=== PATIENT | male | born 1960 | race Caucasian/White ===

== ENCOUNTER 2018-04-29 05:54 | Inpatient (IN) ==
--- NOTE | 2018-04-29 06:23 | ED ---
HPI General Chief complaint: Abdominal Pain Stated complaint: Abd pain/ Time Seen by Provider: 04/29/18 06:06 Source: patient, EMS and old records reviewed Mode of arrival: EMS Limitations: no limitations History of Present Illness HPI narrative: The patient was transferred from [facility] and [place] where he went for evaluation due to right sided abdominal pain since the day before. He had constipation and dark urine. He denied any nausea vomiting dark stools or hematemesis. The patient had an abdominal CT that revealed portal hypertension changes cirrhotic liver and a 3.5 cm staghorn calculus on the right kidney with possible mild duodenitis and cholelithiasis. After reviewing his labs he appear to have pancytopenia and a urinary tract infection for which he was given Zosyn IV. 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 Onset (ago): day(s) (1) Location: abdomen Severity: severe (Resolved now) Quality: stabbing Pain Consistency: constant Relieving factors: medication Related Data Home Medications Medication Instructions Recorded Confirmed Unable to Obtain Home Meds 04/29/18 04/29/18 Allergies Allergy/AdvReac Type Severity Reaction Status Date / Time No Known Allergies Allergy Verified 04/29/18 06:05 Review of Systems ROS: all other systems reviewed are negative PMFSH History History Provided By: Patient, Medical Record and Advertising Account Manager / EMT Medical History Medical History Hx of hepatitis C (Acute) Kidney stone (Acute) Liver disease (Acute) Surgical History Surgical History Hx of cholecystectomy (Acute) Family History Family History Other Diabetes Hypertension Social History Social History Substance History: Active Abuse Second Hand Smoke Exposure: Yes Smoking Status: Former smoker Tobacco Type: Cigarettes How Often Do You Have a Drink Containing Alcohol: Monthly or less Recent Travel in [facility] within the Last 8 Weeks: No Recent Out of Country Travel within the Last 8 Weeks: No Exam Narrative Exam Narrative: GENERAL: Alert and oriented in no distress SKIN: Jaundice poor turgor multiple ecchymosis at various healing stages warm/ dry. HEAD: Atraumatic. Normocephalic. EYES: Pupils equal and round. No scleral icterus. No injection or drainage. ENT: No nasal bleeding or discharge. Mucous membranes pink and moist. NECK: Trachea midline. No JVD. CARDIOVASCULAR: Regular rate and rhythm. No murmur appreciated. RESPIRATORY: No accessory muscle use. Clear to auscultation. Breath sounds equal bilaterally. GASTROINTESTINAL: Abdomen soft, non-tender, nondistended. Hepatic and splenic margins not palpable. MUSCULOSKELETAL: No obvious deformities. No clubbing. No cyanosis. No edema. NEUROLOGICAL: Awake and alert. No obvious cranial nerve deficits. Motor grossly within normal limits. Normal speech. PSYCHIATRIC: Appropriate mood and affect; insight and judgment normal. Course Initial Documented Vital Signs Temperature 97.7 F 04/29/18 06:05 Pulse Rate 67 04/29/18 06:05 Respiratory Rate 15 04/29/18 06:05 Blood Pressure 129/58 L 04/29/18 06:05 Pulse Oximetry 98 04/29/18 06:05 Last Documented Vital Signs Temperature 98.7 F 04/29/18 16:00 Pulse Rate 79 04/29/18 16:00 Respiratory Rate 18 04/29/18 16:00 Blood Pressure 104/57 L 04/29/18 16:00 Pulse Oximetry 97 04/29/18 16:00 Medical Decision Making MDM Narrative Medical Screen Exam Complete: Yes Emergency Medical Condition: Yes Lab Data Result diagrams: 04/29/18 06:50 04/29/18 06:50 Lab Results 04/29/18 04/29/18 04/29/18 Range/Units 06:50 06:50 06:50 WBC 2.9 L (4.0-11.0) th/mm3 RBC 3.11 L (4.50-5.90) mil/mm3 Hgb 11.2 L (13.0-17.0) gm/dL Hct 33.5 L (39.0-51.0) % MCV 107.6 H (80.0-100.0) fL MCH 36.1 H (27.0-34.0) pg MCHC 33.6 (32.0-36.0) % RDW 18.3 H (11.6-17.2) % Plt Count 37 L (150-450) th/mm3 MPV 8.4 (7.0-11.0) fL Prelim Diff (Auto) Slide review pending Neut % (Auto) 65.2 (16.0-70.0) % Lymph % (Auto) 23.9 (9.0-44.0) % [place] % (Auto) 7.8 (0.0-8.0) % Eos % (Auto) 2.5 (0.0-4.0) % Baso % (Auto) 0.6 (0.0-2.0) % Neut # (Auto) 1.9 (1.8-7.7) th/mm3 Lymph # (Auto) 0.7 L (1.0-4.8) th/mm3 [place] # (Auto) 0.2 (0.0-0.9) th/mm3 Eos # (Auto) 0.1 (0.0-0.4) th/mm3 Baso # (Auto) 0.0 (0.0-0.2) th/mm3 WBC Differential . Diff Scan Auto diff confirmed Differential Comment . Platelet Estimate Low L (Normal) Platelet Morphology Normal (Normal) Tear Drop Cells 1+ H (None) Ovalocytes 1+ H (None) Acanthocytes (Spur) Occ H (None) PT 17.6 H (9.8-11.6) sec INR 1.7 Ratio Sodium 137 (136-145) meq/L Potassium 3.7 (3.5-5.1) meq/L Chloride 104 (98-107) meq/L Carbon Dioxide 25.1 (21.0-32.0) meq/L Anion Gap 8 (5-15) meq/L BUN 15 (7-18) mg/dL Creatinine 0.80 (0.60-1.30) mg/dL Estimated GFR Greater than 89 (>89) mL/min Random Glucose 126 H (74-106) mg/dL Calcium 7.8 L (8.5-10.1) mg/dL Total Bilirubin 8.5 H (0.2-1.0) mg/dL AST 233 H (15-37) U/L ALT 117 H (12-78) U/L Alkaline Phosphatase 117 (45-117) U/L Total Protein 7.5 (6.4-8.2) g/dL Albumin 2.0 L (3.4-5.0) g/dL Discharge Plan Discharge Disposition Patient Disposition: 30 Still Patient Discharge Condition Condition: Stable Discharge Details Diagnosis: Staghorn renal calculus, Acute UTI, Liver cirrhosis, Hep C w/o coma, chronic Physicians Team ED Provider: Michael Avilez Primary Care Provider: Primary Care Irasema Cosby Attending Provider: Nikole Hensley Other Providers: Lam Linder Discharge Interventions Interventions: ED Discharge Assessment Last Done: 04/29/18 08:41 Status ED Status: Left Department Discharge Information Discharge Date/Time: 04/29/18 08:42
[2018-04-29] MEDS ORDERED: Bisacodyl 10 MG Supp RECTAL PRN (06:28)
[2018-04-29] MEDS ORDERED: Piperacil/Tazo 3.375 GM Premix 50 ML IV.SIG SCH (06:30)
[2018-04-29 07:23] LABS: Baso % (Auto) 0.6 % (0.0-2.0); Eos # (Auto) 0.1 th/mm3 (0.0-0.4); Eos % (Auto) 2.5 % (0.0-4.0); Hematocrit 33.5 % (39.0-51.0); Hemoglobin 11.2 gm/dL (13.0-17.0); Lymph # (Auto) 0.7 th/mm3 (1.0-4.8); Lymph % (Auto) 23.9 % (9.0-44.0); Mean Corpuscular HGB Conc 33.6 % (32.0-36.0); Mean Corpuscular Hemoglobin 36.1 pg (27.0-34.0); Mean Corpuscular Volume 107.6 fL (80.0-100.0); Mean Platelet Volume 8.4 fL (7.0-11.0); Mono # (Auto) 0.2 th/mm3 (0.0-0.9); Mono % (Auto) 7.8 % (0.0-8.0); Neut # (Auto) 1.9 th/mm3 (1.8-7.7); Neut % (Auto) 65.2 % (16.0-70.0); Platelet Count 37 th/mm3 (150-450); Red Blood Count 3.11 mil/mm3 (4.50-5.90); Red Cell Distribution Width 18.3 % (11.6-17.2); White Blood Count 2.9 th/mm3 (4.0-11.0)
[2018-04-29 07:27] LABS: INR 1.7 Ratio; Prothrombin Time 17.6 sec (9.8-11.6)
[2018-04-29 07:41] LABS: Anion Gap 8 meq/L (5-15); Aspartate Aminotransferase 233 U/L (15-37); Blood Urea Nitrogen 15 mg/dL (7-18); Calcium 7.8 mg/dL (8.5-10.1); Carbon Dioxide 25.1 meq/L (21.0-32.0); Chloride 104 meq/L (98-107); Glomerular Filtration Rate Greater Than 89 mL/min (>89); Glucose,Random 126 mg/dL (74-106); Potassium 3.7 meq/L (3.5-5.1); Sodium 137 meq/L (136-145)
[2018-04-29 07:42] LABS: Alanine Aminotransferase 117 U/L (12-78)
[2018-04-29 07:44] LABS: Alkaline Phosphatase 117 U/L (45-117); Total Protein 7.5 g/dL (6.4-8.2)
[2018-04-29] MEDS: Sod Chloride 0.9% Inj 1,000 ML IV.CONT SCH ×2 (07:57→17:46)
[2018-04-29 08:05] LABS: Acanthocytes Occ; Ovalocytes 1+; Platelet Morphology Normal (Normal); Tear Drop Cells 1+
--- NOTE | 2018-04-29 09:16 | P.HP ---
History of Present Illness Primary Care Physician: No Primary Care Physician History of Present Illness: 58-year-old male with past medical history of hep C liver cirrhosis, is ambulating in the wheelchair, the patient was transferred from [facility] and [place] where he went for evaluation due to right sided abdominal pain since the day before. He had constipation and dark urine. He denied any nausea vomiting dark stools or hematemesis. The patient had an abdominal CT that revealed portal hypertension changes cirrhotic liver and a 3.5 cm staghorn calculus on the right kidney with possible mild duodenitis and cholelithiasis. After reviewing his labs he appear to have pancytopenia and a urinary tract infection for which he was given Zosyn IV. 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 Inpatient Certification: I certify that the inpatient services were ordered in accordance with Medicare regulations governing the order. This includes certification that hospital inpatient services are reasonable and necessary and in the case of services not specified as inpatient-only under 42 CFR 419.22(n), that they are appropriately provided as inpatient services in accordance to with the 2-midnight benchmark under 43 CFR 412.3(e) Estimated Total Length of Stay (Days): 3 Plans for Post Hospital Care: Not yet determined Review of Systems All other systems reviewed negative except as stated in HPI PMFSH - History History Provided By: Patient - Medical History Medical History: Medical History (Last Reviewed 04/29/18 @ 09:15 by Nikole Hensley MD) Hx of hepatitis C Kidney stone Liver disease - Surgical History Surgical History: Surgical History (Last Reviewed 04/29/18 @ 09:15 by Nikole Hensley MD) Hx of cholecystectomy - Family History Family History: Family History (Last Updated 04/29/18 @ 15:22 by Nikole Hensley MD) Other Diabetes Hypertension - Tobacco History Second Hand Smoke Exposure: Yes Tobacco Use In Past 30 Days: Yes Smoking Status: Former smoker Tobacco Type: Cigarettes - Alcohol History How Often Do You Have a Drink Containing Alcohol: Monthly or less - Substance Use History Substance History: Active Abuse - Substance Use Type Marijuana Status: Active Route Used: By Mouth Reason for Use: Calm Down, Feels Good - Travel History Recent Travel in the [facility] Within the Last 8 Weeks: No Recent Travel Out of the Country Within the Last 8 Weeks: No - Immunization History Tetanus Immunization: <5 Years Hx Influenza Vaccine This Season: Yes Medications and Allergies Active Medications: Active Medications Al Hydroxide/Mg Hydroxide (Milk Of Magnesia Liq) 30 ml PO Q12H PRN PRN Reason: Mild Constipation Bisacodyl (Dulcolax Supp) 10 mg RECTAL DAILY PRN PRN Reason: SEVERE CONSITIPATION Piperacillin/Tazobactam/Dextrose (Zosyn 3.375 Gm Premix) 50 mls @ 100 mls/hr IV.SIG Q6H [facility] Last Infusion: 04/29/18 08:52 Dose: Infused Sodium Chloride (Ns Inj) 1,000 mls @ 100 mls/hr IV.CONT .Q10H [facility] Last Admin: 04/29/18 07:57 Dose: 100 mls/hr Lactulose (Lactulose Liq) 30 ml PO DAILY PRN PRN Reason: SEVERE CONSITIPATION Morphine Sulfate (Morphine Inj) 2 mg IV.PUSH Q4H PRN PRN Reason: PAIN 2-10 IF CANT TAKE PO Sennosides (Senokot) 17.2 mg PO Q12H PRN PRN Reason: Moderate Constipation Sodium Chloride (Ns Flush) 2 ml IV.FLUSH BID [facility] Sodium Chloride (Ns Flush) 2 ml IV.FLUSH PRN PRN PRN Reason: FLUSH AFTER USING IV ACCESS Allergies Allergy/AdvReac Type Severity Reaction Status Date / Time No Known Allergies Allergy Verified 04/29/18 06:05 Home Medications Medication Instructions Recorded Confirmed Type ciprofloxacin HCl [Cipro] 500 mg PO DAILY 05/01/18 05/01/18 History cyclobenzaprine 10 mg PO TID PRN 05/01/18 05/01/18 History duloxetine 30 mg PO DAILY 05/01/18 05/01/18 History fludrocortisone 0.1 mg PO BID 05/01/18 05/01/18 History furosemide 40 mg PO BID 05/01/18 05/01/18 History lactulose 10 g PO TID 05/01/18 05/01/18 History magnesium oxide 400 mg PO DAILY 05/01/18 05/01/18 History ondansetron HCl 4 mg PO Q6-8H PRN 05/01/18 05/01/18 History pantoprazole 40 mg PO BID 05/01/18 05/01/18 History potassium chloride 20 meq PO DAILY 05/01/18 05/01/18 History spironolactone 50 mg PO BID 05/01/18 05/01/18 History tamsulosin 0.4 mg PO DAILY 05/01/18 05/01/18 History tenofovir disoproxil fumarate 300 mg PO DAILY 05/01/18 05/01/18 History Exam Vital signs: Vital Signs 04/29/18 06:05 04/29/18 06:55 04/29/18 07:38 Temperature 97.7 F 98.7 F Pulse Rate 67 65 65 Respiratory Rate 15 15 18 Blood Pressure 129/58 L 129/58 L 135/68 Pulse Oximetry 98 99 04/29/18 08:00 Temperature 98.8 F Pulse Rate 72 Respiratory Rate 18 Blood Pressure 114/57 L Pulse Oximetry 100 Intake & Output 04/28/18 04/29/18 04/29/18 18:59 06:59 18:59 Intake Total 50 / 50 Output Total 100 / 100 Balance -50 / -50 Weight 81.193 kg Intake: IV 50 / 50 Zosyn 3.375 GM Premix 50 ML @ 50 / 50 100 mls/hr IV.SIG Q6H [facility] Rx#: [id number] Output: Urine 100 / 100 Narrative: GENERAL: Pleasant A[place], in bed appears in some distress due to pain . SKIN: Warm and dry. HEAD: Atraumatic. Normocephalic. EYES: Pupils equal and round. No scleral icterus. No injection or drainage. ENT: No nasal bleeding or discharge. Mucous membranes pink and moist. NECK: Trachea midline. No JVD. CARDIOVASCULAR: Regular rate and rhythm. RESPIRATORY: No accessory muscle use. Clear to auscultation. Breath sounds equal bilaterally. GASTROINTESTINAL: Abdomen soft, diffuse tenderness, nondistended. No CVA tenderness, MUSCULOSKELETAL: Extremities without clubbing, cyanosis, or edema. No obvious deformities. NEUROLOGICAL: Awake and alert. No obvious cranial nerve deficits. Motor grossly within normal limits. Five out of 5 muscle strength in the arms and legs. Normal speech. PSYCHIATRIC: Appropriate mood and affect; insight and judgment normal. Results - Labs CBC & Chem 7: 05/01/18 08:00 05/01/18 08:00 Labs: Laboratory Results - last 24 hr 04/29/18 04/29/18 04/29/18 06:50 06:50 06:50 WBC 2.9 L RBC 3.11 L Hgb 11.2 L Hct 33.5 L MCV 107.6 H MCH 36.1 H MCHC 33.6 RDW 18.3 H Plt Count 37 L MPV 8.4 Prelim Diff (Auto) Slide review pending Neut % (Auto) 65.2 Lymph % (Auto) 23.9 [place] % (Auto) 7.8 Eos % (Auto) 2.5 Baso % (Auto) 0.6 Neut # (Auto) 1.9 Lymph # (Auto) 0.7 L [place] # (Auto) 0.2 Eos # (Auto) 0.1 Baso # (Auto) 0.0 WBC Differential . Diff Scan Auto diff confirmed Differential Comment . Platelet Estimate Low L Platelet Morphology Normal Tear Drop Cells 1+ H Ovalocytes 1+ H Acanthocytes (Spur) Occ H PT 17.6 H INR 1.7 Sodium 137 Potassium 3.7 Chloride 104 Carbon Dioxide 25.1 Anion Gap 8 BUN 15 Creatinine 0.80 Estimated GFR Greater than 89 Random Glucose 126 H Calcium 7.8 L Total Bilirubin 8.5 H AST 233 H ALT 117 H Alkaline Phosphatase 117 Total Protein 7.5 Albumin 2.0 L Caprini VTE Risk Assessment Caprini VTE Risk Assessment: Moderate/High Risk (score >= 2) VTE Pharmacological Exception Reason: Coagulopathy,INR elevated, High risk for bleeding Caprini Risk Assessment Model: Point Value = 1 Point Value = 2 Point Value = 3 Point Value = 5 Age 41-60 Minor surgery BMI > 25 kg/m2 Swollen legs Varicose veins or History of unexplained or recurrent spontaneous Oral contraceptives or hormone replacement Sepsis (< 1 month) Serious lung disease, including pneumonia (< 1 month) Abnormal pulmonary function Acute myocardial infarction Congestive heart failure (< 1 month) History of inflammatory bowel disease Medical patient at bed rest Age 61-74 Arthroscopic surgery Major open surgery (> 45 min) Laparoscopic surgery (> 45 min) Malignancy Confined to bed (> 72 hours) Immobilizing plaster cast Central venous access Age >= 75 History of VTE Family history of VTE Factor V Leiden Prothrombin [id number] Lupus anticoagulant Anticardiolipin antibodies Elevated serum homocysteine Heparin-induced thrombocytopenia Other congenital or acquired thrombophilia Stroke (< 1 month) Elective arthroplasty Hip, pelvis, or leg fracture Acute spinal cord injury (< 1 month) Prophylaxis Regimen: Total Risk Factor Score Risk Level Prophylaxis Regimen 0-1 Low Early ambulation 2 Moderate Order ONE of the following: *Sequential Compression Device (SCD) *Heparin 5000 units SQ BID 3-4 Higher Order ONE of the following medications: *Heparin 5000 units SQ TID *Enoxaparin/Lovenox 40 mg SQ daily (WT < 150 kg, CrCl > 30 mL/min) *Enoxaparin/Lovenox 30 mg SQ daily (WT < 150 kg, CrCl > 10-29 mL/min) *Enoxaparin/Lovenox 30 mg SQ BID (WT < 150 kg, CrCl > 30 mL/min) AND/OR *Sequential Compression Device (SCD) 5 or more Highest Order ONE of the following medications: *Heparin 5000 units SQ TID (Preferred with Epidurals) *Enoxaparin/Lovenox 40 mg SQ daily (WT < 150 kg, CrCl > 30 mL/min) *Enoxaparin/Lovenox 30 mg SQ daily (WT < 150 kg, CrCl > 10-29 mL/min) *Enoxaparin/Lovenox 30 mg SQ BID (WT < 150 kg, CrCl > 30 mL/min) AND *Sequential Compression Device (SCD) Assessment and Plan - Plan 58 y.o M with Right Staghorn calculi UTI complicate with renal stones Urology consulted for Rt >3cm staghorn calculi on CT - He needs to be stable enough for his stone procedure - No acute intervention needed per Dr Mckeon urology - He will need a PCNL in the future for treatment of his stone as an outpt - Pt will need to f/u as an outpt with [facility] after d/c - Pain meds per pain scale - On zosyn IV abx. Monitor U cx Chronic medical problems. Hep C and liver cirrhosis appears stable at this time, . Patient says he has been treated for Hep c Discussed Condition With: pt, nurse
--- NOTE | 2018-04-29 12:25 | P.CONURO ---
History of Present Illness Service: Urology Consult date: 04/29/18 Requesting Physician: Amado Sol Reason for Consult: Staghorn calculi Primary Care Provider: No Primary Care Physician Chief Complaint: Back / Flank pain History of Present Illness: The patient is 58y.o M who was transferred from [facility] and [place] where he went for evaluation due to right sided abdominal pain since the day before. He had constipation and dark urine. He denied any nausea vomiting dark stools or hematemesis. The patient had an abdominal CT that revealed portal hypertension changes cirrhotic liver and a 3.5 cm staghorn calculus on the right kidney with possible mild duodenitis and cholelithiasis. After reviewing his labs he appear to have pancytopenia and a urinary tract infection for which he was given Zosyn IV. 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 So Urology was consulted Its difficult to obtain pt's history. It looks like he had stones in the past and some of them he passed, some he had surgery for. He admits that knows about his staghorn for some time already. When he came to ER now his pain was mainly located at the RUQ which is more liver related then to his stone. No f/c/ n/v. Urine is brown color. Currently he has no c/o pain, its much better. Review of Systems All other systems reviewed negative except as stated in HPI PMFSH - History History Provided By: Patient - Medical History Medical History: Medical History (Last Reviewed 04/29/18 @ 09:18 by Sharan Carvalho) Hx of hepatitis C Kidney stone Liver disease - Surgical History Surgical History: Surgical History (Last Reviewed 04/29/18 @ 09:18 by Sharan Carvalho) Hx of cholecystectomy - Tobacco History Second Hand Smoke Exposure: Yes Tobacco Use In Past 30 Days: Yes Smoking Status: Former smoker Tobacco Type: Cigarettes - Alcohol History How Often Do You Have a Drink Containing Alcohol: Monthly or less - Substance Use History Substance History: Active Abuse - Substance Use Type Marijuana Status: Active Route Used: By Mouth Reason for Use: Calm Down, Feels Good - Travel History Recent Travel in the [place] Within the Last 8 Weeks: No Recent Travel Out of the Country Within the Last 8 Weeks: No - Immunization History Tetanus Immunization: <5 Years Hx Influenza Vaccine This Season: Yes Medications and Allergies Active Medications: Active Medications Al Hydroxide/Mg Hydroxide (Milk Of Magnesia Liq) 30 ml PO Q12H PRN PRN Reason: Mild Constipation Bisacodyl (Dulcolax Supp) 10 mg RECTAL DAILY PRN PRN Reason: SEVERE CONSITIPATION Sodium Chloride (Ns Inj) 1,000 mls @ 100 mls/hr IV.CONT .Q10H [facility] Last Admin: 04/29/18 07:57 Dose: 100 mls/hr Piperacillin/Tazobactam/Dextrose (Zosyn 3.375 Gm Premix) 50 mls @ 100 mls/hr IV.SIG Q6H [facility] Lactulose (Lactulose Liq) 30 ml PO DAILY PRN PRN Reason: SEVERE CONSITIPATION Morphine Sulfate (Morphine Inj) 2 mg IV.PUSH Q4H PRN PRN Reason: PAIN 2-10 IF CANT TAKE PO Sennosides (Senokot) 17.2 mg PO Q12H PRN PRN Reason: Moderate Constipation Sodium Chloride (Ns Flush) 2 ml IV.FLUSH BID [facility] Sodium Chloride (Ns Flush) 2 ml IV.FLUSH PRN PRN PRN Reason: FLUSH AFTER USING IV ACCESS Allergies Allergy/AdvReac Type Severity Reaction Status Date / Time No Known Allergies Allergy Verified 04/29/18 06:05 Home Medications Medication Instructions Recorded Confirmed Type Unable to Obtain Home Meds 04/29/18 04/29/18 History Physical Exam Vital Signs - 24 hr 04/29/18 06:05 04/29/18 06:55 04/29/18 07:38 Temperature 97.7 F 98.7 F Pulse Rate 67 65 65 Respiratory Rate 15 15 18 Blood Pressure 129/58 L 129/58 L 135/68 Pulse Oximetry 98 99 04/29/18 08:00 Temperature 98.8 F Pulse Rate 72 Respiratory Rate 18 Blood Pressure 114/57 L Pulse Oximetry 100 Physical Exam: GENERAL: This is a well-nourished, well-developed patient, in no apparent distress. SKIN: No rashes, ecchymoses or lesions. Cool and dry. HEAD: Atraumatic. Normocephalic. CARDIOVASCULAR: Regular rate and rhythm without murmurs, gallops, or rubs. RESPIRATORY: Clear to auscultation. Breath sounds equal bilaterally. No wheezes , rales, or rhonchi. GASTROINTESTINAL: Abdomen soft, non-tender, nondistended. GENITOURINARY: No CVAT MUSCULOSKELETAL: Extremities without clubbing, cyanosis, or edema. NEUROLOGICAL: Awake and alert. Laboratory Results - last 24 hr 04/29/18 04/29/18 04/29/18 06:50 06:50 06:50 WBC 2.9 L RBC 3.11 L Hgb 11.2 L Hct 33.5 L MCV 107.6 H MCH 36.1 H MCHC 33.6 RDW 18.3 H Plt Count 37 L MPV 8.4 Prelim Diff (Auto) Slide review pending Neut % (Auto) 65.2 Lymph % (Auto) 23.9 [place] % (Auto) 7.8 Eos % (Auto) 2.5 Baso % (Auto) 0.6 Neut # (Auto) 1.9 Lymph # (Auto) 0.7 L [place] # (Auto) 0.2 Eos # (Auto) 0.1 Baso # (Auto) 0.0 WBC Differential . Diff Scan Auto diff confirmed Differential Comment . Platelet Estimate Low L Platelet Morphology Normal Tear Drop Cells 1+ H Ovalocytes 1+ H Acanthocytes (Spur) Occ H PT 17.6 H INR 1.7 Sodium 137 Potassium 3.7 Chloride 104 Carbon Dioxide 25.1 Anion Gap 8 BUN 15 Creatinine 0.80 Estimated GFR Greater than 89 Random Glucose 126 H Calcium 7.8 L Total Bilirubin 8.5 H AST 233 H ALT 117 H Alkaline Phosphatase 117 Total Protein 7.5 Albumin 2.0 L Result Diagrams: 04/29/18 06:50 04/29/18 06:50 Assessment and Plan - Plan 58 y.o M with history as per HPI Urology consulted for Rt >3cm staghorn calculi on CT - Continue management of pt's other medical issues as per primary team - He needs to be stable enough for his stone procedure - No acute intervention needed - He will need a PCNL in the future for treatment of his stone as an outpt - Pt will need to f/u as an outpt with [facility] after d/c Discussed Condition With: Dr Kailash CERVANTES attending
[2018-04-29] MEDS: Sodium Chloride 0.9% 2 ML Flush BID IV.FLUSH SCH ×2 (15:29→20:26)
[2018-04-29] MEDS: Piperacil/Tazo 3.375 GM Premix 50 ML IV.SIG SCH ×2 (15:29→20:27)
[2018-04-29] MEDS: Morphine Sulfate Inj 2 MG/ML Vial IV.PUSH PRN (20:32)
[2018-04-30] MEDS: Piperacil/Tazo 3.375 GM Premix 50 ML IV.SIG SCH ×4 (02:37→21:11)
[2018-04-30] MEDS: Morphine Sulfate Inj 2 MG/ML Vial IV.PUSH PRN ×3 (02:42→19:00)
[2018-04-30] MEDS: Sod Chloride 0.9% Inj 1,000 ML IV.CONT SCH ×3 (04:07→21:15)
--- NOTE | 2018-04-30 07:56 | P.PN ---
Subjective Interval history: Patient doing well, tolerating PO and voiding/stooling well. Patient reports pain improved. He is adamant that he would like his stone removed if possible. Denies fever and chills. Physical Exam Vital signs: Vital Signs 04/29/18 08:00 04/29/18 12:00 04/29/18 16:00 Temperature 98.8 F 98.5 F 98.7 F Pulse Rate 72 71 79 Respiratory Rate 18 18 18 Blood Pressure 114/57 L 103/62 104/57 L Pulse Oximetry 100 98 97 04/29/18 20:00 04/30/18 00:00 04/30/18 02:50 Temperature 99.0 F 98.0 F Pulse Rate 95 H 70 Respiratory Rate 16 18 16 Blood Pressure 93/50 L 105/53 L Pulse Oximetry 100 100 04/30/18 03:50 Temperature 98.3 F Pulse Rate 65 Respiratory Rate 18 Blood Pressure 112/58 L Pulse Oximetry 100 Intake & Output 04/29/18 04/30/18 04/30/18 18:59 06:59 18:59 Intake Total 1600 / 1600 1120 / 1120 Output Total 100 / 100 Balance 1500 / 1500 1120 / 1120 Intake: IV 1100 / 1100 400 / 400 NS Inj 1,000 ML @ 100 mls/hr IV 1000 / 1000 300 / 300 .CONT .Q10H [facility] Rx#:[id number] Zosyn 3.375 GM Premix 50 ML @ 100 / 100 100 / 100 100 mls/hr IV.SIG Q6H [facility] Rx#: [id number] Oral 500 / 500 720 / 720 Output: Urine 100 / 100 Other: # Voids 4 Narrative: GENERAL: thin, male, in NAD, lying comfortably in bed SKIN: Warm and dry. HEAD: Normocephalic. PERRLA, mild scleral icterus. No injection or drainage. NECK: Supple, trachea midline. No JVD or lymphadenopathy. CARDIOVASCULAR: Regular rate and rhythm without murmurs, gallops, or rubs. RESPIRATORY: Breath sounds equal bilaterally. No accessory muscle use. GASTROINTESTINAL: Abdomen soft, non-tender, nondistended. MUSCULOSKELETAL: No cyanosis, or edema. BACK: Nontender without obvious deformity. No CVA tenderness. Results - Labs CBC & Chem 7: 04/30/18 08:27 04/30/18 08:27 Laboratory Results - last 24 hr 04/29/18 06:50 WBC Differential . Diff Scan Auto diff confirmed Platelet Estimate Low L Platelet Morphology Normal Tear Drop Cells 1+ H Ovalocytes 1+ H Acanthocytes (Spur) Occ H Assessment and Plan - Plan This is a 58 y/o CM with PMHX of Hepatitis C/Cirhhosis with known 3.5 cm staghorn calculus on the right kidney admitted for IP management of Pancytopenia and a Urinary tract infection, NAMRATA#2 1. UTI F/U urine Cx Cont. Zosyn until Cx results to transition to PO meds 2. Staghorn Calculus R Kidney Urology consulted for Rt >3cm staghorn calculi on CT Per their reccs : - No acute intervention needed - He will need a PCNL in the future for treatment of his stone as an outpt - Pt will need to f/u as an outpt with [facility] after d/c 3. Pancytopenia Will check HIV Hem Consulted Per patient chronic but with no w/u 4. Liver Cirrhosis/Hx of Hep C Elevated LFT's, will monitor Cont. outpatient F/U with GI 5. Anemia Hgb 10.2, MCV 105 Checking VtB12 and Iron studies On Ferrous Sulfate 6. DVT PPX SCD's 7. Dispo: await HemOnc reccs, F/u lab and Urine Cx Code Status: full Discussed Condition With: patient, RN, case mgmt
[2018-04-30 08:47] LABS: Baso % (Auto) 0.8 % (0.0-2.0); Eos # (Auto) 0.1 th/mm3 (0.0-0.4); Eos % (Auto) 2.4 % (0.0-4.0); Hematocrit 29.6 % (39.0-51.0); Hemoglobin 10.2 gm/dL (13.0-17.0); Lymph # (Auto) 0.5 th/mm3 (1.0-4.8); Mean Corpuscular HGB Conc 34.5 % (32.0-36.0); Mean Corpuscular Hemoglobin 36.4 pg (27.0-34.0); Mean Corpuscular Volume 105.5 fL (80.0-100.0); Mean Platelet Volume 8.1 fL (7.0-11.0); Mono # (Auto) 0.2 th/mm3 (0.0-0.9); Neut # (Auto) 1.7 th/mm3 (1.8-7.7); Neut % (Auto) 66.8 % (16.0-70.0); Platelet Count 32 th/mm3 (150-450); Red Blood Count 2.81 mil/mm3 (4.50-5.90); Red Cell Distribution Width 18.2 % (11.6-17.2); White Blood Count 2.6 th/mm3 (4.0-11.0)
[2018-04-30 09:01] LABS: Albumin 1.8 g/dL (3.4-5.0); Anion Gap 5 meq/L (5-15); Aspartate Aminotransferase 186 U/L (15-37); Blood Urea Nitrogen 11 mg/dL (7-18); Calcium 7.6 mg/dL (8.5-10.1); Carbon Dioxide 28.2 meq/L (21.0-32.0); Chloride 103 meq/L (98-107); Glomerular Filtration Rate Greater Than 89 mL/min (>89); Glucose,Random 110 mg/dL (74-106); Potassium 3.6 meq/L (3.5-5.1); Sodium 136 meq/L (136-145)
[2018-04-30 09:03] LABS: Alanine Aminotransferase 104 U/L (12-78)
[2018-04-30 09:05] LABS: Alkaline Phosphatase 104 U/L (45-117); Total Protein 6.7 g/dL (6.4-8.2)
[2018-04-30] MEDS: Sodium Chloride 0.9% 2 ML Flush BID IV.FLUSH SCH ×2 (09:26→21:12)
[2018-04-30 09:30] LABS: Platelet Morphology Normal (Normal)
--- NOTE | 2018-04-30 12:50 | MB ---
cc: Myke Carpio MD DATE: 04/30/2018 REQUESTING PHYSICIAN: Cathy Harrington MD REASON FOR CONSULTATION: Evaluation of pancytopenia. HISTORY OF PRESENT ILLNESS: A 58-year-old gentleman with a history of hepatitis C and cirrhosis, admitted with right lower quadrant abdominal pain and was diagnosed with ureteral calculus with obstruction in [facility]. He was transferred here for urology care and I was consulted as a b2b sales consultant for his pancytopenia. This is the first record of pancytopenia for him in this hospital as he has not been in the hospital in the past according to him. He did mention that he is aware of history of hepatitis C, cirrhosis, and has been considered for a liver transplant after having been treated for hepatitis C with Har[facility] about a year and half ago. Because of social reasons he did not go for transplant yet, but he was told that he had cirrhosis and low blood counts in the past. He is not bleeding. He has no fevers, sweats or weight loss. REVIEW OF SYSTEMS: He denies any nosebleeds, gum bleeds, blood in the stool or black stools. No headache, visual changes, or neck pain or motor or sensory symptoms. No cough, chest pain or shortness of breath. Abdominal pain started 3 days ago with right lower quadrant pain, increasing and associated with nausea. No hematemesis. No diarrhea; constipation. No frequency, urgency, or hematuria. He did have constipation and dark urine, but no sandra hematuria. PAST MEDICAL HISTORY: Hepatitis C, renal stones with a staghorn calculus and cirrhosis as mentioned. SURGERIES: He had cholecystectomy in the past. SOCIAL HISTORY: He had a heavy history of alcohol and smoking in the past. Denied IV drug abuse and HIV risk factors. FAMILY HISTORY: Noncontributory. MEDICATIONS: He is on: 1. Dulcolax. 2. Milk of Magnesia. 3. Zosyn 4. Lactulose. 5. Morphine p.r.n. 6. Senokot p.r.n. ALLERGIES: NO KNOWN DRUG ALLERGIES. PHYSICAL EXAMINATION: GENERAL: Chronically ill-appearing, middle-aged gentleman, appearing much older than stated age. Pallor present. Trace icterus present. No palpable adenopathy in the neck, axilla or groins. HEENT: Without oropharyngeal lesions, no gum bleeding, no , partially edentulous. No thrush or tonsillar enlargement. NEUROLOGIC: Alert and oriented x4. No tremors, no meningeal signs. NECK: No JVD. CARDIOVASCULAR: S1, S2. Regular rate and rhythm with a grade III-IV harsh systolic murmur. No gallops or rubs. LUNGS: Clear, without crackles or wheeze. ABDOMEN: Soft, but tender on the right lower quadrant, more than the other quadrants although abdomen is generally tender without guarding. No rigidity. No rebound. Questionable hepatomegaly. Deep palpation was not palpable. Questionable splenomegaly. No free fluid clinically, right renal angle tenderness appreciated. No masses. EXTREMITIES: Chronic lymphedema, right and left lower extremities without evidence of active DVTs. No petechia, ecchymosis or bruises. LABORATORY DATA: Yesterday his white count was 2.9, hemoglobin 11.2, hematocrit 33.5, MCV 107.6, platelets 37,000 with neutrophils of 65% and today's white count is 2.6, hemoglobin 10.2, hematocrit 29.6, MCV 105.5, platelets 32,000, neutrophils 66.8% with ANC of 1700. Chemistries showed a total bilirubin of 8.5 yesterday and 6.8 today, AST of 233 yesterday 186 today, ALT 117 yesterday and 114 today. Alkaline phosphatase is normal at 117 and albumin is low at 1.8. Creatinine is normal at 0.68. PT/INR is 1.7. ASSESSMENT AND PLAN: A 58-year-old gentleman with a history of hepatitis C and cirrhosis; has a mild to moderate degree of pancytopenia without evidence of sepsis or bleeding. This appears to be chronic cytopenias secondary to splenomegaly, possibly cirrhosis. This needs to be documented with an ultrasound of the spleen. In addition, we will rule out disseminated intravascular coagulation with PT/PTT, D-dimer and fibrinogen. Contribution to the thrombocytopenia from infection is also likely, but does not appear to be clinically significant at this point. He does not need any specific therapy for his cytopenias. We will document his splenomegaly with ultrasound and followup in the hospital. He does not need a platelet transfusion at this time unless he is scheduled for an invasive surgical procedure. I will see him in followup with the above results. MD DEMETRIO Monahan/kenton , 11:47 AM , 12:03 PM
[2018-04-30 14:36] LABS: INR 1.8 Ratio; Prothrombin Time 18.3 sec (9.8-11.6)
--- NOTE | 2018-04-30 14:42 | US ---
EXAM DATE: 04/30/2018 12:00 AM EDT AGE/SEX: 58 years / Male INDICATIONS: Thrombocytopenia. CLINICAL DATA: This is the patient's initial encounter. Patient reports that signs and symptoms have been present for 3 days and indicates a pain score of 0/10. MEDICAL/SURGICAL HISTORY: Hepatitis C. Kidney disease. Cirrhosis. Cholelithiasis. Cholecystect mahi. COMPARISON: No prior exams available for comparison. MEASUREMENTS: Spleen: 18.7 cm. FINDINGS: Spleen: No focal lesion. Enlarged. Increased central vascularity. Other: None. CONCLUSION: 1. Splenomegaly with spleen measuring 19 cm in length. There are prominent central splenic veins. Th is may reflect portal hypertension and possibly splenorenal collaterals in this patient with history of cirrhosis. Electronically signed by: Horace Sy MD 04/30/2018 2:41 PM EDT
[2018-04-30] MEDS: Ferrous Sulfate 325 MG Tablet PO SCH (16:13)
[2018-04-30 18:08] LABS: Hematocrit 23.3 % (39.0-51.0); Hemoglobin 8.1 gm/dL (13.0-17.0); Mean Corpuscular HGB Conc 34.8 % (32.0-36.0); Mean Corpuscular Hemoglobin 36.4 pg (27.0-34.0); Mean Corpuscular Volume 104.8 fL (80.0-100.0); Platelet Count 30 th/mm3 (150-450); Red Blood Count 2.22 mil/mm3 (4.50-5.90); Red Cell Distribution Width 18.1 % (11.6-17.2); White Blood Count 2.4 th/mm3 (4.0-11.0)
--- NOTE | 2018-04-30 18:30 | CT ---
EXAM DATE: 04/30/2018 5:25 PM EDT AGE/SEX: 58 years / Male INDICATIONS: Shortness of breath. CLINICAL DATA: This is the patient's initial encounter. Patient reports that signs and symptoms have been present for 1 day and indicates a pain score of 0/10. MEDICAL/SURGICAL HISTORY: Hepatitis C. Cirrhosis. Renal calculi. Cholecystectomy. RADIATION DOSE: 9.03 CTDI (mGy) COMPARISON: No prior exams available for comparison. TECHNIQUE: Volumetric scanning was performed using a multi-row detector CT scanner during bolus infu corey of 75 ml Omnipaque 350 (iohexol) nonionic water-soluble contrast as a single exam dose. The bulmaro a was post processed with a variety of visualization algorithms including full volume maximum intensi ty projection and sliding thin slab reformation. Using automated exposure control and adjustment of t he mA and/or kV according to patient size, radiation dose was kept as low as reasonably achievable to obtain optimal diagnostic quality images. DICOM format image data is available electronically for r eview and comparison. FINDINGS: Pulmonary Arteries: No filling defects are seen in the pulmonary arteries out to the subsegmental ve ssels. The left and right pulmonary arteries are normal in diameter. Lung: No infiltrates seen. Effusion: Tiny right pleural effusion measuring 11 mm. Mediastinum: No evidence of mediastinal or hilar adenopathy. Other: The axilla is unremarkable. CONCLUSION: 1. This study is negative for pulmonary embolism. 2. Tiny right pleural effusion. Electronically signed by: Toro Ashford MD 04/30/2018 6:28 PM EDT
[2018-04-30 20:36] LABS: Baso % (Auto) 0.9 % (0.0-2.0); Eos # (Auto) 0.1 th/mm3 (0.0-0.4); Eos % (Auto) 2.3 % (0.0-4.0); Hematocrit 30.2 % (39.0-51.0); Hemoglobin 10.1 gm/dL (13.0-17.0); Lymph # (Auto) 0.6 th/mm3 (1.0-4.8); Lymph % (Auto) 19.5 % (9.0-44.0); Mean Corpuscular HGB Conc 33.5 % (32.0-36.0); Mean Corpuscular Volume 107.4 fL (80.0-100.0); Mean Platelet Volume 8.6 fL (7.0-11.0); Mono # (Auto) 0.3 th/mm3 (0.0-0.9); Mono % (Auto) 10.6 % (0.0-8.0); Neut % (Auto) 66.7 % (16.0-70.0); Platelet Count 33 th/mm3 (150-450); Red Blood Count 2.81 mil/mm3 (4.50-5.90); Red Cell Distribution Width 18.5 % (11.6-17.2); White Blood Count 2.9 th/mm3 (4.0-11.0)
[2018-04-30] MEDS ORDERED: Heparin - SQ 10,000 UNITS/ML Vial SQ SCH (21:00)
[2018-04-30 21:12] LABS: Platelet Morphology Normal (Normal)
[2018-04-30] MEDS ORDERED: Morphine Inj 4 MG/ML Vial IV.PUSH ONE (21:26)
[2018-05-01] MEDS: Sod Chloride 0.9% Inj 1,000 ML IV.CONT SCH ×5 (00:48→23:00)
[2018-05-01] MEDS: Piperacil/Tazo 3.375 GM Premix 50 ML IV.SIG SCH ×4 (01:11→20:11)
[2018-05-01] MEDS: Morphine Sulfate Inj 2 MG/ML Vial IV.PUSH PRN ×4 (02:40→20:11)
[2018-05-01 09:14] LABS: Baso % (Auto) 0.6 % (0.0-2.0); Eos # (Auto) 0.1 th/mm3 (0.0-0.4); Eos % (Auto) 2.4 % (0.0-4.0); Hematocrit 24.6 % (39.0-51.0); Hemoglobin 8.5 gm/dL (13.0-17.0); Lymph # (Auto) 0.6 th/mm3 (1.0-4.8); Lymph % (Auto) 21.9 % (9.0-44.0); Mean Corpuscular HGB Conc 34.6 % (32.0-36.0); Mean Corpuscular Hemoglobin 36.5 pg (27.0-34.0); Mean Corpuscular Volume 105.3 fL (80.0-100.0); Mean Platelet Volume 8.4 fL (7.0-11.0); Mono # (Auto) 0.2 th/mm3 (0.0-0.9); Mono % (Auto) 8.7 % (0.0-8.0); Neut # (Auto) 1.8 th/mm3 (1.8-7.7); Neut % (Auto) 66.4 % (16.0-70.0); Platelet Count 31 th/mm3 (150-450); Red Blood Count 2.34 mil/mm3 (4.50-5.90); Red Cell Distribution Width 17.7 % (11.6-17.2); White Blood Count 2.7 th/mm3 (4.0-11.0)
[2018-05-01 09:20] LABS: Alanine Aminotransferase 95 U/L (12-78); Albumin 1.7 g/dL (3.4-5.0); Anion Gap 8 meq/L (5-15); Aspartate Aminotransferase 160 U/L (15-37); Blood Urea Nitrogen 7 mg/dL (7-18); Calcium 7.5 mg/dL (8.5-10.1); Carbon Dioxide 25.5 meq/L (21.0-32.0); Chloride 106 meq/L (98-107); Glomerular Filtration Rate Greater Than 89 mL/min (>89); Glucose,Random 108 mg/dL (74-106); Potassium 3.3 meq/L (3.5-5.1); Sodium 139 meq/L (136-145)
[2018-05-01 09:21] LABS: % Iron Saturation 87.4 % (20-50); Iron 115 mcg/dL (65-175); Total Iron Binding Capacity 132 mcg/dL (250-450)
[2018-05-01] MEDS: Sodium Chloride 0.9% 2 ML Flush BID IV.FLUSH SCH ×2 (09:21→20:11)
[2018-05-01 09:24] LABS: Alkaline Phosphatase 95 U/L (45-117); Total Protein 6.3 g/dL (6.4-8.2)
--- NOTE | 2018-05-01 09:33 | P.CONGI ---
History of Present Illness Consult date: 05/01/18 Consult reason: Cirrhosis Chief complaint: Kideny Stone, UTI, Jandice, Liver Failure, Hep C History of Present Illness: This is a 58-year-old male who is a very poor historian, patient was transferred from [facility] for urology on follow-up. 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 Our service has been consulted to participate in the management regarding patient's cirrhosis with current pancytopenia. At present patient denies any nausea, vomiting, abdominal pain and distention, changes in bowel habits. Denies hematochezia and melena. Does notice that his urine has been darker over the past couple days. Also has noticed some yellowing eyes. Patien has history of Hepatitis C S/P successful treatment with Harvoni years ago. Patient was previously being worked up by [facility] in [place] for liver transplant in 2017, however due to social issues and lack of support was not a candidate for liver transplant. Pt has most recently been in [place] where he states he was recently hospitalized, is unable to provide any details regarding hospitalization. He also reports compliance with his medication, however, I personally went through patients pill bottles and they are full even though they were prescribed on March 25 including Tenofovir and Ciprofloxacin. When asked about the Tenofovir, pt states he thinks he was diagnosed with Hepatitis B. Pt denies previous need for paracentesis. Last EGD and colonoscopy in November 2016, portal hypertensive gastropathy noted on EGD otherwise both exams were normal. Denies ETOH, quit five years ago but states he was never a heavy drinker. Quit smoking 2 weeks ago. Reports recent marijuana use. Pt is currently homeless. <Amalia Otero - Last Filed: 05/01/18 09:12> Review of Systems Constitutional: Reports weight loss Gastrointestinal: Reports abdominal pain, Denies black, tarry stools, Denies bright, red blood in stools, Denies change in bowel habits, Denies heartburn, Denies nausea, Denies vomiting <Amalia Otero - Last Filed: 05/01/18 09:12> PMFSH - History History Provided By: Patient - Medical History Medical History: Medical History (Last Reviewed 04/29/18 @ 19:12 by Michael Avilez DO) Hx of hepatitis C Kidney stone Liver disease - Surgical History Surgical History: Surgical History (Last Reviewed 04/29/18 @ 19:12 by Michael Avilez DO) Hx of cholecystectomy - Family History Family History: Family History (Last Reviewed 04/29/18 @ 19:12 by Michael Avilez DO) Other Diabetes Hypertension - Tobacco History Second Hand Smoke Exposure: Yes Tobacco Use In Past 30 Days: Yes Smoking Status: Former smoker Tobacco Type: Cigarettes - Alcohol History How Often Do You Have a Drink Containing Alcohol: Monthly or less - Substance Use History Substance History: Active Abuse - Substance Use Type Marijuana Status: Active Route Used: By Mouth Reason for Use: Calm Down, Feels Good - Travel History Recent Travel in the [facility] Within the Last 8 Weeks: No Recent Travel Out of the Country Within the Last 8 Weeks: No - Immunization History Tetanus Immunization: <5 Years Hx Influenza Vaccine This Season: Yes <Amalia Otero - Last Filed: 05/01/18 09:12> - Medical History Medical History: Medical History (Last Reviewed 04/29/18 @ 19:12 by Michael Avilez DO) Hx of hepatitis C Kidney stone Liver disease - Surgical History Surgical History: Surgical History (Last Reviewed 04/29/18 @ 19:12 by Michael Avilez DO) Hx of cholecystectomy - Family History Family History: Family History (Last Reviewed 04/29/18 @ 19:12 by Michael Avilez DO) Other Diabetes Hypertension <Pema Lyn - Last Filed: 05/01/18 11:49> Medications and Allergies Active Medications: Active Medications Al Hydroxide/Mg Hydroxide (Milk Of Magnesia Liq) 30 ml PO Q12H PRN PRN Reason: Mild Constipation Bisacodyl (Dulcolax Supp) 10 mg RECTAL DAILY PRN PRN Reason: SEVERE CONSITIPATION Ferrous Sulfate (Ferosul) 325 mg PO BID@1200,1700 [facility] Last Admin: 04/30/18 16:13 Dose: 325 mg Sodium Chloride (Ns Inj) 1,000 mls @ 125 mls/hr IV.CONT .Q8H [facility] Last Infusion: 05/01/18 02:40 Dose: 125 mls/hr Piperacillin/Tazobactam/Dextrose (Zosyn 3.375 Gm Premix) 50 mls @ 100 mls/hr IV.SIG Q6H [facility] Last Infusion: 05/01/18 01:47 Dose: Infused Lactulose (Lactulose Liq) 30 ml PO DAILY PRN PRN Reason: SEVERE CONSITIPATION Morphine Sulfate (Morphine Inj) 2 mg IV.PUSH Q4H PRN PRN Reason: PAIN 2-10 IF CANT TAKE PO Last Admin: 05/01/18 02:40 Dose: 2 mg Sennosides (Senokot) 17.2 mg PO Q12H PRN PRN Reason: Moderate Constipation Sodium Chloride (Ns Flush) 2 ml IV.FLUSH BID [facility] Last Admin: 04/30/18 21:12 Dose: Not Given Sodium Chloride (Ns Flush) 2 ml IV.FLUSH PRN PRN PRN Reason: FLUSH AFTER USING IV ACCESS <Amalia Otero - Last Filed: 05/01/18 09:12> Active Medications: Active Medications Al Hydroxide/Mg Hydroxide (Milk Of Magnesia Liq) 30 ml PO Q12H PRN PRN Reason: Mild Constipation Bisacodyl (Dulcolax Supp) 10 mg RECTAL DAILY PRN PRN Reason: SEVERE CONSITIPATION Ferrous Sulfate (Ferosul) 325 mg PO BID@1200,1700 [facility] Last Admin: 04/30/18 16:13 Dose: 325 mg Furosemide (Lasix) 20 mg PO DAILY [facility] Sodium Chloride (Ns Inj) 1,000 mls @ 125 mls/hr IV.CONT .Q8H [facility] Last Admin: 05/01/18 09:18 Dose: 125 mls/hr Piperacillin/Tazobactam/Dextrose (Zosyn 3.375 Gm Premix) 50 mls @ 100 mls/hr IV.SIG Q6H [facility] Last Infusion: 05/01/18 10:31 Dose: Infused Lactulose (Lactulose Liq) 30 ml PO DAILY PRN PRN Reason: SEVERE CONSITIPATION Lactulose (Lactulose Liq) 30 ml PO BID [facility] Morphine Sulfate (Morphine Inj) 2 mg IV.PUSH Q4H PRN PRN Reason: PAIN 2-10 IF CANT TAKE PO Last Admin: 05/01/18 09:18 Dose: 2 mg Pantoprazole Sodium (Protonix) 40 mg PO DAILY [facility] Sennosides (Senokot) 17.2 mg PO Q12H PRN PRN Reason: Moderate Constipation Sodium Chloride (Ns Flush) 2 ml IV.FLUSH BID [facility] Last Admin: 05/01/18 09:21 Dose: Not Given Sodium Chloride (Ns Flush) 2 ml IV.FLUSH PRN PRN PRN Reason: FLUSH AFTER USING IV ACCESS <Pema Lyn - Last Filed: 05/01/18 11:49> Allergies Allergy/AdvReac Type Severity Reaction Status Date / Time No Known Allergies Allergy Verified 04/29/18 06:05 Home Medications Medication Instructions Recorded Confirmed Type ciprofloxacin HCl [Cipro] 500 mg PO DAILY 05/01/18 05/01/18 History cyclobenzaprine 10 mg PO TID PRN 05/01/18 05/01/18 History duloxetine 30 mg PO DAILY 05/01/18 05/01/18 History fludrocortisone 0.1 mg PO BID 05/01/18 05/01/18 History furosemide 40 mg PO BID 05/01/18 05/01/18 History magnesium oxide 400 mg PO DAILY 05/01/18 05/01/18 History ondansetron HCl 4 mg PO Q6-8H PRN 05/01/18 05/01/18 History pantoprazole 40 mg PO BID 05/01/18 05/01/18 History potassium chloride 20 meq PO DAILY 05/01/18 05/01/18 History spironolactone 50 mg PO BID 05/01/18 05/01/18 History tamsulosin 0.4 mg PO DAILY 05/01/18 05/01/18 History tenofovir disoproxil fumarate 300 mg PO DAILY 05/01/18 05/01/18 History Exam Vital signs: Vital Signs 04/30/18 12:00 04/30/18 19:17 04/30/18 22:05 Temperature 97.7 F 98.7 F Pulse Rate 71 71 Respiratory Rate 16 18 16 Blood Pressure 95/58 L 112/56 L Pulse Oximetry 100 99 04/30/18 22:54 04/30/18 23:10 04/30/18 23:17 Temperature 97.2 F L 97.5 F L 97.5 F L Pulse Rate 71 69 72 Respiratory Rate 16 16 16 Blood Pressure 110/65 103/55 L 102/57 L Pulse Oximetry 100 95 99 05/01/18 02:28 05/01/18 08:00 Temperature 97.9 F 98.1 F Pulse Rate 69 65 Respiratory Rate 17 19 Blood Pressure 116/60 109/62 Pulse Oximetry 98 97 Intake & Output 04/30/18 05/01/18 05/01/18 18:59 06:59 18:59 Intake Total 800 / 800 2131 / 2131 Output Total 450 / 450 Balance 800 / 800 1681 / 1681 Weight 76.3 kg Intake: IV 800 / 800 1400 / 1400 NS Inj 1,000 ML @ 125 mls/hr IV 700 / 700 1300 / 1300 .CONT .Q8H [facility] Rx#:[id number] Zosyn 3.375 GM Premix 50 ML @ 100 / 100 100 / 100 100 mls/hr IV.SIG Q6H [facility] Rx#: [id number] Oral 480 / 480 Intake (Blood Product) Amt 251 / 251 Pre-Pooled Cryo Thawed 10units 251 / 251 Unit [id number] Output: Urine 450 / 450 Other: Weight On Admission 76.3 kg - Constitutional no acute distress - Routine HEENT Exam Head: Present: normocephalic, atraumatic Eye: Present: conjunctival icterus - Routine Respiratory Exam Absent: accessory muscle use - Routine Cardiovascular Exam Present: murmur - Routine Abdominal Exam Present: soft, normoactive bowel sounds. Absent: tenderness, distended - Routine Skin Exam Present: dry, warm, jaundice - Routine Neurological Exam Present: alert, oriented X3 <Amalia Otero - Last Filed: 05/01/18 09:12> Vital signs: Vital Signs 04/30/18 12:00 04/30/18 19:17 04/30/18 22:05 Temperature 97.7 F 98.7 F Pulse Rate 71 71 Respiratory Rate 16 18 16 Blood Pressure 95/58 L 112/56 L Pulse Oximetry 100 99 04/30/18 22:54 04/30/18 23:10 04/30/18 23:17 Temperature 97.2 F L 97.5 F L 97.5 F L Pulse Rate 71 69 72 Respiratory Rate 16 16 16 Blood Pressure 110/65 103/55 L 102/57 L Pulse Oximetry 100 95 99 05/01/18 02:28 05/01/18 08:00 Temperature 97.9 F 98.1 F Pulse Rate 69 65 Respiratory Rate 17 19 Blood Pressure 116/60 109/62 Pulse Oximetry 98 97 Intake & Output 04/30/18 05/01/18 05/01/18 18:59 06:59 18:59 Intake Total 800 / 800 2131 / 2131 750 / 750 Output Total 450 / 450 Balance 800 / 800 1681 / 1681 750 / 750 Weight 76.3 kg Intake: IV 800 / 800 1400 / 1400 750 / 750 NS Inj 1,000 ML @ 125 mls/hr IV 700 / 700 1300 / 1300 700 / 700 .CONT .Q8H [facility] Rx#:[id number] Zosyn 3.375 GM Premix 50 ML @ 100 / 100 100 / 100 50 / 50 100 mls/hr IV.SIG Q6H [facility] Rx#: [id number] Oral 480 / 480 Intake (Blood Product) Amt 251 / 251 Pre-Pooled Cryo Thawed 10units 251 / 251 Unit [id number] Output: Urine 450 / 450 Other: Weight On Admission 76.3 kg <Pema Lyn - Last Filed: 05/01/18 11:49> Results - Labs CBC & Chem 7: 04/30/18 20:10 04/30/18 08:27 Labs: Laboratory Results - last 24 hr 04/30/18 04/30/18 04/30/18 08:27 08:27 12:44 WBC RBC Hgb Hct MCV MCH MCHC RDW Plt Count MPV Prelim Diff (Auto) Neut % (Auto) Lymph % (Auto) [place] % (Auto) Eos % (Auto) Baso % (Auto) Neut # (Auto) Lymph # (Auto) [place] # (Auto) Eos # (Auto) Baso # (Auto) WBC Differential . Diff Scan Auto diff confirmed Differential Comment Platelet Estimate Low L Platelet Morphology Normal PT INR APTT Fibrinogen D-Dimer Quant (PE/DVT) 1.68 H Lactic Acid Vitamin B12 775 Blood Type Blood Bank Comment 04/30/18 04/30/18 04/30/18 12:44 17:30 20:09 WBC 2.4 L RBC 2.22 L Hgb 8.1 L D Hct 23.3 L MCV 104.8 H MCH 36.4 H MCHC 34.8 RDW 18.1 H Plt Count 30 L MPV 8.0 Prelim Diff (Auto) Neut % (Auto) Lymph % (Auto) [place] % (Auto) Eos % (Auto) Baso % (Auto) Neut # (Auto) Lymph # (Auto) [place] # (Auto) Eos # (Auto) Baso # (Auto) WBC Differential Diff Scan Differential Comment Platelet Estimate Platelet Morphology PT 18.3 H INR 1.8 APTT 36.0 H Fibrinogen 79 L* D-Dimer Quant (PE/DVT) Lactic Acid Vitamin B12 Blood Type O Negative Blood Bank Comment 04/30/18 04/30/18 20:10 20:10 WBC 2.9 L RBC 2.81 L Hgb 10.1 L D Hct 30.2 L MCV 107.4 H MCH 36.0 H MCHC 33.5 RDW 18.5 H Plt Count 33 L MPV 8.6 Prelim Diff (Auto) Slide review pending Neut % (Auto) 66.7 Lymph % (Auto) 19.5 [place] % (Auto) 10.6 H Eos % (Auto) 2.3 Baso % (Auto) 0.9 Neut # (Auto) 2.0 Lymph # (Auto) 0.6 L [place] # (Auto) 0.3 Eos # (Auto) 0.1 Baso # (Auto) 0.0 WBC Differential . Diff Scan Auto diff confirmed Differential Comment . Platelet Estimate Low L Platelet Morphology Normal PT INR APTT Fibrinogen D-Dimer Quant (PE/DVT) Lactic Acid 2.3 H Vitamin B12 Blood Type Blood Bank Comment - Imaging Impressions Chest CTA 04/30/18 00:00 CONCLUSION: 1. This study is negative for pulmonary embolism. 2. Tiny right pleural effusion. Spleen Ultrasound 04/30/18 00:00 CONCLUSION: 1. Splenomegaly with spleen measuring 19 cm in length. There are prominent central splenic veins. This may reflect portal hypertension and possibly splenorenal collaterals in this patient with history of cirrhosis. <Amalia Otero - Last Filed: 05/01/18 09:12> - Labs CBC & Chem 7: 05/01/18 08:00 05/01/18 08:00 Labs: Laboratory Results - last 24 hr 04/30/18 04/30/18 04/30/18 08:27 12:44 12:44 WBC RBC Hgb Hct MCV MCH MCHC RDW Plt Count MPV Prelim Diff (Auto) Neut % (Auto) Lymph % (Auto) [place] % (Auto) Eos % (Auto) Baso % (Auto) Neut # (Auto) Lymph # (Auto) [place] # (Auto) Eos # (Auto) Baso # (Auto) WBC Differential Diff Scan Differential Comment Platelet Estimate Platelet Morphology Ovalocytes PT 18.3 H INR 1.8 APTT 36.0 H Fibrinogen 79 L* D-Dimer Quant (PE/DVT) 1.68 H Sodium Potassium Chloride Carbon Dioxide Anion Gap BUN Creatinine Estimated GFR Random Glucose Lactic Acid Calcium Iron TIBC % Saturation Total Bilirubin AST ALT Alkaline Phosphatase Ammonia Total Protein Albumin Vitamin B12 775 Vitamin D 25-Hydroxy HIV 1&2 Ab/P24 Ag 4thGn Blood Type Blood Bank Comment 04/30/18 04/30/18 04/30/18 17:30 20:09 20:10 WBC 2.4 L RBC 2.22 L Hgb 8.1 L D Hct 23.3 L MCV 104.8 H MCH 36.4 H MCHC 34.8 RDW 18.1 H Plt Count 30 L MPV 8.0 Prelim Diff (Auto) Neut % (Auto) Lymph % (Auto) [place] % (Auto) Eos % (Auto) Baso % (Auto) Neut # (Auto) Lymph # (Auto) [place] # (Auto) Eos # (Auto) Baso # (Auto) WBC Differential Diff Scan Differential Comment Platelet Estimate Platelet Morphology Ovalocytes PT INR APTT Fibrinogen D-Dimer Quant (PE/DVT) Sodium Potassium Chloride Carbon Dioxide Anion Gap BUN Creatinine Estimated GFR Random Glucose Lactic Acid 2.3 H Calcium Iron TIBC % Saturation Total Bilirubin AST ALT Alkaline Phosphatase Ammonia Total Protein Albumin Vitamin B12 Vitamin D 25-Hydroxy HIV 1&2 Ab/P24 Ag 4thGn Blood Type O Negative Blood Bank Comment 04/30/18 05/01/18 05/01/18 20:10 08:00 08:00 WBC 2.9 L 2.7 L RBC 2.81 L 2.34 L Hgb 10.1 L D 8.5 L Hct 30.2 L 24.6 L MCV 107.4 H 105.3 H MCH 36.0 H 36.5 H MCHC 33.5 34.6 RDW 18.5 H 17.7 H Plt Count 33 L 31 L MPV 8.6 8.4 Prelim Diff (Auto) Slide review pending Slide review pending Neut % (Auto) 66.7 66.4 Lymph % (Auto) 19.5 21.9 [place] % (Auto) 10.6 H 8.7 H Eos % (Auto) 2.3 2.4 Baso % (Auto) 0.9 0.6 Neut # (Auto) 2.0 1.8 Lymph # (Auto) 0.6 L 0.6 L [place] # (Auto) 0.3 0.2 Eos # (Auto) 0.1 0.1 Baso # (Auto) 0.0 0.0 WBC Differential . . Diff Scan Auto diff confirmed Auto diff confirmed Differential Comment . . Platelet Estimate Low L Low L Platelet Morphology Normal Normal Ovalocytes 1+ H PT INR APTT Fibrinogen D-Dimer Quant (PE/DVT) Sodium 139 Potassium 3.3 L Chloride 106 Carbon Dioxide 25.5 Anion Gap 8 BUN 7 Creatinine 0.55 L Estimated GFR Greater than 89 Random Glucose 108 H Lactic Acid Calcium 7.5 L Iron 115 TIBC 132 L % Saturation 87.4 H Total Bilirubin 6.7 H AST 160 H ALT 95 H Alkaline Phosphatase 95 Ammonia Total Protein 6.3 L Albumin 1.7 L Vitamin B12 Vitamin D 25-Hydroxy 14.4 L HIV 1&2 Ab/P24 Ag 4thGn Blood Type Blood Bank Comment 05/01/18 05/01/18 08:00 10:29 WBC RBC Hgb Hct MCV MCH MCHC RDW Plt Count MPV Prelim Diff (Auto) Neut % (Auto) Lymph % (Auto) [place] % (Auto) Eos % (Auto) Baso % (Auto) Neut # (Auto) Lymph # (Auto) [place] # (Auto) Eos # (Auto) Baso # (Auto) WBC Differential Diff Scan Differential Comment Platelet Estimate Platelet Morphology Ovalocytes PT INR APTT Fibrinogen D-Dimer Quant (PE/DVT) Sodium Potassium Chloride Carbon Dioxide Anion Gap BUN Creatinine Estimated GFR Random Glucose Lactic Acid Calcium Iron TIBC % Saturation Total Bilirubin AST ALT Alkaline Phosphatase Ammonia 66 H Total Protein Albumin Vitamin B12 Vitamin D 25-Hydroxy HIV 1&2 Ab/P24 Ag 4thGn Nonreactive Blood Type Blood Bank Comment - Imaging Impressions Chest CTA 04/30/18 00:00 CONCLUSION: 1. This study is negative for pulmonary embolism. 2. Tiny right pleural effusion. Spleen Ultrasound 04/30/18 00:00 CONCLUSION: 1. Splenomegaly with spleen measuring 19 cm in length. There are prominent central splenic veins. This may reflect portal hypertension and possibly splenorenal collaterals in this patient with history of cirrhosis. <Pema Lyn - Last Filed: 05/01/18 11:49> Assessment and Plan - Plan Assessment: - Cirrhosis with history of Hepatitis C S/P treatment with Har[facility]oni and states recent diagnosis of Hepatitis B, was prescribed Tenofovir which is does not appear he is compliant with. Patient was previously being worked up by [facility] in [place] for liver transplant in 2017, however due to social issues and lack of support was not a candidate for liver transplant. Pt has most recently been in [place] where he states he was r ecently hospitalized, is unable to provide any details regarding hospitalization. Pt denies previous need for paracentesis. Last EGD and colonoscopy in November 2016, portal hypertensive gastropathy noted on EGD otherwise both exams were normal. Denies ETOH, quit five years ago but states he was never a heavy drinker. Quit smoking 2 weeks ago. Reports recent marijuana use. Pt is currently homeless. - Pancytopenia- Hematology following - Coagulopathy- INR 1.8 - Hypoalbuminemia- albumin 1.7 Plan: Monitor LFTs Avoid hepatotoxins Hematology following Check ammonia Lactulose Spironolactone Lasix Protonix Hep B quant Hep C quant Further recommendations to follow Pt has been seen and examined by myself and Dr. Lyn and this note is written on his behalf <Amalia Otero - Last Filed: 05/01/18 09:12> - Plan Seen and examined with VISUAL PRESENTATION MANAGER, reports eradication of hep c at [facility] last year. Labs ordered. Urology pugh in progress, probable reason for lower abdominal pain. Monitor labs. Thank you The exam, history, and the medical decision-making described in the above note were completed with the assistance of the mid-level provider. I reviewed and agree with the findings presented. I attest that I had a [id number] encounter with the patient on the same day, and personally performed and documented my assessment and findings in the medical record. <Pema Lyn - Last Filed: 05/01/18 11:49>
[2018-05-01 10:18] LABS: Ovalocytes 1+; Platelet Morphology Normal (Normal)
[2018-05-01 11:52] LABS: Hepatitis A IgM Antibody Nonreactive (Nonreactive)
[2018-05-01 11:54] LABS: Hepatitits B Surface Antigen Reactive (Nonreactive)
[2018-05-01] MEDS: Ferrous Sulfate 325 MG Tablet PO SCH ×2 (12:41→17:32)
--- NOTE | 2018-05-01 13:29 | P.PN ---
Subjective Interval history: Patient is in bed says pain is fairly controlled by medications. Mainly pain is on the right upper abdomen. No fever or chills overnight. No overt bleeding. Platelets stable Physical Exam Vital signs: Vital Signs 04/30/18 19:17 04/30/18 22:05 04/30/18 22:54 Temperature 98.7 F 97.2 F L Pulse Rate 71 71 Respiratory Rate 18 16 16 Blood Pressure 112/56 L 110/65 Pulse Oximetry 99 100 04/30/18 23:10 04/30/18 23:17 05/01/18 02:28 Temperature 97.5 F L 97.5 F L 97.9 F Pulse Rate 69 72 69 Respiratory Rate 16 16 17 Blood Pressure 103/55 L 102/57 L 116/60 Pulse Oximetry 95 99 98 05/01/18 08:00 05/01/18 12:00 Temperature 98.1 F 97.1 F L Pulse Rate 65 91 H Respiratory Rate 19 19 Blood Pressure 109/62 132/67 Pulse Oximetry 97 96 Intake & Output 04/30/18 05/01/18 05/01/18 18:59 06:59 18:59 Intake Total 800 / 800 2131 / 2131 750 / 750 Output Total 450 / 450 Balance 800 / 800 1681 / 1681 750 / 750 Weight 76.3 kg Intake: IV 800 / 800 1400 / 1400 750 / 750 NS Inj 1,000 ML @ 125 mls/hr IV 700 / 700 1300 / 1300 700 / 700 .CONT .Q8H NIRAJ Rx#:[id number] Zosyn 3.375 GM Premix 50 ML @ 100 / 100 100 / 100 50 / 50 100 mls/hr IV.SIG Q6H NIRAJ Rx#: [id number] Oral 480 / 480 Intake (Blood Product) Amt 251 / 251 Pre-Pooled Cryo Thawed 10units 251 / 251 Unit [id number] Output: Urine 450 / 450 Other: Weight On Admission 76.3 kg Narrative: GENERAL: Pleasant AA male, in bed appears in nad. SKIN: Warm and dry. HEAD: Atraumatic. Normocephalic. EYES: Pupils equal and round. No scleral icterus. No injection or drainage. ENT: No nasal bleeding or discharge. Mucous membranes pink and moist. NECK: Trachea midline. No JVD. CARDIOVASCULAR: Regular rate and rhythm. RESPIRATORY: No accessory muscle use. Clear to auscultation. Breath sounds equal bilaterally. GASTROINTESTINAL: Abdomen soft, diffuse tenderness, nondistended. No CVA tenderness, MUSCULOSKELETAL: Extremities without clubbing, cyanosis, or edema. No obvious deformities. NEUROLOGICAL: Awake and alert. No obvious cranial nerve deficits. Motor grossly within normal limits. Five out of 5 muscle strength in the arms and legs. Normal speech. PSYCHIATRIC: Appropriate mood and affect; insight and judgment normal. Results - Labs CBC & Chem 7: 05/01/18 08:00 05/01/18 08:00 Laboratory Results - last 24 hr 04/30/18 04/30/18 04/30/18 12:44 12:44 17:30 WBC 2.4 L RBC 2.22 L Hgb 8.1 L D Hct 23.3 L MCV 104.8 H MCH 36.4 H MCHC 34.8 RDW 18.1 H Plt Count 30 L MPV 8.0 Prelim Diff (Auto) Neut % (Auto) Lymph % (Auto) Walton % (Auto) Eos % (Auto) Baso % (Auto) Neut # (Auto) Lymph # (Auto) Walton # (Auto) Eos # (Auto) Baso # (Auto) WBC Differential Diff Scan Differential Comment Platelet Estimate Platelet Morphology Ovalocytes PT 18.3 H INR 1.8 APTT 36.0 H Fibrinogen 79 L* D-Dimer Quant (PE/DVT) 1.68 H Sodium Potassium Chloride Carbon Dioxide Anion Gap BUN Creatinine Estimated GFR Random Glucose Lactic Acid Calcium Iron TIBC % Saturation Total Bilirubin AST ALT Alkaline Phosphatase Ammonia Total Protein Albumin Vitamin D 25-Hydroxy Hepatitis A IgM Ab Hep Bs Antigen Hep B Core IgM Ab Hep C IgG Ab HIV 1&2 Ab/P24 Ag [facility] Blood Type Blood Bank Comment 04/30/18 04/30/18 04/30/18 20:09 20:10 20:10 WBC 2.9 L RBC 2.81 L Hgb 10.1 L D Hct 30.2 L MCV 107.4 H MCH 36.0 H MCHC 33.5 RDW 18.5 H Plt Count 33 L MPV 8.6 Prelim Diff (Auto) Slide review pending Neut % (Auto) 66.7 Lymph % (Auto) 19.5 Walton % (Auto) 10.6 H Eos % (Auto) 2.3 Baso % (Auto) 0.9 Neut # (Auto) 2.0 Lymph # (Auto) 0.6 L Walton # (Auto) 0.3 Eos # (Auto) 0.1 Baso # (Auto) 0.0 WBC Differential . Diff Scan Auto diff confirmed Differential Comment . Platelet Estimate Low L Platelet Morphology Normal Ovalocytes PT INR APTT Fibrinogen D-Dimer Quant (PE/DVT) Sodium Potassium Chloride Carbon Dioxide Anion Gap BUN Creatinine Estimated GFR Random Glucose Lactic Acid 2.3 H Calcium Iron TIBC % Saturation Total Bilirubin AST ALT Alkaline Phosphatase Ammonia Total Protein Albumin Vitamin D 25-Hydroxy Hepatitis A IgM Ab Hep Bs Antigen Hep B Core IgM Ab Hep C IgG Ab HIV 1&2 Ab/P24 Ag 4[facility] Blood Type O Negative Blood Bank Comment 05/01/18 05/01/18 05/01/18 08:00 08:00 08:00 WBC 2.7 L RBC 2.34 L Hgb 8.5 L Hct 24.6 L MCV 105.3 H MCH 36.5 H MCHC 34.6 RDW 17.7 H Plt Count 31 L MPV 8.4 Prelim Diff (Auto) Slide review pending Neut % (Auto) 66.4 Lymph % (Auto) 21.9 Walton % (Auto) 8.7 H Eos % (Auto) 2.4 Baso % (Auto) 0.6 Neut # (Auto) 1.8 Lymph # (Auto) 0.6 L Walton # (Auto) 0.2 Eos # (Auto) 0.1 Baso # (Auto) 0.0 WBC Differential . Diff Scan Auto diff confirmed Differential Comment . Platelet Estimate Low L Platelet Morphology Normal Ovalocytes 1+ H PT INR APTT Fibrinogen D-Dimer Quant (PE/DVT) Sodium 139 Potassium 3.3 L Chloride 106 Carbon Dioxide 25.5 Anion Gap 8 BUN 7 Creatinine 0.55 L Estimated GFR Greater than 89 Random Glucose 108 H Lactic Acid Calcium 7.5 L Iron 115 TIBC 132 L % Saturation 87.4 H Total Bilirubin 6.7 H AST 160 H ALT 95 H Alkaline Phosphatase 95 Ammonia Total Protein 6.3 L Albumin 1.7 L Vitamin D 25-Hydroxy 14.4 L Hepatitis A IgM Ab Nonreactive Hep Bs Antigen Reactive H Hep B Core IgM Ab Reactive H Hep C IgG Ab Reactive H HIV 1&2 Ab/P24 Ag 4thGn Blood Type Blood Bank Comment 05/01/18 05/01/18 08:00 10:29 WBC RBC Hgb Hct MCV MCH MCHC RDW Plt Count MPV Prelim Diff (Auto) Neut % (Auto) Lymph % (Auto) Walton % (Auto) Eos % (Auto) Baso % (Auto) Neut # (Auto) Lymph # (Auto) Walton # (Auto) Eos # (Auto) Baso # (Auto) WBC Differential Diff Scan Differential Comment Platelet Estimate Platelet Morphology Ovalocytes PT INR APTT Fibrinogen D-Dimer Quant (PE/DVT) Sodium Potassium Chloride Carbon Dioxide Anion Gap BUN Creatinine Estimated GFR Random Glucose Lactic Acid Calcium Iron TIBC % Saturation Total Bilirubin AST ALT Alkaline Phosphatase Ammonia 66 H Total Protein Albumin Vitamin D 25-Hydroxy Hepatitis A IgM Ab Hep Bs Antigen Hep B Core IgM Ab Hep C IgG Ab HIV 1&2 Ab/P24 Ag 4thGn Nonreactive Blood Type Blood Bank Comment Microbiology 04/30/18 11:05 Random Urine Urine Culture - Preliminary Yeast - ID to follow - Imaging Impressions Chest CTA 04/30/18 00:00 CONCLUSION: 1. This study is negative for pulmonary embolism. 2. Tiny right pleural effusion. Spleen Ultrasound 04/30/18 00:00 CONCLUSION: 1. Splenomegaly with spleen measuring 19 cm in length. There are prominent central splenic veins. This may reflect portal hypertension and possibly splenorenal collaterals in this patient with history of cirrhosis. Assessment and Plan - Plan This is a 58 y/o CM with PMHX of Hepatitis C/Cirhhosis with known 3.5 cm staghorn calculus on the right kidney admitted for IP management of Pancytopenia and a Urinary tract infection UTI complicated by Staghorn Calculus R Kidney F/U urine Cx Cont. Zosyn until Cx results to transition to PO meds Staghorn Calculus R Kidney Urology consulted for Rt >3cm staghorn calculi on CT. Appreciate urology input: - No acute intervention needed - He will need a PCNL in the future for treatment of his stone as an outpt - Pt will need to f/u as an outpt with [facility] after d/c Pancytopenia Will check HIV Hem Consulted Per patient chronic but with no w/u Liver Cirrhosis/Hx of Hep C Elevated LFT's, will monitor Cont. outpatient F/U with GI Anemia Hgb 10.2, MCV 105 Checking VtB12 and Iron studies On Ferrous Sulfate DVT PPX SCD's Discussed Condition With: patient, nurse DC plan: pending improvement and clearance by consultants. HemOnc consulted for eval of pancytopenia. F/u lab and Urine Cx
[2018-05-02] MEDS: Morphine Sulfate Inj 2 MG/ML Vial IV.PUSH PRN ×5 (02:00→21:05)
[2018-05-02] MEDS: Piperacil/Tazo 3.375 GM Premix 50 ML IV.SIG SCH ×4 (02:00→21:04)
[2018-05-02] MEDS: Sod Chloride 0.9% Inj 1,000 ML IV.CONT SCH ×4 (08:01→23:44)
[2018-05-02] MEDS: Furosemide 20 MG Tablet PO SCH (09:01)
[2018-05-02] MEDS: Sodium Chloride 0.9% 2 ML Flush BID IV.FLUSH SCH ×2 (09:02→21:05)
[2018-05-02] MEDS: Ferrous Sulfate 325 MG Tablet PO SCH ×2 (11:18→16:31)
--- NOTE | 2018-05-02 11:45 | P.PNGI ---
Subjective Interval history: Awake resting in the bed requesting bedside commode. Feels the need for BM this a.m. now that lactulose has been restarted. Current IV fluid hydration at 125 cc an hour. No obvious nausea or vomiting but does note decreased appetite and right mid and upper quadrant pain, pain scale 5 out of 10. <Cynthia Garcia - Last Filed: 05/02/18 11:38> Interval history: Urology pugh in progress. Monitor labs. <Pema Lyn - Last Filed: 05/02/18 15:39> Physical Exam Vital signs: Vital Signs 05/01/18 12:00 05/01/18 16:00 05/01/18 20:00 Temperature 97.1 F L 98.6 F 98.3 F Pulse Rate 91 H 80 72 Respiratory Rate 19 19 17 Blood Pressure 132/67 107/59 L 101/58 L Pulse Oximetry 96 98 99 05/02/18 00:00 05/02/18 08:00 Temperature 98.1 F 98.0 F Pulse Rate 69 70 Respiratory Rate 17 17 Blood Pressure 93/54 L 97/53 L Pulse Oximetry 99 100 Intake & Output 05/01/18 05/02/18 05/02/18 18:59 06:59 18:59 Intake Total 2760 / 2760 1580 / 1580 1050 / 1050 Output Total 800 / 800 450 / 450 Balance 1959 / 1959 1130 / 1130 1050 / 1050 Weight 77 kg Intake: IV 1800 / 1800 1100 / 1100 1050 / 1050 NS Inj 1,000 ML @ 125 mls/hr IV 1700 / 1700 1000 / 1000 1000 / 1000 .CONT .Q8H NIRAJ Rx#:[id number] Zosyn 3.375 GM Premix 50 ML @ 100 / 100 100 / 100 50 / 50 100 mls/hr IV.SIG Q6H NIRAJ Rx#: [id number] Oral 960 / 960 480 / 480 Output: Urine 800 / 800 450 / 450 Other: # Voids 6 Date of Last Bowel Movement 04/29/18 # Bowel Movements 1 <Cynthia Garcia - Last Filed: 05/02/18 11:38> Vital signs: Vital Signs 05/01/18 16:00 05/01/18 20:00 05/02/18 00:00 Temperature 98.6 F 98.3 F 98.1 F Pulse Rate 80 72 69 Respiratory Rate 19 17 17 Blood Pressure 107/59 L 101/58 L 93/54 L Pulse Oximetry 98 99 99 05/02/18 08:00 05/02/18 12:00 Temperature 98.0 F 98.4 F Pulse Rate 70 74 Respiratory Rate 17 17 Blood Pressure 97/53 L 103/51 L Pulse Oximetry 100 100 Intake & Output 05/01/18 05/02/18 05/02/18 18:59 06:59 18:59 Intake Total 2760 / 2760 1580 / 1580 2150 / 2150 Output Total 800 / 800 450 / 450 Balance 1960 / 1960 1130 / 1130 2150 / 2150 Weight 77 kg Intake: IV 1800 / 1800 1100 / 1100 2150 / 2150 NS Inj 1,000 ML @ 125 mls/hr IV 1700 / 1700 1000 / 1000 2000 / 2000 .CONT .Q8H NIRAJ Rx#:[id number] Diflucan 100 mg Premix Bag 50 50 / 50 ML @ 50 mls/hr IV.SIG Q24H NIRAJ Rx#:[id number] Zosyn 3.375 GM Premix 50 ML @ 100 / 100 100 / 100 100 / 100 100 mls/hr IV.SIG Q6H NIRAJ Rx#: [id number] Oral 960 / 960 480 / 480 Output: Urine 800 / 800 450 / 450 Other: # Voids 6 Date of Last Bowel Movement 04/29/18 # Bowel Movements 1 <Pema Lyn - Last Filed: 05/02/18 15:39> Results - Labs CBC & Chem 7: 05/01/18 08:00 05/01/18 08:00 Laboratory Results - last 24 hr 05/01/18 08:00 Hepatitis A IgM Ab Nonreactive Hep Bs Antigen Reactive H Hep B Core IgM Ab Reactive H Hep C IgG Ab Reactive H Microbiology 04/30/18 11:05 Random Urine Urine Culture - Preliminary Yeast - ID to follow <Cynthia Garcia - Last Filed: 05/02/18 11:38> - Labs CBC & Chem 7: 05/01/18 08:00 05/01/18 08:00 Microbiology 05/02/18 10:53 Stool Stool Occult Blood (SHARI) - Final Hemoccult negative 04/30/18 11:05 Random Urine Urine Culture - Preliminary Yeast - ID to follow <Pema Lyn - Last Filed: 05/02/18 15:39> Assessment and Plan - Plan Cirrhosis with history of Hepatitis C S/P treatment with [facility] and states recent diagnosis of Hepatitis B, was prescribed Tenofovir which is does not appear he is compliant with. Patient was previously being worked up by [facility] in [place] for liver transplant in 2016, however due to social issues and lack of support was not a candidate for liver transplant. Pt has most recently been in [place] where he states he was r ecently hospitalized, is unable to provide any details regarding hospitalization. Pt denies previous need for paracentesis. Last EGD and colonoscopy in November 2016, portal hypertensive gastropathy noted on EGD otherwise both exams were normal. Denies ETOH, quit five years ago but states he was never a heavy drinker. Quit smoking 2 weeks ago. Reports recent marijuana use. Pt is currently homeless. - Pancytopenia- Hematology following - Coagulopathy- INR 1.8 - Hypoalbuminemia- albumin 1.7 05/02 patient is awake borderline frail. States constipation for approximately 3 days, no nausea no vomiting. Patient requested an bedside commode placed at his bedside for his safety and convenience. Labs show anemia with hemoglobin initially 10.1 now 8.5 but no obvious bleeding regarding hematemesis or rectal bleeding. Gradual decrease in LFTs noted, WBC count 2.7. History of hepatitis C and recent diagnosis of hepatitis B. patient states he just started taking lactulose again and feels urge to defecate this a.m. continue IV fluids at 125 cc an hour encourage patient for hydration. Notes no nausea vomiting but decreased appetite. Abdominal pain more right mid and upper quadrant, also has urology workup in process. Ammonia level 66. Further liver workup labs pending. Plan: Monitor labs including hemoglobin and any acute changes and LFTs. Avoid hepatotoxins Medical management with spironolactone, Lasix, lactulose PPI Bowel regimen as needed Supportive care Patient was seen per myself and Dr. Lyn, note was written on his behalf <Cynthia Garcia - Last Filed: 05/02/18 11:38>
--- NOTE | 2018-05-02 12:52 | P.PN ---
Subjective Interval history: In bed. Says he has abd pain at the right side, fairly controlled by meds. No fever or chills. No n/v/d/c. Physical Exam Vital signs: Vital Signs 05/01/18 16:00 05/01/18 20:00 05/02/18 00:00 Temperature 98.6 F 98.3 F 98.1 F Pulse Rate 80 72 69 Respiratory Rate 19 17 17 Blood Pressure 107/59 L 101/58 L 93/54 L Pulse Oximetry 98 99 99 05/02/18 08:00 05/02/18 12:00 Temperature 98.0 F 98.4 F Pulse Rate 70 74 Respiratory Rate 17 17 Blood Pressure 97/53 L 103/51 L Pulse Oximetry 100 100 Intake & Output 05/01/18 05/02/18 05/02/18 18:59 06:59 18:59 Intake Total 2760 / 2760 1580 / 1580 1050 / 1050 Output Total 800 / 800 450 / 450 Balance 1960 / 1960 1130 / 1130 1050 / 1050 Weight 77 kg Intake: IV 1800 / 1800 1100 / 1100 1050 / 1050 NS Inj 1,000 ML @ 125 mls/hr IV 1700 / 1700 1000 / 1000 1000 / 1000 .CONT .Q8H NIRAJ Rx#:[id number] Zosyn 3.375 GM Premix 50 ML @ 100 / 100 100 / 100 50 / 50 100 mls/hr IV.SIG Q6H NIRAJ Rx#: [id number] Oral 960 / 960 480 / 480 Output: Urine 800 / 800 450 / 450 Other: # Voids 6 Date of Last Bowel Movement 04/29/18 # Bowel Movements 1 Narrative: GENERAL: Pleasant AAcare, in bed appears in some distress due to pain . CARDIOVASCULAR: Regular rate and rhythm. RESPIRATORY: No accessory muscle use. Clear to auscultation. Breath sounds equal bilaterally. GASTROINTESTINAL: Abdomen soft, diffuse tenderness, nondistended. No CVA tenderness, MUSCULOSKELETAL: Extremities without clubbing, cyanosis, or edema. No obvious deformities. NEUROLOGICAL: Awake and alert. No obvious cranial nerve deficits. Motor grossly within normal limits. Five out of 5 muscle strength in the arms and legs. Normal speech. PSYCHIATRIC: Appropriate mood and affect; insight and judgment normal. Results - Labs CBC & Chem 7: 05/01/18 08:00 05/01/18 08:00 Microbiology 04/30/18 11:05 Random Urine Urine Culture - Preliminary Yeast - ID to follow Assessment and Plan - Plan 58 y.o M with Right Staghorn calculi UTI complicate with renal stones Urology consulted for Rt >3cm staghorn calculi on CT - He needs to be stable enough for his stone procedure - No acute intervention needed per Dr Mckeon urology - He will need a PCNL in the future for treatment of his stone as an outpt - Pt will need to f/u as an outpt with [facility] after d/c - Pain meds per pain scale - On zosyn IV abx. Monitor U cx - Urine cultures with Yeast , I&D pending. Start fluconazole IV RUQ Abdominal pain. H/o hep c. GI following. Abd pain related to kidney stones likely. Chronic medical problems. Hep C and liver cirrhosis appears stable at this time. Patient says he has been treated for Hep c Discussed with the patient, nurse.
[2018-05-03] MEDS: Morphine Sulfate Inj 2 MG/ML Vial IV.PUSH PRN ×5 (02:28→22:20)
[2018-05-03] MEDS: Piperacil/Tazo 3.375 GM Premix 50 ML IV.SIG SCH ×4 (02:28→20:51)
[2018-05-03] MEDS: Sod Chloride 0.9% Inj 1,000 ML IV.CONT SCH ×5 (05:20→23:04)
[2018-05-03] MEDS: Sodium Chloride 0.9% 2 ML Flush BID IV.FLUSH SCH ×2 (09:57→20:52)
[2018-05-03] MEDS: Furosemide 20 MG Tablet PO SCH (09:57)
[2018-05-03] MEDS: Sodium Chloride 0.9% 2 ML Flush PRN IV.FLUSH ×2 (11:39→15:23)
[2018-05-03] MEDS: Ferrous Sulfate 325 MG Tablet PO SCH ×2 (11:43→16:54)
--- NOTE | 2018-05-03 12:06 | P.PNGI ---
Subjective Interval history: Resting in the bed states he is drinking liquids without any issues no nausea no vomiting. Upper mid and right upper quadrant abdominal pain probable non-GI <Cynthia Garcia - Last Filed: 05/03/18 12:07> Physical Exam Vital signs: Vital Signs 05/02/18 16:00 05/02/18 20:00 05/03/18 00:00 Temperature 98.2 F 98 F 98.2 F Pulse Rate 88 82 85 Respiratory Rate 17 19 17 Blood Pressure 96/51 L 99/55 L 102/54 L Pulse Oximetry 98 99 99 05/03/18 07:37 05/03/18 08:00 Temperature 98.2 F Pulse Rate 71 Respiratory Rate 17 17 Blood Pressure 92/55 L Pulse Oximetry 99 Intake & Output 05/02/18 05/03/18 05/03/18 18:59 06:59 18:59 Intake Total 2954 / 2954 2100 / 2100 50 / 50 Output Total 1075 / 1075 800 / 800 Balance 1879 / 1879 1300 / 1300 50 / 50 Weight 77 kg Intake: IV 2150 / 2150 2100 / 2100 50 / 50 NS Inj 1,000 ML @ 125 mls/hr IV 1999 / 1999 .CONT .Q8H NIRAJ Rx#:[id number] Diflucan 100 mg Premix Bag 50 50 / 50 ML @ 50 mls/hr IV.SIG Q24H NIRAJ Rx#:[id number] Zosyn 3.375 GM Premix 50 ML @ 100 / 100 100 / 100 50 / 50 100 mls/hr IV.SIG Q6H NIRAJ Rx#: [id number] Oral 804 / 804 Output: Urine 1075 / 1075 800 / 800 Other: Date of Last Bowel Movement 04/29/18 05/02/18 # Bowel Movements 1 - Constitutional no acute distress, obese, cachectic, disheveled - Routine HEENT Exam Head: Present: normocephalic ENT: Present: mucous membranes moist - Routine Respiratory Exam Present: accessory muscle use (No obvious shortness of breath) - Routine Cardiovascular Exam Present: S1, S2, murmur - Routine Abdominal Exam Present: soft, normoactive bowel sounds (Round,), tenderness (Right upper quadrant and mid abdomen, no obvious distention) <Cynthia Garcia - Last Filed: 05/03/18 12:07> Vital signs: Vital Signs 05/02/18 16:00 05/02/18 20:00 05/03/18 00:00 Temperature 98.2 F 98 F 98.2 F Pulse Rate 88 82 85 Respiratory Rate 17 19 17 Blood Pressure 96/51 L 99/55 L 102/54 L Pulse Oximetry 98 99 99 05/03/18 07:37 05/03/18 08:00 05/03/18 11:40 Temperature 98.2 F Pulse Rate 71 Respiratory Rate 17 17 17 Blood Pressure 92/55 L Pulse Oximetry 99 05/03/18 12:00 Temperature 98.0 F Pulse Rate 72 Respiratory Rate 17 Blood Pressure 100/55 L Pulse Oximetry 99 Intake & Output 05/02/18 05/03/18 05/03/18 18:59 06:59 18:59 Intake Total 2954 / 2954 2100 / 2100 1100 / 1100 Output Total 1075 / 1075 800 / 800 Balance 1879 / 1879 1300 / 1300 1100 / 1100 Weight 77 kg Intake: IV 2150 / 2150 2100 / 2100 1100 / 1100 NS Inj 1,000 ML @ 125 mls/hr IV 2000 / 2000 2000 / 2000 1000 / 1000 .CONT .Q8H NIRAJ Rx#:[id number] Diflucan 100 mg Premix Bag 50 50 / 50 ML @ 50 mls/hr IV.SIG Q24H NIRAJ Rx#:[id number] Zosyn 3.375 GM Premix 50 ML @ 100 / 100 100 / 100 100 / 100 100 mls/hr IV.SIG Q6H NIRAJ Rx#: [id number] Oral 804 / 804 Output: Urine 1075 / 1075 800 / 800 Other: Date of Last Bowel Movement 04/29/18 05/02/18 # Bowel Movements 1 <Pema Lyn - Last Filed: 05/03/18 14:53> Results - Labs CBC & Chem 7: 05/01/18 08:00 05/01/18 08:00 Microbiology 04/30/18 11:05 Random Urine Urine Culture - Final Shante glabrata 05/02/18 10:53 Stool Stool Occult Blood (SHARI) - Final Hemoccult negative <Cynthia Garcia - Last Filed: 05/03/18 12:07> - Labs CBC & Chem 7: 05/01/18 08:00 05/01/18 08:00 Microbiology 04/30/18 11:05 Random Urine Urine Culture - Final Shante glabrata 05/02/18 10:53 Stool Stool Occult Blood (SHARI) - Final Hemoccult negative <Pema Lyn - Last Filed: 05/03/18 14:53> Assessment and Plan - Plan Cirrhosis with history of Hepatitis C S/P treatment with [facility] and states recent diagnosis of Hepatitis B, was prescribed Tenofovir which is does not appear he is compliant with. Patient was previously being worked up by [facility] in [place] for liver transplant in 2016, however due to social issues and lack of support was not a candidate for liver transplant. Pt has most recently been in [place] where he states he was r ecently hospitalized, is unable to provide any details regarding hospitalization. Pt denies previous need for paracentesis. Last EGD and colonoscopy in November 2016, portal hypertensive gastropathy noted on EGD otherwise both exams were normal. Denies ETOH, quit five years ago but states he was never a heavy drinker. Quit smoking 2 weeks ago. Reports recent marijuana use. Pt is currently homeless. - Pancytopenia- Hematology following - Coagulopathy- INR 1.8 - Hypoalbuminemia- albumin 1.7 05/02 patient is awake borderline frail. States constipation for approximately 3 days, no nausea no vomiting. Patient requested an bedside commode placed at his bedside for his safety and convenience. Labs show anemia with hemoglobin initially 10.1 now 8.5 but no obvious bleeding regarding hematemesis or rectal bleeding. Gradual decrease in LFTs noted, WBC count 2.7. History of hepatitis C and recent diagnosis of hepatitis B. patient states he just started taking lactulose again and feels urge to defecate this a.m. continue IV fluids at 125 cc an hour encourage patient for hydration. Notes no nausea vomiting but decreased appetite. Abdominal pain more right mid and upper quadrant, also has urology workup in process. Ammonia level 66. Further liver workup labs pending. 05/03/2018 patient is resting in the bed still complains of some upper abdominal pain that radiates around to the right flank. Last hemoglobin was 8.5 on the and last INR was 1.8. Patient states bowel movement yesterday no obvious blood and no fever. Patient does have urinary stones and is been followed per urology which could represent his current abdominal pain. Currently on Zosyn. GI has been monitoring patient's known cirrhosis history of hepatitis C and hepatitis B. patient's last LFTs were trending down will recheck in the morning. Plan: Diet as tolerated per attending Check CMP in a.m. Avoid hepatotoxins spironolactone, Lasix, lactulose PPI Bowel regimen as needed Supportive care Patient was seen per myself and Dr. Lyn, note was written on his behalf <Cynthia Garcia - Last Filed: 05/03/18 12:07> - Plan Seen and examined with FINISH REMOVER, feeling better. Pain improving. The exam, history, and the medical decision-making described in the above note were completed with the assistance of the mid-level provider. I reviewed and agree with the findings presented. I attest that I had a [id number] encounter with the patient on the same day, and personally performed and documented my assessment and findings in the medical record. <Pema Lyn - Last Filed: 05/03/18 14:53>
--- NOTE | 2018-05-03 14:50 | P.PN ---
Subjective Interval history: In bed appears tired. Abdominal pain in his right side controlled by meds. No signs of bleeding. No fever or chills Feels tired. Physical Exam Vital signs: Vital Signs 05/02/18 16:00 05/02/18 20:00 05/03/18 00:00 Temperature 98.2 F 98 F 98.2 F Pulse Rate 88 82 85 Respiratory Rate 17 19 17 Blood Pressure 96/51 L 99/55 L 102/54 L Pulse Oximetry 98 99 99 05/03/18 07:37 05/03/18 08:00 05/03/18 11:40 Temperature 98.2 F Pulse Rate 71 Respiratory Rate 17 17 17 Blood Pressure 92/55 L Pulse Oximetry 99 05/03/18 12:00 Temperature 98.0 F Pulse Rate 72 Respiratory Rate 17 Blood Pressure 100/55 L Pulse Oximetry 99 Intake & Output 05/02/18 05/03/18 05/03/18 18:59 06:59 18:59 Intake Total 2954 / 2954 2100 / 2100 1100 / 1100 Output Total 1075 / 1075 800 / 800 Balance 1879 / 1879 1300 / 1300 1100 / 1100 Weight 77 kg Intake: IV 2150 / 2150 2100 / 2100 1100 / 1100 NS Inj 1,000 ML @ 125 mls/hr IV 2000 / 2000 2000 / 2000 1000 / 1000 .CONT .Q8H NIRAJ Rx#:[id number] Diflucan 100 mg Premix Bag 50 50 / 50 ML @ 50 mls/hr IV.SIG Q24H NIRAJ Rx#:[id number] Zosyn 3.375 GM Premix 50 ML @ 100 / 100 100 / 100 100 / 100 100 mls/hr IV.SIG Q6H NIRAJ Rx#: [id number] Oral 804 / 804 Output: Urine 1075 / 1075 800 / 800 Other: Date of Last Bowel Movement 04/29/18 05/02/18 # Bowel Movements 1 Narrative: GENERAL: Pleasant AAmale, in bed appears in some distress due to pain . CARDIOVASCULAR: Regular rate and rhythm. RESPIRATORY: No accessory muscle use. Clear to auscultation. Breath sounds equal bilaterally. GASTROINTESTINAL: Abdomen soft, diffuse tenderness, nondistended. No CVA tenderness, MUSCULOSKELETAL: Extremities without clubbing, cyanosis, or edema. No obvious deformities. NEUROLOGICAL: Awake and alert. No obvious cranial nerve deficits. Motor grossly within normal limits. Five out of 5 muscle strength in the arms and legs. Normal speech. PSYCHIATRIC: Appropriate mood and affect; insight and judgment normal. Results - Labs CBC & Chem 7: 05/01/18 08:00 05/01/18 08:00 Microbiology 04/30/18 11:05 Random Urine Urine Culture - Final Shante glabrata 05/02/18 10:53 Stool Stool Occult Blood (SHARI) - Final Hemoccult negative Assessment and Plan - Plan 58 y.o M with Right Staghorn calculi UTI complicate with renal stones Urology consulted for Rt >3cm staghorn calculi on CT - He needs to be stable enough for his stone procedure - No acute intervention needed per Dr Mckeon urology - He will need a PCNL in the future for treatment of his stone as an outpt - Pt will need to f/u as an outpt with [facility] after d/c - Pain meds per pain scale - On zosyn IV abx. Monitor U cx - Urine cultures with Yeast , I&D pending. Start fluconazole IV Pancytopenia: monitor for signs of bleeding. Hem/onc consulted for eval. RUQ Abdominal pain. H/o hep c. GI following. Abd pain related to kidney stones likely. To follo w Chronic medical problems. Hep C and liver cirrhosis appears stable at this time. Patient says he has been treated for Hep c Discussed with the patient, nurse.
[2018-05-04] MEDS: Piperacil/Tazo 3.375 GM Premix 50 ML IV.SIG SCH ×2 (02:56→07:27)
[2018-05-04] MEDS: Morphine Sulfate Inj 2 MG/ML Vial IV.PUSH PRN ×4 (05:28→20:05)
[2018-05-04] MEDS: Sod Chloride 0.9% Inj 1,000 ML IV.CONT SCH ×2 (05:32→13:33)
[2018-05-04 06:17] LABS: Eos # (Auto) 0.1 th/mm3 (0.0-0.4); Eos % (Auto) 3.4 % (0.0-4.0); Hematocrit 22.1 % (39.0-51.0); Hemoglobin 7.5 gm/dL (13.0-17.0); Lymph # (Auto) 0.4 th/mm3 (1.0-4.8); Lymph % (Auto) 21.5 % (9.0-44.0); Mean Corpuscular HGB Conc 34.1 % (32.0-36.0); Mean Corpuscular Hemoglobin 36.7 pg (27.0-34.0); Mean Corpuscular Volume 107.6 fL (80.0-100.0); Mean Platelet Volume 8.3 fL (7.0-11.0); Mono # (Auto) 0.2 th/mm3 (0.0-0.9); Mono % (Auto) 9.4 % (0.0-8.0); Neut # (Auto) 1.1 th/mm3 (1.8-7.7); Neut % (Auto) 64.7 % (16.0-70.0); Platelet Count 29 th/mm3 (150-450); Red Blood Count 2.05 mil/mm3 (4.50-5.90); Red Cell Distribution Width 18.1 % (11.6-17.2); White Blood Count 1.7 th/mm3 (4.0-11.0)
[2018-05-04 06:46] LABS: Alanine Aminotransferase 111 U/L (12-78); Albumin 1.5 g/dL (3.4-5.0); Alkaline Phosphatase 89 U/L (45-117); Anion Gap 7 meq/L (5-15); Aspartate Aminotransferase 204 U/L (15-37); Blood Urea Nitrogen 5 mg/dL (7-18); Calcium 7.2 mg/dL (8.5-10.1); Carbon Dioxide 28.5 meq/L (21.0-32.0); Chloride 108 meq/L (98-107); Glomerular Filtration Rate Greater Than 89 mL/min (>89); Glucose,Random 125 mg/dL (74-106); Potassium 3.3 meq/L (3.5-5.1); Sodium 143 meq/L (136-145); Total Protein 5.4 g/dL (6.4-8.2)
[2018-05-04 07:11] LABS: Eosinophils 4 % (0-4); Lymphocytes 12 % (9-44); Monocytes 3 % (0-8)
[2018-05-04 07:12] LABS: Ovalocytes 1+; Platelet Morphology Normal (Normal); Tear Drop Cells 1+
[2018-05-04] MEDS: Sodium Chloride 0.9% 2 ML Flush BID IV.FLUSH SCH ×2 (08:48→20:06)
[2018-05-04] MEDS: Furosemide 20 MG Tablet PO SCH (08:48)
--- NOTE | 2018-05-04 09:34 | P.PN ---
Subjective Interval history: Pt seen and examined for f/u of renal calculus, Shante UTI, and liver cirrhosis. Complains of stable RLQ pain with no significant improvement from prior days. Tolerating PO. Denies N/V, chest pain, or SOB. Endorses some dysuria at the end of urination. States his urine is still very dark. Denies diarrhea. Complains of dry eyes and irritation. No blurry vision, erythema, or discharge from the eyes. Physical Exam Vital signs: Vital Signs 05/03/18 11:40 05/03/18 12:00 05/03/18 15:25 Temperature 98.0 F Pulse Rate 72 Respiratory Rate 17 17 17 Blood Pressure 100/55 L Pulse Oximetry 99 05/03/18 16:00 05/03/18 20:00 05/04/18 00:00 Temperature 98 F 97.2 F L 98.0 F Pulse Rate 65 83 75 Respiratory Rate 17 18 17 Blood Pressure 102/52 L 102/50 L 89/60 L Pulse Oximetry 97 98 97 05/04/18 00:20 05/04/18 05:36 05/04/18 08:00 Temperature 98.1 F Pulse Rate 65 Respiratory Rate 18 18 Blood Pressure 92/60 L 97/53 L 96/52 L Pulse Oximetry 99 Intake & Output 05/03/18 05/04/18 05/04/18 18:59 06:59 18:59 Intake Total 2536 / 2536 1880 / 1880 50 / 50 Output Total 800 / 800 1200 / 1200 Balance 1736 / 1736 680 / 680 50 / 50 Weight 77 kg Intake: IV 1150 / 1150 1100 / 1100 50 / 50 NS Inj 1,000 ML @ 125 mls/hr IV 1000 / 1000 1000 / 1000 .CONT .Q8H NIRAJ Rx#:[id number] Diflucan 100 mg Premix Bag 50 50 / 50 ML @ 50 mls/hr IV.SIG Q24H NIRAJ Rx#:[id number] Zosyn 3.375 GM Premix 50 ML @ 100 / 100 100 / 100 50 / 50 100 mls/hr IV.SIG Q6H NIRAJ Rx#: [id number] Oral 1386 / 1386 780 / 780 Output: Urine 800 / 800 1200 / 1200 Other: Date of Last Bowel Movement 05/02/18 05/03/18 Narrative: GENERAL: Chronically-ill appearing male resting in bed in [facility]. SKIN: Warm and dry. Jaundice. HEENT: AT/NC. Pupils equal and round. +scleral icterus. No conjunctival injection or drainage. HEART: RRR w/ 3/6 MATTY. LUNGS: CTAB without wheezes or crackles. ABDOMEN: +BS, soft, diffuse TTP especially over EXTREMITIES: Brawny LE skin discoloration with trace edema. 2+ pedal pulses. LUE with some bruising. NEURO: Awake and alert. Results - Labs CBC & Chem 7: 05/04/18 06:01 05/04/18 06:01 Laboratory Results - last 24 hr 05/04/18 05/04/18 05/04/18 06:01 06:01 06:01 WBC 1.7 L RBC 2.05 L Hgb 7.5 L Hct 22.1 L MCV 107.6 H MCH 36.7 H MCHC 34.1 RDW 18.1 H Plt Count 29 L MPV 8.3 Prelim Diff (Auto) Slide review pending Neut % (Auto) 64.7 Lymph % (Auto) 21.5 [place] % (Auto) 9.4 H Eos % (Auto) 3.4 Baso % (Auto) 1.0 Neut # (Auto) 1.1 L Lymph # (Auto) 0.4 L [place] # (Auto) 0.2 Eos # (Auto) 0.1 Baso # (Auto) 0.0 WBC Differential Manual diff final Seg Neuts % (Manual) 78 H Band Neuts % (Manual) 3 Lymphocytes % (Manual) 12 Monocytes % (Manual) 3 Eosinophils % (Manual) 4 Abs Neuts (Manual) 1.4 L Differential Comment . Platelet Estimate Low L Platelet Morphology Normal Tear Drop Cells 1+ H Ovalocytes 1+ H Sodium 143 Potassium 3.3 L Chloride 108 H Carbon Dioxide 28.5 Anion Gap 7 BUN 5 L Creatinine 0.63 Estimated GFR Greater than 89 Random Glucose 125 H Calcium 7.2 L* Cancelled Prot Corrected Calcium 8.1 L Cancelled Total Bilirubin 5.3 H AST 204 H ALT 111 H Alkaline Phosphatase 89 Total Protein 5.4 L D Cancelled Albumin 1.5 L Microbiology 04/30/18 11:05 Random Urine Urine Culture - Final Shante glabrata Assessment and Plan - Plan 58 YOWM with history of Hep B, Hep C, and liver cirrhosis admitted on 04/29 after being transferred from [facility] for staghorn renal calculus complicated by UTI. 1. Nephrolithiasis with UTI CT scan done at [facility] showing a 3.5 cm staghorn calculus in the right kidney with associated UTI. Patient was transferred to [place] for on- call urology Urology consulted. No acute intervention needed but patient will need a PCNL in the future as an outpatient Reviewed U/A from [place] on 04/28 which showed + nitrite, + leukocytes, + bacteria and yeast, and final urine culture resulted on 05/01 showed no growth Urine culture from 04/30 done at [place] growing Shante glabrata Stop Zosyn and change IV Diflucan to PO with plan to treat for a total of 2 weeks 2. Pancytopenia Counts are continue to decrease: WBC down to 1.7, hemoglobin down to 7.5, platelets down to 29 HIV negative Heme/onc following, concern for possible DIC given prolonged PT and APTT, low fibrinogen, and elevated D-dimer Ultrasound of the spleen showed splenomegaly with prominent central splenic veins that may reflect portal hypertension given history of cirrhosis Remains hemodynamically stable (BPs have been low entire admission, patient not tachycardic, diaphoretic, short of breath, etc.). Hold off on transfusion for now but continue to monitor CBC No active bleeding though patient having some bruising. Monitor for active bleeding or hemodynamic instability 3. Liver cirrhosis/HCV/HBV With associated elevated LFTs, bilirubin, coagulopathy, hyperammonemia, and hypoalbuminemia History of heavy alcohol abuse but quit 5 years ago S/p treatment with Harvoni and recently tenofovir was prescribed with diagnosis of hepatitis B the patient was apparently not compliant Previously worked up in [facility] for liver transplant 2016 but unfortunately was not a candidate due to social issues and lack of support Last EGD and colonoscopy in November 2016, portal hypertensive gastropathy noted on EGD otherwise both exams were normal GI following HBV DNA and HCV RNA pending Continue spironolactone, Lasix, lactulose Continue to monitor LFTs and avoid hepatotoxic agents 4. Hypokalemia Start KCl PO 20 mEq daily 5. 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 Heme/ONC following. Pt is stable but condition is serious.
[2018-05-04] MEDS: Sodium Chloride 0.9% 2 ML Flush PRN IV.FLUSH (10:34)
--- NOTE | 2018-05-04 12:27 | P.PNONC ---
Subjective Interval history: Afebrile. Patient lying in bed, in no acute distress. Patient has no complaints at this time. He denies any bleeding, however does have bruising to his left upper extremity. Patient reports right upper quadrant abdominal pain is currently resolved with pain medication. Bilateral lower extremity edema has improved. Urinating frequently, dark urine noted in urinal. Objective Vital Signs/Intake & Output: Vital Signs 05/03/18 12:00 05/03/18 15:25 05/03/18 16:00 Temperature 98.0 F 98 F Pulse Rate 72 65 Respiratory Rate 17 17 17 Blood Pressure 100/55 L 102/52 L Pulse Oximetry 99 97 05/03/18 20:00 05/04/18 00:00 05/04/18 00:20 Temperature 97.2 F L 98.0 F Pulse Rate 83 75 Respiratory Rate 18 17 Blood Pressure 102/50 L 89/60 L 92/60 L Pulse Oximetry 98 97 05/04/18 05:36 05/04/18 08:00 Temperature 98.1 F Pulse Rate 65 Respiratory Rate 18 18 Blood Pressure 97/53 L 96/52 L Pulse Oximetry 99 Intake & Output 05/03/18 05/04/18 05/04/18 18:59 06:59 18:59 Intake Total 2536 / 2536 1880 / 1880 50 / 50 Output Total 800 / 800 1200 / 1200 Balance 1736 / 1736 680 / 680 50 / 50 Weight 77 kg Intake: IV 1150 / 1150 1100 / 1100 50 / 50 NS Inj 1,000 ML @ 125 mls/hr IV 1000 / 1000 1000 / 1000 .CONT .Q8H NIRAJ Rx#:[id number] Diflucan 100 mg Premix Bag 50 50 / 50 ML @ 50 mls/hr IV.SIG Q24H NIRAJ Rx#:[id number] Zosyn 3.375 GM Premix 50 ML @ 100 / 100 100 / 100 50 / 50 100 mls/hr IV.SIG Q6H NIRAJ Rx#: [id number] Oral 1386 / 1386 780 / 780 Output: Urine 800 / 800 1200 / 1200 Other: Date of Last Bowel Movement 05/02/18 05/03/18 05/03/18 Result Diagrams: 05/05/18 06:45 05/05/18 06:45 Laboratory Results: Laboratory Results - last 24 hr 05/04/18 05/04/1818 06:01 06:01 06:01 WBC 1.7 L RBC 2.05 L Hgb 7.5 L Hct 22.1 L MCV 107.6 H MCH 36.7 H MCHC 34.1 RDW 18.1 H Plt Count 29 L MPV 8.3 Prelim Diff (Auto) Slide review pending Neut % (Auto) 64.7 Lymph % (Auto) 21.5 [place] % (Auto) 9.4 H Eos % (Auto) 3.4 Baso % (Auto) 1.0 Neut # (Auto) 1.1 L Lymph # (Auto) 0.4 L [place] # (Auto) 0.2 Eos # (Auto) 0.1 Baso # (Auto) 0.0 WBC Differential Manual diff final Seg Neuts % (Manual) 78 H Band Neuts % (Manual) 3 Lymphocytes % (Manual) 12 Monocytes % (Manual) 3 Eosinophils % (Manual) 4 Abs Neuts (Manual) 1.4 L Differential Comment . Platelet Estimate Low L Platelet Morphology Normal Tear Drop Cells 1+ H Ovalocytes 1+ H Sodium 143 Potassium 3.3 L Chloride 108 H Carbon Dioxide 28.5 Anion Gap 7 BUN 5 L Creatinine 0.63 Estimated GFR Greater than 89 Random Glucose 125 H Calcium 7.2 L* Cancelled Prot Corrected Calcium 8.1 L Cancelled Total Bilirubin 5.3 H AST 204 H ALT 111 H Alkaline Phosphatase 89 Total Protein 5.4 L D Cancelled Albumin 1.5 L Culture Results: Microbiology 04/30/18 11:05 Urine Culture - Final Random Urine Shante glabrata 05/02/18 10:53 Stool Occult Blood (SHARI) - Final Stool Hemoccult negative Medications: Active Medications Generic Name Dose Route Start Last Admin Trade Name Freq PRN Reason Stop Dose Admin Ferrous Sulfate 325 mg 04/30/18 17:00 05/03/18 16:54 Ferosul PO 325 mg BID@1200,1700 NIRAJ Administration Furosemide 20 mg 05/02/18 09:00 05/04/18 08:48 Lasix PO 20 mg DAILY NIRAJ Administration Sodium Chloride 1,000 mls @ 125 mls/hr 04/29/18 06:30 05/04/18 05:32 Ns Inj IV.CONT 125 mls/hr .Q8H NIRAJ Administration Lactulose 30 ml 05/01/18 21:00 10/01/18 08:48 Lactulose Liq PO 30 ml BID NIRAJ Administration Morphine Sulfate 2 mg 04/29/18 09:36 05/04/18 10:34 Morphine Inj IV.PUSH 2 mg Q4H PRN Administration PAIN 2-10 IF CANT TAKE PO Pantoprazole Sodium 40 mg 05/02/18 09:00 05/04/18 08:48 Protonix PO 40 mg DAILY NIRAJ Administration Potassium Chloride 20 meq 05/04/18 09:00 05/04/18 08:48 K-Dur PO 20 meq DAILY NIRAJ Administration Sodium Chloride 2 ml 04/29/18 09:00 05/04/18 08:48 Ns Flush IV.FLUSH Not Given BID NIRAJ Sodium Chloride 2 ml 04/29/18 06:49 05/04/18 10:34 Ns Flush IV.FLUSH 2 ml PRN PRN Administration FLUSH AFTER USING IV ACCESS Objective Remarks: GENERAL: Chronically ill-appearing male patient, in no acute distress. SKIN: + Jaundice, warm and dry. Ecchymosis to left shoulder and arm. HEAD: Normocephalic. EYES: + scleral icterus. No injection or drainage. NECK: Supple, trachea midline. CARDIOVASCULAR: Regular rate and rhythm 3/6 systolic murmur aortic listening area. RESPIRATORY: Breath sounds equal bilaterally. RML with expiratory rub. No accessory muscle use. GASTROINTESTINAL: Abdomen soft, non-tender, nondistended. +BS. EXTREMITIES: No cyanosis, or edema. Chronic discoloration to bilateral lower extremities. MUSCULOSKELETAL: Adequate muscle tone. NEUROLOGICAL: No obvious focal deficit. Awake, alert, and oriented x3. PSYCHIATRIC: Appropriate mood and affect; insight and judgment normal. Assessment/Plan - Plan Mr. Valadez is a pleasant 58-year-old gentleman with a history of hepatitis C and cirrhosis, recently diagnosed with hepatitis B. patient was transferred here from [facility] for urology care. He was diagnosed with a ureteral calculus with obstruction. Hematology was consulted for pancytopenia. Plan: 1. Pancytopenia, counts continue to decrease. No transfusions warranted at this time. Patient appears to have some aspect of acute DIC, prolonged PT and APTT, low fibrinogen at 79 and a high d-dimer at 1.68. Likely contributing to this is his underlying liver disease and splenomegaly. Ultrasound of the spleen showed splenomegaly with the spleen measuring 19 cm in length, prominent central splenic veins which may reflect portal hypertension and possibly splenorenal collaterals in the patient with history of cirrhosis. There are no obvious signs of bleeding at this time. CTA was negative for pulmonary embolism. Will order bilateral venous ultrasound to r/o thrombosis in the pt with thrombocytopenia. 2. Cirrhosis, with hepatitis B and C. Gastroenterology is managing. 3. UTI and staghorn calculus, management per urology and attending. 4. Continue to monitor for bleeding. - Attending Statement Pt seen after [employer]. Agree with assessment re DIC. Will tx platelets and / RBC only if actively bleeding or in need of surgery.
[2018-05-04] MEDS: Carboxymethylcellulose 0.5% Opth Drops 15 ML Bottle EACH EYE PRN (13:31)
[2018-05-04] MEDS: Ferrous Sulfate 325 MG Tablet PO SCH ×2 (13:31→16:05)
--- NOTE | 2018-05-04 14:15 | US ---
EXAM DATE: 05/04/2018 12:00 AM EDT AGE/SEX: 58 years / Male INDICATIONS: Leg swelling. CLINICAL DATA: This is the patient's initial encounter. Patient reports that signs and symptoms have been present for 1 day and indicates a pain score of 8/10. MEDICAL/SURGICAL HISTORY: Hepatitis C. Kidney stones. Liver disease. Cholecystectomy. COMPARISON: No prior exams available for comparison. TECHNIQUE: Venous ultrasound of both lower extremities was performed from the inguinal ligament to t he proximal calf. Real-time, color Doppler and spectral tracing, compression and augmentation techni ques were used. FINDINGS: Right Leg: There is a small echogenic focus within the right popliteal vein consistent with possible minimal residual nonocclusive thrombus. The right iliac, common femoral, superficial femoral, perone al and posterior tibial veins are patent without thrombus. Left Leg: Normal compression of the deep venous system from the inguinal region to the proximal calf . No echogenic clot is seen. Normal response of the venous system to augmentation and respiration. Other: None. CONCLUSION: 1. Small echogenic focus within the right popliteal vein consistent with possible minimal residual n onocclusive thrombus. Electronically signed by: Feliberto Chan MD 05/04/2018 2:13 PM EDT
--- NOTE | 2018-05-04 14:59 | P.PNGI ---
Subjective Interval history: Patient resting comfortably, denies discomfort.Denies nausea or vomiting. States soft BM this am with no noted bleeding. Venous Doppler being done bedside. <GabinoKely - Last Filed: 05/04/18 16:32> Physical Exam Vital signs: Vital Signs 05/03/18 15:25 05/03/18 16:00 05/03/18 20:00 Temperature 98 F 97.2 F L Pulse Rate 65 83 Respiratory Rate 17 17 18 Blood Pressure 102/52 L 102/50 L Pulse Oximetry 97 98 05/04/18 00:00 05/04/18 00:20 05/04/18 05:36 Temperature 98.0 F Pulse Rate 75 Respiratory Rate 17 18 Blood Pressure 89/60 L 92/60 L 97/53 L Pulse Oximetry 97 05/04/18 08:00 05/04/18 12:00 Temperature 98.1 F 97.8 F Pulse Rate 65 68 Respiratory Rate 18 18 Blood Pressure 96/52 L 103/55 L Pulse Oximetry 99 99 Intake & Output 05/03/18 05/04/18 05/04/18 18:59 06:59 18:59 Intake Total 2536 / 2536 1880 / 1880 1050 / 1050 Output Total 800 / 800 1200 / 1200 Balance 1736 / 1736 680 / 680 1050 / 1050 Weight 77 kg Intake: IV 1150 / 1150 1100 / 1100 1050 / 1050 NS Inj 1,000 ML @ 125 mls/hr IV 1000 / 1000 1000 / 1000 1000 / 1000 .CONT .Q8H [facility] Rx#:[id number] Diflucan 100 mg Premix Bag 50 50 / 50 ML @ 50 mls/hr IV.SIG Q24H [facility] Rx#:[id number] Zosyn 3.375 GM Premix 50 ML @ 100 / 100 100 / 100 50 / 50 100 mls/hr IV.SIG Q6H [facility] Rx#: [id number] Oral 1386 / 1386 780 / 780 Output: Urine 800 / 800 1200 / 1200 Other: Date of Last Bowel Movement 05/02/18 05/03/18 05/03/18 - Constitutional no acute distress, thin, cooperative - Routine HEENT Exam Head: Present: normocephalic Eye: Present: conjunctival icterus - Routine Respiratory Exam Present: CTA bilaterally. Absent: accessory muscle use - Routine Cardiovascular Exam Present: RRR - Routine Abdominal Exam Present: soft, normoactive bowel sounds. Absent: distended, guarding, firm - Routine Extremities Exam Present: edema - Routine Skin Exam Present: dry, warm - Routine Neurological Exam Present: alert, oriented X3 - Detailed Neurological Exam: Coma Scale Eye Opening: Spontaneous Verbal Response: Oriented Motor Response: Obey commands [place] Coma Scale Total: 15 - Routine Psychiatric Exam Present: normal affect, cooperative <Kely Lloyd - Last Filed: 05/04/18 16:32> Vital signs: Vital Signs 05/04/18 00:00 05/04/18 00:20 05/04/18 05:36 Temperature 98.0 F Pulse Rate 75 Respiratory Rate 17 18 Blood Pressure 89/60 L 92/60 L 97/53 L Pulse Oximetry 97 05/04/18 08:00 05/04/18 10:36 05/04/18 12:00 Temperature 98.1 F 97.8 F Pulse Rate 65 68 Respiratory Rate 18 17 18 Blood Pressure 96/52 L 103/55 L Pulse Oximetry 99 99 05/04/18 15:30 05/04/18 16:00 Temperature 97.7 F Pulse Rate 67 Respiratory Rate 17 18 Blood Pressure 105/59 L Pulse Oximetry 100 Intake & Output 05/04/18 05/04/18 05/05/18 06:59 18:59 06:59 Intake Total 1880 / 1880 2009 Output Total 1200 / 1200 1000 / 1000 Balance 680 / 680 1010 / 1010 Weight 77 kg Intake: IV 1100 / 1100 1050 / 1050 NS Inj 1,000 ML @ 125 mls/hr IV 1000 / 1000 1000 / 1000 .CONT .Q8H [facility] Rx#:[id number] Zosyn 3.375 GM Premix 50 ML @ 100 / 100 50 / 50 100 mls/hr IV.SIG Q6H [facility] Rx#: [id number] Oral 780 / 780 960 / 960 Output: Urine 1200 / 1200 1000 / 1000 Other: Date of Last Bowel Movement 05/03/18 05/03/18 <Case Castro - Last Filed: 05/04/18 22:16> Results - Labs CBC & Chem 7: 05/04/18 06:01 05/04/18 06:01 Laboratory Results - last 24 hr 05/04/18 05/04/18 05/04/18 06:01 06:01 06:01 WBC 1.7 L RBC 2.05 L Hgb 7.5 L Hct 22.1 L MCV 107.6 H MCH 36.7 H MCHC 34.1 RDW 18.1 H Plt Count 29 L MPV 8.3 Prelim Diff (Auto) Slide review pending Neut % (Auto) 64.7 Lymph % (Auto) 21.5 [place] % (Auto) 9.4 H Eos % (Auto) 3.4 Baso % (Auto) 1.0 Neut # (Auto) 1.1 L Lymph # (Auto) 0.4 L [place] # (Auto) 0.2 Eos # (Auto) 0.1 Baso # (Auto) 0.0 WBC Differential Manual diff final Seg Neuts % (Manual) 78 H Band Neuts % (Manual) 3 Lymphocytes % (Manual) 12 Monocytes % (Manual) 3 Eosinophils % (Manual) 4 Abs Neuts (Manual) 1.4 L Differential Comment . Platelet Estimate Low L Platelet Morphology Normal Tear Drop Cells 1+ H Ovalocytes 1+ H Sodium 143 Potassium 3.3 L Chloride 108 H Carbon Dioxide 28.5 Anion Gap 7 BUN 5 L Creatinine 0.63 Estimated GFR Greater than 89 Random Glucose 125 H Calcium 7.2 L* Cancelled Prot Corrected Calcium 8.1 L Cancelled Total Bilirubin 5.3 H AST 204 H ALT 111 H Alkaline Phosphatase 89 Total Protein 5.4 L D Cancelled Albumin 1.5 L Microbiology 04/30/18 11:05 Random Urine Urine Culture - Final Shante glabrata - Imaging Impressions Venous Doppler Study 05/04/18 00:00 CONCLUSION: 1. Small echogenic focus within the right popliteal vein consistent with possible minimal residual nonocclusive thrombus. <Kely Lloyd - Last Filed: 05/04/18 16:32> - Labs CBC & Chem 7: 05/04/18 06:01 05/04/18 06:01 Laboratory Results - last 24 hr 05/04/18 05/04/18 05/04/18 06:01 06:01 06:01 WBC 1.7 L RBC 2.05 L Hgb 7.5 L Hct 22.1 L MCV 107.6 H MCH 36.7 H MCHC 34.1 RDW 18.1 H Plt Count 29 L MPV 8.3 Prelim Diff (Auto) Slide review pending Neut % (Auto) 64.7 Lymph % (Auto) 21.5 [place] % (Auto) 9.4 H Eos % (Auto) 3.4 Baso % (Auto) 1.0 Neut # (Auto) 1.1 L Lymph # (Auto) 0.4 L [place] # (Auto) 0.2 Eos # (Auto) 0.1 Baso # (Auto) 0.0 WBC Differential Manual diff final Seg Neuts % (Manual) 78 H Band Neuts % (Manual) 3 Lymphocytes % (Manual) 12 Monocytes % (Manual) 3 Eosinophils % (Manual) 4 Abs Neuts (Manual) 1.4 L Differential Comment . Platelet Estimate Low L Platelet Morphology Normal Tear Drop Cells 1+ H Ovalocytes 1+ H Sodium 143 Potassium 3.3 L Chloride 108 H Carbon Dioxide 28.5 Anion Gap 7 BUN 5 L Creatinine 0.63 Estimated GFR Greater than 89 Random Glucose 125 H Calcium 7.2 L* Cancelled Prot Corrected Calcium 8.1 L Cancelled Total Bilirubin 5.3 H AST 204 H ALT 111 H Alkaline Phosphatase 89 Total Protein 5.4 L D Cancelled Albumin 1.5 L - Imaging Impressions Venous Doppler Study 05/04/18 00:00 CONCLUSION: 1. Small echogenic focus within the right popliteal vein consistent with possible minimal residual nonocclusive thrombus. <Case Castro - Last Filed: 05/04/18 22:16> Assessment and Plan (1) Liver cirrhosis Status: Acute Code(s): K74.60 - Unspecified cirrhosis of liver (2) Hep C w/o coma, chronic Status: Acute Code(s): B18.2 - Chronic viral hepatitis C - Plan 05/03/2018 patient is resting in the bed still complains of some upper abdominal pain that radiates around to the right flank. Last hemoglobin was 8.5 on the 28th and last INR was 1.8. Patient states bowel movement yesterday no obvious blood and no fever. Patient does have urinary stones and is been followed per urology which could represent his current abdominal pain. Currently on Zosyn. GI has been monitoring patient's known cirrhosis history of hepatitis C and hepatitis B. patient's last LFTs were trending down will recheck in the morning. 05/04/18- Patient resting in bed. Venous Doppler being done at bedside. Patient denies nausea, vomiting or abdominal pain. Denies any noted bleeding.Pancytopenia noted . WBC 2.7 HGB 8.5 HCT 24.6 PLTs 31 . Total Bili 5.3 AST 204 ALT 111 ALP 89. Albumin 1.5. Hep B DNA and Quant pending. HCV RNA pending. Plan: -Diet as tolerated:Cardiac at present -Continue to monitor liver function -Continue PPI -Monitor for bleeding -Hepatic serology pending -Avoid Hepatotoxins -Continue Lactulose -Ammonia level in the am -Supportive care -Further recommendations to follow This patient has been seen by myself and Dr. Castro and this note is written on his behalf. - Attending Attestation Dr. Castro <Kely Lloyd - Last Filed: 05/04/18 16:32> (1) Liver cirrhosis Status: Acute Code(s): K74.60 - Unspecified cirrhosis of liver (2) Hep C w/o coma, chronic Status: Acute Code(s): B18.2 - Chronic viral hepatitis C - Plan Patient seen and examined Agree with above Continue with current supportive care Monitor labs <Case Castro E - Last Filed: 05/04/18 22:16> <Kely Lloyd - Last Filed: 05/04/18 16:32> (1) Liver cirrhosis Qualifiers: Hepatic cirrhosis type: other cirrhosis Qualified Code(s): K74.69 - Other cirrhosis of liver <Case Castro - Last Filed: 05/04/18 22:16> (1) Liver cirrhosis Qualifiers: Hepatic cirrhosis type: other cirrhosis Qualified Code(s): K74.69 - Other cirrhosis of liver
[2018-05-05] MEDS: Sod Chloride 0.9% Inj 1,000 ML IV.CONT SCH ×5 (00:39→14:42)
[2018-05-05] MEDS: Morphine Sulfate Inj 2 MG/ML Vial IV.PUSH PRN ×5 (00:39→20:49)
[2018-05-05 07:10] LABS: Baso % (Auto) 0.7 % (0.0-2.0); Eos # (Auto) 0.1 th/mm3 (0.0-0.4); Eos % (Auto) 3.6 % (0.0-4.0); Hematocrit 23.7 % (39.0-51.0); Hemoglobin 8.1 gm/dL (13.0-17.0); Lymph # (Auto) 0.4 th/mm3 (1.0-4.8); Lymph % (Auto) 26.1 % (9.0-44.0); Mean Corpuscular HGB Conc 34.2 % (32.0-36.0); Mean Corpuscular Volume 108.2 fL (80.0-100.0); Mean Platelet Volume 7.9 fL (7.0-11.0); Mono # (Auto) 0.1 th/mm3 (0.0-0.9); Mono % (Auto) 8.4 % (0.0-8.0); Neut # (Auto) 0.9 th/mm3 (1.8-7.7); Neut % (Auto) 61.2 % (16.0-70.0); Platelet Count 30 th/mm3 (150-450); Red Blood Count 2.19 mil/mm3 (4.50-5.90); Red Cell Distribution Width 17.4 % (11.6-17.2); White Blood Count 1.5 th/mm3 (4.0-11.0)
[2018-05-05 07:15] LABS: INR 2.2 Ratio; Prothrombin Time 22.3 sec (9.8-11.6)
[2018-05-05 07:46] LABS: Alanine Aminotransferase 127 U/L (12-78); Albumin 1.4 g/dL (3.4-5.0); Alkaline Phosphatase 99 U/L (45-117); Anion Gap 7 meq/L (5-15); Aspartate Aminotransferase 255 U/L (15-37); Blood Urea Nitrogen 4 mg/dL (7-18); Carbon Dioxide 28.6 meq/L (21.0-32.0); Chloride 110 meq/L (98-107); Glomerular Filtration Rate Greater Than 89 mL/min (>89); Glucose,Random 81 mg/dL (74-106); Potassium 3.6 meq/L (3.5-5.1); Sodium 146 meq/L (136-145); Total Protein 5.5 g/dL (6.4-8.2)
[2018-05-05 08:21] LABS: Eosinophils 5 % (0-4); Lymphocytes 23 % (9-44); Monocytes 5 % (0-8)
[2018-05-05 08:22] LABS: Platelet Morphology Normal (Normal)
[2018-05-05] MEDS: Furosemide 20 MG Tablet PO SCH (09:10)
[2018-05-05] MEDS: Carboxymethylcellulose 0.5% Opth Drops 15 ML Bottle EACH EYE PRN (09:47)
[2018-05-05] MEDS: Sodium Chloride 0.9% 2 ML Flush PRN IV.FLUSH ×2 (09:48→16:16)
[2018-05-05] MEDS: Sodium Chloride 0.9% 2 ML Flush BID IV.FLUSH SCH ×2 (11:39→20:49)
--- NOTE | 2018-05-05 12:39 | P.PNONC ---
Subjective Interval history: Patient resting in bed. No complaints at this time. He denies any nausea vomiting or diarrhea. He denies any bleeding. Discussed low platelets. Patient states "yes they tell me those are always low." Objective Vital Signs/Intake & Output: Vital Signs 05/04/18 15:30 05/04/18 16:00 05/05/18 00:00 Temperature 97.7 F 98 F Pulse Rate 67 71 Respiratory Rate 17 18 20 Blood Pressure 105/59 L 98/52 L Pulse Oximetry 100 05/05/18 02:13 05/05/18 07:59 05/05/18 09:49 Temperature 98.1 F Pulse Rate 65 Respiratory Rate 18 18 17 Blood Pressure 104/55 L Pulse Oximetry 100 05/05/18 12:00 Temperature 98.2 F Pulse Rate 69 Respiratory Rate 16 Blood Pressure 108/55 L Pulse Oximetry 99 Intake & Output 05/04/18 05/05/18 05/05/18 18:59 06:59 18:59 Intake Total 2009 Output Total 1000 / 1000 500 / 500 Balance 1010 / 1010 1500 / 1500 Weight 82.6 kg Intake: IV 1050 / 1050 1999 / 1999 NS Inj 1,000 ML @ 125 mls/hr IV 1000 / 1000 1999 .CONT .Q8H [facility] Rx#:[id number] Zosyn 3.375 GM Premix 50 ML @ 50 / 50 100 mls/hr IV.SIG Q6H [facility] Rx#: [id number] Oral 960 / 960 Output: Urine 1000 / 1000 500 / 500 Other: Date of Last Bowel Movement 05/03/18 05/04/18 Result Diagrams: 05/05/18 06:45 05/05/18 06:45 Laboratory Results: Laboratory Results - last 24 hr 05/05/18 05/05/18 05/05/18 06:45 06:45 06:45 WBC 1.5 L RBC 2.19 L Hgb 8.1 L Hct 23.7 L MCV 108.2 H MCH 37.0 H MCHC 34.2 RDW 17.4 H Plt Count 30 L MPV 7.9 Prelim Diff (Auto) Slide review pending Neut % (Auto) 61.2 Lymph % (Auto) 26.1 [place] % (Auto) 8.4 H Eos % (Auto) 3.6 Baso % (Auto) 0.7 Neut # (Auto) 0.9 L Lymph # (Auto) 0.4 L [place] # (Auto) 0.1 Eos # (Auto) 0.1 Baso # (Auto) 0.0 WBC Differential Manual diff final Seg Neuts % (Manual) 66 Band Neuts % (Manual) 1 Lymphocytes % (Manual) 23 Monocytes % (Manual) 5 Eosinophils % (Manual) 5 H Abs Neuts (Manual) 1.0 L Differential Comment . Platelet Estimate Low L Platelet Morphology Normal PT 22.3 H INR 2.2 Sodium 146 H Potassium 3.6 Chloride 110 H Carbon Dioxide 28.6 Anion Gap 7 BUN 4 L Creatinine 0.61 Estimated GFR Greater than 89 Random Glucose 81 Calcium 7.0 L* Prot Corrected Calcium 7.8 L Total Bilirubin 5.6 H AST 255 H ALT 127 H Alkaline Phosphatase 99 Ammonia Total Protein 5.5 L Albumin 1.4 L 05/05/18 06:45 WBC RBC Hgb Hct MCV MCH MCHC RDW Plt Count MPV Prelim Diff (Auto) Neut % (Auto) Lymph % (Auto) [place] % (Auto) Eos % (Auto) Baso % (Auto) Neut # (Auto) Lymph # (Auto) [place] # (Auto) Eos # (Auto) Baso # (Auto) WBC Differential Seg Neuts % (Manual) Band Neuts % (Manual) Lymphocytes % (Manual) Monocytes % (Manual) Eosinophils % (Manual) Abs Neuts (Manual) Differential Comment Platelet Estimate Platelet Morphology PT INR Sodium Potassium Chloride Carbon Dioxide Anion Gap BUN Creatinine Estimated GFR Random Glucose Calcium Prot Corrected Calcium Total Bilirubin AST ALT Alkaline Phosphatase Ammonia 164 H Total Protein Albumin Culture Results: Microbiology 04/30/18 11:05 Urine Culture - Final Random Urine Shante glabrata 05/02/18 10:53 Stool Occult Blood (SHARI) - Final Stool Hemoccult negative Imaging Studies: Impressions Venous Doppler Study 05/04/18 00:00 CONCLUSION: 1. Small echogenic focus within the right popliteal vein consistent with possible minimal residual nonocclusive thrombus. Medications: Active Medications Generic Name Dose Route Start Last Admin Trade Name Freq PRN Reason Stop Dose Admin Artificial Tears 1 drop 05/04/18 13:00 05/05/18 09:47 Refresh Tears 0.5% Opth Drops EACH EYE 1 drop TID PRN Administration DRY EYE(S) Ferrous Sulfate 325 mg 04/30/18 17:00 05/04/18 16:05 Ferosul PO 325 mg BID@1200,1700 NIRAJ Administration Furosemide 20 mg 05/02/18 09:00 05/05/18 09:10 Lasix PO 20 mg DAILY NIRAJ Administration Sodium Chloride 1,000 mls @ 125 mls/hr 04/29/18 06:30 05/05/18 06:05 Ns Inj IV.CONT Not Given .Q8H NIRAJ Morphine Sulfate 2 mg 04/29/18 09:36 05/05/18 09:47 Morphine Inj IV.PUSH 2 mg Q4H PRN Administration PAIN 2-10 IF CANT TAKE PO Pantoprazole Sodium 40 mg 05/02/18 09:00 05/05/18 09:09 Protonix PO 40 mg DAILY NIRAJ Administration Potassium Chloride 20 meq 05/04/18 09:00 05/05/18 09:09 K-Dur PO 20 meq DAILY NIRAJ Administration Sodium Chloride 2 ml 04/29/18 09:00 05/05/18 11:39 Ns Flush IV.FLUSH Not Given BID NIRAJ Sodium Chloride 2 ml 04/29/18 06:49 05/05/18 09:48 Ns Flush IV.FLUSH 2 ml PRN PRN Administration FLUSH AFTER USING IV ACCESS Objective Remarks: GENERAL: Chronically ill-appearing male patient, in no acute distress. SKIN: + Jaundice, warm and dry. Ecchymosis to left shoulder and arm. HEAD: Normocephalic. EYES: + scleral icterus. No injection or drainage. NECK: Supple, trachea midline. CARDIOVASCULAR: Regular rate and rhythm 3/6 systolic murmur aortic listening area. RESPIRATORY: Breath sounds equal bilaterally. RML with expiratory rub. No accessory muscle use. GASTROINTESTINAL: Abdomen soft, non-tender, nondistended. +BS. EXTREMITIES: No cyanosis, or edema. Chronic discoloration to bilateral lower extremities. MUSCULOSKELETAL: Adequate muscle tone. NEUROLOGICAL: No obvious focal deficit. Awake, alert, and oriented x3. +tremor PSYCHIATRIC: Appropriate mood and affect; insight and judgment normal. Assessment/Plan - Plan Mr. Valadez is a pleasant 58-year-old gentleman with a history of hepatitis C and cirrhosis, recently diagnosed with hepatitis B. patient was transferred here from [facility] for urology care. He was diagnosed with a ureteral calculus with obstruction. Hematology was consulted for pancytopenia. Plan: 1. Pancytopenia, hgb and platelets have increased slightly. No transfusions warranted at this time. 2. DIC, prolonged PT and APTT, low fibrinogen at 79 and a high d-dimer at 1.68. Likely contributing to this is his underlying liver disease and splenomegaly. There are no obvious signs of bleeding at this time. CTA was negative for pulmonary embolism. Venous ultrasound showed a small echogenic focus within the right popliteal vein, consistent with possible minimal residual nonocclusive thrombus. 3. Possible minimal residual nonocclusive thrombus in the right popliteal vein. No edema noted in the right leg. Patient's INR today is 2.2, not on any anticoagulation. Given his low platelet count and elevated INR, anticoagulation is not warranted at this time. 4. Cirrhosis, with hepatitis B and C. Gastroenterology is managing. Ammonia level increased to 164, patient on lactulose. 5. UTI and staghorn calculus, management per urology and attending. 6. Continue to monitor for bleeding.
[2018-05-05] MEDS: Ferrous Sulfate 325 MG Tablet PO SCH ×2 (13:16→17:17)
--- NOTE | 2018-05-05 13:49 | P.PN ---
Subjective Interval history: Follow-up visit for renal calculi, UTI, liver cirrhosis and pancytopenia. Patient seen and examined resting in bed appears to be in no acute distress. Patient is requesting to ambulate in the [place]. Denies any nausea, vomiting, diarrhea, cough, shortness of breath, chest pain or belly pain. No reports of bleeding by patient court monitor. Physical Exam Vital signs: Vital Signs 05/04/18 15:30 05/04/18 16:00 05/05/18 00:00 Temperature 97.7 F 98 F Pulse Rate 67 71 Respiratory Rate 17 18 20 Blood Pressure 105/59 L 98/52 L Pulse Oximetry 100 05/05/18 02:13 05/05/18 07:59 05/05/18 09:49 Temperature 98.1 F Pulse Rate 65 Respiratory Rate 18 18 17 Blood Pressure 104/55 L Pulse Oximetry 100 05/05/18 12:00 Temperature 98.2 F Pulse Rate 69 Respiratory Rate 16 Blood Pressure 108/55 L Pulse Oximetry 99 Intake & Output 05/04/18 05/05/18 05/05/18 18:59 06:59 18:59 Intake Total 2009 2000 / 1999 1000 / 1000 Output Total 1000 / 1000 500 / 500 Balance 1010 / 1010 1500 / 1500 1000 / 1000 Weight 82.6 kg Intake: IV 1050 / 1050 1999 / 2000 1000 / 1000 NS Inj 1,000 ML @ 125 mls/hr IV 1000 / 1000 2000 / 2000 1000 / 1000 .CONT .Q8H [facility] Rx#:[id number] Zosyn 3.375 GM Premix 50 ML @ 50 / 50 100 mls/hr IV.SIG Q6H [facility] Rx#: [id number] Oral 960 / 960 Output: Urine 1000 / 1000 500 / 500 Other: Date of Last Bowel Movement 05/03/18 05/04/18 Narrative: GENERAL: Well-developed, well-nourished male resting in bed. SKIN: Warm and dry. HEENT: Scleral jaundice, pupils equal round reactive, mucous membranes pink and moist. NECK: Supple no JVD. HEART: Rhythm without murmurs. LUNGS: Breath sounds equal bilaterally without wheezing, crackles or rhonchi. ABDOMEN: +BS, soft, positive bowel sounds in all quadrants. EXTREMITIES: Left upper extremity scattered ecchymosis. Bilateral lower extremity vascular discoloration noted with trace edema. NEURO: Awake and alert. PSYCH: Appropriate mood and affect. Results - Labs CBC & Chem 7: 05/05/18 06:45 05/05/18 06:45 Laboratory Results - last 24 hr 05/05/18 05/05/18 05/05/18 06:45 06:45 06:45 WBC 1.5 L RBC 2.19 L Hgb 8.1 L Hct 23.7 L MCV 108.2 H MCH 37.0 H MCHC 34.2 RDW 17.4 H Plt Count 30 L MPV 7.9 Prelim Diff (Auto) Slide review pending Neut % (Auto) 61.2 Lymph % (Auto) 26.1 [place] % (Auto) 8.4 H Eos % (Auto) 3.6 Baso % (Auto) 0.7 Neut # (Auto) 0.9 L Lymph # (Auto) 0.4 L [place] # (Auto) 0.1 Eos # (Auto) 0.1 Baso # (Auto) 0.0 WBC Differential Manual diff final Seg Neuts % (Manual) 66 Band Neuts % (Manual) 1 Lymphocytes % (Manual) 23 Monocytes % (Manual) 5 Eosinophils % (Manual) 5 H Abs Neuts (Manual) 1.0 L Differential Comment . Platelet Estimate Low L Platelet Morphology Normal PT 22.3 H INR 2.2 Sodium 146 H Potassium 3.6 Chloride 110 H Carbon Dioxide 28.6 Anion Gap 7 BUN 4 L Creatinine 0.61 Estimated GFR Greater than 89 Random Glucose 81 Calcium 7.0 L* Prot Corrected Calcium 7.8 L Total Bilirubin 5.6 H AST 255 H ALT 127 H Alkaline Phosphatase 99 Ammonia Total Protein 5.5 L Albumin 1.4 L 05/05/18 06:45 WBC RBC Hgb Hct MCV MCH MCHC RDW Plt Count MPV Prelim Diff (Auto) Neut % (Auto) Lymph % (Auto) [place] % (Auto) Eos % (Auto) Baso % (Auto) Neut # (Auto) Lymph # (Auto) [place] # (Auto) Eos # (Auto) Baso # (Auto) WBC Differential Seg Neuts % (Manual) Band Neuts % (Manual) Lymphocytes % (Manual) Monocytes % (Manual) Eosinophils % (Manual) Abs Neuts (Manual) Differential Comment Platelet Estimate Platelet Morphology PT INR Sodium Potassium Chloride Carbon Dioxide Anion Gap BUN Creatinine Estimated GFR Random Glucose Calcium Prot Corrected Calcium Total Bilirubin AST ALT Alkaline Phosphatase Ammonia 164 H Total Protein Albumin - Imaging Impressions Venous Doppler Study 05/04/18 00:00 CONCLUSION: 1. Small echogenic focus within the right popliteal vein consistent with possible minimal residual nonocclusive thrombus. Assessment and Plan - Plan 58 YOWM with history of Hep B, Hep C, and liver cirrhosis admitted on 04/29 after being transferred from [facility] for staghorn renal calculus complicated by UTI. 1. Nephrolithiasis with UTI CT scan done at [facility] showing a 3.5 cm staghorn calculus in the right kidney with associated UTI. Patient was transferred to [place] for on- call urology Urology consulted. No acute intervention needed but patient will need a PCNL in the future as an outpatient Reviewed U/A from [place] on 04/28 which showed + nitrite, + leukocytes, + bacteria and yeast, and final urine culture resulted on 05/01 showed no growth Urine culture from 04/30 done at [place] growing Shante glabrata Stop Zosyn and change IV Diflucan to PO with plan to treat for a total of 2 weeks 2. Pancytopenia Counts are continue to decrease: WBC down to 1.5, hemoglobin with slight increase to 8.1, platelets 30 HIV negative Heme/onc following, concern for possible DIC given prolonged PT and APTT, low fibrinogen, and elevated D-dimer Ultrasound of the spleen showed splenomegaly with prominent central splenic veins that may reflect portal hypertension given history of cirrhosis Remains hemodynamically stable (BPs have been low entire admission, patient not tachycardic, diaphoretic, short of breath, etc.). Continue to monitor CBC No active bleeding though patient having some bruising. Monitor for active bleeding or hemodynamic instability 3. Liver cirrhosis/HCV/HBV With associated elevated LFTs, bilirubin, coagulopathy, hyperammonemia, and hypoalbuminemia History of heavy alcohol abuse but quit 5 years ago S/p treatment with Harvoni and recently tenofovir was prescribed with diagnosis of hepatitis B the patient was apparently not compliant Previously worked up in [facility] for liver transplant 2016 but unfortunately was not a candidate due to social issues and lack of support Last EGD and colonoscopy in November 2016, portal hypertensive gastropathy noted on EGD otherwise both exams were normal GI following HBV DNA levels high and HCV RNA pending Continue spironolactone, Lasix, lactulose Continue to monitor LFTs and avoid hepatotoxic agents -Lactulose increase to QID. GI considering Entecavir. 4. Hypokalemia Start KCl PO 20 mEq daily 5. 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
[2018-05-05] MEDS ORDERED: Calcium Gluconate Inj 1 GM in Dextrose 5% in Water Inj 100 ML IV.SIG ONE ×2 (14:00)
--- NOTE | 2018-05-05 14:41 | P.PNGI ---
Subjective Interval history: Sleeping today but arouses and is answering simple questions. Denies any acute nausea or vomiting or abdominal pain <Cynthia Garcia - Last Filed: 05/05/18 14:41> Physical Exam Vital signs: Vital Signs 05/04/18 15:30 05/04/18 16:00 05/05/18 00:00 Temperature 97.7 F 98 F Pulse Rate 67 71 Respiratory Rate 17 18 20 Blood Pressure 105/59 L 98/52 L Pulse Oximetry 100 05/05/18 02:13 05/05/18 07:59 05/05/18 09:49 Temperature 98.1 F Pulse Rate 65 Respiratory Rate 18 18 17 Blood Pressure 104/55 L Pulse Oximetry 100 05/05/18 12:00 Temperature 98.2 F Pulse Rate 69 Respiratory Rate 16 Blood Pressure 108/55 L Pulse Oximetry 99 Intake & Output 05/04/18 05/05/18 05/05/18 18:59 06:59 18:59 Intake Total 2009 2000 / 2000 1000 / 1000 Output Total 1000 / 1000 500 / 500 Balance 1010 / 1010 1500 / 1500 1000 / 1000 Weight 82.6 kg Intake: IV 1050 / 1050 2000 / 2000 1000 / 1000 NS Inj 1,000 ML @ 125 mls/hr IV 1000 / 1000 2000 / 2000 1000 / 1000 .CONT .Q8H [facility] Rx#:[id number] Zosyn 3.375 GM Premix 50 ML @ 50 / 50 100 mls/hr IV.SIG Q6H [facility] Rx#: [id number] Oral 960 / 960 Output: Urine 1000 / 1000 500 / 500 Other: Date of Last Bowel Movement 05/03/18 05/04/18 - Constitutional no acute distress, thin (With the exception of core/abdomen) - Routine HEENT Exam ENT: Present: mucous membranes dry - Routine Neck Exam Present: supple - Routine Respiratory Exam Present: accessory muscle use (Low volumes but no obvious shortness of breath) - Routine Cardiovascular Exam Present: S1, S2 (Distant) - Routine Abdominal Exam Present: distended (Mild, soft bowel sounds, no tenderness to light palpation) - Routine Neurological Exam Present: moving all extremities (Sleeping today states he feels a little more fatigued answering simple questions), normal speech <Cynthia Garcia - Last Filed: 05/05/18 14:41> Vital signs: Vital Signs 05/05/18 00:00 05/05/18 02:13 05/05/18 07:59 Temperature 98 F 98.1 F Pulse Rate 71 65 Respiratory Rate 20 18 18 Blood Pressure 98/52 L 104/55 L Pulse Oximetry 100 05/05/18 09:49 05/05/18 12:00 05/05/18 15:43 Temperature 98.2 F 98.2 F Pulse Rate 69 72 Respiratory Rate 17 16 16 Blood Pressure 108/55 L 104/59 L Pulse Oximetry 99 98 05/05/18 16:17 Temperature Pulse Rate Respiratory Rate 17 Blood Pressure Pulse Oximetry Intake & Output 05/05/18 05/05/18 05/06/18 06:59 18:59 06:59 Intake Total 1999 2310 / 2310 Output Total 500 / 500 1000 / 1000 Balance 1500 / 1500 1310 / 1310 Weight 82.6 kg Intake: IV 1999 1110 / 1110 NS Inj 1,000 ML @ 125 mls/hr IV 1999 1000 / 1000 .CONT .Q8H [facility] Rx#:[id number] Calcium Gluconate Inj 1 GM In 110 / 110 D5W Inj 100 ML @ 110 mls/hr IV. SIG ONCE ONE Rx#:[id number] Oral 1200 / 1200 Output: Urine 500 / 500 1000 / 1000 Other: Date of Last Bowel Movement 05/04/18 # Bowel Movements 0 <Case Castro E - Last Filed: 05/05/18 19:50> Results - Labs CBC & Chem 7: 05/05/18 06:45 05/05/18 06:45 Laboratory Results - last 24 hr 05/05/18 05/05/18 05/05/18 06:45 06:45 06:45 WBC 1.5 L RBC 2.19 L Hgb 8.1 L Hct 23.7 L MCV 108.2 H MCH 37.0 H MCHC 34.2 RDW 17.4 H Plt Count 30 L MPV 7.9 Prelim Diff (Auto) Slide review pending Neut % (Auto) 61.2 Lymph % (Auto) 26.1 [place] % (Auto) 8.4 H Eos % (Auto) 3.6 Baso % (Auto) 0.7 Neut # (Auto) 0.9 L Lymph # (Auto) 0.4 L [place] # (Auto) 0.1 Eos # (Auto) 0.1 Baso # (Auto) 0.0 WBC Differential Manual diff final Seg Neuts % (Manual) 66 Band Neuts % (Manual) 1 Lymphocytes % (Manual) 23 Monocytes % (Manual) 5 Eosinophils % (Manual) 5 H Abs Neuts (Manual) 1.0 L Differential Comment . Platelet Estimate Low L Platelet Morphology Normal PT 22.3 H INR 2.2 Sodium 146 H Potassium 3.6 Chloride 110 H Carbon Dioxide 28.6 Anion Gap 7 BUN 4 L Creatinine 0.61 Estimated GFR Greater than 89 Random Glucose 81 Calcium 7.0 L* Prot Corrected Calcium 7.8 L Total Bilirubin 5.6 H AST 255 H ALT 127 H Alkaline Phosphatase 99 Ammonia Total Protein 5.5 L Albumin 1.4 L 05/05/18 06:45 WBC RBC Hgb Hct MCV MCH MCHC RDW Plt Count MPV Prelim Diff (Auto) Neut % (Auto) Lymph % (Auto) [place] % (Auto) Eos % (Auto) Baso % (Auto) Neut # (Auto) Lymph # (Auto) [place] # (Auto) Eos # (Auto) Baso # (Auto) WBC Differential Seg Neuts % (Manual) Band Neuts % (Manual) Lymphocytes % (Manual) Monocytes % (Manual) Eosinophils % (Manual) Abs Neuts (Manual) Differential Comment Platelet Estimate Platelet Morphology PT INR Sodium Potassium Chloride Carbon Dioxide Anion Gap BUN Creatinine Estimated GFR Random Glucose Calcium Prot Corrected Calcium Total Bilirubin AST ALT Alkaline Phosphatase Ammonia 164 H Total Protein Albumin <Cynthia Garcia - Last Filed: 05/05/18 14:41> - Labs CBC & Chem 7: 05/05/18 06:45 05/05/18 06:45 Laboratory Results - last 24 hr 05/01/18 05/05/18 05/05/18 10:29 06:45 06:45 WBC 1.5 L RBC 2.19 L Hgb 8.1 L Hct 23.7 L MCV 108.2 H MCH 37.0 H MCHC 34.2 RDW 17.4 H Plt Count 30 L MPV 7.9 Prelim Diff (Auto) Slide review pending Neut % (Auto) 61.2 Lymph % (Auto) 26.1 [place] % (Auto) 8.4 H Eos % (Auto) 3.6 Baso % (Auto) 0.7 Neut # (Auto) 0.9 L Lymph # (Auto) 0.4 L [place] # (Auto) 0.1 Eos # (Auto) 0.1 Baso # (Auto) 0.0 WBC Differential Manual diff final Seg Neuts % (Manual) 66 Band Neuts % (Manual) 1 Lymphocytes % (Manual) 23 Monocytes % (Manual) 5 Eosinophils % (Manual) 5 H Abs Neuts (Manual) 1.0 L Differential Comment . Platelet Estimate Low L Platelet Morphology Normal PT 22.3 H INR 2.2 Sodium Potassium Chloride Carbon Dioxide Anion Gap BUN Creatinine Estimated GFR Random Glucose Calcium Prot Corrected Calcium Total Bilirubin AST ALT Alkaline Phosphatase Ammonia Total Protein Albumin Hep B DNA Qnt log IU/mL 4.91 H Hep B DNA (IU/mL) 21426 H 05/05/18 05/05/18 06:45 06:45 WBC RBC Hgb Hct MCV MCH MCHC RDW Plt Count MPV Prelim Diff (Auto) Neut % (Auto) Lymph % (Auto) [place] % (Auto) Eos % (Auto) Baso % (Auto) Neut # (Auto) Lymph # (Auto) [place] # (Auto) Eos # (Auto) Baso # (Auto) WBC Differential Seg Neuts % (Manual) Band Neuts % (Manual) Lymphocytes % (Manual) Monocytes % (Manual) Eosinophils % (Manual) Abs Neuts (Manual) Differential Comment Platelet Estimate Platelet Morphology PT INR Sodium 146 H Potassium 3.6 Chloride 110 H Carbon Dioxide 28.6 Anion Gap 7 BUN 4 L Creatinine 0.61 Estimated GFR Greater than 89 Random Glucose 81 Calcium 7.0 L* Prot Corrected Calcium 7.8 L Total Bilirubin 5.6 H AST 255 H ALT 127 H Alkaline Phosphatase 99 Ammonia 164 H Total Protein 5.5 L Albumin 1.4 L Hep B DNA Qnt log IU/mL Hep B DNA (IU/mL) <Case Casrto - Last Filed: 05/05/18 19:50> Assessment and Plan (1) Liver cirrhosis Status: Acute Code(s): K74.60 - Unspecified cirrhosis of liver (2) Hep C w/o coma, chronic Status: Acute Code(s): B18.2 - Chronic viral hepatitis C - Plan (1) Liver cirrhosis Status: Acute Code(s): K74.60 - Unspecified cirrhosis of liver (2) Hep C w/o coma, chronic Status: Acute Code(s): B18.2 - Chronic viral hepatitis C 05/03/2018 patient is resting in the bed still complains of some upper abdominal pain that radiates around to the right flank. Last hemoglobin was 8.5 on the and last INR was 1.8. Patient states bowel movement yesterday no obvious blood and no fever. Patient does have urinary stones and is been followed per urology which could represent his current abdominal pain. Currently on Zosyn. GI has been monitoring patient's known cirrhosis history of hepatitis C and hepatitis B. patient's last LFTs were trending down will recheck in the morning. 05/04/18- Patient resting in bed. Venous Doppler being done at bedside. Patient denies nausea, vomiting or abdominal pain. Denies any noted bleeding.Pancytopenia noted . WBC 2.7 HGB 8.5 HCT 24.6 PLTs 31 . Total Bili 5.3 AST 204 ALT 111 ALP 89. Albumin 1.5. Hep B DNA and Quant pending. HCV RNA pending. 05/05/2018 patient appears to be a little more drowsy and sleeping when entered room but awakened and responded to simple questions. Appears non- encephalopathic although ammonia level has increased to 164. Bilirubin elevated again to 5.6 AST 255/ALT 127. Initially LFTs and bilirubin were trending down but now appear to be back up over the past 24 hours as well as ammonia level. Increase lactulose to 4 times a day and explained to patient he needed to be up only with help, but could be up in the chair if he felt like it. Dependent on patient's mental status and his lab work, and hepatitis B may need to consider Entecavir. Plan: Diet cardiac Increased lactulose to 4 times a day Recheck ammonia level in a.m. Avoid all hepatotoxins Labs hep B and hep C serology pending Supportive care Encourage patient to be up in chair , maintain mobility Patient was seen per myself and Dr. Castro, note was written on his behalf <Cynthia Garcia - Last Filed: 05/05/18 14:41> (1) Liver cirrhosis Status: Acute Code(s): K74.60 - Unspecified cirrhosis of liver (2) Hep C w/o coma, chronic Status: Acute Code(s): B18.2 - Chronic viral hepatitis C - Plan Patient seen and examined Agree with above Continue with current supportive care Monitor labs Patient at risk for liver failure we will continue to monitor closely <Case Castro E - Last Filed: 05/05/18 19:50> <Cynthia Garcia M - Last Filed: 05/05/18 14:41> (1) Liver cirrhosis Qualifiers: Hepatic cirrhosis type: other cirrhosis Qualified Code(s): K74.69 - Other cirrhosis of liver <Case Castro E - Last Filed: 05/05/18 19:50> (1) Liver cirrhosis Qualifiers: Hepatic cirrhosis type: other cirrhosis Qualified Code(s): K74.69 - Other cirrhosis of liver
[2018-05-05 15:52] LABS: Hepatitis B DNA (Log IU/mL) 4.91 (0-1.30)
[2018-05-06] MEDS: Sod Chloride 0.9% Inj 1,000 ML IV.CONT SCH ×4 (04:21→22:07)
[2018-05-06] MEDS: Furosemide 20 MG Tablet PO SCH (08:57)
[2018-05-06] MEDS: Sodium Chloride 0.9% 2 ML Flush BID IV.FLUSH SCH ×2 (08:58→22:07)
[2018-05-06] MEDS: Morphine Sulfate Inj 2 MG/ML Vial IV.PUSH PRN ×3 (08:58→22:05)
--- NOTE | 2018-05-06 10:45 | P.PN ---
Subjective Interval history: Follow-up for renal calculus, candidal UTI, liver cirrhosis and pancytopenia. Patient is seen and examined sitting up in bed eating. Patient complains of right lower quadrant pain, states abdominal pain has been ongoing for the past 4 days. Denies any nausea, vomiting, diarrhea, dysuria, shortness of breath, cough or chest pain. No bleeding reported from patient or nurse. Physical Exam Vital signs: Vital Signs 05/05/18 12:00 05/05/18 15:43 05/05/18 16:17 Temperature 98.2 F 98.2 F Pulse Rate 69 72 Respiratory Rate 16 16 17 Blood Pressure 108/55 L 104/59 L Pulse Oximetry 99 98 05/05/18 20:00 05/05/18 22:02 05/06/18 00:00 Temperature 98.3 F 97.9 F Pulse Rate 70 83 Respiratory Rate 18 18 18 Blood Pressure 97/54 L 116/57 L Pulse Oximetry 100 99 05/06/18 07:39 05/06/18 08:00 Temperature 98.3 F 98.1 F Pulse Rate 73 93 H Respiratory Rate 18 19 Blood Pressure 103/60 159/95 H Pulse Oximetry 99 100 Intake & Output 05/05/18 05/06/18 05/06/18 18:59 06:59 18:59 Intake Total 2310 / 2310 1000 / 1000 1000 / 1000 Output Total 1000 / 1000 900 / 900 Balance 1310 / 1310 100 / 100 1000 / 1000 Weight 83.2 kg Intake: IV 1110 / 1110 1000 / 1000 1000 / 1000 NS Inj 1,000 ML @ 125 mls/hr IV 1000 / 1000 1000 / 1000 1000 / 1000 .CONT .Q8H [facility] Rx#:[id number] Calcium Gluconate Inj 1 GM In 110 / 110 D5W Inj 100 ML @ 110 mls/hr IV. SIG ONCE ONE Rx#:[id number] Oral 1200 / 1200 Output: Urine 1000 / 1000 900 / 900 Other: Date of Last Bowel Movement 05/04/18 # Bowel Movements 0 Narrative: GENERAL: Well-developed, well-nourished male resting in bed. SKIN: Warm and dry. HEENT: Scleral jaundice, pupils equal round reactive, mucous membranes pink and moist. NECK: Supple no JVD. HEART: Rhythm without murmurs. LUNGS: Breath sounds equal bilaterally without wheezing, crackles or rhonchi. ABDOMEN: +BS, soft, positive bowel sounds in all quadrants. Tenderness to RLQ EXTREMITIES: Left upper extremity scattered ecchymosis. Bilateral lower extremity vascular discoloration noted with trace edema. NEURO: Awake and alert. PSYCH: Appropriate mood and affect. Results - Labs CBC & Chem 7: 05/06/18 14:38 05/06/18 12:18 Laboratory Results - last 24 hr 05/01/18 05/06/18 10:29 06:48 Ammonia 136 H Hep B DNA Qnt log IU/mL 4.91 H Hep B DNA (IU/mL) 47687 H Assessment and Plan - Plan 58 YOWM with history of Hep B, Hep C, and liver cirrhosis admitted on 04/29 after being transferred from [facility] for staghorn renal calculus complicated by UTI. 1. Nephrolithiasis with UTI CT scan done at [facility] showing a 3.5 cm staghorn calculus in the right kidney with associated UTI. Patient was transferred to [facility] for on- call urology Urology consulted. No acute intervention needed but patient will need a PCNL in the future as an outpatient Reviewed U/A from [place] on 04/28 which showed + nitrite, + leukocytes, + bacteria and yeast, and final urine culture resulted on 05/01 showed no growth Urine culture from 04/30 done at [facility] growing Shante glabrata Stop Zosyn and change IV Diflucan to PO with plan to treat for a total of 2 weeks 2. Pancytopenia Slight improvement in WBCs, H&H and platelets HIV negative Heme/onc following, concern for possible DIC given prolonged PT and APTT, low fibrinogen, and elevated D-dimer Ultrasound of the spleen showed splenomegaly with prominent central splenic veins that may reflect portal hypertension given history of cirrhosis Remains hemodynamically stable (BPs have been low entire admission, patient not tachycardic, diaphoretic, short of breath, etc.). Continue to monitor CBC No active bleeding though patient having some bruising. Monitor for active bleeding or hemodynamic instability -Hematology/oncology plans to recheck fibrinogen level tomorrow 3. Liver cirrhosis/HCV/HBV With associated elevated LFTs, bilirubin, coagulopathy, hyperammonemia, and hypoalbuminemia History of heavy alcohol abuse but quit 5 years ago S/p treatment with Harvoni and recently tenofovir was prescribed with diagnosis of hepatitis B the patient was apparently not compliant Previously worked up in [facility] for liver transplant 2016 but unfortunately was not a candidate due to social issues and lack of support Last EGD and colonoscopy in November 2016, portal hypertensive gastropathy noted on EGD otherwise both exams were normal GI following HBV DNA quantitative log elevated, Hep B DNA elevated, Hep B antigen & core IgM antibody reactive, hep C IgG reactive. - GI recommends follow-up as outpatient in clinic when discharged. Continue spironolactone, Lasix, lactulose -Lactulose QID, ammonia slightly improved to 136. - Tbili higher at 7.6 with LFT's increased, INR 2.2 -Avoid hepatotoxins, continue to monitor INR and LFTs 4. Hypokalemia Continue KCl PO 20 mEq daily 5. 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 Patient is homeless however does have a friend who he is agreeable to stay with once discharged.
[2018-05-06] MEDS: Ferrous Sulfate 325 MG Tablet PO SCH ×2 (11:31→17:12)
[2018-05-06 12:57] LABS: Alanine Aminotransferase 157 U/L (12-78); Albumin 1.6 g/dL (3.4-5.0); Anion Gap 8 meq/L (5-15); Aspartate Aminotransferase 300 U/L (15-37); Blood Urea Nitrogen 5 mg/dL (7-18); Calcium 7.5 mg/dL (8.5-10.1); Carbon Dioxide 25.1 meq/L (21.0-32.0); Chloride 108 meq/L (98-107); Glomerular Filtration Rate Greater Than 89 mL/min (>89); Glucose,Random 111 mg/dL (74-106); Potassium 3.9 meq/L (3.5-5.1); Sodium 141 meq/L (136-145)
[2018-05-06 13:00] LABS: Alkaline Phosphatase 123 U/L (45-117); Total Protein 6.7 g/dL (6.4-8.2)
--- NOTE | 2018-05-06 13:54 | XR ---
EXAM DATE: 05/06/2018 12:00 AM EDT AGE/SEX: 58 years / Male INDICATIONS: Abdomen pain. CLINICAL DATA: This is the patient's subsequent encounter. Patient reports that signs and symptoms h ave been present for 4 - 6 days and indicates a pain score of 5/10. MEDICAL/SURGICAL HISTORY: . Hepatitis C. Cirrhosis. Renal calculi. . Cholecystectomy. Stent pl acement. COMPARISON: No prior exams available for comparison. FINDINGS: Staghorn calculi present on the right. Double-J stent is in good position. Radiographic contrast is p resent bladder. There are no calcifications medical bones CONCLUSION: Double-J stent in good position on the right. Large right staghorn calculus. Electronically signed by: Vel Mcleod MD 05/06/2018 1:53 PM EDT
--- NOTE | 2018-05-06 14:40 | P.PNGI ---
Subjective Interval history: Resting in the bed encourage patient to maintain hydration as well as nutrition and is much mobility as he can tolerate Awake answering simple questions appropriately, fatigued <Cynthia Garcia - Last Filed: 05/06/18 14:35> Physical Exam Vital signs: Vital Signs 05/05/18 15:43 05/05/18 16:17 05/05/18 20:00 Temperature 98.2 F 98.3 F Pulse Rate 72 70 Respiratory Rate 16 17 18 Blood Pressure 104/59 L 97/54 L Pulse Oximetry 98 100 05/05/18 22:02 05/06/18 00:00 05/06/18 07:39 Temperature 97.9 F 98.3 F Pulse Rate 83 73 Respiratory Rate 18 18 18 Blood Pressure 116/57 L 103/60 Pulse Oximetry 99 99 05/06/18 08:00 05/06/18 11:30 Temperature 98.1 F 98.9 F Pulse Rate 93 H 75 Respiratory Rate 19 17 Blood Pressure 159/95 H 125/68 Pulse Oximetry 100 100 Intake & Output 05/05/18 05/06/18 05/06/18 18:59 06:59 18:59 Intake Total 2310 / 2310 1000 / 1000 1999 / 1999 Output Total 1000 / 1000 900 / 900 100 / 100 Balance 1310 / 1310 100 / 100 1900 / 1900 Weight 83.2 kg Intake: IV 1110 / 1110 1000 / 1000 1999 / 1999 NS Inj 1,000 ML @ 125 mls/hr IV 1000 / 1000 1000 / 1000 2000 / 2000 .CONT .Q8H [facility] Rx#:[id number] Calcium Gluconate Inj 1 GM In 110 / 110 D5W Inj 100 ML @ 110 mls/hr IV. SIG ONCE ONE Rx#:[id number] Oral 1200 / 1200 Output: Urine 1000 / 1000 900 / 900 100 / 100 Other: Date of Last Bowel Movement 05/04/18 # Bowel Movements 0 - Constitutional mild distress, chronically ill appearing - Routine HEENT Exam Head: Present: normocephalic ENT: Present: mucous membranes dry - Routine Respiratory Exam Present: accessory muscle use (No obvious shortness of breath at rest but low volumes) - Routine Cardiovascular Exam Present: S1, S2 - Routine Abdominal Exam Present: soft (Round, mild to moderate distention but no obvious tenderness, bowel sounds present) <Cynthia Garcia - Last Filed: 05/06/18 14:35> Vital signs: Vital Signs 05/05/18 16:17 05/05/18 20:00 05/05/18 22:02 Temperature 98.3 F Pulse Rate 70 Respiratory Rate 17 18 18 Blood Pressure 97/54 L Pulse Oximetry 100 05/06/18 00:00 05/06/18 07:39 05/06/18 08:00 Temperature 97.9 F 98.3 F 98.1 F Pulse Rate 83 73 93 H Respiratory Rate 18 18 19 Blood Pressure 116/57 L 103/60 159/95 H Pulse Oximetry 99 99 100 05/06/18 11:30 Temperature 98.9 F Pulse Rate 75 Respiratory Rate 17 Blood Pressure 125/68 Pulse Oximetry 100 Intake & Output 05/05/18 05/06/18 05/06/18 18:59 06:59 18:59 Intake Total 2310 / 2310 1000 / 1000 1999 / 1999 Output Total 1000 / 1000 900 / 900 100 / 100 Balance 1310 / 1310 100 / 100 1900 / 1900 Weight 83.2 kg Intake: IV 1110 / 1110 1000 / 1000 1999 / 1999 NS Inj 1,000 ML @ 125 mls/hr IV 1000 / 1000 1000 / 1000 2000 / 2000 .CONT .Q8H [facility] Rx#:[id number] Calcium Gluconate Inj 1 GM In 110 / 110 D5W Inj 100 ML @ 110 mls/hr IV. SIG ONCE ONE Rx#:[id number] Oral 1200 / 1200 Output: Urine 1000 / 1000 900 / 900 100 / 100 Other: Date of Last Bowel Movement 05/04/18 # Bowel Movements 0 <Case Castro E - Last Filed: 05/06/18 16:20> Results - Labs CBC & Chem 7: 05/05/18 06:45 05/06/18 12:18 Laboratory Results - last 24 hr 05/01/18 05/06/18 05/06/18 10:29 06:48 12:18 Sodium 141 Potassium 3.9 Chloride 108 H Carbon Dioxide 25.1 Anion Gap 8 BUN 5 L Creatinine 0.69 Estimated GFR Greater than 89 Random Glucose 111 H Calcium 7.5 L Total Bilirubin 7.6 H AST 300 H ALT 157 H Alkaline Phosphatase 123 H Ammonia 136 H Total Protein 6.7 D Albumin 1.6 L Hep B DNA Qnt log IU/mL 4.91 H Hep B DNA (IU/mL) 78105 H HCV RNA (PCR) IUs/ml HCV RNA PCR log IUs/ml - Imaging Impressions Abdomen X-Ray 05/06/18 00:00 CONCLUSION: Double-J stent in good position on the right. Large right staghorn calculus. <Cynthia Garcia - Last Filed: 05/06/18 14:35> - Labs CBC & Chem 7: 05/06/18 14:38 05/06/18 12:18 Laboratory Results - last 24 hr 05/01/18 05/06/18 05/06/18 10:29 06:48 12:18 WBC RBC Hgb Hct MCV MCH MCHC RDW Plt Count MPV Prelim Diff (Auto) Neut % (Auto) Lymph % (Auto) [place] % (Auto) Eos % (Auto) Baso % (Auto) Neut # (Auto) Lymph # (Auto) [place] # (Auto) Eos # (Auto) Baso # (Auto) Differential Comment PT INR Sodium 141 Potassium 3.9 Chloride 108 H Carbon Dioxide 25.1 Anion Gap 8 BUN 5 L Creatinine 0.69 Estimated GFR Greater than 89 Random Glucose 111 H Calcium 7.5 L Total Bilirubin 7.6 H AST 300 H ALT 157 H Alkaline Phosphatase 123 H Ammonia 136 H Total Protein 6.7 D Albumin 1.6 L HCV RNA (PCR) IUs/ml HCV RNA PCR log IUs/ml 05/06/18 05/06/18 14:38 14:38 WBC 2.7 L RBC 2.67 L Hgb 9.9 L Hct 28.6 L MCV 107.3 H MCH 37.0 H MCHC 34.5 RDW 18.1 H Plt Count 44 L D MPV 8.5 Prelim Diff (Auto) Slide review pending Neut % (Auto) 72.8 H Lymph % (Auto) 17.4 [place] % (Auto) 6.9 Eos % (Auto) 2.0 Baso % (Auto) 0.9 Neut # (Auto) 1.9 Lymph # (Auto) 0.5 L [place] # (Auto) 0.2 Eos # (Auto) 0.1 Baso # (Auto) 0.0 Differential Comment . PT 23.0 H INR 2.3 Sodium Potassium Chloride Carbon Dioxide Anion Gap BUN Creatinine Estimated GFR Random Glucose Calcium Total Bilirubin AST ALT Alkaline Phosphatase Ammonia Total Protein Albumin HCV RNA (PCR) IUs/ml HCV RNA PCR log IUs/ml - Imaging Impressions Abdomen X-Ray 05/06/18 00:00 CONCLUSION: Double-J stent in good position on the right. Large right staghorn calculus. <Case Castro - Last Filed: 05/06/18 16:20> Assessment and Plan (1) Liver cirrhosis Status: Acute Code(s): K74.60 - Unspecified cirrhosis of liver (2) Hep C w/o coma, chronic Status: Acute Code(s): B18.2 - Chronic viral hepatitis C - Plan (1) Liver cirrhosis Status: Acute Code(s): K74.60 - Unspecified cirrhosis of liver (2) Hep C w/o coma, chronic Status: Acute Code(s): B18.2 - Chronic viral hepatitis C - Plan (1) Liver cirrhosis Status: Acute Code(s): K74.60 - Unspecified cirrhosis of liver (2) Hep C w/o coma, chronic Status: Acute Code(s): B18.2 - Chronic viral hepatitis C 05/03/2018 patient is resting in the bed still complains of some upper abdominal pain that radiates around to the right flank. Last hemoglobin was 8.5 on the and last INR was 1.8. Patient states bowel movement yesterday no obvious blood and no fever. Patient does have urinary stones and is been followed per urology which could represent his current abdominal pain. Currently on Zosyn. GI has been monitoring patient's known cirrhosis history of hepatitis C and hepatitis B. patient's last LFTs were trending down will recheck in the morning. 05/04/18- Patient resting in bed. Venous Doppler being done at bedside. Patient denies nausea, vomiting or abdominal pain. Denies any noted bleeding.Pancytopenia noted . WBC 2.7 HGB 8.5 HCT 24.6 PLTs 31 . Total Bili 5.3 AST 204 ALT 111 ALP 89. Albumin 1.5. Hep B DNA and Quant pending. HCV RNA pending. 05/05/2018 patient appears to be a little more drowsy and sleeping when entered room but awakened and responded to simple questions. Appears non- encephalopathic although ammonia level has increased to 164. Bilirubin elevated again to 5.6 AST 255/ALT 127. Initially LFTs and bilirubin were trending down but now appear to be back up over the past 24 hours as well as ammonia level. Increase lactulose to 4 times a day and explained to patient he needed to be up only with help, but could be up in the chair if he felt like it. Dependent on patient's mental status and his lab work, and hepatitis B may need to consider Entecavir. 05/06/2018 patient is more alert today but still appears to have generalized weakness and fatigue. Current hemoglobin mildly increased to 8.1. Bowel movement x1 today but explained to patient that it is okay for up to 4 BMs a day with increased lactulose dose ammonia level decreased to 136 today. Patient is non-encephalopathic and is answering simple questions without any problems will need to convert monitor LFTs bilirubin as well as ammonia because patient is high risk for liver failure. Supportive care. Hepatitis B DNA quantitative log 4.91 elevated, hep C IgG antibody reactive, hep B DNA IU/ml, 08059 elevated. Hep B antigen reactive as well as core IgM antibody. Continues with cirrhosis and liver failure hepatitis B. Plan: Diet cardiac diet and hydration is much as he can tolerate lactulose to 4 times a day Monitor labs Avoid all hepatotoxins Patient will need follow-up in the GI office after he is stable for discharge Patient was seen per myself and Dr. Castro, note was written on his behalf <Cynthia Garcia - Last Filed: 05/06/18 14:35> (1) Liver cirrhosis Status: Acute Code(s): K74.60 - Unspecified cirrhosis of liver (2) Hep C w/o coma, chronic Status: Acute Code(s): B18.2 - Chronic viral hepatitis C - Plan Patient seen and examined Agree with above Continue with current supportive care Monitor labs With worsening LFTs and coagulation/PT/INR my concern would be that the patient may be going into liver failure Unfortunately patient has no support system he is homeless he appears to be noncompliant with medications he admits marijuana use recently and as such he would be a poor surgical candidate for liver transplant At this point looks like his prognosis is poor and we will continue with current supportive measures It is unclear to me how he got started on tenofovir although it looks like he has acute hepatitis B but as he appears to be worsening I think it would be a good idea to start him back on tenofovir at this point <Matthew,Case E - Last Filed: 05/06/18 16:20> <Cynthia Garcia M - Last Filed: 05/06/18 14:35> (1) Liver cirrhosis Qualifiers: Hepatic cirrhosis type: other cirrhosis Qualified Code(s): K74.69 - Other cirrhosis of liver <Case Castro E - Last Filed: 05/06/18 16:20> (1) Liver cirrhosis Qualifiers: Hepatic cirrhosis type: other cirrhosis Qualified Code(s): K74.69 - Other cirrhosis of liver
--- NOTE | 2018-05-06 14:59 | P.PNONC ---
Subjective Interval history: Patient sleeping on approach, awakens easily to voice. States he is tired today. CBC and INR ordered however not resulted. Patient states they try to get blood and were unable to. Objective Vital Signs/Intake & Output: Vital Signs 05/05/18 15:43 05/05/18 16:17 05/05/18 20:00 Temperature 98.2 F 98.3 F Pulse Rate 72 70 Respiratory Rate 16 17 18 Blood Pressure 104/59 L 97/54 L Pulse Oximetry 98 100 05/05/18 22:02 05/06/18 00:00 05/06/18 07:39 Temperature 97.9 F 98.3 F Pulse Rate 83 73 Respiratory Rate 18 18 18 Blood Pressure 116/57 L 103/60 Pulse Oximetry 99 99 05/06/18 08:00 05/06/18 11:30 Temperature 98.1 F 98.9 F Pulse Rate 93 H 75 Respiratory Rate 19 17 Blood Pressure 159/95 H 125/68 Pulse Oximetry 100 100 Intake & Output 05/05/18 05/06/18 05/06/18 18:59 06:59 18:59 Intake Total 2310 / 2310 1000 / 1000 1999 / 1999 Output Total 1000 / 1000 900 / 900 100 / 100 Balance 1310 / 1310 100 / 100 1900 / 1900 Weight 83.2 kg Intake: IV 1110 / 1110 1000 / 1000 1999 / 1999 NS Inj 1,000 ML @ 125 mls/hr IV 1000 / 1000 1000 / 1000 1999 / 1999 .CONT .Q8H [facility] Rx#:[id number] Calcium Gluconate Inj 1 GM In 110 / 110 D5W Inj 100 ML @ 110 mls/hr IV. SIG ONCE ONE Rx#:[id number] Oral 1200 / 1200 Output: Urine 1000 / 1000 900 / 900 100 / 100 Other: Date of Last Bowel Movement 05/04/18 # Bowel Movements 0 Result Diagrams: 05/07/18 06:41 05/06/18 12:18 Laboratory Results: Laboratory Results - last 24 hr 05/01/18 05/06/18 05/06/18 10:29 06:48 12:18 Sodium 141 Potassium 3.9 Chloride 108 H Carbon Dioxide 25.1 Anion Gap 8 BUN 5 L Creatinine 0.69 Estimated GFR Greater than 89 Random Glucose 111 H Calcium 7.5 L Total Bilirubin 7.6 H AST 300 H ALT 157 H Alkaline Phosphatase 123 H Ammonia 136 H Total Protein 6.7 D Albumin 1.6 L Hep B DNA Qnt log IU/mL 4.91 H Hep B DNA (IU/mL) 42782 H HCV RNA (PCR) IUs/ml HCV RNA PCR log IUs/ml Culture Results: Microbiology 04/30/18 11:05 Urine Culture - Final Random Urine Shante glabrata Imaging Studies: Impressions Abdomen X-Ray 05/06/18 00:00 CONCLUSION: Double-J stent in good position on the right. Large right staghorn calculus. Medications: Active Medications Generic Name Dose Route Start Last Admin Trade Name Freq PRN Reason Stop Dose Admin Artificial Tears 1 drop 05/04/18 13:00 05/05/18 09:47 Refresh Tears 0.5% Opth Drops EACH EYE 1 drop TID PRN Administration DRY EYE(S) Ferrous Sulfate 325 mg 04/30/18 17:00 05/06/18 11:31 Ferosul PO 325 mg BID@1200,1700 [facility] Administration Fluconazole 200 mg 05/05/18 15:00 05/06/18 08:57 Diflucan PO 200 mg DAILY NIRAJ Administration Furosemide 20 mg 05/02/18 09:00 05/06/18 08:57 Lasix PO 20 mg DAILY NIRAJ Administration Sodium Chloride 1,000 mls @ 125 mls/hr 04/29/18 06:30 05/06/18 13:35 Ns Inj IV.CONT 125 mls/hr .Q8H [facility] Administration Lactulose 30 ml 04/29/18 06:28 05/05/18 20:49 Lactulose Liq PO 30 ml DAILY PRN Administration SEVERE CONSITIPATION Lactulose 30 ml 05/05/18 18:00 05/06/18 12:21 Lactulose Liq PO 30 ml QID NIRAJ Administration Morphine Sulfate 2 mg 04/29/18 09:36 05/06/18 08:58 Morphine Inj IV.PUSH 2 mg Q4H PRN Administration PAIN 2-10 IF CANT TAKE PO Pantoprazole Sodium 40 mg 05/02/18 09:00 05/06/18 08:58 Protonix PO 40 mg DAILY NIRAJ Administration Potassium Chloride 20 meq 05/04/18 09:00 05/06/18 08:57 K-Dur PO 20 meq DAILY NIRAJ Administration Sodium Chloride 2 ml 04/29/18 09:00 05/06/18 08:58 Ns Flush IV.FLUSH 2 ml BID NIRAJ Administration Sodium Chloride 2 ml 04/29/18 06:49 05/05/18 16:16 Ns Flush IV.FLUSH 2 ml PRN PRN Administration FLUSH AFTER USING IV ACCESS Objective Remarks: GENERAL: Chronically ill-appearing male patient, in no acute distress. SKIN: + Jaundice, warm and dry. Ecchymosis to left shoulder and arm. HEAD: Normocephalic. EYES: + scleral icterus. No injection or drainage. NECK: Supple, trachea midline. CARDIOVASCULAR: Regular rate and rhythm 3/6 systolic murmur aortic listening area. RESPIRATORY: Breath sounds equal bilaterally. Non-labored at rest. GASTROINTESTINAL: Abdomen soft, non-tender, nondistended. +BS. EXTREMITIES: No cyanosis, or edema. Chronic discoloration to bilateral lower extremities. MUSCULOSKELETAL: Adequate muscle tone. NEUROLOGICAL: No obvious focal deficit. Awakens to voice, and oriented x3. + tremor PSYCHIATRIC: Appropriate mood and affect; insight and judgment normal. Assessment/Plan - Plan Mr. Valadez is a pleasant 58-year-old gentleman with a history of hepatitis C and cirrhosis, recently diagnosed with hepatitis B. patient was transferred here from [facility] for urology care. He was diagnosed with a ureteral calculus with obstruction. Hematology was consulted for pancytopenia. Plan: 1. Pancytopenia, hgb and platelets had increased slightly yesterday. CBC is pending today. 2. DIC, pt with prolonged PT and APTT, low fibrinogen and a high d-dimer. Likely contributing to this is his underlying liver disease and splenomegaly. There are no obvious signs of bleeding at this time. CTA was negative for pulmonary embolism. Venous ultrasound showed a small echogenic focus within the right popliteal vein, consistent with possible minimal residual nonocclusive thrombus. Coags are pending today. 3. Possible minimal residual nonocclusive thrombus in the right popliteal vein. No edema noted in the right leg. Patient's INR was 2.2, not on any anticoagulation. Given his low platelet count and elevated INR, anticoagulation is not warranted at this time. coags are pending today. 4. Cirrhosis, with hepatitis B and C. Gastroenterology is managing. Ammonia level decreased to 136, patient on lactulose. 5. UTI and staghorn calculus, management per urology and attending. 6. Continue to monitor for bleeding. Repeat CBC, coags and fibrinogen tomorrow. - Attending Statement Mr. Valadez is seen in Rm 171. He has moderate right calf tenderness and a repeat US doppler ordered to R/o DVT. Will follow up. If there is further drop in his counts, he will need a bone marrow bx. Discussed with pt.
[2018-05-06 15:11] LABS: Baso % (Auto) 0.9 % (0.0-2.0); Eos # (Auto) 0.1 th/mm3 (0.0-0.4); Hematocrit 28.6 % (39.0-51.0); Hemoglobin 9.9 gm/dL (13.0-17.0); Lymph # (Auto) 0.5 th/mm3 (1.0-4.8); Lymph % (Auto) 17.4 % (9.0-44.0); Mean Corpuscular HGB Conc 34.5 % (32.0-36.0); Mean Corpuscular Volume 107.3 fL (80.0-100.0); Mean Platelet Volume 8.5 fL (7.0-11.0); Mono # (Auto) 0.2 th/mm3 (0.0-0.9); Mono % (Auto) 6.9 % (0.0-8.0); Neut # (Auto) 1.9 th/mm3 (1.8-7.7); Neut % (Auto) 72.8 % (16.0-70.0); Platelet Count 44 th/mm3 (150-450); Red Blood Count 2.67 mil/mm3 (4.50-5.90); Red Cell Distribution Width 18.1 % (11.6-17.2); White Blood Count 2.7 th/mm3 (4.0-11.0)
[2018-05-06 15:27] LABS: INR 2.3 Ratio
[2018-05-06 16:43] LABS: Platelet Morphology Normal (Normal)
[2018-05-06] MEDS: Tenofovir 300 MG Tablet PO SCH (17:45)
--- NOTE | 2018-05-06 19:56 | US ---
EXAM DATE: 05/06/2018 12:00 AM EDT AGE/SEX: 58 years / Male INDICATIONS: Right leg pain. CLINICAL DATA: This is the patient's subsequent encounter. Patient reports that signs and symptoms h ave been present for 3 days and indicates a pain score of 9/10. MEDICAL/SURGICAL HISTORY: . Hep. C. Kidney stone. Cholecystectomy. COMPARISON: [facility] [place] VENOUS DOPPLER LEG BI, 05/04/2018. . TECHNIQUE: Venous ultrasound of both lower extremities was performed from the inguinal ligament to t he proximal calf. Real-time, color Doppler and spectral tracing, compression and augmentation techni ques were used. FINDINGS: There is a focal filling defect in the right popliteal vein that is likely a nonocclusive clot. Other venous tributaries of the right lower extremity are patent. CONCLUSION: 1. The tiny nonocclusive thrombus of the right popliteal vein is unchanged. 2. Otherwise negative. Electronically signed by: Nabor Marcum MD 05/06/2018 7:55 PM EDT
[2018-05-07] MEDS: Morphine Sulfate Inj 2 MG/ML Vial IV.PUSH PRN ×5 (02:01→22:21)
[2018-05-07] MEDS: Sod Chloride 0.9% Inj 1,000 ML IV.CONT SCH ×4 (02:02→22:17)
[2018-05-07 07:59] LABS: Baso % (Auto) 0.9 % (0.0-2.0); Eos # (Auto) 0.1 th/mm3 (0.0-0.4); Eos % (Auto) 3.8 % (0.0-4.0); Hematocrit 26.3 % (39.0-51.0); Hemoglobin 9.2 gm/dL (13.0-17.0); Lymph # (Auto) 0.4 th/mm3 (1.0-4.8); Lymph % (Auto) 29.1 % (9.0-44.0); Mean Corpuscular HGB Conc 34.9 % (32.0-36.0); Mean Corpuscular Hemoglobin 37.1 pg (27.0-34.0); Mean Corpuscular Volume 106.3 fL (80.0-100.0); Mono # (Auto) 0.1 th/mm3 (0.0-0.9); Mono % (Auto) 8.8 % (0.0-8.0); Neut # (Auto) 0.9 th/mm3 (1.8-7.7); Neut % (Auto) 57.4 % (16.0-70.0); Platelet Count 37 th/mm3 (150-450); Red Blood Count 2.47 mil/mm3 (4.50-5.90); Red Cell Distribution Width 17.2 % (11.6-17.2); White Blood Count 1.5 th/mm3 (4.0-11.0)
[2018-05-07] MEDS: Furosemide 20 MG Tablet PO SCH (08:04)
[2018-05-07] MEDS: Tenofovir 300 MG Tablet PO SCH (08:05)
[2018-05-07] MEDS: Sodium Chloride 0.9% 2 ML Flush BID IV.FLUSH SCH ×2 (08:06→22:17)
[2018-05-07 08:48] LABS: Activated Partial Thrombo Time 48.3 sec (24.3-30.1); INR 2.4 Ratio; Prothrombin Time 23.9 sec (9.8-11.6)
[2018-05-07 08:49] LABS: Ovalocytes 1+; Platelet Morphology Normal (Normal); Tear Drop Cells 1+
--- NOTE | 2018-05-07 11:17 | P.PN ---
Subjective Interval history: Follow-up visit for abdominal pain, UTI, pancytopenia liver cirrhosis and hepatitis. Patient seen and examined in bed appears to be in no acute distress. Reports dysuria as he is finishing urinating. He denies any nausea, vomiting, diarrhea, cough, shortness of breath or chest pain. Discussed with patient abnormal lab findings. Tearful and states "I wish I could go to sleep" . Patient is visibly sad but states "I do not want to hurt anyone" denies wanting to hurt himself either. Patient voices frustration over the fact that this is been an ongoing process. Physical Exam Vital signs: Vital Signs 05/06/18 11:30 05/06/18 16:00 05/06/18 19:47 Temperature 98.9 F 98.0 F 98.4 F Pulse Rate 75 66 81 Respiratory Rate 17 16 16 Blood Pressure 125/68 121/56 L 99/57 L Pulse Oximetry 100 97 96 05/07/18 00:00 Temperature 98.5 F Pulse Rate 75 Respiratory Rate 16 Blood Pressure 103/63 Pulse Oximetry 99 Intake & Output 05/06/18 05/07/18 05/07/18 18:59 06:59 18:59 Intake Total 2700 / 2700 2900 / 2900 1000 / 1000 Output Total 100 / 100 200 / 200 Balance 2600 / 2600 2900 / 2900 800 / 800 Weight 84.3 kg Intake: IV 1999 / 1999 1999 / 1999 1000 / 1000 NS Inj 1,000 ML @ 125 mls/hr IV 1999 / 1999 1999 / 1999 1000 / 1000 .CONT .Q8H [facility] Rx#:[id number] Oral 700 / 700 900 / 900 Output: Urine 100 / 100 200 / 200 Other: # Voids 4 3 # Bowel Movements 1 Narrative: GENERAL: Well-developed, well-nourished male resting in bed. SKIN: Warm and dry. HEENT: Scleral jaundice, pupils equal round reactive, mucous membranes pink and moist. NECK: Supple no JVD. HEART: Rhythm without murmurs. LUNGS: Breath sounds equal bilaterally without wheezing, crackles or rhonchi. ABDOMEN: +BS, soft, positive bowel sounds in all quadrants. Tenderness to RLQ EXTREMITIES: Left upper extremity scattered ecchymosis. Bilateral lower extremity vascular discoloration noted with trace edema. NEURO: Awake and alert. PSYCH: Appropriate mood and affect, tearful during my conversation with him today. Results - Labs CBC & Chem 7: 05/07/18 06:41 05/06/18 12:18 Laboratory Results - last 24 hr 05/06/18 05/06/18 05/06/18 12:18 14:38 14:38 WBC 2.7 L RBC 2.67 L Hgb 9.9 L Hct 28.6 L MCV 107.3 H MCH 37.0 H MCHC 34.5 RDW 18.1 H Plt Count 44 L D MPV 8.5 Prelim Diff (Auto) Slide review pending Neut % (Auto) 72.8 H Lymph % (Auto) 17.4 [place] % (Auto) 6.9 Eos % (Auto) 2.0 Baso % (Auto) 0.9 Neut # (Auto) 1.9 Lymph # (Auto) 0.5 L [place] # (Auto) 0.2 Eos # (Auto) 0.1 Baso # (Auto) 0.0 WBC Differential . Diff Scan Auto diff confirmed Differential Comment . Platelet Estimate Low L Platelet Morphology Normal Tear Drop Cells Ovalocytes PT 23.0 H INR 2.3 APTT Fibrinogen Sodium 141 Potassium 3.9 Chloride 108 H Carbon Dioxide 25.1 Anion Gap 8 BUN 5 L Creatinine 0.69 Estimated GFR Greater than 89 Random Glucose 111 H Calcium 7.5 L Total Bilirubin 7.6 H AST 300 H ALT 157 H Alkaline Phosphatase 123 H Total Protein 6.7 D Albumin 1.6 L 05/07/18 05/07/18 06:41 06:41 WBC 1.5 L RBC 2.47 L Hgb 9.2 L Hct 26.3 L MCV 106.3 H MCH 37.1 H MCHC 34.9 RDW 17.2 Plt Count 37 L MPV 9.0 Prelim Diff (Auto) Slide review pending Neut % (Auto) 57.4 Lymph % (Auto) 29.1 [place] % (Auto) 8.8 H Eos % (Auto) 3.8 Baso % (Auto) 0.9 Neut # (Auto) 0.9 L Lymph # (Auto) 0.4 L [place] # (Auto) 0.1 Eos # (Auto) 0.1 Baso # (Auto) 0.0 WBC Differential . Diff Scan Auto diff confirmed Differential Comment . Platelet Estimate Low L Platelet Morphology Normal Tear Drop Cells 1+ H Ovalocytes 1+ H PT 23.9 H INR 2.4 APTT 48.3 H Fibrinogen 54 L* Sodium Potassium Chloride Carbon Dioxide Anion Gap BUN Creatinine Estimated GFR Random Glucose Calcium Total Bilirubin AST ALT Alkaline Phosphatase Total Protein Albumin - Imaging Impressions Abdomen X-Ray 05/06/18 00:00 CONCLUSION: Double-J stent in good position on the right. Large right staghorn calculus. Venous Doppler Study 05/06/18 00:00 CONCLUSION: 1. The tiny nonocclusive thrombus of the right popliteal vein is unchanged. 2. Otherwise negative. Assessment and Plan - Plan 58 YOWM with history of Hep B, Hep C, and liver cirrhosis admitted on 04/29 after being transferred from [facility] for staghorn renal calculus complicated by UTI. 1. Nephrolithiasis with UTI CT scan done at [facility] showing a 3.5 cm staghorn calculus in the right kidney with associated UTI. Patient was transferred to [place] for on- call urology Urology consulted. No acute intervention needed but patient will need a PCNL in the future as an outpatient Reviewed U/A from [place] on 04/28 which showed + nitrite, + leukocytes, + bacteria and yeast, and final urine culture resulted on 05/01 showed no growth Urine culture from 04/30 done at [place] growing Shante glabrata Stop Zosyn and change IV Diflucan to PO with plan to treat for a total of 2 weeks -She reports dysuria towards the end of urination, recheck UA 2. Pancytopenia Slight improvement in WBCs, H&H and platelets HIV negative Heme/onc following, concern for possible DIC given prolonged PT and APTT, low fibrinogen, and elevated D-dimer Ultrasound of the spleen showed splenomegaly with prominent central splenic veins that may reflect portal hypertension given history of cirrhosis Remains hemodynamically stable (BPs have been low entire admission, patient not tachycardic, diaphoretic, short of breath, etc.). Continue to monitor CBC No active bleeding though patient having some bruising. Monitor for active bleeding or hemodynamic instability -Hematology/oncology plans to recheck fibrinogen level tomorrow 3. Liver cirrhosis/HCV/HBV With associated elevated LFTs, bilirubin, coagulopathy, hyperammonemia, and hypoalbuminemia History of heavy alcohol abuse but quit 5 years ago S/p treatment with Harvoni and recently tenofovir was prescribed with diagnosis of hepatitis B the patient was apparently not compliant Previously worked up in [facility] for liver transplant 2016 but unfortunately was not a candidate due to social issues and lack of support Last EGD and colonoscopy in November 2016, portal hypertensive gastropathy noted on EGD otherwise both exams were normal GI following HBV DNA quantitative log elevated, Hep B DNA elevated, Hep B & core IgM antibody reactive, hep C IgG reactive. - GI recommends follow-up as outpatient in clinic when discharged. Continue spironolactone, Lasix, lactulose -Lactulose QID, ammonia slightly improved to 136. - Tbili higher at 7.6 with LFT's increased, INR 2.4 -Avoid hepatotoxins, continue to monitor INR and LFTs 4. Coagulopathy/possible DIC -INR continuing to increase today 2.4 - Fibrinogen dropped again to 54, PLTS still low at 37 - Hem/onc. following 5. Hypokalemia Continue KCl PO 20 mEq daily 6. Dry eyes Exam is nonrevealing Continue refresh eyedrops TID PRN DVT prophylaxis: holding chemical anticoagulation given coagulopathy and elevated INR, thrombocytopenia Patient tearful and emotional today during my visit when I discussed his lab work. Consult wound care to assist with goals, discussed with patient and he is agreeable. Discussed Condition With: Patient and maker up folding Planning: Pending Hem/onc clearance and GI clearance. Patient is homeless however does have a friend who he is agreeable to stay with once discharged.
[2018-05-07] MEDS: Ferrous Sulfate 325 MG Tablet PO SCH ×2 (11:49→17:15)
--- NOTE | 2018-05-07 13:12 | P.PNGI ---
Subjective Interval history: Patient resting in bed sitting up having lunch meal. States he is tolerating diet well without nausea or vomiting. Awake alert and oriented, endorsing generalized fatigue. <Kely Lloyd - Last Filed: 05/07/18 13:12> Physical Exam Vital signs: Vital Signs 05/06/18 16:00 05/06/18 19:47 05/07/18 00:00 Temperature 98.0 F 98.4 F 98.5 F Pulse Rate 66 81 75 Respiratory Rate 16 16 16 Blood Pressure 121/56 L 99/57 L 103/63 Pulse Oximetry 97 96 99 Intake & Output 05/06/18 05/07/18 05/07/18 18:59 06:59 18:59 Intake Total 2700 / 2700 2900 / 2900 1000 / 1000 Output Total 100 / 100 200 / 200 Balance 2600 / 2600 2900 / 2900 800 / 800 Weight 84.3 kg Intake: IV 1999 / 1999 1000 / 1000 NS Inj 1,000 ML @ 125 mls/hr IV 1999 / 1999 1000 / 1000 .CONT .Q8H [facility] Rx#:[id number] Oral 700 / 700 900 / 900 Output: Urine 100 / 100 200 / 200 Other: # Voids 4 3 # Bowel Movements 1 - Constitutional no acute distress - Routine HEENT Exam Head: Present: normocephalic Eye: Present: conjunctival icterus - Routine Neck Exam Present: supple - Routine Respiratory Exam Present: CTA bilaterally. Absent: accessory muscle use - Routine Cardiovascular Exam Present: RRR - Routine Abdominal Exam Present: soft, normoactive bowel sounds, distended. Absent: tenderness, guarding, firm - Routine Extremities Exam Present: edema, full ROM, pulses intact. Absent: cyanosis, clubbing - Routine Skin Exam Present: dry, warm, jaundice - Routine Neurological Exam Present: alert, oriented X3 - Detailed Neurological Exam: Coma Scale Eye Opening: Spontaneous Verbal Response: Oriented Motor Response: Obey commands Trell Coma Scale Total: 15 - Routine Psychiatric Exam Present: normal affect, cooperative <Kely Lloyd - Last Filed: 05/07/18 13:12> Vital signs: Vital Signs 05/06/18 19:47 05/07/18 00:00 05/07/18 08:00 Temperature 98.4 F 98.5 F 97.9 F Pulse Rate 81 75 80 Respiratory Rate 16 16 18 Blood Pressure 99/57 L 103/63 113/56 L Pulse Oximetry 96 99 100 05/07/18 12:00 05/07/18 16:00 Temperature 98.1 F 98.0 F Pulse Rate 74 72 Respiratory Rate 18 17 Blood Pressure 110/54 L 117/69 Pulse Oximetry 99 100 Intake & Output 05/06/18 05/07/18 05/07/18 18:59 06:59 18:59 Intake Total 2700 / 2700 2900 / 2900 1720 / 1720 Output Total 100 / 100 1000 / 1000 Balance 2600 / 2600 2900 / 2900 720 / 720 Weight 84.3 kg Intake: IV 1999 1000 / 1000 NS Inj 1,000 ML @ 125 mls/hr IV 1999 1000 / 1000 .CONT .Q8H [facility] Rx#:[id number] Oral 700 / 700 900 / 900 720 / 720 Output: Urine 100 / 100 1000 / 1000 Other: # Voids 4 3 # Bowel Movements 1 0 <Case Castro E - Last Filed: 05/07/18 17:18> Results - Labs CBC & Chem 7: 05/07/18 06:41 05/06/18 12:18 Laboratory Results - last 24 hr 05/06/18 05/06/18 05/06/18 12:18 14:38 14:38 WBC 2.7 L RBC 2.67 L Hgb 9.9 L Hct 28.6 L MCV 107.3 H MCH 37.0 H MCHC 34.5 RDW 18.1 H Plt Count 44 L D MPV 8.5 Prelim Diff (Auto) Slide review pending Neut % (Auto) 72.8 H Lymph % (Auto) 17.4 [place] % (Auto) 6.9 Eos % (Auto) 2.0 Baso % (Auto) 0.9 Neut # (Auto) 1.9 Lymph # (Auto) 0.5 L [place] # (Auto) 0.2 Eos # (Auto) 0.1 Baso # (Auto) 0.0 WBC Differential . Diff Scan Auto diff confirmed Differential Comment . Platelet Estimate Low L Platelet Morphology Normal Tear Drop Cells Ovalocytes PT 23.0 H INR 2.3 APTT Fibrinogen Total Bilirubin 7.6 H Alkaline Phosphatase 123 H Total Protein 6.7 D 05/07/18 05/07/18 06:41 06:41 WBC 1.5 L RBC 2.47 L Hgb 9.2 L Hct 26.3 L MCV 106.3 H MCH 37.1 H MCHC 34.9 RDW 17.2 Plt Count 37 L MPV 9.0 Prelim Diff (Auto) Slide review pending Neut % (Auto) 57.4 Lymph % (Auto) 29.1 [place] % (Auto) 8.8 H Eos % (Auto) 3.8 Baso % (Auto) 0.9 Neut # (Auto) 0.9 L Lymph # (Auto) 0.4 L [place] # (Auto) 0.1 Eos # (Auto) 0.1 Baso # (Auto) 0.0 WBC Differential . Diff Scan Auto diff confirmed Differential Comment . Platelet Estimate Low L Platelet Morphology Normal Tear Drop Cells 1+ H Ovalocytes 1+ H PT 23.9 H INR 2.4 APTT 48.3 H Fibrinogen 54 L* Total Bilirubin Alkaline Phosphatase Total Protein - Imaging Impressions Abdomen X-Ray 05/06/18 00:00 CONCLUSION: Double-J stent in good position on the right. Large right staghorn calculus. Venous Doppler Study 05/06/18 00:00 CONCLUSION: 1. The tiny nonocclusive thrombus of the right popliteal vein is unchanged. 2. Otherwise negative. <Kely Lloyd - Last Filed: 05/07/18 13:12> - Labs CBC & Chem 7: 05/07/18 06:41 05/06/18 12:18 Laboratory Results - last 24 hr 05/07/18 05/07/18 06:41 06:41 WBC 1.5 L RBC 2.47 L Hgb 9.2 L Hct 26.3 L MCV 106.3 H MCH 37.1 H MCHC 34.9 RDW 17.2 Plt Count 37 L MPV 9.0 Prelim Diff (Auto) Slide review pending Neut % (Auto) 57.4 Lymph % (Auto) 29.1 [place] % (Auto) 8.8 H Eos % (Auto) 3.8 Baso % (Auto) 0.9 Neut # (Auto) 0.9 L Lymph # (Auto) 0.4 L [place] # (Auto) 0.1 Eos # (Auto) 0.1 Baso # (Auto) 0.0 WBC Differential . Diff Scan Auto diff confirmed Differential Comment . Platelet Estimate Low L Platelet Morphology Normal Tear Drop Cells 1+ H Ovalocytes 1+ H PT 23.9 H INR 2.4 APTT 48.3 H Fibrinogen 54 L* - Imaging Impressions Venous Doppler Study 05/06/18 00:00 CONCLUSION: 1. The tiny nonocclusive thrombus of the right popliteal vein is unchanged. 2. Otherwise negative. <Case Castro - Last Filed: 05/07/18 17:18> Assessment and Plan (1) Liver cirrhosis Status: Acute Code(s): K74.60 - Unspecified cirrhosis of liver (2) Hep C w/o coma, chronic Status: Acute Code(s): B18.2 - Chronic viral hepatitis C - Plan 05/07/18-Liver cirrhosis-most recent labs 05/06/2018 revealed total bilirubin of 7.6 AST of 300 ALT 157 alkaline phosphatase 123 ammonia level 136 albumin 1.6. Discussed liver function with the patient who is aware of worsening values. We will continue to monitor. Chronic hepatitis C/acute hepatitis B-patient with history of chronic hepatitis C currently restarted on antiviral for same (Tenofovir). Patient denies any known reason for pablo acute hepatitis B. Discussed precautions with patient as well as risk factors and he verbalizes understanding. Plan: -Cardiac diet as tolerated -Continue lactulose as ordered -Continue to monitor liver function tests -Avoid hepatotoxins -Monitor for any change in mental status-hepatic encephalopathy -Monitor ammonia levels -Monitor for bleeding -As per discussion with attending palliative care for consult -Supportive care -Further recommendations to follow This patient has been seen by myself and Dr. Castro in this note is written on his behalf - Attending Attestation Dr. Castro <Kely Lloyd - Last Filed: 05/07/18 13:12> (1) Liver cirrhosis Status: Acute Code(s): K74.60 - Unspecified cirrhosis of liver (2) Hep C w/o coma, chronic Status: Acute Code(s): B18.2 - Chronic viral hepatitis C - Plan Patient seen and examined Agree with above Continue with current supportive care Monitor labs Poor prognosis overall <Case Castro - Last Filed: 05/07/18 17:18> <Kely Lloyd - Last Filed: 05/07/18 13:12> (1) Liver cirrhosis Qualifiers: Hepatic cirrhosis type: other cirrhosis Qualified Code(s): K74.69 - Other cirrhosis of liver <Case Castro - Last Filed: 05/07/18 17:18> (1) Liver cirrhosis Qualifiers: Hepatic cirrhosis type: other cirrhosis Qualified Code(s): K74.69 - Other cirrhosis of liver
--- NOTE | 2018-05-07 13:53 | P.PNONC ---
Subjective Interval history: Afebrile Patient sitting in bed occasionally wincing Denies any bleeding Reports pain of "9" in his right lower abdomen Eating is so-so Objective Vital Signs/Intake & Output: Vital Signs 05/06/18 16:00 05/06/18 19:47 05/07/18 00:00 Temperature 98.0 F 98.4 F 98.5 F Pulse Rate 66 81 75 Respiratory Rate 16 16 16 Blood Pressure 121/56 L 99/57 L 103/63 Pulse Oximetry 97 96 99 Intake & Output 05/06/18 05/07/18 05/07/18 18:59 06:59 18:59 Intake Total 2700 / 2700 2900 / 2900 1000 / 1000 Output Total 100 / 100 200 / 200 Balance 2600 / 2600 2900 / 2900 800 / 800 Weight 185 lb 13.595 oz Intake: IV 1999 / 1999 1999 / 1999 1000 / 1000 NS Inj 1,000 ML @ 125 mls/hr IV 1999 / 1999 1999 / 1999 1000 / 1000 .CONT .Q8H [facility] Rx#:[id number] Oral 700 / 700 900 / 900 Output: Urine 100 / 100 200 / 200 Other: # Voids 4 3 # Bowel Movements 1 Result Diagrams: 05/07/18 06:41 05/06/18 12:18 Laboratory Results: Laboratory Results - last 24 hr 05/06/18 05/06/18 05/07/18 14:38 14:38 06:41 WBC 2.7 L 1.5 L RBC 2.67 L 2.47 L Hgb 9.9 L 9.2 L Hct 28.6 L 26.3 L MCV 107.3 H 106.3 H MCH 37.0 H 37.1 H MCHC 34.5 34.9 RDW 18.1 H 17.2 Plt Count 44 L D 37 L MPV 8.5 9.0 Prelim Diff (Auto) Slide review pending Slide review pending Neut % (Auto) 72.8 H 57.4 Lymph % (Auto) 17.4 29.1 [place] % (Auto) 6.9 8.8 H Eos % (Auto) 2.0 3.8 Baso % (Auto) 0.9 0.9 Neut # (Auto) 1.9 0.9 L Lymph # (Auto) 0.5 L 0.4 L [place] # (Auto) 0.2 0.1 Eos # (Auto) 0.1 0.1 Baso # (Auto) 0.0 0.0 WBC Differential . . Diff Scan Auto diff confirmed Auto diff confirmed Differential Comment . . Platelet Estimate Low L Low L Platelet Morphology Normal Normal Tear Drop Cells 1+ H Ovalocytes 1+ H PT 23.0 H INR 2.3 APTT Fibrinogen 05/07/18 06:41 WBC RBC Hgb Hct MCV MCH MCHC RDW Plt Count MPV Prelim Diff (Auto) Neut % (Auto) Lymph % (Auto) [place] % (Auto) Eos % (Auto) Baso % (Auto) Neut # (Auto) Lymph # (Auto) [place] # (Auto) Eos # (Auto) Baso # (Auto) WBC Differential Diff Scan Differential Comment Platelet Estimate Platelet Morphology Tear Drop Cells Ovalocytes PT 23.9 H INR 2.4 APTT 48.3 H Fibrinogen 54 L* Imaging Studies: Impressions Abdomen X-Ray 05/06/18 00:00 CONCLUSION: Double-J stent in good position on the right. Large right staghorn calculus. Venous Doppler Study 05/06/18 00:00 CONCLUSION: 1. The tiny nonocclusive thrombus of the right popliteal vein is unchanged. 2. Otherwise negative. Medications: Active Medications Generic Name Dose Route Start Last Admin Trade Name Freq PRN Reason Stop Dose Admin Artificial Tears 1 drop 05/04/18 13:00 05/05/18 09:47 Refresh Tears 0.5% Opth Drops EACH EYE 1 drop TID PRN Administration DRY EYE(S) Ferrous Sulfate 325 mg 04/30/18 17:00 05/07/18 11:49 Ferosul PO 325 mg BID@1200,1700 [facility] Administration Fluconazole 200 mg 05/05/18 15:00 05/07/18 08:04 Diflucan PO 05/19/18 14:59 200 mg DAILY [facility] Administration Furosemide 20 mg 05/02/18 09:00 05/07/18 08:04 Lasix PO 20 mg DAILY [facility] Administration Sodium Chloride 1,000 mls @ 125 mls/hr 04/29/18 06:30 05/07/18 09:28 Ns Inj IV.CONT Infused .Q8H [facility] Infusion Lactulose 30 ml 04/29/18 06:28 05/05/18 20:49 Lactulose Liq PO 30 ml DAILY PRN Administration SEVERE CONSITIPATION Lactulose 30 ml 05/05/18 18:00 05/07/18 12:02 Lactulose Liq PO 30 ml QID [facility] Administration Morphine Sulfate 2 mg 04/29/18 09:36 05/07/18 10:30 Morphine Inj IV.PUSH 2 mg Q4H PRN Administration PAIN 2-10 IF CANT TAKE PO Pantoprazole Sodium 40 mg 05/02/18 09:00 05/07/18 08:05 Protonix PO 40 mg DAILY [facility] Administration Potassium Chloride 20 meq 05/04/18 09:00 05/07/18 08:05 K-Dur PO 20 meq DAILY [facility] Administration Sodium Chloride 2 ml 04/29/18 09:00 05/07/18 08:06 Ns Flush IV.FLUSH Not Given BID [facility] Sodium Chloride 2 ml 04/29/18 06:49 05/05/18 16:16 Ns Flush IV.FLUSH 2 ml PRN PRN Administration FLUSH AFTER USING IV ACCESS Tenofovir Disoproxil Fumarate 300 mg 05/06/18 18:00 05/07/18 08:05 Viread PO 300 mg DAILY [facility] Administration Objective Remarks: GENERAL: Chronically ill-appearing male patient, occasionally wincing throughout exam. SKIN: + Jaundice, warm and dry. Ecchymosis to left shoulder and arm. HEAD: Normocephalic. EYES: + scleral icterus. No injection or drainage. NECK: Supple, trachea midline. CARDIOVASCULAR: Regular rate and rhythm 3/6 systolic murmur aortic listening area. RESPIRATORY: Breath sounds equal bilaterally. Non-labored at rest. GASTROINTESTINAL: Abdomen soft. Tender to right lower quadrant. EXTREMITIES: No cyanosis, or edema. Venous stasis changes to bilateral lower extremities. MUSCULOSKELETAL: Generalized weakness NEUROLOGICAL: No obvious focal deficit. Awakens to voice, and oriented x3. + tremor Assessment/Plan - Plan Mr. Valadez is a pleasant 58-year-old gentleman with a history of hepatitis C and cirrhosis, recently diagnosed with hepatitis B. patient was transferred here from [facility] for urology care. He was diagnosed with a ureteral calculus with obstruction. Hematology was consulted for pancytopenia. Plan: 1. Pancytopenia largely unchanged. His platelet count is 37,000 today. He is not having any bleeding. Of note his fibrinogen is critically low at 54. Transfuse cryoprecipitate to prevent bleeding. 2. Possible minimal residual nonocclusive thrombus in the right popliteal vein. His INR has been chronically elevated to his liver disease. Along with the thrombocytopenia, no anticoagulation is warranted at this time. 3. Cirrhosis, with hepatitis B and C. Gastroenterology is managing. Patient continues on lactulose 4 times a day for his elevated ammonia level. 4. Continue to monitor for bleeding. Repeat CBC, coags and fibrinogen tomorrow.
[2018-05-07] MEDS ORDERED: Sodium Chlor 0.9% Inj 250 ML IV.SIG SCH (14:00)
--- NOTE | 2018-05-07 15:19 | P.CONPAL ---
Consult Service: Palliative Care Requesting Physician: Ashkan Xiong Reason for Consult: a. To assist with evaluation and management of symptoms including: Encephalopathy, pain b. To assist medical decision maker(s) with: better understanding of current medical conditions; weighing benefits/burdens of medical treatment options; making medical treatment decisions. Primary Care Provider: No Primary Care Physician History of Present Illness History of Present Illness: This 58-year-old patient who was transferred here to [facility] from [facility] in [place] on 04/29/18. There he had gone for evaluation of right-sided abdominal pain on 04/28. He also presented with constipation and dark urine. Abdominal CT indicative of portal hypertension changes, cirrhotic liver, and 3.5 cm staghorn calculus right kidney with possible mild duodenitis and cholelithiasis. + pancytopenia, + UTI - started on zosyn IV. He was transferred to [place] due to staghorn calculus w concomitant infection, and requiring a urologist evaluation. also noted to have chronic hep C, cirrhosis, stable. * urology consulted. Noted difficult to obtain additional urology history, apparently patient had stones in the past some which passed some which required surgery. He indicated he had known about current calculus for some time. Pain generally right upper quadrant which is more r/t liver than to stone. Urology recommends continue medical tx as indicated for other medical issues. would need to be stable for any stone procedure. No acute intervention indicated. May need PCNL in the future for stone as outpatient. Will need to follow-up outpatient with urology. * CTA obtained 04/30--negative for PE. Tiny right pleural effusion. * Spleen ultrasound 04/30--splenomegaly measuring 19 cm. Prominent central splenic veins. This may reflect portal hypertension possibly splenorenal collaterals in patient with history of cirrhosis * Heme oncology consulted: Patient with known history hep C, cirrhosis p.o. mild to moderate pancytopenia without evidence of sepsis or bleeding. Appears to be chronic cytopenia secondary to splenomegaly possible cirrhosis. Rule out DIC with PT, d-dimer fibrinogen. Likely infection contributing to thrombocytopenia does not appear clinically significant. Does not need any specific therapy for cytopenias currently. Will follow with splenic ultrasound. No platelets indicated at this time unless planned for invasive procedures. * GI consulted: Patient apparently underwent treatment with [facility] years ago for hep C. Had also previously been worked up by [facility] for liver transplant in 2017, however apparently due to social issues and lack of support was not a candidate for transplant. No recent alcohol use though reports previously trying, stopped 5 years ago. Recently noted to be in [place] where he had been hospitalized though was unable to provide any additional detail. Also reported to be taking recommended medications though GI specialist that pill bottles prescribed March 25 appear to be full. He was on Tenofovir reportedly for hepatitis B. GI to follow. Monitor LFTs. Check ammonia. Hep B, C serologies pending. HIV serology is also pending. * Patient with prolonged PT, APTT low fibrinogen dimer, this is likely being contributed by underlying liver disease no obvious signs of bleeding. Venous ultrasound ordered to rule out thrombosis. Patient remained stable. Venous ultrasound = small echogenic focus within the right popliteal vein, consistent with possible minimal residual nonocclusive thrombus. Per heme Given low platelet count and elevated INR, anticoagulation is not warranted at this time. * Continues to have mid right abdomen, right upper quadrant abdominal pain probable not GI related; felt may be related to kidney stones. LFTs downtrending. HIV serology negative. Hep B antigen reactive, hep C IgG reactive. Urine culture positive yeast, started on fluconazole. * 10/2 ammonia level elevated 164. Bilirubin increasing 5.6. AST 255. ALT 127. Lactulose increased by GI. GI notes May consider Entecavir for Hep B. * 10/4 worsening liver functions. Bilirubin uptrending 7.7, from 5. ALT 157. Albumin 1.5. Ammonia 136, down from 164. GI notes discussion with patient regarding worsening liver status. Patient with history of chronic hepatitis C, now with acute hepatitis B to be restarted on antiviral Tenofovir, patient denies known reason for pablo hepatitis B. Palliative care consulted to assist with clarification of goals of medical treatment. Patient seen in room no visitors present. Patient is alert, oriented though forgetful. Unable to tell me the hospital or city he is in does not remember being transferred here from [place]. He is oriented to the president some of his conditions names the month as June. Somewhat of a poor historian, seems to confuse details. He does indicate that he has family that he does not remain in close communication with. He indicates they do not believe his medical problems. He indicates he had a close friend of 30 years who recently became his roommate however they "kicked him out" in the days leading up to this current hospitalization because of "poor hygiene ". Attempt to explore with him goals, conditions. Limited exploration of this due to limited to poor insight. He understands he has liver disease. He speaks tangentially at times. He loses focus easily. He is very slow to answer questions. Rambling answers, at times tearful when referring to not communicating with his family. He does tell me he was evaluated at [facility] in the past however he was not a candidate however he later references that he might still be on a waiting list for liver. He asks me if he was "home to would they still take care of him and save him if he got worse", and would he "stay on the list."He denies any recent alcohol use tells me he never drank very much and he stopped drinking completely 5 or so years ago. He indicates he has been an intermittent smoker though most recently quit a few weeks ago. Denies any other drug use. Tells me he is not sure how he got hepatitis infections he thinks it is from tattoos in the 1980s "before autoclave ". He indicates he does have 7 siblings, 4 of them are stepsisters, and 3 brothers. He does not remain in close communication with them. He is not . He has no children. 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 Indicates he was working until current hospitalization. Function/Cognitive Trajectory: Previously lived independently, no assistance for ADLs. No reported cognitive deficits though patient currently poor historian Review of Systems other (Poor historian, forgetful though provides some history not clear how accura) Constitutional: Denies chills, Denies fatigue, Denies fever(s), Denies headache( s) Eyes: Reports dry eyes, Denies change in vision Ears, Nose, Mouth, and Throat: Denies mouth lesions, Denies mouth pain, Denies sore throat Cardiovascular: Denies chest pain, Denies shortness of breath Respiratory: Denies chest congestion, Denies cough, Denies shortness of breath Gastrointestinal: Reports abdominal pain, Reports excessive passing of gas, Denies bloating, Denies change in bowel habits, Denies cramping, Denies nausea, Denies pain with swallowing, Denies vomiting Genitourinary: Denies decreased urination, Denies difficulty urinating, Denies urinary frequency Musculoskeletal: Denies body aches, Denies muscle cramps Skin/Breast: Denies rash Neurologic: Denies loss of vision PMFSH - History History Provided By: Patient - Medical History Medical History: Medical History (Last Reviewed 05/07/18 @ 15:18 by GOMEZ Washington) Hx of hepatitis C Kidney stone Liver disease - Surgical History Surgical History: Surgical History (Last Reviewed 05/01/18 @ 14:52 by Mimi Mckinnon) Hx of cholecystectomy - Family History Family History: Family History (Last Reviewed 05/07/18 @ 15:18 by GOMEZ Washington) Other Diabetes Hypertension - Social History I have reviewed the patient's Social History: Yes - Tobacco History Second Hand Smoke Exposure: Yes Tobacco Use In Past 30 Days: Yes Smoking Status: Former smoker Tobacco Type: Cigarettes - Alcohol History How Often Do You Have a Drink Containing Alcohol: Monthly or less (prior heavy alcohol use.) - Substance Use History Substance History: No History of Abuse (Denies use) - Substance Use Type Marijuana Status: Active Route Used: By Mouth Reason for Use: Calm Down, Feels Good - Travel History Recent Travel in the [place] Within the Last 8 Weeks: No Recent Travel Out of the Country Within the Last 8 Weeks: No - Immunization History Tetanus Immunization: <5 Years Hx Influenza Vaccine This Season: Yes Medications and Allergies Active Medications: Active Medications Al Hydroxide/Mg Hydroxide (Milk Of Fay Sanders) 30 ml PO Q12H PRN PRN Reason: Mild Constipation Artificial Tears (Refresh Tears 0.5% Opth Drops) 1 drop EACH EYE TID PRN PRN Reason: DRY EYE(S) Last Admin: 05/05/18 09:47 Dose: 1 drop Bisacodyl (Dulcolax Supp) 10 mg RECTAL DAILY PRN PRN Reason: SEVERE CONSITIPATION Diphenhydramine HCl (Benadryl) 25 mg PO Q4H PRN PRN Reason: SEE LABEL COMMENTS Ferrous Sulfate (Ferosul) 325 mg PO BID@1200,1700 NIRAJ Last Admin: 05/07/18 11:49 Dose: 325 mg Fluconazole (Diflucan) 200 mg PO DAILY NIRAJ Stop: 05/19/18 14:59 Last Admin: 05/07/18 08:04 Dose: 200 mg Furosemide (Lasix) 20 mg PO DAILY [facility] Last Admin: 05/07/18 08:04 Dose: 20 mg Sodium Chloride (Ns Inj) 1,000 mls @ 125 mls/hr IV.CONT .Q8H [facility] Last Admin: 05/07/18 13:56 Dose: 125 mls/hr Sodium Chloride (Ns Inj) 250 mls @ 15 mls/hr IV.SIG ONCE [facility] Stop: 05/08/18 06:39 Lactulose (Lactulose Liq) 30 ml PO DAILY PRN PRN Reason: SEVERE CONSITIPATION Last Admin: 05/05/18 20:49 Dose: 30 ml Lactulose (Lactulose Liq) 30 ml PO QID [facility] Last Admin: 05/07/18 12:02 Dose: 30 ml Morphine Sulfate (Morphine Inj) 2 mg IV.PUSH Q4H PRN PRN Reason: PAIN 2-10 IF CANT TAKE PO Last Admin: 05/07/18 10:30 Dose: 2 mg Pantoprazole Sodium (Protonix) 40 mg PO DAILY [facility] Last Admin: 05/07/18 08:05 Dose: 40 mg Potassium Chloride (K-Dur) 20 meq PO DAILY [facility] Last Admin: 05/07/18 08:05 Dose: 20 meq Sennosides (Senokot) 17.2 mg PO Q12H PRN PRN Reason: Moderate Constipation Sodium Chloride (Ns Flush) 2 ml IV.FLUSH BID [facility] Last Admin: 05/07/18 08:06 Dose: Not Given Sodium Chloride (Ns Flush) 2 ml IV.FLUSH PRN PRN PRN Reason: FLUSH AFTER USING IV ACCESS Last Admin: 05/05/18 16:16 Dose: 2 ml Tenofovir Disoproxil Fumarate (Viread) 300 mg PO DAILY [facility] Last Admin: 05/07/18 08:05 Dose: 300 mg Allergies Allergy/AdvReac Type Severity Reaction Status Date / Time No Known Allergies Allergy Verified 04/29/18 06:05 Home Medications Medication Instructions Recorded Confirmed Type ciprofloxacin HCl [Cipro] 500 mg PO DAILY 05/01/18 05/01/18 History cyclobenzaprine 10 mg PO TID PRN 05/01/18 05/01/18 History duloxetine 30 mg PO DAILY 05/01/18 05/01/18 History fludrocortisone 0.1 mg PO BID 05/01/18 05/01/18 History furosemide 40 mg PO BID 05/01/18 05/01/18 History lactulose 10 g PO TID 05/01/18 05/01/18 History magnesium oxide 400 mg PO DAILY 05/01/18 05/01/18 History ondansetron HCl 4 mg PO Q6-8H PRN 05/01/18 05/01/18 History pantoprazole 40 mg PO BID 05/01/18 05/01/18 History potassium chloride 20 meq PO DAILY 05/01/18 05/01/18 History spironolactone 50 mg PO BID 05/01/18 05/01/18 History tamsulosin 0.4 mg PO DAILY 05/01/18 05/01/18 History tenofovir disoproxil fumarate 300 mg PO DAILY 05/01/18 05/01/18 History Advance Directives Advance Directives Date on File: 05/07/18 Healthcare Surrogate: Yes Health Care Surrogate Name and Number: Names brother Arley Vaaldez Power of Ent Consultant: No Today's verbally stated goals: Patient states he "wants to live "he wants to try to continue treatments to get better. Ethical and Legal Issues: Patient today mildly encephalopathic. Ammonia level elevated. Partially oriented. Appears capacitated enough to participate some in decision making but does not have full insight. He is able to designate healthcare surrogate names his brother Arley Valadez as someone he would trust to make decisions in an emergency. Physical Exam Vital Signs: Vital Signs - 24 hr 05/06/18 16:00 05/06/18 19:47 05/07/18 00:00 Temperature 98.0 F 98.4 F 98.5 F Pulse Rate 66 81 75 Respiratory Rate 16 16 16 Blood Pressure 121/56 L 99/57 L 103/63 Pulse Oximetry 97 96 99 05/07/18 08:00 05/07/18 12:00 Temperature 97.9 F 98.1 F Pulse Rate 80 74 Respiratory Rate 18 18 Blood Pressure 113/56 L 110/54 L Pulse Oximetry 100 99 I&O: Intake & Output 05/05/18 05/06/18 05/07/18 05/08/18 06:59 06:59 06:59 06:59 Intake Total 4010 / 4010 3310 / 3310 5600 / 5600 1000 / 1000 Output Total 1500 / 1500 1900 / 1900 100 / 100 200 / 200 Balance 2510 / 2510 1410 / 1410 5500 / 5500 800 / 800 Weight 82.6 kg 83.2 kg 84.3 kg Physical Exam: CONSTITUTIONAL/GENERAL: This is a chronically ill appearing male, flat TUBES/LINES/DRAINS: PIV uE. SKIN: No rashes, or lesions. Ecchymoses Lt anterior shoulder. + jaundiced. Skin warm/dry. HEAD: Atraumatic. Normocephalic. EYES: Pupils equal and round and reactive. Extraocular motions intact. + scleral icterus. No injection or drainage. Fundi not examined. ENT: Hearing grossly normal. Nose without bleeding or purulent drainage. Throat without visible erythema, exudates, masses, or lesions.MM dry NECK: Trachea midline. Supple, nontender. No palpable thyroid enlargement or nodularity. CARDIOVASCULAR: Regular rate and rhythm without murmur . No JVD. Peripheral pulses symmetric. Trace pedal edema. RESPIRATORY/CHEST: Symmetric, unlabored respirations. on room air. Clear to auscultation. Breath sounds equal bilaterally. GASTROINTESTINAL: Abdomen soft, mildly tender, +distended. ,+distended/slight splenomegaly . No guarding. Bowel sounds present. GENITOURINARY: Without palpable bladder distension. MUSCULOSKELETAL: Extremities without clubbing, cyanosis. No joint tenderness or effusion noted. No calf tenderness. chronic vascular discoloration visible to bilateral lower legs LYMPHATICS: No palpable cervical or supraclavicular adenopathy. NEUROLOGICAL: Awake , partially oriented x2. Forgetful, easily confused details. Rambling speech Poor historian. cooperative, follows commands. Moves all 4 extremities, able to reposition self in bed. PSYCHIATRIC: somewhat flat/encephalopathic, tearful at times Diagnostic Tests Laboratory: Laboratory Results - last 72 hr 05/01/18 05/05/18 05/05/18 10:29 06:45 06:45 WBC 1.5 L RBC 2.19 L Hgb 8.1 L Hct 23.7 L MCV 108.2 H MCH 37.0 H MCHC 34.2 RDW 17.4 H Plt Count 30 L MPV 7.9 Prelim Diff (Auto) Slide review pending Neut % (Auto) 61.2 Lymph % (Auto) 26.1 Evans % (Auto) 8.4 H Eos % (Auto) 3.6 Baso % (Auto) 0.7 Neut # (Auto) 0.9 L Lymph # (Auto) 0.4 L Evans # (Auto) 0.1 Eos # (Auto) 0.1 Baso # (Auto) 0.0 WBC Differential Manual diff final Diff Scan Seg Neuts % (Manual) 66 Band Neuts % (Manual) 1 Lymphocytes % (Manual) 23 Monocytes % (Manual) 5 Eosinophils % (Manual) 5 H Abs Neuts (Manual) 1.0 L Differential Comment . Platelet Estimate Low L Platelet Morphology Normal Tear Drop Cells Ovalocytes PT 22.3 H INR 2.2 APTT Fibrinogen Sodium Potassium Chloride Carbon Dioxide Anion Gap BUN Creatinine Estimated GFR Random Glucose Calcium Prot Corrected Calcium Total Bilirubin AST ALT Alkaline Phosphatase Ammonia Total Protein Albumin Hep B DNA Qnt log IU/mL 4.91 H Hep B DNA (IU/mL) 36720 H HCV RNA (PCR) IUs/ml HCV RNA PCR log IUs/ml 05/05/18 05/05/18 05/06/18 06:45 06:45 06:48 WBC RBC Hgb Hct MCV MCH MCHC RDW Plt Count MPV Prelim Diff (Auto) Neut % (Auto) Lymph % (Auto) Evans % (Auto) Eos % (Auto) Baso % (Auto) Neut # (Auto) Lymph # (Auto) Evans # (Auto) Eos # (Auto) Baso # (Auto) WBC Differential Diff Scan Seg Neuts % (Manual) Band Neuts % (Manual) Lymphocytes % (Manual) Monocytes % (Manual) Eosinophils % (Manual) Abs Neuts (Manual) Differential Comment Platelet Estimate Platelet Morphology Tear Drop Cells Ovalocytes PT INR APTT Fibrinogen Sodium 146 H Potassium 3.6 Chloride 110 H Carbon Dioxide 28.6 Anion Gap 7 BUN 4 L Creatinine 0.61 Estimated GFR Greater than 89 Random Glucose 81 Calcium 7.0 L* Prot Corrected Calcium 7.8 L Total Bilirubin 5.6 H AST 255 H ALT 127 H Alkaline Phosphatase 99 Ammonia 164 H 136 H Total Protein 5.5 L Albumin 1.4 L Hep B DNA Qnt log IU/mL Hep B DNA (IU/mL) HCV RNA (PCR) IUs/ml HCV RNA PCR log IUs/ml 05/06/18 05/06/18 05/06/18 12:18 14:38 14:38 WBC 2.7 L RBC 2.67 L Hgb 9.9 L Hct 28.6 L MCV 107.3 H MCH 37.0 H MCHC 34.5 RDW 18.1 H Plt Count 44 L D MPV 8.5 Prelim Diff (Auto) Slide review pending Neut % (Auto) 72.8 H Lymph % (Auto) 17.4 Evans % (Auto) 6.9 Eos % (Auto) 2.0 Baso % (Auto) 0.9 Neut # (Auto) 1.9 Lymph # (Auto) 0.5 L Evans # (Auto) 0.2 Eos # (Auto) 0.1 Baso # (Auto) 0.0 WBC Differential . Diff Scan Auto diff confirmed Seg Neuts % (Manual) Band Neuts % (Manual) Lymphocytes % (Manual) Monocytes % (Manual) Eosinophils % (Manual) Abs Neuts (Manual) Differential Comment . Platelet Estimate Low L Platelet Morphology Normal Tear Drop Cells Ovalocytes PT 23.0 H INR 2.3 APTT Fibrinogen Sodium 141 Potassium 3.9 Chloride 108 H Carbon Dioxide 25.1 Anion Gap 8 BUN 5 L Creatinine 0.69 Estimated GFR Greater than 89 Random Glucose 111 H Calcium 7.5 L Prot Corrected Calcium Total Bilirubin 7.6 H AST 300 H ALT 157 H Alkaline Phosphatase 123 H Ammonia Total Protein 6.7 D Albumin 1.6 L Hep B DNA Qnt log IU/mL Hep B DNA (IU/mL) HCV RNA (PCR) IUs/ml HCV RNA PCR log IUs/ml 05/07/18 05/07/18 06:41 06:41 WBC 1.5 L RBC 2.47 L Hgb 9.2 L Hct 26.3 L MCV 106.3 H MCH 37.1 H MCHC 34.9 RDW 17.2 Plt Count 37 L MPV 9.0 Prelim Diff (Auto) Slide review pending Neut % (Auto) 57.4 Lymph % (Auto) 29.1 Evans % (Auto) 8.8 H Eos % (Auto) 3.8 Baso % (Auto) 0.9 Neut # (Auto) 0.9 L Lymph # (Auto) 0.4 L Evans # (Auto) 0.1 Eos # (Auto) 0.1 Baso # (Auto) 0.0 WBC Differential . Diff Scan Auto diff confirmed Seg Neuts % (Manual) Band Neuts % (Manual) Lymphocytes % (Manual) Monocytes % (Manual) Eosinophils % (Manual) Abs Neuts (Manual) Differential Comment . Platelet Estimate Low L Platelet Morphology Normal Tear Drop Cells 1+ H Ovalocytes 1+ H PT 23.9 H INR 2.4 APTT 48.3 H Fibrinogen 54 L* Sodium Potassium Chloride Carbon Dioxide Anion Gap BUN Creatinine Estimated GFR Random Glucose Calcium Prot Corrected Calcium Total Bilirubin AST ALT Alkaline Phosphatase Ammonia Total Protein Albumin Hep B DNA Qnt log IU/mL Hep B DNA (IU/mL) HCV RNA (PCR) IUs/ml HCV RNA PCR log IUs/ml Result Diagrams: 05/08/18 04:56 05/08/18 04:56 Patient/Family Conference Family Conference Location: Bedside Issues Discussed: * Palliative care role, purpose, approach * Additional medical, psychosocial, and spiritual history * Patients general health, functional status, and cognitive changes in the months leading up to the current hospitalization * Patient/family understanding of the current medical problems * CODE STATUS briefly explored-he indicates he wants to try everything to live * Health care surrogate designation explored-he indicates he is estranged from most of his family but does still talk with his brother and request to meet his brother Arley healthcare surrogate, also requests I call him because "he will believe in medical provider about his conditions " * Palliative care contact information provided Limited discussion with patient as he is somewhat of a poor historian, forgetful at times. See HPI for additional detail. He has limited insight and understanding to his conditions. He easily loses focus and at one moment is telling me about being evaluated for transplant and then later asking me about if he is dying at home will he still be on the transplant list. Assessment and Plan - Disease Oriented Problem List (1) Hepatitis B infection (2) Staghorn renal calculus (3) Acute UTI (4) Liver cirrhosis (5) Hep C w/o coma, chronic Pertinent Non-Medical Issues: Psychosocial: Patient indicates originally from [place]. Did live in [place] for about a year but has since been in [place] for several years. 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 Has 7 siblings though does not remain in close communication with them. Spiritual: Spiritism, no particular affiliation. Requests shot coat tender visit, shot coat tender notified. Legal:Patient today mildly encephalopathic. Ammonia level elevated. Partially oriented. Appears capacitated enough to participate some in decision making but does not have full insight. He is able to designate healthcare surrogate names his brother Arley Valadez as someone he would trust to make decisions in an emergency. Would recommend shared decision making at this point given his fluctuating mental status. Ethical issues impacting care: No ethical issues identified Important Contacts: Brothgeovanny Valadez [phone] Prognosis: Patient is a poor historian, full medical history not readily available. Appears he has had some component of chronic liver disease, now with superimposed acute liver dysfunction. Hepatitis B, hepatitis C positive. Initiated on treatment here. Encephalopathic. Bilirubin trending up. Possible current acute disease process may be stable with ongoing aggressive treatment, though he remains high risk for ongoing if liver disease does not stabilize or respond to treatment then he may be appropriate for hospice. On the other hand if goals were comfort oriented and did not desire further aggressive interventions then would also be hospice appropriate. Code Status: Full Code Plan: Legal decision maker:Patient today mildly encephalopathic. Ammonia level elevated. Partially oriented. Appears capacitated enough to participate some in decision making but does not have full insight. He is able to designate healthcare surrogate names his brother Arley Valadez as someone he would trust to make decisions in an emergency. Would recommend shared decision making at this point given his fluctuating mental status. Goals: Patient goals right now are to continue treatment he "wants to live " . He has limited insight and understanding at this time. I attempted to reach his brother Arley today per his request, I left a voicemail with my contact information. Discussed with primary nurse, medical attending EDUARD CODE STATUS: Full code by default, and patient indicates that he would want life support if it will help him live SYMPTOMS: --Pain-has had some ongoing pain to right flank/abdomen indicates this was new onset at time of presentation to [facility]. He does endorse good relief with use of prn--indicates he had not previously been on any chronic opiates for chronic pain syndromes. Has been using 2 mg morphine IV about 3 times per day here, effective per patient report. Continue to monitor requirements/effectiveness. Cautious up titration given concern for lethargy, mental status w encephalopathy --Encephalopathy-patient with fluctuating mental status, hepatitis, bilirubin trending up. Ammonia level down to 136 though remains elevated. On lactulose. Partially oriented though forgetful, poor historian. Possible this may improve if liver functions improved. Palliative care will continue to follow during hospital course as condition evolves, to assist patient/decision-maker with understanding of medical conditions, weighing benefits/burdens of treatment options, for clarification of goals of treatment. Additionally will assist with any symptoms of palliative concern Appreciation Thank you for the opportunity to participate in the care of Feliberto Valadez. Attestation Attestation: To help prompt me to consider important information that might be impacting today's encounter and assessment, information from prior notes written by myself or my colleagues may have been "brought forward" into today's note. My signature on this note, however, is an attestation that I personally performed the exam, history, and/or decision-making noted today, and, unless otherwise indicated, the interactions with patient, family, and staff as well as the review of records all occurred today. I also attest that the listed assessment and stated plan reflect my best clinical judgment today based on the combination of historical information, prior notes, and today's exam/ interactions. When time spent is documented, it refers only to time spent today by the signer, or if indicated, combined time spent today by collaborating physician/nurse practitioner.
[2018-05-07 18:57] LABS: Bacteria,Urine Moderate /hpf; Bilirubin,Urine Small (Negative); Clarity,Urine Cloudy (Clear); Color,Urine Amber (Yellw/Straw); Glucose,Urine (UA) Negative (Negative); Hyaline Casts,Urine 10 /lpf (0-3); Leukocyte Esterase,Urine Moderate (Negative); Mucus,Urine Moderate /lpf (Occasional); Nitrite,Urine Negative (Negative); Specific Gravity,Urine 1.013 (1.002-1.035); Squamous Epithelial Cell,Urine 2 /hpf (0-5); Urobilinogen,Urine 4 or Greater mg/dL (Less than 2)
[2018-05-07 18:59] LABS: Ictotest,Urine Positive (Negative)
[2018-05-08] MEDS: Morphine Sulfate Inj 2 MG/ML Vial IV.PUSH PRN ×5 (02:44→22:10)
[2018-05-08 05:26] LABS: Activated Partial Thrombo Time 40.1 sec (24.3-30.1); INR 1.8 Ratio; Prothrombin Time 18.5 sec (9.8-11.6)
[2018-05-08 05:28] LABS: Alanine Aminotransferase 145 U/L (12-78); Albumin 1.5 g/dL (3.4-5.0); Anion Gap 8 meq/L (5-15); Aspartate Aminotransferase 260 U/L (15-37); Blood Urea Nitrogen 5 mg/dL (7-18); Calcium 7.3 mg/dL (8.5-10.1); Carbon Dioxide 24.3 meq/L (21.0-32.0); Chloride 111 meq/L (98-107); Glomerular Filtration Rate Greater Than 89 mL/min (>89); Glucose,Random 86 mg/dL (74-106); Potassium 3.6 meq/L (3.5-5.1); Sodium 143 meq/L (136-145)
[2018-05-08 05:31] LABS: Alkaline Phosphatase 119 U/L (45-117); Total Protein 6.5 g/dL (6.4-8.2)
[2018-05-08] MEDS: Sod Chloride 0.9% Inj 1,000 ML IV.CONT SCH ×3 (06:53→22:16)
[2018-05-08] MEDS: Furosemide 20 MG Tablet PO SCH (08:48)
[2018-05-08] MEDS: Sodium Chloride 0.9% 2 ML Flush BID IV.FLUSH SCH ×2 (08:49→22:10)
[2018-05-08] MEDS: Tenofovir 300 MG Tablet PO SCH (08:49)
[2018-05-08 11:05] LABS: Eos # (Auto) 0.1 th/mm3 (0.0-0.4); Eos % (Auto) 3.1 % (0.0-4.0); Hematocrit 31.3 % (39.0-51.0); Hemoglobin 10.6 gm/dL (13.0-17.0); Lymph # (Auto) 0.5 th/mm3 (1.0-4.8); Lymph % (Auto) 23.1 % (9.0-44.0); Mean Corpuscular HGB Conc 33.8 % (32.0-36.0); Mean Corpuscular Hemoglobin 36.5 pg (27.0-34.0); Mean Corpuscular Volume 107.8 fL (80.0-100.0); Mean Platelet Volume 8.7 fL (7.0-11.0); Mono # (Auto) 0.2 th/mm3 (0.0-0.9); Mono % (Auto) 8.4 % (0.0-8.0); Neut # (Auto) 1.5 th/mm3 (1.8-7.7); Neut % (Auto) 64.4 % (16.0-70.0); Platelet Count 50 th/mm3 (150-450); Red Cell Distribution Width 17.6 % (11.6-17.2); White Blood Count 2.4 th/mm3 (4.0-11.0)
[2018-05-08] MEDS: Ferrous Sulfate 325 MG Tablet PO SCH ×2 (11:17→16:45)
--- NOTE | 2018-05-08 11:20 | P.PN ---
Subjective Interval history: Follow-up visit for abdominal pain, UTI, pancytopenia liver cirrhosis and hepatitis. Nurse reports patient stated he had a bloody stool although this was never visualized. Nurses also noted that patient has been somewhat confused. Patient is seen and examined resting in bed, appears to be in no acute distress. When asked about bloody stool he reports that it was "flesh color", states that this happens from time to time. He appears to be somewhat annoyed and somewhat mad when I asked if we can obtain a sample of stool. He is encephalopathic and appears somewhat disoriented and repeatedly asked the same question. He denies any nausea or vomiting, cough, shortness of breath or chest pain. Denies any dysuria or hematuria. Later on in the day nurse reports patient had episode of emesis. Physical Exam Vital signs: Vital Signs 05/07/18 12:00 05/07/18 16:00 05/07/18 20:00 Temperature 98.1 F 98.0 F 97.9 F Pulse Rate 74 72 68 Respiratory Rate 18 17 15 Blood Pressure 110/54 L 117/69 104/57 L Pulse Oximetry 99 100 97 05/07/18 22:26 05/08/18 00:30 05/08/18 08:00 Temperature 98.8 F 98.8 F 98.0 F Pulse Rate 78 70 75 Respiratory Rate 20 20 18 Blood Pressure 106/78 108/76 106/59 L Pulse Oximetry 97 97 99 Intake & Output 05/07/18 05/08/18 05/08/18 18:59 06:59 18:59 Intake Total 1720 / 1720 2938 / 2938 250 / 250 Output Total 1000 / 1000 400 / 400 Balance 720 / 720 2538 / 2538 250 / 250 Weight 86.4 kg Intake: IV 1000 / 1000 1999 / 1999 250 / 250 NS Inj 1,000 ML @ 125 mls/hr IV 1000 / 1000 1999 / 1999 .CONT .Q8H [facility] Rx#:[id number] NS Inj 250 ML @ 15 mls/hr IV. 250 / 250 SIG ONCE NIR[facility] Rx#:[id number] Oral 720 / 720 700 / 700 Intake (Blood Product) Amt 238 / 238 Pre-Pooled Cryo Thawed 10units 238 / 238 Unit [id number] Output: Urine 1000 / 1000 400 / 400 Other: # Bowel Movements 0 Narrative: GENERAL: Well-developed, well-nourished male resting in bed. SKIN: Warm and dry. HEENT: Scleral jaundice, pupils equal round reactive, mucous membranes pink and moist. NECK: Supple no JVD. HEART: Regular rhythm with 2/6 murmur. LUNGS: Breath sounds equal bilaterally without wheezing, crackles or rhonchi. ABDOMEN: +BS, soft, positive bowel sounds in all quadrants. Tenderness to RLQ. Worsening ascites noted. EXTREMITIES: Left upper extremity scattered ecchymosis. Bilateral lower extremity vascular discoloration noted with trace edema, increased compared to yesterday. Bilateral upper elbow trace edema noted. NEURO: Awake and alert. PSYCH: Appropriate mood and affect, tearful during my conversation with him today. Results - Labs CBC & Chem 7: 05/08/18 04:56 05/08/18 04:56 Laboratory Results - last 24 hr 05/07/18 05/07/18 05/08/18 13:42 18:30 04:56 PT INR APTT Fibrinogen Sodium 143 Potassium 3.6 Chloride 111 H Carbon Dioxide 24.3 Anion Gap 8 BUN 5 L Creatinine 0.71 Estimated GFR Greater than 89 Random Glucose 86 Calcium 7.3 L* Prot Corrected Calcium 7.6 L Total Bilirubin 7.8 H AST 260 H ALT 145 H Alkaline Phosphatase 119 H Ammonia Total Protein 6.5 Albumin 1.5 L Urine Color [place] Urine Clarity Cloudy H Urine pH 6.0 Ur Specific [place] 1.013 Urine Protein 100 H Urine Glucose (UA) Negative Urine Ketones Negative Urine Occult Blood Large H Urine Nitrate Negative Urine Bilirubin Small H Urine Ictotest Positive H Urine Urobilinogen 4 or greater Ur Leukocyte Esterase Moderate H Urine RBC Urine WBC Urine WBC Clumps Occasional H Ur Squamous Epith Cells 2 Urine Bacteria Moderate H Hyaline Casts 10 Urine Mucus Moderate H Micro UA Comment Culture indicated Ur Microscopic Review Not Reportable Urine Culture Comments Culture indicated Blood Bank Comment 05/08/18 05/08/18 04:56 04:56 PT 18.5 H INR 1.8 APTT 40.1 H Fibrinogen 88 L* Sodium Potassium Chloride Carbon Dioxide Anion Gap BUN Creatinine Estimated GFR Random Glucose Calcium Prot Corrected Calcium Total Bilirubin AST ALT Alkaline Phosphatase Ammonia 95 H Total Protein Albumin Urine Color Urine Clarity Urine pH Ur Specific [place] Urine Protein Urine Glucose (UA) Urine Ketones Urine Occult Blood Urine Nitrate Urine Bilirubin Urine Ictotest Urine Urobilinogen Ur Leukocyte Esterase Urine RBC Urine WBC Urine WBC Clumps Ur Squamous Epith Cells Urine Bacteria Hyaline Casts Urine Mucus Micro UA Comment Ur Microscopic Review Urine Culture Comments Blood Bank Comment Assessment and Plan - Plan 58 YOWM with history of Hep B, Hep C, and liver cirrhosis admitted on 04/29 after being transferred from [facility] for staghorn renal calculus complicated by UTI. 1. Nephrolithiasis with UTI CT scan done at [facility] showing a 3.5 cm staghorn calculus in the right kidney with associated UTI. Patient was transferred to [place] for on- call urology Urology consulted. No acute intervention needed but patient will need a PCNL in the future as an outpatient Reviewed U/A from [place] on 04/28 which showed + nitrite, + leukocytes, + bacteria and yeast, and final urine culture resulted on 05/01 showed no growth Urine culture from 04/30 done at [place] growing Shante glabrata Stop Zosyn and change IV Diflucan to PO with plan to treat for a total of 2 weeks -Denies dysuria today, UA with no growth after 24 hours 2. Pancytopenia Slight improvement in WBCs, H&H and platelets HIV negative Heme/onc following, concern for possible DIC given prolonged PT and APTT, low fibrinogen, and elevated D-dimer Ultrasound of the spleen showed splenomegaly with prominent central splenic veins that may reflect portal hypertension given history of cirrhosis Remains hemodynamically stable (BPs have been low entire admission, patient not tachycardic, diaphoretic, short of breath, etc.). Continue to monitor CBC No active bleeding though patient having some bruising. Check stool for Hemoccult. -Hypertension level 54-->88 3. Liver cirrhosis/HCV/HBV With associated elevated LFTs, bilirubin, coagulopathy, hyperammonemia, and hypoalbuminemia History of heavy alcohol abuse but quit 5 years ago S/p treatment with Harvoni and recently tenofovir was prescribed with diagnosis of hepatitis B the patient was apparently not compliant Previously worked up in [facility] for liver transplant 2016 but unfortunately was not a candidate due to social issues and lack of support Last EGD and colonoscopy in November 2016, portal hypertensive gastropathy noted on EGD otherwise both exams were normal GI following HBV DNA quantitative log elevated, Hep B DNA elevated, Hep B & core IgM antibody reactive, hep C IgG reactive. - GI recommends follow-up as outpatient in clinic when discharged. Continue spironolactone, Lasix, lactulose. -Increased leg edema and visible ascites, GI has added spironolactone and started Nadolol for PHTN -T bili continues to increase, LFTs stable -Avoid hepatotoxins, continue to monitor INR and LFTs 4. Acute metabolic encephalopathy secondary to liver disease -Lactulose 4 times daily with slow improvement in ammonia levels, this morning 95 -GI following, start Xifaxan 5. Coagulopathy/possible DIC -INR continuing to increase today 2.4 - Fibrinogen dropped again to 54, PLTS still low at 37 - Hem/onc. following 6. Hypokalemia Continue KCl PO 20 mEq daily 7. Dry eyes Exam is nonrevealing Continue refresh eyedrops TID PRN DVT prophylaxis: holding chemical anticoagulation given coagulopathy and elevated INR, thrombocytopenia Palliative care has reached out to brother however phone number which patient provided does not seem to be accurate. Discussed Condition With: Patient, RN, , palliative care GEOPHYSICIST, GI GEOPHYSICIST Discharge Planning: Pending Hem/onc clearance and GI clearance. Patient is originally from [facility] in [place] however unable to transfer back to [place] as there is no available welfare visitor/oncologist which will continue to follow him during his stay.
[2018-05-08 12:09] LABS: Platelet Morphology Normal (Normal)
--- NOTE | 2018-05-08 13:27 | P.PNGI ---
Subjective Interval history: Patient is resting in the bed but appears more anxious today, even a little agitated, some encephalopathy noted Does have some mild altered mental status and asking the same questions repetitiously On lactulose but notes one BM this past p.m. otherwise minimal response to lactulose Nausea and vomiting today at lunchtime <Cynthia Garcia - Last Filed: 05/08/18 13:29> Physical Exam Vital signs: Vital Signs 05/07/18 16:00 05/07/18 20:00 05/07/18 22:26 Temperature 98.0 F 97.9 F 98.8 F Pulse Rate 72 68 78 Respiratory Rate 17 15 20 Blood Pressure 117/69 104/57 L 106/78 Pulse Oximetry 100 97 97 05/08/18 00:30 05/08/18 08:00 05/08/18 12:00 Temperature 98.8 F 98.0 F 97.7 F Pulse Rate 70 75 70 Respiratory Rate 20 18 19 Blood Pressure 108/76 106/59 L 114/56 L Pulse Oximetry 97 99 98 Intake & Output 05/07/18 05/08/18 05/08/18 18:59 06:59 18:59 Intake Total 1720 / 1720 2938 / 2938 250 / 250 Output Total 1000 / 1000 400 / 400 Balance 720 / 720 2538 / 2538 250 / 250 Weight 86.4 kg Intake: IV 1000 / 1000 1999 / 1999 250 / 250 NS Inj 1,000 ML @ 125 mls/hr IV 1000 / 1000 1999 / 1999 .CONT .Q8H [facility] Rx#:[id number] NS Inj 250 ML @ 15 mls/hr IV. 250 / 250 SIG ONCE NIRAJ Rx#:[id number] Oral 720 / 720 700 / 700 Intake (Blood Product) Amt 238 / 238 Pre-Pooled Cryo Thawed 10units 238 / 238 Unit [id number] Output: Urine 1000 / 1000 400 / 400 Other: # Bowel Movements 0 - Constitutional mild distress, thin, cachectic, chronically ill appearing (With large round abdomen), disheveled - Routine HEENT Exam Head: Present: normocephalic ENT: Present: mucous membranes moist - Routine Respiratory Exam Present: accessory muscle use (No obvious shortness of breath) - Routine Cardiovascular Exam Present: S1, S2 - Routine Abdominal Exam Present: distended (Moderate distention no obvious abdominal pain positive bowel sounds round, soft) <Cynthia Garcia M - Last Filed: 05/08/18 13:29> Vital signs: Vital Signs 05/07/18 20:00 05/07/18 22:26 05/08/18 00:30 Temperature 97.9 F 98.8 F 98.8 F Pulse Rate 68 78 70 Respiratory Rate 15 20 20 Blood Pressure 104/57 L 106/78 108/76 Pulse Oximetry 97 97 97 05/08/18 08:00 05/08/18 12:00 05/08/18 16:00 Temperature 98.0 F 97.7 F 98.0 F Pulse Rate 75 70 87 Respiratory Rate 18 19 17 Blood Pressure 106/59 L 114/56 L 112/57 L Pulse Oximetry 99 98 99 Intake & Output 05/07/18 05/08/18 05/08/18 18:59 06:59 18:59 Intake Total 1720 / 1720 2938 / 2938 1250 / 1250 Output Total 1000 / 1000 400 / 400 Balance 720 / 720 2538 / 2538 1250 / 1250 Weight 86.4 kg Intake: IV 1000 / 1000 2000 / 2000 1250 / 1250 NS Inj 1,000 ML @ 125 mls/hr IV 1000 / 1000 2000 / 2000 1000 / 1000 .CONT .Q8H [facility] Rx#:[id number] NS Inj 250 ML @ 15 mls/hr IV. 250 / 250 SIG ONCE NIR[facility] Rx#:[id number] Oral 720 / 720 700 / 700 Intake (Blood Product) Amt 238 / 238 Pre-Pooled Cryo Thawed 10units 238 / 238 Unit [id number] Output: Urine 1000 / 1000 400 / 400 Other: # Bowel Movements 0 <Case Castro - Last Filed: 05/08/18 17:22> Results - Labs CBC & Chem 7: 05/08/18 04:56 05/08/18 04:56 Laboratory Results - last 24 hr 05/07/18 05/07/18 05/08/18 13:42 18:30 04:56 WBC 2.4 L D RBC 2.90 L Hgb 10.6 L Hct 31.3 L MCV 107.8 H MCH 36.5 H MCHC 33.8 RDW 17.6 H Plt Count 50 L D MPV 8.7 Prelim Diff (Auto) Slide review pending Neut % (Auto) 64.4 Lymph % (Auto) 23.1 [place] % (Auto) 8.4 H Eos % (Auto) 3.1 Baso % (Auto) 1.0 Neut # (Auto) 1.5 L Lymph # (Auto) 0.5 L [place] # (Auto) 0.2 Eos # (Auto) 0.1 Baso # (Auto) 0.0 WBC Differential . Diff Scan Auto diff confirmed Differential Comment . Platelet Estimate Low L Platelet Morphology Normal PT INR APTT Fibrinogen Sodium Potassium Chloride Carbon Dioxide Anion Gap BUN Creatinine Estimated GFR Random Glucose Calcium Prot Corrected Calcium Total Bilirubin AST ALT Alkaline Phosphatase Ammonia Total Protein Albumin Urine Color Rosalba Urine Clarity Cloudy H Urine pH 6.0 Ur Specific [place] 1.013 Urine Protein 100 H Urine Glucose (UA) Negative Urine Ketones Negative Urine Occult Blood Large H Urine Nitrate Negative Urine Bilirubin Small H Urine Ictotest Positive H Urine Urobilinogen 4 or greater Ur Leukocyte Esterase Moderate H Urine RBC Urine WBC Urine WBC Clumps Occasional H Ur Squamous Epith Cells 2 Urine Bacteria Moderate H Hyaline Casts 10 Urine Mucus Moderate H Micro UA Comment Culture indicated Ur Microscopic Review Not Reportable Urine Culture Comments Culture indicated Blood Bank Comment 05/08/18 05/08/18 05/08/18 04:56 04:56 04:56 WBC RBC Hgb Hct MCV MCH MCHC RDW Plt Count MPV Prelim Diff (Auto) Neut % (Auto) Lymph % (Auto) [place] % (Auto) Eos % (Auto) Baso % (Auto) Neut # (Auto) Lymph # (Auto) [place] # (Auto) Eos # (Auto) Baso # (Auto) WBC Differential Diff Scan Differential Comment Platelet Estimate Platelet Morphology PT 18.5 H INR 1.8 APTT 40.1 H Fibrinogen 88 L* Sodium 143 Potassium 3.6 Chloride 111 H Carbon Dioxide 24.3 Anion Gap 8 BUN 5 L Creatinine 0.71 Estimated GFR Greater than 89 Random Glucose 86 Calcium 7.3 L* Prot Corrected Calcium 7.6 L Total Bilirubin 7.8 H AST 260 H ALT 145 H Alkaline Phosphatase 119 H Ammonia 95 H Total Protein 6.5 Albumin 1.5 L Urine Color Urine Clarity Urine pH Ur Specific [place] Urine Protein Urine Glucose (UA) Urine Ketones Urine Occult Blood Urine Nitrate Urine Bilirubin Urine Ictotest Urine Urobilinogen Ur Leukocyte Esterase Urine RBC Urine WBC Urine WBC Clumps Ur Squamous Epith Cells Urine Bacteria Hyaline Casts Urine Mucus Micro UA Comment Ur Microscopic Review Urine Culture Comments Blood Bank Comment <Cynthia Garcia - Last Filed: 05/08/18 13:29> - Labs CBC & Chem 7: 05/08/18 04:56 05/08/18 04:56 Laboratory Results - last 24 hr 05/07/18 05/07/18 05/08/18 13:42 18:30 04:56 WBC 2.4 L D RBC 2.90 L Hgb 10.6 L Hct 31.3 L MCV 107.8 H MCH 36.5 H MCHC 33.8 RDW 17.6 H Plt Count 50 L D MPV 8.7 Prelim Diff (Auto) Slide review pending Neut % (Auto) 64.4 Lymph % (Auto) 23.1 [place] % (Auto) 8.4 H Eos % (Auto) 3.1 Baso % (Auto) 1.0 Neut # (Auto) 1.5 L Lymph # (Auto) 0.5 L [place] # (Auto) 0.2 Eos # (Auto) 0.1 Baso # (Auto) 0.0 WBC Differential . Diff Scan Auto diff confirmed Differential Comment . Platelet Estimate Low L Platelet Morphology Normal PT INR APTT Fibrinogen Sodium Potassium Chloride Carbon Dioxide Anion Gap BUN Creatinine Estimated GFR Random Glucose Calcium Prot Corrected Calcium Total Bilirubin AST ALT Alkaline Phosphatase Ammonia Total Protein Albumin Urine Color [place] Urine Clarity Cloudy H Urine pH 6.0 Ur Specific [place] 1.013 Urine Protein 100 H Urine Glucose (UA) Negative Urine Ketones Negative Urine Occult Blood Large H Urine Nitrate Negative Urine Bilirubin Small H Urine Ictotest Positive H Urine Urobilinogen 4 or greater Ur Leukocyte Esterase Moderate H Urine RBC Urine WBC Urine WBC Clumps Occasional H Ur Squamous Epith Cells 2 Urine Bacteria Moderate H Hyaline Casts 10 Urine Mucus Moderate H Micro UA Comment Culture indicated Ur Microscopic Review Not Reportable Urine Culture Comments Culture indicated Blood Bank Comment 05/08/18 05/08/18 05/08/18 04:56 04:56 04:56 WBC RBC Hgb Hct MCV MCH MCHC RDW Plt Count MPV Prelim Diff (Auto) Neut % (Auto) Lymph % (Auto) [place] % (Auto) Eos % (Auto) Baso % (Auto) Neut # (Auto) Lymph # (Auto) [place] # (Auto) Eos # (Auto) Baso # (Auto) WBC Differential Diff Scan Differential Comment Platelet Estimate Platelet Morphology PT 18.5 H INR 1.8 APTT 40.1 H Fibrinogen 88 L* Sodium 143 Potassium 3.6 Chloride 111 H Carbon Dioxide 24.3 Anion Gap 8 BUN 5 L Creatinine 0.71 Estimated GFR Greater than 89 Random Glucose 86 Calcium 7.3 L* Prot Corrected Calcium 7.6 L Total Bilirubin 7.8 H AST 260 H ALT 145 H Alkaline Phosphatase 119 H Ammonia 95 H Total Protein 6.5 Albumin 1.5 L Urine Color Urine Clarity Urine pH Ur Specific [place] Urine Protein Urine Glucose (UA) Urine Ketones Urine Occult Blood Urine Nitrate Urine Bilirubin Urine Ictotest Urine Urobilinogen Ur Leukocyte Esterase Urine RBC Urine WBC Urine WBC Clumps Ur Squamous Epith Cells Urine Bacteria Hyaline Casts Urine Mucus Micro UA Comment Ur Microscopic Review Urine Culture Comments Blood Bank Comment Microbiology 05/07/18 18:30 Clean Catch Urine Urine Culture - Preliminary No growth in 24 hours <Case Castro - Last Filed: 05/08/18 17:22> Assessment and Plan (1) Liver cirrhosis Status: Acute Code(s): K74.60 - Unspecified cirrhosis of liver (2) Hep C w/o coma, chronic Status: Acute Code(s): B18.2 - Chronic viral hepatitis C - Plan (1) Liver cirrhosis Status: Acute Code(s): K74.60 - Unspecified cirrhosis of liver (2) Hep C w/o coma, chronic Status: Acute Code(s): B18.2 - Chronic viral hepatitis C 05/07/18-Liver cirrhosis-most recent labs 05/06/2018 revealed total bilirubin of 7.6 AST of 300 ALT 157 alkaline phosphatase 123 ammonia level 136 albumin 1.6. Discussed liver function with the patient who is aware of worsening values. We will continue to monitor. Chronic hepatitis C/acute hepatitis B-patient with history of chronic hepatitis C currently restarted on antiviral for same (Tenofovir). Patient denies any known reason for pablo acute hepatitis B. Discussed precautions with patient as well as risk factors and he verbalizes understanding. 05/08/2018 patient appears to have slow gradual decline as far as his mental status and some mild to moderate anxiety today. Some nausea and vomiting at lunchtime acute onset. Discussed again with patient his liver disease and the need for medical management even when he is out of the hospital. Current ammonia level 95 today albumin 1.5, bilirubin 7.8, AST 260 ALT 145, alkaline phosphatase 119 PT/INR 1.8. Noted mild trend of bilirubin increasing but liver enzymes mild decrease. Discuss with patient his support system when getting out of the hospital and states that he is supposed to talk to case management sometime today. States he does have a brother who does not seem to understand how serious his condition is which worries him as far. Palliative care team on board which might could assist with contact to brother if patient agrees. According to the record patient will be going home with a female friend who will assist him. States last bowel movement this past p.m. so questionable effectiveness of lactulose. Overall poor prognosis and general decline noted. Due to patient's portal hypertensive gastropathy, added further medication management to his regimen Encephalopathy appears to be worsened today. Patient is now on VIREAD. Plan: Diet cardiac as tolerated but encouraged patient to stick more with clear liquids or soft foods if there is any nausea or vomiting Lactulose 4 times a day Viread Xifaxan 550 p.o. every 12, added Spironolactone 100 mg daily added PPI Nadolol 20 mg daily added Recheck ammonia level in the morning Monitor for any obvious GI bleed as well as monitor labs Supportive care Patient was seen per myself and Dr. Castro, note was written on his behalf <Cynthia Garcia - Last Filed: 05/08/18 13:29> (1) Liver cirrhosis Status: Acute Code(s): K74.60 - Unspecified cirrhosis of liver (2) Hep C w/o coma, chronic Status: Acute Code(s): B18.2 - Chronic viral hepatitis C - Plan Patient seen and examined Agree with above Continue with current supportive care Monitor labs Poor prognosis Consider hospice <Case Castro - Last Filed: 05/08/18 17:22> <Cynthia Garcia M - Last Filed: 05/08/18 13:29> (1) Liver cirrhosis Qualifiers: Hepatic cirrhosis type: other cirrhosis Qualified Code(s): K74.69 - Other cirrhosis of liver <Case Castro - Last Filed: 05/08/18 17:22> (1) Liver cirrhosis Qualifiers: Hepatic cirrhosis type: other cirrhosis Qualified Code(s): K74.69 - Other cirrhosis of liver
--- NOTE | 2018-05-08 14:28 | P.PNPAL ---
Reason for Visit Reason for visit: a. To assist with evaluation and management of symptoms including: Encephalopathy, pain b. To assist medical decision maker(s) with: better understanding of current medical conditions; weighing benefits/burdens of medical treatment options; making medical treatment decisions. Subjective Subjective/Interval History: This 58-year-old patient who was transferred here to [facility] from [facility] in [place] on 04/29/18. There he had gone for evaluation of right-sided abdominal pain on 04/28. He also presented with constipation and dark urine. Abdominal CT indicative of portal hypertension changes, cirrhotic liver, and 3.5 cm staghorn calculus right kidney with possible mild duodenitis and cholelithiasis. + pancytopenia, + UTI - started on zosyn IV. He was transferred to [place] due to staghorn calculus w concomitant infection, and requiring a urologist evaluation. also noted to have chronic hep C, cirrhosis, stable. Pt seen today to follow up on comfort, goals with pt and/or decision maker. yesterday I left for reported Brother, no call back yet. PT stable, however Bili remains elevated 7.8, LFTs remain elevated. H&H stable, no obvious signs of bleeding. No BM yet today. Voiding adequately. Reported w episode n/v at lunchtime. GI following, repeat ammonia for am. started on Xifaxan ,Spironolactone . Dual visit w Nory Cheema [employer]. Pt seen in room no visitors. Alert, partially oriented. Able to name "[place]" but unable to state city. Unable to state why he is hospitalized other than abdominal pain. He indicates he does remember me from yesterday however unable to recall discussion other than that I would call his brother. Review that I attempted to call brother, that phone appears to say [place], he says his brother nickname is [place], is still correct/Arley. He asks I try to reach him again. He endorses n/v earlier today, but now he feels like he might tolerate sherbert, assisted him to dial kitchen. He has little insight. He is forgetful, repetitive. Attempted to explore tx added for Hepatitis he is not able to follow conversation, rambles about other unrelated things. He does NOT appear able to make insightful decisions at this time. Recommend cont to try to reach brother Arley whom he has designated as HCS. He obtained # from his brayan phone. Advance Directives Advance Directives Date on File: 05/07/18 Health Care Surrogate Name and Number: Names brother Arley Valadez (brett) Objective Vital Signs: Vital Signs 05/07/18 16:00 05/07/18 20:00 05/07/18 22:26 Temperature 98.0 F 97.9 F 98.8 F Pulse Rate 72 68 78 Respiratory Rate 17 15 20 Blood Pressure 117/69 104/57 L 106/78 Pulse Oximetry 100 97 97 05/08/18 00:30 05/08/18 08:00 05/08/18 12:00 Temperature 98.8 F 98.0 F 97.7 F Pulse Rate 70 75 70 Respiratory Rate 20 18 19 Blood Pressure 108/76 106/59 L 114/56 L Pulse Oximetry 97 99 98 Intake & Output 05/07/18 05/08/18 05/08/18 18:59 06:59 18:59 Intake Total 1720 / 1720 2938 / 2938 250 / 250 Output Total 1000 / 1000 400 / 400 Balance 720 / 720 2538 / 2538 250 / 250 Weight 86.4 kg Intake: IV 1000 / 1000 1999 250 / 250 NS Inj 1,000 ML @ 125 mls/hr IV 1000 / 1000 1999 .CONT .Q8H NIRAJ Rx#:[id number] NS Inj 250 ML @ 15 mls/hr IV. 250 / 250 SIG ONCE NIRAJ Rx#:[id number] Oral 720 / 720 700 / 700 Intake (Blood Product) Amt 238 / 238 Pre-Pooled Cryo Thawed 10units 238 / 238 Unit [id number] Output: Urine 1000 / 1000 400 / 400 Other: # Bowel Movements 0 Physical Exam: CONSTITUTIONAL/GENERAL: This is a chronically ill appearing male, flat, confused TUBES/LINES/DRAINS: PIV uE. SKIN: No rashes, or lesions. Ecchymoses Lt anterior shoulder. + jaundiced. Skin warm/dry. EYES: Pupils equal and round and reactive. Extraocular motions intact. + scleral icterus. No injection or drainage. Fundi not examined. ENT: Hearing grossly normal. Nose without bleeding or purulent drainage. Throat without visible erythema, exudates, masses, or lesions.MM dry NECK: Trachea midline. Supple, nontender. No palpable thyroid enlargement or nodularity. CARDIOVASCULAR: Regular rate and rhythm ,+ murmur . No JVD. Peripheral pulses symmetric. Trace pedal edema. RESPIRATORY/CHEST: Symmetric, unlabored respirations. on room air. Clear to auscultation. Breath sounds equal bilaterally. GASTROINTESTINAL: Abdomen soft, mildly tender, +distended. ,+distended/slight splenomegaly . No guarding. Bowel sounds present. GENITOURINARY: Without palpable bladder distension. MUSCULOSKELETAL: Extremities without clubbing, cyanosis. No joint tenderness or effusion noted. No calf tenderness. chronic vascular discoloration visible to bilateral lower legs NEUROLOGICAL: Awake , partially oriented x1-2. Forgetful, easily confused details. Rambling speech, Poor historian. cooperative, follows commands. Moves all 4 extremities, able to reposition self in bed. PSYCHIATRIC: somewhat flat/encephalopathic Diagnostic Tests Laboratory: Laboratory Results - last 72 hr 05/01/18 05/06/18 05/06/18 10:29 06:48 12:18 WBC RBC Hgb Hct MCV MCH MCHC RDW Plt Count MPV Prelim Diff (Auto) Neut % (Auto) Lymph % (Auto) [place] % (Auto) Eos % (Auto) Baso % (Auto) Neut # (Auto) Lymph # (Auto) [place] # (Auto) Eos # (Auto) Baso # (Auto) WBC Differential Diff Scan Differential Comment Platelet Estimate Platelet Morphology Tear Drop Cells Ovalocytes PT INR APTT Fibrinogen Sodium 141 Potassium 3.9 Chloride 108 H Carbon Dioxide 25.1 Anion Gap 8 BUN 5 L Creatinine 0.69 Estimated GFR Greater than 89 Random Glucose 111 H Calcium 7.5 L Prot Corrected Calcium Total Bilirubin 7.6 H AST 300 H ALT 157 H Alkaline Phosphatase 123 H Ammonia 136 H Total Protein 6.7 D Albumin 1.6 L Urine Color Urine Clarity Urine pH Ur Specific River Urine Protein Urine Glucose (UA) Urine Ketones Urine Occult Blood Urine Nitrate Urine Bilirubin Urine Ictotest Urine Urobilinogen Ur Leukocyte Esterase Urine RBC Urine WBC Urine WBC Clumps Ur Squamous Epith Cells Urine Bacteria Hyaline Casts Urine Mucus Micro UA Comment Ur Microscopic Review Urine Culture Comments Hep B DNA Qnt log IU/mL 4.91 H Hep B DNA (IU/mL) 81275 H HCV RNA (PCR) IUs/ml HCV RNA PCR log IUs/ml Blood Bank Comment 05/06/18 05/06/18 05/07/18 14:38 14:38 06:41 WBC 2.7 L 1.5 L RBC 2.67 L 2.47 L Hgb 9.9 L 9.2 L Hct 28.6 L 26.3 L MCV 107.3 H 106.3 H MCH 37.0 H 37.1 H MCHC 34.5 34.9 RDW 18.1 H 17.2 Plt Count 44 L D 37 L MPV 8.5 9.0 Prelim Diff (Auto) Slide review pending Slide review pending Neut % (Auto) 72.8 H 57.4 Lymph % (Auto) 17.4 29.1 [place] % (Auto) 6.9 8.8 H Eos % (Auto) 2.0 3.8 Baso % (Auto) 0.9 0.9 Neut # (Auto) 1.9 0.9 L Lymph # (Auto) 0.5 L 0.4 L [place] # (Auto) 0.2 0.1 Eos # (Auto) 0.1 0.1 Baso # (Auto) 0.0 0.0 WBC Differential . . Diff Scan Auto diff confirmed Auto diff confirmed Differential Comment . . Platelet Estimate Low L Low L Platelet Morphology Normal Normal Tear Drop Cells 1+ H Ovalocytes 1+ H PT 23.0 H INR 2.3 APTT Fibrinogen Sodium Potassium Chloride Carbon Dioxide Anion Gap BUN Creatinine Estimated GFR Random Glucose Calcium Prot Corrected Calcium Total Bilirubin AST ALT Alkaline Phosphatase Ammonia Total Protein Albumin Urine Color Urine Clarity Urine pH Ur Specific River Urine Protein Urine Glucose (UA) Urine Ketones Urine Occult Blood Urine Nitrate Urine Bilirubin Urine Ictotest Urine Urobilinogen Ur Leukocyte Esterase Urine RBC Urine WBC Urine WBC Clumps Ur Squamous Epith Cells Urine Bacteria Hyaline Casts Urine Mucus Micro UA Comment Ur Microscopic Review Urine Culture Comments Hep B DNA Qnt log IU/mL Hep B DNA (IU/mL) HCV RNA (PCR) IUs/ml HCV RNA PCR log IUs/ml Blood Bank Comment 05/07/18 05/07/18 05/07/18 06:41 13:42 18:30 WBC RBC Hgb Hct MCV MCH MCHC RDW Plt Count MPV Prelim Diff (Auto) Neut % (Auto) Lymph % (Auto) [place] % (Auto) Eos % (Auto) Baso % (Auto) Neut # (Auto) Lymph # (Auto) [place] # (Auto) Eos # (Auto) Baso # (Auto) WBC Differential Diff Scan Differential Comment Platelet Estimate Platelet Morphology Tear Drop Cells Ovalocytes PT 23.9 H INR 2.4 APTT 48.3 H Fibrinogen 54 L* Sodium Potassium Chloride Carbon Dioxide Anion Gap BUN Creatinine Estimated GFR Random Glucose Calcium Prot Corrected Calcium Total Bilirubin AST ALT Alkaline Phosphatase Ammonia Total Protein Albumin Urine Color [place] Urine Clarity Cloudy H Urine pH 6.0 Ur Specific River 1.013 Urine Protein 100 H Urine Glucose (UA) Negative Urine Ketones Negative Urine Occult Blood Large H Urine Nitrate Negative Urine Bilirubin Small H Urine Ictotest Positive H Urine Urobilinogen 4 or greater Ur Leukocyte Esterase Moderate H Urine RBC Urine WBC Urine WBC Clumps Occasional H Ur Squamous Epith Cells 2 Urine Bacteria Moderate H Hyaline Casts 10 Urine Mucus Moderate H Micro UA Comment Culture indicated Ur Microscopic Review Not Reportable Urine Culture Comments Culture indicated Hep B DNA Qnt log IU/mL Hep B DNA (IU/mL) HCV RNA (PCR) IUs/ml HCV RNA PCR log IUs/ml Blood Bank Comment 05/08/18 05/08/18 05/08/18 04:56 04:56 04:56 WBC 2.4 L D RBC 2.90 L Hgb 10.6 L Hct 31.3 L MCV 107.8 H MCH 36.5 H MCHC 33.8 RDW 17.6 H Plt Count 50 L D MPV 8.7 Prelim Diff (Auto) Slide review pending Neut % (Auto) 64.4 Lymph % (Auto) 23.1 [place] % (Auto) 8.4 H Eos % (Auto) 3.1 Baso % (Auto) 1.0 Neut # (Auto) 1.5 L Lymph # (Auto) 0.5 L [place] # (Auto) 0.2 Eos # (Auto) 0.1 Baso # (Auto) 0.0 WBC Differential . Diff Scan Auto diff confirmed Differential Comment . Platelet Estimate Low L Platelet Morphology Normal Tear Drop Cells Ovalocytes PT INR APTT Fibrinogen Sodium 143 Potassium 3.6 Chloride 111 H Carbon Dioxide 24.3 Anion Gap 8 BUN 5 L Creatinine 0.71 Estimated GFR Greater than 89 Random Glucose 86 Calcium 7.3 L* Prot Corrected Calcium 7.6 L Total Bilirubin 7.8 H AST 260 H ALT 145 H Alkaline Phosphatase 119 H Ammonia 95 H Total Protein 6.5 Albumin 1.5 L Urine Color Urine Clarity Urine pH Ur Specific [place] Urine Protein Urine Glucose (UA) Urine Ketones Urine Occult Blood Urine Nitrate Urine Bilirubin Urine Ictotest Urine Urobilinogen Ur Leukocyte Esterase Urine RBC Urine WBC Urine WBC Clumps Ur Squamous Epith Cells Urine Bacteria Hyaline Casts Urine Mucus Micro UA Comment Ur Microscopic Review Urine Culture Comments Hep B DNA Qnt log IU/mL Hep B DNA (IU/mL) HCV RNA (PCR) IUs/ml HCV RNA PCR log IUs/ml Blood Bank Comment 05/08/18 04:56 WBC RBC Hgb Hct MCV MCH MCHC RDW Plt Count MPV Prelim Diff (Auto) Neut % (Auto) Lymph % (Auto) [place] % (Auto) Eos % (Auto) Baso % (Auto) Neut # (Auto) Lymph # (Auto) [place] # (Auto) Eos # (Auto) Baso # (Auto) WBC Differential Diff Scan Differential Comment Platelet Estimate Platelet Morphology Tear Drop Cells Ovalocytes PT 18.5 H INR 1.8 APTT 40.1 H Fibrinogen 88 L* Sodium Potassium Chloride Carbon Dioxide Anion Gap BUN Creatinine Estimated GFR Random Glucose Calcium Prot Corrected Calcium Total Bilirubin AST ALT Alkaline Phosphatase Ammonia Total Protein Albumin Urine Color Urine Clarity Urine pH Ur Specific [place] Urine Protein Urine Glucose (UA) Urine Ketones Urine Occult Blood Urine Nitrate Urine Bilirubin Urine Ictotest Urine Urobilinogen Ur Leukocyte Esterase Urine RBC Urine WBC Urine WBC Clumps Ur Squamous Epith Cells Urine Bacteria Hyaline Casts Urine Mucus Micro UA Comment Ur Microscopic Review Urine Culture Comments Hep B DNA Qnt log IU/mL Hep B DNA (IU/mL) HCV RNA (PCR) IUs/ml HCV RNA PCR log IUs/ml Blood Bank Comment Result Diagrams: 05/08/18 04:56 05/08/18 04:56 Microbiology: Microbiology 05/07/18 18:30 Urine Culture - Preliminary Clean Catch Urine No growth in 24 hours Imaging: Impressions Venous Doppler Study 05/06/18 00:00 CONCLUSION: 1. The tiny nonocclusive thrombus of the right popliteal vein is unchanged. 2. Otherwise negative. Assessment and Plan - Disease Oriented Problem List (1) Hepatitis B infection (2) Staghorn renal calculus (3) Acute UTI (4) Liver cirrhosis (5) Hep C w/o coma, chronic Pertinent Non-Medical Issues: Psychosocial: Patient indicates originally from [place]. Did live in [place] for about a year but has since been in [place] for several years. 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 Has 7 siblings though does not remain in close communication with them. Spiritual: [employer], no particular affiliation. Requests supervisor grower visit, supervisor grower notified. Legal:Patient today mildly encephalopathic. Ammonia level elevated. Partially oriented. Appears capacitated enough to participate some in decision making but does not have full insight. He is able to designate healthcare surrogate names his brother Arley Valadez as someone he would trust to make decisions in an emergency. Would recommend shared decision making at this point given his fluctuating mental status. Ethical issues impacting care: No ethical issues identified Important Contacts: Brother Arley Valadez (Brett) [phone] Prognosis: Patient is a poor historian, full medical history not readily available. Appears he has had some component of chronic liver disease, now with superimposed acute liver dysfunction. Hepatitis B, hepatitis C positive. Initiated on treatment here. Encephalopathic. Bilirubin trending up. Possible current acute disease process may be stable with ongoing aggressive treatment w antiviral, though he remains high risk for ongoing if liver disease does not stabilize or respond to treatment. At that point may be appropriate for hospice. On the other hand if goals were comfort oriented and did not desire further aggressive interventions then would also be hospice appropriate now. Code Status: Full Code Plan: Legal decision maker:Patient today mildly encephalopathic. Ammonia level elevated. Partially oriented. Appears capacitated enough to participate some in decision making but does not have full insight. He is able to designate healthcare surrogate names his brother Arley Valadez as someone he would trust to make decisions in an emergency. Would recommend shared decision making at this point given his fluctuating mental status. Goals: Patient goals stated to continue treatment he "wants to live ". He has limited insight and understanding at this time. I attempted to reach his brother Arley again today 05/08 per his request, I left a voicemail with my contact information, as well as hospital call back #. Discussed with primary nurse, medical attending EDUARD Xiong CODE STATUS: Full code by default, and patient indicates that he would want life support if it will help him live SYMPTOMS: --Pain-has had some ongoing pain to right flank/abdomen indicates this was new onset at time of presentation to [facility]. He does endorse good relief with use of prn--indicates he had not previously been on any chronic opiates for chronic pain syndromes. Has been using 2 mg morphine IV about 3 times per day here, effective per patient report. Continue to monitor requirements/effectiveness. Cautious up titration given concern for lethargy, mental status w encephalopathy --Encephalopathy-patient with fluctuating mental status, hepatitis, bilirubin trending up. Ammonia level down to 136 though remains elevated. On lactulose, rifaximin added. Partially oriented though forgetful, poor historian , poor insight. Possible this may improve if liver functions improved. -- n/v-1 episode w lunch. has prn zofran available. Monitor requirements/ effectiveness. Palliative care will continue to follow during hospital course as condition evolves, to assist patient/decision-maker with understanding of medical conditions, weighing benefits/burdens of treatment options, for clarification of goals of treatment. Additionally will assist with any symptoms of palliative concern Attestation Attestation: To help prompt me to consider important information that might be impacting today's encounter and assessment, information from prior notes written by myself or my colleagues may have been "brought forward" into today's note. My signature on this note, however, is an attestation that I personally performed the exam, history, and/or decision-making noted today, and, unless otherwise indicated, the interactions with patient, family, and staff as well as the review of records all occurred today. I also attest that the listed assessment and stated plan reflect my best clinical judgment today based on the combination of historical information, prior notes, and today's exam/ interactions. When time spent is documented, it refers only to time spent today by the signer, or if indicated, combined time spent today by collaborating physician/nurse practitioner.
--- NOTE | 2018-05-08 14:57 | MH ---
cc: Myke Carpio MD DATE OF ADMISSION: 04/29/2018 HISTORY OF PRESENT ILLNESS: Mr. Valadez is seen in room 1717. He is his usual self with complaints of aches and pains for which he is requesting pain medication. He has no fevers. No bleeding. His bruises seemed to be healing. There is no blood in the stool or black stools. No gum bleeding or nose bleeds. No fevers or chills. PHYSICAL EXAMINATION: GENERAL: Currently ill appearing, in no acute distress, pallor present. HEENT: Icterus present. No palpable adenopathy in the neck or axilla. No petechiae on the palate. No gum bleeding. NEUROLOGIC: Alert and oriented x4. No tremors. LUNGS: Clear to auscultation. ABDOMEN: Soft with questionable splenomegaly, nontender. No guarding. No free fluid. EXTREMITIES: No edema or evidence of DVTs. LABORATORY DATA: Reviewed. White count 2.4, hemoglobin 10.6, platelets 550. IMPRESSION: Pancytopenia in a gentleman with chronic liver disease, cirrhosis, hepatitis C, and splenomegaly. Cytopenias are stable. The patient with no evidence of active bleeding. He did have hypofibrinogenemia but is not requiring any transfusion support at this time. PLAN: We will continue to monitor him and see him in followup in the hospital. Dr. Cordero is precision lens generator for the weekend. MD DEMETRIO Monahan/deedee , 02:42 PM , 02:50 PM [facility]OSPITALDarline
[2018-05-08] MEDS: rifAXIMin 550 MG Tablet PO SCH ×2 (16:45→22:09)
[2018-05-08] MEDS: Nadolol 20 MG Tablet PO SCH (16:45)
[2018-05-09] MEDS: Morphine Sulfate Inj 2 MG/ML Vial IV.PUSH PRN ×3 (02:35→10:42)
[2018-05-09] MEDS: Sod Chloride 0.9% Inj 1,000 ML IV.CONT SCH (06:23)
[2018-05-09] MEDS: Sodium Chloride 0.9% 2 ML Flush BID IV.FLUSH SCH ×2 (08:18→20:18)
[2018-05-09] MEDS: Nadolol 20 MG Tablet PO SCH (08:18)
[2018-05-09] MEDS: rifAXIMin 550 MG Tablet PO SCH ×2 (08:18→20:18)
[2018-05-09] MEDS: Furosemide 20 MG Tablet PO SCH (08:18)
[2018-05-09] MEDS: Tenofovir 300 MG Tablet PO SCH (08:18)
--- NOTE | 2018-05-09 11:27 | P.PN ---
Subjective Interval history: Follow-up visit for abdominal pain, UTI, pancytopenia liver cirrhosis and hepatitis. Patient seen and examined in bed this morning, continues to complain of abdominal pain, requesting adjustments to his medications. No nausea today, he did have breakfast with no vomiting. Patient continues to be somewhat altered and confused. Physical Exam Vital signs: Vital Signs 05/08/18 12:00 05/08/18 16:00 05/08/18 20:00 Temperature 97.7 F 98.0 F 98.2 F Pulse Rate 70 87 68 Respiratory Rate 19 17 18 Blood Pressure 114/56 L 112/57 L 100/57 L Pulse Oximetry 98 99 99 05/09/18 00:00 05/09/18 08:00 Temperature 98.1 F 98.0 F Pulse Rate 62 73 Respiratory Rate 18 18 Blood Pressure 102/52 L 96/53 L Pulse Oximetry 97 99 Intake & Output 05/08/18 05/09/18 05/09/18 18:59 06:59 18:59 Intake Total 2049 2480 / 2480 Output Total 650 / 650 Balance 2049 1830 / 1830 Weight 87.7 kg Intake: IV 1250 / 1250 1999 NS Inj 1,000 ML @ 125 mls/hr IV 1000 / 1000 1999 / 1999 .CONT .Q8H NIRAJ Rx#:[id number] NS Inj 250 ML @ 15 mls/hr IV. 250 / 250 SIG ONCE NIRAJ Rx#:[id number] Oral 800 / 800 480 / 480 Output: Urine 650 / 650 Other: # Voids 6 # Bowel Movements 1 Narrative: GENERAL: Well-developed, well-nourished male resting in bed. SKIN: Warm and dry. HEENT: Scleral jaundice, pupils equal round reactive, mucous membranes pink and moist. NECK: Supple no JVD. HEART: Regular rhythm with 2/6 murmur. LUNGS: Breath sounds equal bilaterally without wheezing, crackles or rhonchi. ABDOMEN: +BS, soft, positive bowel sounds in all quadrants. Tenderness to RLQ. Ascites and scrotal edema noted. EXTREMITIES: Left upper extremity scattered ecchymosis. Bilateral lower extremity vascular discoloration. Bilateral lower extremity edema +1, bilateral upper extremities with trace edema. NEURO: Awake and alert. Oriented to self and place with some confusion. Moves all extremities without difficulty. PSYCH: Appropriate mood and affect. Results - Labs CBC & Chem 7: 05/08/18 04:56 05/08/18 04:56 Laboratory Results - last 24 hr 05/08/18 05/09/18 04:56 09:10 WBC 2.4 L D RBC 2.90 L Hgb 10.6 L Hct 31.3 L MCV 107.8 H MCH 36.5 H MCHC 33.8 RDW 17.6 H Plt Count 50 L D MPV 8.7 Prelim Diff (Auto) Slide review pending Neut % (Auto) 64.4 Lymph % (Auto) 23.1 [place] % (Auto) 8.4 H Eos % (Auto) 3.1 Baso % (Auto) 1.0 Neut # (Auto) 1.5 L Lymph # (Auto) 0.5 L [place] # (Auto) 0.2 Eos # (Auto) 0.1 Baso # (Auto) 0.0 WBC Differential . Diff Scan Auto diff confirmed Differential Comment . Platelet Estimate Low L Platelet Morphology Normal Ammonia 118 H Microbiology 05/07/18 18:30 Clean Catch Urine Urine Culture - Preliminary No growth in 24 hours Assessment and Plan - Plan 58 YOWM with history of Hep B, Hep C, and liver cirrhosis admitted on 04/29 after being transferred from [facility] for staghorn renal calculus complicated by UTI. 1. Nephrolithiasis with UTI CT scan done at [facility] showing a 3.5 cm staghorn calculus in the right kidney with associated UTI. Patient was transferred to [place] for on- call urology Urology consulted. No acute intervention needed but patient will need a PCNL in the future as an outpatient Reviewed U/A from [facility] on 04/28 which showed + nitrite, + leukocytes, + bacteria and yeast, and final urine culture resulted on 05/01 showed no growth Urine culture from 04/30 done at [place] growing Shante glabrata Stop Zosyn and change IV Diflucan to PO with plan to treat for a total of 2 weeks -Denies dysuria today, UA with no growth to date. - Ongoing abdominal pain, add Roxicodone and increase IV Morphine dose if unable to take p.o. 2. Pancytopenia HIV negative Heme/onc following, concern for possible DIC given prolonged PT and APTT, low fibrinogen, and elevated D-dimer Ultrasound of the spleen showed splenomegaly with prominent central splenic veins that may reflect portal hypertension given history of cirrhosis Remains hemodynamically stable. Continue to monitor CBC No active bleeding though patient having some bruising. Check stool for Hemoccult. 3. Liver cirrhosis/HCV/HBV With associated elevated LFTs, bilirubin, coagulopathy, hyperammonemia, and hypoalbuminemia History of heavy alcohol abuse but quit 5 years ago S/p treatment with Harvoni and recently tenofovir was prescribed with diagnosis of hepatitis B the patient was apparently not compliant Previously worked up in [facility] for liver transplant 2016 but unfortunately was not a candidate due to social issues and lack of support Last EGD and colonoscopy in November 2016, portal hypertensive gastropathy noted on EGD otherwise both exams were normal GI following HBV DNA quantitative log elevated, Hep B DNA elevated, Hep B & core IgM antibody reactive, hep C IgG reactive. - GI recommends follow-up as outpatient in clinic when discharged. Continue spironolactone, Lasix, lactulose. -Increased leg edema and visible ascites, GI has added spironolactone and started Nadolol for PHTN -T bili still high, LFTs stable -Avoid hepatotoxins, continue to monitor INR and LFTs 4. Acute metabolic encephalopathy secondary to liver disease -Lactulose 4 times daily, ammonia levels 95-->118 -GI following, started on Xifaxan 5. Coagulopathy/possible DIC -INR continuing to increase today 2.4 - Fibrinogen dropped again 35, transfuse with 1unit of cryoprecipitate as recommended by hem/onc, recheck in a.m. - Hem/onc. following 6. Hypokalemia Continue KCl PO 20 mEq daily 7. Dry eyes Exam is nonrevealing Continue refresh eyedrops TID PRN DVT prophylaxis: holding chemical anticoagulation given coagulopathy and elevated INR, thrombocytopenia Palliative care has reached out to brother however phone number which patient provided does not seem to be accurate. 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 Discharge Planning: Pending Hem/onc clearance and GI clearance. Patient is originally from [facility] in [place] however unable to transfer back to [place] as there is no available parachute mender/oncologist which will continue to follow him during his stay.
[2018-05-09] MEDS: Carboxymethylcellulose 0.5% Opth Drops 15 ML Bottle EACH EYE PRN (13:48)
[2018-05-09] MEDS: Ferrous Sulfate 325 MG Tablet PO SCH ×2 (13:48→17:40)
[2018-05-09] MEDS: Morphine Inj 4 MG/ML Vial IV.PUSH PRN (13:49)
--- NOTE | 2018-05-09 14:21 | P.PNONC ---
Subjective Interval history: Afebrile Patient reports he is feeling somewhat better Planning to walk the halls States he walked 7 laps yesterday Still with poor appetite Objective Vital Signs/Intake & Output: Vital Signs 05/08/18 16:00 05/08/18 20:00 05/09/18 00:00 Temperature 98.0 F 98.2 F 98.1 F Pulse Rate 87 68 62 Respiratory Rate 17 18 18 Blood Pressure 112/57 L 100/57 L 102/52 L Pulse Oximetry 99 99 97 05/09/18 08:00 05/09/18 12:00 Temperature 98.0 F 98.0 F Pulse Rate 73 95 H Respiratory Rate 18 18 Blood Pressure 96/53 L 108/56 L Pulse Oximetry 99 99 Intake & Output 05/08/18 05/09/18 05/09/18 18:59 06:59 18:59 Intake Total 2049 2480 / 2480 Output Total 650 / 650 Balance 2049 1830 / 1830 Weight 193 lb 5.526 oz Intake: IV 1250 / 1250 1999 / 1999 NS Inj 1,000 ML @ 125 mls/hr IV 1000 / 1000 1999 / 1999 .CONT .Q8H NIRAJ Rx#:[id number] NS Inj 250 ML @ 15 mls/hr IV. 250 / 250 SIG ONCE NIRAJ Rx#:[id number] Oral 800 / 800 480 / 480 Output: Urine 650 / 650 Other: # Voids 6 # Bowel Movements 1 Result Diagrams: 05/08/18 04:56 05/08/18 04:56 Laboratory Results: Laboratory Results - last 24 hr 05/09/18 09:10 Ammonia 118 H Culture Results: Microbiology 05/07/18 18:30 Urine Culture - Final Clean Catch Urine No growth in 48 hours Medications: Active Medications Generic Name Dose Route Start Last Admin Trade Name Freq PRN Reason Stop Dose Admin Artificial Tears 1 drop 05/04/18 13:00 05/09/18 13:48 Refresh Tears 0.5% Opth Drops EACH EYE 1 drop TID PRN Administration DRY EYE(S) Ferrous Sulfate 325 mg 04/30/18 17:00 05/09/18 13:48 Ferosul PO 325 mg BID@1200,1700 NIRAJ Administration Fluconazole 200 mg 05/05/18 15:00 05/09/18 08:18 Diflucan PO 05/19/18 14:59 200 mg DAILY NIRAJ Administration Furosemide 20 mg 05/02/18 09:00 05/09/18 08:18 Lasix PO 20 mg DAILY NIRAJ Administration Lactulose 30 ml 04/29/18 06:28 05/05/18 20:49 Lactulose Liq PO 30 ml DAILY PRN Administration SEVERE CONSITIPATION Lactulose 30 ml 05/05/18 18:00 05/09/18 13:48 Lactulose Liq PO 30 ml QID NIRAJ Administration Morphine Sulfate 4 mg 05/09/18 11:28 05/09/18 13:49 Morphine Inj IV.PUSH 4 mg Q4H PRN Administration PAIN 2-10 IF CANT TAKE PO Nadolol 20 mg 05/08/18 13:30 05/09/18 08:18 Corgard PO 20 mg DAILY NIRAJ Administration Ondansetron HCl 4 mg 05/08/18 14:10 05/09/18 08:17 Zofran Inj IV.PUSH 4 mg Q6H PRN Administration NAUSEA OR VOMITING Pantoprazole Sodium 40 mg 05/02/18 09:00 05/09/18 08:18 Protonix PO 40 mg DAILY NIRAJ Administration Potassium Chloride 20 meq 05/04/18 09:00 05/09/18 08:18 K-Dur PO 20 meq DAILY NIRAJ Administration Rifaximin 550 mg 05/08/18 13:30 05/09/18 08:18 Xifaxan PO 550 mg Q12HR NIRAJ Administration Sodium Chloride 2 ml 04/29/18 09:00 05/09/18 08:18 Ns Flush IV.FLUSH Not Given BID NIRAJ Sodium Chloride 2 ml 04/29/18 06:49 05/05/18 16:16 Ns Flush IV.FLUSH 2 ml PRN PRN Administration FLUSH AFTER USING IV ACCESS Spironolactone 100 mg 05/08/18 13:30 05/09/18 08:18 Aldactone PO 100 mg DAILY NIRAJ Administration Tenofovir Disoproxil Fumarate 300 mg 05/06/18 18:00 05/09/18 08:18 Viread PO 300 mg DAILY NIRAJ Administration Objective Remarks: GENERAL: Chronically ill-appearing male patient, occasionally wincing throughout exam. SKIN: + Jaundice, warm and dry. Ecchymosis to left shoulder and arm. HEAD: Normocephalic. EYES: + scleral icterus. No injection or drainage. NECK: Supple, trachea midline. CARDIOVASCULAR: Regular rate and rhythm 3/6 systolic murmur aortic listening area. RESPIRATORY: Breath sounds equal bilaterally. Non-labored at rest. GASTROINTESTINAL: Abdomen soft. Tender to right lower quadrant. EXTREMITIES: No cyanosis, or edema. Venous stasis changes to bilateral lower extremities. MUSCULOSKELETAL: Generalized weakness NEUROLOGICAL: No obvious focal deficit. Awakens to voice, and oriented x3. Assessment/Plan - Plan Mr. Valadez is a pleasant 58-year-old gentleman with a history of hepatitis C and cirrhosis, recently diagnosed with hepatitis B. patient was transferred here from [facility] for urology care. He was diagnosed with a ureteral calculus with obstruction. Hematology was consulted for pancytopenia. Plan: 1. Fibrinogen noted to be low yesterday. Will reassess today. He is not having any bleeding. Transfuse cryoprecipitate for less than 100. 2. Continue to monitor CBC. Monitor for bleeding. 3. Cirrhosis, with hepatitis B and C management per gastroenterology. 4. UTI and staghorn calculus, management per urology and attending. - Attending Statement The exam, history, and the medical decision-making described in the above note were completed with the assistance of the mid-level provider. I reviewed and agree with the findings presented. I attest that I had a [id number] encounter with the patient on the same day, and personally performed and documented my assessment and findings in the medical record. 58 yoM with cirrhosis, splenomegaly pancytopenia coagulopathy. Hypofibrinogenemis is often seen in patients with advanced liver disease due to compromise of the synthetic function of the liver leading to reduced production of both fibrinogen and factors in coagulation cascade. Difficult to assess impact of dysfibrinogenmia on patients with liver disease as liver disease has changes in body's natural procoagulands and anticoagulants. Hold on further cryo transfusion unless evidence of bleeding. Pancytopenia due to cirrhosis, congestive splenomegaly. Continue to trend counts.
--- NOTE | 2018-05-09 15:20 | P.PNGI ---
Subjective Interval history: Patient reports he is feeling somewhat better appetite fair. Denies any noted bleeding. <Kely Lloyd - Last Filed: 05/09/18 15:10> Interval history: Seen and examined with IRON MELTER, roxanna moseleyn. GI will sign off. GI fu upon dc please. Thank you The exam, history, and the medical decision-making described in the above note were completed with the assistance of the mid-level provider. I reviewed and agree with the findings presented. I attest that I had a [id number] encounter with the patient on the same day, and personally performed and documented my assessment and findings in the medical record. <Pema Lyn - Last Filed: 05/09/18 17:21> Physical Exam Vital signs: Vital Signs 05/08/18 16:00 05/08/18 20:00 05/09/18 00:00 Temperature 98.0 F 98.2 F 98.1 F Pulse Rate 87 68 62 Respiratory Rate 17 18 18 Blood Pressure 112/57 L 100/57 L 102/52 L Pulse Oximetry 99 99 97 05/09/18 08:00 05/09/18 12:00 Temperature 98.0 F 98.0 F Pulse Rate 73 95 H Respiratory Rate 18 18 Blood Pressure 96/53 L 108/56 L Pulse Oximetry 99 99 Intake & Output 05/08/18 05/09/18 05/09/18 18:59 06:59 18:59 Intake Total 2049 2480 / 2480 Output Total 650 / 650 Balance 2049 1830 / 1830 Weight 87.7 kg Intake: IV 1250 / 1250 1999 NS Inj 1,000 ML @ 125 mls/hr IV 1000 / 1000 1999 .CONT .Q8H NIRAJ Rx#:[id number] NS Inj 250 ML @ 15 mls/hr IV. 250 / 250 SIG ONCE NIRAJ Rx#:[id number] Oral 800 / 800 480 / 480 Output: Urine 650 / 650 Other: # Voids 6 # Bowel Movements 1 - Constitutional no acute distress - Routine HEENT Exam Head: Present: normocephalic Eye: Present: conjunctival icterus - Routine Respiratory Exam Present: CTA bilaterally - Routine Cardiovascular Exam Present: RRR - Routine Abdominal Exam Present: normoactive bowel sounds, distended - Routine Extremities Exam Present: edema. Absent: cyanosis - Routine Skin Exam Present: dry, warm, jaundice - Routine Neurological Exam Present: alert, oriented X3 - Detailed Neurological Exam: Coma Scale Eye Opening: Spontaneous Verbal Response: Oriented - Routine Psychiatric Exam Present: normal affect, cooperative <Kely Lloyd - Last Filed: 05/09/18 15:10> Vital signs: Vital Signs 05/08/18 20:00 05/09/18 00:00 05/09/18 08:00 Temperature 98.2 F 98.1 F 98.0 F Pulse Rate 68 62 73 Respiratory Rate 18 18 18 Blood Pressure 100/57 L 102/52 L 96/53 L Pulse Oximetry 99 97 99 05/09/18 12:00 05/09/18 16:00 Temperature 98.0 F 98.0 F Pulse Rate 95 H 59 L Respiratory Rate 18 14 Blood Pressure 108/56 L 120/61 Pulse Oximetry 99 99 Intake & Output 05/08/18 05/09/18 05/09/18 18:59 06:59 18:59 Intake Total 2049 2480 / 2480 Output Total 650 / 650 Balance 2049 1830 / 1830 Weight 87.7 kg Intake: IV 1250 / 1250 1999 NS Inj 1,000 ML @ 125 mls/hr IV 1000 / 1000 1999 .CONT .Q8H NIRAJ Rx#:[id number] NS Inj 250 ML @ 15 mls/hr IV. 250 / 250 SIG ONCE NIRAJ Rx#:[id number] Oral 800 / 800 480 / 480 Output: Urine 650 / 650 Other: # Voids 6 # Bowel Movements 1 <Pema Lyn - Last Filed: 05/09/18 17:21> Results - Labs CBC & Chem 7: 05/08/18 04:56 05/08/18 04:56 Laboratory Results - last 24 hr 05/09/18 09:10 Ammonia 118 H Microbiology 05/07/18 18:30 Clean Catch Urine Urine Culture - Final No growth in 48 hours <Kely Lloyd - Last Filed: 05/09/18 15:10> - Labs CBC & Chem 7: 05/08/18 04:56 05/08/18 04:56 Laboratory Results - last 24 hr 05/09/18 05/09/18 09:10 16:25 Fibrinogen 35 L* Ammonia 118 H Microbiology 05/07/18 18:30 Clean Catch Urine Urine Culture - Final No growth in 48 hours <Pema Lyn - Last Filed: 05/09/18 17:21> Assessment and Plan (1) Liver cirrhosis Status: Acute Code(s): K74.60 - Unspecified cirrhosis of liver (2) Hep C w/o coma, chronic Status: Acute Code(s): B18.2 - Chronic viral hepatitis C - Plan 05/07/18-Liver cirrhosis-most recent labs 05/06/2018 revealed total bilirubin of 7.6 AST of 300 ALT 157 alkaline phosphatase 123 ammonia level 136 albumin 1.6. Discussed liver function with the patient who is aware of worsening values. We will continue to monitor. Chronic hepatitis C/acute hepatitis B-patient with history of chronic hepatitis C currently restarted on antiviral for same (Tenofovir). Patient denies any known reason for pablo acute hepatitis B. Discussed precautions with patient as well as risk factors and he verbalizes understanding. 05/08/2018 patient appears to have slow gradual decline as far as his mental status and some mild to moderate anxiety today. Some nausea and vomiting at lunchtime acute onset. Discussed again with patient his liver disease and the need for medical management even when he is out of the hospital. Current ammonia level 95 today albumin 1.5, bilirubin 7.8, AST 260 ALT 145, alkaline phosphatase 119 PT/INR 1.8. Noted mild trend of bilirubin increasing but liver enzymes mild decrease. Discuss with patient his support system when getting out of the hospital and states that he is supposed to talk to case management sometime today. States he does have a brother who does not seem to understand how serious his condition is which worries him as far. Palliative care team on board which might could assist with contact to brother if patient agrees. According to the record patient will be going home with a female friend who will assist him. States last bowel movement this past p.m. so questionable effectiveness of lactulose. Overall poor prognosis and general decline noted. Due to patient's portal hypertensive gastropathy, added further medication management to his regimen Encephalopathy appears to be worsened today. Patient is now on VIREAD 05/09/18-patient awake and alert reported one episode of nausea last evening. Denies same at this time. Denies any obvious bleeding. Discussed plan of care with patient. Patient aware of poor prognosis. Appropriate during exam today. 05/08/2016 hemoglobin 10.6 hematocrit 31.3 total bilirubin 7.8 AST 260 ALT 145 alk phos 119 ammonia level 118. Palliative care consulted and following patient during this hospital course. We will continue to monitor. Plan: -Diet as tolerated -Lactulose, Xifaxan, spironolactone, nadolol -Continue PPI and antiemetic as needed -Pain medication as per attending -Continue tenofovir antiretroviral -Monitor ammonia -Monitor for change in mental status -Supportive care -Further recommendations to follow This patient has been seen by myself in Dr. Lyn and this note is written on his behalf - Attending Attestation Dr. Lyn <Kely Lloyd - Last Filed: 05/09/18 15:10> (1) Liver cirrhosis Status: Acute Code(s): K74.60 - Unspecified cirrhosis of liver (2) Hep C w/o coma, chronic Status: Acute Code(s): B18.2 - Chronic viral hepatitis C <Pema Lyn - Last Filed: 05/09/18 17:21> <Kely Lloyd - Last Filed: 05/09/18 15:10> (1) Liver cirrhosis Qualifiers: Hepatic cirrhosis type: other cirrhosis Qualified Code(s): K74.69 - Other cirrhosis of liver <Pema Lyn - Last Filed: 05/09/18 17:21> (1) Liver cirrhosis Qualifiers: Hepatic cirrhosis type: other cirrhosis Qualified Code(s): K74.69 - Other cirrhosis of liver
[2018-05-10 05:54] LABS: Baso % (Auto) 1.2 % (0.0-2.0); Eos # (Auto) 0.1 th/mm3 (0.0-0.4); Eos % (Auto) 3.2 % (0.0-4.0); Hematocrit 25.1 % (39.0-51.0); Hemoglobin 8.7 gm/dL (13.0-17.0); Lymph # (Auto) 0.8 th/mm3 (1.0-4.8); Lymph % (Auto) 24.9 % (9.0-44.0); Mean Corpuscular HGB Conc 34.7 % (32.0-36.0); Mean Corpuscular Hemoglobin 36.4 pg (27.0-34.0); Mean Corpuscular Volume 104.9 fL (80.0-100.0); Mean Platelet Volume 8.5 fL (7.0-11.0); Mono # (Auto) 0.3 th/mm3 (0.0-0.9); Mono % (Auto) 9.5 % (0.0-8.0); Neut % (Auto) 61.2 % (16.0-70.0); Platelet Count 51 th/mm3 (150-450); Red Cell Distribution Width 16.8 % (11.6-17.2); White Blood Count 3.3 th/mm3 (4.0-11.0)
[2018-05-10 06:16] LABS: INR 1.9 Ratio; Prothrombin Time 19.2 sec (9.8-11.6)
[2018-05-10 06:19] LABS: Alanine Aminotransferase 139 U/L (12-78); Albumin 1.6 g/dL (3.4-5.0); Anion Gap 8 meq/L (5-15); Aspartate Aminotransferase 268 U/L (15-37); Blood Urea Nitrogen 4 mg/dL (7-18); Calcium 7.5 mg/dL (8.5-10.1); Carbon Dioxide 28.2 meq/L (21.0-32.0); Chloride 108 meq/L (98-107); Glomerular Filtration Rate Greater Than 89 mL/min (>89); Glucose,Random 94 mg/dL (74-106); Potassium 3.5 meq/L (3.5-5.1); Sodium 144 meq/L (136-145)
[2018-05-10 06:21] LABS: Alkaline Phosphatase 117 U/L (45-117); Total Protein 6.1 g/dL (6.4-8.2)
[2018-05-10 07:15] LABS: Platelet Morphology Normal (Normal)
[2018-05-10] MEDS: Tenofovir 300 MG Tablet PO SCH (08:52)
[2018-05-10] MEDS: rifAXIMin 550 MG Tablet PO SCH ×2 (08:52→21:01)
[2018-05-10] MEDS: Furosemide 20 MG Tablet PO SCH (08:52)
[2018-05-10] MEDS: Nadolol 20 MG Tablet PO SCH (08:53)
[2018-05-10] MEDS: Sodium Chloride 0.9% 2 ML Flush BID IV.FLUSH SCH ×2 (08:53→21:01)
[2018-05-10] MEDS ORDERED: Acetaminophen 325 MG Tablet PO PRN (09:19)
[2018-05-10] MEDS ORDERED: Sodium Chlor 0.9% Inj 250 ML IV.SIG SCH (10:00)
--- NOTE | 2018-05-10 11:10 | P.PN ---
Subjective Interval history: Follow-up visit for liver disease, pancytopenia and hepatitis. Patient is seen and examined sitting up in bed in no acute distress. Reports he had a bowel movement this morning. Reports that his abdominal pain is better controlled with new medications. Denies any nausea or vomiting fevers or chills. No reports of bleeding, patient received 1 unit of cryoprecipitate yesterday for low fibrinogen. Physical Exam Vital signs: Vital Signs 05/09/18 12:00 05/09/18 16:00 05/09/18 18:51 Temperature 98.0 F 98.0 F 97.1 F L Pulse Rate 95 H 59 L 57 L Respiratory Rate 18 14 20 Blood Pressure 108/56 L 120/61 93/52 L Pulse Oximetry 99 99 99 05/09/18 20:00 05/10/18 00:00 05/10/18 08:00 Temperature 97.9 F 97.9 F 97.7 F Pulse Rate 57 L 63 63 Respiratory Rate 16 18 16 Blood Pressure 95/56 L 105/50 L 110/54 L Pulse Oximetry 99 100 96 Intake & Output 05/09/18 05/10/18 05/10/18 18:59 06:59 18:59 Intake Total 2200 / 2200 1000 / 1000 Output Total 1200 / 1200 900 / 900 Balance 1000 / 1000 100 / 100 Weight 88 kg Intake: IV 1000 / 1000 NS Inj 1,000 ML @ 125 mls/hr IV 1000 / 1000 .CONT .Q8H [facility] Rx#:[id number] Oral 2200 / 2200 Intake (Blood Product) Amt 0 / 0 0 / 0 Pre-Pooled Cryo Thawed 10units 0 / 0 0 / 0 Unit [id number] Output: Urine 1200 / 1200 900 / 900 Other: # Voids 0 # Bowel Movements 2 Narrative: GENERAL: Well-developed, well-nourished male resting in bed. SKIN: Warm and dry. HEENT: Scleral jaundice, pupils equal round reactive, mucous membranes pink and moist. NECK: Supple no JVD. HEART: Regular rhythm with 2/6 murmur. LUNGS: Breath sounds equal bilaterally without wheezing, crackles or rhonchi. ABDOMEN: +BS, soft, positive bowel sounds in all quadrants. Tenderness to RLQ. Ascites appears slightly improved. Scrotal edema slightly worse today. EXTREMITIES: Left upper extremity scattered ecchymosis. Bilateral lower extremity vascular discoloration. Bilateral lower extremity edema +1, bilateral upper extremities with trace edema. NEURO: Awake and alert. Oriented to self and place with some confusion. Moves all extremities without difficulty. PSYCH: Appropriate mood and affect. Results - Labs CBC & Chem 7: 05/10/18 04:45 05/10/18 04:45 Laboratory Results - last 24 hr 05/09/18 05/09/18 05/10/18 16:25 18:04 04:45 WBC 3.3 L RBC 2.40 L Hgb 8.7 L Hct 25.1 L MCV 104.9 H MCH 36.4 H MCHC 34.7 RDW 16.8 Plt Count 51 L MPV 8.5 Prelim Diff (Auto) Slide review pending Neut % (Auto) 61.2 Lymph % (Auto) 24.9 [place] % (Auto) 9.5 H Eos % (Auto) 3.2 Baso % (Auto) 1.2 Neut # (Auto) 2.0 Lymph # (Auto) 0.8 L [place] # (Auto) 0.3 Eos # (Auto) 0.1 Baso # (Auto) 0.0 WBC Differential . Diff Scan Auto diff confirmed Differential Comment . Platelet Estimate Low L Platelet Morphology Normal PT INR Fibrinogen 35 L* Sodium Potassium Chloride Carbon Dioxide Anion Gap BUN Creatinine Estimated GFR Random Glucose Calcium Total Bilirubin AST ALT Alkaline Phosphatase Total Protein Albumin Blood Bank Comment 05/10/18 05/10/18 04:45 04:45 WBC RBC Hgb Hct MCV MCH MCHC RDW Plt Count MPV Prelim Diff (Auto) Neut % (Auto) Lymph % (Auto) [place] % (Auto) Eos % (Auto) Baso % (Auto) Neut # (Auto) Lymph # (Auto) [place] # (Auto) Eos # (Auto) Baso # (Auto) WBC Differential Diff Scan Differential Comment Platelet Estimate Platelet Morphology PT 19.2 H INR 1.9 Fibrinogen 102 L Sodium 144 Potassium 3.5 Chloride 108 H Carbon Dioxide 28.2 Anion Gap 8 BUN 4 L Creatinine 0.86 Estimated GFR Greater than 89 Random Glucose 94 Calcium 7.5 L Total Bilirubin 9.3 H AST 268 H ALT 139 H Alkaline Phosphatase 117 Total Protein 6.1 L Albumin 1.6 L Blood Bank Comment Microbiology 05/07/18 18:30 Clean Catch Urine Urine Culture - Final No growth in 48 hours Assessment and Plan - Plan 58 YOWM with history of Hep B, Hep C, and liver cirrhosis admitted on 04/29 after being transferred from [facility] for staghorn renal calculus complicated by UTI. 1. Nephrolithiasis with UTI CT scan done at [facility] showing a 3.5 cm staghorn calculus in the right kidney with associated UTI. Patient was transferred to [facility] for on- call urology Urology consulted. No acute intervention needed but patient will need a PCNL in the future as an outpatient Reviewed U/A from [place] on 04/28 which showed + nitrite, + leukocytes, + bacteria and yeast, and final urine culture resulted on 05/01 showed no growth Urine culture from 04/30 done at [facility] growing Shante glabrata Stop Zosyn and change IV Diflucan to PO with plan to treat for a total of 2 weeks -Denies dysuria today, UA with no growth to date. - Abdominal pain improved with p.o Roxicodone and IV Morphine. 2. Pancytopenia HIV negative Heme/onc following, concern for possible DIC given prolonged PT and APTT, low fibrinogen, and elevated D-dimer Ultrasound of the spleen showed splenomegaly with prominent central splenic veins that may reflect portal hypertension given history of cirrhosis Remains hemodynamically stable. Continue to monitor CBC No active bleeding though patient having some bruising. Check stool for Hemoccult. 3. Liver cirrhosis/HCV/HBV With associated elevated LFTs, bilirubin, coagulopathy, hyperammonemia, and hypoalbuminemia History of heavy alcohol abuse but quit 5 years ago S/p treatment with Harvoni and recently tenofovir was prescribed with diagnosis of hepatitis B the patient was apparently not compliant Previously worked up in [facility] for liver transplant 2016 but unfortunately was not a candidate due to social issues and lack of support Last EGD and colonoscopy in November 2016, portal hypertensive gastropathy noted on EGD otherwise both exams were normal GI following HBV DNA quantitative log elevated, Hep B DNA elevated, Hep B & core IgM antibody reactive, hep C IgG reactive. - GI recommends follow-up as outpatient in clinic when discharged. Continue spironolactone, Lasix, lactulose. -Continue Nadolol for PHTN -T bili still high, LFTs stable -Avoid hepatotoxins, continue to monitor INR and LFTs 4. Acute metabolic encephalopathy secondary to liver disease -Continue Lactulose 4 times daily and Xifaxan -ammonia levels tomorrow 5. Coagulopathy/possible DIC -INR continuing to increase today 2.4 - Fibrinogen dropped again 35 s/p 1unit of cryoprecipitate as recommended by hem/onc, Fibrinogen this a.m 102. - Hem/onc. following 6. Hypokalemia Continue KCl PO 20 mEq daily 7. Dry eyes Exam is nonrevealing Continue refresh eyedrops TID PRN DVT prophylaxis: holding chemical anticoagulation given coagulopathy and elevated INR, thrombocytopenia Palliative care attempting to reach brother for appointed health care decision maker. Discussed Condition With: Patient, RN and GOMEZ Nava Discharge Planning: Pending Hem/onc clearance and GI clearance. Patient is originally from [facility] in [place] however unable to transfer back to [place] as there is no available vocational education teacher/oncologist which will continue to follow him during his stay.
[2018-05-10] MEDS: Ferrous Sulfate 325 MG Tablet PO SCH ×2 (12:16→17:09)
--- NOTE | 2018-05-10 12:22 | P.PNONC ---
Subjective Interval history: Afebrile Patient complains of some swollen testicles this morning No bleeding Objective Vital Signs/Intake & Output: Vital Signs 05/09/18 16:00 05/09/18 18:51 05/09/18 20:00 Temperature 98.0 F 97.1 F L 97.9 F Pulse Rate 59 L 57 L 57 L Respiratory Rate 14 20 16 Blood Pressure 120/61 93/52 L 95/56 L Pulse Oximetry 99 99 99 05/10/18 00:00 05/10/18 08:00 05/10/18 12:10 Temperature 97.9 F 97.7 F 98 F Pulse Rate 63 63 59 L Respiratory Rate 18 16 18 Blood Pressure 105/50 L 110/54 L 105/60 Pulse Oximetry 100 96 98 Intake & Output 05/09/18 05/10/18 05/10/18 18:59 06:59 18:59 Intake Total 2200 / 2200 1000 / 1000 0 / 0 Output Total 1200 / 1200 900 / 900 Balance 1000 / 1000 100 / 100 0 / 0 Weight 194 lb 0.108 oz Intake: IV 1000 / 1000 NS Inj 1,000 ML @ 125 mls/hr IV 1000 / 1000 .CONT .Q8H [facility] Rx#:[id number] Oral 2200 / 2200 Intake (Blood Product) Amt 0 / 0 0 / 0 0 / 0 Pre-Pooled Cryo Thawed 10units 0 / 0 Unit [id number] Pre-Pooled Cryo Thawed 10units 0 / 0 0 / 0 Unit [id number] Output: Urine 1200 / 1200 900 / 900 Other: # Voids 0 # Bowel Movements 2 Result Diagrams: 05/10/18 04:45 05/10/18 04:45 Laboratory Results: Laboratory Results - last 24 hr 05/09/18 05/09/18 05/10/18 16:25 18:04 04:45 WBC 3.3 L RBC 2.40 L Hgb 8.7 L Hct 25.1 L MCV 104.9 H MCH 36.4 H MCHC 34.7 RDW 16.8 Plt Count 51 L MPV 8.5 Prelim Diff (Auto) Slide review pending Neut % (Auto) 61.2 Lymph % (Auto) 24.9 [place] % (Auto) 9.5 H Eos % (Auto) 3.2 Baso % (Auto) 1.2 Neut # (Auto) 2.0 Lymph # (Auto) 0.8 L [place] # (Auto) 0.3 Eos # (Auto) 0.1 Baso # (Auto) 0.0 WBC Differential . Diff Scan Auto diff confirmed Differential Comment . Platelet Estimate Low L Platelet Morphology Normal PT INR Fibrinogen 35 L* Sodium Potassium Chloride Carbon Dioxide Anion Gap BUN Creatinine Estimated GFR Random Glucose Calcium Total Bilirubin AST ALT Alkaline Phosphatase Total Protein Albumin Blood Bank Comment 05/10/18 05/10/18 05/10/18 04:45 04:45 09:19 WBC RBC Hgb Hct MCV MCH MCHC RDW Plt Count MPV Prelim Diff (Auto) Neut % (Auto) Lymph % (Auto) [place] % (Auto) Eos % (Auto) Baso % (Auto) Neut # (Auto) Lymph # (Auto) [place] # (Auto) Eos # (Auto) Baso # (Auto) WBC Differential Diff Scan Differential Comment Platelet Estimate Platelet Morphology PT 19.2 H INR 1.9 Fibrinogen 102 L Sodium 144 Potassium 3.5 Chloride 108 H Carbon Dioxide 28.2 Anion Gap 8 BUN 4 L Creatinine 0.86 Estimated GFR Greater than 89 Random Glucose 94 Calcium 7.5 L Total Bilirubin 9.3 H AST 268 H ALT 139 H Alkaline Phosphatase 117 Total Protein 6.1 L Albumin 1.6 L Blood Bank Comment Culture Results: Microbiology 05/07/18 18:30 Urine Culture - Final Clean Catch Urine No growth in 48 hours Medications: Active Medications Generic Name Dose Route Start Last Admin Trade Name Freq PRN Reason Stop Dose Admin Artificial Tears 1 drop 05/04/18 13:00 05/09/18 13:48 Refresh Tears 0.5% Opth Drops EACH EYE 1 drop TID PRN Administration DRY EYE(S) Ferrous Sulfate 325 mg 04/30/18 17:00 05/10/18 12:16 Ferosul PO 325 mg BID@1200,1700 NIRAJ Administration Fluconazole 200 mg 05/05/18 15:00 05/10/18 08:53 Diflucan PO 05/19/18 14:59 200 mg DAILY NIRAJ Administration Furosemide 20 mg 05/02/18 09:00 05/10/18 08:52 Lasix PO 20 mg DAILY NIRAJ Administration Sodium Chloride 250 mls @ 15 mls/hr 05/10/18 10:00 05/10/18 12:13 Ns Inj IV.SIG 05/11/18 02:39 15 mls/hr ONCE NIRAJ Administration Lactulose 30 ml 04/29/18 06:28 05/05/18 20:49 Lactulose Liq PO 30 ml DAILY PRN Administration SEVERE CONSITIPATION Lactulose 30 ml 05/05/18 18:00 05/10/18 12:16 Lactulose Liq PO 30 ml QID NIRAJ Administration Morphine Sulfate 4 mg 05/09/18 11:28 05/09/18 13:49 Morphine Inj IV.PUSH 4 mg Q4H PRN Administration PAIN 2-10 IF CANT TAKE PO Nadolol 20 mg 05/08/18 13:30 05/10/18 08:53 Corgard PO 20 mg DAILY NIRAJ Administration Ondansetron HCl 4 mg 05/08/18 14:10 05/09/18 08:17 Zofran Inj IV.PUSH 4 mg Q6H PRN Administration NAUSEA OR VOMITING Oxycodone HCl 5 mg 05/09/18 14:09 05/10/18 06:04 Roxicodone PO 5 mg Q4H PRN Administration pain 2-10 Pantoprazole Sodium 40 mg 05/02/18 09:00 05/10/18 08:52 Protonix PO 40 mg DAILY NIRAJ Administration Potassium Chloride 20 meq 05/04/18 09:00 05/10/18 08:53 K-Dur PO 20 meq DAILY NIRAJ Administration Rifaximin 550 mg 05/08/18 13:30 05/10/18 08:52 Xifaxan PO 550 mg Q12HR NIRAJ Administration Sodium Chloride 2 ml 04/29/18 09:00 05/10/18 08:53 Ns Flush IV.FLUSH 2 ml BID NIRAJ Administration Sodium Chloride 2 ml 04/29/18 06:49 05/05/18 16:16 Ns Flush IV.FLUSH 2 ml PRN PRN Administration FLUSH AFTER USING IV ACCESS Spironolactone 100 mg 05/08/18 13:30 05/10/18 08:53 Aldactone PO 100 mg DAILY NIRAJ Administration Tenofovir Disoproxil Fumarate 300 mg 05/06/18 18:00 05/10/18 08:52 Viread PO 300 mg DAILY NIRAJ Administration Objective Remarks: GENERAL: Chronically ill-appearing male patient sitting up in bed in no obvious distress SKIN: + Jaundice, warm and dry. Ecchymosis to left shoulder and arm. HEAD: Normocephalic. EYES: + scleral icterus. No injection or drainage. NECK: Supple, trachea midline. CARDIOVASCULAR: Regular rate and rhythm 3/6 systolic murmur aortic listening area. RESPIRATORY: Breath sounds equal bilaterally. Non-labored at rest. GASTROINTESTINAL: Abdomen soft. Tender to right lower quadrant. EXTREMITIES: No cyanosis. Significant bilateral lower extremity edema. Venous stasis changes to bilateral lower extremities. MUSCULOSKELETAL: Generalized weakness NEUROLOGICAL: No obvious focal deficit. Awakens to voice, and oriented x3. Assessment/Plan - Plan Mr. Valadez is a pleasant 58-year-old gentleman with a history of hepatitis C and cirrhosis, recently diagnosed with hepatitis B. patient was transferred here from [facility] for urology care. He was diagnosed with a ureteral calculus with obstruction. Hematology was consulted for pancytopenia. Plan: 1. Fibrinogen was significantly low yesterday and he was given cryoprecipitate. No bleeding issues. 2. Continue to monitor for coagulopathy. Transfuse platelets only if he has bleeding. - Attending Statement The exam, history, and the medical decision-making described in the above note were completed with the assistance of the mid-level provider. I reviewed and agree with the findings presented. I attest that I had a [id number] encounter with the patient on the same day, and personally performed and documented my assessment and findings in the medical record. 58 yoF with liver cirrhosis, hypersplenism. Clinical picture of cytopenias due to cirrhosis predominates. Liver disease is also certainly contributing to low fibrinogen and Coagulopathy. fibrinogen is made in the liver cells. ? component of DIC. No evidence of hemodilution. Cotnineu to trend daily.
[2018-05-11] MEDS: rifAXIMin 550 MG Tablet PO SCH ×2 (08:48→21:21)
[2018-05-11] MEDS: Tenofovir 300 MG Tablet PO SCH (08:48)
[2018-05-11] MEDS: Nadolol 20 MG Tablet PO SCH (08:49)
[2018-05-11] MEDS: Furosemide 20 MG Tablet PO SCH (08:50)
[2018-05-11] MEDS: Sodium Chloride 0.9% 2 ML Flush BID IV.FLUSH SCH ×2 (08:51→21:21)
--- NOTE | 2018-05-11 11:26 | P.PN ---
Subjective Interval history: Follow-up visit for liver disease, pancytopenia and hepatitis. Patient seen and examined in bed in no acute distress. Reports that his pain is "a little bit better". Denies any further nausea, vomiting, fevers, chills, cough, shortness of breath or chest pain. 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 Physical Exam Vital signs: Vital Signs 05/10/18 12:00 05/10/18 12:10 05/10/18 12:15 Temperature 98.0 F 98 F 98 F Pulse Rate 59 L 59 L 59 L Respiratory Rate 16 18 18 Blood Pressure 105/60 105/60 100/50 L Pulse Oximetry 98 98 98 05/10/18 12:35 05/10/18 14:10 05/10/18 14:37 Temperature 98 F 97.9 F Pulse Rate 60 64 Respiratory Rate 18 18 18 Blood Pressure 100/50 L 97/51 L Pulse Oximetry 97 99 05/10/18 16:00 05/10/18 18:16 05/10/18 20:00 Temperature 98.0 F 98.6 F Pulse Rate 65 60 Respiratory Rate 14 18 16 Blood Pressure 92/55 L 97/56 L Pulse Oximetry 100 98 05/11/18 00:00 05/11/18 08:00 Temperature 98.0 F 98.5 F Pulse Rate 61 68 Respiratory Rate 18 16 Blood Pressure 107/59 L 90/48 L Pulse Oximetry 99 98 Intake & Output 05/10/18 05/11/18 05/11/18 18:59 06:59 18:59 Intake Total 2428 / 2428 30 / 30 Output Total 600 / 600 1100 / 1100 Balance 1828 / 1828 -1070 / -1070 Weight 58.3 kg Intake: IV 30 / 30 NS Inj 250 ML @ 15 mls/hr IV. 30 / 30 SIG ONCE NIRAJ Rx#:[id number] Oral 2199 Intake (Blood Product) Amt 228 / 228 Pre-Pooled Cryo Thawed 10units 228 / 228 Unit [id number] Output: Urine 600 / 600 1100 / 1100 Other: Date of Last Bowel Movement 05/10/18 Narrative: GENERAL: Well-developed, well-nourished male resting in bed. SKIN: Warm and dry. HEENT: Scleral jaundice, pupils equal round reactive, mucous membranes pink and moist. NECK: Supple no JVD. HEART: Regular rhythm with 2/6 murmur. LUNGS: Breath sounds equal bilaterally without wheezing, crackles or rhonchi. ABDOMEN: +BS, soft, positive bowel sounds in all quadrants. Diffused abdominal tenderness. Ascites. Scrotal edema slightly improved today. EXTREMITIES: Left upper extremity scattered ecchymosis. Bilateral lower extremity vascular discoloration. Bilateral lower extremity edema +2, bilateral upper extremities with trace edema. NEURO: Awake and alert. Oriented to self and place with some confusion. Moves all extremities without difficulty. PSYCH: Appropriate mood and affect. Results - Labs CBC & Chem 7: 05/11/18 11:22 05/10/18 04:45 Laboratory Results - last 24 hr 05/10/18 05/11/18 09:19 06:50 Ammonia 106 H Blood Bank Comment Assessment and Plan - Plan 58 YOWM with history of Hep B, Hep C, and liver cirrhosis admitted on 04/29 after being transferred from [facility] for staghorn renal calculus complicated by UTI. 1. Nephrolithiasis with UTI CT scan done at [facility] showing a 3.5 cm staghorn calculus in the right kidney with associated UTI. Patient was transferred to [facility] for on- call urology Urology consulted. No acute intervention needed but patient will need a PCNL in the future as an outpatient Reviewed U/A from [place] on 04/28 which showed + nitrite, + leukocytes, + bacteria and yeast, and final urine culture resulted on 05/01 showed no growth Urine culture from 04/30 done at [place] growing Shante glabrata Stop Zosyn and change IV Diflucan to PO with plan to treat for a total of 2 weeks -UA with no growth to date. - Abdominal pain improved with p.o Roxicodone and IV Morphine. 2. Pancytopenia HIV negative Heme/onc following, concern for possible DIC given prolonged PT and APTT, low fibrinogen, and elevated D-dimer Ultrasound of the spleen showed splenomegaly with prominent central splenic veins that may reflect portal hypertension given history of cirrhosis Remains hemodynamically stable. Continue to monitor CBC No active bleeding though patient having some bruising. Hemoccult negative. 3. Liver cirrhosis/HCV/HBV With associated elevated LFTs, bilirubin, coagulopathy, hyperammonemia, and hypoalbuminemia History of heavy alcohol abuse but quit 5 years ago S/p treatment with Harvoni and recently tenofovir was prescribed with diagnosis of hepatitis B the patient was apparently not compliant Previously worked up in [facility] for liver transplant 2016 but unfortunately was not a candidate due to social issues and lack of support Last EGD and colonoscopy in November 2016, portal hypertensive gastropathy noted on EGD otherwise both exams were normal GI following HBV DNA quantitative log elevated, Hep B DNA elevated, Hep B & core IgM antibody reactive, hep C IgG reactive. - GI recommends follow-up as outpatient in clinic when discharged. Continue spironolactone, Lasix, lactulose. -Continue Nadolol for PHTN -T bili still high, LFTs stable -Avoid hepatotoxins, continue to monitor INR and LFTs 4. Acute metabolic encephalopathy secondary to liver disease -Continue Lactulose 4 times daily and Xifaxan -ammonia levels slightly improved to 106 today. 5. Coagulopathy/possible DIC -INR today 1.8 - s/p multiple cryoprecipitate transfusions, fibrinogen today 139 - Hem/onc. following, they have cleared patient to be discharged or transferred back to [place] and follow-up with Hem/onc near home. 6. Hypokalemia Continue KCl PO 20 mEq daily 7. Dry eyes Exam is nonrevealing Continue refresh eyedrops TID PRN DVT prophylaxis: holding chemical anticoagulation given coagulopathy and elevated INR, thrombocytopenia CM spoke with brother and they have obtained a cell phone number, this was provided to palliative care. Discussed Condition With: Patient, RN and CM Discharge Planning: Hem/onc. cleared for DC. Patient from [facility] in [place] however unable to transfer back to [place] as patient is homeless. CM aware and assisting with transfer or discharge.
[2018-05-11] MEDS: Morphine Inj 4 MG/ML Vial IV.PUSH PRN ×3 (11:47→23:54)
[2018-05-11 11:57] LABS: Hematocrit 30.1 % (39.0-51.0); Hemoglobin 10.3 gm/dL (13.0-17.0); Mean Corpuscular HGB Conc 34.2 % (32.0-36.0); Mean Corpuscular Hemoglobin 35.7 pg (27.0-34.0); Mean Corpuscular Volume 104.3 fL (80.0-100.0); Mean Platelet Volume 8.8 fL (7.0-11.0); Platelet Count 55 th/mm3 (150-450); Red Blood Count 2.89 mil/mm3 (4.50-5.90); Red Cell Distribution Width 17.1 % (11.6-17.2)
[2018-05-11] MEDS: Ferrous Sulfate 325 MG Tablet PO SCH ×2 (12:12→17:26)
[2018-05-11 12:24] LABS: Activated Partial Thrombo Time 40.1 sec (24.3-30.1); INR 1.8 Ratio; Prothrombin Time 18.7 sec (9.8-11.6)
--- NOTE | 2018-05-11 14:21 | P.PNONC ---
Subjective Interval history: Patient lying in bed, sleeping on approach. Awakens easily to voice. Reports feeling "the same" Objective Vital Signs/Intake & Output: Vital Signs 05/10/18 14:10 05/10/18 14:37 05/10/18 16:00 Temperature 97.9 F 98.0 F Pulse Rate 64 65 Respiratory Rate 18 18 14 Blood Pressure 97/51 L 92/55 L Pulse Oximetry 99 100 05/10/18 18:16 05/10/18 20:00 05/11/18 00:00 Temperature 98.6 F 98.0 F Pulse Rate 60 61 Respiratory Rate 18 16 18 Blood Pressure 97/56 L 107/59 L Pulse Oximetry 98 99 05/11/18 08:00 05/11/18 12:00 Temperature 98.5 F 98.1 F Pulse Rate 68 65 Respiratory Rate 16 16 Blood Pressure 90/48 L 99/62 L Pulse Oximetry 98 100 Intake & Output 05/10/18 05/11/18 05/11/18 18:59 06:59 18:59 Intake Total 2428 / 2428 30 / 30 Output Total 600 / 600 1100 / 1100 Balance 1828 / 1828 -1070 / -1070 Weight 58.3 kg Intake: IV 30 / 30 NS Inj 250 ML @ 15 mls/hr IV. 30 / 30 SIG ONCE [facility] Rx#:[id number] Oral 0 / 2200 Intake (Blood Product) Amt 228 / 228 Pre-Pooled Cryo Thawed 10units 228 / 228 Unit [id number] Output: Urine 600 / 600 1100 / 1100 Other: Date of Last Bowel Movement 05/10/18 Result Diagrams: 05/11/18 11:22 05/10/18 04:45 Laboratory Results: Laboratory Results - last 24 hr 05/11/18 05/11/18 05/11/18 06:50 11:22 11:22 WBC 3.0 L RBC 2.89 L Hgb 10.3 L Hct 30.1 L MCV 104.3 H MCH 35.7 H MCHC 34.2 RDW 17.1 Plt Count 55 L MPV 8.8 PT 18.7 H INR 1.8 APTT 40.1 H Fibrinogen 139 L Ammonia 106 H Culture Results: Microbiology 05/07/18 18:30 Urine Culture - Final Clean Catch Urine No growth in 48 hours Medications: Active Medications Generic Name Dose Route Start Last Admin Trade Name Freq PRN Reason Stop Dose Admin Artificial Tears 1 drop 05/04/18 13:00 05/09/18 13:48 Refresh Tears 0.5% Opth Drops EACH EYE 1 drop TID PRN Administration DRY EYE(S) Ferrous Sulfate 325 mg 04/30/18 17:00 05/11/18 12:12 Ferosul PO 325 mg BID@1200,1700 NIRAJ Administration Fluconazole 200 mg 05/05/18 15:00 05/11/18 08:49 Diflucan PO 05/19/18 14:59 200 mg DAILY NIRAJ Administration Furosemide 20 mg 05/02/18 09:00 05/11/18 08:50 Lasix PO 20 mg DAILY NIRAJ Administration Lactulose 30 ml 04/29/18 06:28 05/05/18 20:49 Lactulose Liq PO 30 ml DAILY PRN Administration SEVERE CONSITIPATION Lactulose 30 ml 05/05/18 18:00 05/11/18 12:12 Lactulose Liq PO 30 ml QID NIRAJ Administration Morphine Sulfate 4 mg 05/09/18 11:28 05/11/18 11:47 Morphine Inj IV.PUSH 4 mg Q4H PRN Administration PAIN 2-10 IF CANT TAKE PO Nadolol 20 mg 05/08/18 13:30 05/11/18 08:49 Corgard PO Not Given DAILY NIRAJ Ondansetron HCl 4 mg 05/08/18 14:10 05/09/18 08:17 Zofran Inj IV.PUSH 4 mg Q6H PRN Administration NAUSEA OR VOMITING Oxycodone HCl 5 mg 05/09/18 14:09 05/11/18 08:48 Roxicodone PO 5 mg Q4H PRN Administration pain 2-10 Pantoprazole Sodium 40 mg 05/02/18 09:00 05/11/18 08:49 Protonix PO 40 mg DAILY NIRAJ Administration Potassium Chloride 20 meq 05/04/18 09:00 05/11/18 08:49 K-Dur PO 20 meq DAILY NIRAJ Administration Rifaximin 550 mg 05/08/18 13:30 05/11/18 08:48 Xifaxan PO 550 mg Q12HR NIRAJ Administration Sodium Chloride 2 ml 04/29/18 09:00 05/11/18 08:51 Ns Flush IV.FLUSH 2 ml BID NIRAJ Administration Sodium Chloride 2 ml 04/29/18 06:49 10/02/18 16:16 Ns Flush IV.FLUSH 2 ml PRN PRN Administration FLUSH AFTER USING IV ACCESS Spironolactone 100 mg 05/08/18 13:30 05/11/18 08:48 Aldactone PO 100 mg DAILY NIRAJ Administration Tenofovir Disoproxil Fumarate 300 mg 05/06/18 18:00 05/11/18 08:48 Viread PO 300 mg DAILY NIRAJ Administration Zinc Sulfate 220 mg 05/10/18 19:00 05/11/18 08:49 Zinc-220 PO 220 mg DAILY NIRAJ Administration Objective Remarks: GENERAL: Chronically ill-appearing male patient, in no acute distress. SKIN: + Jaundice, warm and dry. Bruising in multiple stages of healing to left shoulder and arm. HEAD: Normocephalic. EYES: + scleral icterus. No injection or drainage. NECK: Supple, trachea midline. CARDIOVASCULAR: Regular rate and rhythm 3/6 systolic murmur aortic listening area. RESPIRATORY: Breath sounds equal bilaterally. Non-labored at rest. GASTROINTESTINAL: Abdomen soft, non-tender, nondistended. +BS. EXTREMITIES: No cyanosis, or edema. Chronic discoloration to bilateral lower extremities. MUSCULOSKELETAL: Adequate muscle tone. NEUROLOGICAL: No obvious focal deficit. Awakens to voice, and oriented x3. PSYCHIATRIC: Appropriate mood and affect; insight and judgment normal. Assessment/Plan - Plan Mr. Valadez is a pleasant 58-year-old gentleman with a history of hepatitis C and cirrhosis, recently diagnosed with hepatitis B. patient was transferred here from [facility] for urology care. He was diagnosed with a ureteral calculus with obstruction. Hematology was consulted for pancytopenia. Plan: 1. Pancytopenia, secondary to liver disease and splenomegaly. Platelets and hemoglobin continue to improve. No evidence of bleeding noted. 2. Liver cirrhosis and hepatitis B and C, management per GI. 3. Hypercoagulable state due to splenomegaly and liver disease. Continue to monitor for bleeding. 4. Pancytopenia and hypercoagulable state, likely chronic in nature due to liver cirrhosis, hepatitis B and C and splenomegaly. From a hematology standpoint, patient could be discharged or transferred back to [place] and follow-up with a shactor near his home, upon discharge.
--- NOTE | 2018-05-11 16:58 | P.PNPAL ---
Reason for Visit Reason for visit: a. To assist with evaluation and management of symptoms including: Encephalopathy, pain b. To assist medical decision maker(s) with: better understanding of current medical conditions; weighing benefits/burdens of medical treatment options; making medical treatment decisions. Subjective Subjective/Interval History: This 58-year-old patient who was transferred here to [facility] from [facility] in [place] on 04/29/18. There he had gone for evaluation of right-sided abdominal pain on 04/28. He also presented with constipation and dark urine. Abdominal CT indicative of portal hypertension changes, cirrhotic liver, and 3.5 cm staghorn calculus right kidney with possible mild duodenitis and cholelithiasis. + pancytopenia, + UTI - started on zosyn IV. He was transferred to [place] due to staghorn calculus w concomitant infection, and requiring a urologist evaluation. also noted to have chronic hep C, cirrhosis, stable. Pt seen today to follow up on comfort, goals with pt and/or decision maker. editorial project manager called me today before my arrival on unit; notified me she had been in touch with his brother and provided additional contact number for him. PT stable, however total bilirubin continues to increase now is to 9.3. AST 268 , ALT 139. Ammonia 106. H&H improved 10.3/30.1 Platelets 55. Having bowel movements. Voiding. Oncology continues to follow Pancytopenia felt to be secondary to liver disease and splenomegaly. Hematology notes patient stable for transfer back to [place] if indicated, can follow with hematology outpatient. Dual visit yuliana Cheema APRN. Pt seen in room no visitors. Alert, partially oriented. Watching baseball game on television when I asked him what his favorite team is he tells me "dolphins ". He is unable to state where he is at other than " the same thing you guys keep asking me the same questions". He tells me he is here because his right abdomen is hurting him. Endorses appetite fair, not great. Denies any other GI complaints like nausea and vomiting. Denies shortness of breath. Indicates having bowel movements and voiding. Continues to have right abdominal pain with some relief when using prn. He does remember free me from last week he says I'm " the one that was supposed to be calling his brother". Advised I did call his brother but that number was not working. editorial project manager has provided me with a new number. He asks if I will again call his brother to update him on his conditions that "his brother will believe me". He is unable to provide me additional details about his medical conditions. Gently explore he is experiencing acute liver failure and he is being treated for that. He tells me he wants to keep trying to get better. Advised I would call his brother. He does NOT appear able to make insightful decisions at this time. Recommend cont to use brother Arley/Clifton whom he has designated as HCS. editorial project manager has obtained current number Discussed with medical attending RECREATION ACTIVITIES COORDINATOR Family/Friend Interactions: Following exam call to patient brother per patient's request. Brother indicates he is not spoken with any medical providers yet. Brother provided additional psychosocial history reports the patient "burned all his bridges "with the family. Brother is aware that patient has had some liver failure and hepatitis he is not sure if he was actually evaluated for transplant though he presumes that he was. He indicated his brother moved in with him for about a year and a half in [place] that he "took him" because his brother indicated he had been declined for transplant was not a candidate needed to establish good psychosocial support, hence brother took him in. Indicates patient at times has not been forthcoming about his medical conditions or issues. Indicates he tried to get him in a mental facility at one point for depression because the patient would go a month without showering any thing. Indicates that he is aware of patient may have had hematuria and renal stone issues for a year or more. Indicates in the past patient had a renal stent placed he is not aware what ever came of that. He indicates most recently that the patient did move in with a good friend however the roommate indicates that patient was not being truthful with her, and he is not able to move back in there due to concerns about hygiene etc. This roommate did help him try to start disability paperwork. Brother indicates he did have coverage under [employer] of Medicaid in [place]. That he is aware of patient has only been back in [place] maybe since March of this year. Patient brother lives in [place]. Brother is unable to care for the patient due to needing to take care of his own family and prior strain that Mr. Valadez put when he took him in. He is willing to remain available to assist with decision-making. Review with him: Palliative care role, purpose, approach current medical problems, dx, treatments in place prognosis; review of current medical treatment options and benefits/ burdens/limitations of those options Legal decision makers-review patient named brother Fortunato as HCS, he is willing to serve in this role Questions answered to the best of my ability Palliative care contact information provided Brother feels patient will need some sort of assisted living placement. He does not feel his brother will be able to care for himself after this. He is not able to care for his brother. He is able to assist with decisions. I reviewed with him very guarded condition that hepatic condition could continue to worsen he could in fact become terminal and possibly appropriate for hospice , reviewed that even with ongoing aggressive interventions possible liver conditions could worsen, possible could stabilize. Review very likely patient may experience limited life expectancy. Fortunato phone battery is dying, is going to speak more with the other brothers and call me back tomorrow so we further about conditions and options going forward. Advance Directives Advance Directives Date on File: 05/07/18 Health Care Surrogate Name and Number: Names brother Arley Valadez (brett) Objective Vital Signs: Vital Signs 05/10/18 18:16 05/10/18 20:00 05/11/18 00:00 Temperature 98.6 F 98.0 F Pulse Rate 60 61 Respiratory Rate 18 16 18 Blood Pressure 97/56 L 107/59 L Pulse Oximetry 98 99 05/11/18 08:00 05/11/18 12:00 Temperature 98.5 F 98.1 F Pulse Rate 68 65 Respiratory Rate 16 16 Blood Pressure 90/48 L 99/62 L Pulse Oximetry 98 100 Intake & Output 05/10/18 05/11/18 05/11/18 18:59 06:59 18:59 Intake Total 2428 / 2428 30 / 30 Output Total 600 / 600 1100 / 1100 Balance 1828 / 1828 -1070 / -1070 Weight 58.3 kg Intake: IV 30 / 30 NS Inj 250 ML @ 15 mls/hr IV. 30 / 30 SIG ONCE [facility] Rx#:[id number] Oral 2199 / 2199 Intake (Blood Product) Amt 228 / 228 Pre-Pooled Cryo Thawed 10units 228 / 228 Unit [id number] Output: Urine 600 / 600 1100 / 1100 Other: Date of Last Bowel Movement 05/10/18 Physical Exam: CONSTITUTIONAL/GENERAL: This is a chronically ill appearing male, flat, confused TUBES/LINES/DRAINS: PIV uE. SKIN: No rashes, or lesions. Ecchymoses Lt anterior shoulder. + jaundiced. Skin warm/dry. EYES: Pupils equal and round and reactive. Extraocular motions intact. + scleral icterus. No injection or drainage. Fundi not examined. ENT: Hearing grossly normal. Nose without bleeding or purulent drainage. Throat without visible erythema, exudates, masses, or lesions.MM dry CARDIOVASCULAR: Regular rate and rhythm ,+ murmur . No JVD. Peripheral pulses symmetric. Trace pedal edema. RESPIRATORY/CHEST: Symmetric, unlabored respirations. on room air. Clear to auscultation. Breath sounds equal bilaterally. GASTROINTESTINAL: Abdomen soft, mildly tender, +distended. ,+distended/slight splenomegaly . No guarding. Bowel sounds present. GENITOURINARY: Without palpable bladder distension. Observe dark tea color urine in urinal at bedside MUSCULOSKELETAL: Extremities without clubbing, cyanosis. No joint tenderness or effusion noted. No calf tenderness. chronic vascular discoloration visible to bilateral lower legs, edema Lower legs NEUROLOGICAL: Awake , partially oriented x1-2. Forgetful, easily confused details. Rambling speech, Poor historian. cooperative, follows commands. Moves all 4 extremities, able to reposition self in bed. PSYCHIATRIC: somewhat flat/encephalopathic Diagnostic Tests Laboratory: Laboratory Results - last 72 hr 05/09/18 05/09/18 05/09/18 09:10 16:25 18:04 WBC RBC Hgb Hct MCV MCH MCHC RDW Plt Count MPV Prelim Diff (Auto) Neut % (Auto) Lymph % (Auto) [place] % (Auto) Eos % (Auto) Baso % (Auto) Neut # (Auto) Lymph # (Auto) [place] # (Auto) Eos # (Auto) Baso # (Auto) WBC Differential Diff Scan Differential Comment Platelet Estimate Platelet Morphology PT INR APTT Fibrinogen 35 L* Sodium Potassium Chloride Carbon Dioxide Anion Gap BUN Creatinine Estimated GFR Random Glucose Calcium Total Bilirubin AST ALT Alkaline Phosphatase Ammonia 118 H Total Protein Albumin Blood Bank Comment 05/10/18 05/10/18 05/10/18 04:45 04:45 04:45 WBC 3.3 L RBC 2.40 L Hgb 8.7 L Hct 25.1 L MCV 104.9 H MCH 36.4 H MCHC 34.7 RDW 16.8 Plt Count 51 L MPV 8.5 Prelim Diff (Auto) Slide review pending Neut % (Auto) 61.2 Lymph % (Auto) 24.9 [place] % (Auto) 9.5 H Eos % (Auto) 3.2 Baso % (Auto) 1.2 Neut # (Auto) 2.0 Lymph # (Auto) 0.8 L [place] # (Auto) 0.3 Eos # (Auto) 0.1 Baso # (Auto) 0.0 WBC Differential . Diff Scan Auto diff confirmed Differential Comment . Platelet Estimate Low L Platelet Morphology Normal PT 19.2 H INR 1.9 APTT Fibrinogen 102 L Sodium 144 Potassium 3.5 Chloride 108 H Carbon Dioxide 28.2 Anion Gap 8 BUN 4 L Creatinine 0.86 Estimated GFR Greater than 89 Random Glucose 94 Calcium 7.5 L Total Bilirubin 9.3 H AST 268 H ALT 139 H Alkaline Phosphatase 117 Ammonia Total Protein 6.1 L Albumin 1.6 L Blood Bank Comment 05/10/18 05/11/18 05/11/18 09:19 06:50 11:22 WBC 3.0 L RBC 2.89 L Hgb 10.3 L Hct 30.1 L MCV 104.3 H MCH 35.7 H MCHC 34.2 RDW 17.1 Plt Count 55 L MPV 8.8 Prelim Diff (Auto) Neut % (Auto) Lymph % (Auto) [place] % (Auto) Eos % (Auto) Baso % (Auto) Neut # (Auto) Lymph # (Auto) [place] # (Auto) Eos # (Auto) Baso # (Auto) WBC Differential Diff Scan Differential Comment Platelet Estimate Platelet Morphology PT INR APTT Fibrinogen Sodium Potassium Chloride Carbon Dioxide Anion Gap BUN Creatinine Estimated GFR Random Glucose Calcium Total Bilirubin AST ALT Alkaline Phosphatase Ammonia 106 H Total Protein Albumin Blood Bank Comment 05/11/18 11:22 WBC RBC Hgb Hct MCV MCH MCHC RDW Plt Count MPV Prelim Diff (Auto) Neut % (Auto) Lymph % (Auto) [place] % (Auto) Eos % (Auto) Baso % (Auto) Neut # (Auto) Lymph # (Auto) [place] # (Auto) Eos # (Auto) Baso # (Auto) WBC Differential Diff Scan Differential Comment Platelet Estimate Platelet Morphology PT 18.7 H INR 1.8 APTT 40.1 H Fibrinogen 139 L Sodium Potassium Chloride Carbon Dioxide Anion Gap BUN Creatinine Estimated GFR Random Glucose Calcium Total Bilirubin AST ALT Alkaline Phosphatase Ammonia Total Protein Albumin Blood Bank Comment Result Diagrams: 05/11/18 11:22 05/10/18 04:45 Microbiology: Microbiology 05/07/18 18:30 Urine Culture - Final Clean Catch Urine No growth in 48 hours Assessment and Plan - Disease Oriented Problem List (1) Hepatitis B infection (2) Staghorn renal calculus (3) Acute UTI (4) Liver cirrhosis (5) Hep C w/o coma, chronic Pertinent Non-Medical Issues: Psychosocial: Patient indicates originally from [place]. Did live in [place] for about a year but has since been in [place] for several years. 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 Has 7 siblings though does not remain in close communication with them. Spiritual: Scientologist, no particular affiliation. Requests poison information specialist visit, poison information specialist notified. Legal:Patient today mildly encephalopathic. Ammonia level elevated. Partially oriented. Appears capacitated enough to participate some in decision making but does not have full insight. He is able to designate healthcare surrogate names his brother Arley Valadez as someone he would trust to make decisions in an emergency. Would recommend shared decision making at this point given his fluctuating mental status. Ethical issues impacting care: No ethical issues identified Important Contacts: Brother Arley Valadez (Brett) - new #[phone] XXX OLD # XXX [phone] Prognosis: Patient is a poor historian, full medical history not readily available. Appears he has had some component of chronic liver disease, now with superimposed acute liver dysfunction. Hepatitis B, hepatitis C positive. Initiated on treatment here. Encephalopathic. Bilirubin trending up. Possible current acute disease process may be stable with ongoing aggressive treatment w antiviral, though he remains high risk for ongoing if liver disease does not stabilize or respond to treatment. At that point may be appropriate for hospice. On the other hand if goals were comfort oriented and did not desire further aggressive interventions then would also be hospice appropriate now. Code Status: Full Code Plan: Legal decision maker:Patient today mildly encephalopathic. Ammonia level elevated. Partially oriented. Appears capacitated enough to participate some in decision making but does not have full insight. He is able to designate healthcare surrogate names his brother Arley Valadez as someone he would trust to make decisions in an emergency. Would recommend shared decision making at this point given his fluctuating mental status. Goals: Patient goals stated to continue treatment he "wants to live ". He has limited insight and understanding at this time. Designated his brother Arley Landeros as healthcare surrogate. I have spoken at length with this brother today. He is in agreement to serve as HCS. Update and review of conditions provided today to brother. He wishes to talk to other family members, process information. No decisions made today. He plans to talk further with palliative tomorrow 05/12/18. He is unable to care for patient himself he lives out of state. He feels patient will likely need placement. Patient just moved here from [place] possibly in March at that time he had Medicaid coverage in [place]. Case management may need to assist with placement options, converting Medicaid to [place]. Discussed with primary nurse, medical attending EDUARD Xiong CODE STATUS: Full code by default, and patient indicates that he would want life support if it will help him live SYMPTOMS: --Pain-has had some ongoing pain to right flank/abdomen indicates this was new onset at time of presentation to [facility]. He does endorse good relief with use of prn--indicates he had not previously been on any chronic opiates for chronic pain syndromes. Has been using 2 mg morphine IV about 3 times per day , effective per patient report. Continue to monitor requirements/effectiveness. Cautious up titration given concern for lethargy, mental status w encephalopathy --Encephalopathy-patient with fluctuating mental status, hepatitis, bilirubin trending up. Ammonia level down to 106 though remains elevated. On lactulose, rifaximin added. Partially oriented though forgetful, poor historian , poor insight. Possible this may improve if liver functions improved. Bilirubin continues to trend up appear -- n/v-intermittent, none today. has prn zofran available. Monitor requirements/effectiveness. Palliative care will continue to follow during hospital course as condition evolves, to assist patient/decision-maker with understanding of medical conditions, weighing benefits/burdens of treatment options, for clarification of goals of treatment. Additionally will assist with any symptoms of palliative concern Attestation Attestation: To help prompt me to consider important information that might be impacting today's encounter and assessment, information from prior notes written by myself or my colleagues may have been "brought forward" into today's note. My signature on this note, however, is an attestation that I personally performed the exam, history, and/or decision-making noted today, and, unless otherwise indicated, the interactions with patient, family, and staff as well as the review of records all occurred today. I also attest that the listed assessment and stated plan reflect my best clinical judgment today based on the combination of historical information, prior notes, and today's exam/ interactions. When time spent is documented, it refers only to time spent today by the signer, or if indicated, combined time spent today by collaborating physician/nurse practitioner.
[2018-05-12] MEDS: Furosemide 20 MG Tablet PO SCH (08:04)
[2018-05-12] MEDS: Sodium Chloride 0.9% 2 ML Flush BID IV.FLUSH SCH ×2 (08:05→20:31)
[2018-05-12] MEDS: Tenofovir 300 MG Tablet PO SCH (08:05)
[2018-05-12] MEDS: Nadolol 20 MG Tablet PO SCH ×2 (08:05→08:26)
[2018-05-12] MEDS: rifAXIMin 550 MG Tablet PO SCH ×2 (08:05→20:30)
[2018-05-12] MEDS: Ferrous Sulfate 325 MG Tablet PO SCH ×2 (11:40→17:06)
--- NOTE | 2018-05-12 13:25 | P.PNONC ---
Subjective Interval history: Patient ambulating in room upon arrival. He sat in recliner and asked for a green bag. He then vomited x1. No obvious blood in the vomit. Patient denies nausea, states he just occasionally vomits. No other complaints at this time. Discussed with RN and she will administer his as needed Zofran. Objective Vital Signs/Intake & Output: Vital Signs 05/11/18 16:00 05/11/18 20:00 05/12/18 00:00 Temperature 98.0 F 98.0 F 97.9 F Pulse Rate 60 64 64 Respiratory Rate 14 18 18 Blood Pressure 92/50 L 120/60 108/62 Pulse Oximetry 100 96 97 05/12/18 08:00 Temperature 97.9 F Pulse Rate 68 Respiratory Rate 18 Blood Pressure 104/58 L Pulse Oximetry 95 Intake & Output 05/11/18 05/12/18 05/12/18 18:59 06:59 18:59 Intake Total 1000 / 1000 240 / 240 Output Total 820 / 820 300 / 300 Balance 180 / 180 -60 / -60 Weight 84 kg Intake: Oral 1000 / 1000 240 / 240 Output: Urine 820 / 820 300 / 300 Result Diagrams: 05/11/18 11:22 05/10/18 04:45 Culture Results: Microbiology 05/07/18 18:30 Urine Culture - Final Clean Catch Urine No growth in 48 hours Medications: Active Medications Generic Name Dose Route Start Last Admin Trade Name Freq PRN Reason Stop Dose Admin Artificial Tears 1 drop 05/04/18 13:00 05/09/18 13:48 Refresh Tears 0.5% Opth Drops EACH EYE 1 drop TID PRN Administration DRY EYE(S) Ferrous Sulfate 325 mg 04/30/18 17:00 05/12/18 11:40 Ferosul PO 325 mg BID@1200,1700 NIRAJ Administration Fluconazole 200 mg 05/05/18 15:00 05/12/18 08:04 Diflucan PO 05/19/18 14:59 200 mg DAILY NIRAJ Administration Furosemide 20 mg 05/02/18 09:00 05/12/18 08:04 Lasix PO 20 mg DAILY NIRAJ Administration Lactulose 30 ml 04/29/18 06:28 05/05/18 20:49 Lactulose Liq PO 30 ml DAILY PRN Administration SEVERE CONSITIPATION Lactulose 30 ml 05/05/18 18:00 05/12/18 12:38 Lactulose Liq PO 30 ml QID NIRAJ Administration Nadolol 20 mg 05/08/18 13:30 05/12/18 08:26 Corgard PO Not Given DAILY NIRAJ Ondansetron HCl 4 mg 05/08/18 14:10 05/12/18 11:40 Zofran Inj IV.PUSH 4 mg Q6H PRN Administration NAUSEA OR VOMITING Oxycodone HCl 5 mg 05/09/18 14:09 05/12/18 12:38 Roxicodone PO 5 mg Q4H PRN Administration pain 2-10 Pantoprazole Sodium 40 mg 05/02/18 09:00 05/12/18 08:05 Protonix PO 40 mg DAILY NIRAJ Administration Potassium Chloride 20 meq 05/04/18 09:00 05/12/18 08:05 K-Dur PO 20 meq DAILY NIRAJ Administration Rifaximin 550 mg 05/08/18 13:30 05/12/18 08:05 Xifaxan PO 550 mg Q12HR NIRAJ Administration Sodium Chloride 2 ml 04/29/18 09:00 05/12/18 08:05 Ns Flush IV.FLUSH 2 ml BID NIRAJ Administration Sodium Chloride 2 ml 04/29/18 06:49 05/05/18 16:16 Ns Flush IV.FLUSH 2 ml PRN PRN Administration FLUSH AFTER USING IV ACCESS Spironolactone 100 mg 05/08/18 13:30 05/12/18 08:05 Aldactone PO 100 mg DAILY NIRAJ Administration Tenofovir Disoproxil Fumarate 300 mg 05/06/18 18:00 05/12/18 08:05 Viread PO 300 mg DAILY NIRAJ Administration Zinc Sulfate 220 mg 05/10/18 19:00 05/12/18 08:05 Zinc-220 PO 220 mg DAILY NIRAJ Administration Objective Remarks: GENERAL: Chronically ill-appearing male patient, in no acute distress. SKIN: + Jaundice, warm and dry. Bruising to left shoulder and arm, fading. HEAD: Normocephalic. EYES: + scleral icterus. No injection or drainage. NECK: Supple, trachea midline. CARDIOVASCULAR: Regular rate and rhythm 3/6 systolic murmur aortic listening area. RESPIRATORY: Breath sounds equal bilaterally. Non-labored at rest. GASTROINTESTINAL: Abdomen soft, non-tender, nondistended. +BS. EXTREMITIES: No cyanosis, or edema. Chronic discoloration to bilateral lower extremities. MUSCULOSKELETAL: Adequate muscle tone. NEUROLOGICAL: No obvious focal deficit. Awake, and oriented x3. PSYCHIATRIC: Appropriate mood and affect; insight and judgment normal. Assessment/Plan - Plan Mr. Valadez is a pleasant 58-year-old gentleman with a history of hepatitis C and cirrhosis, recently diagnosed with hepatitis B. patient was transferred here from [facility] for urology care. He was diagnosed with a ureteral calculus with obstruction. Hematology was consulted for pancytopenia. Plan: 1. Pancytopenia, secondary to liver disease and splenomegaly, improving. No evidence of bleeding noted. We will recheck CBC in the a.m. 2. Liver cirrhosis and hepatitis B and C, management per GI. 3. Hypercoagulable state due to splenomegaly and liver disease. Continue to monitor for bleeding. Will recheck coags and fibrinogen in the a.m. 4. From a hematology standpoint, patient could be discharged or transferred back to [place] and follow-up with a signals intelligence analyst near his home, upon discharge.
[2018-05-12 15:33] LABS: Alanine Aminotransferase 117 U/L (12-78); Albumin 1.6 g/dL (3.4-5.0); Alkaline Phosphatase 126 U/L (45-117); Anion Gap 11 meq/L (5-15); Aspartate Aminotransferase 196 U/L (15-37); Blood Urea Nitrogen 6 mg/dL (7-18); Calcium 8.1 mg/dL (8.5-10.1); Carbon Dioxide 25.3 meq/L (21.0-32.0); Chloride 105 meq/L (98-107); Glomerular Filtration Rate 77 mL/min (>89); Glucose,Random 83 mg/dL (74-106); Potassium 4.2 meq/L (3.5-5.1); Sodium 141 meq/L (136-145); Total Protein 6.5 g/dL (6.4-8.2)
--- NOTE | 2018-05-12 18:17 | P.PN ---
Subjective Interval history: Nursing denies any deterioration since last night. Patient himself has no complaints. Later in the daily noted that he had some post prandial emesis but the patient continued to eat regardless. Physical Exam Vital signs: Vital Signs 05/11/18 20:00 05/12/18 00:00 05/12/18 08:00 Temperature 98.0 F 97.9 F 97.9 F Pulse Rate 64 64 68 Respiratory Rate 18 18 18 Blood Pressure 120/60 108/62 104/58 L Pulse Oximetry 96 97 95 05/12/18 12:00 05/12/18 16:00 Temperature 97.9 F 97.7 F Pulse Rate 68 67 Respiratory Rate 18 16 Blood Pressure 112/67 102/57 L Pulse Oximetry 99 94 L Intake & Output 05/11/18 05/12/18 05/12/18 18:59 06:59 18:59 Intake Total 1000 / 1000 240 / 240 Output Total 820 / 820 300 / 300 Balance 180 / 180 -60 / -60 Weight 84 kg Intake: Oral 1000 / 1000 240 / 240 Output: Urine 820 / 820 300 / 300 Narrative: Clear lungs bilaterally, unlabored breathing Heart sounds regular rate rhythm, 5/6 ejection murmur Results - Labs CBC & Chem 7: 05/11/18 11:22 05/12/18 14:48 Laboratory Results - last 24 hr 05/12/18 14:48 Sodium 141 Potassium 4.2 Chloride 105 Carbon Dioxide 25.3 Anion Gap 11 BUN 6 L Creatinine 1.00 Estimated GFR 77 L Random Glucose 83 Calcium 8.1 L Total Bilirubin 14.2 H AST 196 H ALT 117 H Alkaline Phosphatase 126 H Total Protein 6.5 Albumin 1.6 L Assessment and Plan - Plan 58 YOWM with history of Hep B, Hep C, and liver cirrhosis admitted on 04/29 after being transferred from [facility] for staghorn renal calculus complicated by UTI. Urology deemed no surgical intervention needed but will need a PCNL in the future as an outpatient. Now pending placement. 1. Nephrolithiasis with UTI -Per urology will just need PCNL as an outpatient Reviewed U/A from [place] on 04/28 which showed + nitrite, + leukocytes, + bacteria and yeast, and final urine culture resulted on 05/01 showed no growth Urine culture from 04/30 done at [place] growing Shante glabrata PO Diflucan for total of 2 weeks - p.o Roxicodone 2. Pancytopenia HIV negative -s/p multiple cryoprecipitate transfusions -2/2 liver disease and splenomegaly Heme/onc following, stable for dc. Outpt heme f/u. 3. ETOH Liver cirrhosis/HCV/HBV S/p treatment with Harvoni and recently tenofovir was prescribed with diagnosis of hepatitis B the patient was apparently not compliant Previously worked up in [facility] for liver transplant 2016 but unfortunately was not a candidate due to social issues and lack of support Last EGD and colonoscopy in November 2016, portal hypertensive gastropathy noted on EGD otherwise both exams were normal -GI recommends follow-up as outpatient in clinic when discharged. Continue spironolactone, Lasix, lactulose. -Continue Nadolol for PHTN -T bili still high, LFTs stable 4. chronic Hepatic encephalopathy -Continue Lactulose 4 times daily and Xifaxan -waxing/waning 5. Hypokalemia Continue KCl PO 20 mEq daily 6. Dry eyes Exam is nonrevealing Continue refresh eyedrops TID PRN DVT prophylaxis: avoid chemical anticoagulation given coagulopathy and thrombocytopenia
[2018-05-13 07:33] LABS: Activated Partial Thrombo Time 49.5 sec (24.3-30.1); INR 2.4 Ratio
[2018-05-13 07:37] LABS: Prothrombin Time 23.9 sec (9.8-11.6)
[2018-05-13] MEDS: Furosemide 20 MG Tablet PO SCH (08:32)
[2018-05-13] MEDS: rifAXIMin 550 MG Tablet PO SCH ×2 (08:32→22:15)
[2018-05-13] MEDS: Nadolol 20 MG Tablet PO SCH (08:32)
[2018-05-13] MEDS: Tenofovir 300 MG Tablet PO SCH (08:33)
[2018-05-13] MEDS: Sodium Chloride 0.9% 2 ML Flush BID IV.FLUSH SCH ×2 (08:33→22:15)
--- NOTE | 2018-05-13 12:00 | P.PNPAL ---
Reason for Visit Reason for visit: a. To assist with evaluation and management of symptoms including: Encephalopathy, pain b. To assist medical decision maker(s) with: better understanding of current medical conditions; weighing benefits/burdens of medical treatment options; making medical treatment decisions. Subjective Subjective/Interval History: This 58-year-old patient who was transferred here to [facility] from [facility] in [place] on 04/29/18. There he had gone for evaluation of right-sided abdominal pain on 04/28. He also presented with constipation and dark urine. Abdominal CT indicative of portal hypertension changes, cirrhotic liver, and 3.5 cm staghorn calculus right kidney with possible mild duodenitis and cholelithiasis. + pancytopenia, + UTI - started on zosyn IV. He was transferred to [place] due to staghorn calculus w concomitant infection, and requiring a urologist evaluation. also noted to have chronic hep C, cirrhosis, stable. Pt seen today to follow up on comfort, goals with pt and/or decision maker. New CBC today pending. Chem yesterday = total bilirubin uptrending 14, though LFTs downtrending. + episodes n/v yesterday, though pt still noted to be tolerating PO. He is seen in room, seated on side of bed. He is alert, eating a popsicle. Tells me he ate breakfast without nausea, says he felt a little nauseated this morning but resolved. Endorses pain to abdomen/side is about the same. Reports edema to LE. Denies shortness of breath. He tells me he is trying to find a phone burn crew member that works to charge his phone so he can text his roommate to try to get out of hospital. He is aware that he is in the hospital in [place] though cannot have any which hospital. He is unable to name the year but is able to name the frustrated by the fact that he is confused. Advised we have been in communication with his brother he indicates he would like to talk to them too but he does not have charge on his cell phone. Explore why he is in the hospital, he has poor insight- review his liver disease he does not appear to fully understand. He does want to get out of the hospital but does not appear to have insight to making a plan to follow his medical needs or where he would be residing. He does NOT appear able to make insightful decisions at this time. Recommend cont to use brother Arley/Clifton whom he has designated as HCS. parts sales manager has obtained current number Family/Friend Interactions: following exam call to brother Clifton, updated on current condition, not significantly changed. Review that prognosis unchanged, he remains at risk for complication/decline, on the other hand, is early in treatment course and possible liver disease/condition could stabilize. Explroe code status- he indicates he has been in communication w other family , and that their other brother ARLEY who lives in [facility] may better know the pts wishes. He is the brother that pt lived w for 18 mos in [place]. Arley is in [facility]. Appears maybe pt may have initially been trying to give me contact info/name for ARLEY?, but gave me Clifton's number, and again, when I revisited this w pt , pt reported Clifton/Arley were the same, and seems that was such in his phone. Provided Clifton w [employer] phone # so he may call pt. Clifton provided Arley's Number, I attempted to call him, VM left w palliative contact information. Advance Directives Advance Directives Date on File: 05/07/18 Health Care Surrogate Name and Number: Names brother Arley Valadez (brett) Objective Vital Signs: Vital Signs 05/12/18 12:00 05/12/18 16:00 05/13/18 00:00 Temperature 97.9 F 97.7 F 97.6 F Pulse Rate 68 67 73 Respiratory Rate 18 16 16 Blood Pressure 112/67 102/57 L 91/50 L Pulse Oximetry 99 94 L 100 05/13/18 04:00 05/13/18 08:00 Temperature 98 F 98 F Pulse Rate 67 66 Respiratory Rate 18 16 Blood Pressure 81/42 L 106/53 L Pulse Oximetry 98 99 Intake & Output 05/12/18 05/13/18 05/13/18 18:59 06:59 18:59 Output Total 300 / 300 Balance -300 / -300 Weight 83.1 kg Output: Urine 300 / 300 Other: # Voids 3 Date of Last Bowel Movement 05/12/18 05/12/18 # Bowel Movements 2 # Emeses 3 Physical Exam: CONSTITUTIONAL/GENERAL: This is a chronically ill appearing male, flat, confused TUBES/LINES/DRAINS: PIV uE. SKIN: No rashes, or lesions. Ecchymoses Lt anterior shoulder. + jaundiced. Skin warm/dry. EYES: Pupils equal and round and reactive. Extraocular motions intact. + scleral icterus. No injection or drainage. Fundi not examined. ENT: Hearing grossly normal. Nose without bleeding or purulent drainage. Throat without visible erythema, exudates, masses, or lesions.MM dry CARDIOVASCULAR: Regular rate and rhythm ,+ murmur . No JVD. Peripheral pulses symmetric. Trace pedal edema. RESPIRATORY/CHEST: Symmetric, unlabored respirations. on room air. Clear to auscultation. Breath sounds equal bilaterally. GASTROINTESTINAL: Abdomen soft, mildly tender, +distended. ,+distended/slight splenomegaly . No guarding. Bowel sounds present. GENITOURINARY: Without palpable bladder distension. Observe dark tea color urine in urinal at bedside MUSCULOSKELETAL: Extremities without clubbing, cyanosis. No joint tenderness or effusion noted. No calf tenderness. chronic vascular discoloration visible to bilateral lower legs, edema Lower legs NEUROLOGICAL: Awake , partially oriented x1-2. Forgetful, easily confused details. Rambling speech, Poor historian. cooperative, follows commands. Moves all 4 extremities, able to reposition self in bed. PSYCHIATRIC: somewhat flat/encephalopathic Diagnostic Tests Laboratory: Laboratory Results - last 72 hr 05/10/18 05/11/18 05/11/18 09:19 06:50 11:22 WBC 3.0 L RBC 2.89 L Hgb 10.3 L Hct 30.1 L MCV 104.3 H MCH 35.7 H MCHC 34.2 RDW 17.1 Plt Count 55 L MPV 8.8 PT INR APTT Fibrinogen Sodium Potassium Chloride Carbon Dioxide Anion Gap BUN Creatinine Estimated GFR Random Glucose Calcium Total Bilirubin AST ALT Alkaline Phosphatase Ammonia 106 H Total Protein Albumin Blood Bank Comment 05/11/18 05/12/18 05/13/18 11:22 14:48 06:58 WBC RBC Hgb Hct MCV MCH MCHC RDW Plt Count MPV PT 18.7 H 23.9 H INR 1.8 2.4 APTT 40.1 H 49.5 H D Fibrinogen 139 L 71 L* Sodium 141 Potassium 4.2 Chloride 105 Carbon Dioxide 25.3 Anion Gap 11 BUN 6 L Creatinine 1.00 Estimated GFR 77 L Random Glucose 83 Calcium 8.1 L Total Bilirubin 14.2 H AST 196 H ALT 117 H Alkaline Phosphatase 126 H Ammonia Total Protein 6.5 Albumin 1.6 L Blood Bank Comment Result Diagrams: 05/13/18 13:00 05/12/18 14:48 Assessment and Plan - Disease Oriented Problem List (1) Hepatitis B infection (2) Staghorn renal calculus (3) Acute UTI (4) Liver cirrhosis (5) Hep C w/o coma, chronic Pertinent Non-Medical Issues: Psychosocial: Patient indicates originally from [place]. Did live in [place] for about a year but has since been in [place] for several years. 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 Has 7 siblings though does not remain in close communication with them. Spiritual: Druze, no particular affiliation. Requests shank boner visit, shank boner notified. Legal:Patient today mildly encephalopathic. Ammonia level elevated. Partially oriented. Appears capacitated enough to participate some in decision making but does not have full insight. He is able to designate healthcare surrogate names his brother Arley Valadez as someone he would trust to make decisions in an emergency. Would recommend shared decision making at this point given his fluctuating mental status. Ethical issues impacting care: No ethical issues identified Important Contacts: Brother Arley Valadez (Brett) in [place]- [facility] #[phone] XXX OLD # XXX [phone] Brother ARLEY in [facility] [phone] . Prognosis: Patient is a poor historian, full medical history not readily available. Appears he has had some component of chronic liver disease, now with superimposed acute liver dysfunction. Hepatitis B, hepatitis C positive. Initiated on treatment here. Encephalopathic. Bilirubin trending up. Possible current acute disease process may be stable with ongoing aggressive treatment w antiviral, though he remains high risk for ongoing if liver disease does not stabilize or respond to treatment. At that point may be appropriate for hospice. On the other hand if goals were comfort oriented and did not desire further aggressive interventions then would also be hospice appropriate now. Code Status: Full Code Plan: Legal decision maker:Patient today mildly encephalopathic. Ammonia level elevated. Partially oriented. Appears capacitated enough to participate some in decision making but does not have full insight. He is able to designate healthcare surrogate names his brother Arley Valadez as someone he would trust to make decisions in an emergency. Would recommend shared decision making at this point given his fluctuating mental status. Goals: Patient goals stated to continue treatment he "wants to live ". He has limited insight and understanding at this time. Designated his brother Arley Landeros as healthcare surrogate. I have spoken at length with this brother today. He is in agreement to serve as HCS. Update and review of conditions provided today to brother. He wishes to talk to other family members, process information. No decisions made today. He plans to talk further with palliative tomorrow 05/12/18. He is unable to care for patient himself he lives out of state. He feels patient will likely need placement. Patient just moved here from [place] possibly in March at that time he had Medicaid coverage in [place] . Case management may need to assist with placement options, converting Medicaid to [place]. CODE STATUS: Full code by default, and patient indicates that he would want life support if it will help him live SYMPTOMS: --Pain-has had some ongoing pain to right flank/abdomen indicates this was new onset at time of presentation to [facility]. He does endorse good relief with use of prn--indicates he had not previously been on any chronic opiates for chronic pain syndromes. Has been using 2 mg morphine IV about 3 times per day , effective per patient report. Continue to monitor requirements/effectiveness. Cautious up titration given concern for lethargy, mental status w encephalopathy --Encephalopathy-patient with fluctuating mental status, hepatitis, bilirubin trending up. Ammonia level down to 106 though remains elevated. On lactulose, rifaximin added. Partially oriented though forgetful, poor historian , poor insight. Possible this may improve if liver functions improved. Bilirubin continues to trend up though LFTs downtrending -- n/v-intermittent, none today. has prn zofran available. Monitor requirements/effectiveness. Palliative care will continue to follow during hospital course as condition evolves, to assist patient/decision-maker with understanding of medical conditions, weighing benefits/burdens of treatment options, for clarification of goals of treatment. Additionally will assist with any symptoms of palliative concern Attestation Attestation: To help prompt me to consider important information that might be impacting today's encounter and assessment, information from prior notes written by myself or my colleagues may have been "brought forward" into today's note. My signature on this note, however, is an attestation that I personally performed the exam, history, and/or decision-making noted today, and, unless otherwise indicated, the interactions with patient, family, and staff as well as the review of records all occurred today. I also attest that the listed assessment and stated plan reflect my best clinical judgment today based on the combination of historical information, prior notes, and today's exam/ interactions. When time spent is documented, it refers only to time spent today by the signer, or if indicated, combined time spent today by collaborating physician/nurse practitioner.
[2018-05-13] MEDS: Ferrous Sulfate 325 MG Tablet PO SCH ×2 (12:33→17:48)
--- NOTE | 2018-05-13 12:51 | P.PN ---
Subjective Interval history: Nursing denies any deterioration since last night. No emesis noted this morning. Patient himself vocalizes no new complaints. Physical Exam Vital signs: Vital Signs 05/12/18 16:00 05/13/18 00:00 05/13/18 04:00 Temperature 97.7 F 97.6 F 98 F Pulse Rate 67 73 67 Respiratory Rate 16 16 18 Blood Pressure 102/57 L 91/50 L 81/42 L Pulse Oximetry 94 L 100 98 05/13/18 08:00 Temperature 98 F Pulse Rate 66 Respiratory Rate 16 Blood Pressure 106/53 L Pulse Oximetry 99 Intake & Output 05/12/18 05/13/18 05/13/18 18:59 06:59 18:59 Output Total 300 / 300 Balance -300 / -300 Weight 83.1 kg Output: Urine 300 / 300 Other: # Voids 3 Date of Last Bowel Movement 05/12/18 05/12/18 # Bowel Movements 2 # Emeses 3 Narrative: 5/6 ejection murmur, regular rate rhythm Clear lungs bilaterally, unlabored breathing Results - Labs CBC & Chem 7: 05/11/18 11:22 05/12/18 14:48 Laboratory Results - last 24 hr 05/12/18 05/13/18 14:48 06:58 PT 23.9 H INR 2.4 APTT 49.5 H D Fibrinogen 71 L* Sodium 141 Potassium 4.2 Chloride 105 Carbon Dioxide 25.3 Anion Gap 11 BUN 6 L Creatinine 1.00 Estimated GFR 77 L Random Glucose 83 Calcium 8.1 L Total Bilirubin 14.2 H AST 196 H ALT 117 H Alkaline Phosphatase 126 H Total Protein 6.5 Albumin 1.6 L Assessment and Plan - Plan 58 YOWM with history of Hep B, Hep C, and liver cirrhosis admitted on 04/29 after being transferred from [facility] for staghorn renal calculus complicated by UTI. Urology deemed no surgical intervention needed but will need a PCNL in the future as an outpatient. Now pending placement. 1. Nephrolithiasis with UTI -Per urology will just need PCNL as an outpatient Reviewed U/A from [place] on 04/28 which showed + nitrite, + leukocytes, + bacteria and yeast, and final urine culture resulted on 05/01 showed no growth Urine culture from 04/30 done at [place] growing Shante glabrata PO Diflucan for total of 2 weeks - p.o Roxicodone 2. Pancytopenia HIV negative -s/p multiple cryoprecipitate transfusions -2/2 liver disease and splenomegaly Heme/onc following, stable for dc. Outpt heme f/u. 3. ETOH Liver cirrhosis/HCV/HBV S/p treatment with Harvoni and recently tenofovir was prescribed with diagnosis of hepatitis B the patient was apparently not compliant Previously worked up in [facility] for liver transplant 2016 but unfortunately was not a candidate due to social issues and lack of support Last EGD and colonoscopy in November 2016, portal hypertensive gastropathy noted on EGD otherwise both exams were normal -GI recommends follow-up as outpatient in clinic when discharged. Continue spironolactone, Lasix, lactulose. -Continue Nadolol for PHTN -T bili still high, LFTs stable 4. chronic Hepatic encephalopathy -Continue Lactulose 4 times daily and Xifaxan -waxing/waning 5. Hypokalemia Continue KCl PO 20 mEq daily 6. Dry eyes Exam is nonrevealing Continue refresh eyedrops TID PRN DVT prophylaxis: avoid chemical anticoagulation given coagulopathy and thrombocytopenia
[2018-05-13 13:37] LABS: Hematocrit 25.8 % (39.0-51.0); Hemoglobin 9.2 gm/dL (13.0-17.0); Mean Corpuscular HGB Conc 35.6 % (32.0-36.0); Mean Corpuscular Hemoglobin 36.7 pg (27.0-34.0); Mean Platelet Volume 8.1 fL (7.0-11.0); Platelet Count 63 th/mm3 (150-450); Red Cell Distribution Width 17.6 % (11.6-17.2); White Blood Count 4.6 th/mm3 (4.0-11.0)
[2018-05-14] MEDS: Nadolol 20 MG Tablet PO SCH (08:49)
[2018-05-14] MEDS: Furosemide 20 MG Tablet PO SCH (08:49)
[2018-05-14] MEDS: Sodium Chloride 0.9% 2 ML Flush BID IV.FLUSH SCH ×2 (10:21→20:32)
[2018-05-14] MEDS: rifAXIMin 550 MG Tablet PO SCH ×2 (10:21→20:29)
[2018-05-14] MEDS: Tenofovir 300 MG Tablet PO SCH (10:21)
--- NOTE | 2018-05-14 12:42 | P.PN ---
Subjective Interval history: Nursing denies any deterioration since last night. Notes some slight mild asymptomatic hypotensive episodes after the patient receives his pain medications. Physical Exam Vital signs: Vital Signs 05/13/18 16:00 05/13/18 20:00 05/13/18 22:17 Temperature 98.4 F 98.5 F Pulse Rate 67 67 Respiratory Rate 16 18 Blood Pressure 88/49 L 86/49 L 98/48 L Pulse Oximetry 96 100 05/14/18 00:00 05/14/18 01:00 05/14/18 04:00 Temperature 98.7 F 98.8 F Pulse Rate 81 71 Respiratory Rate 17 18 18 Blood Pressure 95/52 L 93/52 L Pulse Oximetry 97 95 05/14/18 08:00 05/14/18 08:10 05/14/18 12:00 Temperature 99.3 F 98.6 F Pulse Rate 67 65 Respiratory Rate 19 16 Blood Pressure 89/54 L 81/40 L 91/54 L Pulse Oximetry 95 98 Intake & Output 05/13/18 05/14/18 05/14/18 18:59 06:59 18:59 Intake Total 2604 / 2604 900 / 900 Output Total 800 / 800 700 / 700 Balance 1804 / 1804 200 / 200 Weight 83.1 kg 84.7 kg Intake: Oral 2604 / 2604 900 / 900 Output: Urine 800 / 800 700 / 700 Other: Date of Last Bowel Movement 05/13/18 # Bowel Movements 1 Narrative: Patient sleeping, easily awoken when prompted Unlabored breathing, clear lungs bilaterally Results - Labs CBC & Chem 7: 05/13/18 13:00 05/12/18 14:48 Laboratory Results - last 24 hr 05/13/18 13:00 WBC 4.6 RBC 2.50 L Hgb 9.2 L Hct 25.8 L MCV 103.0 H MCH 36.7 H MCHC 35.6 RDW 17.6 H Plt Count 63 L MPV 8.1 Assessment and Plan - Plan 58 YOWM with history of Hep B, Hep C, and liver cirrhosis admitted on 04/29 after being transferred from [facility] for staghorn renal calculus complicated by UTI. Urology deemed no surgical intervention needed but will need a PCNL in the future as an outpatient. Now pending placement. 05/14: No significant clinical change. 1. Nephrolithiasis with UTI -Per urology will just need PCNL as an outpatient Reviewed U/A from [place] on 04/28 which showed + nitrite, + leukocytes, + bacteria and yeast, and final urine culture resulted on 05/01 showed no growth Urine culture from 04/30 done at [place] growing Shante glabrata PO Diflucan for total of 2 weeks (05/19 end date) - p.o Roxicodone 2. Pancytopenia HIV negative -s/p multiple cryoprecipitate transfusions -2/2 liver disease and splenomegaly Heme/onc following, stable for dc. Outpt heme f/u. 3. ETOH Liver cirrhosis/HCV/HBV S/p treatment with Harvoni and recently tenofovir was prescribed with diagnosis of hepatitis B the patient was apparently not compliant Previously worked up in [facility] for liver transplant 2016 but unfortunately was not a candidate due to social issues and lack of support Last EGD and colonoscopy in November 2016, portal hypertensive gastropathy noted on EGD otherwise both exams were normal -GI recommends follow-up as outpatient in clinic when discharged. Continue spironolactone, Lasix, lactulose. -Continue Nadolol for PHTN 4. chronic Hepatic encephalopathy -Continue Lactulose 4 times daily and Xifaxan -waxing/waning 5. Hypokalemia Continue KCl PO 20 mEq daily 6. Dry eyes Exam is nonrevealing Continue refresh eyedrops TID PRN DVT prophylaxis: avoid chemical anticoagulation given coagulopathy and thrombocytopenia
--- NOTE | 2018-05-14 13:00 | P.PNPAL ---
Reason for Visit Reason for visit: a. To assist with evaluation and management of symptoms including: Encephalopathy, pain b. To assist medical decision maker(s) with: better understanding of current medical conditions; weighing benefits/burdens of medical treatment options; making medical treatment decisions. Subjective Subjective/Interval History: This 58-year-old patient who was transferred here to [facility] from [facility] in [place] on 04/29/18. There he had gone for evaluation of right-sided abdominal pain on 04/28. He also presented with constipation and dark urine. Abdominal CT indicative of portal hypertension changes, cirrhotic liver, and 3.5 cm staghorn calculus right kidney with possible mild duodenitis and cholelithiasis. + pancytopenia, + UTI - started on zosyn IV. He was transferred to [place] due to staghorn calculus w concomitant infection, and requiring a urologist evaluation. also noted to have chronic hep C, cirrhosis, stable. Pt seen today to follow up on comfort, goals with pt and/or decision maker. CBC yesterday stable. No additional new labs or imaging today. Pt eating well. + voiding, having BM. left for brother Arley yesterday. Pt seen in room, dual visit w Nory Cheema APRN. He is initially in restroom, ambulates out well. Met w him, he is seated in bed. He is partially oriented to year, city, hospital name, city. Some very limited insight RE hospitalization, tells me he is here for kidney problem, and also indicates he has had testicle swelling in the past. Ask him about his liver illness, he does not offer additional info RE. Explore that he has acute hepatitis, liver failure. He just says OK. more focused on trying to charge his brayan phone, and pain in right flank. He asks if I have called his brother Arley, advised that I left . He requests I try to call him again and tell Arley to call the pt back. He denies sob, no gi complaints today. endorses mild, self limiting shortness of breath briefly overnight, and nausea yesterday. Wants to try to get out of the hospital. He is more oriented though still limited insight. He does NOT appear able to make insightful decisions at this time. Recommend cont to use brother Arley/ Clifton whom he has designated as [facility]. Family/Friend Interactions: following exam call to brothgeovanny Tubbs-- Arley indicates he has been in touch with other brothgeovanny Lazo and has some understanding of patient history and conditions. Review with Arley: Palliative care role, purpose, approach Additional medical, psychosocial,l history Patients general health, functional status, and cognitive changes in the months leading up to the current hospitalization Patient/family understanding of the current medical problems Patient/family understanding of prognosis; review potential for liver/ condition to stabilize w tx, vs high risk for complications, worsening Current medical treatment options and benefits/burdens of those options, review potential candidate for hospice if worsens or does not want further aggressive tx CODE STATUS benefits/burdens/limitations Legal decision makers -Arley in agreement to assist Clifton as proxy Questions answered to the best of my ability Palliative care contact information provided Arley appears to have good understanding of conditions. He has some awareness of pt underlying ill state, hx, and that he has not been well for some years. He indicates pt had been on disability. He was NOT aware pt was back in [place]. He is agreement to assist w decision making. He will try to talk further w his brother Clifton and pt RE code status. He would like to remain updated on conditions, prognosis etc. Advance Directives Advance Directives Date on File: 05/07/18 Health Care Surrogate Name and Number: Names brother Arley Valadez (brett) Objective Vital Signs: Vital Signs 05/13/18 16:00 05/13/18 20:00 05/13/18 22:17 Temperature 98.4 F 98.5 F Pulse Rate 67 67 Respiratory Rate 16 18 Blood Pressure 88/49 L 86/49 L 98/48 L Pulse Oximetry 96 100 05/14/18 00:00 05/14/18 01:00 05/14/18 04:00 Temperature 98.7 F 98.8 F Pulse Rate 81 71 Respiratory Rate 17 18 18 Blood Pressure 95/52 L 93/52 L Pulse Oximetry 97 95 05/14/18 08:00 05/14/18 08:10 Temperature 99.3 F Pulse Rate 67 Respiratory Rate 19 Blood Pressure 89/54 L 81/40 L Pulse Oximetry 95 Intake & Output 05/13/18 05/14/18 05/14/18 18:59 06:59 18:59 Intake Total 2604 / 2604 900 / 900 Output Total 800 / 800 700 / 700 Balance 1804 / 1804 200 / 200 Weight 83.1 kg 84.7 kg Intake: Oral 2604 / 2604 900 / 900 Output: Urine 800 / 800 700 / 700 Other: Date of Last Bowel Movement 05/13/18 # Bowel Movements 1 Physical Exam: CONSTITUTIONAL/GENERAL: This is a chronically ill appearing male, flat, confused TUBES/LINES/DRAINS: PIV uE. SKIN: No rashes, or lesions. Ecchymoses Lt anterior shoulder. + jaundiced. Skin warm/dry. EYES: Pupils equal and round and reactive. Extraocular motions intact. + scleral icterus. No injection or drainage. Fundi not examined. ENT: Hearing grossly normal. Nose without bleeding or purulent drainage. Throat without visible erythema, exudates, masses, or lesions.MM dry CARDIOVASCULAR: Regular rate and rhythm ,+ murmur . No JVD. Peripheral pulses symmetric. Trace pedal edema. RESPIRATORY/CHEST: Symmetric, unlabored respirations. on room air. Clear to auscultation. Breath sounds equal bilaterally. GASTROINTESTINAL: Abdomen soft, mildly tender, +distended. ,+distended/slight splenomegaly . No guarding. Bowel sounds present. GENITOURINARY: Without palpable bladder distension. Observe dark tea color urine in urinal at bedside MUSCULOSKELETAL: Extremities without clubbing, cyanosis. No joint tenderness or effusion noted. No calf tenderness. chronic vascular discoloration visible to bilateral lower legs, edema Lower legs NEUROLOGICAL: Awake , partially oriented x1-2. Forgetful, easily confused details. Rambling speech, Poor historian. cooperative, follows commands. Moves all 4 extremities, able to reposition self in bed. PSYCHIATRIC: somewhat flat/encephalopathic Diagnostic Tests Laboratory: Laboratory Results - last 72 hr 05/11/18 05/12/18 05/13/18 11:22 14:48 06:58 WBC 3.0 L RBC 2.89 L Hgb 10.3 L Hct 30.1 L MCV 104.3 H MCH 35.7 H MCHC 34.2 RDW 17.1 Plt Count 55 L MPV 8.8 PT 23.9 H INR 2.4 APTT 49.5 H D Fibrinogen 71 L* Sodium 141 Potassium 4.2 Chloride 105 Carbon Dioxide 25.3 Anion Gap 11 BUN 6 L Creatinine 1.00 Estimated GFR 77 L Random Glucose 83 Calcium 8.1 L Total Bilirubin 14.2 H AST 196 H ALT 117 H Alkaline Phosphatase 126 H Total Protein 6.5 Albumin 1.6 L 05/13/18 13:00 WBC 4.6 RBC 2.50 L Hgb 9.2 L Hct 25.8 L MCV 103.0 H MCH 36.7 H MCHC 35.6 RDW 17.6 H Plt Count 63 L MPV 8.1 PT INR APTT Fibrinogen Sodium Potassium Chloride Carbon Dioxide Anion Gap BUN Creatinine Estimated GFR Random Glucose Calcium Total Bilirubin AST ALT Alkaline Phosphatase Total Protein Albumin Result Diagrams: 05/13/18 13:00 05/12/18 14:48 Assessment and Plan - Disease Oriented Problem List (1) Hepatitis B infection (2) Staghorn renal calculus (3) Acute UTI (4) Liver cirrhosis (5) Hep C w/o coma, chronic Pertinent Non-Medical Issues: Psychosocial: Patient indicates originally from [place]. Did live in [place] for about a year but has since been in [place] for several years. 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 Has 7 siblings though does not remain in close communication with them. Spiritual: [employer], no particular affiliation. Requests doctor podiatric medicine visit, doctor podiatric medicine notified. Legal:Patient today mildly encephalopathic. Ammonia level elevated. Partially oriented. Appears capacitated enough to participate some in decision making but does not have full insight. He is able to designate healthcare surrogate names his brother Arley Valadez as someone he would trust to make decisions in an emergency. Would recommend shared decision making at this point given his fluctuating mental status. Ethical issues impacting care: No ethical issues identified Important Contacts: Brother Arley Valadez (Brett) in [place]- [facility] #[phone] XXX OLD # XXX [phone] Brother ARLEY in [facility] [phone] . Prognosis: Patient is a poor historian, full medical history not readily available. Appears he has had some component of chronic liver disease, now with superimposed acute liver dysfunction. Hepatitis B, hepatitis C positive. Initiated on treatment here. Encephalopathic. Bilirubin trending up. Possible current acute disease process may be stable with ongoing aggressive treatment w antiviral, though he remains high risk for ongoing if liver disease does not stabilize or respond to treatment. At that point may be appropriate for hospice. On the other hand if goals were comfort oriented and did not desire further aggressive interventions then would also be hospice appropriate now. Code Status: Full Code Plan: Legal decision maker:Patient today mildly encephalopathic. Ammonia level elevated. Partially oriented. Appears capacitated enough to participate some in decision making but does not have full insight. He is able to designate healthcare surrogate names his brother Arley Valadez as someone he would trust to make decisions in an emergency. Would recommend shared decision making at this point given his fluctuating mental status. Goals: Patient goals stated to continue treatment he "wants to live ". He has limited insight and understanding at this time. Designated his brother Arley /Clifton as healthcare surrogate. I have spoken at length with this brother today. He is in agreement to serve as HCS. Update and review of conditions provided today to brother. He wishes to talk to other family members, process information. No decisions made today. He plans to talk further with palliative tomorrow 05/12/18. He is unable to care for patient himself he lives out of state. He feels patient will likely need placement. Patient just moved here from [place] possibly in March at that time he had Medicaid coverage in [place] . 05/14/18 Phone meeting w brother/HCS Arley today. Arley appears to have good understanding of conditions. He has some awareness of pt underlying ill state, hx, and that he has not been well for some years. He indicates pt had been on disability. He was NOT aware pt was back in [place]. He is agreement to assist w decision making. He will try to talk further w his brother Clifton and pt RE code status. He would like to remain updated on conditions, prognosis etc. CODE STATUS: Full code by default SYMPTOMS: --Pain-has had some ongoing pain to right flank/abdomen indicates this was new onset at time of presentation to [facility]. He does endorse good relief with use of prn--indicates he had not previously been on any chronic opiates for chronic pain syndromes. Has been using 2 mg morphine IV about 3 times per day , effective per patient report. Continue to monitor requirements/effectiveness. Cautious up titration given concern for lethargy, mental status w encephalopathy --Encephalopathy-patient with fluctuating mental status, hepatitis, bilirubin trending up. Ammonia level down to 106 though remains elevated. On lactulose, rifaximin added. Partially oriented though forgetful, poor historian , poor insight. Possible this may improve if liver functions improved. Bilirubin continues to trend up though LFTs downtrending -- n/v-intermittent, none today. has prn zofran available. Monitor requirements/effectiveness. Palliative care will continue to follow during hospital course as condition evolves, to assist patient/decision-maker with understanding of medical conditions, weighing benefits/burdens of treatment options, for clarification of goals of treatment. Additionally will assist with any symptoms of palliative concern Attestation Attestation: To help prompt me to consider important information that might be impacting today's encounter and assessment, information from prior notes written by myself or my colleagues may have been "brought forward" into today's note. My signature on this note, however, is an attestation that I personally performed the exam, history, and/or decision-making noted today, and, unless otherwise indicated, the interactions with patient, family, and staff as well as the review of records all occurred today. I also attest that the listed assessment and stated plan reflect my best clinical judgment today based on the combination of historical information, prior notes, and today's exam/ interactions. When time spent is documented, it refers only to time spent today by the signer, or if indicated, combined time spent today by collaborating physician/nurse practitioner.
[2018-05-14] MEDS: Ferrous Sulfate 325 MG Tablet PO SCH ×2 (13:07→18:25)
[2018-05-15] MEDS: Furosemide 20 MG Tablet PO SCH (10:39)
[2018-05-15] MEDS: rifAXIMin 550 MG Tablet PO SCH ×2 (10:40→20:21)
[2018-05-15] MEDS: Nadolol 20 MG Tablet PO SCH (10:41)
[2018-05-15] MEDS: Tenofovir 300 MG Tablet PO SCH (10:41)
[2018-05-15] MEDS: Sodium Chloride 0.9% 2 ML Flush BID IV.FLUSH SCH ×2 (10:41→20:22)
[2018-05-15] MEDS: Ferrous Sulfate 325 MG Tablet PO SCH ×2 (12:30→18:02)
--- NOTE | 2018-05-15 14:50 | P.PN ---
Subjective Interval history: Nursing denies any deterioration since last night. Nursing reports borderline low blood pressures in the 90s systolic. Patient overall asymptomatic. Physical Exam Vital signs: Vital Signs 05/14/18 16:00 05/14/18 20:00 05/15/18 00:00 Temperature 98.6 F 98.3 F 98.5 F Pulse Rate 63 61 58 L Respiratory Rate 17 19 19 Blood Pressure 91/54 L 96/55 L 90/57 L Pulse Oximetry 99 98 98 05/15/18 00:17 05/15/18 08:00 05/15/18 12:00 Temperature 97.3 F L 98.3 F Pulse Rate 91 H 64 Respiratory Rate 17 17 18 Blood Pressure 144/68 H 79/43 L Pulse Oximetry 97 97 Intake & Output 05/14/18 05/15/18 05/15/18 18:59 06:59 18:59 Intake Total 780 / 780 900 / 900 Output Total 1050 / 1050 Balance -270 / -270 900 / 900 Weight 84.7 kg Intake: Oral 780 / 780 900 / 900 Output: Urine 1050 / 1050 Other: # Voids 4 Date of Last Bowel Movement 05/14/18 # Bowel Movements 2 Narrative: 5/6 ejection murmur, clear lungs bilaterally, unlabored breathing Awake and alert Jaundiced Results - Labs CBC & Chem 7: 05/13/18 13:00 05/12/18 14:48 Assessment and Plan - Plan 58 YOWM with history of Hep B, Hep C, and liver cirrhosis admitted on 04/29 after being transferred from [facility] for staghorn renal calculus complicated by UTI. Urology deemed no surgical intervention needed but will need a PCNL in the future as an outpatient. Now pending placement. 05/15: Decreased dose of Aldactone from 100 mg to 50 mg daily 1. Nephrolithiasis with UTI -Per urology will just need PCNL as an outpatient Reviewed U/A from [place] on 04/28 which showed + nitrite, + leukocytes, + bacteria and yeast, and final urine culture resulted on 05/01 showed no growth Urine culture from 04/30 done at [place] growing Shante glabrata PO Diflucan for total of 2 weeks (05/19 end date) - p.o Roxicodone 2. Pancytopenia HIV negative -s/p multiple cryoprecipitate transfusions -2/2 liver disease and splenomegaly Heme/onc following, stable for dc. Outpt heme f/u. 3. ETOH Liver cirrhosis/HCV/HBV S/p treatment with Harvoni and recently tenofovir was prescribed with diagnosis of hepatitis B the patient was apparently not compliant Previously worked up in [facility] for liver transplant 2016 but unfortunately was not a candidate due to social issues and lack of support Last EGD and colonoscopy in November 2016, portal hypertensive gastropathy noted on EGD otherwise both exams were normal -GI recommends follow-up as outpatient in clinic when discharged. Continue spironolactone, Lasix, lactulose. -Continue Nadolol for PHTN 4. chronic Hepatic encephalopathy -Continue Lactulose 4 times daily and Xifaxan -waxing/waning 5. Hypokalemia Continue KCl PO 20 mEq daily 6. Dry eyes Exam is nonrevealing Continue refresh eyedrops TID PRN DVT prophylaxis: avoid chemical anticoagulation given coagulopathy and thrombocytopenia
--- NOTE | 2018-05-15 16:58 | P.PNPAL ---
Reason for Visit Reason for visit: a. To assist with evaluation and management of symptoms including: Encephalopathy, pain b. To assist medical decision maker(s) with: better understanding of current medical conditions; weighing benefits/burdens of medical treatment options; making medical treatment decisions. Subjective Subjective/Interval History: This 58-year-old patient who was transferred here to [facility] from [facility] in [place] on 04/29/18. There he had gone for evaluation of right-sided abdominal pain on 04/28. He also presented with constipation and dark urine. Abdominal CT indicative of portal hypertension changes, cirrhotic liver, and 3.5 cm staghorn calculus right kidney with possible mild duodenitis and cholelithiasis. + pancytopenia, + UTI - started on zosyn IV. He was transferred to [place] due to staghorn calculus w concomitant infection, and requiring a urologist evaluation. also noted to have chronic hep C, cirrhosis, stable. Pt seen today to follow up on comfort, goals with pt and/or decision maker. No new labs or imaging today. Pt eating well. +voiding, having BM. Pt seen in room dual visit w Santiago Cheema EXTRACORPOREAL TECHNICIAN. Pt alert, more oriented, appropriate , more insightful than prior interactions with him. Oriented to self, hospital , city, and reason for hospitalization- states is here for liver problems, tx hep B. He is not sure of discharge plan bc he does not know who will live with. He does not have a way to charge his phone to call his former roomate. He may be able to participate more in decision making now, though likely this may fluctuate. He indicates pain is "ok" . Denies dyspnea. no GI complaints, no n/v today. reports eating well. Tells me he has not received a call from his brother. Requests I call him again. He has no other complaints, wants to figure out where he will be d/c to. Call to CELINE Tubbs w my contact information. Advance Directives Advance Directives Date on File: 05/07/18 Health Care Surrogate Name and Number: Names brother Arley Valadez (brett) Objective Vital Signs: Vital Signs 05/14/18 20:00 05/15/18 00:00 05/15/18 00:17 Temperature 98.3 F 98.5 F Pulse Rate 61 58 L Respiratory Rate 19 19 17 Blood Pressure 96/55 L 90/57 L Pulse Oximetry 98 98 05/15/18 08:00 05/15/18 12:00 Temperature 97.3 F L 98.3 F Pulse Rate 91 H 64 Respiratory Rate 17 18 Blood Pressure 144/68 H 79/43 L Pulse Oximetry 97 97 Intake & Output 05/14/18 05/15/18 05/15/18 18:59 06:59 18:59 Intake Total 780 / 780 900 / 900 Output Total 1050 / 1050 Balance -270 / -270 900 / 900 Weight 84.7 kg Intake: Oral 780 / 780 900 / 900 Output: Urine 1050 / 1050 Other: # Voids 4 Date of Last Bowel Movement 05/14/18 05/15/18 # Bowel Movements 2 Physical Exam: CONSTITUTIONAL/GENERAL: This is a chronically ill appearing male, alert, more oriented TUBES/LINES/DRAINS: PIV uE. SKIN: No rashes, or lesions. Ecchymoses Lt anterior shoulder. + jaundiced. Skin warm/dry. EYES: Pupils equal and round and reactive. Extraocular motions intact. + scleral icterus. No injection or drainage. Fundi not examined. ENT: Hearing grossly normal. Nose without bleeding or purulent drainage. Throat without visible erythema, exudates, masses, or lesions.MM dry CARDIOVASCULAR: Regular rate and rhythm ,+ murmur . No JVD. Peripheral pulses symmetric. Trace pedal edema. RESPIRATORY/CHEST: Symmetric, unlabored respirations. on room air. Clear to auscultation. Breath sounds equal bilaterally. GASTROINTESTINAL: Abdomen soft, mildly tender, +distended. ,+distended/slight splenomegaly . No guarding. Bowel sounds present. GENITOURINARY: Without palpable bladder distension. MUSCULOSKELETAL: Extremities without clubbing, cyanosis. No joint tenderness or effusion noted. No calf tenderness. chronic vascular discoloration visible to bilateral lower legs, edema Lower legs NEUROLOGICAL: Awake , oriented x3. Forgetful, though insight improved from prior interactions. cooperative, follows commands. Moves all 4 extremities, able to reposition self in bed. PSYCHIATRIC: somewhat flat Diagnostic Tests Laboratory: Laboratory Results - last 72 hr 05/13/18 05/13/18 06:58 13:00 WBC 4.6 RBC 2.50 L Hgb 9.2 L Hct 25.8 L MCV 103.0 H MCH 36.7 H MCHC 35.6 RDW 17.6 H Plt Count 63 L MPV 8.1 PT 23.9 H INR 2.4 APTT 49.5 H D Fibrinogen 71 L* Result Diagrams: 05/13/18 13:00 05/12/18 14:48 Assessment and Plan - Disease Oriented Problem List (1) Hepatitis B infection (2) Staghorn renal calculus (3) Acute UTI (4) Liver cirrhosis (5) Hep C w/o coma, chronic Pertinent Non-Medical Issues: Psychosocial: Patient indicates originally from [place]. Did live in [place] for about a year but has since been in [place] for several years. 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 Has 7 siblings though does not remain in close communication with them. Spiritual: Tenriism, no particular affiliation. Requests bending machine set up operator visit, bending machine set up operator notified. Legal:Patient today mildly encephalopathic. Ammonia level elevated. Partially oriented. Appears capacitated enough to participate some in decision making but does not have full insight. He is able to designate healthcare surrogate names his brother Arley Valadez as someone he would trust to make decisions in an emergency. Would recommend shared decision making at this point given his fluctuating mental status. Ethical issues impacting care: No ethical issues identified Important Contacts: Brother Arley Valadez (Brett) in [place]- [facility] #[phone] XXX OLD # XXX [phone] Brother ARLEY in [facility] [phone] . Prognosis: Patient is a poor historian, full medical history not readily available. Appears he has had some component of chronic liver disease, now with superimposed acute liver dysfunction. Hepatitis B, hepatitis C positive. Initiated on treatment here. Encephalopathic. Bilirubin trending up. Possible current acute disease process may be stable with ongoing aggressive treatment w antiviral, though he remains high risk for ongoing if liver disease does not stabilize or respond to treatment. At that point may be appropriate for hospice. On the other hand if goals were comfort oriented and did not desire further aggressive interventions then would also be hospice appropriate now. Code Status: Full Code Plan: Legal decision maker:Patient today mildly encephalopathic. Ammonia level elevated. Partially oriented. Appears capacitated enough to participate some in decision making but does not have full insight. He is able to designate healthcare surrogate names his brother Arley Valadez as someone he would trust to make decisions in an emergency. Would recommend shared decision making at this point given his fluctuating mental status. Goals: Patient goals stated to continue treatment he "wants to live ". He has limited insight and understanding at this time. Designated his brother Arley Landeros as healthcare surrogate. I have spoken at length with this brother today. He is in agreement to serve as HCS. Update and review of conditions provided today to brother. He wishes to talk to other family members, process information. No decisions made today. He plans to talk further with palliative tomorrow 05/12/18. He is unable to care for patient himself he lives out of state. He feels patient will likely need placement. Patient just moved here from [place] possibly in March at that time he had Medicaid coverage in [place] . 05/14/18 Phone meeting w brother/HCS Arley Tubbs appears to have good understanding of conditions. He has some awareness of pt underlying ill state, hx, and that he has not been well for some years. He indicates pt had been on disability. He was NOT aware pt was back in [place]. He is agreement to assist w decision making. He will try to talk further w his brother Clifton and pt RE code status. He would like to remain updated on conditions, prognosis etc. VM left for Arley 05/15/18 CODE STATUS: Full code by default SYMPTOMS: --Pain-has had some ongoing pain to right flank/abdomen indicates this was new onset at time of presentation to [facility]. He does endorse good relief with use of prn--indicates he had not previously been on any chronic opiates for chronic pain syndromes. Has been using 2 mg morphine IV about 3 times per day , effective per patient report. Continue to monitor requirements/effectiveness. Cautious up titration given concern for lethargy, mental status w encephalopathy --Encephalopathy-patient with fluctuating mental status, hepatitis, bilirubin trending up. Ammonia level down to 106 though remains elevated. On lactulose, rifaximin added. Partially oriented though forgetful, poor historian , poor insight. Possible this may improve if liver functions improved. Bilirubin continues to trend up though LFTs downtrending -- n/v-intermittent, none today. has prn zofran available. Monitor requirements/effectiveness. Palliative care will continue to follow during hospital course as condition evolves, to assist patient/decision-maker with understanding of medical conditions, weighing benefits/burdens of treatment options, for clarification of goals of treatment. Additionally will assist with any symptoms of palliative concern Attestation Attestation: To help prompt me to consider important information that might be impacting today's encounter and assessment, information from prior notes written by myself or my colleagues may have been "brought forward" into today's note. My signature on this note, however, is an attestation that I personally performed the exam, history, and/or decision-making noted today, and, unless otherwise indicated, the interactions with patient, family, and staff as well as the review of records all occurred today. I also attest that the listed assessment and stated plan reflect my best clinical judgment today based on the combination of historical information, prior notes, and today's exam/ interactions. When time spent is documented, it refers only to time spent today by the signer, or if indicated, combined time spent today by collaborating physician/nurse practitioner.
[2018-05-16] MEDS: Furosemide 20 MG Tablet PO SCH (09:39)
[2018-05-16] MEDS: Spironolactone 50 MG Tablet PO SCH (09:39)
[2018-05-16] MEDS: Nadolol 20 MG Tablet PO SCH (09:39)
[2018-05-16] MEDS: rifAXIMin 550 MG Tablet PO SCH ×2 (09:39→20:12)
[2018-05-16] MEDS: Ferrous Sulfate 325 MG Tablet PO SCH ×2 (11:01→18:07)
[2018-05-16] MEDS: Sodium Chloride 0.9% 2 ML Flush BID IV.FLUSH SCH ×2 (11:01→20:17)
[2018-05-16] MEDS: Tenofovir 300 MG Tablet PO SCH (11:02)
--- NOTE | 2018-05-16 18:58 | P.PN ---
Subjective Interval history: RN denies any setbacks since last night; borderline BPs which seems to be chronic issue. Physical Exam Vital signs: Vital Signs 05/15/18 20:00 05/16/18 00:00 05/16/18 08:00 Temperature 98.5 F 98.3 F 98.4 F Pulse Rate 64 65 71 Respiratory Rate 17 17 17 Blood Pressure 92/53 L 94/52 L 86/45 L Pulse Oximetry 96 96 95 05/16/18 12:00 05/16/18 16:00 Temperature 98.3 F 98.5 F Pulse Rate 59 L 72 Respiratory Rate 17 17 Blood Pressure 82/47 L 92/55 L Pulse Oximetry 97 96 Intake & Output 05/15/18 05/16/18 05/16/18 18:59 06:59 18:59 Intake Total 980 / 980 480 / 480 1500 / 1500 Output Total 1400 / 1400 400 / 400 1000 / 1000 Balance -420 / -420 80 / 80 500 / 500 Weight 84.7 kg Intake: Oral 980 / 980 480 / 480 1500 / 1500 Output: Urine 1400 / 1400 400 / 400 1000 / 1000 Other: Date of Last Bowel Movement 05/15/18 # Bowel Movements 3 1 Narrative: AOX3, intact insight Jaundiced Results - Labs CBC & Chem 7: 05/13/18 13:00 05/12/18 14:48 Assessment and Plan - Plan 58 YOWM with history of Hep B, Hep C, and liver cirrhosis admitted on 04/29 after being transferred from [facility] for staghorn renal calculus complicated by UTI. Urology deemed no surgical intervention needed but will need a PCNL in the future as an outpatient. Now pending placement. 05/15: Decreased dose of Aldactone from 100 mg to 50 mg daily 1. Nephrolithiasis with UTI -Per urology will just need PCNL as an outpatient Reviewed U/A from [facility] on 04/28 which showed + nitrite, + leukocytes, + bacteria and yeast, and final urine culture resulted on 05/01 showed no growth Urine culture from 04/30 done at [place] growing Shante glabrata PO Diflucan for total of 2 weeks (05/19 end date) - p.o Roxicodone 2. Pancytopenia HIV negative -s/p multiple cryoprecipitate transfusions -2/2 liver disease and splenomegaly Heme/onc following, stable for dc. Outpt heme f/u. 3. ETOH Liver cirrhosis/HCV/HBV S/p treatment with Harvoni and recently tenofovir was prescribed with diagnosis of hepatitis B the patient was apparently not compliant Previously worked up in [facility] for liver transplant 2016 but unfortunately was not a candidate due to social issues and lack of support Last EGD and colonoscopy in November 2016, portal hypertensive gastropathy noted on EGD otherwise both exams were normal -GI recommends follow-up as outpatient in clinic when discharged. Continue spironolactone, Lasix, lactulose. -Continue Nadolol for PHTN 4. chronic Hepatic encephalopathy -Continue Lactulose 4 times daily and Xifaxan -waxing/waning 5. Hypokalemia Continue KCl PO 20 mEq daily 6. Dry eyes Exam is nonrevealing Continue refresh eyedrops TID PRN DVT prophylaxis: avoid chemical anticoagulation given coagulopathy and thrombocytopenia
[2018-05-17] MEDS: Spironolactone 50 MG Tablet PO SCH (09:18)
[2018-05-17] MEDS: Tenofovir 300 MG Tablet PO SCH (09:18)
[2018-05-17] MEDS: rifAXIMin 550 MG Tablet PO SCH ×2 (09:18→20:36)
[2018-05-17] MEDS: Furosemide 20 MG Tablet PO SCH (09:18)
[2018-05-17] MEDS: Nadolol 20 MG Tablet PO SCH (09:18)
[2018-05-17 12:36] LABS: Albumin 1.6 g/dL (3.4-5.0)
[2018-05-17 12:38] LABS: Total Protein 6.7 g/dL (6.4-8.2)
--- NOTE | 2018-05-17 12:46 | P.PN ---
Subjective Interval history: Nursing denies any deterioration since last night. Patient himself has no new complaints. Is relatively unchanged jaundice since yesterday. Physical Exam Vital signs: Vital Signs 05/16/18 16:00 05/16/18 20:00 05/17/18 00:00 Temperature 98.5 F 98.5 F 98.3 F Pulse Rate 72 61 59 L Respiratory Rate 17 20 20 Blood Pressure 92/55 L 89/52 L 86/49 L Pulse Oximetry 96 95 98 05/17/18 08:00 05/17/18 12:00 Temperature 97.9 F 97.9 F Pulse Rate 59 L 54 L Respiratory Rate 17 17 Blood Pressure 86/53 L 78/43 L Pulse Oximetry 98 98 Intake & Output 05/16/18 05/17/18 05/17/18 18:59 06:59 18:59 Intake Total 1500 / 1500 480 / 480 Output Total 1000 / 1000 320 / 320 Balance 500 / 500 160 / 160 Weight 81.4 kg Intake: Oral 1500 / 1500 480 / 480 Output: Urine 1000 / 1000 320 / 320 Other: # Bowel Movements 1 Narrative: Clear lungs bilaterally, unlabored breathing Diffuse jaundice evident No abdominal distention or tenderness Results - Labs CBC & Chem 7: 05/13/18 13:00 05/12/18 14:48 Laboratory Results - last 24 hr 05/17/18 11:59 Total Bilirubin 7.9 H Direct Bilirubin 5.3 H Indirect Bilirubin 2.6 H AST 170 H ALT 103 H Alkaline Phosphatase 131 H Total Protein 6.7 Albumin 1.6 L Assessment and Plan - Plan 58 YOWM with history of Hep B, Hep C, and liver cirrhosis admitted on 04/29 after being transferred from [facility] for staghorn renal calculus complicated by UTI. Urology deemed no surgical intervention needed but will need a PCNL in the future as an outpatient. Now pending placement. 05/17: Repeating LFTs today to monitor trend. 1. Nephrolithiasis with UTI -Per urology will just need PCNL as an outpatient Reviewed U/A from [place] on 04/28 which showed + nitrite, + leukocytes, + bacteria and yeast, and final urine culture resulted on 05/01 showed no growth Urine culture from 04/30 done at [place] growing [place] glabrata PO Diflucan for total of 2 weeks (05/19 end date) - p.o Roxicodone 2. Pancytopenia HIV negative -s/p multiple cryoprecipitate transfusions -2/2 liver disease and splenomegaly Heme/onc following, stable for dc. Outpt heme f/u. 3. ETOH Liver cirrhosis/HCV/HBV S/p treatment with Harvoni and recently tenofovir was prescribed with diagnosis of hepatitis B the patient was apparently not compliant Previously worked up in [facility] for liver transplant 2016 but unfortunately was not a candidate due to social issues and lack of support Last EGD and colonoscopy in November 2016, portal hypertensive gastropathy noted on EGD otherwise both exams were normal -GI recommends follow-up as outpatient in clinic when discharged. Continue spironolactone, Lasix, lactulose. -Continue Nadolol for PHTN 4. chronic Hepatic encephalopathy -Continue Lactulose 4 times daily and Xifaxan -waxing/waning 5. Hypokalemia Continue KCl PO 20 mEq daily 6. Dry eyes Exam is nonrevealing Continue refresh eyedrops TID PRN DVT prophylaxis: avoid chemical anticoagulation given coagulopathy and thrombocytopenia
[2018-05-17] MEDS: Sodium Chloride 0.9% 2 ML Flush BID IV.FLUSH SCH ×2 (13:11→20:36)
[2018-05-17] MEDS: Ferrous Sulfate 325 MG Tablet PO SCH ×2 (13:11→18:10)
[2018-05-17] MEDS ORDERED: Dextrose 5%/NaCl 0.45% Inj 500 ML IV.SIG ONE (21:14)
[2018-05-17] MEDS ORDERED: Sodium Chloride 0.9% 2 ML Flush PRN IV.FLUSH (21:23)
[2018-05-18 07:23] LABS: Calcium 7.8 mg/dL (8.5-10.1); Carbon Dioxide 30.6 meq/L (21.0-32.0); Magnesium 1.6 mg/dL (1.5-2.5); Potassium 3.6 meq/L (3.5-5.1)
[2018-05-18 10:05] LABS: Fibrinogen 50 mg/dL (227-377)
[2018-05-18] MEDS: rifAXIMin 550 MG Tablet PO SCH ×2 (10:51→20:55)
[2018-05-18] MEDS: Furosemide 20 MG Tablet PO SCH (10:51)
[2018-05-18] MEDS: Tenofovir 300 MG Tablet PO SCH (10:52)
[2018-05-18] MEDS: Spironolactone 50 MG Tablet PO SCH (10:52)
[2018-05-18] MEDS: Sodium Chloride 0.9% 2 ML Flush BID IV.FLUSH SCH ×4 (10:53→20:57)
[2018-05-18] MEDS: Nadolol 20 MG Tablet PO SCH (10:58)
--- NOTE | 2018-05-18 12:41 | P.PN ---
Subjective Interval history: Nursing denies any deterioration since last night other than the patient requesting a different diabetic cardiac diet. Otherwise has no new complaints. Physical Exam Vital signs: Vital Signs 05/17/18 16:00 05/17/18 20:00 05/18/18 00:00 Temperature 97.9 F 98 F 98.4 F Pulse Rate 51 L 56 L 57 L Respiratory Rate 17 16 16 Blood Pressure 78/49 L 83/50 L 81/43 L Pulse Oximetry 98 99 96 05/18/18 08:00 05/18/18 12:00 Temperature 98.6 F 98.9 F Pulse Rate 60 61 Respiratory Rate 18 18 Blood Pressure 82/43 L 88/56 L Pulse Oximetry 97 98 Intake & Output 05/17/18 05/18/18 05/18/18 18:59 06:59 18:59 Intake Total 920 / 920 Output Total 1350 / 1350 625 / 625 Balance -1350 / -1350 295 / 295 Weight 82.4 kg Intake: IV 500 / 500 D5W-1/2 NS Inj 500 ML @ Wide 500 / 500 Open IV.SIG .Q0M ONE Rx#: [id number] Oral 420 / 420 Output: Urine 1350 / 1350 625 / 625 Other: Date of Last Bowel Movement 05/15/18 # Bowel Movements 1 Narrative: Unchanged jaundice Clear lungs bilaterally Awake and alert, no acute distress Results - Labs CBC & Chem 7: 05/13/18 13:00 05/18/18 05:23 Laboratory Results - last 24 hr 05/18/18 05/18/18 05:23 09:10 PT INR Not Reportable Fibrinogen 50 L* Sodium 139 Potassium 3.6 Chloride 103 Carbon Dioxide 30.6 Anion Gap 5 BUN 4 L Creatinine 0.94 Estimated GFR 83 L Random Glucose 130 H Calcium 7.8 L Magnesium 1.6 Assessment and Plan - Plan 58 YOWM with history of Hep B, Hep C, and liver cirrhosis admitted on 04/29 after being transferred from [facility] for staghorn renal calculus complicated by UTI. Urology deemed no surgical intervention needed but will need a PCNL in the future as an outpatient. Now pending placement. 05/18: LFTs have stabilized 1. Nephrolithiasis with UTI -Per urology will just need PCNL as an outpatient Reviewed U/A from [place] on 04/28 which showed + nitrite, + leukocytes, + bacteria and yeast, and final urine culture resulted on 05/01 showed no growth Urine culture from 04/30 done at [place] growing Shante glabrata PO Diflucan for total of 2 weeks (05/19 end date) - p.o Roxicodone 2. Pancytopenia HIV negative -s/p multiple cryoprecipitate transfusions -2/2 liver disease and splenomegaly Heme/onc following, stable for dc. Outpt heme f/u. 3. ETOH Liver cirrhosis/HCV/HBV S/p treatment with Harvoni and recently tenofovir was prescribed with diagnosis of hepatitis B the patient was apparently not compliant Previously worked up in [facility] for liver transplant 2016 but unfortunately was not a candidate due to social issues and lack of support Last EGD and colonoscopy in November 2016, portal hypertensive gastropathy noted on EGD otherwise both exams were normal -GI recommends follow-up as outpatient in clinic when discharged. Continue spironolactone, Lasix, lactulose, xiafaxan. -Continue Nadolol for PHTN -tenofovir per GI for hepatitis B 4. chronic Hepatic encephalopathy -Continue Lactulose 4 times daily and Xifaxan -waxing/waning 5. Hypokalemia Continue KCl PO 20 mEq daily 6. Dry eyes Exam is nonrevealing Continue refresh eyedrops TID PRN DVT prophylaxis: avoid chemical anticoagulation given coagulopathy and thrombocytopenia
[2018-05-18] MEDS: Ferrous Sulfate 325 MG Tablet PO SCH ×2 (13:59→17:20)
--- NOTE | 2018-05-18 17:24 | P.PNPAL ---
Reason for Visit Reason for visit: a. To assist with evaluation and management of symptoms including: Encephalopathy, pain b. To assist medical decision maker(s) with: better understanding of current medical conditions; weighing benefits/burdens of medical treatment options; making medical treatment decisions. Subjective Subjective/Interval History: This 58-year-old patient who was transferred here to [facility] from [facility] in [place] on 04/29/18. There he had gone for evaluation of right-sided abdominal pain on 04/28. He also presented with constipation and dark urine. Abdominal CT indicative of portal hypertension changes, cirrhotic liver, and 3.5 cm staghorn calculus right kidney with possible mild duodenitis and cholelithiasis. + pancytopenia, + UTI - started on zosyn IV. He was transferred to [place] due to staghorn calculus w concomitant infection, and requiring a urologist evaluation. also noted to have chronic hep C, cirrhosis, stable. Pt seen today to follow up on comfort, goals with pt and/or decision maker. Received a call from patient brother Arley prior to my arrival on patient unit requesting update. Provided him review of EMR and available labs and data. Review improvement in liver functions. Review I have not physically assessed this patient yet. Arley informs that he has spoken to the patient several times on the phone, and that the appears to be improving. Arley is trying to help patient obtain disability checks from roommate so that he can utilize those funds for housing/discharge needs. Review with Arley that part of discharge planning was pending patient capacitated and able to make his discharge plan/ location. Advised that if patient remains confused and unable to care for himself then he might need placement however if patient becomes oriented incapacitated be allowed to choose his disposition and home setting. Patient liver functions improved total bilirubin down to 7.9. AST 170, ALT 103 , alkaline phosphatase 31. Continues on tenofovir , lactulose. Eating well. Patient seen in room no visitors present. He is alert, mostly oriented. Conversation less slow than prior interactions though still some delay appears to have some reasonable insight into hospitalization. He feels like his liver function is getting better see his jaundice is improving he tells me that "in the past for me when my jaundice gets better that is how I know my numbers are better " ; this is a change from last week when he was not even aware he was jaundiced. He endorses that pain to flank is the same, no better no worse. Endorses good appetite, though varies if food not good. denies dyspnea. no nausea or other GI complaints. Feels his thinking is clearer, and feels he is now aware of his conditions. Endorses he has been in communication with his brother who is assisting him to get a hold of his checks figure out where he is going from here. His brother has also been in communication with other. He hopes his numbers can continue to improve and he can get out of the hospital setting. Review with him that while his liver function is improving he will still require ongoing treatment and he is still at risk for further complications related to hepatic disease process. Jaundice does appear to be slightly improving. Advance Directives Advance Directives Date on File: 05/07/18 Health Care Surrogate Name and Number: Names brother Arley Valadez (brett) Objective Vital Signs: Vital Signs 05/17/18 20:00 05/18/18 00:00 05/18/18 08:00 Temperature 98 F 98.4 F 98.6 F Pulse Rate 56 L 57 L 60 Respiratory Rate 16 16 18 Blood Pressure 83/50 L 81/43 L 82/43 L Pulse Oximetry 99 96 97 05/18/18 12:00 05/18/18 16:00 Temperature 98.9 F 97.8 F Pulse Rate 61 59 L Respiratory Rate 18 16 Blood Pressure 88/56 L 84/49 L Pulse Oximetry 98 99 Intake & Output 05/17/18 05/18/18 05/18/18 18:59 06:59 18:59 Intake Total 920 / 920 Output Total 1350 / 1350 625 / 625 Balance -1350 / -1350 295 / 295 Weight 82.4 kg Intake: IV 500 / 500 D5W-1/2 NS Inj 500 ML @ Wide 500 / 500 Open IV.SIG .Q0M ONE Rx#: [id number] Oral 420 / 420 Output: Urine 1350 / 1350 625 / 625 Other: Date of Last Bowel Movement 05/15/18 # Bowel Movements 1 Physical Exam: CONSTITUTIONAL/GENERAL: This is a chronically ill appearing male, alert, more oriented TUBES/LINES/DRAINS: PIV uE. SKIN: No rashes, or lesions. Ecchymoses Lt anterior shoulder. + jaundiced, improving slightly. Skin warm/dry. EYES: Pupils equal and round and reactive. Extraocular motions intact. + scleral icterus, improving. No injection or drainage. Fundi not examined. ENT: Hearing grossly normal. Nose without bleeding or purulent drainage. Throat without visible erythema, exudates, masses, or lesions.MM dry CARDIOVASCULAR: Regular rate and rhythm ,+ murmur . No JVD. Peripheral pulses symmetric. Trace pedal edema. RESPIRATORY/CHEST: Symmetric, unlabored respirations. on room air. Clear to auscultation. Breath sounds equal bilaterally. GASTROINTESTINAL: Abdomen soft, mildly tender, +distended. ,+distended/slight splenomegaly . No guarding. Bowel sounds present. GENITOURINARY: Without palpable bladder distension. MUSCULOSKELETAL: Extremities without clubbing, cyanosis. No joint tenderness or effusion noted. No calf tenderness. chronic vascular discoloration visible to bilateral lower legs, trace edema Lower legs NEUROLOGICAL: Awake , oriented x3. Forgetful, though insight improved from prior interactions. cooperative, follows commands. Moves all 4 extremities, able to reposition self in bed. PSYCHIATRIC: somewhat flat/ quiet Diagnostic Tests Laboratory: Laboratory Results - last 72 hr 05/17/18 05/18/18 05/18/18 11:59 05:23 09:10 PT INR Not Reportable Fibrinogen 50 L* Sodium 139 Potassium 3.6 Chloride 103 Carbon Dioxide 30.6 Anion Gap 5 BUN 4 L Creatinine 0.94 Estimated GFR 83 L Random Glucose 130 H Calcium 7.8 L Magnesium 1.6 Total Bilirubin 7.9 H Direct Bilirubin 5.3 H Indirect Bilirubin 2.6 H AST 170 H ALT 103 H Alkaline Phosphatase 131 H Total Protein 6.7 Albumin 1.6 L Result Diagrams: 05/13/18 13:00 05/18/18 05:23 Assessment and Plan - Disease Oriented Problem List (1) Hepatitis B infection (2) Staghorn renal calculus (3) Acute UTI (4) Liver cirrhosis (5) Hep C w/o coma, chronic Pertinent Non-Medical Issues: Psychosocial: Patient indicates originally from [place]. Did live in [place] for about a year but has since been in [place] for several years. 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 Has 7 siblings though does not remain in close communication with them. Spiritual: Jew, no particular affiliation. Requests sql database administrator visit, sql database administrator notified. Legal:Patient today mildly encephalopathic. Ammonia level elevated. Partially oriented. Appears capacitated enough to participate some in decision making but does not have full insight. He is able to designate healthcare surrogate names his brother Arley Valadez as someone he would trust to make decisions in an emergency. Would recommend shared decision making at this point given his fluctuating mental status. Ethical issues impacting care: No ethical issues identified Important Contacts: Brother Arley Valadez (Brett) in [place]- [facility] #[phone] XXX OLD # XXX [phone] Brother ARLEY in [facility] [phone] . Prognosis: Patient is a poor historian, full medical history not readily available. Appears he has had some component of chronic liver disease, now with superimposed acute liver dysfunction. Hepatitis B, hepatitis C positive. Initiated on treatment here. Encephalopathic. Bilirubin trending up. Possible current acute disease process may be stable with ongoing aggressive treatment w antiviral, though he remains high risk for ongoing if liver disease does not stabilize or respond to treatment. At that point may be appropriate for hospice. On the other hand if goals were comfort oriented and did not desire further aggressive interventions then would also be hospice appropriate now. Code Status: Full Code Plan: Legal decision maker:Patient today mildly encephalopathic. Ammonia level elevated. Partially oriented. Appears capacitated enough to participate some in decision making but does not have full insight. He is able to designate healthcare surrogate names his brother Arley Valadez as someone he would trust to make decisions in an emergency. Would recommend shared decision making at this point given his fluctuating mental status. Goals: Patient goals stated to continue treatment he "wants to live ". He has limited insight and understanding at this time. Designated his brother Arley Landeros as healthcare surrogate. I have spoken at length with this brother today. He is in agreement to serve as HCS. Update and review of conditions provided today to brother. He wishes to talk to other family members, process information. No decisions made today. He plans to talk further with palliative tomorrow 05/12/18. He is unable to care for patient himself he lives out of state. He feels patient will likely need placement. Patient just moved here from [place] possibly in March at that time he had Medicaid coverage in [place] . 05/18/18 pt mental status improving. May be able to participate more in decision making, or make his own decisions in coming days. Brother Arley is assisting him to obtain disability checks which may assist with his housing circumstance at d/c. CODE STATUS: Full code by default SYMPTOMS: --Pain-has had some ongoing pain to right flank/abdomen indicates this was new onset at time of presentation to [facility]. He does endorse good relief with use of prn--indicates he had not previously been on any chronic opiates for chronic pain syndromes. Has been using 2 mg morphine IV about 3 times per day , effective per patient report. Continue to monitor requirements/effectiveness. Cautious up titration given concern for lethargy, mental status w encephalopathy --Encephalopathy-patient with fluctuating mental status, hepatitis, bilirubin trending up. Ammonia level down to 106 though remains elevated. On lactulose, rifaximin added. Partially oriented though forgetful, poor historian , poor insight. Possible this may improve if liver functions improved. Bilirubin initially continued to trend up though LFTs downtrending; bilirubin and LFTs now downtrending. -- n/v-intermittent, none today. has prn zofran available. Monitor requirements/effectiveness. Palliative care will continue to follow during hospital course as condition evolves, to assist patient/decision-maker with understanding of medical conditions, weighing benefits/burdens of treatment options, for clarification of goals of treatment. Additionally will assist with any symptoms of palliative concern Attestation Attestation: To help prompt me to consider important information that might be impacting today's encounter and assessment, information from prior notes written by myself or my colleagues may have been "brought forward" into today's note. My signature on this note, however, is an attestation that I personally performed the exam, history, and/or decision-making noted today, and, unless otherwise indicated, the interactions with patient, family, and staff as well as the review of records all occurred today. I also attest that the listed assessment and stated plan reflect my best clinical judgment today based on the combination of historical information, prior notes, and today's exam/ interactions. When time spent is documented, it refers only to time spent today by the signer, or if indicated, combined time spent today by collaborating physician/nurse practitioner.
[2018-05-19] MEDS: Furosemide 20 MG Tablet PO SCH (10:02)
[2018-05-19] MEDS: Tenofovir 300 MG Tablet PO SCH (10:02)
[2018-05-19] MEDS: Nadolol 20 MG Tablet PO SCH (10:02)
[2018-05-19] MEDS: Spironolactone 50 MG Tablet PO SCH (10:03)
[2018-05-19] MEDS: rifAXIMin 550 MG Tablet PO SCH ×2 (10:03→23:14)
[2018-05-19] MEDS: Sodium Chloride 0.9% 2 ML Flush BID IV.FLUSH SCH ×4 (10:03→23:14)
--- NOTE | 2018-05-19 12:05 | P.PN ---
Subjective Interval history: Follow-up for liver cirrhosis, hepatic encephalopathy-patient seen and examined , awakes to voice, oriented x23. Has no complaints, no chest pain, no shortness of breath. No fever. Having approximately 3 bowel movements a day. No acute changes overnight. Blood pressure trending low which is not uncommon. Physical Exam Vital signs: Vital Signs 05/18/18 12:00 05/18/18 16:00 05/18/18 20:00 Temperature 98.9 F 97.8 F 98.2 F Pulse Rate 61 59 L 55 L Respiratory Rate 18 16 16 Blood Pressure 88/56 L 84/49 L 86/54 L Pulse Oximetry 98 99 97 05/19/18 00:00 05/19/18 04:00 05/19/18 08:00 Temperature 98.3 F 98.1 F 98.2 F Pulse Rate 54 L 55 L 112 H Respiratory Rate 16 16 17 Blood Pressure 83/46 L 80/46 L 84/44 L Pulse Oximetry 96 97 100 Intake & Output 05/18/18 05/19/18 05/19/18 18:59 06:59 18:59 Output Total 1275 / 1275 1600 / 1600 Balance -1275 / -1275 -1600 / -1600 Weight 77.4 kg Output: Urine 1275 / 1275 1600 / 1600 Other: Date of Last Bowel Movement 05/18/18 05/18/18 Narrative: GENERAL: 58-year-old male, chronically ill appearing. SKIN: Warm and dry. Jaundice HEAD: Atraumatic. Normocephalic. EYES: Pupils equal and round. Scleral icterus. No injection or drainage. ENT: No nasal bleeding or discharge. Mucous membranes pink and moist. NECK: Trachea midline. No JVD. CARDIOVASCULAR: S1-S2, positive for murmur, 3/6. RESPIRATORY: No accessory muscle use. Clear to auscultation. Breath sounds equal bilaterally. GASTROINTESTINAL: Abdomen soft, non-tender, nondistended. Hepatic and splenic margins not palpable. MUSCULOSKELETAL: No joint abnormality. No obvious deformities. Bilateral pedal pulses with venous discoloration, pedal pulses 2+ bilateral. Trace ankle edema. NEUROLOGICAL: Awake, oriented x23. Somewhat slow to respond but appropriate. No focal deficits. PSYCHIATRIC: Flat affect. Results - Labs CBC & Chem 7: 05/13/18 13:00 05/18/18 05:23 Assessment and Plan - Assessment (1) Encephalopathy Code(s): G93.40 - Encephalopathy, unspecified Status: Acute (2) Liver cirrhosis Code(s): K74.60 - Unspecified cirrhosis of liver Status: Acute (3) Hep C w/o coma, chronic Code(s): B18.2 - Chronic viral hepatitis C Status: Chronic (4) Hepatitis B infection Code(s): B19.10 - Unspecified viral hepatitis B without hepatic coma Status: Acute - Plan 58 YOWM with history of Hep B, Hep C, and liver cirrhosis admitted on 04/29 after being transferred from [facility] for staghorn renal calculus complicated by UTI. Urology deemed no surgical intervention needed but will need a PCNL in the future as an outpatient. Now pending placement. Nephrolithiasis with UTI -Per urology will just need PCNL as an outpatient Reviewed U/A from [facility] on 04/28 which showed + nitrite, + leukocytes, + bacteria and yeast, and final urine culture resulted on 05/01 showed no growth Urine culture from 04/30 done at [place] growing Shante glabrata PO Diflucan for total of 2 weeks (05/19 end date) - p.o Roxicodone Pancytopenia HIV negative -s/p multiple cryoprecipitate transfusions -2/2 liver disease and splenomegaly Heme/onc following, stable for dc. Outpt heme f/u. ETOH Liver cirrhosis/HCV/HBV S/p treatment with Harvoni and recently tenofovir was prescribed with diagnosis of hepatitis B the patient was apparently not compliant Previously worked up in [facility] for liver transplant 2016 but unfortunately was not a candidate due to social issues and lack of support Last EGD and colonoscopy in November 2016, portal hypertensive gastropathy noted on EGD otherwise both exams were normal -GI recommends follow-up as outpatient in clinic when discharged. Continue spironolactone, Lasix, lactulose, rifaximin -Continue Nadolol for PHTN -tenofovir per GI for hepatitis B -Follow CMP in the morning, LFTs trending down chronic Hepatic encephalopathy -Continue Lactulose 4 times daily and Xifaxan -waxing/waning Hypokalemia Continue KCl PO 20 mEq daily Dry eyes Exam is nonrevealing Continue refresh eyedrops TID PRN DVT prophylaxis: avoid chemical anticoagulation given coagulopathy and thrombocytopenia Palliative care following, input appreciated. Consult physical therapy to increase mobility Code Status: Full code Discussed Condition With: RN, pt. Discharge Planning: Not safe for dc, pt. homeless. (2) Liver cirrhosis Qualifiers: Hepatic cirrhosis type: other cirrhosis Qualified Code(s): K74.69 - Other cirrhosis of liver (4) Hepatitis B infection Qualifiers: Viral hepatitis chronicity: chronic
[2018-05-19] MEDS: Ferrous Sulfate 325 MG Tablet PO SCH ×2 (14:03→17:51)
[2018-05-20 07:42] LABS: Alanine Aminotransferase 84 U/L (12-78); Albumin 1.3 g/dL (3.4-5.0); Anion Gap 4 meq/L (5-15); Aspartate Aminotransferase 150 U/L (15-37); Blood Urea Nitrogen 5 mg/dL (7-18); Calcium 7.7 mg/dL (8.5-10.1); Carbon Dioxide 30.9 meq/L (21.0-32.0); Chloride 102 meq/L (98-107); Glomerular Filtration Rate 72 mL/min (>89); Glucose,Random 109 mg/dL (74-106); Potassium 4.2 meq/L (3.5-5.1); Sodium 137 meq/L (136-145)
[2018-05-20 07:45] LABS: Alkaline Phosphatase 124 U/L (45-117)
[2018-05-20] MEDS: Spironolactone 50 MG Tablet PO SCH (08:23)
[2018-05-20] MEDS: Furosemide 20 MG Tablet PO SCH (08:24)
[2018-05-20] MEDS: Tenofovir 300 MG Tablet PO SCH (08:24)
[2018-05-20] MEDS: Nadolol 20 MG Tablet PO SCH (08:25)
[2018-05-20] MEDS: rifAXIMin 550 MG Tablet PO SCH ×2 (08:25→21:24)
[2018-05-20] MEDS: Sodium Chloride 0.9% 2 ML Flush BID IV.FLUSH SCH ×4 (08:26→21:27)
[2018-05-20] MEDS: Ferrous Sulfate 325 MG Tablet PO SCH ×2 (12:17→17:27)
--- NOTE | 2018-05-20 12:19 | P.PN ---
Subjective Interval history: Follow-up for liver cirrhosis, hepatic encephalopathy-patient seen and examined , more awake, oriented x3. Complains of generalized aches. Eating well, no nausea, no vomiting. No fever. No acute changes overnight. Physical Exam Vital signs: Vital Signs 05/19/18 16:00 05/19/18 20:00 05/20/18 00:00 Temperature 97.8 F 98.7 F 98.0 F Pulse Rate 50 L 55 L 56 L Respiratory Rate 16 19 19 Blood Pressure 82/43 L 80/45 L 89/51 L Pulse Oximetry 97 99 98 05/20/18 08:00 Temperature 98.2 F Pulse Rate 55 L Respiratory Rate 17 Blood Pressure 89/54 L Pulse Oximetry 93 L Intake & Output 05/19/18 05/20/18 05/20/18 18:59 06:59 18:59 Intake Total 840 / 840 460 / 460 Output Total 1250 / 1250 275 / 275 Balance -410 / -410 185 / 185 Weight 74.7 kg Intake: Oral 840 / 840 460 / 460 Output: Urine 1250 / 1250 275 / 275 Other: Date of Last Bowel Movement 05/19/18 05/19/18 05/19/18 # Bowel Movements 0 Narrative: GENERAL: 58-year-old male, chronically ill appearing. SKIN: Warm and dry. Jaundice HEAD: Atraumatic. Normocephalic. EYES: Pupils equal and round. Scleral icterus. No injection or drainage. ENT: No nasal bleeding or discharge. Mucous membranes pink and moist. NECK: Trachea midline. No JVD. CARDIOVASCULAR: S1-S2, positive for murmur, 3/6. RESPIRATORY: No accessory muscle use. Clear to auscultation. Breath sounds equal bilaterally. GASTROINTESTINAL: Abdomen soft, non-tender, nondistended. Hepatic and splenic margins not palpable. MUSCULOSKELETAL: No joint abnormality. No obvious deformities. Bilateral pedal pulses with venous discoloration, pedal pulses 2+ bilateral. Trace ankle edema. NEUROLOGICAL: Awake, oriented x 3. Somewhat slow to respond but appropriate. No focal deficits. PSYCHIATRIC: Cooperative, more engaged today. Results - Labs CBC & Chem 7: 05/13/18 13:00 05/20/18 06:32 Laboratory Results - last 24 hr 05/20/18 06:32 Sodium 137 Potassium 4.2 Chloride 102 Carbon Dioxide 30.9 Anion Gap 4 L BUN 5 L Creatinine 1.06 Estimated GFR 72 L Random Glucose 109 H Calcium 7.7 L Total Bilirubin 7.7 H AST 150 H ALT 84 H Alkaline Phosphatase 124 H Total Protein 6.0 L D Albumin 1.3 L Assessment and Plan - Assessment (1) Encephalopathy Code(s): G93.40 - Encephalopathy, unspecified Status: Acute (2) Liver cirrhosis Code(s): K74.60 - Unspecified cirrhosis of liver Status: Acute (3) Hep C w/o coma, chronic Code(s): B18.2 - Chronic viral hepatitis C Status: Chronic (4) Hepatitis B infection Code(s): B19.10 - Unspecified viral hepatitis B without hepatic coma Status: Acute - Plan 58 YOWM with history of Hep B, Hep C, and liver cirrhosis admitted on 04/29 after being transferred from [facility] for staghorn renal calculus complicated by UTI. Urology deemed no surgical intervention needed but will need a PCNL in the future as an outpatient. Now pending placement. Nephrolithiasis with UTI -Per urology will just need PCNL as an outpatient Reviewed U/A from [facility] on 04/28 which showed + nitrite, + leukocytes, + bacteria and yeast, and final urine culture resulted on 05/01 showed no growth Urine culture from 04/30 done at [facility] growing Shante glabrata PO Diflucan for total of 2 weeks (05/19 end date) - p.o Roxicodone Pancytopenia HIV negative -s/p multiple cryoprecipitate transfusions -2/2 liver disease and splenomegaly Heme/onc following, stable for dc. Outpt heme f/u. ETOH Liver cirrhosis/HCV/HBV S/p treatment with Harvoni and recently tenofovir was prescribed with diagnosis of hepatitis B the patient was apparently not compliant Previously worked up in [facility] for liver transplant 2016 but unfortunately was not a candidate due to social issues and lack of support Last EGD and colonoscopy in November 2016, portal hypertensive gastropathy noted on EGD otherwise both exams were normal -GI recommends follow-up as outpatient in clinic when discharged. Continue spironolactone, Lasix, lactulose, rifaximin -Continue Nadolol for PHTN -tenofovir per GI for hepatitis B -CMP reviewed, LFTs continue to trend down. chronic Hepatic encephalopathy -Continue Lactulose 4 times daily and Xifaxan -waxing/waning Hypokalemia Continue KCl PO 20 mEq daily Dry eyes Exam is nonrevealing Continue refresh eyedrops TID PRN DVT prophylaxis: avoid chemical anticoagulation given coagulopathy and thrombocytopenia Palliative care following, input appreciated. Consult physical therapy to increase mobility ammonia in a.m. Code Status: Full code Discussed Condition With: RN, patient Discharge Planning: Not safe for dc, pt. homeless. (2) Liver cirrhosis Qualifiers: Hepatic cirrhosis type: other cirrhosis Qualified Code(s): K74.69 - Other cirrhosis of liver (4) Hepatitis B infection Qualifiers: Viral hepatitis chronicity: chronic
[2018-05-21] MEDS: Sodium Chloride 0.9% 2 ML Flush BID IV.FLUSH SCH ×4 (08:16→21:25)
[2018-05-21] MEDS: rifAXIMin 550 MG Tablet PO SCH ×2 (08:16→21:17)
[2018-05-21] MEDS: Tenofovir 300 MG Tablet PO SCH (08:16)
[2018-05-21] MEDS: Spironolactone 50 MG Tablet PO SCH (08:17)
[2018-05-21] MEDS: Furosemide 20 MG Tablet PO SCH (08:17)
[2018-05-21] MEDS: Nadolol 20 MG Tablet PO SCH (09:31)
--- NOTE | 2018-05-21 11:37 | P.PN ---
Subjective Interval history: Follow-up for liver cirrhosis, hepatic encephalopathy-patient seen and examined , does not feel too well today. Feels confused, although able to answer questions correctly. No pain. Indicates he wants to go outside in a wheelchair and asking if someone can take him. Feeling a little down today. Eating well. No acute changes overnight. Physical Exam Vital signs: Vital Signs 05/20/18 12:00 05/20/18 16:00 05/20/18 20:00 Temperature 97.8 F 98.3 F 97.7 F Pulse Rate 54 L 51 L 56 L Respiratory Rate 18 19 16 Blood Pressure 85/53 L 86/48 L 88/53 L Pulse Oximetry 99 100 97 05/20/18 22:48 05/20/18 23:57 05/21/18 08:00 Temperature 98.5 F 97.6 F Pulse Rate 53 L 56 L Respiratory Rate 18 17 19 Blood Pressure 88/53 L 93/44 L Pulse Oximetry 98 97 Intake & Output 05/20/18 05/21/18 05/21/18 18:59 06:59 18:59 Intake Total 460 / 460 900 / 900 Output Total 275 / 275 675 / 675 Balance 185 / 185 225 / 225 Weight 74.7 kg 74 kg Intake: Oral 460 / 460 900 / 900 Output: Urine 275 / 275 675 / 675 Other: Date of Last Bowel Movement 05/19/18 05/20/18 05/20/18 Narrative: GENERAL: 58-year-old male, chronically ill appearing. SKIN: Warm and dry. Jaundice HEAD: Atraumatic. Normocephalic. EYES: Pupils equal and round. Scleral icterus. No injection or drainage. ENT: No nasal bleeding or discharge. Mucous membranes pink and moist. NECK: Trachea midline. No JVD. CARDIOVASCULAR: S1-S2, positive for murmur, 3/6. RESPIRATORY: No accessory muscle use. Clear to auscultation. Breath sounds equal bilaterally. GASTROINTESTINAL: Abdomen soft, non-tender, nondistended. Hepatic and splenic margins not palpable. MUSCULOSKELETAL: No joint abnormality. No obvious deformities. Bilateral pedal pulses with venous discoloration, pedal pulses 2+ bilateral. Trace ankle edema. NEUROLOGICAL: Awake, oriented x 3. Somewhat slow to respond but appropriate. No focal deficits. PSYCHIATRIC: Sad affect. Results - Labs CBC & Chem 7: 05/13/18 13:00 05/20/18 06:32 Laboratory Results - last 24 hr 05/20/18 15:35 Ammonia 71 H Assessment and Plan - Assessment (1) Encephalopathy Code(s): G93.40 - Encephalopathy, unspecified Status: Acute (2) Liver cirrhosis Code(s): K74.60 - Unspecified cirrhosis of liver Status: Acute (3) Hep C w/o coma, chronic Code(s): B18.2 - Chronic viral hepatitis C Status: Chronic (4) Hepatitis B infection Code(s): B19.10 - Unspecified viral hepatitis B without hepatic coma Status: Acute - Plan 58 YOWM with history of Hep B, Hep C, and liver cirrhosis admitted on 04/29 after being transferred from [facility] for staghorn renal calculus complicated by UTI. Urology deemed no surgical intervention needed but will need a PCNL in the future as an outpatient. Now pending placement. Nephrolithiasis with UTI -Per urology will just need PCNL as an outpatient Reviewed U/A from [place] on 04/28 which showed + nitrite, + leukocytes, + bacteria and yeast, and final urine culture resulted on 05/01 showed no growth Urine culture from 04/30 done at [place] growing Shante glabrata PO Diflucan for total of 2 weeks (05/19 end date) - p.o Roxicodone Pancytopenia HIV negative -s/p multiple cryoprecipitate transfusions -2/2 liver disease and splenomegaly Heme/onc following, stable for dc. Outpt heme f/u. ETOH Liver cirrhosis/HCV/HBV S/p treatment with Harvoni and recently tenofovir was prescribed with diagnosis of hepatitis B the patient was apparently not compliant Previously worked up in [facility] for liver transplant 2016 but unfortunately was not a candidate due to social issues and lack of support Last EGD and colonoscopy in November 2016, portal hypertensive gastropathy noted on EGD otherwise both exams were normal -GI recommends follow-up as outpatient in clinic when discharged. Continue spironolactone, Lasix, lactulose, rifaximin -Continue Nadolol for PHTN -tenofovir per GI for hepatitis B -CMP reviewed, LFTs continue to trend down. chronic Hepatic encephalopathy -Continue Lactulose 4 times daily and Xifaxan -waxing/waning -Ammonia 71 yesterday Hypokalemia Continue KCl PO 20 mEq daily Dry eyes Exam is nonrevealing Continue refresh eyedrops TID PRN DVT prophylaxis: avoid chemical anticoagulation given coagulopathy and thrombocytopenia Palliative care following, input appreciated. Consult physical therapy to increase mobility CMP and ammonia in the morning Okay for patient to go in wheelchair downstairs supervised. Code Status: Full code Discussed Condition With: RN, patient Discharge Planning: Not safe for dc, pt. homeless. (2) Liver cirrhosis Qualifiers: Hepatic cirrhosis type: other cirrhosis Qualified Code(s): K74.69 - Other cirrhosis of liver (4) Hepatitis B infection Qualifiers: Viral hepatitis chronicity: chronic
[2018-05-21] MEDS: Ferrous Sulfate 325 MG Tablet PO SCH ×2 (11:44→16:59)
[2018-05-22 07:40] LABS: Hematocrit 28.2 % (39.0-51.0); Hemoglobin 9.8 gm/dL (13.0-17.0); Mean Corpuscular HGB Conc 34.9 % (32.0-36.0); Mean Corpuscular Hemoglobin 36.3 pg (27.0-34.0); Mean Corpuscular Volume 103.9 fL (80.0-100.0); Mean Platelet Volume 9.9 fL (7.0-11.0); Platelet Count 61 th/mm3 (150-450); Red Blood Count 2.71 mil/mm3 (4.50-5.90); Red Cell Distribution Width 17.3 % (11.6-17.2); White Blood Count 3.7 th/mm3 (4.0-11.0)
[2018-05-22 08:11] LABS: Alanine Aminotransferase 89 U/L (12-78); Albumin 1.6 g/dL (3.4-5.0); Anion Gap 5 meq/L (5-15); Blood Urea Nitrogen 8 mg/dL (7-18); Calcium 8.5 mg/dL (8.5-10.1); Carbon Dioxide 30.8 meq/L (21.0-32.0); Chloride 97 meq/L (98-107); Glomerular Filtration Rate 71 mL/min (>89); Glucose,Random 85 mg/dL (74-106); Potassium 4.4 meq/L (3.5-5.1); Sodium 133 meq/L (136-145)
[2018-05-22 08:20] LABS: Alkaline Phosphatase 134 U/L (45-117); Aspartate Aminotransferase 161 U/L (15-37)
[2018-05-22] MEDS: Spironolactone 50 MG Tablet PO SCH (10:19)
[2018-05-22] MEDS: Furosemide 20 MG Tablet PO SCH (10:19)
[2018-05-22] MEDS: rifAXIMin 550 MG Tablet PO SCH ×2 (10:19→20:48)
[2018-05-22] MEDS: Tenofovir 300 MG Tablet PO SCH (10:19)
[2018-05-22] MEDS: Nadolol 20 MG Tablet PO SCH (10:19)
[2018-05-22] MEDS: Sodium Chloride 0.9% 2 ML Flush BID IV.FLUSH SCH ×4 (10:20→20:51)
[2018-05-22] MEDS: Ferrous Sulfate 325 MG Tablet PO SCH ×2 (12:53→17:11)
--- NOTE | 2018-05-22 12:54 | P.PN ---
Subjective Interval history: Follow-up for liver cirrhosis, hepatic encephalopathy-patient seen and examined. Does not feel well, refused physical therapy this morning. No chest pain, no shortness of breath. Eating well. Oriented x3. Physical Exam Vital signs: Vital Signs 05/21/18 13:07 05/21/18 16:00 05/21/18 20:00 Temperature 98.2 F 98.3 F Pulse Rate 54 L 56 L Respiratory Rate 19 18 Blood Pressure 90/52 L 96/65 L 103/50 L Pulse Oximetry 98 95 05/21/18 23:38 05/22/18 00:00 05/22/18 08:00 Temperature 98.1 F 97.7 F Pulse Rate 55 L 63 Respiratory Rate 18 18 16 Blood Pressure 91/47 L 91/49 L Pulse Oximetry 98 98 05/22/18 12:00 Temperature 97.9 F Pulse Rate 55 L Respiratory Rate 16 Blood Pressure 90/42 L Pulse Oximetry 98 Intake & Output 05/21/18 05/22/18 05/22/18 18:59 06:59 18:59 Intake Total 950 / 950 120 / 120 Output Total 900 / 900 Balance 50 / 50 120 / 120 Weight 68.3 kg Intake: Oral 950 / 950 120 / 120 Output: Urine 900 / 900 Other: # Voids 1 Date of Last Bowel Movement 05/20/18 05/21/18 # Bowel Movements 1 Narrative: GENERAL: 58-year-old male, chronically ill appearing. SKIN: Warm and dry. Jaundice HEAD: Atraumatic. Normocephalic. EYES: Pupils equal and round. Scleral icterus. No injection or drainage. ENT: No nasal bleeding or discharge. Mucous membranes pink and moist. NECK: Trachea midline. No JVD. CARDIOVASCULAR: S1-S2, positive for murmur, 3/6. RESPIRATORY: No accessory muscle use. Clear to auscultation. Breath sounds equal bilaterally. GASTROINTESTINAL: Abdomen soft, non-tender, nondistended. Hepatic and splenic margins not palpable. MUSCULOSKELETAL: No joint abnormality. No obvious deformities. Bilateral pedal pulses with venous discoloration, pedal pulses 2+ bilateral. Trace ankle edema. NEUROLOGICAL: Awake, oriented x 3. Somewhat slow to respond but appropriate. No focal deficits. PSYCHIATRIC: Sad affect. Results - Labs CBC & Chem 7: 05/22/18 06:27 05/22/18 06:27 Laboratory Results - last 24 hr 10/18/18 10/19/18 10/19/18 14:48 06:27 06:27 WBC 3.7 L RBC 2.71 L Hgb 9.8 L Hct 28.2 L MCV 103.9 H MCH 36.3 H MCHC 34.9 RDW 17.3 H Plt Count 61 L MPV 9.9 Sodium 133 L Potassium 4.4 Chloride 97 L Carbon Dioxide 30.8 Anion Gap 5 BUN 8 Creatinine 1.07 Estimated GFR 71 L Random Glucose 85 Calcium 8.5 D Total Bilirubin 12.2 H AST 161 H ALT 89 H Alkaline Phosphatase 134 H Ammonia 96 H Total Protein 7.0 D Albumin 1.6 L Assessment and Plan - Assessment (1) Encephalopathy Code(s): G93.40 - Encephalopathy, unspecified Status: Acute (2) Liver cirrhosis Code(s): K74.60 - Unspecified cirrhosis of liver Status: Acute (3) Hep C w/o coma, chronic Code(s): B18.2 - Chronic viral hepatitis C Status: Chronic (4) Hepatitis B infection Code(s): B19.10 - Unspecified viral hepatitis B without hepatic coma Status: Acute - Plan 58 YOWM with history of Hep B, Hep C, and liver cirrhosis admitted on 04/29 after being transferred from [facility] for [facility] renal calculus complicated by UTI. Urology deemed no surgical intervention needed but will need a PCNL in the future as an outpatient. Now pending placement. Nephrolithiasis with UTI -Per urology will just need PCNL as an outpatient Reviewed U/A from [place] on 04/28 which showed + nitrite, + leukocytes, + bacteria and yeast, and final urine culture resulted on 05/01 showed no growth Urine culture from 04/30 done at [place] growing Shante glabrata PO Diflucan for total of 2 weeks --completed - p.o Roxicodone Pancytopenia HIV negative -s/p multiple cryoprecipitate transfusions -2/2 liver disease and splenomegaly Heme/onc following, stable for dc. Outpt heme f/u. ETOH Liver cirrhosis/HCV/HBV S/p treatment with Harvoni and recently tenofovir was prescribed with diagnosis of hepatitis B the patient was apparently not compliant Previously worked up in [facility] for liver transplant 2016 but unfortunately was not a candidate due to social issues and lack of support Last EGD and colonoscopy in November 2016, portal hypertensive gastropathy noted on EGD otherwise both exams were normal -GI recommends follow-up as outpatient in clinic when discharged. Continue spironolactone, Lasix, lactulose, rifaximin -Continue Nadolol for PHTN -tenofovir per GI for hepatitis B -CMP reviewed, LFTs continue to trend down. chronic Hepatic encephalopathy -Continue Lactulose 4 times daily and Xifaxan -Slow to respond but otherwise appropriate. -Ammonia 96. Continue with present treatment Hypokalemia Continue KCl PO 20 mEq daily Dry eyes Exam is nonrevealing Continue refresh eyedrops TID PRN DVT prophylaxis: avoid chemical anticoagulation given coagulopathy and thrombocytopenia Palliative care following, input appreciated. Consult physical therapy to increase mobility Patient is to get out of bed today for physical therapy evaluation Patient is not sure if he has scripts for tenofovir, indicates he was not taking before because it was too expensive. Code Status: Full code Discussed Condition With: RN, patient, case management Discharge Planning: Not safe for dc, pt. homeless. (2) Liver cirrhosis Qualifiers: Hepatic cirrhosis type: other cirrhosis Qualified Code(s): K74.69 - Other cirrhosis of liver (4) Hepatitis B infection Qualifiers: Viral hepatitis chronicity: chronic
[2018-05-23] MEDS: Tenofovir 300 MG Tablet PO SCH (08:56)
[2018-05-23] MEDS: rifAXIMin 550 MG Tablet PO SCH ×2 (08:56→20:14)
[2018-05-23] MEDS: Furosemide 20 MG Tablet PO SCH (08:57)
[2018-05-23] MEDS: Sodium Chloride 0.9% 2 ML Flush BID IV.FLUSH SCH ×4 (08:58→20:15)
[2018-05-23] MEDS: Nadolol 20 MG Tablet PO SCH (09:00)
[2018-05-23] MEDS: Spironolactone 50 MG Tablet PO SCH (09:00)
--- NOTE | 2018-05-23 12:03 | P.PN ---
Subjective Interval history: Follow-up for liver cirrhosis, hepatic encephalopathy-patient seen and examined. Awake, alert oriented x3. Asking if we were able to get in touch with his brother. Eating well, no n/v. No CP, no sob. No fever. Ambulated with PT yesterday and did well. RN reported that patient had hematuria, this was not visualized by undersigned. H&H stable today. Physical Exam Vital signs: Vital Signs 05/22/18 12:00 05/22/18 16:00 05/22/18 20:00 Temperature 97.9 F 97.7 F 98.5 F Pulse Rate 55 L 96 H 61 Respiratory Rate 16 16 16 Blood Pressure 90/42 L 95/54 L 95/51 L Pulse Oximetry 98 98 98 05/23/18 00:00 05/23/18 04:00 05/23/18 08:00 Temperature 98.2 F 98.0 F 98.4 F Pulse Rate 58 L 57 L 56 L Respiratory Rate 17 18 16 Blood Pressure 89/46 L 97/49 L 91/42 L Pulse Oximetry 94 L 96 98 Intake & Output 05/22/18 05/23/18 05/23/18 18:59 06:59 18:59 Intake Total 1400 / 1400 480 / 480 Balance 1400 / 1400 480 / 480 Weight 64.8 kg Intake: Oral 1400 / 1400 480 / 480 Other: # Voids 3 2 Date of Last Bowel Movement 05/22/18 # Bowel Movements 1 Narrative: GENERAL: 58-year-old male, chronically ill appearing. SKIN: Warm and dry. Jaundice HEAD: Atraumatic. Normocephalic. EYES: Pupils equal and round. Scleral icterus. No injection or drainage. ENT: No nasal bleeding or discharge. Mucous membranes pink and moist. NECK: Trachea midline. No JVD. CARDIOVASCULAR: S1-S2, positive for murmur, 3/6. RESPIRATORY: No accessory muscle use. Clear to auscultation. Breath sounds equal bilaterally. GASTROINTESTINAL: Abdomen soft, non-tender, nondistended. Hepatic and splenic margins not palpable. MUSCULOSKELETAL: No joint abnormality. No obvious deformities. Bilateral pedal pulses with venous discoloration, pedal pulses 2+ bilateral. Trace ankle edema. NEUROLOGICAL: Awake, oriented x 3. Somewhat slow to respond but appropriate. No focal deficits. PSYCHIATRIC: Sad affect. Results - Labs CBC & Chem 7: 05/22/18 06:27 05/22/18 06:27 Assessment and Plan - Assessment (1) Encephalopathy Code(s): G93.40 - Encephalopathy, unspecified Status: Acute (2) Liver cirrhosis Code(s): K74.60 - Unspecified cirrhosis of liver Status: Acute (3) Hep C w/o coma, chronic Code(s): B18.2 - Chronic viral hepatitis C Status: Chronic (4) Hepatitis B infection Code(s): B19.10 - Unspecified viral hepatitis B without hepatic coma Status: Acute - Plan 58 YOWM with history of Hep B, Hep C, and liver cirrhosis admitted on 04/29 after being transferred from [facility] for staghorn renal calculus complicated by UTI. Urology deemed no surgical intervention needed but will need a PCNL in the future as an outpatient. Now pending placement. Nephrolithiasis with UTI -Per urology will just need PCNL as an outpatient Reviewed U/A from [place] on 04/28 which showed + nitrite, + leukocytes, + bacteria and yeast, and final urine culture resulted on 05/01 showed no growth Urine culture from 04/30 done at [place] growing Shante glabrata PO Diflucan for total of 2 weeks --completed - p.o Roxicodone Pancytopenia HIV negative -s/p multiple cryoprecipitate transfusions -2/2 liver disease and splenomegaly Heme/onc following, stable for dc. Outpt heme f/u. ETOH Liver cirrhosis/HCV/HBV S/p treatment with Harvoni and recently tenofovir was prescribed with diagnosis of hepatitis B the patient was apparently not compliant Previously worked up in [facility] for liver transplant 2016 but unfortunately was not a candidate due to social issues and lack of support Last EGD and colonoscopy in November 2016, portal hypertensive gastropathy noted on EGD otherwise both exams were normal -GI recommends follow-up as outpatient in clinic when discharged. Continue spironolactone, Lasix, lactulose, rifaximin -Continue Nadolol for PHTN -tenofovir per GI for hepatitis B -CMP reviewed, LFTs continue to trend down. chronic Hepatic encephalopathy -Continue Lactulose 4 times daily and Xifaxan -Slow to respond but otherwise appropriate. -Ammonia 96. Continue with present treatment Hypokalemia Continue KCl PO 20 mEq daily Dry eyes Exam is nonrevealing Continue refresh eyedrops TID PRN DVT prophylaxis: avoid chemical anticoagulation given coagulopathy and thrombocytopenia Palliative care following, input appreciated. Consult physical therapy to increase mobility Continue with physical therapy, needs out of bed daily. Ambulated well yesterday. Patient is not sure if he has scripts for tenofovir, indicates he was not taking before because it was too expensive. Code Status: Full code Discussed Condition With: RN, pt. Discharge Planning: CM attempted to contact brother x 2, no answer. Pt. ready for dc, however he needs to go with family. (2) Liver cirrhosis Qualifiers: Hepatic cirrhosis type: other cirrhosis Qualified Code(s): K74.69 - Other cirrhosis of liver (4) Hepatitis B infection Qualifiers: Viral hepatitis chronicity: chronic
[2018-05-23] MEDS: Ferrous Sulfate 325 MG Tablet PO SCH ×2 (12:46→17:42)
[2018-05-24] MEDS: Nadolol 20 MG Tablet PO SCH (09:03)
[2018-05-24] MEDS: Furosemide 20 MG Tablet PO SCH (09:03)
[2018-05-24] MEDS: Tenofovir 300 MG Tablet PO SCH (09:03)
[2018-05-24] MEDS: rifAXIMin 550 MG Tablet PO SCH ×2 (09:03→20:21)
[2018-05-24] MEDS: Sodium Chloride 0.9% 2 ML Flush BID IV.FLUSH SCH ×4 (09:03→20:23)
[2018-05-24] MEDS: Spironolactone 50 MG Tablet PO SCH (09:03)
[2018-05-24] MEDS: Ferrous Sulfate 325 MG Tablet PO SCH ×2 (11:50→17:46)
--- NOTE | 2018-05-24 16:00 | P.PN ---
Subjective Interval history: Follow-up for liver cirrhosis, hepatic encephalopathy-patient seen and examined. Complains of left chest wall pain, hurts with deep breathing and touch. No radiation, no shortness of breath, no diaphoresis. No fever. Has no other complaints. Physical Exam Vital signs: Vital Signs 05/23/18 16:00 05/23/18 20:00 05/24/18 00:00 Temperature 98.3 F 98.6 F 98.5 F Pulse Rate 60 59 L 59 L Respiratory Rate 18 16 16 Blood Pressure 90/47 L 90/54 L 95/56 L Pulse Oximetry 98 97 97 05/24/18 08:00 05/24/18 12:00 Temperature 98.4 F 98.1 F Pulse Rate 59 L 54 L Respiratory Rate 16 16 Blood Pressure 95/53 L 93/53 L Pulse Oximetry 98 97 Intake & Output 05/23/18 05/24/18 05/24/18 18:59 06:59 18:59 Intake Total 480 / 480 480 / 480 Output Total 300 / 300 Balance 480 / 480 180 / 180 Weight 64.8 kg Intake: Oral 480 / 480 480 / 480 Output: Urine 300 / 300 Other: Post Void Residual 800 # Voids 2 Date of Last Bowel Movement 05/22/18 05/23/18 # Bowel Movements 1 Narrative: GENERAL: 58-year-old male, chronically ill appearing. SKIN: Warm and dry. Jaundice HEAD: Atraumatic. Normocephalic. EYES: Pupils equal and round. Scleral icterus. No injection or drainage. ENT: No nasal bleeding or discharge. Mucous membranes pink and moist. NECK: Trachea midline. No JVD. CARDIOVASCULAR: S1-S2, positive for murmur, 3/6. RESPIRATORY: No accessory muscle use. Clear to auscultation. Breath sounds equal bilaterally. GASTROINTESTINAL: Abdomen soft, non-tender, nondistended. Hepatic and splenic margins not palpable. MUSCULOSKELETAL: No joint abnormality. No obvious deformities. Bilateral pedal pulses with venous discoloration, pedal pulses 2+ bilateral. Trace ankle edema. NEUROLOGICAL: Awake, oriented x 3. Somewhat slow to respond but appropriate. No focal deficits. PSYCHIATRIC: Sad affect. Results - Labs CBC & Chem 7: 05/22/18 06:27 05/22/18 06:27 Assessment and Plan - Assessment (1) Encephalopathy Code(s): G93.40 - Encephalopathy, unspecified Status: Acute (2) Liver cirrhosis Code(s): K74.60 - Unspecified cirrhosis of liver Status: Acute (3) Hep C w/o coma, chronic Code(s): B18.2 - Chronic viral hepatitis C Status: Chronic (4) Hepatitis B infection Code(s): B19.10 - Unspecified viral hepatitis B without hepatic coma Status: Acute - Plan 58 YOWM with history of Hep B, Hep C, and liver cirrhosis admitted on 04/29 after being transferred from [facility] for staghorn renal calculus complicated by UTI. Urology deemed no surgical intervention needed but will need a PCNL in the future as an outpatient. Now pending placement. Nephrolithiasis with UTI -Per urology will just need PCNL as an outpatient Reviewed U/A from [place] on 04/28 which showed + nitrite, + leukocytes, + bacteria and yeast, and final urine culture resulted on 05/01 showed no growth Urine culture from 04/30 done at [place] growing Shante glabrata PO Diflucan for total of 2 weeks --completed - p.o Roxicodone Pancytopenia HIV negative -s/p multiple cryoprecipitate transfusions -2/2 liver disease and splenomegaly Heme/onc following, stable for dc. Outpt heme f/u. ETOH Liver cirrhosis/HCV/HBV S/p treatment with Harvoni and recently tenofovir was prescribed with diagnosis of hepatitis B the patient was apparently not compliant Previously worked up in [facility] for liver transplant 2016 but unfortunately was not a candidate due to social issues and lack of support Last EGD and colonoscopy in November 2016, portal hypertensive gastropathy noted on EGD otherwise both exams were normal -GI recommends follow-up as outpatient in clinic when discharged. Continue spironolactone, Lasix, lactulose, rifaximin -Continue Nadolol for PHTN -tenofovir per GI for hepatitis B -CMP reviewed, LFTs continue to trend down. chronic Hepatic encephalopathy -Continue Lactulose 4 times daily and Xifaxan -Slow to respond but otherwise appropriate. -Ammonia 96. Continue with present treatment Hypokalemia Continue KCl PO 20 mEq daily Dry eyes Exam is nonrevealing Continue refresh eyedrops TID PRN Left chest wall pain, likely costochondritis Reproducible with touch, worse with deep breathing -We will check troponin and EKG Continue Roxicodone as needed DVT prophylaxis: avoid chemical anticoagulation given coagulopathy and thrombocytopenia Palliative care following, input appreciated. Continue with PT, out of bed Continue with physical therapy, needs out of bed daily. Ambulated well yesterday. Patient is not sure if he has scripts for tenofovir, indicates he was not taking before because it was too expensive. Code Status: Full code Discussed Condition With: Patient, cardiovascular or nurse Planning: CM attempted to contact brother x 2, no answer. Pt. ready for dc, however he needs to go with family. (2) Liver cirrhosis Qualifiers: Hepatic cirrhosis type: other cirrhosis Qualified Code(s): K74.69 - Other cirrhosis of liver (4) Hepatitis B infection Qualifiers: Viral hepatitis chronicity: chronic
[2018-05-25] MEDS: rifAXIMin 550 MG Tablet PO SCH ×2 (09:19→20:20)
[2018-05-25] MEDS: Nadolol 20 MG Tablet PO SCH (09:20)
[2018-05-25] MEDS: Spironolactone 50 MG Tablet PO SCH (09:20)
[2018-05-25] MEDS: Sodium Chloride 0.9% 2 ML Flush BID IV.FLUSH SCH ×4 (09:20→20:20)
[2018-05-25] MEDS: Furosemide 20 MG Tablet PO SCH (09:20)
[2018-05-25] MEDS: Tenofovir 300 MG Tablet PO SCH (09:20)
--- NOTE | 2018-05-25 09:41 | P.PN ---
Subjective Interval history: Follow-up for liver cirrhosis, hepatic encephalopathy-patient seen and examined. left chest wall pain better. No sob, no fever, no chills. No other complaints. Physical Exam Vital signs: Vital Signs 05/24/18 12:00 05/24/18 15:50 05/24/18 20:00 Temperature 98.1 F 98.2 F 97.7 F Pulse Rate 54 L 57 L 57 L Respiratory Rate 16 18 19 Blood Pressure 93/53 L 90/52 L 88/54 L Pulse Oximetry 97 94 L 97 05/25/18 00:00 05/25/18 04:00 Temperature 98.1 F 98.6 F Pulse Rate 68 60 Respiratory Rate 16 16 Blood Pressure 88/52 L 92/50 L Pulse Oximetry 98 99 Intake & Output 05/24/18 05/25/18 05/25/18 18:59 06:59 18:59 Output Total 900 / 900 Balance -900 / -900 Weight 64.7 kg Output: Urine 900 / 900 Other: # Voids 3 # Bowel Movements 2 Narrative: GENERAL: 58-year-old male, chronically ill appearing. SKIN: Warm and dry. Jaundice HEAD: Atraumatic. Normocephalic. EYES: Pupils equal and round. Scleral icterus. No injection or drainage. ENT: No nasal bleeding or discharge. Mucous membranes pink and moist. NECK: Trachea midline. No JVD. CARDIOVASCULAR: S1-S2, positive for murmur, 3/6. RESPIRATORY: No accessory muscle use. Clear to auscultation. Breath sounds equal bilaterally. GASTROINTESTINAL: Abdomen soft, non-tender, nondistended. Hepatic and splenic margins not palpable. MUSCULOSKELETAL: No joint abnormality. No obvious deformities. Bilateral pedal pulses with venous discoloration, pedal pulses 2+ bilateral. Trace ankle edema. NEUROLOGICAL: Awake, oriented x 3. Somewhat slow to respond but appropriate. No focal deficits. PSYCHIATRIC: Sad affect. Results - Labs CBC & Chem 7: 05/22/18 06:27 05/22/18 06:27 Laboratory Results - last 24 hr 05/24/18 16:40 Troponin I Less than 0.02 L Assessment and Plan - Assessment (1) Encephalopathy Code(s): G93.40 - Encephalopathy, unspecified Status: Acute (2) Liver cirrhosis Code(s): K74.60 - Unspecified cirrhosis of liver Status: Acute (3) Hep C w/o coma, chronic Code(s): B18.2 - Chronic viral hepatitis C Status: Chronic (4) Hepatitis B infection Code(s): B19.10 - Unspecified viral hepatitis B without hepatic coma Status: Acute - Plan 58 YOWM with history of Hep B, Hep C, and liver cirrhosis admitted on 04/29 after being transferred from [facility] for staghorn renal calculus complicated by UTI. Urology deemed no surgical intervention needed but will need a PCNL in the future as an outpatient. Now pending placement. Nephrolithiasis with UTI -Per urology will just need PCNL as an outpatient Reviewed U/A from [place] on 04/28 which showed + nitrite, + leukocytes, + bacteria and yeast, and final urine culture resulted on 05/01 showed no growth Urine culture from 04/30 done at [place] growing Shante glabrata PO Diflucan for total of 2 weeks --completed - p.o Roxicodone Pancytopenia HIV negative -s/p multiple cryoprecipitate transfusions -2/2 liver disease and splenomegaly Heme/onc following, stable for dc. Outpt heme f/u. ETOH Liver cirrhosis/HCV/HBV S/p treatment with Harvoni and recently tenofovir was prescribed with diagnosis of hepatitis B the patient was apparently not compliant Previously worked up in [facility] for liver transplant 2016 but unfortunately was not a candidate due to social issues and lack of support Last EGD and colonoscopy in November 2016, portal hypertensive gastropathy noted on EGD otherwise both exams were normal -GI recommends follow-up as outpatient in clinic when discharged. Continue spironolactone, Lasix, lactulose, rifaximin -Continue Nadolol for PHTN -tenofovir per GI for hepatitis B -CMP reviewed, LFTs continue to trend down. chronic Hepatic encephalopathy -Continue Lactulose 4 times daily and Xifaxan -Slow to respond but otherwise appropriate. -Ammonia 96. Continue with present treatment Hypokalemia Continue KCl PO 20 mEq daily Dry eyes Exam is nonrevealing Continue refresh eyedrops TID PRN Left chest wall pain, likely costochondritis Reproducible with touch, worse with deep breathing -trop and EKG negative Continue Roxicodone as needed DVT prophylaxis: avoid chemical anticoagulation given coagulopathy and thrombocytopenia Palliative care following, input appreciated. Continue with PT, out of bed Continue with physical therapy, needs out of bed daily. Ambulating fairly well. Patient is not sure if he has scripts for tenofovir, indicates he was not taking before because it was too expensive. Rx in chart Code Status: Full code Discussed Condition With: RN, pt, CM Discharge Planning: CM attempted to contact brother x 2, no answer. (2) Liver cirrhosis Qualifiers: Hepatic cirrhosis type: other cirrhosis Qualified Code(s): K74.69 - Other cirrhosis of liver (4) Hepatitis B infection Qualifiers: Viral hepatitis chronicity: chronic
[2018-05-25] MEDS: Ferrous Sulfate 325 MG Tablet PO SCH ×2 (12:13→17:07)
--- NOTE | 2018-05-25 16:51 | ECG ---
Date Performed: 05/24/2018 Time Performed: 15:11:52 PTAGE: 58 years EKG: Sinus bradycardia. Normal ECG except for rate NO PREVIOUS TRACING DOCTOR: Gini Salgado Interpretating Date/Time 05/25/2018 16:43:40
[2018-05-26] MEDS: Spironolactone 50 MG Tablet PO SCH (08:54)
[2018-05-26] MEDS: rifAXIMin 550 MG Tablet PO SCH ×2 (08:54→21:20)
[2018-05-26] MEDS: Tenofovir 300 MG Tablet PO SCH (08:54)
[2018-05-26] MEDS: Furosemide 20 MG Tablet PO SCH (08:54)
[2018-05-26] MEDS: Nadolol 20 MG Tablet PO SCH (08:55)
[2018-05-26] MEDS: Sodium Chloride 0.9% 2 ML Flush BID IV.FLUSH SCH ×4 (08:56→21:21)
[2018-05-26] MEDS: Ferrous Sulfate 325 MG Tablet PO SCH ×2 (12:46→17:27)
--- NOTE | 2018-05-26 14:14 | P.PNIM ---
Subjective Interval history: Reports that he is homeless and was living in a tent previously. No other complaints at this time feeling better. Physical Exam Vital signs: Vital Signs 05/25/18 16:00 05/25/18 20:00 05/25/18 21:57 Temperature 98.1 F 98.5 F Pulse Rate 55 L 52 L Respiratory Rate 19 18 18 Blood Pressure 86/55 L 91/47 L Pulse Oximetry 98 98 05/26/18 00:00 05/26/18 08:00 05/26/18 08:30 Temperature 98.3 F 98.2 F 98.2 F Pulse Rate 54 L 58 L 58 L Respiratory Rate 18 19 18 Blood Pressure 92/55 L 87/52 L 91/51 L Pulse Oximetry 95 93 L 96 05/26/18 12:00 Temperature 98.4 F Pulse Rate 60 Respiratory Rate 20 Blood Pressure 94/54 L Pulse Oximetry 97 Intake & Output 05/25/18 05/26/18 05/26/18 18:59 06:59 18:59 Intake Total 850 / 850 420 / 420 Output Total 900 / 900 300 / 300 Balance -50 / -50 120 / 120 Weight 66.5 kg Intake: Oral 850 / 850 420 / 420 Output: Urine 900 / 900 300 / 300 Other: Date of Last Bowel Movement 05/25/18 # Bowel Movements 1 Narrative: GENERAL: 58-year-old male, chronically ill appearing. CARDIOVASCULAR: Regular rate and rhythm with murmur RESPIRATORY: No accessory muscle use. Clear to auscultation. Breath sounds equal bilaterally. GASTROINTESTINAL: Abdomen soft, non-tender, nondistended. Hepatic and splenic margins not palpable. Normoactive bowel sounds MUSCULOSKELETAL: No joint abnormality. No obvious deformities. Bilateral pedal pulses with venous discoloration, pedal pulses 2+ bilateral. Trace ankle edema. NEUROLOGICAL: Awake, oriented x 3. No focal deficits. Results - Labs CBC & Chem 7: 05/22/18 06:27 05/22/18 06:27 Assessment and Plan - Assessment (1) Encephalopathy Code(s): G93.40 - Encephalopathy, unspecified Status: Acute (2) Liver cirrhosis Code(s): K74.60 - Unspecified cirrhosis of liver Status: Acute (3) Hep C w/o coma, chronic Code(s): B18.2 - Chronic viral hepatitis C Status: Chronic (4) Hepatitis B infection Code(s): B19.10 - Unspecified viral hepatitis B without hepatic coma Status: Acute - Plan 58 YO WM with history of Hep B, Hep C, and liver cirrhosis admitted on 04/29 after being transferred from [facility] for staghorn renal calculus complicated by UTI. Urology deemed no surgical intervention needed but will need a PCNL in the future as an outpatient. Now pending placement. Nephrolithiasis with UTI -Per urology will just need PCNL as an outpatient Reviewed U/A from [place] on 04/28 which showed + nitrite, + leukocytes, + bacteria and yeast, and final urine culture resulted on 05/01 showed no growth Urine culture from 04/30 done at [place] growing Shante glabrata PO Diflucan for total of 2 weeks --completed - p.o Roxicodone prn pain Pancytopenia HIV negative -s/p multiple cryoprecipitate transfusions -2/2 liver disease and splenomegaly Heme/onc following, stable for dc. Outpt heme f/u. ETOH Liver cirrhosis/HCV/HBV S/p treatment with Harvoni and recently tenofovir was prescribed with diagnosis of hepatitis B the patient was apparently not compliant Previously worked up in [facility] for liver transplant 2016 but unfortunately was not a candidate due to social issues and lack of support Last EGD and colonoscopy in November 2016, portal hypertensive gastropathy noted on EGD otherwise both exams were normal -GI recommends follow-up as outpatient in clinic when discharged. Continue spironolactone, Lasix, lactulose, rifaximin -Continue Nadolol for PHTN -tenofovir per GI for hepatitis B -CMP reviewed, LFTs continue to trend down. chronic Hepatic encephalopathy -Continue Lactulose 4 times daily and Xifaxan -Slow to respond but otherwise appropriate. -L:ast Ammonia 96. Continue with present treatment Hypokalemia Continue KCl PO 20 mEq daily Dry eyes Exam is nonrevealing Continue refresh eyedrops TID PRN Left chest wall pain, likely costochondritis Reproducible with touch, worse with deep breathing -trop and EKG negative Continue Roxicodone as needed DVT prophylaxis: avoid chemical anticoagulation given coagulopathy and thrombocytopenia Palliative care following, input appreciated. Continue with PT, out of bed Continue with physical therapy, needs out of bed daily. Ambulating fairly well. Patient is not sure if he has scripts for tenofovir, indicates he was not taking before because it was too expensive. Discharge Planning: assist with discharge planning (2) Liver cirrhosis Qualifiers: Hepatic cirrhosis type: other cirrhosis Qualified Code(s): K74.69 - Other cirrhosis of liver (4) Hepatitis B infection Qualifiers: Viral hepatitis chronicity: chronic
[2018-05-27] MEDS: Spironolactone 50 MG Tablet PO SCH (10:32)
[2018-05-27] MEDS: Tenofovir 300 MG Tablet PO SCH (10:32)
[2018-05-27] MEDS: rifAXIMin 550 MG Tablet PO SCH ×2 (10:33→20:47)
[2018-05-27] MEDS: Nadolol 20 MG Tablet PO SCH (10:33)
[2018-05-27] MEDS: Furosemide 20 MG Tablet PO SCH (10:33)
[2018-05-27] MEDS: Sodium Chloride 0.9% 2 ML Flush BID IV.FLUSH SCH ×4 (10:34→20:48)
[2018-05-27] MEDS: Carboxymethylcellulose 0.5% Opth Drops 15 ML Bottle EACH EYE PRN (10:40)
--- NOTE | 2018-05-27 11:38 | P.PNIM ---
Subjective Interval history: No changes overnight. Tolerating diet. No pain. Gave phone numbers of her has brother and sister to case management yesterday. Physical Exam Vital signs: Vital Signs 05/26/18 12:00 05/26/18 16:00 05/26/18 20:00 Temperature 98.4 F 98.3 F 98.6 F Pulse Rate 60 63 56 L Respiratory Rate 20 19 20 Blood Pressure 94/54 L 101/50 L 91/52 L Pulse Oximetry 97 96 97 05/27/18 00:00 Temperature 98.5 F Pulse Rate 58 L Respiratory Rate 18 Blood Pressure 88/50 L Pulse Oximetry 97 Intake & Output 05/26/18 05/27/18 05/27/18 18:59 06:59 18:59 Intake Total 740 / 740 240 / 240 Output Total 650 / 650 325 / 325 Balance 90 / 90 -85 / -85 Weight 66.3 kg Intake: Oral 740 / 740 240 / 240 Output: Urine 650 / 650 325 / 325 Other: # Bowel Movements 1 Narrative: GENERAL: 58-year-old male, chronically ill appearing. CARDIOVASCULAR: Regular rate and rhythm with murmur RESPIRATORY: No accessory muscle use. Clear to auscultation. Breath sounds equal bilaterally. GASTROINTESTINAL: Abdomen soft, non-tender, nondistended. Hepatic and splenic margins not palpable. Normoactive bowel sounds MUSCULOSKELETAL: No joint abnormality. No obvious deformities. Bilateral pedal pulses with venous discoloration, pedal pulses 2+ bilateral. Trace ankle edema. NEUROLOGICAL: Awake, oriented x 3. No focal deficits. Results - Labs CBC & Chem 7: 05/22/18 06:27 05/22/18 06:27 Laboratory Results - last 24 hr 05/27/18 07:35 POC Glucose 123 H Assessment and Plan - Assessment (1) Encephalopathy Code(s): G93.40 - Encephalopathy, unspecified Status: Acute (2) Liver cirrhosis Code(s): K74.60 - Unspecified cirrhosis of liver Status: Acute (3) Hep C w/o coma, chronic Code(s): B18.2 - Chronic viral hepatitis C Status: Chronic (4) Hepatitis B infection Code(s): B19.10 - Unspecified viral hepatitis B without hepatic coma Status: Acute - Plan 58 y/o WM with history of Hep B, Hep C, and liver cirrhosis admitted on 04/29 after being transferred from [facility] for staghorn renal calculus complicated by UTI. Urology deemed no surgical intervention needed but will need a PCNL in the future as an outpatient. Now pending placement. Nephrolithiasis with UTI -Per urology will just need PCNL as an outpatient Reviewed U/A from [place] on 04/28 which showed + nitrite, + leukocytes, + bacteria and yeast, and final urine culture resulted on 05/01 showed no growth Urine culture from 04/30 done at [place] growing Shante glabrata PO Diflucan for total of 2 weeks --completed - p.o Roxicodone prn pain Pancytopenia HIV negative -s/p multiple cryoprecipitate transfusions -2/2 liver disease and splenomegaly Heme/onc following, stable for dc. Outpt heme f/u. ETOH Liver cirrhosis/HCV/HBV S/p treatment with Harvoni and recently tenofovir was prescribed with diagnosis of hepatitis B the patient was apparently not compliant Previously worked up in [facility] for liver transplant 2016 but unfortunately was not a candidate due to social issues and lack of support Last EGD and colonoscopy in November 2016, portal hypertensive gastropathy noted on EGD otherwise both exams were normal -GI recommends follow-up as outpatient in clinic when discharged. Continue spironolactone, Lasix, lactulose, rifaximin -Continue Nadolol -tenofovir per GI for hepatitis B -CMP reviewed, LFTs continue to trend down. chronic Hepatic encephalopathy -Continue Lactulose 4 times daily and Xifaxan -Slow to respond but otherwise appropriate. -Last Ammonia 96. Continue with present treatment Hypokalemia Continue KCl PO 20 mEq daily Dry eyes Exam is nonrevealing Continue refresh eyedrops TID PRN Left chest wall pain, likely costochondritis Reproducible with touch, worse with deep breathing -trop and EKG negative Continue Roxicodone as needed DVT prophylaxis: avoid chemical anticoagulation given coagulopathy and thrombocytopenia Palliative care following, input appreciated. Continue with PT, out of bed Continue with physical therapy, needs out of bed daily. Ambulating fairly well. Patient is not sure if he has scripts for tenofovir, indicates he was not taking before because it was too expensive. He states he is homeless living in the [place] prior to presenting to [place] [facility] Discharge Planning: CM assist with discharge planning, attempting to reach patient's family. (2) Liver cirrhosis Qualifiers: Hepatic cirrhosis type: other cirrhosis Qualified Code(s): K74.69 - Other cirrhosis of liver (4) Hepatitis B infection Qualifiers: Viral hepatitis chronicity: chronic
[2018-05-27] MEDS: Ferrous Sulfate 325 MG Tablet PO SCH ×2 (14:35→18:55)
--- NOTE | 2018-05-27 16:32 | P.NPEVAL ---
Disclaimer Patient was given an explanation of the nature and purpose of the evaluation. Patient agreed to proceed with the evaluation and treatment plan. History - Reason for Referral The patient is a 58 year old right handed man who was initially admitted to [facility] on 04/29/2018 on transfer from another institution where he presented for right sided abdominal pain. Abdominal CT showed portal hypertension, cirrhotic liver and staghorn calculus on his right kidney. This patient has a history of hepatitis B and C, and a history of noncompliance and in fact was denied transplant candidacy in 2017 secondary to social issues. He is referred for baseline neuropsychological evaluation to assess cognitive, behavioral and emotional aspects of the injury, and to provide treatment recommendations. - Additional Psychosocial History Smoking Status: Former smoker Tobacco Use In Past 30 Days: Yes Education Level: 12 Years or Less Employment Status: Unemployed Hand Dominance: Right PMFSH - History History Provided By: Patient - Medical History Medical History: Medical History (Last Reviewed 05/26/18 @ 07:47 by Taylor Cruz) Hx of hepatitis C Kidney stone Liver disease - Surgical History Surgical History: Surgical History (Last Reviewed 05/26/18 @ 07:47 by Taylor Cruz) Hx of cholecystectomy - Family History Family History: Family History (Last Reviewed 05/26/18 @ 07:51 by Taylor Cruz) Other Diabetes Hypertension - Tobacco History Second Hand Smoke Exposure: Yes Tobacco Use In Past 30 Days: Yes Smoking Status: Former smoker Tobacco Type: Cigarettes - Alcohol History How Often Do You Have a Drink Containing Alcohol: Monthly or less (prior heavy alcohol use.) - Substance Use History Substance History: No History of Abuse (Denies use) - Substance Use Type Marijuana Status: Active Route Used: By Mouth Reason for Use: Calm Down, Feels Good - Travel History Recent Travel in the [place] Within the Last 8 Weeks: No Recent Travel Out of the Country Within the Last 8 Weeks: No - Immunization History Tetanus Immunization: <5 Years Hx Influenza Vaccine This Season: Yes Medications Active Medications Acetaminophen (Tylenol) 650 mg PO Q4H PRN PRN Reason: SEE LABEL COMMENTS Al Hydroxide/Mg Hydroxide (Milk Of Fay Sanders) 30 ml PO Q12H PRN PRN Reason: Mild Constipation Artificial Tears (Refresh Tears 0.5% Opth Drops) 1 drop EACH EYE TID PRN PRN Reason: DRY EYE(S) Last Admin: 05/27/18 10:40 Dose: 1 drop Bisacodyl (Dulcolax Supp) 10 mg RECTAL DAILY PRN PRN Reason: SEVERE CONSITIPATION Diphenhydramine HCl (Benadryl) 25 mg PO Q4H PRN PRN Reason: SEE LABEL COMMENTS Ferrous Sulfate (Ferosul) 325 mg PO BID@1200,1700 [facility] Last Admin: 05/27/18 14:35 Dose: 325 mg Furosemide (Lasix) 20 mg PO DAILY [facility] Last Admin: 05/27/18 10:33 Dose: 20 mg Lactulose (Lactulose Liq) 30 ml PO DAILY PRN PRN Reason: SEVERE CONSITIPATION Last Admin: 05/05/18 20:49 Dose: 30 ml Lactulose (Lactulose Liq) 30 ml PO QID [facility] Last Admin: 05/27/18 14:34 Dose: 30 ml Nadolol (Corgard) 20 mg PO DAILY [facility] Last Admin: 05/27/18 10:33 Dose: Not Given Ondansetron HCl (Zofran Inj) 4 mg IV.PUSH Q6H PRN PRN Reason: NAUSEA OR VOMITING Last Admin: 05/12/18 11:40 Dose: 4 mg Oxycodone HCl (Roxicodone) 5 mg PO Q4H PRN PRN Reason: pain 2-10 Last Admin: 05/27/18 14:39 Dose: 5 mg Pantoprazole Sodium (Protonix) 40 mg PO DAILY [facility] Last Admin: 05/27/18 10:32 Dose: 40 mg Potassium Chloride (K-Dur) 20 meq PO DAILY [facility] Last Admin: 05/27/18 10:37 Dose: 20 meq Rifaximin (Xifaxan) 550 mg PO Q12HR [facility] Last Admin: 05/27/18 10:33 Dose: 550 mg Sennosides (Senokot) 17.2 mg PO Q12H PRN PRN Reason: Moderate Constipation Sodium Chloride (Ns Flush) 2 ml IV.FLUSH BID [facility] Last Admin: 05/27/18 10:34 Dose: 2 ml Sodium Chloride (Ns Flush) 2 ml IV.FLUSH PRN PRN PRN Reason: FLUSH AFTER USING IV ACCESS Last Admin: 05/05/18 16:16 Dose: 2 ml Sodium Chloride (Ns Flush) 2 ml IV.FLUSH BID [facility] Last Admin: 05/27/18 10:35 Dose: 2 ml Sodium Chloride (Ns Flush) 2 ml IV.FLUSH PRN PRN PRN Reason: FLUSH AFTER USING IV ACCESS Spironolactone (Aldactone) 50 mg PO DAILY [facility] Last Admin: 05/27/18 10:32 Dose: 50 mg Tenofovir Disoproxil Fumarate (Viread) 300 mg PO DAILY [facility] Last Admin: 05/27/18 10:32 Dose: 300 mg Zinc Sulfate (Zinc-220) 220 mg PO DAILY [facility] Last Admin: 05/27/18 10:32 Dose: 220 mg Mental Status Assessment - Mental Status Orientation: oriented to: Self, Place, Time, Situation Mental Status: WFL: Language/interactions, Visuospatial/construction, Variable: Attention, Learning/memory, Problem-solving, Impaired: Thought processing Absent: Hallucinations, Delusions Adjustment/Coping Assessment - Adjustment/Coping Adjustment/Coping: None: Depression, Anxiety, Awareness, Mild: Insight - Observation In terms of emotional functioning, the patient demonstrated challenges. This patient demonstrated no signs of agitation, impulsivity or disinhibition, nor was there remarkable evidence of a formal thought disorder or psychosis. There was marginal evidence of depression or anxiety. The Geriatric Depression Scale- Short Form was administered given the ease to which it is administered to persons with known neurological pathology, and the patient endorsed 3 of 15 symptoms, which falls within the non depressed range. Thought content was free from suicidal, homicidal or paranoid ideation, and thought processes were logical but bradyphrenic. The patients mood was euthymic, and his affect was stable and appropriate. The patient appears to possess some degree of insight and awareness into their situation and within the limits of this brief evaluation, adequate judgment. - Goals/Team Members LTG Status: Deferred STG Status: Deferred Team Members: Neuropsychologist Effort Effort: Below average Cognition Assessment - Attention/Processing Speed Rating: WFL: Attention/processing, Language, Spatial judgment, Awareness - insight adjustment, Variable: Immediate & delayed memory, Executive Observation: The patient was alert and oriented to person, place, time and circumstances surrounding the recent hospitalization. The Mini-Mental State Exam was administered, and the patient obtained a score of 24 out of 30 points, which falls in the normal range. However, on further evaluation, specific deficits were identified. In terms of attention skills, the patient exhibited relatively normal abilities. The patient was able to remain on task and remember basic and complex verbal instructions. The patient was able to spell the word WORLD backwards, although he did have some difficulties with initial registration of information. In terms of memory functioning, the patient exhibited challenges. The patients initial registration of verbal information was poor, and the patient was able to improve his memory with repetition, although not to normal levels. After a period of delay, the patient was able to recall some of this information from memory. More specifically, on the Luria Memory Words Test- Short Form, the patients trial one performance was 1 of 7 words, trial five performance was 3 of 7 words, the patients Total Learning score was 10 (below cut-off), and the patients Delayed recall score was 2 of 7 words (below cut-off ). The patients ability to recall verbal information in a paragraph format was considered below normal, but it is noteworthy that he was able to recall 75 % of this information after a brief delay. In terms of speech and language skills, the patient demonstrated normal abilities. The patients initiated spontaneous conversation throughout the assessment. Speech was characterized by adequate prosody, grammar, and articulation, but diminished volume and rate. No remarkable dysnomic or paraphasic errors were noted either during conversational speech or on confrontation naming tasks. Reading recognition skills were adequate, as were writing skills. He earned a standard score of 70 (percentile rank of 2), which is however relatively consistent with his educational attainment and estimated baseline intellectual functioning. In terms of problem-solving skills, the patient exhibited challenges, although these challenges are understood within the context of estimates of his baseline intellectual functioning and metabolic challenges. The patients ability to understand abstraction reasoning was limited, as reflected in his difficulties with abstracting essential shared characteristics of objects and concepts. Mathematical reasoning skills were also below normal. Speed of information processing, as evaluated by both the Letter and Category Fluency Tests was below normal, reflective of bradyphrenia often observed in metabolic conditions. Of note however, there was no evidence of ideomotor apraxia or constructional difficulties during this brief evaluation. 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 His neuropsychological profile, while certainly indicative of neurocognitive challenges particularly with learning efficiency, memory and processing speed, nevertheless otherwise shows that this patient is able to appreciate a situation and its likely consequences, understands the severity of his medical condition and treatments required, and challenges he will face going forward with his treatment. 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 Recommendations Recommendations: In general, this patient does retain decision making capacity in spite of his mild neurocognitive disorder. He does demonstrate the ability to appreciate a situation and its likely consequences, although his ability to manipulate information rationally is attenuated (but not impaired) by his current medical condition. He will require assistance on discharge, particularly home health and possible rehabilitation efforts, however he does have the right to disagree and to not comply with medical recommendations. Complete cessation from alcohol is recommended. If he is unable to do so, it is recommended that he consider treatment at an alcohol treatment program at best, and 12-step AA program at the very least. His chronic alcohol dependence will present a formidable challenge to his continued health.
--- NOTE | 2018-05-27 17:09 | P.PNPAL ---
Reason for Visit Reason for visit: a. To assist with evaluation and management of symptoms including: Encephalopathy, pain b. To assist medical decision maker(s) with: better understanding of current medical conditions; weighing benefits/burdens of medical treatment options; making medical treatment decisions. Subjective Subjective/Interval History: This 58-year-old patient who was transferred here to [facility] from [facility] in [place] on 04/29/18. There he had gone for evaluation of right-sided abdominal pain on 04/28. He also presented with constipation and dark urine. Abdominal CT indicative of portal hypertension changes, cirrhotic liver, and 3.5 cm staghorn calculus right kidney with possible mild duodenitis and cholelithiasis. + pancytopenia, + UTI - started on zosyn IV. He was transferred to [facility] due to staghorn calculus w concomitant infection, and requiring a urologist evaluation. also noted to have chronic hep C, cirrhosis, stable. Pt seen today to follow up on comfort, goals with pt and/or decision maker. Patient was seen in his room with no visitors present. He remains mildly encephalopathic, exhibiting a slowed reaction and understanding to conversation. He answers slowly but is overall oriented. 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 He continues to have intermittent left chest wall pain for which he receives oxycodone 5 mg every 4 hours as needed. He is using an average of 2 doses daily. He describes the pain as 9/10, sharp, moderate to severe, associated with deep breathing, cough, palpation and movement. Family/Friend Interactions: No family is at bedside at this time. Discussed discharge planning with patient who states that "all I need is a bus ticket to go to my father's." . Advance Directives Advance Directives Date on File: 05/07/18 Health Care Surrogate Name and Number: Roseline Valadez (brett) Objective Vital Signs: Vital Signs 05/26/18 20:00 05/27/18 00:00 05/27/18 12:00 Temperature 98.6 F 98.5 F 98.7 F Pulse Rate 56 L 58 L 57 L Respiratory Rate 20 18 17 Blood Pressure 91/52 L 88/50 L 99/54 L Pulse Oximetry 97 97 95 05/27/18 16:00 Temperature 98.1 F Pulse Rate 58 L Respiratory Rate 17 Blood Pressure 85/49 L Pulse Oximetry 95 Intake & Output 05/26/18 05/27/18 05/27/18 18:59 06:59 18:59 Intake Total 740 / 740 240 / 240 Output Total 650 / 650 325 / 325 Balance 90 / 90 -85 / -85 Weight 146 lb 2.664 oz Intake: Oral 740 / 740 240 / 240 Output: Urine 650 / 650 325 / 325 Other: Date of Last Bowel Movement 05/27/18 # Bowel Movements 1 Physical Exam: CONSTITUTIONAL/GENERAL: This is a chronically ill appearing male, sleepy, oriented. TUBES/LINES/DRAINS: PIV uE. SKIN: No rashes, or lesions. Ecchymoses Lt anterior shoulder. Mild jaundice. Skin warm/dry. EYES: Pupils equal and round and reactive. Extraocular motions intact. + scleral icterus, improving. No injection or drainage. Fundi not examined. ENT: Hearing grossly normal. Nose without bleeding or purulent drainage. Throat without visible erythema, exudates, masses, or lesions.MM dry CARDIOVASCULAR: Regular rate and rhythm , loud 3/6 systolic ejection murmur . No JVD. Peripheral pulses symmetric. Trace pedal edema. RESPIRATORY/CHEST: Symmetric, unlabored respirations. on room air. Clear to auscultation. Breath sounds equal bilaterally. GASTROINTESTINAL: Abdomen soft, mildly tender, +distended. ,+distended/slight splenomegaly . No guarding. Bowel sounds present. GENITOURINARY: Without palpable bladder distension. MUSCULOSKELETAL: Extremities without clubbing, cyanosis. No joint tenderness or effusion noted. No calf tenderness. chronic vascular discoloration visible to bilateral lower legs, trace edema Lower legs NEUROLOGICAL: Awake , oriented x3. Forgetful, though insight improving. cooperative, follows commands. Moves all 4 extremities, able to reposition self in bed. PSYCHIATRIC: somewhat flat/ quiet . Diagnostic Tests Laboratory: Laboratory Results - last 72 hr 05/24/18 05/27/18 16:40 07:35 POC Glucose 123 H Troponin I Less than 0.02 L Result Diagrams: 05/22/18 06:27 05/22/18 06:27 Imaging: Chest CTA 04/30/18 00:00 CONCLUSION: 1. This study is negative for pulmonary embolism. 2. Tiny right pleural effusion. Spleen Ultrasound 04/30/18 00:00 CONCLUSION: 1. Splenomegaly with spleen measuring 19 cm in length. There are prominent central splenic veins. This may reflect portal hypertension and possibly splenorenal collaterals in this patient with history of cirrhosis. Venous Doppler Study 05/04/18 00:00 CONCLUSION: 1. Small echogenic focus within the right popliteal vein consistent with possible minimal residual nonocclusive thrombus. Abdomen X-Ray 05/06/18 00:00 CONCLUSION: Double-J stent in good position on the right. Large right staghorn calculus. Venous Doppler Study 05/06/18 00:00 CONCLUSION: 1. The tiny nonocclusive thrombus of the right popliteal vein is unchanged. 2. Otherwise negative. Assessment and Plan - Disease Oriented Problem List (1) Hepatitis B infection (2) Staghorn renal calculus (3) Acute UTI (4) Liver cirrhosis (5) Hep C w/o coma, chronic Pertinent Non-Medical Issues: Psychosocial: Patient indicates originally from [place]. Did live in [place] for about a year but has since been in [place] for several years. 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 Has 7 siblings though does not remain in close communication with them. Spiritual: Orthodox, no particular affiliation. Requests tire setter visit, tire setter notified. Legal:Patient today mildly encephalopathic. Ammonia level elevated. Partially oriented. Appears capacitated enough to participate some in decision making but does not have full insight. He is able to designate healthcare surrogate names his brother Arley Valadez as someone he would trust to make decisions in an emergency. Would recommend shared decision making at this point given his fluctuating mental status. Ethical issues impacting care: No ethical issues identified Important Contacts: Brother Arley Valadez (Brett) in [place]- [facility] #[phone] XXX OLD # [phone] Brother ARLEY in [facility] [phone] . Prognosis: Patient is a poor historian, full medical history not readily available. Appears he has had some component of chronic liver disease, now with superimposed acute liver dysfunction. Hepatitis B, hepatitis C positive. Initiated on treatment here. Encephalopathic. Bilirubin trending up. Possible current acute disease process may be stable with ongoing aggressive treatment w antiviral, though he remains high risk for ongoing if liver disease does not stabilize or respond to treatment. At that point may be appropriate for hospice. On the other hand if goals were comfort oriented and did not desire further aggressive interventions then would also be hospice appropriate now. Code Status: Full Code Plan: Legal decision maker:Patient today mildly encephalopathic. Ammonia level elevated. Partially oriented. Appears capacitated enough to participate some in decision making but does not have full insight. He is able to designate healthcare surrogate names his brother Arley Valadez as someone he would trust to make decisions in an emergency. Would recommend shared decision making at this point given his fluctuating mental status. Goals: Patient goals stated to continue treatment he "wants to live ". He has limited insight and understanding at this time. Designated his brother Arley Landeros as healthcare surrogate. I have spoken at length with this brother today. He is in agreement to serve as HCS. Update and review of conditions provided today to brother. He wishes to talk to other family members, process information. No decisions made today. He plans to talk further with palliative tomorrow 05/12/18. He is unable to care for patient himself he lives out of state. He feels patient will likely need placement. Patient just moved here from [place] possibly in March at that time he had Medicaid coverage in [place] . 05/18/18 pt mental status improving. May be able to participate more in decision making, or make his own decisions in coming days. Brother Arley is assisting him to obtain disability checks which may assist with his housing circumstance at d/c. CODE STATUS: Full code by default SYMPTOMS: --Pain-has had some ongoing pain to right flank/abdomen indicates this was new onset at time of presentation to [facility]. He does endorse good relief with use of prn--indicates he had not previously been on any chronic opiates for chronic pain syndromes. Has been using oxycodone 5 mg every 4 as needed, averaging twice daily, effective per patient report. Continue to monitor requirements/effectiveness. Cautious up titration given concern for lethargy, mental status w encephalopathy --Encephalopathy-patient with fluctuating mental status, hepatitis, bilirubin trending up. Ammonia level down to 96 though remains elevated. On lactulose, rifaximin added. Oriented though forgetful, poor historian, poor insight. Possible this may improve if liver functions improved. Bilirubin uptrending, increased to 12.2 from admission level 8.5. Transaminases remain elevated. -- n/v-intermittent, none today. has prn zofran available. Monitor requirements/effectiveness. Palliative care will continue to follow during hospital course as condition evolves, to assist patient/decision-maker with understanding of medical conditions, weighing benefits/burdens of treatment options, for clarification of goals of treatment. Additionally will assist with any symptoms of palliative concern Attestation Attestation: To help prompt me to consider important information that might be impacting today's encounter and assessment, information from prior notes written by myself or my colleagues may have been "brought forward" into today's note. My signature on this note, however, is an attestation that I personally performed the exam, history, and/or decision-making noted today, and, unless otherwise indicated, the interactions with patient, family, and staff as well as the review of records all occurred today. I also attest that the listed assessment and stated plan reflect my best clinical judgment today based on the combination of historical information, prior notes, and today's exam/ interactions. When time spent is documented, it refers only to time spent today by the signer, or if indicated, combined time spent today by collaborating physician/nurse practitioner. .
[2018-05-28] MEDS: Nadolol 20 MG Tablet PO SCH (08:56)
[2018-05-28] MEDS: Furosemide 20 MG Tablet PO SCH (09:30)
[2018-05-28] MEDS: rifAXIMin 550 MG Tablet PO SCH ×2 (09:31→20:31)
[2018-05-28] MEDS: Tenofovir 300 MG Tablet PO SCH (09:31)
[2018-05-28] MEDS: Spironolactone 50 MG Tablet PO SCH (09:31)
[2018-05-28] MEDS: Sodium Chloride 0.9% 2 ML Flush BID IV.FLUSH SCH ×4 (09:31→20:35)
--- NOTE | 2018-05-28 11:33 | P.PNIM ---
Subjective Interval history: Doing okay. No concerns. Tolerating diet. Physical Exam Vital signs: Vital Signs 05/27/18 12:00 05/27/18 16:00 05/27/18 20:00 Temperature 98.7 F 98.1 F 98.4 F Pulse Rate 57 L 58 L 57 L Respiratory Rate 17 17 18 Blood Pressure 99/54 L 85/49 L 90/50 L Pulse Oximetry 95 95 98 05/28/18 00:00 05/28/18 08:00 Temperature 98.2 F 98.1 F Pulse Rate 59 L 64 Respiratory Rate 18 16 Blood Pressure 104/59 L 82/49 L Pulse Oximetry 97 97 Intake & Output 05/27/18 05/28/18 05/28/18 18:59 06:59 18:59 Intake Total 960 / 960 800 / 800 Output Total 100 / 100 Balance 860 / 860 800 / 800 Weight 66.5 kg Intake: Oral 960 / 960 800 / 800 Output: Urine 100 / 100 Other: # Voids 600 Date of Last Bowel Movement 05/27/18 05/27/18 # Bowel Movements 3 Narrative: GENERAL: 58-year-old male, chronically ill appearing. CARDIOVASCULAR: Regular rate and rhythm with murmur RESPIRATORY: No accessory muscle use. Clear to auscultation. Breath sounds equal bilaterally. GASTROINTESTINAL: Abdomen soft, non-tender, nondistended. Hepatic and splenic margins not palpable. Normoactive bowel sounds MUSCULOSKELETAL: No joint abnormality. No obvious deformities. Trace ankle edema. NEUROLOGICAL: Awake, oriented x 3. No focal deficits. Results - Labs CBC & Chem 7: 05/22/18 06:27 05/22/18 06:27 Assessment and Plan - Assessment (1) Encephalopathy Code(s): G93.40 - Encephalopathy, unspecified Status: Acute (2) Liver cirrhosis Code(s): K74.60 - Unspecified cirrhosis of liver Status: Acute (3) Hep C w/o coma, chronic Code(s): B18.2 - Chronic viral hepatitis C Status: Chronic (4) Hepatitis B infection Code(s): B19.10 - Unspecified viral hepatitis B without hepatic coma Status: Acute - Plan 58 y/o WM with history of Hep B, Hep C, and liver cirrhosis admitted on 04/29 after being transferred from [facility] for staghorn renal calculus complicated by UTI. Urology deemed no surgical intervention needed but will need a PCNL in the future as an outpatient. Now pending placement. Nephrolithiasis with UTI -Per urology will just need PCNL as an outpatient Reviewed U/A from [place] on 04/28 which showed + nitrite, + leukocytes, + bacteria and yeast, and final urine culture resulted on 05/01 showed no growth Urine culture from 04/30 done at [place] growing Shante glabrata PO Diflucan for total of 2 weeks --completed - p.o Roxicodone prn pain Pancytopenia HIV negative -s/p multiple cryoprecipitate transfusions -2/2 liver disease and splenomegaly Heme/onc following, stable for dc. Outpt heme f/u. ETOH Liver cirrhosis/HCV/HBV S/p treatment with Harvoni and recently tenofovir was prescribed with diagnosis of hepatitis B the patient was apparently not compliant Previously worked up in [facility] for liver transplant 2016 but unfortunately was not a candidate due to social issues and lack of support Last EGD and colonoscopy in November 2016, portal hypertensive gastropathy noted on EGD otherwise both exams were normal -GI recommends follow-up as outpatient in clinic when discharged. Continue spironolactone, Lasix, lactulose, rifaximin -Continue Nadolol -tenofovir per GI for hepatitis B -CMP reviewed, LFTs continue to trend down. chronic Hepatic encephalopathy -Continue Lactulose 4 times daily and Xifaxan -Slow to respond but otherwise appropriate. -Last Ammonia 96. Continue with present treatment' Cognitive evaluation performed by Dr. Mac neuropsychiatry, patient does have a medical decision capacity. He will need assistance upon discharge based on having mild cognitive disorder. Hypokalemia Continue KCl PO 20 mEq daily Dry eyes Exam is nonrevealing Continue refresh eyedrops TID PRN Left chest wall pain, likely costochondritis Reproducible with touch, worse with deep breathing -trop and EKG negative Continue Roxicodone as needed DVT prophylaxis: avoid chemical anticoagulation given coagulopathy and thrombocytopenia Palliative care following, input appreciated. Continue with PT, out of bed Continue with physical therapy, needs out of bed daily. Ambulating fairly well. Patient is not sure if he has scripts for tenofovir, indicates he was not taking before because it was too expensive. He states he is homeless living in the [facility] prior to presenting to [facility] Discharge Planning: CM assist with discharge planning, attempting to reach patient's family. (2) Liver cirrhosis Qualifiers: Hepatic cirrhosis type: other cirrhosis Qualified Code(s): K74.69 - Other cirrhosis of liver (4) Hepatitis B infection Qualifiers: Viral hepatitis chronicity: chronic
[2018-05-28] MEDS: Ferrous Sulfate 325 MG Tablet PO SCH ×2 (12:49→17:11)
[2018-05-29] MEDS: rifAXIMin 550 MG Tablet PO SCH ×3 (08:12→21:19)
[2018-05-29] MEDS: Spironolactone 50 MG Tablet PO SCH (08:13)
[2018-05-29] MEDS: Furosemide 20 MG Tablet PO SCH (08:13)
[2018-05-29] MEDS: Tenofovir 300 MG Tablet PO SCH (08:14)
[2018-05-29] MEDS: Nadolol 20 MG Tablet PO SCH (08:14)
[2018-05-29] MEDS: Sodium Chloride 0.9% 2 ML Flush BID IV.FLUSH SCH ×6 (08:14→21:19)
[2018-05-29] MEDS: Ferrous Sulfate 325 MG Tablet PO SCH ×2 (11:34→16:57)
--- NOTE | 2018-05-29 15:38 | P.PNIM ---
Subjective Interval history: Follow-up generalized weakness, pancytopenia, nephrolithiasis with UTI, chronic hepatic encephalopathy, hypokalemia, EtOH with liver cirrhosis/HCV/HBV. Patient seen and examined sitting in the wheelchair, rolling himself in the room without any difficulty. Patient denies any pain, chest pain, or shortness of breath. Patient denies any headache or dizziness, denies any fever or chills. Patient denies any abdominal pain, nausea, vomiting, diarrhea or constipation. Nurse denies any acute concern for the patient. Physical Exam Vital signs: Vital Signs 05/28/18 15:39 05/28/18 20:00 05/29/18 00:00 Temperature 98.1 F 98.1 F 97.9 F Pulse Rate 101 H 74 74 Respiratory Rate 16 18 18 Blood Pressure 102/50 L 104/70 101/57 L Pulse Oximetry 98 99 98 05/29/18 08:00 05/29/18 12:00 Temperature 98.2 F 98.1 F Pulse Rate 76 62 Respiratory Rate 16 18 Blood Pressure 101/59 L 103/58 L Pulse Oximetry 97 97 Intake & Output 05/28/18 05/29/18 05/29/18 18:59 06:59 18:59 Intake Total 1000 / 1000 Output Total 4 / 4 300 / 300 Balance 996 / 996 -300 / -300 Weight 66.4 kg Intake: Oral 1000 / 1000 Output: Urine 4 / 4 300 / 300 Other: Date of Last Bowel Movement 05/28/18 05/28/18 05/29/18 # Bowel Movements 1 Narrative: GENERAL: Chronically ill appearing, elderly-looking male SKIN: Warm and dry. HEAD: Atraumatic. Normocephalic. EYES: Pupils equal and round. No scleral icterus. No injection or drainage. ENT: No nasal bleeding or discharge. Mucous membranes pink and moist. NECK: Trachea midline. No JVD. CARDIOVASCULAR: Regular rate and rhythm. RESPIRATORY: No accessory muscle use. Clear to auscultation. Breath sounds equal bilaterally. GASTROINTESTINAL: Abdomen soft, non-tender, nondistended. Hepatic and splenic margins not palpable. MUSCULOSKELETAL: Extremities without clubbing, cyanosis, or edema. No obvious deformities. NEUROLOGICAL: Awake and alert x3. No obvious cranial nerve deficits. Generalized weakness, moving all 4 extremities normal speech. PSYCHIATRIC: Flat mood and affect; insight and judgment poor, cooperative Results - Labs CBC & Chem 7: 05/22/18 06:27 05/22/18 06:27 Assessment and Plan - Assessment (1) Encephalopathy Code(s): G93.40 - Encephalopathy, unspecified Status: Acute (2) Liver cirrhosis Code(s): K74.60 - Unspecified cirrhosis of liver Status: Acute (3) Hep C w/o coma, chronic Code(s): B18.2 - Chronic viral hepatitis C Status: Chronic (4) Hepatitis B infection Code(s): B19.10 - Unspecified viral hepatitis B without hepatic coma Status: Acute - Plan This is a 58 y/o elderly-looking male with history of Hep B, Hep C, and liver cirrhosis admitted on 04/29 after being transferred from [facility] for staghorn renal calculus complicated by UTI. Urology deemed no surgical intervention needed but will need a PCNL in the future as an outpatient. Now pending placement. Nephrolithiasis with UTI -Per urology will just need PCNL as an outpatient Reviewed U/A from [place] on 04/28 which showed + nitrite, + leukocytes, + bacteria and yeast, and final urine culture resulted on 05/01 showed no growth Urine culture from 04/30 done at [place] growing Shante glabrata, recent UA 05/07 - no growth in 48 hrs S/p PO Diflucan treatment for total of 2 weeks -completed -Continue Roxicodone for prn pain, pain controlled Pancytopenia HIV negative -s/p multiple cryoprecipitate transfusions -2/2 liver disease and splenomegaly Heme/onc following, stable for dc. -Outpatient follow-up with hematology ETOH Liver cirrhosis/HCV/HBV S/p treatment with Harvoni and recently tenofovir was prescribed with diagnosis of hepatitis B the patient was apparently not compliant Previously worked up in [facility] for liver transplant 2016 but unfortunately was not a candidate due to social issues and lack of support Last EGD and colonoscopy in November 2016, portal hypertensive gastropathy noted on EGD otherwise both exams were normal -GI recommends follow-up as outpatient in clinic when discharged. Continue spironolactone, Lasix, lactulose, rifaximin -Continue Nadolol -tenofovir per GI for hepatitis B -Monitor CMP chronic Hepatic encephalopathy -Continue Lactulose 4 times daily and Xifaxan -Slow to respond but otherwise appropriate. -Last Ammonia 96. Continue with present treatment, monitor ammonia level -Cognitive evaluation performed by Dr. Mac neuropsychiatry, patient does have a medical decision capacity. He will need assistance upon discharge based on having mild cognitive disorder. Hypokalemia Continue KCl PO 20 mEq daily -Monitor electrolytes, replete as needed Dry eyes Exam is nonrevealing Continue refresh eyedrops TID PRN Left chest wall pain, likely costochondritis Reproducible with touch, worse with deep breathing -trop and EKG negative Continue Roxicodone as needed Generalized weakness Palliative care following/input appreciated -Continue physical therapy -Out of bed daily DVT prophylaxis: avoid chemical anticoagulation given coagulopathy and thrombocytopenia He states he is homeless living in the [facility] prior to presenting to [place] ED Code Status: Full code Discussed Condition With: Patient and nurse Discharge Planning: hvac services professional consult for placement (2) Liver cirrhosis Qualifiers: Hepatic cirrhosis type: other cirrhosis Qualified Code(s): K74.69 - Other cirrhosis of liver (4) Hepatitis B infection Qualifiers: Viral hepatitis chronicity: chronic
--- NOTE | 2018-05-29 16:26 | P.PN ---
Subjective Interval history: NOT SEEN Physical Exam Vital signs: Vital Signs 05/28/18 20:00 05/29/18 00:00 05/29/18 08:00 Temperature 98.1 F 97.9 F 98.2 F Pulse Rate 74 74 76 Respiratory Rate 18 18 16 Blood Pressure 104/70 101/57 L 101/59 L Pulse Oximetry 99 98 97 05/29/18 12:00 Temperature 98.1 F Pulse Rate 62 Respiratory Rate 18 Blood Pressure 103/58 L Pulse Oximetry 97 Intake & Output 05/28/18 05/29/18 05/29/18 18:59 06:59 18:59 Intake Total 1000 / 1000 Output Total 4 / 4 300 / 300 Balance 996 / 996 -300 / -300 Weight 66.4 kg Intake: Oral 1000 / 1000 Output: Urine 4 / 4 300 / 300 Other: Date of Last Bowel Movement 05/28/18 05/28/18 05/29/18 # Bowel Movements 1 Narrative: GENERAL: Chronically ill appearing, elderly-looking male SKIN: Warm and dry. CARDIOVASCULAR: Regular rate and rhythm. RESPIRATORY: No accessory muscle use. Clear to auscultation. Breath sounds equal bilaterally. GASTROINTESTINAL: Abdomen soft, non-tender, nondistended. MUSCULOSKELETAL: Extremities without clubbing, cyanosis, or edema. No obvious deformities. NEUROLOGICAL: Awake and alert x3. No obvious cranial nerve deficits. Generalized weakness, moving all 4 extremities normal speech. PSYCHIATRIC: Flat mood and affect; insight and judgment poor, cooperative Results - Labs CBC & Chem 7: 05/22/18 06:27 05/22/18 06:27 - Imaging ITS Impressions Chest CTA 04/30/18 00:00 CONCLUSION: 1. This study is negative for pulmonary embolism. 2. Tiny right pleural effusion. Spleen Ultrasound 04/30/18 00:00 CONCLUSION: 1. Splenomegaly with spleen measuring 19 cm in length. There are prominent central splenic veins. This may reflect portal hypertension and possibly splenorenal collaterals in this patient with history of cirrhosis. Abdomen X-Ray 05/06/18 00:00 CONCLUSION: Double-J stent in good position on the right. Large right staghorn calculus. Venous Doppler Study 05/06/18 00:00 CONCLUSION: 1. The tiny nonocclusive thrombus of the right popliteal vein is unchanged. 2. Otherwise negative. - Procedures none Assessment and Plan - Assessment (1) Encephalopathy Code(s): G93.40 - Encephalopathy, unspecified Status: Acute (2) Liver cirrhosis Code(s): K74.60 - Unspecified cirrhosis of liver Status: Acute (3) Hep C w/o coma, chronic Code(s): B18.2 - Chronic viral hepatitis C Status: Chronic (4) Hepatitis B infection Code(s): B19.10 - Unspecified viral hepatitis B without hepatic coma Status: Acute - Plan This is a 58 y/o elderly-looking male with history of Hep B, Hep C, and liver cirrhosis admitted on 04/29 after being transferred from [facility] for staghorn renal calculus complicated by UTI. Urology deemed no surgical intervention needed but will need a PCNL in the future as an outpatient. Now pending placement. Nephrolithiasis with UTI -Per urology will just need PCNL as an outpatient Reviewed U/A from [facility] on 04/28 which showed + nitrite, + leukocytes, + bacteria and yeast, and final urine culture resulted on 05/01 showed no growth Urine culture from 04/30 done at [place] growing Shante glabrata, recent UA 05/07 - no growth in 48 hrs S/p PO Diflucan treatment for total of 2 weeks -completed -Continue Roxicodone for prn pain, pain controlled Pancytopenia HIV negative -s/p multiple cryoprecipitate transfusions -2/2 liver disease and splenomegaly Heme/onc following, stable for dc. -Outpatient follow-up with hematology ETOH Liver cirrhosis/HCV/HBV S/p treatment with Harvoni and recently tenofovir was prescribed with diagnosis of hepatitis B the patient was apparently not compliant Previously worked up in [facility] for liver transplant 2016 but unfortunately was not a candidate due to social issues and lack of support Last EGD and colonoscopy in November 2016, portal hypertensive gastropathy noted on EGD otherwise both exams were normal -GI recommends follow-up as outpatient in clinic when discharged. Continue spironolactone, Lasix, lactulose, rifaximin -Continue Nadolol -tenofovir per GI for hepatitis B -Monitor CMP chronic Hepatic encephalopathy -Continue Lactulose 4 times daily and Xifaxan -Slow to respond but otherwise appropriate. -Last Ammonia 96. Continue with present treatment, monitor ammonia level -Cognitive evaluation performed by Dr. Mac neuropsychiatry, patient does have a medical decision capacity. He will need assistance upon discharge based on having mild cognitive disorder. Hypokalemia Continue KCl PO 20 mEq daily -Monitor electrolytes, replete as needed Dry eyes Exam is nonrevealing Continue refresh eyedrops TID PRN Left chest wall pain, likely costochondritis Reproducible with touch, worse with deep breathing -trop and EKG negative Continue Roxicodone as needed Generalized weakness Palliative care following/input appreciated -Continue physical therapy -Out of bed daily DVT prophylaxis: avoid chemical anticoagulation given coagulopathy and thrombocytopenia He states he is homeless living in the [facility] prior to presenting to [facility] ED Discharge Planning: Needs placement (2) Liver cirrhosis Qualifiers: Hepatic cirrhosis type: other cirrhosis Qualified Code(s): K74.69 - Other cirrhosis of liver (4) Hepatitis B infection Qualifiers: Viral hepatitis chronicity: chronic
[2018-05-30 06:21] LABS: Baso % (Auto) 0.4 % (0.0-2.0); Eos # (Auto) 0.1 th/mm3 (0.0-0.4); Eos % (Auto) 1.9 % (0.0-4.0); Hematocrit 28.1 % (39.0-51.0); Hemoglobin 9.9 gm/dL (13.0-17.0); Lymph # (Auto) 1.3 th/mm3 (1.0-4.8); Lymph % (Auto) 18.9 % (9.0-44.0); Mean Corpuscular HGB Conc 35.4 % (32.0-36.0); Mean Corpuscular Hemoglobin 36.9 pg (27.0-34.0); Mean Corpuscular Volume 104.4 fL (80.0-100.0); Mean Platelet Volume 9.3 fL (7.0-11.0); Mono # (Auto) 0.7 th/mm3 (0.0-0.9); Mono % (Auto) 10.7 % (0.0-8.0); Neut # (Auto) 4.6 th/mm3 (1.8-7.7); Neut % (Auto) 68.1 % (16.0-70.0); Platelet Count 76 th/mm3 (150-450); Red Blood Count 2.69 mil/mm3 (4.50-5.90); Red Cell Distribution Width 19.7 % (11.6-17.2); White Blood Count 6.8 th/mm3 (4.0-11.0)
[2018-05-30 06:45] LABS: Albumin 1.6 g/dL (3.4-5.0); Anion Gap 8 meq/L (5-15); Aspartate Aminotransferase 81 U/L (15-37); Blood Urea Nitrogen 13 mg/dL (7-18); Calcium 8.3 mg/dL (8.5-10.1); Chloride 90 meq/L (98-107); Glomerular Filtration Rate 61 mL/min (>89); Glucose,Random 87 mg/dL (74-106); Potassium 4.8 meq/L (3.5-5.1); Sodium 125 meq/L (136-145)
[2018-05-30 06:46] LABS: Alanine Aminotransferase 52 U/L (12-78)
[2018-05-30 06:48] LABS: Alkaline Phosphatase 166 U/L (45-117); Total Protein 6.8 g/dL (6.4-8.2)
[2018-05-30 08:30] LABS: Ovalocytes 1+; Platelet Morphology Normal (Normal)
[2018-05-30] MEDS: Tenofovir 300 MG Tablet PO SCH (09:48)
[2018-05-30] MEDS: rifAXIMin 550 MG Tablet PO SCH ×2 (09:48→21:22)
[2018-05-30] MEDS: Furosemide 20 MG Tablet PO SCH (09:48)
[2018-05-30] MEDS: Spironolactone 50 MG Tablet PO SCH (09:48)
[2018-05-30] MEDS: Nadolol 20 MG Tablet PO SCH (09:48)
[2018-05-30] MEDS: Sodium Chloride 0.9% 2 ML Flush BID IV.FLUSH SCH ×4 (09:49→21:22)
[2018-05-30] MEDS: Ferrous Sulfate 325 MG Tablet PO SCH ×2 (12:09→17:30)
--- NOTE | 2018-05-30 12:18 | P.PNIM ---
Subjective Interval history: The patient wants to leave the hospital. He said that he would like to go to a [place] that is 1 or 2 hours away from here. He said he has been in the hospital for too long. He has been drinking a lot of fluids. Discussed with nursing. Physical Exam Vital signs: Vital Signs 05/29/18 12:00 05/29/18 16:00 05/29/18 20:00 Temperature 98.1 F 98.3 F 98.7 F Pulse Rate 62 62 60 Respiratory Rate 18 18 16 Blood Pressure 103/58 L 100/54 L 98/56 L Pulse Oximetry 97 98 95 05/30/18 00:00 05/30/18 08:00 Temperature 98.1 F 98.1 F Pulse Rate 69 64 Respiratory Rate 18 18 Blood Pressure 102/57 L 109/61 Pulse Oximetry 97 96 Intake & Output 05/29/18 05/30/18 05/30/18 18:59 06:59 18:59 Intake Total 600 / 600 Balance 600 / 600 Weight 66.3 kg Intake: Oral 600 / 600 Other: # Voids 350 Date of Last Bowel Movement 05/29/18 05/29/18 # Bowel Movements 1 Narrative: GENERAL: Chronically ill appearing. SKIN: Warm and dry. Jaundiced. CARDIOVASCULAR: Regular rate and rhythm. RESPIRATORY: No accessory muscle use. Clear to auscultation. Breath sounds equal bilaterally. GASTROINTESTINAL: Abdomen soft, non-tender, nondistended. MUSCULOSKELETAL: Extremities without clubbing, cyanosis, or edema. No obvious deformities. NEUROLOGICAL: Awake and alert x3. No obvious cranial nerve deficits. Generalized weakness, moving all 4 extremities normal speech. Results - Labs CBC & Chem 7: 05/30/18 05:17 05/30/18 05:17 Laboratory Results - last 24 hr 05/29/18 05/30/18 05/30/18 16:13 05:17 05:17 WBC 6.8 RBC 2.69 L Hgb 9.9 L Hct 28.1 L MCV 104.4 H MCH 36.9 H MCHC 35.4 RDW 19.7 H Plt Count 76 L MPV 9.3 Prelim Diff (Auto) Slide review pending Neut % (Auto) 68.1 Lymph % (Auto) 18.9 Crook % (Auto) 10.7 H Eos % (Auto) 1.9 Baso % (Auto) 0.4 Neut # (Auto) 4.6 Lymph # (Auto) 1.3 Crook # (Auto) 0.7 Eos # (Auto) 0.1 Baso # (Auto) 0.0 WBC Differential . Diff Scan Auto diff confirmed Differential Comment . Platelet Estimate Low L Platelet Morphology Normal Ovalocytes 1+ H Sodium 125 L Potassium 4.8 Chloride 90 L Carbon Dioxide 27.0 Anion Gap 8 BUN 13 Creatinine 1.22 Estimated GFR 61 L Random Glucose 87 Calcium 8.3 L Total Bilirubin 10.1 H AST 81 H ALT 52 Alkaline Phosphatase 166 H Ammonia 42 H Total Protein 6.8 Albumin 1.6 L - Procedures none Assessment and Plan - Assessment (1) Encephalopathy Code(s): G93.40 - Encephalopathy, unspecified Status: Acute (2) Liver cirrhosis Code(s): K74.60 - Unspecified cirrhosis of liver Status: Acute (3) Hep C w/o coma, chronic Code(s): B18.2 - Chronic viral hepatitis C Status: Chronic (4) Hepatitis B infection Code(s): B19.10 - Unspecified viral hepatitis B without hepatic coma Status: Acute - Plan This is a 58 y/o male with history of Hep B, Hep C, and liver cirrhosis admitted on 04/29 after being transferred from [facility] for staghorn renal calculus complicated by UTI. Urology deemed no surgical intervention needed but will need a PCNL in the future as an outpatient. Now pending placement. Nephrolithiasis with UTI -Per urology will need PCNL as an outpatient Reviewed U/A from [place] on 04/28 which showed + nitrite, + leukocytes, + bacteria and yeast, and final urine culture resulted on 05/01 showed no growth Urine culture from 04/30 done at [place] growing Shante glabrata, recent UA 05/07 - no growth in 48 hrs. S/p PO Diflucan treatment for total of 2 weeks. -Continue Roxicodone for prn pain, pain controlled Pancytopenia HIV negative -s/p multiple cryoprecipitate transfusions -2/2 liver disease and splenomegaly Heme/onc following, stable for dc. -Outpatient follow-up with hematology ETOH Liver cirrhosis/HCV/HBV S/p treatment with Harvoni and recently tenofovir was prescribed with diagnosis of hepatitis B. The patient was apparently not compliant. Previously worked up in [facility] for liver transplant 2017 but unfortunately was not a candidate due to social issues and lack of support. Last EGD and colonoscopy in November 2016, portal hypertensive gastropathy noted on EGD otherwise both exams were normal. -GI recommends follow-up as outpatient in clinic when discharged. Continue Lasix, lactulose, rifaximin, nadolol. -tenofovir per GI for hepatitis B. -Monitor CMP. Hyponatremia Likely hypervolemic. -1200 ml fluid restriction. -hold Aldactone, continue Lasix. -follow BMP. chronic Hepatic encephalopathy Ammonia has been elevated. -Continue Lactulose 4 times daily and Xifaxan -Slow to respond but otherwise appropriate. -Cognitive evaluation performed by Dr. Mac neuropsychiatry, patient does have medical decision capacity. He will need assistance upon discharge based on having mild cognitive disorder. Hypokalemia Continue KCl PO 20 mEq daily -Monitor electrolytes, replete as needed Left chest wall pain, likely costochondritis Reproducible with touch, worse with deep breathing -trop and EKG negative Continue Roxicodone as needed Generalized weakness Palliative care following/input appreciated -Continue physical therapy -Out of bed daily DVT prophylaxis: avoid chemical anticoagulation given coagulopathy and thrombocytopenia Discharge Planning: Case management assisting with placement (2) Liver cirrhosis Qualifiers: Hepatic cirrhosis type: other cirrhosis Qualified Code(s): K74.69 - Other cirrhosis of liver (4) Hepatitis B infection Qualifiers: Viral hepatitis chronicity: chronic
[2018-05-31 05:43] LABS: Calcium 8.4 mg/dL (8.5-10.1); Carbon Dioxide 26.7 meq/L (21.0-32.0); Potassium 5.1 meq/L (3.5-5.1)
[2018-05-31] MEDS: rifAXIMin 550 MG Tablet PO SCH ×2 (08:09→20:37)
[2018-05-31] MEDS: Sodium Chloride 0.9% 2 ML Flush BID IV.FLUSH SCH ×4 (08:09→20:37)
[2018-05-31] MEDS: Furosemide 20 MG Tablet PO SCH (08:10)
[2018-05-31] MEDS: Nadolol 20 MG Tablet PO SCH (08:10)
[2018-05-31] MEDS: Tenofovir 300 MG Tablet PO SCH (08:11)
--- NOTE | 2018-05-31 09:58 | P.PNIM ---
Subjective Interval history: The patient said that he has not been sleeping well at night. He said that telemarketers were calling his phone all night but they finally stopped. No other acute complaints. Discussed with nursing. Physical Exam Vital signs: Vital Signs 05/30/18 12:00 05/30/18 13:27 05/30/18 16:00 Temperature 97.6 F 98.0 F 97.9 F Pulse Rate 58 L 52 L 56 L Respiratory Rate 17 19 18 Blood Pressure 109/61 95/53 L 96/49 L Pulse Oximetry 97 97 97 05/30/18 20:00 05/31/18 00:00 05/31/18 08:00 Temperature 96.9 F L 97.9 F 98 F Pulse Rate 58 L 58 L 60 Respiratory Rate 16 16 17 Blood Pressure 82/53 L 84/50 L 85/52 L Pulse Oximetry 96 97 97 Intake & Output 05/30/18 05/31/18 05/31/18 18:59 06:59 18:59 Intake Total 540 / 540 180 / 180 Output Total 400 / 400 500 / 500 Balance 140 / 140 -320 / -320 Weight 66 kg Intake: Oral 540 / 540 180 / 180 Output: Urine 400 / 400 500 / 500 Other: # Bowel Movements 1 Narrative: GENERAL: Chronically ill appearing. SKIN: Warm and dry. Jaundiced. CARDIOVASCULAR: Regular rate and rhythm. RESPIRATORY: No accessory muscle use. Clear to auscultation. Breath sounds equal bilaterally. GASTROINTESTINAL: Abdomen soft, non-tender, nondistended. MUSCULOSKELETAL: Extremities without clubbing, cyanosis, or edema. No obvious deformities. NEUROLOGICAL: Awake and alert x3. No obvious cranial nerve deficits. Generalized weakness, moving all 4 extremities normal speech. Delayed processing. Results - Labs CBC & Chem 7: 05/30/18 05:17 05/31/18 05:03 Laboratory Results - last 24 hr 05/31/18 05:03 Sodium 125 L Potassium 5.1 Chloride 92 L Carbon Dioxide 26.7 Anion Gap 6 BUN 15 Creatinine 1.12 Estimated GFR 68 L Random Glucose 68 L Calcium 8.4 L Assessment and Plan - Assessment (1) Encephalopathy Code(s): G93.40 - Encephalopathy, unspecified Status: Acute (2) Liver cirrhosis Code(s): K74.60 - Unspecified cirrhosis of liver Status: Acute (3) Hep C w/o coma, chronic Code(s): B18.2 - Chronic viral hepatitis C Status: Chronic (4) Hepatitis B infection Code(s): B19.10 - Unspecified viral hepatitis B without hepatic coma Status: Acute - Plan This is a 58 y/o male with history of Hep B, Hep C, and liver cirrhosis admitted on 04/29 after being transferred from for [facility] renal calculus complicated by UTI. Urology deemed no surgical intervention needed but will need a PCNL in the future as an outpatient. Now pending placement. Nephrolithiasis with UTI -Per urology will need PCNL as an outpatient Reviewed U/A from [place] on 04/28 which showed + nitrite, + leukocytes, + bacteria and yeast, and final urine culture resulted on 05/01 showed no growth Urine culture from 04/30 done at [place] growing Shante glabrata, recent UA 05/07 - no growth in 48 hrs. S/p PO Diflucan treatment for total of 2 weeks. -Continue Roxicodone for pain as needed. Pancytopenia HIV negative -s/p multiple cryoprecipitate transfusions -2/2 liver disease and splenomegaly Heme/onc following, stable for dc. -Outpatient follow-up with hematology ETOH Liver cirrhosis/HCV/HBV S/p treatment with Harvoni and recently tenofovir was prescribed with diagnosis of hepatitis B. The patient was apparently not compliant. Previously worked up in [facility] for liver transplant 2016 but unfortunately was not a candidate due to social issues and lack of support. Last EGD and colonoscopy in November 2016, portal hypertensive gastropathy noted on EGD otherwise both exams were normal. -GI recommends follow-up as outpatient in clinic when discharged. Continue Lasix, lactulose, rifaximin, nadolol. -tenofovir per GI for hepatitis B. -Monitor CMP. Hyponatremia Likely hypervolemic. -1200 ml fluid restriction. -hold Aldactone, continue Lasix. -follow BMP. Stable at 125. Chronic hepatic encephalopathy Ammonia has been elevated. -Continue Xifaxan. Increase lactulose and recheck ammonia level 05/31. -Slow to respond but otherwise appropriate. -Cognitive evaluation performed by Dr. Mac neuropsychiatry, patient does have medical decision capacity. He will need assistance upon discharge based on having mild cognitive disorder. Generalized weakness Palliative care following/input appreciated -Continue physical therapy -Out of bed daily DVT prophylaxis: avoid chemical anticoagulation given coagulopathy and thrombocytopenia Discharge Planning: Case management assisting with placement (2) Liver cirrhosis Qualifiers: Hepatic cirrhosis type: other cirrhosis Qualified Code(s): K74.69 - Other cirrhosis of liver (4) Hepatitis B infection Qualifiers: Viral hepatitis chronicity: chronic
[2018-05-31] MEDS: Ferrous Sulfate 325 MG Tablet PO SCH ×2 (12:17→17:18)
[2018-05-31] MEDS: Melatonin 5 MG Tablet PO PRN (20:44)
[2018-06-01] MEDS: rifAXIMin 550 MG Tablet PO SCH ×2 (08:28→21:23)
[2018-06-01] MEDS: Furosemide 20 MG Tablet PO SCH (08:28)
[2018-06-01] MEDS: Tenofovir 300 MG Tablet PO SCH (08:28)
[2018-06-01] MEDS: Nadolol 20 MG Tablet PO SCH (08:28)
[2018-06-01] MEDS: Sodium Chloride 0.9% 2 ML Flush BID IV.FLUSH SCH ×4 (08:29→21:24)
[2018-06-01 10:48] LABS: Calcium 8.6 mg/dL (8.5-10.1); Carbon Dioxide 25.2 meq/L (21.0-32.0)
[2018-06-01 11:03] LABS: Potassium 5.1 meq/L (3.5-5.1)
[2018-06-01] MEDS: Ferrous Sulfate 325 MG Tablet PO SCH ×2 (11:30→16:05)
--- NOTE | 2018-06-01 11:43 | P.PNIM ---
Subjective Interval history: The patient had no acute complaints. He said he still wanted to leave. He denied any pain or shortness of breath. Discussed with nursing. Physical Exam Vital signs: Vital Signs 05/31/18 12:00 05/31/18 16:00 05/31/18 20:00 Temperature 98 F 98.2 F 97.9 F Pulse Rate 58 L 52 L 60 Respiratory Rate 17 17 18 Blood Pressure 92/46 L 106/53 L 99/56 L Pulse Oximetry 95 96 99 06/01/18 00:00 06/01/18 08:00 Temperature 98.1 F 98.1 F Pulse Rate 60 62 Respiratory Rate 18 14 Blood Pressure 101/59 L 85/51 L Pulse Oximetry 98 97 Intake & Output 05/31/18 06/01/18 06/01/18 18:59 06:59 18:59 Intake Total 236 / 236 Output Total 275 / 275 Balance 236 / 236 -275 / -275 Weight 63.9 kg Intake: Oral 236 / 236 Output: Urine 275 / 275 Other: # Voids 2 Date of Last Bowel Movement 05/31/18 05/31/18 # Bowel Movements 3 Narrative: GENERAL: Chronically ill appearing. SKIN: Warm and dry. Jaundiced. CARDIOVASCULAR: Regular rate and rhythm. RESPIRATORY: No accessory muscle use. Clear to auscultation. Breath sounds equal bilaterally. GASTROINTESTINAL: Abdomen soft, non-tender, nondistended. MUSCULOSKELETAL: Extremities without clubbing, cyanosis, or edema. No obvious deformities. NEUROLOGICAL: Awake and alert x3. No obvious cranial nerve deficits. Generalized weakness, moving all 4 extremities normal speech. Delayed processing. Results - Labs CBC & Chem 7: 05/30/18 05:17 06/01/18 08:19 Laboratory Results - last 24 hr 05/31/18 06/01/18 12:45 08:19 Sodium 124 L* Potassium 5.1 Chloride 91 L Carbon Dioxide 25.2 Anion Gap 8 BUN 22 H Creatinine 1.20 Estimated GFR 63 L Random Glucose 87 Calcium 8.6 Ammonia 43 H Assessment and Plan - Assessment (1) Encephalopathy Code(s): G93.40 - Encephalopathy, unspecified Status: Acute (2) Liver cirrhosis Code(s): K74.60 - Unspecified cirrhosis of liver Status: Acute (3) Hep C w/o coma, chronic Code(s): B18.2 - Chronic viral hepatitis C Status: Chronic (4) Hepatitis B infection Code(s): B19.10 - Unspecified viral hepatitis B without hepatic coma Status: Acute - Plan This is a 58 y/o male with history of Hep B, Hep C, and liver cirrhosis admitted on 04/29 after being transferred from [facility] for [facility] renal calculus complicated by UTI. Urology deemed no surgical intervention needed but will need a PCNL in the future as an outpatient. Now pending placement. Nephrolithiasis with UTI -Per urology will need PCNL as an outpatient Reviewed U/A from [place] on 04/28 which showed + nitrite, + leukocytes, + bacteria and yeast, and final urine culture resulted on 05/01 showed no growth Urine culture from 04/30 done at [place] growing Shante glabrata, recent UA 05/07 - no growth in 48 hrs. S/p PO Diflucan treatment for total of 2 weeks. -Continue Roxicodone for pain as needed. Pancytopenia HIV negative -s/p multiple cryoprecipitate transfusions -2/2 liver disease and splenomegaly Heme/onc following, stable for dc. -Outpatient follow-up with hematology ETOH Liver cirrhosis/HCV/HBV S/p treatment with Harvoni and recently tenofovir was prescribed with diagnosis of hepatitis B. The patient was apparently not compliant. Previously worked up in [facility] for liver transplant 2016 but unfortunately was not a candidate due to social issues and lack of support. Last EGD and colonoscopy in November 2016, portal hypertensive gastropathy noted on EGD otherwise both exams were normal. -GI recommends follow-up as outpatient in clinic when discharged. Continue Lasix, lactulose, rifaximin, nadolol. -tenofovir per GI for hepatitis B. -Monitor CMP. Hyponatremia Likely hypervolemic. -1000 ml fluid restriction. -hold Aldactone, increase Lasix. -follow BMP. Chronic hepatic encephalopathy Ammonia has been elevated. -Continue Xifaxan. Increased lactulose. -Slow to respond but otherwise appropriate. -Cognitive evaluation performed by Dr. Mac neuropsychiatry, patient does have medical decision capacity. He will need assistance upon discharge based on having mild cognitive disorder. Generalized weakness Palliative care following/input appreciated -Continue physical therapy -Out of bed daily DVT prophylaxis: avoid chemical anticoagulation given coagulopathy and thrombocytopenia Discharge Planning: Case management assisting with placement (2) Liver cirrhosis Qualifiers: Hepatic cirrhosis type: other cirrhosis Qualified Code(s): K74.69 - Other cirrhosis of liver (4) Hepatitis B infection Qualifiers: Viral hepatitis chronicity: chronic
[2018-06-02 07:46] LABS: Calcium 8.9 mg/dL (8.5-10.1); Carbon Dioxide 27.3 meq/L (21.0-32.0); Potassium 5.5 meq/L (3.5-5.1)
[2018-06-02] MEDS ORDERED: Furosemide 40 MG Tablet PO SCH (09:00)
[2018-06-02] MEDS: rifAXIMin 550 MG Tablet PO SCH ×2 (09:30→22:32)
[2018-06-02] MEDS: Nadolol 20 MG Tablet PO SCH (09:30)
[2018-06-02] MEDS: Tenofovir 300 MG Tablet PO SCH (09:30)
[2018-06-02] MEDS: Sodium Chloride 0.9% 2 ML Flush BID IV.FLUSH SCH ×3 (09:30→22:29)
[2018-06-02] MEDS ORDERED: Sodium Polystyrene Sulfonate/Sorbitol Liq 15 GM/60 ML UDC PO ONE (11:20)
[2018-06-02] MEDS ORDERED: Albumin Human 25% Inj 100 ML IV.SIG ONE (11:34)
--- NOTE | 2018-06-02 11:42 | P.PNIM ---
Subjective Interval history: The patient was resting in bed. He said he was having painful urination and small amounts of urine. He said that he wants to leave the hospital. No other acute complaints. Physical Exam Vital signs: Vital Signs 06/01/18 12:00 06/01/18 16:00 06/01/18 20:00 Temperature 97.8 F 97.9 F 98.1 F Pulse Rate 58 L 66 63 Respiratory Rate 14 14 16 Blood Pressure 99/51 L 93/52 L 95/53 L Pulse Oximetry 98 96 99 06/02/18 00:00 06/02/18 08:00 Temperature 97.6 F 98.1 F Pulse Rate 69 65 Respiratory Rate 17 16 Blood Pressure 94/55 L 97/54 L Pulse Oximetry 99 96 Intake & Output 06/01/18 06/02/18 06/02/18 18:59 06:59 18:59 Intake Total 480 / 480 240 / 240 Output Total 350 / 350 Balance 130 / 130 240 / 240 Weight 63.9 kg Intake: Oral 480 / 480 240 / 240 Output: Urine 350 / 350 Other: # Voids 2 Date of Last Bowel Movement 05/31/18 06/01/18 Narrative: GENERAL: Chronically ill appearing. SKIN: Warm and dry. Jaundiced. CARDIOVASCULAR: Regular rate and rhythm. RESPIRATORY: No accessory muscle use. Clear to auscultation. Breath sounds equal bilaterally. GASTROINTESTINAL: Abdomen soft, non-tender, nondistended. MUSCULOSKELETAL: Extremities without clubbing, cyanosis, or edema. No obvious deformities. NEUROLOGICAL: Awake and alert x3. No obvious cranial nerve deficits. Generalized weakness, moving all 4 extremities normal speech. Delayed processing. PSYCH: Flat affect. Results - Labs CBC & Chem 7: 05/30/18 05:17 06/02/18 06:35 Laboratory Results - last 24 hr 06/02/18 06:35 Sodium 125 L Potassium 5.5 H Chloride 91 L Carbon Dioxide 27.3 Anion Gap 7 BUN 25 H Creatinine 1.38 H Estimated GFR 53 L Random Glucose 65 L Calcium 8.9 Assessment and Plan - Assessment (1) Encephalopathy Code(s): G93.40 - Encephalopathy, unspecified Status: Acute (2) Liver cirrhosis Code(s): K74.60 - Unspecified cirrhosis of liver Status: Acute (3) Hep C w/o coma, chronic Code(s): B18.2 - Chronic viral hepatitis C Status: Chronic (4) Hepatitis B infection Code(s): B19.10 - Unspecified viral hepatitis B without hepatic coma Status: Acute - Plan This is a 58 y/o male with history of Hep B, Hep C, and liver cirrhosis admitted on 04/29 after being transferred from [facility] for staghorn renal calculus complicated by UTI. Urology deemed no surgical intervention needed but will need a PCNL in the future as an outpatient. Now pending placement. Nephrolithiasis with UTI -Per urology will need PCNL as an outpatient Reviewed U/A from [place] on 04/28 which showed + nitrite, + leukocytes, + bacteria and yeast, and final urine culture resulted on 05/01 showed no growth Urine culture from 04/30 done at [place] growing Shante glabrata, recent UA 05/07 - no growth in 48 hrs. S/p PO Diflucan treatment for total of 2 weeks. -Continue Roxicodone for pain as needed. Pancytopenia HIV negative -s/p multiple cryoprecipitate transfusions -2/2 liver disease and splenomegaly Heme/onc following, stable for dc. -Outpatient follow-up with hematology ETOH Liver cirrhosis/HCV/HBV S/p treatment with Harvoni and recently tenofovir was prescribed with diagnosis of hepatitis B. The patient was apparently not compliant. Previously worked up in [facility] for liver transplant 2016 but unfortunately was not a candidate due to social issues and lack of support. Last EGD and colonoscopy in November 2016, portal hypertensive gastropathy noted on EGD otherwise both exams were normal. -GI recommends follow-up as outpatient in clinic when discharged. Continue lactulose, rifaximin, nadolol. -tenofovir per GI for hepatitis B. -Monitor CMP. Hyponatremia Likely hypervolemic in setting of liver failure. -fluid restriction. -follow BMP. Acute renal failure May be s/t diuresis, dehydration or hepatorenal syndrome. -check UA, calculate FENa. -NS bolus 250 ml x 1. -Albumin IV. -hold diuretics. -nephrology consult if no improvement. Chronic hepatic encephalopathy Ammonia has been elevated. -Continue Xifaxan. Increased lactulose. -Slow to respond but otherwise appropriate. -Cognitive evaluation performed by Dr. Mac neuropsychiatry, patient does have medical decision capacity. He will need assistance upon discharge based on having mild cognitive disorder. Generalized weakness Palliative care following/input appreciated -Continue physical therapy -Out of bed daily DVT prophylaxis: avoid chemical anticoagulation given coagulopathy and thrombocytopenia Discharge Planning: Case management assisting with placement (2) Liver cirrhosis Qualifiers: Hepatic cirrhosis type: other cirrhosis Qualified Code(s): K74.69 - Other cirrhosis of liver (4) Hepatitis B infection Qualifiers: Viral hepatitis chronicity: chronic
[2018-06-02] MEDS ORDERED: Sodium Chlor 0.9% Inj 250 ML IV.SIG SCH (12:00)
[2018-06-02] MEDS: Ferrous Sulfate 325 MG Tablet PO SCH ×2 (12:34→17:18)
[2018-06-03] MEDS: Sodium Chloride 0.9% 2 ML Flush BID IV.FLUSH SCH ×5 (00:32→21:06)
[2018-06-03 08:21] LABS: Calcium 8.4 mg/dL (8.5-10.1); Carbon Dioxide 29.4 meq/L (21.0-32.0); Potassium 3.7 meq/L (3.5-5.1)
[2018-06-03] MEDS: Nadolol 20 MG Tablet PO SCH (09:16)
[2018-06-03] MEDS: rifAXIMin 550 MG Tablet PO SCH ×2 (09:16→21:03)
[2018-06-03] MEDS: Tenofovir 300 MG Tablet PO SCH (09:16)
--- NOTE | 2018-06-03 11:57 | P.PNIM ---
Subjective Interval history: The patient's was resting in bed. He said he has been hallucinating and that has been going on for the past 2 or 3 days. He requested a warm compress for his right eye. Discussed with nursing. Physical Exam Vital signs: Vital Signs 06/02/18 12:00 06/02/18 16:00 06/02/18 20:00 Temperature 98.0 F 97.8 F 98.2 F Pulse Rate 60 64 69 Respiratory Rate 16 18 16 Blood Pressure 85/50 L 98/51 L 106/56 L Pulse Oximetry 97 98 100 06/03/18 00:00 06/03/18 08:00 Temperature 98.4 F 98.9 F Pulse Rate 71 61 Respiratory Rate 16 17 Blood Pressure 100/59 L 96/51 L Pulse Oximetry 97 98 Intake & Output 06/02/18 06/03/18 06/03/18 18:59 06:59 18:59 Intake Total 350 / 350 400 / 400 Output Total 300 / 300 Balance 350 / 350 100 / 100 Weight 63.9 kg Intake: IV 350 / 350 Flexbumin 25% Inj 100 ML @ 60 100 / 100 mls/hr IV.SIG ONCE ONE Rx#: [id number] NS Inj 250 ML @ Wide Open IV. 250 / 250 SIG BOLUS NIRAJ Rx#:[id number] Oral 400 / 400 Output: Urine 300 / 300 Other: Date of Last Bowel Movement 06/02/18 06/02/18 # Bowel Movements 3 Narrative: GENERAL: Chronically ill appearing. SKIN: Warm and dry. Jaundiced. HEENT: Stye on right eye. CARDIOVASCULAR: Regular rate and rhythm. RESPIRATORY: No accessory muscle use. Clear to auscultation. Breath sounds equal bilaterally. GASTROINTESTINAL: Abdomen soft, non-tender, nondistended. MUSCULOSKELETAL: Extremities without clubbing, cyanosis, or edema. No obvious deformities. NEUROLOGICAL: Awake and alert x3. No obvious cranial nerve deficits. Generalized weakness, moving all 4 extremities normal speech. Delayed processing. PSYCH: Flat affect. Results - Labs CBC & Chem 7: 05/30/18 05:17 06/03/18 06:46 Laboratory Results - last 24 hr 06/03/18 06:46 Sodium 127 L Potassium 3.7 D Chloride 91 L Carbon Dioxide 29.4 Anion Gap 7 BUN 24 H Creatinine 1.18 Estimated GFR 64 L Random Glucose 58 L Calcium 8.4 L Assessment and Plan - Assessment (1) Encephalopathy Code(s): G93.40 - Encephalopathy, unspecified Status: Acute (2) Liver cirrhosis Code(s): K74.60 - Unspecified cirrhosis of liver Status: Acute (3) Hep C w/o coma, chronic Code(s): B18.2 - Chronic viral hepatitis C Status: Chronic (4) Hepatitis B infection Code(s): B19.10 - Unspecified viral hepatitis B without hepatic coma Status: Acute - Plan This is a 58 y/o male with history of Hep B, Hep C, and liver cirrhosis admitted on 04/29 after being transferred from [facility] for stag[place] renal calculus complicated by UTI. Urology deemed no surgical intervention needed but will need a PCNL in the future as an outpatient. Now pending placement. Nephrolithiasis with UTI -Per urology will need PCNL as an outpatient Reviewed U/A from [place] on 04/28 which showed + nitrite, + leukocytes, + bacteria and yeast, and final urine culture resulted on 05/01 showed no growth Urine culture from 04/30 done at [place] growing Shante glabrata, recent UA 05/07 - no growth in 48 hrs. S/p PO Diflucan treatment for total of 2 weeks. -Continue Roxicodone for pain as needed. Pancytopenia HIV negative -s/p multiple cryoprecipitate transfusions -2/2 liver disease and splenomegaly Heme/onc following, stable for dc. -Outpatient follow-up with hematology ETOH Liver cirrhosis/HCV/HBV S/p treatment with Harvoni and recently tenofovir was prescribed with diagnosis of hepatitis B. The patient was apparently not compliant. Previously worked up in [facility] for liver transplant 2016 but unfortunately was not a candidate due to social issues and lack of support. Last EGD and colonoscopy in November 2016, portal hypertensive gastropathy noted on EGD otherwise both exams were normal. -GI recommends follow-up as outpatient in clinic when discharged. Continue lactulose, rifaximin, nadolol. -tenofovir per GI for hepatitis B. -Monitor CMP. Hyponatremia Likely hypervolemic in setting of liver failure. -follow BMP. Acute renal failure May be s/t diuresis, dehydration or hepatorenal syndrome. -check UA, calculate FENa. -D5NS. -Albumin IV. -hold diuretics. Hypoglycemia S/t poor PO intake. -start D5NS and monitor. -ADAT. Add Ensure. -dietary consult. Chronic hepatic encephalopathy Ammonia has been elevated. -Continue Xifaxan. Increased lactulose. -Slow to respond but otherwise appropriate. -Cognitive evaluation performed by Dr. Mac neuropsychiatry, patient does have medical decision capacity. He will need assistance upon discharge based on having mild cognitive disorder. Generalized weakness Palliative care following/input appreciated -Continue physical therapy -Out of bed daily DVT prophylaxis: avoid chemical anticoagulation given coagulopathy and thrombocytopenia Discharge Planning: Case management assisting with placement (2) Liver cirrhosis Qualifiers: Hepatic cirrhosis type: other cirrhosis Qualified Code(s): K74.69 - Other cirrhosis of liver (4) Hepatitis B infection Qualifiers: Viral hepatitis chronicity: chronic
[2018-06-03] MEDS ORDERED: Dextrose 5%/NaCl 0.9% Inj 1,000 ML IV.CONT SCH (12:00)
[2018-06-03] MEDS: Ferrous Sulfate 325 MG Tablet PO SCH ×2 (12:32→16:43)
--- NOTE | 2018-06-03 16:49 | P.PNPAL ---
Reason for Visit Reason for visit: a. To assist with evaluation and management of symptoms including: Encephalopathy, pain b. To assist medical decision maker(s) with: better understanding of current medical conditions; weighing benefits/burdens of medical treatment options; making medical treatment decisions. Subjective Subjective/Interval History: This 58-year-old patient who was transferred here to [facility] from [facility] in [place] on 04/29/18. There he had gone for evaluation of right-sided abdominal pain on 04/28. He also presented with constipation and dark urine. Abdominal CT indicative of portal hypertension changes, cirrhotic liver, and 3.5 cm staghorn calculus right kidney with possible mild duodenitis and cholelithiasis. + pancytopenia, + UTI - started on zosyn IV. He was transferred to [place] due to staghorn calculus w concomitant infection, and requiring a urologist evaluation. also noted to have chronic hep C, cirrhosis, stable. Pt seen today to follow up on comfort, goals with pt and/or decision maker. Call from brother Arley prior to my arrival on unit requesting update. He also had questions about pt phone amusement machine mechanic--indicates that no one has had a matching charge her for the patient's phone, but that the patient would like to try to reach his father to try to get discharged to stay with him however he does not have his number without access to his phone. Brother would like to purchase a amusement machine mechanic and possibly have it delivered to the patient's room so that he can charge his phone and possibly reach additional family who may help him in terms of providing a home to discharge 2. Provided him update on medical conditions based on review of electronic record advised I would call back later once I had actually seen the patient. Patient later seen on unit he is very lethargic today. Indicates he is tired. He does arouse somewhat and for the most part is oriented though falls back asleep during my questions. He denies any discomfort at time of my visit. Says his appetite is good. Says he is trying to get a hold of his dad so he can try to get out of the hospital. Discussed at length with case management I have requested they submit approval to purchase a phone amusement machine mechanic so that the patient may charge his phone and possibly reach additional family members who may provide him residents for discharge. . Patient CBC stable 05/30. Chemistry essentially unchanged hyponatremic 124. Ammonia elevated at 43 though down from prior levels, continues to receive rifaximin, lactulose. albumin low 1.6, good PO intake, spout liner consult pending. s/p Cognitive evaluation per by Dr. Mac neuropsychiatry: patient does have medical decision capacity. He will need assistance upon discharge based on having mild cognitive disorder. He does not complain of pain during my exam the prn oxycodone 5mg x1 today, x2 yesterday. Generally appears to be using 2-3x per day, with good effectiveness per documentation. Advance Directives Advance Directives Date on File: 05/07/18 Health Care Surrogate Name and Number: Names brother Arley Valadez (brett) Objective Vital Signs: Vital Signs 06/02/18 20:00 06/03/18 00:00 06/03/18 08:00 Temperature 98.2 F 98.4 F 98.9 F Pulse Rate 69 71 61 Respiratory Rate 16 16 17 Blood Pressure 106/56 L 100/59 L 96/51 L Pulse Oximetry 100 97 98 06/03/18 12:00 Temperature 98.2 F Pulse Rate 69 Respiratory Rate 17 Blood Pressure 99/57 L Pulse Oximetry 99 Intake & Output 06/02/18 06/03/18 06/03/18 18:59 06:59 18:59 Intake Total 350 / 350 400 / 400 Output Total 300 / 300 Balance 350 / 350 100 / 100 Weight 63.9 kg Intake: IV 350 / 350 Flexbumin 25% Inj 100 ML @ 60 100 / 100 mls/hr IV.SIG ONCE ONE Rx#: [id number] NS Inj 250 ML @ Wide Open IV. 250 / 250 SIG BOLUS NIRAJ Rx#:[id number] Oral 400 / 400 Output: Urine 300 / 300 Other: Date of Last Bowel Movement 06/02/18 06/02/18 # Bowel Movements 3 Physical Exam: CONSTITUTIONAL/GENERAL: This is a chronically ill appearing male, sleepy, oriented. TUBES/LINES/DRAINS: PIV uE. SKIN: No rashes, or lesions. Ecchymoses Lt anterior shoulder. Mild jaundice. Skin warm/dry. EYES: Pupils equal and round and reactive. Extraocular motions intact. + scleral icterus. No injection or drainage. Fundi not examined. ENT: Hearing grossly normal. Nose without bleeding or purulent drainage. Throat without visible erythema, exudates, masses, or lesions.MM dry CARDIOVASCULAR: Regular rate and rhythm , 3/6 systolic ejection murmur . No JVD. Peripheral pulses symmetric. Trace pedal edema. RESPIRATORY/CHEST: Symmetric, unlabored respirations. on room air. Clear to auscultation. Breath sounds equal bilaterally. GASTROINTESTINAL: Abdomen soft, mildly tender, +distended/slight splenomegaly . No guarding. Bowel sounds present. MUSCULOSKELETAL: Extremities without clubbing, cyanosis. No joint tenderness or effusion noted. No calf tenderness. chronic vascular discoloration visible to bilateral lower legs, trace edema Lower legs NEUROLOGICAL: sleepy though mostly oriented upon arousal. cooperative, follows some commands. Moves all 4 extremities, able to reposition self in bed. PSYCHIATRIC: somewhat flat/ lethargic . Diagnostic Tests Laboratory: Laboratory Results - last 72 hr 06/01/18 06/02/18 06/03/18 08:19 06:35 06:46 Sodium 124 L* 125 L 127 L Potassium 5.1 5.5 H 3.7 D Chloride 91 L 91 L 91 L Carbon Dioxide 25.2 27.3 29.4 Anion Gap 8 7 7 BUN 22 H 25 H 24 H Creatinine 1.20 1.38 H 1.18 Estimated GFR 63 L 53 L 64 L Random Glucose 87 65 L 58 L Calcium 8.6 8.9 8.4 L Result Diagrams: 05/30/18 05:17 06/03/18 06:46 Assessment and Plan - Disease Oriented Problem List (1) Hepatitis B infection (2) Staghorn renal calculus (3) Acute UTI (4) Liver cirrhosis (5) Hep C w/o coma, chronic Pertinent Non-Medical Issues: Psychosocial: Patient indicates originally from [place]. Did live in [place] for about a year but has since been in [place] for several years. 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 Has 7 siblings though does not remain in close communication with them. Spiritual: Yarsani, no particular affiliation. Requests bus driver visit, bus driver notified. Legal:Patient today mildly encephalopathic. Ammonia level elevated. Partially oriented. Appears capacitated enough to participate some in decision making but does not have full insight. He is able to designate healthcare surrogate names his brother Arley Valadez as someone he would trust to make decisions in an emergency. Would recommend shared decision making at this point given his fluctuating mental status. Ethical issues impacting care: No ethical issues identified Important Contacts: Brother Arley Valadez (Brett) in [place]- new #[phone] XXX OLD # XXX [phone] Brother ARLEY in [facility] [phone] . Prognosis: Patient is a poor historian, full medical history not readily available. Appears he has had some component of chronic liver disease, now with superimposed acute liver dysfunction. Hepatitis B, hepatitis C positive. Initiated on treatment here. Encephalopathic. Bilirubin trending up. Possible current acute disease process may be stable with ongoing aggressive treatment w antiviral, though he remains high risk for ongoing if liver disease does not stabilize or respond to treatment. At that point may be appropriate for hospice. On the other hand if goals were comfort oriented and did not desire further aggressive interventions then would also be hospice appropriate now. Code Status: Full Code Plan: Legal decision maker:Patient today mildly encephalopathic. Ammonia level elevated. Partially oriented. Appears capacitated enough to participate some in decision making but does not have full insight. He is able to designate healthcare surrogate names his brother Arley Valadez as someone he would trust to make decisions in an emergency. Would recommend shared decision making at this point given his fluctuating mental status. Goals: Patient goals stated to continue treatment he "wants to live ". He has limited insight and understanding at this time. Designated his brother Arley Landeros as healthcare surrogate. I have spoken at length with this brother today. He is in agreement to serve as HCS. Update and review of conditions provided today to brother. He wishes to talk to other family members, process information. No decisions made today. He plans to talk further with palliative tomorrow 05/12/18. He is unable to care for patient himself he lives out of state. He feels patient will likely need placement. Patient just moved here from [place] possibly in March at that time he had Medicaid coverage in [place] . 06/03/18 pt mental status improving. able to participate more in decision making per neuropsych. Discharge planning-patient does not have home to discharge to yet at this point. He wants to try to reach his father to possibly take a bus to stay with him upon discharge however he cannot obtain his number due to his cell phone being . His phone does not match with any Charg[employer] of staff members who have attempted to try to assist with charging. review of phone model today with case management request they investigate possibly ordering a charge in order to facilitate patient communicating with other family members which may aid in his placement and care going forward. VM left for brother as well w phone info. CODE STATUS: Full code SYMPTOMS: --Pain-has had some ongoing pain to right flank/abdomen indicates this was new onset at time of presentation to [facility]. He does endorse good relief with use of prn--indicates he had not previously been on any chronic opiates for chronic pain syndromes. Has been using oxycodone 5 mg every 4 as needed, averaging 2-3x daily, effective . Continue to monitor requirements/effectiveness. Cautious up titration given concern for lethargy, mental status w encephalopathy --Encephalopathy-patient with fluctuating mental status, hepatitis, bilirubin trending up. Ammonia level down to 96 though remains elevated. On lactulose, rifaximin . Oriented though forgetful, Possible this may improve if liver functions improved. Bilirubin 10.1. ammonia 43 . Transaminases remain slightly elevated. -- n/v-intermittent, has prn zofran available. Monitor requirements/ effectiveness. Palliative care will continue to follow during hospital course as condition evolves, to assist patient/decision-maker with understanding of medical conditions, weighing benefits/burdens of treatment options, for clarification of goals of treatment. Additionally will assist with any symptoms of palliative concern Attestation Attestation: To help prompt me to consider important information that might be impacting today's encounter and assessment, information from prior notes written by myself or my colleagues may have been "brought forward" into today's note. My signature on this note, however, is an attestation that I personally performed the exam, history, and/or decision-making noted today, and, unless otherwise indicated, the interactions with patient, family, and staff as well as the review of records all occurred today. I also attest that the listed assessment and stated plan reflect my best clinical judgment today based on the combination of historical information, prior notes, and today's exam/ interactions. When time spent is documented, it refers only to time spent today by the signer, or if indicated, combined time spent today by collaborating physician/nurse practitioner.
[2018-06-03] MEDS: Melatonin 5 MG Tablet PO PRN (21:04)
[2018-06-04] MEDS: Tenofovir 300 MG Tablet PO SCH (09:25)
[2018-06-04] MEDS: rifAXIMin 550 MG Tablet PO SCH ×2 (09:26→21:39)
[2018-06-04] MEDS: Sodium Chloride 0.9% 2 ML Flush BID IV.FLUSH SCH ×4 (09:27→21:39)
[2018-06-04] MEDS: Nadolol 20 MG Tablet PO SCH (09:27)
[2018-06-04] MEDS: Ferrous Sulfate 325 MG Tablet PO SCH ×2 (13:08→18:11)
[2018-06-04 15:31] LABS: Carbon Dioxide 27.3 meq/L (21.0-32.0); Potassium 3.3 meq/L (3.5-5.1)
[2018-06-04] MEDS ORDERED: Potassium Chloride 25 MEQ Effervescent Tablet PO ONE (16:01)
--- NOTE | 2018-06-04 16:07 | P.PNIM ---
Subjective Interval history: The patient was resting. He said he was depressed. He wanted to go outside. Discussed with nursing. Physical Exam Vital signs: Vital Signs 06/03/18 20:00 06/04/18 00:00 06/04/18 03:36 Temperature 97.9 F 97.7 F Pulse Rate 65 70 Respiratory Rate 17 18 18 Blood Pressure 115/57 L 102/54 L Pulse Oximetry 98 96 06/04/18 08:00 06/04/18 12:00 Temperature 98.2 F 98.1 F Pulse Rate 69 60 Respiratory Rate 14 15 Blood Pressure 95/50 L 89/54 L Pulse Oximetry 97 98 Intake & Output 06/03/18 06/04/18 06/04/18 18:59 06:59 18:59 Intake Total 480 / 480 Output Total 500 / 500 400 / 400 Balance -20 / -20 -400 / -400 Weight 61.5 kg Intake: Oral 480 / 480 Output: Urine 500 / 500 400 / 400 Other: Date of Last Bowel Movement 06/02/18 06/03/18 Narrative: GENERAL: Chronically ill appearing. SKIN: Warm and dry. Jaundiced. HEENT: Stye on right eye. CARDIOVASCULAR: Regular rate and rhythm. RESPIRATORY: No accessory muscle use. Clear to auscultation. Breath sounds equal bilaterally. GASTROINTESTINAL: Abdomen soft, non-tender, nondistended. MUSCULOSKELETAL: Extremities without clubbing, cyanosis, or edema. No obvious deformities. NEUROLOGICAL: Awake and alert x3. No obvious cranial nerve deficits. Generalized weakness, moving all 4 extremities normal speech. Delayed processing. PSYCH: Flat affect. Results - Labs CBC & Chem 7: 05/30/18 05:17 06/04/18 14:46 Laboratory Results - last 24 hr 06/04/18 14:46 Sodium 131 L Potassium 3.3 L Chloride 94 L Carbon Dioxide 27.3 Anion Gap 10 BUN 16 Creatinine 1.10 Estimated GFR 69 L Random Glucose 128 H Calcium 8.0 L Assessment and Plan - Assessment (1) Encephalopathy Code(s): G93.40 - Encephalopathy, unspecified Status: Acute (2) Liver cirrhosis Code(s): K74.60 - Unspecified cirrhosis of liver Status: Acute (3) Hep C w/o coma, chronic Code(s): B18.2 - Chronic viral hepatitis C Status: Chronic (4) Hepatitis B infection Code(s): B19.10 - Unspecified viral hepatitis B without hepatic coma Status: Acute - Plan This is a 58 y/o male with history of Hep B, Hep C, and liver cirrhosis admitted on 04/29 after being transferred from [facility] for staghorn renal calculus complicated by UTI. Urology deemed no surgical intervention needed but will need a PCNL in the future as an outpatient. Now pending placement. Nephrolithiasis with UTI -Per urology will need PCNL as an outpatient Reviewed U/A from [place] on 04/28 which showed + nitrite, + leukocytes, + bacteria and yeast, and final urine culture resulted on 05/01 showed no growth Urine culture from 04/30 done at [place] growing Shante glabrata, recent UA 05/07 - no growth in 48 hrs. S/p PO Diflucan treatment for total of 2 weeks. -Continue Roxicodone for pain as needed. Pancytopenia HIV negative -s/p multiple cryoprecipitate transfusions -2/2 liver disease and splenomegaly Heme/onc following, stable for dc. -Outpatient follow-up with hematology ETOH Liver cirrhosis/HCV/HBV S/p treatment with Harvoni and recently tenofovir was prescribed with diagnosis of hepatitis B. The patient was apparently not compliant. Previously worked up in [facility] for liver transplant 2016 but unfortunately was not a candidate due to social issues and lack of support. Last EGD and colonoscopy in November 2016, portal hypertensive gastropathy noted on EGD otherwise both exams were normal. -GI recommends follow-up as outpatient in clinic when discharged. Continue lactulose, rifaximin, nadolol. -tenofovir per GI for hepatitis B. -Monitor CMP. Hyponatremia Likely hypervolemic in setting of liver failure. -follow BMP. Improved. Acute renal failure/Hypokalemia May be s/t diuresis, dehydration or hepatorenal syndrome. Improved with albumin and IVFs. -hold diuretics. Resume when needed. Appears euvolemic at this time. -KCl 25 meq x 1. Hypoglycemia S/t poor PO intake. -ADAT. Add Ensure. -dietary consult. Chronic hepatic encephalopathy Ammonia has been elevated. -Continue Xifaxan. Increased lactulose. -Slow to respond but otherwise appropriate. -Cognitive evaluation performed by Dr. Mac neuropsychiatry, patient does have medical decision capacity. He will need assistance upon discharge based on having mild cognitive disorder. Generalized weakness Palliative care following/input appreciated -Continue physical therapy -Out of bed daily DVT prophylaxis: avoid chemical anticoagulation given coagulopathy and thrombocytopenia Discharge Planning: Case management assisting with placement (2) Liver cirrhosis Qualifiers: Hepatic cirrhosis type: other cirrhosis Qualified Code(s): K74.69 - Other cirrhosis of liver (4) Hepatitis B infection Qualifiers: Viral hepatitis chronicity: chronic
[2018-06-05] MEDS: Nadolol 20 MG Tablet PO SCH (09:38)
[2018-06-05] MEDS: rifAXIMin 550 MG Tablet PO SCH ×2 (09:38→21:24)
[2018-06-05] MEDS: Tenofovir 300 MG Tablet PO SCH (09:38)
[2018-06-05] MEDS: Sodium Chloride 0.9% 2 ML Flush BID IV.FLUSH SCH ×3 (09:44→21:24)
[2018-06-05] MEDS: Ferrous Sulfate 325 MG Tablet PO SCH ×2 (12:41→18:44)
--- NOTE | 2018-06-05 16:41 | P.PNIM ---
Subjective Interval history: The patient was resting in bed. He was hoping to go home soon. He was feeling weak. Discussed with nursing. Physical Exam Vital signs: Vital Signs 06/04/18 20:00 06/05/18 00:00 06/05/18 08:00 Temperature 97.8 F 97.6 F 98.2 F Pulse Rate 87 62 74 Respiratory Rate 18 18 17 Blood Pressure 82/55 L 87/52 L 99/53 L Pulse Oximetry 96 97 99 06/05/18 12:00 Temperature 96.3 F L Pulse Rate 66 Respiratory Rate 16 Blood Pressure 81/51 L Pulse Oximetry 97 Intake & Output 06/04/18 06/05/18 06/05/18 18:59 06:59 18:59 Intake Total 638 / 638 1200 / 1200 240 / 240 Output Total 300 / 300 Balance 638 / 638 900 / 900 240 / 240 Weight 65.2 kg Intake: IV 1000 / 1000 Oral 638 / 638 200 / 200 240 / 240 Output: Urine 300 / 300 Other: # Voids 2 Date of Last Bowel Movement 06/03/18 Narrative: GENERAL: Chronically ill appearing. SKIN: Warm and dry. Jaundiced. HEENT: Stye on right eye. CARDIOVASCULAR: Regular rate and rhythm. RESPIRATORY: No accessory muscle use. Clear to auscultation. Breath sounds equal bilaterally. GASTROINTESTINAL: Abdomen soft, non-tender, nondistended. MUSCULOSKELETAL: Extremities without clubbing, cyanosis, or edema. No obvious deformities. NEUROLOGICAL: Awake and alert x3. No obvious cranial nerve deficits. Generalized weakness, moving all 4 extremities normal speech. Delayed processing. PSYCH: Flat affect. Results - Labs CBC & Chem 7: 05/30/18 05:17 06/04/18 14:46 Assessment and Plan - Assessment (1) Encephalopathy Code(s): G93.40 - Encephalopathy, unspecified Status: Acute (2) Liver cirrhosis Code(s): K74.60 - Unspecified cirrhosis of liver Status: Acute (3) Hep C w/o coma, chronic Code(s): B18.2 - Chronic viral hepatitis C Status: Chronic (4) Hepatitis B infection Code(s): B19.10 - Unspecified viral hepatitis B without hepatic coma Status: Acute - Plan This is a 58 y/o male with history of Hep B, Hep C, and liver cirrhosis admitted on 04/29 after being transferred from [facility] for staghorn renal calculus complicated by UTI. Urology deemed no surgical intervention needed but will need a PCNL in the future as an outpatient. Now pending placement. Nephrolithiasis with UTI -Per urology will need PCNL as an outpatient Reviewed U/A from [place] on 04/28 which showed + nitrite, + leukocytes, + bacteria and yeast, and final urine culture resulted on 05/01 showed no growth Urine culture from 04/30 done at [place] growing Shante glabrata, recent UA 05/07 - no growth in 48 hrs. S/p PO Diflucan treatment for total of 2 weeks. -Continue Roxicodone for pain as needed. Pancytopenia HIV negative -s/p multiple cryoprecipitate transfusions -2/2 liver disease and splenomegaly Heme/onc following, stable for dc. -Outpatient follow-up with hematology ETOH Liver cirrhosis/HCV/HBV S/p treatment with Harvoni and recently tenofovir was prescribed with diagnosis of hepatitis B. The patient was apparently not compliant. Previously worked up in [facility] for liver transplant 2016 but unfortunately was not a candidate due to social issues and lack of support. Last EGD and colonoscopy in November 2016, portal hypertensive gastropathy noted on EGD otherwise both exams were normal. -GI recommends follow-up as outpatient in clinic when discharged. Continue lactulose, rifaximin, nadolol. -tenofovir per GI for hepatitis B. -Monitor CMP. Hypotension S/t liver disease. -holding parameters of nadolol. -NS 500 ml x 1. -fluids as needed. Hyponatremia Likely hypervolemic in setting of liver failure. -follow BMP. Improved. Acute renal failure/Hypokalemia May be s/t diuresis, dehydration or hepatorenal syndrome. Improved with albumin and IVFs. -hold diuretics. Resume when needed. Appears euvolemic at this time. Hypoglycemia S/t poor PO intake. -ADAT. Add Ensure. -dietary consult. Chronic hepatic encephalopathy Ammonia has been elevated. -Continue Xifaxan. Increased lactulose. -Slow to respond but otherwise appropriate. -Cognitive evaluation performed by Dr. Mac neuropsychiatry, patient does have medical decision capacity. He will need assistance upon discharge based on having mild cognitive disorder. Generalized weakness Palliative care following/input appreciated. -Continue physical therapy. -Out of bed daily. DVT prophylaxis: avoid chemical anticoagulation given coagulopathy and thrombocytopenia Discharge Planning: Pt is homeless. Awaiting place to go. He may leave AMA. (2) Liver cirrhosis Qualifiers: Hepatic cirrhosis type: other cirrhosis Qualified Code(s): K74.69 - Other cirrhosis of liver (4) Hepatitis B infection Qualifiers: Viral hepatitis chronicity: chronic
[2018-06-05] MEDS: Sodium Chlor 0.9% Inj 500 ML IV.SIG SCH ×2 (18:52→19:46)
[2018-06-06] MEDS ORDERED: Sodium Chlor 0.9% Inj 500 ML IV.SIG SCH (01:00)
[2018-06-06 02:55] LABS: Baso % (Auto) 0.5 % (0.0-2.0); Eos # (Auto) 0.1 th/mm3 (0.0-0.4); Eos % (Auto) 2.1 % (0.0-4.0); Hemoglobin 9.4 gm/dL (13.0-17.0); Lymph # (Auto) 0.9 th/mm3 (1.0-4.8); Mean Corpuscular HGB Conc 34.6 % (32.0-36.0); Mean Corpuscular Hemoglobin 38.4 pg (27.0-34.0); Mean Corpuscular Volume 110.9 fL (80.0-100.0); Mean Platelet Volume 8.6 fL (7.0-11.0); Mono # (Auto) 0.4 th/mm3 (0.0-0.9); Mono % (Auto) 7.9 % (0.0-8.0); Neut # (Auto) 3.8 th/mm3 (1.8-7.7); Neut % (Auto) 72.5 % (16.0-70.0); Platelet Count 54 th/mm3 (150-450); Red Blood Count 2.44 mil/mm3 (4.50-5.90); Red Cell Distribution Width 22.5 % (11.6-17.2); White Blood Count 5.3 th/mm3 (4.0-11.0)
[2018-06-06 03:26] LABS: Ovalocytes 1+; Platelet Morphology Normal (Normal)
[2018-06-06 03:57] LABS: Alanine Aminotransferase 46 U/L (12-78); Albumin 1.6 g/dL (3.4-5.0); Alkaline Phosphatase 121 U/L (45-117); Anion Gap 5 meq/L (5-15); Aspartate Aminotransferase 81 U/L (15-37); Blood Urea Nitrogen 13 mg/dL (7-18); Calcium 7.9 mg/dL (8.5-10.1); Carbon Dioxide 30.5 meq/L (21.0-32.0); Chloride 97 meq/L (98-107); Glomerular Filtration Rate 70 mL/min (>89); Glucose,Random 93 mg/dL (74-106); Potassium 4.4 meq/L (3.5-5.1); Sodium 132 meq/L (136-145); Total Protein 5.9 g/dL (6.4-8.2)
[2018-06-06 08:27] LABS: Baso % (Auto) 0.6 % (0.0-2.0); Eos # (Auto) 0.1 th/mm3 (0.0-0.4); Eos % (Auto) 2.2 % (0.0-4.0); Hematocrit 24.5 % (39.0-51.0); Hemoglobin 8.8 gm/dL (13.0-17.0); Lymph % (Auto) 17.5 % (9.0-44.0); Mean Corpuscular HGB Conc 35.9 % (32.0-36.0); Mean Corpuscular Hemoglobin 39.4 pg (27.0-34.0); Mean Corpuscular Volume 109.7 fL (80.0-100.0); Mean Platelet Volume 9.1 fL (7.0-11.0); Mono # (Auto) 0.4 th/mm3 (0.0-0.9); Mono % (Auto) 7.4 % (0.0-8.0); Neut # (Auto) 4.2 th/mm3 (1.8-7.7); Neut % (Auto) 72.3 % (16.0-70.0); Platelet Count 51 th/mm3 (150-450); Red Blood Count 2.23 mil/mm3 (4.50-5.90); White Blood Count 5.8 th/mm3 (4.0-11.0)
[2018-06-06 08:29] LABS: Calcium 7.6 mg/dL (8.5-10.1); Magnesium 1.8 mg/dL (1.5-2.5); Phosphorus 1.4 mg/dL (2.5-4.9)
[2018-06-06] MEDS: Nadolol 20 MG Tablet PO SCH (08:55)
[2018-06-06] MEDS: Sodium Chloride 0.9% 2 ML Flush BID IV.FLUSH SCH ×2 (08:55→21:06)
[2018-06-06] MEDS: rifAXIMin 550 MG Tablet PO SCH ×2 (08:56→21:06)
[2018-06-06] MEDS: Tenofovir 300 MG Tablet PO SCH (08:56)
--- NOTE | 2018-06-06 10:18 | P.PNIM ---
Subjective Interval history: in no acute distress. looks comfortable. no new complaints. Physical Exam Vital signs: Vital Signs 06/05/18 12:00 06/05/18 16:00 06/05/18 20:00 Temperature 96.3 F L 98.0 F 98.6 F Pulse Rate 66 61 60 Respiratory Rate 16 17 16 Blood Pressure 81/51 L 82/49 L 99/51 L Pulse Oximetry 97 98 97 06/06/18 00:10 06/06/18 00:13 06/06/18 04:00 Temperature 96.9 F L Pulse Rate 81 60 Respiratory Rate 16 Blood Pressure 87/50 L 76/50 L 88/49 L Pulse Oximetry 94 L 06/06/18 08:00 Temperature 97.6 F Pulse Rate 62 Respiratory Rate 16 Blood Pressure 91/50 L Pulse Oximetry 100 Intake & Output 06/05/18 06/06/18 06/06/18 18:59 06:59 18:59 Intake Total 240 / 240 1180 / 1180 Output Total 400 / 400 Balance 240 / 240 780 / 780 Weight 65 kg Intake: IV 1000 / 1000 NS Inj 500 ML @ 1000 mls/hr IV. 1000 / 1000 SIG BOLUS NIRAJ Rx#:[id number] Oral 240 / 240 180 / 180 Output: Urine 400 / 400 Other: Date of Last Bowel Movement 06/04/18 - Constitutional no acute distress - Routine Respiratory Exam Present: CTA bilaterally - Routine Cardiovascular Exam Present: RRR - Routine Abdominal Exam Present: soft - Routine Extremities Exam Comments: no pedal edema. - Routine Neurological Exam Present: alert, oriented X3 Results - Labs CBC & Chem 7: 06/06/18 06:29 06/06/18 06:29 Laboratory Results - last 24 hr 06/05/18 06/05/18 06/06/18 17:25 21:29 02:37 WBC 5.3 RBC 2.44 L Hgb 9.4 L Hct 27.0 L MCV 110.9 H MCH 38.4 H MCHC 34.6 RDW 22.5 H Plt Count 54 L MPV 8.6 Prelim Diff (Auto) Slide review pending Neut % (Auto) 72.5 H Lymph % (Auto) 17.0 [place] % (Auto) 7.9 Eos % (Auto) 2.1 Baso % (Auto) 0.5 Neut # (Auto) 3.8 Lymph # (Auto) 0.9 L [place] # (Auto) 0.4 Eos # (Auto) 0.1 Baso # (Auto) 0.0 WBC Differential . Diff Scan Auto diff confirmed Differential Comment . Platelet Estimate Low L Platelet Morphology Normal Ovalocytes 1+ H Sodium Potassium Chloride Carbon Dioxide Anion Gap BUN Creatinine Estimated GFR POC Glucose 121 H 148 H Random Glucose Calcium Phosphorus Magnesium Total Bilirubin AST ALT Alkaline Phosphatase Total Protein Albumin 06/06/18 06/06/18 06/06/18 02:37 06:29 06:29 WBC 5.8 RBC 2.23 L Hgb 8.8 L Hct 24.5 L MCV 109.7 H MCH 39.4 H MCHC 35.9 RDW 22.0 H Plt Count 51 L MPV 9.1 Prelim Diff (Auto) Slide review pending Neut % (Auto) 72.3 H Lymph % (Auto) 17.5 [place] % (Auto) 7.4 Eos % (Auto) 2.2 Baso % (Auto) 0.6 Neut # (Auto) 4.2 Lymph # (Auto) 1.0 [place] # (Auto) 0.4 Eos # (Auto) 0.1 Baso # (Auto) 0.0 WBC Differential Diff Scan Differential Comment . Platelet Estimate Platelet Morphology Ovalocytes Sodium 132 L 129 L Potassium 4.4 D 4.0 Chloride 97 L 95 L Carbon Dioxide 30.5 27.0 Anion Gap 5 7 BUN 13 13 Creatinine 1.09 0.97 Estimated GFR 70 L 80 L POC Glucose Random Glucose 93 105 Calcium 7.9 L 7.6 L Phosphorus 1.4 L Magnesium 1.8 Total Bilirubin 10.1 H AST 81 H ALT 46 Alkaline Phosphatase 121 H Total Protein 5.9 L D Albumin 1.6 L 06/06/18 07:56 WBC RBC Hgb Hct MCV MCH MCHC RDW Plt Count MPV Prelim Diff (Auto) Neut % (Auto) Lymph % (Auto) [place] % (Auto) Eos % (Auto) Baso % (Auto) Neut # (Auto) Lymph # (Auto) [place] # (Auto) Eos # (Auto) Baso # (Auto) WBC Differential Diff Scan Differential Comment Platelet Estimate Platelet Morphology Ovalocytes Sodium Potassium Chloride Carbon Dioxide Anion Gap BUN Creatinine Estimated GFR POC Glucose 112 H Random Glucose Calcium Phosphorus Magnesium Total Bilirubin AST ALT Alkaline Phosphatase Total Protein Albumin Assessment and Plan - Assessment (1) Encephalopathy Code(s): G93.40 - Encephalopathy, unspecified Status: Acute (2) Liver cirrhosis Code(s): K74.60 - Unspecified cirrhosis of liver Status: Acute (3) Hep C w/o coma, chronic Code(s): B18.2 - Chronic viral hepatitis C Status: Chronic (4) Hepatitis B infection Code(s): B19.10 - Unspecified viral hepatitis B without hepatic coma Status: Acute - Plan This is a 58 y/o male with history of Hep B, Hep C, and liver cirrhosis admitted on 04/29 after being transferred from [facility] for staghorn renal calculus complicated by UTI. Urology deemed no surgical intervention needed but will need a PCNL in the future as an outpatient. Now pending placement. Nephrolithiasis with UTI -Per urology will need PCNL as an outpatient Reviewed U/A from [place] on 04/28 which showed + nitrite, + leukocytes, + bacteria and yeast, and final urine culture resulted on 05/01 showed no growth U[place] culture [place] growing [place]ante glabrata, recent UA 05/07 - no growth in 48 hrs. S/p PO Diflucan treatment for total of 2 weeks. -Continue Roxicodone for pain as needed. Pancytopenia HIV negative -s/p multiple cryoprecipitate transfusions -2/2 liver disease and splenomegaly Heme/onc following, stable for dc. -Outpatient follow-up with hematology ETOH Liver cirrhosis/HCV/HBV S/p treatment with Harvoni and recently tenofovir was prescribed with diagnosis of hepatitis B. The patient was apparently not compliant. Previously worked up in [facility] for liver transplant 2016 but unfortunately was not a candidate due to social issues and lack of support. Last EGD and colonoscopy in November 2016, portal hypertensive gastropathy noted on EGD otherwise both exams were normal. -GI recommends follow-up as outpatient in clinic when discharged. Continue lactulose, rifaximin, nadolol. -tenofovir per GI for hepatitis B. -Monitor CMP. Hypotension- asymptomatic- S/t liver disease. -holding parameters of nadolol. -fluids as needed. Hyponatremia Likely hypervolemic in setting of liver failure. -continue with fluid restriction -monitor periodically. Acute renal failure/Hypokalemia May be s/t diuresis, dehydration or hepatorenal syndrome. Improved with albumin and IVFs. -hold diuretics. Resume when needed. Appears euvolemic at this time. Hypoglycemia S/t poor PO intake. -ADAT. Add Ensure. -dietary consulted. Chronic hepatic encephalopathy -Continue Xifaxan and lactulose. -Slow to respond but otherwise appropriate. -Cognitive evaluation performed by Dr. Mac neuropsychiatry, patient does have medical decision capacity. He will need assistance upon discharge based on having mild cognitive disorder. Generalized weakness Palliative care following/input appreciated. -Continue physical therapy. -Out of bed daily. DVT prophylaxis: avoid chemical anticoagulation given coagulopathy and thrombocytopenia Discharge Planning: patient is homeless. dc planning in progress. (2) Liver cirrhosis Qualifiers: Hepatic cirrhosis type: other cirrhosis Qualified Code(s): K74.69 - Other cirrhosis of liver (4) Hepatitis B infection Qualifiers: Viral hepatitis chronicity: chronic
[2018-06-06] MEDS: Ferrous Sulfate 325 MG Tablet PO SCH ×2 (12:14→17:23)
[2018-06-06 12:38] LABS: Acanthocytes Occ; Ovalocytes 1+
[2018-06-06 12:39] LABS: Platelet Morphology Normal (Normal)
[2018-06-07] MEDS: Sodium Chloride 0.9% 2 ML Flush BID IV.FLUSH SCH ×2 (08:07→20:34)
[2018-06-07] MEDS: Tenofovir 300 MG Tablet PO SCH (08:07)
[2018-06-07] MEDS: rifAXIMin 550 MG Tablet PO SCH ×2 (08:07→20:28)
[2018-06-07] MEDS: Nadolol 20 MG Tablet PO SCH (08:07)
--- NOTE | 2018-06-07 10:46 | P.PNIM ---
Subjective Interval history: resting comfortably with no distress. no new complaints. Physical Exam Vital signs: Vital Signs 06/06/18 12:00 06/06/18 16:00 06/06/18 20:00 Temperature 98.8 F 98.0 F 98.4 F Pulse Rate 75 87 84 Respiratory Rate 16 16 17 Blood Pressure 93/50 L 95/55 L 98/56 L Pulse Oximetry 98 98 99 06/07/18 00:00 06/07/18 08:00 Temperature 98.5 F 97.9 F Pulse Rate 82 71 Respiratory Rate 18 15 Blood Pressure 89/52 L 100/54 L Pulse Oximetry 99 78 L Intake & Output 06/06/18 06/07/18 06/07/18 19:59 06:59 18:59 Intake Total Output Total Balance Weight Intake: Oral Output: Urine Other: # Voids # Incontinent Voids Date of Last Bowel Movement 06/07/18 # Bowel Movements - Constitutional no acute distress - Routine Respiratory Exam Present: CTA bilaterally - Routine Cardiovascular Exam Present: RRR - Routine Abdominal Exam Present: soft - Routine Extremities Exam Comments: no pedal edema. - Routine Neurological Exam Present: alert, oriented X3 Results - Labs CBC & Chem 7: 06/06/18 06:29 06/06/18 06:29 Laboratory Results - last 24 hr 06/06/18 06/06/18 06/06/18 06:29 12:13 17:22 WBC Differential . Diff Scan Auto diff confirmed Platelet Estimate Low L Platelet Morphology Normal Ovalocytes 1+ H Acanthocytes (Spur) Occ H Keratocytes Occ H POC Glucose 97 109 06/06/18 06/07/18 06/07/18 23:14 05:45 05:46 WBC Differential Diff Scan Platelet Estimate Platelet Morphology Ovalocytes Acanthocytes (Spur) Keratocytes POC Glucose 138 H 192 H 99 Assessment and Plan - Assessment (1) Encephalopathy Code(s): G93.40 - Encephalopathy, unspecified Status: Acute (2) Liver cirrhosis Code(s): K74.60 - Unspecified cirrhosis of liver Status: Acute (3) Hep C w/o coma, chronic Code(s): B18.2 - Chronic viral hepatitis C Status: Chronic (4) Hepatitis B infection Code(s): B19.10 - Unspecified viral hepatitis B without hepatic coma Status: Acute - Plan This is a 58 y/o male with history of Hep B, Hep C, and liver cirrhosis admitted on 04/29 after being transferred from [facility] for staghorn renal calculus complicated by UTI. Urology deemed no surgical intervention needed but will need a PCNL in the future as an outpatient. Now pending placement. Nephrolithiasis with UTI -Per urology will need PCNL as an outpatient Reviewed U/A from [place] on 04/28 which showed + nitrite, + leukocytes, + bacteria and yeast, and final urine culture resulted on 05/01 showed no growth Urine culture from 04/30 done at [place] growing Shante glabrata, recent UA 05/07 - no growth in 48 hrs. S/p PO Diflucan treatment for total of 2 weeks. -Continue Roxicodone for pain as needed. Pancytopenia HIV negative -s/p multiple cryoprecipitate transfusions -2/2 liver disease and splenomegaly Heme/onc following, stable for dc. -Outpatient follow-up with hematology ETOH Liver cirrhosis/HCV/HBV S/p treatment with Harvoni and recently tenofovir was prescribed with diagnosis of hepatitis B. The patient was apparently not compliant. Previously worked up in [facility] for liver transplant 2016 but unfortunately was not a candidate due to social issues and lack of support. Last EGD and colonoscopy in November 2016, portal hypertensive gastropathy noted on EGD otherwise both exams were normal. -GI recommends follow-up as outpatient in clinic when discharged. Continue lactulose, rifaximin, nadolol. -tenofovir per GI for hepatitis B. -Monitor CMP. Hypotension- asymptomatic- S/t liver disease. -holding parameters of nadolol. -fluids as needed. Hyponatremia Likely hypervolemic in setting of liver failure. -continue with fluid restriction -monitor periodically. Acute renal failure/Hypokalemia May be s/t diuresis, dehydration or hepatorenal syndrome. Improved with albumin and IVFs. -hold diuretics. Resume when needed. Appears euvolemic at this time. Hypoglycemia S/t poor PO intake. -ADAT. Add Ensure. -dietary consulted. Chronic hepatic encephalopathy -Continue Xifaxan and lactulose. -Slow to respond but otherwise appropriate. -Cognitive evaluation performed by Dr. Mac neuropsychiatry, patient does have medical decision capacity. He will need assistance upon discharge based on having mild cognitive disorder. Generalized weakness Palliative care following/input appreciated. -Continue physical therapy. -Out of bed daily. DVT prophylaxis: avoid chemical anticoagulation given coagulopathy and thrombocytopenia Discharge Planning: patient is homeless. dc planning in progress. (2) Liver cirrhosis Qualifiers: Hepatic cirrhosis type: other cirrhosis Qualified Code(s): K74.69 - Other cirrhosis of liver (4) Hepatitis B infection Qualifiers: Viral hepatitis chronicity: chronic
[2018-06-07] MEDS: Ferrous Sulfate 325 MG Tablet PO SCH ×2 (11:51→17:14)
[2018-06-08] MEDS: Nadolol 20 MG Tablet PO SCH (08:44)
[2018-06-08] MEDS: Tenofovir 300 MG Tablet PO SCH (08:45)
[2018-06-08] MEDS: Sodium Chloride 0.9% 2 ML Flush BID IV.FLUSH SCH ×2 (08:45→20:44)
[2018-06-08] MEDS: rifAXIMin 550 MG Tablet PO SCH ×2 (08:45→20:38)
--- NOTE | 2018-06-08 10:24 | P.PNIM ---
Subjective Interval history: in no acute distress. resting comfortably. no new complaints. Physical Exam Vital signs: Vital Signs 06/07/18 12:00 06/07/18 16:00 06/07/18 20:00 Temperature 98.6 F 98.7 F 98.2 F Pulse Rate 73 68 73 Respiratory Rate 14 13 18 Blood Pressure 89/48 L 89/51 L 97/53 L Pulse Oximetry 98 82 L 97 06/08/18 00:00 06/08/18 08:00 Temperature 98.8 F 97.8 F Pulse Rate 64 68 Respiratory Rate 18 14 Blood Pressure 91/53 L 92/54 L Pulse Oximetry 100 100 Intake & Output 06/07/18 06/08/18 06/08/18 18:59 06:59 18:59 Intake Total 480 / 480 480 / 480 Balance 480 / 480 480 / 480 Weight 65 kg Intake: Oral 480 / 480 480 / 480 Other: # Voids 2 # Incontinent Voids 3 Date of Last Bowel Movement 06/07/18 # Bowel Movements 1 # Incontinent Bowel Movements 2 - Constitutional no acute distress (no change clinically.) Results - Labs CBC & Chem 7: 06/06/18 06:29 06/06/18 06:29 Laboratory Results - last 24 hr 06/07/18 06/07/18 06/08/18 12:28 16:05 05:38 POC Glucose 148 H 150 H 107 Assessment and Plan - Assessment (1) Encephalopathy Code(s): G93.40 - Encephalopathy, unspecified Status: Acute (2) Liver cirrhosis Code(s): K74.60 - Unspecified cirrhosis of liver Status: Acute (3) Hep C w/o coma, chronic Code(s): B18.2 - Chronic viral hepatitis C Status: Chronic (4) Hepatitis B infection Code(s): B19.10 - Unspecified viral hepatitis B without hepatic coma Status: Acute - Plan This is a 58 y/o male with history of Hep B, Hep C, and liver cirrhosis admitted on 04/29 after being transferred from [facility] for staghorn renal calculus complicated by UTI. Urology deemed no surgical intervention needed but will need a PCNL in the future as an outpatient. Now pending placement. Nephrolithiasis with UTI -Per urology will need PCNL as an outpatient Reviewed U/A from [place] on 04/28 which showed + nitrite, + leukocytes, + bacteria and yeast, and final urine culture resulted on 05/01 showed no growth Urine culture from 04/30 done at [place] growing Shante glabrata, recent UA 05/07 - no growth in 48 hrs. S/p PO Diflucan treatment for total of 2 weeks. -Continue Roxicodone for pain as needed. Pancytopenia HIV negative -s/p multiple cryoprecipitate transfusions -2/2 liver disease and splenomegaly Heme/onc following, stable for dc. -Outpatient follow-up with hematology ETOH Liver cirrhosis/HCV/HBV S/p treatment with Harvoni and recently tenofovir was prescribed with diagnosis of hepatitis B. The patient was apparently not compliant. Previously worked up in [facility] for liver transplant 2016 but unfortunately was not a candidate due to social issues and lack of support. Last EGD and colonoscopy in November 2016, portal hypertensive gastropathy noted on EGD otherwise both exams were normal. -GI recommends follow-up as outpatient in clinic when discharged. Continue lactulose, rifaximin, nadolol. -tenofovir per GI for hepatitis B. -Monitor CMP. Hypotension- asymptomatic- S/t liver disease. -holding parameters of nadolol. -fluids as needed. Hyponatremia Likely hypervolemic in setting of liver failure. -continue with fluid restriction -monitor periodically. Acute renal failure/Hypokalemia May be s/t diuresis, dehydration or hepatorenal syndrome. Improved with albumin and IVFs. -hold diuretics. Resume when needed. Appears euvolemic at this time. Hypoglycemia S/t poor PO intake. -ADAT. Add Ensure. -dietary consulted. Chronic hepatic encephalopathy -Continue Xifaxan and lactulose. -Slow to respond but otherwise appropriate. -Cognitive evaluation performed by Dr. Mac neuropsychiatry, patient does have medical decision capacity. He will need assistance upon discharge based on having mild cognitive disorder. Generalized weakness Palliative care following/input appreciated. -Continue physical therapy. -Out of bed daily. DVT prophylaxis: avoid chemical anticoagulation given coagulopathy and thrombocytopenia Discharge Planning: patient is homeless. dc planning in progress. (2) Liver cirrhosis Qualifiers: Hepatic cirrhosis type: other cirrhosis Qualified Code(s): K74.69 - Other cirrhosis of liver (4) Hepatitis B infection Qualifiers: Viral hepatitis chronicity: chronic
--- NOTE | 2018-06-08 12:07 | P.PNPAL ---
Palliative care continues to follow along with Mr. Valadez. Case management continues to work on discharge plan. In previous palliative care visits Mr. Valadez has verbalized he would be able to discharge and live with his father; unable to contact as phone number information in patient's cell phone and it is . Palliative care has requested submit for approval to purchase a supervisor word processing to assist with facilitating discharge. Spoke with RN- no cell phone supervisor word processing to date. Obtained patient's father's name to request accurint. [employer] has been requested today in attempt to locate patient's father, Carl Valadez. Awaiting results. Palliative care will continue to follow throughout hospitalization.
[2018-06-08] MEDS: Ferrous Sulfate 325 MG Tablet PO SCH ×2 (12:26→17:41)
[2018-06-09 07:36] LABS: Baso % (Auto) 0.3 % (0.0-2.0); Eos # (Auto) 0.1 th/mm3 (0.0-0.4); Eos % (Auto) 1.8 % (0.0-4.0); Hematocrit 27.1 % (39.0-51.0); Hemoglobin 9.8 gm/dL (13.0-17.0); Lymph # (Auto) 0.9 th/mm3 (1.0-4.8); Lymph % (Auto) 17.6 % (9.0-44.0); Mean Corpuscular Hemoglobin 39.7 pg (27.0-34.0); Mean Corpuscular Volume 109.8 fL (80.0-100.0); Mean Platelet Volume 8.4 fL (7.0-11.0); Mono # (Auto) 0.4 th/mm3 (0.0-0.9); Mono % (Auto) 8.2 % (0.0-8.0); Neut # (Auto) 3.6 th/mm3 (1.8-7.7); Neut % (Auto) 72.1 % (16.0-70.0); Platelet Count 49 th/mm3 (150-450); Red Blood Count 2.47 mil/mm3 (4.50-5.90)
[2018-06-09 08:08] LABS: Potassium 4.1 meq/L (3.5-5.1)
[2018-06-09 08:21] LABS: Mean Corpuscular HGB Conc 36.1 % (32.0-36.0)
[2018-06-09 08:23] LABS: Platelet Morphology Normal (Normal)
[2018-06-09] MEDS: Tenofovir 300 MG Tablet PO SCH (10:29)
[2018-06-09] MEDS: rifAXIMin 550 MG Tablet PO SCH ×2 (10:29→21:21)
[2018-06-09] MEDS: Sodium Chloride 0.9% 2 ML Flush BID IV.FLUSH SCH ×2 (10:30→21:24)
[2018-06-09] MEDS: Nadolol 20 MG Tablet PO SCH (10:30)
--- NOTE | 2018-06-09 11:27 | P.PNIM ---
Subjective Interval history: in no acute distress. clinically no change. Physical Exam Vital signs: Vital Signs 06/08/18 12:00 06/08/18 16:00 06/08/18 20:00 Temperature 98.4 F 98.4 F 98.0 F Pulse Rate 73 84 78 Respiratory Rate 14 14 18 Blood Pressure 94/53 L 92/56 L 85/52 L Pulse Oximetry 99 98 97 06/09/18 00:00 06/09/18 08:00 Temperature 97.3 F L 98 F Pulse Rate 78 72 Respiratory Rate 19 15 Blood Pressure 91/53 L 95/51 L Pulse Oximetry 99 98 Intake & Output 06/08/18 06/09/18 06/09/18 18:59 06:59 18:59 Intake Total 180 / 180 400 / 400 Output Total 400 / 400 Balance 180 / 180 0 / 0 Weight 66.9 kg Intake: Oral 180 / 180 400 / 400 Output: Urine 400 / 400 Other: # Voids 1 1 Date of Last Bowel Movement 06/08/18 06/08/18 # Bowel Movements 1 - Constitutional no acute distress (clinically no change.) Results - Labs CBC & Chem 7: 06/09/18 07:13 06/09/18 07:13 Laboratory Results - last 24 hr 06/08/18 06/08/18 06/09/18 11:34 17:40 00:33 WBC RBC Hgb Hct MCV MCH MCHC RDW Plt Count MPV Prelim Diff (Auto) Neut % (Auto) Lymph % (Auto) [place] % (Auto) Eos % (Auto) Baso % (Auto) Neut # (Auto) Lymph # (Auto) [place] # (Auto) Eos # (Auto) Baso # (Auto) WBC Differential Diff Scan Differential Comment Platelet Estimate Platelet Morphology Sodium Potassium Chloride Carbon Dioxide Anion Gap BUN Creatinine Estimated GFR POC Glucose 103 154 H 125 H Random Glucose Calcium 06/09/18 06/09/18 06/09/18 05:54 07:13 07:13 WBC 5.0 RBC 2.47 L Hgb 9.8 L Hct 27.1 L MCV 109.8 H MCH 39.7 H MCHC 36.1 H RDW 21.0 H Plt Count 49 L MPV 8.4 Prelim Diff (Auto) Slide review pending Neut % (Auto) 72.1 H Lymph % (Auto) 17.6 [place] % (Auto) 8.2 H Eos % (Auto) 1.8 Baso % (Auto) 0.3 Neut # (Auto) 3.6 Lymph # (Auto) 0.9 L [place] # (Auto) 0.4 Eos # (Auto) 0.1 Baso # (Auto) 0.0 WBC Differential . Diff Scan Auto diff confirmed Differential Comment . Platelet Estimate Low L Platelet Morphology Normal Sodium 133 L Potassium 4.1 Chloride 97 L Carbon Dioxide 29.0 Anion Gap 7 BUN 16 Creatinine 0.98 Estimated GFR 79 L POC Glucose 115 H Random Glucose 97 Calcium 8.0 L Assessment and Plan - Assessment (1) Encephalopathy Code(s): G93.40 - Encephalopathy, unspecified Status: Acute (2) Liver cirrhosis Code(s): K74.60 - Unspecified cirrhosis of liver Status: Acute (3) Hep C w/o coma, chronic Code(s): B18.2 - Chronic viral hepatitis C Status: Chronic (4) Hepatitis B infection Code(s): B19.10 - Unspecified viral hepatitis B without hepatic coma Status: Acute - Plan This is a 58 y/o male with history of Hep B, Hep C, and liver cirrhosis admitted on 04/29 after being transferred from [facility] for staghorn renal calculus complicated by UTI. Urology deemed no surgical intervention needed but will need a PCNL in the future as an outpatient. Now pending placement. Nephrolithiasis with UTI -Per urology will need PCNL as an outpatient Reviewed U/A from [place] on 04/28 which showed + nitrite, + leukocytes, + bacteria and yeast, and final urine culture resulted on 05/01 showed no growth Urine culture from 04/30 done at [place] growing Shante glabrata, recent UA 05/07 - no growth in 48 hrs. S/p PO Diflucan treatment for total of 2 weeks. -Continue Roxicodone for pain as needed. Pancytopenia HIV negative -s/p multiple cryoprecipitate transfusions -2/2 liver disease and splenomegaly Heme/onc following, stable for dc. -Outpatient follow-up with hematology ETOH Liver cirrhosis/HCV/HBV S/p treatment with Harvoni and recently tenofovir was prescribed with diagnosis of hepatitis B. The patient was apparently not compliant. Previously worked up in [facility] for liver transplant 2016 but unfortunately was not a candidate due to social issues and lack of support. Last EGD and colonoscopy in November 2016, portal hypertensive gastropathy noted on EGD otherwise both exams were normal. -GI recommends follow-up as outpatient in clinic when discharged. Continue lactulose, rifaximin, nadolol. -tenofovir per GI for hepatitis B. -Monitor CMP. Hypotension- asymptomatic- S/t liver disease. -holding parameters of nadolol. -fluids as needed. Hyponatremia- stable. Likely hypervolemic in setting of liver failure. -continue with fluid restriction -monitor periodically. Acute renal failure/Hypokalemia May be s/t diuresis, dehydration or hepatorenal syndrome. Improved with albumin and IVFs. -hold diuretics. Resume when needed. Appears euvolemic at this time. Hypoglycemia S/t poor PO intake. -ADAT. Add Ensure. -dietary consulted. Chronic hepatic encephalopathy -Continue Xifaxan and lactulose. -Slow to respond but otherwise appropriate. -Cognitive evaluation performed by Dr. Mac neuropsychiatry, patient does have medical decision capacity. He will need assistance upon discharge based on having mild cognitive disorder. Generalized weakness Palliative care following/input appreciated. -Continue physical therapy. -Out of bed daily. DVT prophylaxis: avoid chemical anticoagulation given coagulopathy and thrombocytopenia Discharge Planning: patient is homeless. dc planning in progress. (2) Liver cirrhosis Qualifiers: Hepatic cirrhosis type: other cirrhosis Qualified Code(s): K74.69 - Other cirrhosis of liver (4) Hepatitis B infection Qualifiers: Viral hepatitis chronicity: chronic
--- NOTE | 2018-06-09 12:12 | P.PNPAL ---
Palliative care able to obtain phone combustion analyst to assist in getting names and contact information off patient's phone for possible alternatives to discharge plan. Patient not in room upon initial entrance into room. Returned later after phone had time to charge. Patient in bed, appears comfortable without complaint. Inquired about patient's father's contact information. Patient stated he did not have it. Asked patient to obtain from phone now that it is charged and he again states he does not have any contact information. States his father lives in [facility]. Informed him hospital ran report in attempt to locate his father and contact information and only possible match showed as . Patient then states, "my father is ". Patient then states "I don't know why this is important now, I've been trying to get out of here.". Given above information with today's conversation with patient, he will not be able to discharge home to live with his father as his father is . Palliative care STENOCAPTIONER received call from patient's brother, see note for additional information. Palliative care will continue to follow throughout hospitalization.
[2018-06-09] MEDS: Ferrous Sulfate 325 MG Tablet PO SCH ×2 (13:54→18:02)
[2018-06-10] MEDS: Tenofovir 300 MG Tablet PO SCH (09:00)
[2018-06-10] MEDS: rifAXIMin 550 MG Tablet PO SCH ×2 (09:00→21:29)
[2018-06-10] MEDS: Nadolol 20 MG Tablet PO SCH (09:01)
[2018-06-10] MEDS: Sodium Chloride 0.9% 2 ML Flush BID IV.FLUSH SCH ×2 (09:18→21:31)
--- NOTE | 2018-06-10 10:52 | P.PNIM ---
Subjective Interval history: in no acute distress. no new complaints. Physical Exam Vital signs: Vital Signs 06/09/18 12:00 06/09/18 16:00 06/09/18 20:00 Temperature 97.4 F L 97.9 F 98.1 F Pulse Rate 72 68 85 Respiratory Rate 15 15 17 Blood Pressure 96/56 L 83/45 L 85/51 L Pulse Oximetry 100 97 99 06/10/18 00:00 06/10/18 01:28 06/10/18 07:16 Temperature 97.2 F L 97.7 F Pulse Rate 82 65 Respiratory Rate 18 16 16 Blood Pressure 96/52 L 106/55 L Pulse Oximetry 99 99 Intake & Output 06/09/18 06/10/18 06/10/18 18:59 06:59 18:59 Intake Total 1080 / 1080 400 / 400 Output Total 100 / 100 Balance 1080 / 1080 300 / 300 Weight 66.9 kg Intake: Oral 1080 / 1080 400 / 400 Output: Urine 100 / 100 Other: # Voids 4 # Incontinent Voids 4 Date of Last Bowel Movement 06/08/18 06/08/18 - Constitutional no acute distress (clinically no change.) Results - Labs CBC & Chem 7: 06/09/18 07:13 06/09/18 07:13 Assessment and Plan - Assessment (1) Encephalopathy Code(s): G93.40 - Encephalopathy, unspecified Status: Acute (2) Liver cirrhosis Code(s): K74.60 - Unspecified cirrhosis of liver Status: Acute (3) Hep C w/o coma, chronic Code(s): B18.2 - Chronic viral hepatitis C Status: Chronic (4) Hepatitis B infection Code(s): B19.10 - Unspecified viral hepatitis B without hepatic coma Status: Acute - Plan This is a 58 y/o male with history of Hep B, Hep C, and liver cirrhosis admitted on 04/29 after being transferred from [facility] for staghorn renal calculus complicated by UTI. Urology deemed no surgical intervention needed but will need a PCNL in the future as an outpatient. Now pending placement. Nephrolithiasis with UTI -Per urology will need PCNL as an outpatient Reviewed U/A from [place] on 04/28 which showed + nitrite, + leukocytes, + bacteria and yeast, and final urine culture resulted on 05/01 showed no growth Urine culture from 04/30 done at [place] growing Shante glabrata, recent UA 05/07 - no growth in 48 hrs. S/p PO Diflucan treatment for total of 2 weeks. -Continue Roxicodone for pain as needed. Pancytopenia HIV negative -s/p multiple cryoprecipitate transfusions -2/2 liver disease and splenomegaly Heme/onc following, stable for dc. -Outpatient follow-up with hematology ETOH Liver cirrhosis/HCV/HBV S/p treatment with Harvoni and recently tenofovir was prescribed with diagnosis of hepatitis B. The patient was apparently not compliant. Previously worked up in [facility] for liver transplant 2016 but unfortunately was not a candidate due to social issues and lack of support. Last EGD and colonoscopy in November 2016, portal hypertensive gastropathy noted on EGD otherwise both exams were normal. -GI recommends follow-up as outpatient in clinic when discharged. Continue lactulose, rifaximin, nadolol. -tenofovir per GI for hepatitis B. -Monitor CMP. Hypotension- asymptomatic- S/t liver disease. -holding parameters of nadolol. -fluids as needed. Hyponatremia- stable. Likely hypervolemic in setting of liver failure. -continue with fluid restriction -monitor periodically. Acute renal failure/Hypokalemia- resolved -hold diuretics. Resume when needed. Appears euvolemic at this time. Hypoglycemia-resolved. S/t poor PO intake. -ADAT. Add Ensure. -dietary consulted. Chronic hepatic encephalopathy -Continue Xifaxan and lactulose. -Slow to respond but otherwise appropriate. -Cognitive evaluation performed by Dr. Mac neuropsychiatry, patient does have medical decision capacity. He will need assistance upon discharge based on having mild cognitive disorder. Generalized weakness Palliative care following/input appreciated. -Continue physical therapy. -Out of bed daily. DVT prophylaxis: avoid chemical anticoagulation given coagulopathy and thrombocytopenia Discharge Planning: patient is homeless. dc planning in progress. (2) Liver cirrhosis Qualifiers: Hepatic cirrhosis type: other cirrhosis Qualified Code(s): K74.69 - Other cirrhosis of liver (4) Hepatitis B infection Qualifiers: Viral hepatitis chronicity: chronic
[2018-06-10] MEDS: Ferrous Sulfate 325 MG Tablet PO SCH ×2 (13:11→17:37)
[2018-06-11] MEDS: Nadolol 20 MG Tablet PO SCH (09:52)
[2018-06-11] MEDS: rifAXIMin 550 MG Tablet PO SCH ×2 (09:53→23:00)
[2018-06-11] MEDS: Tenofovir 300 MG Tablet PO SCH (09:53)
[2018-06-11] MEDS: Sodium Chloride 0.9% 2 ML Flush BID IV.FLUSH SCH ×2 (09:54→23:02)
--- NOTE | 2018-06-11 11:11 | P.PNIM ---
Subjective Interval history: in no acute distress. resting comfortably. Physical Exam Vital signs: Vital Signs 06/10/18 11:18 06/10/18 16:00 06/10/18 20:00 Temperature 98.1 F 97.8 F 97.8 F Pulse Rate 72 83 77 Respiratory Rate 18 17 17 Blood Pressure 84/51 L 111/74 101/50 L Pulse Oximetry 99 98 99 06/11/18 00:00 06/11/18 08:00 Temperature 97.8 F 97.9 F Pulse Rate 77 78 Respiratory Rate 17 13 Blood Pressure 101/50 L 91/51 L Pulse Oximetry 99 99 Intake & Output 06/10/18 06/11/18 06/11/18 18:59 06:59 18:59 Intake Total 600 / 600 120 / 120 Balance 600 / 600 120 / 120 Weight 65.2 kg Intake: Oral 600 / 600 120 / 120 Other: # Voids 4 # Incontinent Voids 2 Date of Last Bowel Movement 06/08/18 06/10/18 # Bowel Movements 3 1 - Constitutional no acute distress (clinically no change.) Results - Labs CBC & Chem 7: 06/09/18 07:13 06/09/18 07:13 Assessment and Plan - Assessment (1) Encephalopathy Code(s): G93.40 - Encephalopathy, unspecified Status: Acute (2) Liver cirrhosis Code(s): K74.60 - Unspecified cirrhosis of liver Status: Acute (3) Hep C w/o coma, chronic Code(s): B18.2 - Chronic viral hepatitis C Status: Chronic (4) Hepatitis B infection Code(s): B19.10 - Unspecified viral hepatitis B without hepatic coma Status: Acute - Plan This is a 58 y/o male with history of Hep B, Hep C, and liver cirrhosis admitted on 04/29 after being transferred from [facility] for staghorn renal calculus complicated by UTI. Urology deemed no surgical intervention needed but will need a PCNL in the future as an outpatient. Now pending placement. Nephrolithiasis with UTI -Per urology will need PCNL as an outpatient Reviewed U/A from [place] on 04/28 which showed + nitrite, + leukocytes, + bacteria and yeast, and final urine culture resulted on 05/01 showed no growth Urine culture from 04/30 done at [place] growing Shante glabrata, recent UA 05/07 - no growth in 48 hrs. S/p PO Diflucan treatment for total of 2 weeks. -Continue Roxicodone for pain as needed. Pancytopenia HIV negative -s/p multiple cryoprecipitate transfusions -2/2 liver disease and splenomegaly Heme/onc following, stable for dc. -Outpatient follow-up with hematology ETOH Liver cirrhosis/HCV/HBV S/p treatment with Harvoni and recently tenofovir was prescribed with diagnosis of hepatitis B. The patient was apparently not compliant. Previously worked up in [facility] for liver transplant 2016 but unfortunately was not a candidate due to social issues and lack of support. Last EGD and colonoscopy in November 2016, portal hypertensive gastropathy noted on EGD otherwise both exams were normal. -GI recommends follow-up as outpatient in clinic when discharged. Continue lactulose, rifaximin, nadolol. -tenofovir per GI for hepatitis B. -Monitor CMP. Hypotension- asymptomatic- S/t liver disease. -holding parameters of nadolol. -fluids as needed. Hyponatremia- stable. Likely hypervolemic in setting of liver failure. -continue with fluid restriction -monitor periodically. Acute renal failure/Hypokalemia- resolved -hold diuretics. Resume when needed. Appears euvolemic at this time. Hypoglycemia-resolved. S/t poor PO intake. -ADAT. Add Ensure. -dietary consulted. Chronic hepatic encephalopathy -Continue Xifaxan and lactulose. -Slow to respond but otherwise appropriate. -Cognitive evaluation performed by Dr. Mac neuropsychiatry, patient does have medical decision capacity. He will need assistance upon discharge based on having mild cognitive disorder. Generalized weakness Palliative care following/input appreciated. -Continue physical therapy. -Out of bed daily. DVT prophylaxis: avoid chemical anticoagulation given coagulopathy and thrombocytopenia Discharge Planning: patient is homeless. dc planning in progress. (2) Liver cirrhosis Qualifiers: Hepatic cirrhosis type: other cirrhosis Qualified Code(s): K74.69 - Other cirrhosis of liver (4) Hepatitis B infection Qualifiers: Viral hepatitis chronicity: chronic
[2018-06-11] MEDS: Ferrous Sulfate 325 MG Tablet PO SCH ×2 (13:27→17:55)
[2018-06-12] MEDS: Sodium Chloride 0.9% 2 ML Flush BID IV.FLUSH SCH ×2 (09:04→21:00)
[2018-06-12] MEDS: Nadolol 20 MG Tablet PO SCH (09:04)
[2018-06-12] MEDS: Tenofovir 300 MG Tablet PO SCH (09:04)
[2018-06-12] MEDS: rifAXIMin 550 MG Tablet PO SCH ×2 (09:04→20:59)
--- NOTE | 2018-06-12 10:41 | P.PNIM ---
Subjective Interval history: in no acute distress. no new complaints. poor oral intake per RN. Physical Exam Vital signs: Vital Signs 06/11/18 12:00 06/11/18 16:00 06/11/18 20:00 Temperature 99 F 97.9 F 98.0 F Pulse Rate 77 83 78 Respiratory Rate 18 18 18 Blood Pressure 101/51 L 104/64 92/54 L Pulse Oximetry 100 99 97 06/12/18 00:00 06/12/18 08:00 Temperature 98.4 F 97.7 F Pulse Rate 79 80 Respiratory Rate 18 14 Blood Pressure 96/52 L 100/50 L Pulse Oximetry 99 100 Intake & Output 06/11/18 06/12/18 06/12/18 18:59 06:59 18:59 Output Total 200 / 200 Balance -200 / -200 Weight 64.9 kg Output: Urine 200 / 200 Other: # Voids 2 Date of Last Bowel Movement 06/11/18 # Bowel Movements 2 - Constitutional no acute distress - Routine Respiratory Exam Present: CTA bilaterally - Routine Cardiovascular Exam Present: RRR - Routine Abdominal Exam Present: soft - Routine Extremities Exam Comments: no pedal edema. - Routine Neurological Exam Present: alert Results - Labs CBC & Chem 7: 06/09/18 07:13 06/09/18 07:13 Assessment and Plan - Assessment (1) Encephalopathy Code(s): G93.40 - Encephalopathy, unspecified Status: Acute (2) Liver cirrhosis Code(s): K74.60 - Unspecified cirrhosis of liver Status: Acute (3) Hep C w/o coma, chronic Code(s): B18.2 - Chronic viral hepatitis C Status: Chronic (4) Hepatitis B infection Code(s): B19.10 - Unspecified viral hepatitis B without hepatic coma Status: Acute - Plan This is a 58 y/o male with history of Hep B, Hep C, and liver cirrhosis admitted on 04/29 after being transferred from [facility] for staghorn renal calculus complicated by UTI. Urology deemed no surgical intervention needed but will need a PCNL in the future as an outpatient. Now pending placement. Nephrolithiasis with UTI -Per urology will need PCNL as an outpatient Reviewed U/A from [place] on 04/28 which showed + nitrite, + leukocytes, + bacteria and yeast, and final urine culture resulted on 05/01 showed no growth Urine culture from 04/30 done at [place] growing Shante glabrata, recent UA 05/07 - no growth in 48 hrs. S/p PO Diflucan treatment for total of 2 weeks. -Continue Roxicodone for pain as needed. Pancytopenia HIV negative -s/p multiple cryoprecipitate transfusions -2/2 liver disease and splenomegaly Heme/onc following, stable for dc. -Outpatient follow-up with hematology ETOH Liver cirrhosis/HCV/HBV S/p treatment with Harvoni and recently tenofovir was prescribed with diagnosis of hepatitis B. The patient was apparently not compliant. Previously worked up in [facility] for liver transplant 2016 but unfortunately was not a candidate due to social issues and lack of support. Last EGD and colonoscopy in November 2016, portal hypertensive gastropathy noted on EGD otherwise both exams were normal. -GI recommends follow-up as outpatient in clinic when discharged. Continue lactulose, rifaximin, nadolol. -tenofovir per GI for hepatitis B. -Monitor CMP. Hypotension- asymptomatic- S/t liver disease. -holding parameters of nadolol. -fluids as needed. Hyponatremia- stable. Likely hypervolemic in setting of liver failure. -continue with fluid restriction -monitor periodically. Acute renal failure/Hypokalemia- resolved -hold diuretics. Resume when needed. Appears euvolemic at this time. Hypoglycemia-resolved. S/t poor PO intake. -ADAT. Added Ensure. -dietary reconsulted. Chronic hepatic encephalopathy -Continue Xifaxan and lactulose. -Slow to respond but otherwise appropriate. -Cognitive evaluation performed by Dr. Mac neuropsychiatry, patient does have medical decision capacity. He will need assistance upon discharge based on having mild cognitive disorder. Generalized weakness Palliative care following/input appreciated. -Continue physical therapy. -Out of bed daily. DVT prophylaxis: avoid chemical anticoagulation given coagulopathy and thrombocytopenia Discharge Planning: patient is homeless. dc planning in progress. (2) Liver cirrhosis Qualifiers: Hepatic cirrhosis type: other cirrhosis Qualified Code(s): K74.69 - Other cirrhosis of liver (4) Hepatitis B infection Qualifiers: Viral hepatitis chronicity: chronic
[2018-06-12] MEDS: Ferrous Sulfate 325 MG Tablet PO SCH ×2 (12:39→19:04)
--- NOTE | 2018-06-12 15:50 | P.DIET ---
Nutritional Evaluation Type of nutrition evaluation: initial Nutrition screening: [facility] Screening comments: 06/12/18 [facility] Poor PO Intake Subjective Subjective Comments: Pt does not care for the Ensure Enlive and he does not care for Estefany Shaffer. Pt says he is willing to try [employer] and he is receptive to receiving yogurt and peanut butter as a snack daily. Pt nods his head "yes" when asked if he feels like he has lost his appetite. Pt is edentulous. Objective - Diagnosis Kidney Stone, UTI, Jaundice, Liver Failure, Hep C - Objective % IBW: 83 Body Weight Used for Calculations: Actual (64.9 kg) Energy Needs - Lower Range (kCal/kg): 33 Energy Needs - Upper Range (kCal/kg): 38 Lower Limit kCal/kg (kCals): 2,142 Upper Limit kCal/kg (kCals): 2,459 Lower Limit Protein Factor (Grams per Kg): 1.3 Upper Limit Protein Factor (Grams per Kg): 1.6 Lower Protein Needs (Protein): 84 Upper Protein Needs (Protein): 104 Dietitian Reviewed in Medical Record: Current diet, Curent medications, Intake & Output, Labs, Medical history Diet Order: Regular 1200ml fluid restriction Objective Comments: PMH includes: Hep C, Hep B, Kidney Stone, Liver disease; homelessness Ammonis 43(05/31), Na 131 Meds Include: Zinc Sulfate, Protonix, Xifaxin, Lactulose +2BM Feeding - Current PO Supplement Current Supplement: Ensure Enlive Current Frequency of Supplement: Three times a day Current kCals Provided by Supplement: 350 Current Protein Provided by Supplement: 20 Assessment Assessment: Pt is at nutritional risk r/t poor po intake and wt loss since admission here to current wt of 12.1kg(27-lb). Enlive TID per MD and pt does not care for this. Plan to TRIAL [employer] TID(= 230 kcal and 13g protein per serving). Send Yogurt BID and A daily snack. Consider an appetite stimulant, if medically appropriate. Labs reviewed-05/31 ammonia noted-pt is refusing lactulose. Dietitian following. Recommendations: 1. Enlive supplement TID-pt does not care for 2. Plan to TRIAL [employer] TID 3. Send Yogurt BID and A daily snack 4. Consider an appetite stimulant, if medically appropriate Dietitian to Monitor: Lab values, Electrolytes, Liver enzymes, Supplement acceptance, Intake & Output, Diet tolerance, Weight change, PO Intake, Medical course
[2018-06-13] MEDS: Nadolol 20 MG Tablet PO SCH (08:21)
[2018-06-13] MEDS: Tenofovir 300 MG Tablet PO SCH (08:21)
[2018-06-13] MEDS: rifAXIMin 550 MG Tablet PO SCH ×2 (08:21→20:16)
[2018-06-13] MEDS: Sodium Chloride 0.9% 2 ML Flush BID IV.FLUSH SCH ×2 (08:21→20:16)
--- NOTE | 2018-06-13 09:10 | P.PNIM ---
Subjective Interval history: in no acute distress. clinically no change. Physical Exam Vital signs: Vital Signs 06/12/18 12:00 06/12/18 16:00 06/12/18 20:00 Temperature 97.9 F 98.0 F 98.0 F Pulse Rate 57 L 56 L 57 L Respiratory Rate 14 14 17 Blood Pressure 85/54 L 83/53 L 86/52 L Pulse Oximetry 100 99 100 06/13/18 00:00 06/13/18 08:00 Temperature 98.3 F 98.1 F Pulse Rate 64 78 Respiratory Rate 18 14 Blood Pressure 84/47 L 83/48 L Pulse Oximetry 98 98 Intake & Output 06/12/18 06/13/18 06/13/18 18:59 06:59 18:59 Intake Total 480 / 480 300 / 300 Output Total 150 / 150 Balance 330 / 330 300 / 300 Weight 63.1 kg Intake: Oral 480 / 480 300 / 300 Output: Urine 150 / 150 Other: # Voids 2 - Constitutional no acute distress - Routine Respiratory Exam Present: CTA bilaterally - Routine Cardiovascular Exam Present: RRR - Routine Abdominal Exam Present: soft - Routine Extremities Exam Comments: no pedal edema. - Routine Neurological Exam Present: alert Results - Labs CBC & Chem 7: 06/09/18 07:13 06/09/18 07:13 Assessment and Plan - Assessment (1) Encephalopathy Code(s): G93.40 - Encephalopathy, unspecified Status: Acute (2) Liver cirrhosis Code(s): K74.60 - Unspecified cirrhosis of liver Status: Acute (3) Hep C w/o coma, chronic Code(s): B18.2 - Chronic viral hepatitis C Status: Chronic (4) Hepatitis B infection Code(s): B19.10 - Unspecified viral hepatitis B without hepatic coma Status: Acute - Plan This is a 58 y/o male with history of Hep B, Hep C, and liver cirrhosis admitted on 04/29 after being transferred from [facility] for staghorn renal calculus complicated by UTI. Urology deemed no surgical intervention needed but will need a PCNL in the future as an outpatient. Now pending placement. Nephrolithiasis with UTI -Per urology will need PCNL as an outpatient Reviewed U/A from [place] on 04/28 which showed + nitrite, + leukocytes, + bacteria and yeast, and final urine culture resulted on 05/01 showed no growth Urine culture from 04/30 done at [place] growing Shante glabrata, recent UA 05/07 - no growth in 48 hrs. S/p PO Diflucan treatment for total of 2 weeks. -Continue Roxicodone for pain as needed. Pancytopenia HIV negative -s/p multiple cryoprecipitate transfusions -2/2 liver disease and splenomegaly Heme/onc following, stable for dc. -Outpatient follow-up with hematology ETOH Liver cirrhosis/HCV/HBV S/p treatment with Harvoni and recently tenofovir was prescribed with diagnosis of hepatitis B. The patient was apparently not compliant. Previously worked up in [facility] for liver transplant 2016 but unfortunately was not a candidate due to social issues and lack of support. Last EGD and colonoscopy in November 2016, portal hypertensive gastropathy noted on EGD otherwise both exams were normal. -GI recommends follow-up as outpatient in clinic when discharged. Continue lactulose, rifaximin, nadolol. -tenofovir per GI for hepatitis B. -Monitor CMP. Hypotension- asymptomatic- S/t liver disease. -hold nadolol for now. -NS today. -continue to monitor. Hyponatremia- stable. Likely hypervolemic in setting of liver failure. -continue with fluid restriction -monitor periodically. Acute renal failure/Hypokalemia- resolved -hold diuretics. Resume when needed. Appears euvolemic at this time. Hypoglycemia-resolved. S/t poor PO intake. -ADAT. Added Ensure. -dietary consult appreciated. -will start on megace Chronic hepatic encephalopathy -Continue Xifaxan and lactulose. -Slow to respond but otherwise appropriate. -Cognitive evaluation performed by Dr. Mac neuropsychiatry, patient does have medical decision capacity. He will need assistance upon discharge based on having mild cognitive disorder. Generalized weakness Palliative care following/input appreciated. -Continue physical therapy. -Out of bed daily. DVT prophylaxis: avoid chemical anticoagulation given coagulopathy and thrombocytopenia Discharge Planning: patient is homeless. dc planning in progress. (2) Liver cirrhosis Qualifiers: Hepatic cirrhosis type: other cirrhosis Qualified Code(s): K74.69 - Other cirrhosis of liver (4) Hepatitis B infection Qualifiers: Viral hepatitis chronicity: chronic
[2018-06-13] MEDS ORDERED: Sodium Chlor 0.9% Inj 250 ML IV.SIG SCH ×2 (10:00→14:00)
[2018-06-13] MEDS: Ferrous Sulfate 325 MG Tablet PO SCH ×2 (12:52→17:02)
[2018-06-13] MEDS ORDERED: Sodium Chlor 0.9% Inj 500 ML IV.SIG SCH (14:26)
[2018-06-13 15:34] LABS: Baso % (Auto) 0.3 % (0.0-2.0); Eos # (Auto) 0.1 th/mm3 (0.0-0.4); Eos % (Auto) 1.6 % (0.0-4.0); Hematocrit 27.4 % (39.0-51.0); Hemoglobin 9.5 gm/dL (13.0-17.0); Lymph # (Auto) 0.9 th/mm3 (1.0-4.8); Lymph % (Auto) 18.1 % (9.0-44.0); Mean Corpuscular HGB Conc 34.7 % (32.0-36.0); Mean Corpuscular Hemoglobin 40.2 pg (27.0-34.0); Mean Corpuscular Volume 115.7 fL (80.0-100.0); Mean Platelet Volume 9.1 fL (7.0-11.0); Mono # (Auto) 0.4 th/mm3 (0.0-0.9); Mono % (Auto) 8.2 % (0.0-8.0); Neut # (Auto) 3.6 th/mm3 (1.8-7.7); Neut % (Auto) 71.8 % (16.0-70.0); Platelet Count 61 th/mm3 (150-450); Red Blood Count 2.37 mil/mm3 (4.50-5.90); Red Cell Distribution Width 23.3 % (11.6-17.2)
[2018-06-13 15:46] LABS: Carbon Dioxide 28.3 meq/L (21.0-32.0); Potassium 4.3 meq/L (3.5-5.1)
[2018-06-13 16:17] LABS: Ovalocytes 1+
[2018-06-13 16:18] LABS: Platelet Morphology Normal (Normal)
[2018-06-13] MEDS ORDERED: Dextrose 5%/NaCl 0.45% Inj 500 ML IV.SIG ONE ×2 (20:05→22:26)
[2018-06-13] MEDS ORDERED: Dextrose 5%/NaCl 0.9% Inj 1,000 ML IV.CONT SCH (22:30)
--- NOTE | 2018-06-14 08:08 | P.PNIM ---
Subjective Interval history: in no acute distress. resting comfortably with no chest pain/ sob/ pain. no fever. reportedly he was found hypotensive last night and transferred to ICU- however upon arrival to the unit he wasn't hypotensive. d/w the RN and no acute issues over night. Physical Exam Vital signs: Vital Signs 06/13/18 12:00 06/13/18 13:05 06/13/18 14:28 Temperature 97.9 F Pulse Rate 115 H 60 Respiratory Rate 16 Blood Pressure 86/49 L 82/54 L Pulse Oximetry 95 06/13/18 16:00 06/13/18 18:31 06/13/18 20:00 Temperature 98.3 F 97.9 F Pulse Rate 61 64 56 L Respiratory Rate 14 16 Blood Pressure 84/48 L 119/76 72/47 L Pulse Oximetry 98 06/13/18 21:38 06/14/18 03:07 06/14/18 03:10 Temperature Pulse Rate 70 54 L 60 Respiratory Rate 18 16 Blood Pressure 79/49 L 77/38 L 72/49 L Pulse Oximetry 60 L 51 L 06/14/18 03:11 06/14/18 03:12 06/14/18 03:15 Temperature Pulse Rate 55 L 56 L 55 L Respiratory Rate 24 23 15 Blood Pressure 70/42 L 70/42 L 70/45 L Pulse Oximetry 54 L 74 L 60 L 06/14/18 03:31 06/14/18 03:32 06/14/18 03:43 Temperature Pulse Rate 54 L 62 117 H Respiratory Rate 21 20 18 Blood Pressure 73/42 L 80/50 L 89/57 L Pulse Oximetry 64 L 65 L 91 L 06/14/18 03:45 06/14/18 03:56 06/14/18 04:00 Temperature 97.4 F L Pulse Rate 104 H 70 52 L Respiratory Rate 16 22 12 Blood Pressure 86/54 L 97/55 L 92/54 L Pulse Oximetry 88 L 88 L 97 06/14/18 04:15 06/14/18 04:30 06/14/18 05:00 Temperature Pulse Rate 51 L 53 L 52 L Respiratory Rate 8 L 10 L 18 Blood Pressure 95/60 L 89/53 L Pulse Oximetry 100 100 90 L 06/14/18 05:01 06/14/18 05:16 06/14/18 05:30 Temperature Pulse Rate 52 L 52 L 52 L Respiratory Rate 23 25 H 26 H Blood Pressure 103/56 L 101/51 L 89/55 L Pulse Oximetry 100 100 100 06/14/18 05:45 06/14/18 05:54 06/14/18 06:00 Temperature Pulse Rate 167 H 73 52 L Respiratory Rate 19 20 9 L Blood Pressure 67/34 L 83/51 L 72/52 L Pulse Oximetry 94 L 90 L 97 06/14/18 06:30 06/14/18 06:43 06/14/18 06:58 Temperature Pulse Rate 53 L 54 L 89 Respiratory Rate 21 11 L 25 H Blood Pressure 68/47 L 45/28 L 108/54 L Pulse Oximetry 98 100 97 06/14/18 07:00 06/14/18 07:01 06/14/18 07:31 Temperature Pulse Rate 128 H 55 L 55 L Respiratory Rate 26 H 16 14 Blood Pressure 160/70 H 118/51 L Pulse Oximetry 99 99 100 Intake & Output 06/13/18 06/14/18 06/14/18 18:59 06:59 18:59 Intake Total 250 / 250 1870 / 1870 Balance 250 / 250 1870 / 1870 Weight 63.5 kg Intake: IV 250 / 250 1750 / 1750 D5W-1/2 NS Inj 500 ML @ Wide 1000 / 1000 Open IV.SIG .Q0M ONE Rx#: [id number] NS Inj 250 ML @ 500 mls/hr IV. 250 / 250 250 / 250 SIG BOLUS NIRAJ Rx#:[id number] NS Inj 500 ML @ 1000 mls/hr IV. 500 / 500 SIG BOLUS NIRAJ Rx#:[id number] Oral 120 / 120 Other: # Incontinent Voids 2 Date of Last Bowel Movement 06/14/18 # Bowel Movements 3 - Constitutional no acute distress - Routine Respiratory Exam Present: CTA bilaterally - Routine Cardiovascular Exam Present: RRR - Routine Abdominal Exam Present: soft - Routine Extremities Exam Comments: no pedal edema. - Routine Neurological Exam Present: alert Results - Labs CBC & Chem 7: 06/13/18 15:02 06/13/18 15:02 Laboratory Results - last 24 hr 06/13/18 06/13/18 06/13/18 15:02 15:02 15:02 WBC 5.0 RBC 2.37 L Hgb 9.5 L Hct 27.4 L MCV 115.7 H MCH 40.2 H MCHC 34.7 RDW 23.3 H Plt Count 61 L MPV 9.1 Prelim Diff (Auto) Slide review pending Neut % (Auto) 71.8 H Lymph % (Auto) 18.1 [place] % (Auto) 8.2 H Eos % (Auto) 1.6 Baso % (Auto) 0.3 Neut # (Auto) 3.6 Lymph # (Auto) 0.9 L [place] # (Auto) 0.4 Eos # (Auto) 0.1 Baso # (Auto) 0.0 WBC Differential . Diff Scan Auto diff confirmed Differential Comment . Platelet Estimate Low L Platelet Morphology Normal Ovalocytes 1+ H Keratocytes Occ H Sodium 131 L Potassium 4.3 Chloride 96 L Carbon Dioxide 28.3 Anion Gap 7 BUN 21 H Creatinine 0.93 Estimated GFR 84 L Random Glucose 71 L Lactic Acid 2.3 H Calcium 8.0 L Nasal Screen MRSA (PCR) 06/13/18 23:55 WBC RBC Hgb Hct MCV MCH MCHC RDW Plt Count MPV Prelim Diff (Auto) Neut % (Auto) Lymph % (Auto) [place] % (Auto) Eos % (Auto) Baso % (Auto) Neut # (Auto) Lymph # (Auto) [place] # (Auto) Eos # (Auto) Baso # (Auto) WBC Differential Diff Scan Differential Comment Platelet Estimate Platelet Morphology Ovalocytes Keratocytes Sodium Potassium Chloride Carbon Dioxide Anion Gap BUN Creatinine Estimated GFR Random Glucose Lactic Acid Calcium Nasal Screen MRSA (PCR) [place] detected Assessment and Plan - Assessment (1) Encephalopathy Code(s): G93.40 - Encephalopathy, unspecified Status: Acute (2) Liver cirrhosis Code(s): K74.60 - Unspecified cirrhosis of liver Status: Acute (3) Hep C w/o coma, chronic Code(s): B18.2 - Chronic viral hepatitis C Status: Chronic (4) Hepatitis B infection Code(s): B19.10 - Unspecified viral hepatitis B without hepatic coma Status: Acute - Plan This is a 58 y/o male with history of Hep B, Hep C, and liver cirrhosis admitted on 04/29 after being transferred from [facility] for staghorn renal calculus complicated by UTI. Urology deemed no surgical intervention needed but will need a PCNL in the future as an outpatient. Now pending placement. patient was transferred to ICU last night for hypotension- although when it was checked manually upon arrival to ICU , he was normotensive. Nephrolithiasis with UTI -Per urology will need PCNL as an outpatient Urine culture from 04/30 done at [place] growing Shante glabrata, recent UA 05/07 - no growth in 48 hrs. S/p PO Diflucan treatment for total of 2 weeks. -Continue Roxicodone for pain as needed. Pancytopenia HIV negative -s/p multiple cryoprecipitate transfusions -2/2 liver disease and splenomegaly evaluated by Heme/onc , stable for dc. -Outpatient follow-up with hematology ETOH Liver cirrhosis/HCV/HBV S/p treatment with Harvoni and recently tenofovir was prescribed with diagnosis of hepatitis B. The patient was apparently not compliant. Previously worked up in [facility] for liver transplant 2016 but unfortunately was not a candidate due to social issues and lack of support. Last EGD and colonoscopy in November 2016, portal hypertensive gastropathy noted on EGD otherwise both exams were normal. -GI recommends follow-up as outpatient in clinic when discharged. Continue lactulose, rifaximin.Nadolol on hold due to low-normal BP's. -tenofovir per GI for hepatitis B. -Monitor CMP. low-normal BP's- asymptomatic- S/t liver disease. -hold nadolol for now. -continue to monitor. -BP needs to be checked ' manually". -will stop IV fluid. Hyponatremia- stable. Likely hypervolemic in setting of liver failure. -continue with fluid restriction -monitor periodically. Acute renal failure/Hypokalemia- resolved -hold diuretics. Resume when needed. Appears euvolemic at this time. Hypoglycemia-resolved. poor PO intake. -ADAT. Added Ensure. -dietary consult appreciated. -started on megace Chronic hepatic encephalopathy -Continue Xifaxan and lactulose. -Slow to respond but otherwise appropriate. -Cognitive evaluation performed by Dr. Mac neuropsychiatry, patient does have medical decision capacity. He will need assistance upon discharge based on having mild cognitive disorder. Generalized weakness Palliative care following/input appreciated. -Continue physical therapy. -Out of bed daily. DVT prophylaxis: avoid chemical anticoagulation given coagulopathy and thrombocytopenia transfer to floor this afternoon if stable. Discharge Planning: patient is homeless. dc planning in progress. (2) Liver cirrhosis Qualifiers: Hepatic cirrhosis type: other cirrhosis Qualified Code(s): K74.69 - Other cirrhosis of liver (4) Hepatitis B infection Qualifiers: Viral hepatitis chronicity: chronic
[2018-06-14] MEDS: Sodium Chloride 0.9% 2 ML Flush BID IV.FLUSH SCH ×2 (09:41→23:02)
[2018-06-14] MEDS: Tenofovir 300 MG Tablet PO SCH (09:41)
[2018-06-14] MEDS: rifAXIMin 550 MG Tablet PO SCH ×2 (09:41→23:02)
[2018-06-14] MEDS: Ferrous Sulfate 325 MG Tablet PO SCH ×2 (12:43→17:17)
[2018-06-14] MEDS ORDERED: Sodium Chlor 0.9% Inj 250 ML IV.SIG ONE (13:00)
[2018-06-15] MEDS: Tenofovir 300 MG Tablet PO SCH (10:16)
[2018-06-15] MEDS: rifAXIMin 550 MG Tablet PO SCH ×2 (10:17→23:57)
[2018-06-15] MEDS: Sodium Chloride 0.9% 2 ML Flush BID IV.FLUSH SCH ×2 (10:18→23:59)
[2018-06-15] MEDS: Ferrous Sulfate 325 MG Tablet PO SCH ×2 (12:45→18:40)
--- NOTE | 2018-06-15 15:18 | P.PNIM ---
Subjective Interval history: Patient sleepy. States that he has no complaints in that he is not any pain. Physical Exam Vital signs: Last Vital Signs Temp 98.6 F 06/15/18 12:00 Pulse 70 06/15/18 12:00 Resp 17 06/15/18 12:00 BP 84/54 L 06/15/18 12:00 Pulse Ox 99 06/15/18 12:00 Intake & Output 06/13/18 06/14/18 06/15/18 06/16/18 06:59 06:59 06:59 06:59 Intake Total 780 / 780 2119 / 2119 1370 / 1370 Output Total 150 / 150 150 / 150 Balance 630 / 630 2119 / 2119 1220 / 1220 Weight 63.1 kg 63.5 kg 67.2 kg Narrative: GENERAL: Chronically ill appearing. SKIN: Warm and dry. Jaundiced. CARDIOVASCULAR: Regular rate and rhythm. RESPIRATORY: No accessory muscle use. Clear to auscultation. Breath sounds equal bilaterally. GASTROINTESTINAL: Abdomen soft, non-tender, nondistended. MUSCULOSKELETAL: Extremities without clubbing, cyanosis, or edema. No obvious deformities. NEUROLOGICAL: Patient sleepy did not want to cooperate during my exam PSYCH: Flat affect. Urinary Catheter Management Condom: Cath placed during this visit: no Results Labs CBC & Chem 7: 06/13/18 15:02 06/13/18 15:02 Assessment and Plan (1) Encephalopathy: Code(s): G93.40 - Encephalopathy, unspecified Status: Acute (2) Liver cirrhosis: Code(s): K74.60 - Unspecified cirrhosis of liver Status: Acute (3) Hep C w/o coma, chronic: Code(s): B18.2 - Chronic viral hepatitis C Status: Chronic (4) Hepatitis B infection: Code(s): B19.10 - Unspecified viral hepatitis B without hepatic coma Status: Acute Plan This is a 58 y/o male with history of Hep B, Hep C, and liver cirrhosis admitted on 04/29 after being transferred from [facility] for staghorn renal calculus complicated by UTI. Urology deemed no surgical intervention needed but will need a PCNL in the future as an outpatient. Now pending placement. Nephrolithiasis with UTI -Per urology will need PCNL as an outpatient Urine culture from 04/30 done at [place] growing Shante glabrata, recent UA 05/07 - no growth in 48 hrs. S/p PO Diflucan treatment for total of 2 weeks. -Continue Roxicodone for pain as needed. Pancytopenia HIV negative -s/p multiple cryoprecipitate transfusions -2/2 liver disease and splenomegaly evaluated by Heme/onc , stable for dc. -Outpatient follow-up with hematology ETOH Liver cirrhosis/HCV/HBV S/p treatment with Harvoni and recently tenofovir was prescribed by GI with diagnosis of hepatitis B. The patient was apparently not compliant. Previously worked up in [facility] for liver transplant 2016 but unfortunately was not a candidate due to social issues and lack of support. Last EGD and colonoscopy in November 2016, portal hypertensive gastropathy noted on EGD otherwise both exams were normal. -GI recommends follow-up as outpatient in clinic when discharged. Continue lactulose, rifaximin.Nadolol on hold due to low-normal BP's. -tenofovir per GI for hepatitis B. -Monitor CMP. low-normal BP's- asymptomatic- S/t liver disease. -hold nadolol for now. -continue to monitor. -BP needs to be checked ' manually". Hyponatremia- stable. Likely hypervolemic in setting of liver failure. -continue with fluid restriction -monitor periodically. Acute renal failure/Hypokalemia- resolved -hold diuretics. Resume when needed. Appears euvolemic at this time. Hypoglycemia-resolved. poor PO intake. -ADAT. Added Ensure. -dietary consult appreciated. -started on megace Chronic hepatic encephalopathy -Continue Xifaxan and lactulose. -Slow to respond but otherwise appropriate. -Cognitive evaluation performed by Dr. Mac neuropsychiatry, patient does have medical decision capacity. He will need assistance upon discharge based on having mild cognitive disorder. Generalized weakness Palliative care following/input appreciated. -Continue physical therapy. -Out of bed daily. DVT prophylaxis: avoid chemical anticoagulation given coagulopathy and thrombocytopenia Discharge Planning: CM assist with discharge planning, Progress Note: Quality VTE Deep Vein Thrombosis/Pulmonary Embolism Present on Admission: No _ (1) Hepatitis B infection Qualifiers: Hepatic coma status: Hepatitis delta agent presence: Viral hepatitis chronicity: chronic (2) Liver cirrhosis Qualifiers: Ascites presence: Hepatic cirrhosis type: other cirrhosis Qualified Code(s) : K74.69 - Other cirrhosis of liver
[2018-06-16] MEDS: Tenofovir 300 MG Tablet PO SCH (08:47)
[2018-06-16] MEDS: rifAXIMin 550 MG Tablet PO SCH ×2 (08:47→21:34)
[2018-06-16] MEDS: Sodium Chloride 0.9% 2 ML Flush BID IV.FLUSH SCH ×3 (09:16→21:34)
[2018-06-16] MEDS: Ferrous Sulfate 325 MG Tablet PO SCH ×2 (12:26→18:09)
--- NOTE | 2018-06-16 14:37 | P.PNIM ---
Subjective Interval history: He feels weak and actually peed over that bad. No other concerns at this time. Physical Exam Vital signs: Last Vital Signs Temp 97.6 F 06/16/18 12:00 Pulse 66 06/16/18 12:00 Resp 20 06/16/18 12:00 BP 86/52 L 06/16/18 12:00 Pulse Ox 100 06/16/18 12:00 Intake & Output 06/14/18 06/15/18 06/16/18 06/17/18 06:59 06:59 06:59 06:59 Intake Total 2120 / 2120 1370 / 1370 240 / 240 Output Total 150 / 150 Balance 0 / 0 1220 / 1220 240 / 240 Weight 63.5 kg 67.2 kg 67.3 kg Narrative: GENERAL: Chronically ill appearing in no acute distress. SKIN: Warm and dry. Jaundiced. CARDIOVASCULAR: Regular rate and rhythm. RESPIRATORY: No accessory muscle use. Clear to auscultation. Breath sounds equal bilaterally. GASTROINTESTINAL: Abdomen soft, non-tender, nondistended. MUSCULOSKELETAL: Extremities without clubbing, cyanosis, or edema. No obvious deformities. NEUROLOGICAL: Awake and alert to person place and moves bilateral upper and lower extremities. PSYCH: Flat affect. Urinary Catheter Management Condom: Cath placed during this visit: no Results Labs CBC & Chem 7: 06/13/18 15:02 06/13/18 15:02 Assessment and Plan (1) Encephalopathy: Code(s): G93.40 - Encephalopathy, unspecified Status: Acute (2) Liver cirrhosis: Code(s): K74.60 - Unspecified cirrhosis of liver Status: Acute (3) Hep C w/o coma, chronic: Code(s): B18.2 - Chronic viral hepatitis C Status: Chronic (4) Hepatitis B infection: Code(s): B19.10 - Unspecified viral hepatitis B without hepatic coma Status: Acute Plan This is a 58 y/o male with history of Hep B, Hep C, and liver cirrhosis admitted on 04/29 after being transferred from [facility] for staghorn renal calculus complicated by UTI. Urology deemed no surgical intervention needed but will need a PCNL in the future as an outpatient. Now pending placement as patient is currently homeless. Nephrolithiasis with UTI -Per urology will need PCNL as an outpatient Urine culture from 04/30 done at [place] growing Shante glabrata, recent UA 05/07 - no growth in 48 hrs. S/p PO Diflucan treatment for total of 2 weeks. -Continue Roxicodone for pain as needed. Pancytopenia HIV negative -s/p multiple cryoprecipitate transfusions -2/2 liver disease and splenomegaly evaluated by Heme/onc , stable for dc. -Outpatient follow-up with hematology ETOH Liver cirrhosis/HCV/HBV S/p treatment with Harvoni and recently tenofovir was prescribed by GI with diagnosis of hepatitis B. The patient was apparently not compliant. Will reconsult GI for them to make recommendations on duration of treatment needed for discharge planning Previously worked up in [facility] for liver transplant 2016 but unfortunately was not a candidate due to social issues and lack of support. Last EGD and colonoscopy in November 2016, portal hypertensive gastropathy noted on EGD otherwise both exams were normal. -GI recommends follow-up as outpatient in clinic when discharged. Continue lactulose, rifaximin.Nadolol on hold due to low-normal BP's. -tenofovir per GI for hepatitis B. -Monitor CMP. Hypotension- asymptomatic- on midodrine S/t liver disease. -hold nadolol for now. -continue to monitor. -BP needs to be checked ' manually". Hyponatremia- stable. Likely hypervolemic in setting of liver failure. -continue with fluid restriction -monitor periodically. Acute renal failure/Hypokalemia- resolved -hold diuretics. Resume when needed. Appears euvolemic at this time. Hypoglycemia-resolved. poor PO intake. -ADAT. Added Ensure. -dietary consult appreciated. -started on megace Chronic hepatic encephalopathy -Continue Xifaxan and lactulose. -Slow to respond but otherwise appropriate. -Cognitive evaluation performed by Dr. Mac neuropsychiatry, patient does have medical decision capacity. He will need assistance upon discharge based on having mild cognitive disorder. Generalized weakness Palliative care following/input appreciated. -Continue physical therapy. -Out of bed daily. DVT prophylaxis: avoid chemical anticoagulation given coagulopathy and thrombocytopenia Discharge Planning: CM assist with discharge planning, Progress Note: Quality VTE Deep Vein Thrombosis/Pulmonary Embolism Present on Admission: No _ (1) Liver cirrhosis Qualifiers: Ascites presence: Hepatic cirrhosis type: other cirrhosis Qualified Code(s) : K74.69 - Other cirrhosis of liver (2) Hepatitis B infection Qualifiers: Viral hepatitis chronicity: chronic Hepatic coma status: Hepatitis delta agent presence:
--- NOTE | 2018-06-16 17:18 | P.PNGI ---
Subjective Interval history: Patient laying supine in bed Denies abdominal pain, no ascites noted Reports decreased appetite, denies nausea vomiting Physical Exam Vital signs: Vital Signs 06/15/18 19:00 06/16/18 00:00 06/16/18 04:00 Temperature 97.3 F L 97.3 F L 98.3 F Pulse Rate 68 80 75 Respiratory Rate 18 18 16 Blood Pressure 124/62 98/48 L 95/54 L Pulse Oximetry 99 96 96 06/16/18 08:00 06/16/18 12:00 06/16/18 16:00 Temperature 98.1 F 97.6 F 97.9 F Pulse Rate 66 66 69 Respiratory Rate 16 20 20 Blood Pressure 86/53 L 86/52 L 84/52 L Pulse Oximetry 100 100 97 Intake & Output 06/15/18 06/16/18 06/16/18 18:59 06:59 18:59 Intake Total 240 / 240 Balance 240 / 240 Weight 67.3 kg Intake: Oral 240 / 240 Other: # Incontinent Voids 4 Date of Last Bowel Movement 06/14/18 06/15/18 06/15/18 # Bowel Movements 0 - Constitutional no acute distress - Routine HEENT Exam Head: Present: normocephalic Eye: Present: conjunctival icterus - Routine Respiratory Exam Absent: accessory muscle use - Routine Cardiovascular Exam Present: RRR - Routine Abdominal Exam Present: soft, normoactive bowel sounds. Absent: tenderness, distended, guarding, firm - Routine Extremities Exam Absent: edema - Routine Skin Exam Present: dry, warm, jaundice - Routine Neurological Exam Present: alert - Urinary Catheter Management Condom Cath placed during this visit: no Results - Labs CBC & Chem 7: 06/13/18 15:02 06/13/18 15:02 Assessment and Plan (1) Liver cirrhosis Status: Acute Code(s): K74.60 - Unspecified cirrhosis of liver (2) Hep C w/o coma, chronic Status: Chronic Code(s): B18.2 - Chronic viral hepatitis C - Plan 05/07/18-Liver cirrhosis-most recent labs 05/06/2018 revealed total bilirubin of 7.6 AST of 300 ALT 157 alkaline phosphatase 123 ammonia level 136 albumin 1.6. Discussed liver function with the patient who is aware of worsening values. We will continue to monitor. Chronic hepatitis C/acute hepatitis B-patient with history of chronic hepatitis C currently restarted on antiviral for same (Tenofovir). Patient denies any known reason for pablo acute hepatitis B. Discussed precautions with patient as well as risk factors and he verbalizes understanding. 05/08/2018 patient appears to have slow gradual decline as far as his mental status and some mild to moderate anxiety today. Some nausea and vomiting at lunchtime acute onset. Discussed again with patient his liver disease and the need for medical management even when he is out of the hospital. Current ammonia level 95 today albumin 1.5, bilirubin 7.8, AST 260 ALT 145, alkaline phosphatase 119 PT/INR 1.8. Noted mild trend of bilirubin increasing but liver enzymes mild decrease. Discuss with patient his support system when getting out of the hospital and states that he is supposed to talk to case management sometime today. States he does have a brother who does not seem to understand how serious his condition is which worries him as far. Palliative care team on board which might could assist with contact to brother if patient agrees. According to the record patient will be going home with a female friend who will assist him. States last bowel movement this past p.m. so questionable effectiveness of lactulose. Overall poor prognosis and general decline noted. Due to patient's portal hypertensive gastropathy, added further medication management to his regimen Encephalopathy appears to be worsened today. Patient is now on VIREAD 05/09/18-patient awake and alert reported one episode of nausea last evening. Denies same at this time. Denies any obvious bleeding. Discussed plan of care with patient. Patient aware of poor prognosis. Appropriate during exam today. 05/08/2016 hemoglobin 10.6 hematocrit 31.3 total bilirubin 7.8 AST 260 ALT 145 alk phos 119 ammonia level 118. Palliative care consulted and following patient during this hospital course. We will continue to monitor. 06/16/2018 GI has been asked to see this patient regarding history of hepatitis B. Request for recommendations for follow-up care and antiviral medication management post discharge. 06/13/2018 WBC 5.0 hemoglobin 9.5 hematocrit 27.4 platelet count 61. Plan -Follow-up with GI as outpatient post discharge -Lactulose, Xifaxan -Nadolol -Zinc -Tenofovir for hepatitis B-dosage to be determined -Megace for poor appetite -Continue to monitor liver function tests and ammonia level -Poor prognosis-palliative care following -Supportive care This patient has been seen by myself and Dr. Mahoney and this note is written on his behalf - Attending Attestation Dr. Mahoney (1) Liver cirrhosis Qualifiers: Hepatic cirrhosis type: other cirrhosis Qualified Code(s): K74.69 - Other cirrhosis of liver
[2018-06-17] MEDS: rifAXIMin 550 MG Tablet PO SCH ×2 (10:13→21:19)
[2018-06-17] MEDS: Tenofovir 300 MG Tablet PO SCH (10:14)
[2018-06-17] MEDS: Sodium Chloride 0.9% 2 ML Flush BID IV.FLUSH SCH ×2 (10:14→21:19)
--- NOTE | 2018-06-17 12:15 | P.PNIM ---
Subjective Interval history: Refusing to get up to do physical therapy in the room. He says he just does not feel like it. He is just laying in bed and states he has not had much of an appetite as well. Physical Exam Vital signs: Last Vital Signs Temp 98.9 F 06/16/18 20:00 Pulse 65 06/16/18 20:00 Resp 18 06/16/18 20:00 BP 114/51 L 06/16/18 20:00 Pulse Ox 99 06/16/18 20:00 Intake & Output 06/15/18 06/16/18 06/17/18 06/18/18 06:59 06:59 06:59 06:59 Intake Total 1370 / 1370 240 / 240 Output Total 150 / 150 Balance 1220 / 1220 240 / 240 Weight 67.2 kg 67.3 kg 67.2 kg Narrative: GENERAL: Well-developed male in no acute distress. SKIN: Warm and dry. Jaundiced. CARDIOVASCULAR: Regular rate and rhythm. RESPIRATORY: No accessory muscle use. Clear to auscultation. Breath sounds equal bilaterally. GASTROINTESTINAL: Abdomen soft, non-tender, nondistended. MUSCULOSKELETAL: Extremities without clubbing, cyanosis, or edema. No obvious deformities. NEUROLOGICAL: Awake and alert to person place and moves bilateral upper and lower extremities. PSYCH: Flat affect. Urinary Catheter Management Condom: Cath placed during this visit: no Results Labs CBC & Chem 7: 06/13/18 15:02 06/13/18 15:02 Assessment and Plan (1) Encephalopathy: Code(s): G93.40 - Encephalopathy, unspecified Status: Acute (2) Liver cirrhosis: Code(s): K74.60 - Unspecified cirrhosis of liver Status: Acute (3) Hep C w/o coma, chronic: Code(s): B18.2 - Chronic viral hepatitis C Status: Chronic (4) Hepatitis B infection: Code(s): B19.10 - Unspecified viral hepatitis B without hepatic coma Status: Acute Plan This is a 58 y/o male with history of Hep B, Hep C, and liver cirrhosis admitted on 04/29 after being transferred from [facility] for staghorn renal calculus complicated by UTI. Urology deemed no surgical intervention needed but will need a PCNL in the future as an outpatient. Now pending placement as patient is currently homeless. Nephrolithiasis with UTI -Per urology will need PCNL as an outpatient Urine culture from 04/30 done at [place] growing Shante glabrata, recent UA 05/07 - no growth in 48 hrs. S/p PO Diflucan treatment for total of 2 weeks. -Discontinue oxycodone as patient has not been complaining of any pain. Pancytopenia HIV negative -s/p multiple cryoprecipitate transfusions -2/2 liver disease and splenomegaly evaluated by Heme/onc , stable for dc. -Outpatient follow-up with hematology ETOH Liver cirrhosis/HCV/HBV S/p treatment with Harvoni and recently tenofovir was prescribed by GI with diagnosis of hepatitis B. The patient was apparently not compliant. Will reconsult GI for them to make recommendations on duration of treatment needed for discharge planning Previously worked up in [facility] for liver transplant 2016 but unfortunately was not a candidate due to social issues and lack of support. Last EGD and colonoscopy in November 2016, portal hypertensive gastropathy noted on EGD otherwise both exams were normal. -GI recommends follow-up as outpatient in clinic when discharged. Continue lactulose, rifaximin.Nadolol on hold due to low-normal BP's. -tenofovir per GI for hepatitis B. -Monitor CMP. Hypotension- asymptomatic- on midodrine S/t liver disease. -hold nadolol for now. -continue to monitor. -BP needs to be checked ' manually". Hyponatremia- stable. Likely hypervolemic in setting of liver failure. -continue with fluid restriction -monitor periodically. Acute renal failure/Hypokalemia- resolved -hold diuretics. Resume when needed. Appears euvolemic at this time. Hypoglycemia-resolved. poor PO intake. -ADAT. Added Ensure. -dietary consult appreciated. -started on megace Chronic hepatic encephalopathy -Continue Xifaxan and lactulose. -Slow to respond but otherwise appropriate. -Cognitive evaluation performed by Dr. Mac neuropsychiatry, patient does have medical decision capacity. He will need assistance upon discharge based on having mild cognitive disorder. Generalized weakness Palliative care following/input appreciated. -Patient refusing physical therapy. He was counseled -Out of bed daily. Adjustment disorder with flat affect and possible depression-start Lexapro DVT prophylaxis: avoid chemical anticoagulation given coagulopathy and thrombocytopenia Discharge Planning: CM assist with discharge planning, Progress Note: Quality VTE Deep Vein Thrombosis/Pulmonary Embolism Present on Admission: No _ (1) Liver cirrhosis Qualifiers: Ascites presence: Hepatic cirrhosis type: other cirrhosis Qualified Code(s) : K74.69 - Other cirrhosis of liver (2) Hepatitis B infection Qualifiers: Viral hepatitis chronicity: chronic Hepatic coma status: Hepatitis delta agent presence:
[2018-06-17] MEDS: Ferrous Sulfate 325 MG Tablet PO SCH ×2 (12:28→17:49)
--- NOTE | 2018-06-17 13:44 | P.PNGI ---
Subjective Interval history: Very weak in cathartic, attempting to answer only simple questions food sitting on tray no appetite <Cynthia Garcia - Last Filed: 06/17/18 14:19> Physical Exam Vital signs: Vital Signs 06/16/18 16:00 06/16/18 20:00 06/17/18 12:00 Temperature 97.9 F 98.9 F 98.7 F Pulse Rate 69 65 57 L Respiratory Rate 20 18 16 Blood Pressure 84/52 L 114/51 L 89/56 L Pulse Oximetry 97 99 98 Intake & Output 06/16/18 06/17/18 06/17/18 18:59 06:59 18:59 Weight 67.2 kg Other: # Voids 1 Date of Last Bowel Movement 06/15/18 06/15/18 - Constitutional thin, cachectic, disheveled, obtunded - Routine HEENT Exam ENT: Present: mucous membranes dry ( pale sunken cheekbones) - Routine Neck Exam Present: supple - Routine Respiratory Exam Present: distant breath sounds (No obvious wheezing) - Routine Cardiovascular Exam Present: S1 ( or shortness of breath at rest), S2 - Routine Abdominal Exam Present: soft - Urinary Catheter Management Condom Cath placed during this visit: no <Cynthia Garcia - Last Filed: 06/17/18 14:19> Vital signs: Vital Signs 06/17/18 12:00 Temperature 98.7 F Pulse Rate 57 L Respiratory Rate 16 Blood Pressure 89/56 L Pulse Oximetry 98 Intake & Output 06/17/18 06/17/18 06/18/18 06:59 18:59 06:59 Weight 67.2 kg Other: # Voids 1 Date of Last Bowel Movement 06/15/18 06/15/18 - Urinary Catheter Management Condom Cath placed during this visit: no <Chula Mahoney - Last Filed: 06/17/18 20:39> Results - Labs CBC & Chem 7: 06/13/18 15:02 06/13/18 15:02 <Cynthia Garcia - Last Filed: 06/17/18 14:19> - Labs CBC & Chem 7: 06/13/18 15:02 06/13/18 15:02 <Chula Mahoney - Last Filed: 06/17/18 20:39> Assessment and Plan (1) Liver cirrhosis Status: Acute Code(s): K74.60 - Unspecified cirrhosis of liver (2) Hep C w/o coma, chronic Status: Chronic Code(s): B18.2 - Chronic viral hepatitis C - Plan 05/07/18-Liver cirrhosis-most recent labs 05/06/2018 revealed total bilirubin of 7.6 AST of 300 ALT 157 alkaline phosphatase 123 ammonia level 136 albumin 1.6. Discussed liver function with the patient who is aware of worsening values. We will continue to monitor. Chronic hepatitis C/acute hepatitis B-patient with history of chronic hepatitis C currently restarted on antiviral for same (Tenofovir). Patient denies any known reason for pablo acute hepatitis B. Discussed precautions with patient as well as risk factors and he verbalizes understanding. 05/08/2018 patient appears to have slow gradual decline as far as his mental status and some mild to moderate anxiety today. Some nausea and vomiting at lunchtime acute onset. Discussed again with patient his liver disease and the need for medical management even when he is out of the hospital. Current ammonia level 95 today albumin 1.5, bilirubin 7.8, AST 260 ALT 145, alkaline phosphatase 119 PT/INR 1.8. Noted mild trend of bilirubin increasing but liver enzymes mild decrease. Discuss with patient his support system when getting out of the hospital and states that he is supposed to talk to case management sometime today. States he does have a brother who does not seem to understand how serious his condition is which worries him as far. Palliative care team on board which might could assist with contact to brother if patient agrees. According to the record patient will be going home with a female friend who will assist him. States last bowel movement this past p.m. so questionable effectiveness of lactulose. Overall poor prognosis and general decline noted. Due to patient's portal hypertensive gastropathy, added further medication management to his regimen Encephalopathy appears to be worsened today. Patient is now on VIREAD 05/09/18-patient awake and alert reported one episode of nausea last evening. Denies same at this time. Denies any obvious bleeding. Discussed plan of care with patient. Patient aware of poor prognosis. Appropriate during exam today. 05/08/2016 hemoglobin 10.6 hematocrit 31.3 total bilirubin 7.8 AST 260 ALT 145 alk phos 119 ammonia level 118. Palliative care consulted and following patient during this hospital course. We will continue to monitor. 06/16/2018 GI has been asked to see this patient regarding history of hepatitis B. Request for recommendations for follow-up care and antiviral medication management post discharge. WBC 5.0 hemoglobin 9.5 hematocrit 27.4 platelet count 61. 06/17/2018, supportive care, appreciate palliative care input, still full code full aggressive care for now No new labs, patient very weakened and not eating. Again encouraged him to follow-up in the GI office after his discharge. Call GI for any other acute needs Plan Diet as tolerated Continue lactulose, Xifaxan, Nadolol VIREAD 300mg. daily Zofran as needed PPI Monitor labs Supportive care follow-up in the office after discharge if warranted, poor prognosis patient seen per myself and Dr. Mahoney and this note is written on his behalf <Cynthia Garcia - Last Filed: 06/17/18 14:19> (1) Liver cirrhosis Status: Acute Code(s): K74.60 - Unspecified cirrhosis of liver (2) Hep C w/o coma, chronic Status: Chronic Code(s): B18.2 - Chronic viral hepatitis C - Plan Agree with above note, patient has poor prognosis, agree with the dose for hepatitis B treatment, we will follow-up as needed <Chula Mahoney - Last Filed: 06/17/18 20:39> <Cynthia Garcia - Last Filed: 06/17/18 14:19> (1) Liver cirrhosis Qualifiers: Hepatic cirrhosis type: other cirrhosis Qualified Code(s): K74.69 - Other cirrhosis of liver <Chula Mahoney - Last Filed: 06/17/18 20:39> (1) Liver cirrhosis Qualifiers: Hepatic cirrhosis type: other cirrhosis Qualified Code(s): K74.69 - Other cirrhosis of liver
[2018-06-17] MEDS: Escitalopram 10 MG Tablet PO SCH (21:18)
[2018-06-18] MEDS: Sodium Chloride 0.9% 2 ML Flush BID IV.FLUSH SCH ×2 (09:00→21:20)
[2018-06-18] MEDS: rifAXIMin 550 MG Tablet PO SCH ×2 (09:00→21:19)
[2018-06-18] MEDS: Tenofovir 300 MG Tablet PO SCH (09:00)
--- NOTE | 2018-06-18 10:29 | P.PNIM ---
Subjective Interval history: Patient still does not want to get out of bed. States that he is not hungry. No pain at this time. Physical Exam Vital signs: Last Vital Signs Temp 97.6 F 06/18/18 08:00 Pulse 70 06/18/18 08:00 Resp 16 06/18/18 08:00 BP 80/45 L 06/18/18 08:00 Pulse Ox 97 06/18/18 08:00 Intake & Output 06/16/18 06/17/18 06/18/18 06/19/18 06:59 06:59 06:59 06:59 Intake Total 240 / 240 Balance 240 / 240 Weight 67.3 kg 67.2 kg 67.2 kg Narrative: GENERAL: Well-developed male in no acute distress. SKIN: Warm and dry. Jaundiced. CARDIOVASCULAR: Regular rate and rhythm. RESPIRATORY: No accessory muscle use. Clear to auscultation. Breath sounds equal bilaterally. GASTROINTESTINAL: Abdomen soft, non-tender, nondistended. MUSCULOSKELETAL: Extremities without clubbing, cyanosis, or edema. No obvious deformities. NEUROLOGICAL: Awake and alert to person place and moves bilateral upper and lower extremities. PSYCH: Flat affect. Urinary Catheter Management Condom: Cath placed during this visit: no Results Labs CBC & Chem 7: 06/13/18 15:02 06/13/18 15:02 Assessment and Plan (1) Liver cirrhosis: Code(s): K74.60 - Unspecified cirrhosis of liver Status: Acute (2) Hep C w/o coma, chronic: Code(s): B18.2 - Chronic viral hepatitis C Status: Chronic Plan This is a 58 y/o male with history of Hep B, Hep C, and liver cirrhosis admitted on 04/29 after being transferred from [facility] for staghorn renal calculus complicated by UTI. Urology deemed no surgical intervention needed but will need a PCNL in the future as an outpatient. Now pending placement as patient is currently homeless. Continue supportive care await placement. Nephrolithiasis with UTI -Per urology will need PCNL as an outpatient Urine culture from 04/30 done at [place] growing Shante glabrata, recent UA 05/07 - no growth in 48 hrs. S/p PO Diflucan treatment for total of 2 weeks. -Discontinue oxycodone as patient has not been complaining of any pain. Pancytopenia HIV negative -s/p multiple cryoprecipitate transfusions -2/2 liver disease and splenomegaly evaluated by Heme/onc , stable for dc. -Outpatient follow-up with hematology ETOH Liver cirrhosis/HCV/HBV S/p treatment with Harvoni and recently tenofovir was prescribed by GI with diagnosis of hepatitis B. The patient was apparently not compliant. Will reconsult GI for them to make recommendations on duration of treatment needed for discharge planning Previously worked up in [facility] for liver transplant 2016 but unfortunately was not a candidate due to social issues and lack of support. Last EGD and colonoscopy in November 2016, portal hypertensive gastropathy noted on EGD otherwise both exams were normal. -GI recommends follow-up as outpatient in clinic when discharged. Continue lactulose, rifaximin.Nadolol on hold due to low-normal BP's. -tenofovir per GI for hepatitis B. -Monitor CMP. Hypotension- asymptomatic- on midodrine S/t liver disease. -hold nadolol for now. -continue to monitor. -BP needs to be checked ' manually". Hyponatremia- stable. Likely hypervolemic in setting of liver failure. -continue with fluid restriction -monitor periodically. Acute renal failure/Hypokalemia- resolved -hold diuretics. Resume when needed. Appears euvolemic at this time. Hypoglycemia-resolved. poor PO intake. -ADAT. Added Ensure. -dietary consult appreciated. -started on megace Chronic hepatic encephalopathy -Continue Xifaxan and lactulose. -Slow to respond but otherwise appropriate. -Cognitive evaluation performed by Dr. Mac neuropsychiatry, patient does have medical decision capacity. He will need assistance upon discharge based on having mild cognitive disorder. Generalized weakness Palliative care following/input appreciated. -Patient refusing physical therapy. He was counseled -Out of bed daily. Adjustment disorder with flat affect and possible depression-continue Lexapro DVT prophylaxis: avoid chemical anticoagulation given coagulopathy and thrombocytopenia Discharge Planning: CM assist with discharge planning, Progress Note: Quality VTE Deep Vein Thrombosis/Pulmonary Embolism Present on Admission: No _ (1) Liver cirrhosis Qualifiers: Ascites presence: Hepatic cirrhosis type: other cirrhosis Qualified Code(s) : K74.69 - Other cirrhosis of liver
[2018-06-18] MEDS: Ferrous Sulfate 325 MG Tablet PO SCH ×2 (12:00→16:48)
[2018-06-18] MEDS ORDERED: Sod Chloride 0.9% Inj 1,000 ML IV.SIG SCH (14:07)
[2018-06-18] MEDS: Escitalopram 10 MG Tablet PO SCH (21:19)
[2018-06-19] MEDS: Sodium Chloride 0.9% 2 ML Flush BID IV.FLUSH SCH ×2 (09:18→23:04)
[2018-06-19] MEDS: rifAXIMin 550 MG Tablet PO SCH ×2 (09:18→22:13)
[2018-06-19] MEDS: Tenofovir 300 MG Tablet PO SCH (09:18)
--- NOTE | 2018-06-19 09:56 | P.PNIM ---
Subjective Interval history: Patient has no complaints today. More alert and eating breakfast today. Nursing staff states that there is chronic keep him awake during the morning daytime versus having him being awake all night long. Physical Exam Vital signs: Last Vital Signs Temp 96.5 F L 06/19/18 08:00 Pulse 66 06/19/18 08:00 Resp 20 06/19/18 08:00 BP 93/60 L 06/19/18 08:00 Pulse Ox 99 06/19/18 08:00 Intake & Output 06/17/18 06/18/18 06/19/18 06/20/18 06:59 06:59 06:59 06:59 Intake Total 1480 / 1480 Balance 1480 / 1480 Weight 67.2 kg 67.2 kg Narrative: GENERAL: Well-developed male in no acute distress. SKIN: Warm and dry. Jaundiced. CARDIOVASCULAR: Regular rate and rhythm. RESPIRATORY: No accessory muscle use. Clear to auscultation. Breath sounds equal bilaterally. GASTROINTESTINAL: Abdomen soft, non-tender, nondistended. MUSCULOSKELETAL: Extremities without clubbing, cyanosis, or edema. No obvious deformities. NEUROLOGICAL: Awake and alert to person place and moves bilateral upper and lower extremities. PSYCH: Flat affect. Urinary Catheter Management Condom: Cath placed during this visit: no Results Labs CBC & Chem 7: 06/13/18 15:02 06/13/18 15:02 Assessment and Plan (1) Liver cirrhosis: Code(s): K74.60 - Unspecified cirrhosis of liver Status: Acute (2) Hep C w/o coma, chronic: Code(s): B18.2 - Chronic viral hepatitis C Status: Chronic Plan This is a 58 y/o male with history of Hep B, Hep C, and liver cirrhosis admitted on 04/29 after being transferred from [facility] for staghorn renal calculus complicated by UTI. Urology deemed no surgical intervention needed but will need a PCNL in the future as an outpatient. Now pending placement as patient is currently homeless. Continue supportive care await placement. Encourage patient to participate in physical activity and be awake during the daytime. Nephrolithiasis with UTI -Per urology will need PCNL as an outpatient Urine culture from 04/30 done at [place] growing Shante glabrata, recent UA 05/07 - no growth in 48 hrs. S/p PO Diflucan treatment for total of 2 weeks. -Discontinue oxycodone as patient has not been complaining of any pain. Pancytopenia HIV negative -s/p multiple cryoprecipitate transfusions -2/2 liver disease and splenomegaly evaluated by Heme/onc , stable for dc. -Outpatient follow-up with hematology ETOH Liver cirrhosis/HCV/HBV S/p treatment with Harvoni and recently tenofovir was prescribed by GI with diagnosis of hepatitis B. The patient was apparently not compliant. Will reconsult GI for them to make recommendations on duration of treatment needed for discharge planning Previously worked up in [facility] for liver transplant 2016 but unfortunately was not a candidate due to social issues and lack of support. Last EGD and colonoscopy in November 2016, portal hypertensive gastropathy noted on EGD otherwise both exams were normal. -GI recommends follow-up as outpatient in clinic when discharged. Continue lactulose, rifaximin.Nadolol on hold due to low-normal BP's. -tenofovir per GI for hepatitis B. -Monitor CMP. Hypotension- asymptomatic- on midodrine S/t liver disease. -hold nadolol for now. -continue to monitor. -BP needs to be checked " manually" for any significant hypertension readings Hyponatremia- stable. Likely hypervolemic in setting of liver failure. -continue with fluid restriction -monitor periodically. Acute renal failure/Hypokalemia- resolved -hold diuretics. Resume when needed. Appears euvolemic at this time. Hypoglycemia-resolved. poor PO intake. -ADAT. Added Ensure. -dietary consult appreciated. -started on megace Chronic hepatic encephalopathy -Continue Xifaxan and lactulose. -Slow to respond but otherwise appropriate. -Cognitive evaluation performed by Dr. Mac neuropsychiatry, patient does have medical decision capacity. He will need assistance upon discharge based on having mild cognitive disorder. Generalized weakness Palliative care following/input appreciated. -Out of bed daily. Continue physical therapy Adjustment disorder with flat affect and possible depression-continue Lexapro DVT prophylaxis: avoid chemical anticoagulation given coagulopathy and thrombocytopenia Discharge Planning: CM assist with discharge planning, Progress Note: Quality VTE Deep Vein Thrombosis/Pulmonary Embolism Present on Admission: No _ (1) Liver cirrhosis Qualifiers: Ascites presence: Hepatic cirrhosis type: other cirrhosis Qualified Code(s) : K74.69 - Other cirrhosis of liver
[2018-06-19] MEDS: Ferrous Sulfate 325 MG Tablet PO SCH ×2 (13:35→17:59)
--- NOTE | 2018-06-19 13:35 | P.DIET ---
Nutritional Evaluation Type of nutrition evaluation: follow-up [place] [facility] [place]: [place] [facility] [place]18[place]18 [facility] [place] Subjective Subjective Comments: Pt did not eat yesterday. Ate 25% of breakfast today. From previous note: Pt does not care for the Ensure Enlive and he does not care for Might[employer]akes. Pt says he is willing to try [employer] [place] [employer] and he is receptive to receiving yogurt and peanut butter as a snack daily. Pt nods his head "yes" when asked if he feels like he has lost his appetite. Pt is edentulous. Objective - Diagnosis Kidney Stone, UTI, Jaundice, Liver Failure, Hep C - Objective % IBW: 83 Body Weight Used for Calculations: Actual (64.9 kg) Energy Needs - Lower Range (kCal/kg): 33 Energy Needs - Upper Range (kCal/kg): 38 Lower Limit kCal/kg (kCals): 2,142 Upper Limit kCal/kg (kCals): 2,459 Lower Limit Protein Factor (Grams per Kg): 1.3 Upper Limit Protein Factor (Grams per Kg): 1.6 Lower Protein Needs (Protein): 84 Upper Protein Needs (Protein): 104 Dietitian Reviewed in Medical Record: Current diet, Curent medications, Intake & Output, Labs, Medical history Diet Order: Regular 1200ml fluid restriction Objective Comments: PMH includes: Hep C, Hep B, Kidney Stone, Liver disease; homelessness Meds Include: Megace started 06/13 Assessment Assessment: Pt remains at nutritional risk r/t very poor po intake and wt loss since admission. Declines Ensure Enlive. Will continue [employer] [place] [employer] TID ( 230 kcal and 13g protein per serving), yogurt BID and a daily snack. Megace has been started and will hopefully improve appetite. If po intake does not improve and weight loss continues, recommend TFing be considered (if consistent with goals of care). RD following. Recommendations: 1. Enlive supplement d/c'ed 2. Plan to continue [employer] TID 3. Send Yogurt BID and A daily snack 4. Consider TFing to prevent further nutritional depletion Dietitian to Monitor: Lab values, Supplement acceptance, Intake & Output, Diet tolerance, Weight change, PO Intake, Medical course
[2018-06-19] MEDS: Escitalopram 10 MG Tablet PO SCH (22:13)
[2018-06-19] MEDS: Melatonin 5 MG Tablet PO PRN (22:13)
[2018-06-20] MEDS: Tenofovir 300 MG Tablet PO SCH (08:49)
[2018-06-20] MEDS: rifAXIMin 550 MG Tablet PO SCH ×2 (08:49→22:39)
[2018-06-20] MEDS: Sodium Chloride 0.9% 2 ML Flush BID IV.FLUSH SCH ×2 (08:49→22:40)
--- NOTE | 2018-06-20 12:02 | P.PNIM ---
Subjective Interval history: Did not want to eat breakfast this morning. Did not really want to answer my questions. He did eat a large breakfast yesterday but still poor appetite for meals at night. This morning he only wanted to eat applesauce. No complaints of pain at this time. Physical Exam Vital signs: Last Vital Signs Temp 98.0 F 06/20/18 08:00 Pulse 70 06/20/18 08:00 Resp 18 06/20/18 08:36 BP 108/63 06/20/18 08:00 Pulse Ox 98 06/20/18 08:00 Intake & Output 06/18/18 06/19/18 06/20/18 06/21/18 06:59 06:59 06:59 06:59 Intake Total 1480 / 1480 720 / 720 Balance 1480 / 1480 720 / 720 Weight 67.2 kg 62.8 kg Narrative: GENERAL: Well-developed male in no acute distress. SKIN: Warm and dry. Jaundiced. CARDIOVASCULAR: Regular rate and rhythm. RESPIRATORY: No accessory muscle use. Clear to auscultation. Breath sounds equal bilaterally. GASTROINTESTINAL: Abdomen soft, non-tender, nondistended. MUSCULOSKELETAL: Extremities without clubbing, cyanosis, or edema. No obvious deformities. NEUROLOGICAL: Awake and alert to person place and moves bilateral upper and lower extremities. PSYCH: Flat affect. Urinary Catheter Management Condom: Cath placed during this visit: no Results Labs CBC & Chem 7: 06/13/18 15:02 06/13/18 15:02 Assessment and Plan (1) Liver cirrhosis: Code(s): K74.60 - Unspecified cirrhosis of liver Status: Acute (2) Hep C w/o coma, chronic: Code(s): B18.2 - Chronic viral hepatitis C Status: Chronic Plan This is a 58 y/o male with history of Hep B, Hep C, and liver cirrhosis admitted on 04/29 after being transferred from [facility] for staghorn renal calculus complicated by UTI. Urology deemed no surgical intervention needed but will need a PCNL in the future as an outpatient. Now pending placement as patient is currently homeless. Continue supportive care await placement. Encourage patient to participate in physical activity and be awake during the daytime. Encourage p.o. intake. Dietitian was consulted. Nephrolithiasis with UTI -Per urology will need PCNL as an outpatient Urine culture from 04/30 done at [place] growing Shante glabrata, recent UA 05/07 - no growth in 48 hrs. S/p PO Diflucan treatment for total of 2 weeks. -Discontinue oxycodone as patient has not been complaining of any pain. Pancytopenia HIV negative -s/p multiple cryoprecipitate transfusions -2/2 liver disease and splenomegaly evaluated by Heme/onc , stable for dc. -Outpatient follow-up with hematology ETOH Liver cirrhosis/HCV/HBV S/p treatment with Harvoni and recently tenofovir was prescribed by GI with diagnosis of hepatitis B. The patient was apparently not compliant. Will reconsult GI for them to make recommendations on duration of treatment needed for discharge planning [facility] but unfortunately was not a candidate due to social issues and lack of support. Last EGD and colonoscopy in November 2016, portal hypertensive gastropathy noted on EGD otherwise both exams were normal. -GI recommends follow-up as outpatient in clinic when discharged. Continue lactulose, rifaximin.Nadolol on hold due to low-normal BP's. -tenofovir per GI for hepatitis B. -Monitor CMP. Hypotension- asymptomatic- on midodrine S/t liver disease. -hold nadolol for now. -continue to monitor. -BP needs to be checked " manually" for any significant hypertension readings Hyponatremia- stable. Likely hypervolemic in setting of liver failure. -continue with fluid restriction -monitor periodically. Acute renal failure/Hypokalemia- resolved -hold diuretics. Resume when needed. Appears euvolemic at this time. Hypoglycemia-resolved. poor PO intake. -ADAT. Added Ensure. -dietary consult appreciated. -started on megace Chronic hepatic encephalopathy -Continue Xifaxan and lactulose. -Slow to respond but otherwise appropriate. -Cognitive evaluation performed by Dr. Mac neuropsychiatry, patient does have medical decision capacity. He will need assistance upon discharge based on having mild cognitive disorder. Generalized weakness Palliative care following/input appreciated. -Out of bed daily. Continue physical therapy Adjustment disorder with flat affect and possible depression-continue Lexapro DVT prophylaxis: avoid chemical anticoagulation given coagulopathy and thrombocytopenia Discharge Planning: CM assist with discharge planning, Progress Note: Quality VTE Deep Vein Thrombosis/Pulmonary Embolism Present on Admission: No _ (1) Liver cirrhosis Qualifiers: Ascites presence: Hepatic cirrhosis type: other cirrhosis Qualified Code(s) : K74.69 - Other cirrhosis of liver
[2018-06-20] MEDS: Ferrous Sulfate 325 MG Tablet PO SCH ×2 (12:45→17:31)
[2018-06-20] MEDS: Escitalopram 10 MG Tablet PO SCH (22:39)
[2018-06-21] MEDS: rifAXIMin 550 MG Tablet PO SCH ×2 (09:59→20:10)
[2018-06-21] MEDS: Tenofovir 300 MG Tablet PO SCH (09:59)
--- NOTE | 2018-06-21 10:31 | P.PNIM ---
Subjective Interval history: He reports he does not have any appetite does not want to eat. He is refusing me to examine him. Physical Exam Vital signs: Last Vital Signs Temp 97.4 F L 06/21/18 08:00 Pulse 74 06/21/18 08:00 Resp 14 06/21/18 08:00 BP 108/65 06/21/18 08:00 Pulse Ox 99 06/21/18 08:00 Intake & Output 06/19/18 06/20/18 06/21/18 06/22/18 06:59 06:59 06:59 06:59 Intake Total 1480 / 1480 720 / 720 Balance 1480 / 1480 720 / 720 Weight 62.8 kg 62.8 kg Narrative: GENERAL: Well-developed male in no acute distress. SKIN: Warm and dry. Jaundiced. NEUROLOGICAL: Awake and alert to person place and moves bilateral upper and lower extremities spontaneously. PSYCH: Flat affect. He refused to let me examine his heart and lungs today Urinary Catheter Management Condom: Cath placed during this visit: no Results Labs CBC & Chem 7: 06/13/18 15:02 06/13/18 15:02 Assessment and Plan (1) Liver cirrhosis: Code(s): K74.60 - Unspecified cirrhosis of liver Status: Acute (2) Hep C w/o coma, chronic: Code(s): B18.2 - Chronic viral hepatitis C Status: Chronic Plan This is a 58 y/o male with history of Hep B, Hep C, and liver cirrhosis admitted on 04/29 after being transferred from [facility] for staghorn renal calculus complicated by UTI. Urology deemed no surgical intervention needed but will need a PCNL in the future as an outpatient. Now pending placement as patient is currently homeless. Continue supportive care await placement. Encourage patient to participate in physical activity and be awake during the daytime. Encourage p.o. intake. Dietitian was consulted. Nursing staff reports patient has intermittent hematuria Nephrolithiasis with UTI -Per urology will need PCNL as an outpatient Urine culture from 04/30 done at [place] growing Shante glabrata, recent UA 05/07 - no growth in 48 hrs. S/p PO Diflucan treatment for total of 2 weeks. Pancytopenia HIV negative -s/p multiple cryoprecipitate transfusions -2/2 liver disease and splenomegaly evaluated by Heme/onc , stable for dc. -Outpatient follow-up with hematology ETOH Liver cirrhosis/HCV/HBV S/p treatment with Harvoni and recently tenofovir was prescribed by GI with diagnosis of hepatitis B. The patient was apparently not compliant. Will reconsult GI for them to make recommendations on duration of treatment needed for discharge planning Previously worked up in [facility] for liver transplant 2016 but unfortunately was not a candidate due to social issues and lack of support. Last EGD and colonoscopy in November 2016, portal hypertensive gastropathy noted on EGD otherwise both exams were normal. -GI recommends follow-up as outpatient in clinic when discharged. Continue lactulose, rifaximin.Nadolol on hold due to low-normal BP's. -tenofovir per GI for hepatitis B. -Monitor CMP. Hypotension- asymptomatic- on midodrine S/t liver disease. -hold nadolol for now. -continue to monitor. -BP needs to be checked " manually" for any significant hypertension readings Hyponatremia- stable. Likely hypervolemic in setting of liver failure. -continue with fluid restriction -monitor periodically. Acute renal failure/Hypokalemia- resolved -hold diuretics. Resume when needed. Appears euvolemic at this time. Hypoglycemia-resolved. poor PO intake. -ADAT. Added Ensure. -dietary consult appreciated. -started on megace Chronic hepatic encephalopathy -Continue Xifaxan and lactulose. -Slow to respond but otherwise appropriate. -Cognitive evaluation performed by Dr. Mac neuropsychiatry, patient does have medical decision capacity. He will need assistance upon discharge based on having mild cognitive disorder. Generalized weakness Palliative care following/input appreciated. -Out of bed daily. Continue physical therapy Adjustment disorder with flat affect and possible depression-continue Lexapro DVT prophylaxis: avoid chemical anticoagulation given coagulopathy and thrombocytopenia Discharge Planning: CM assist with discharge planning, Progress Note: Quality VTE Deep Vein Thrombosis/Pulmonary Embolism Present on Admission: No _ (1) Liver cirrhosis Qualifiers: Ascites presence: Hepatic cirrhosis type: other cirrhosis Qualified Code(s) : K74.69 - Other cirrhosis of liver
[2018-06-21] MEDS: Sodium Chloride 0.9% 2 ML Flush BID IV.FLUSH SCH ×2 (10:39→20:24)
[2018-06-21] MEDS: Ferrous Sulfate 325 MG Tablet PO SCH ×2 (12:15→17:59)
--- NOTE | 2018-06-21 17:13 | CT ---
EXAM DATE: 06/21/2018 5:07 PM EST AGE/SEX: 58 years / Male INDICATIONS: Trauma, fall. CLINICAL DATA: This is the patient's initial encounter. Patient reports that signs and symptoms have been present for 1 day and indicates a pain score of Nonresponsive. MEDICAL/SURGICAL HISTORY: Hepatitis C. Cholecystectomy. RADIATION DOSE: 48.79 CTDI (mGy) ; Patient motion COMPARISON: No prior exams available for comparison. TECHNIQUE: CT of the head without contrast. Using automated exposure control and adjustment of the mA and/or kV according to patient size, radiation dose was kept as low as reasonably achievable to ob tain optimal diagnostic quality images. DICOM format image data is available electronically for revi ew and comparison. FINDINGS: Cerebrum: The ventricles are normal for age. No evidence of midline shift, mass lesion, hemorrhage or acute infarction. No extraaxial fluid collections are seen. Mild to moderate periventricular and subcortical white matter small vessel ischemic changes are noted bilaterally. Posterior Fossa: The cerebellum and brainstem are intact. The 4th ventricle is midline. The cerebe llopontine angle is unremarkable. Extracranial: The visualized portion of the orbits is intact. Skull: The calvaria is intact. No evidence of skull fracture. CONCLUSION: 1. No acute infarct, acute hemorrhage, midline shift or extra-axial fluid collections. 2. Mild to moderate periventricular white matter small vessel ischemic changes bilaterally. . Electronically signed by: Feliberto Chan MD 06/21/2018 5:12 PM EST
[2018-06-21] MEDS: Sod Chloride 0.9% Inj 1,000 ML IV.SIG SCH (20:10)
[2018-06-21] MEDS: Escitalopram 10 MG Tablet PO SCH (20:10)
[2018-06-21 21:33] LABS: Baso % (Auto) 0.3 % (0.0-2.0); Eos % (Auto) 0.6 % (0.0-4.0); Hematocrit 27.5 % (39.0-51.0); Hemoglobin 9.6 gm/dL (13.0-17.0); Lymph # (Auto) 0.7 th/mm3 (1.0-4.8); Lymph % (Auto) 14.5 % (9.0-44.0); Mean Corpuscular HGB Conc 34.9 % (32.0-36.0); Mean Corpuscular Hemoglobin 41.3 pg (27.0-34.0); Mean Corpuscular Volume 118.1 fL (80.0-100.0); Mean Platelet Volume 8.5 fL (7.0-11.0); Mono # (Auto) 0.4 th/mm3 (0.0-0.9); Mono % (Auto) 7.8 % (0.0-8.0); Neut # (Auto) 3.5 th/mm3 (1.8-7.7); Neut % (Auto) 76.8 % (16.0-70.0); Platelet Count 40 th/mm3 (150-450); Red Blood Count 2.33 mil/mm3 (4.50-5.90); Red Cell Distribution Width 23.4 % (11.6-17.2); White Blood Count 4.5 th/mm3 (4.0-11.0)
[2018-06-21 21:45] LABS: Alanine Aminotransferase 35 U/L (12-78); Albumin 1.6 g/dL (3.4-5.0); Anion Gap 6 meq/L (5-15); Aspartate Aminotransferase 44 U/L (15-37); Blood Urea Nitrogen 23 mg/dL (7-18); Calcium 8.5 mg/dL (8.5-10.1); Carbon Dioxide 28.2 meq/L (21.0-32.0); Chloride 104 meq/L (98-107); Glomerular Filtration Rate 69 mL/min (>89); Glucose,Random 89 mg/dL (74-106); Potassium 3.8 meq/L (3.5-5.1); Sodium 138 meq/L (136-145)
[2018-06-21 21:48] LABS: Alkaline Phosphatase 96 U/L (45-117)
[2018-06-21 22:03] LABS: Pappenheimer Bodies Present
[2018-06-22 06:48] LABS: Calcium 8.1 mg/dL (8.5-10.1); Carbon Dioxide 28.3 meq/L (21.0-32.0); Potassium 3.9 meq/L (3.5-5.1)
[2018-06-22 08:01] LABS: Hematocrit 27.4 % (39.0-51.0); Hemoglobin 9.7 gm/dL (13.0-17.0); Mean Corpuscular HGB Conc 35.3 % (32.0-36.0); Mean Corpuscular Hemoglobin 42.3 pg (27.0-34.0); Mean Corpuscular Volume 119.7 fL (80.0-100.0); Mean Platelet Volume 9.2 fL (7.0-11.0); Platelet Count 41 th/mm3 (150-450); Red Blood Count 2.29 mil/mm3 (4.50-5.90); Red Cell Distribution Width 23.9 % (11.6-17.2); White Blood Count 4.1 th/mm3 (4.0-11.0)
[2018-06-22] MEDS: Tenofovir 300 MG Tablet PO SCH (10:37)
[2018-06-22] MEDS: Sodium Chloride 0.9% 2 ML Flush BID IV.FLUSH SCH ×2 (10:37→20:56)
[2018-06-22] MEDS: rifAXIMin 550 MG Tablet PO SCH ×2 (10:37→20:55)
[2018-06-22] MEDS: Sod Chloride 0.9% Inj 1,000 ML IV.SIG SCH (11:02)
[2018-06-22] MEDS: Ferrous Sulfate 325 MG Tablet PO SCH ×2 (12:00→19:16)
--- NOTE | 2018-06-22 12:00 | P.PNIM ---
Subjective Interval history: Patient continues to have a poor appetite and not wanting to eat much. He became confused yesterday and insistent in leaving AMA and got up and was unsteady and fell and hit his head. Physical Exam Vital signs: Last Vital Signs Temp 97.5 F L 06/22/18 09:30 Pulse 80 06/22/18 09:30 Resp 16 06/22/18 09:30 BP 88/50 L 06/22/18 09:30 Pulse Ox 95 06/22/18 09:30 Intake & Output 06/20/18 06/21/18 06/22/18 06/23/18 06:59 06:59 06:59 06:59 Intake Total 720 / 720 1000 / 1000 Output Total 400 / 400 Balance 720 / 720 -400 / -400 1000 / 1000 Weight 62.8 kg 62.8 kg 62.8 kg Narrative: GENERAL: Well-developed male in no acute distress. SKIN: Warm and dry. Jaundiced. Cardiovascularregular rate and rhythm Lungsclear to auscultation bilaterally Abdomensoft nontender nondistended normoactive bowel sounds NEUROLOGICAL: Awake and alert to person place but not to time or situation tells me he does not have any appetite right now PSYCH: Flat affect. SKIN: Area of ecchymosis above the left eyebrow with abrasion from fall Urinary Catheter Management Condom: Cath placed during this visit: no Results Labs CBC & Chem 7: 06/22/18 05:46 06/22/18 05:46 Imaging Imaging: Impressions Head CT 06/21/18 00:00 CONCLUSION: 1. No acute infarct, acute hemorrhage, midline shift or extra-axial fluid collections. 2. Mild to moderate periventricular white matter small vessel ischemic changes bilaterally. . Assessment and Plan (1) Liver cirrhosis: Code(s): K74.60 - Unspecified cirrhosis of liver Status: Acute (2) Hep C w/o coma, chronic: Code(s): B18.2 - Chronic viral hepatitis C Status: Chronic Plan This is a 58 y/o male with history of Hep B, Hep C, and liver cirrhosis admitted on 04/29 after being transferred from [facility] for staghorn renal calculus complicated by UTI. Urology deemed no surgical intervention needed but will need a PCNL in the future as an outpatient. Now pending placement as patient is currently homeless. Continue supportive care await placement. Encourage patient to participate in physical activity and be awake during the daytime. Encourage p.o. intake. Dietitian was consulted and recommended mighty shakes. Overall, patient is declining and will get palliative care to evaluate. We will also reconsult nurse psychiatry to evaluate for capacity as patient's mental status continues to wax and wane. Status post fall yesterday with normal CT of the brain. Left forehead abrasionlocal wound care. Nephrolithiasis with UTI -Per urology will need PCNL as an outpatient Urine culture from 04/30 done at [place] growing Shante glabrata, recent UA 05/07 - no growth in 48 hrs. S/p PO Diflucan treatment for total of 2 weeks. Pancytopenia HIV negative -s/p multiple cryoprecipitate transfusions -2/2 liver disease and splenomegaly evaluated by Heme/onc , stable for dc. -Outpatient follow-up with hematology ETOH Liver cirrhosis/HCV/HBV S/p treatment with Harvoni and recently tenofovir was prescribed by GI with diagnosis of hepatitis B. The patient was apparently not compliant. Will reconsult GI for them to make recommendations on duration of treatment needed for discharge planning Previously worked up in [facility] for liver transplant 2016 but unfortunately was not a candidate due to social issues and lack of support. Last EGD and colonoscopy in November 2016, portal hypertensive gastropathy noted on EGD otherwise both exams were normal. -GI recommends follow-up as outpatient in clinic when discharged. Continue lactulose which patient has refused to take at times, rifaximin.Nadolol on hold due to low-normal BP's. -tenofovir per GI for hepatitis B. -T bilirubin has been trending up as liver cirrhosis likely progressing. Patient with poor prognosis. We will consult palliative care to assist with short-term or long-term goals Hypotension- asymptomatic- on midodrine S/t liver disease. -hold nadolol for now. -continue to monitor. -BP needs to be checked " manually" for any significant hypertension readings Hyponatremia- stable. Likely hypervolemic in setting of liver failure. -continue with fluid restriction -monitor periodically. Acute renal failure/Hypokalemia- resolved -hold diuretics. Resume when needed. Appears euvolemic at this time. Hypoglycemia-resolved. poor PO intake. -ADAT. Added Ensure. -dietary consult appreciated. -started on megace Chronic hepatic encephalopathy -Continue Xifaxan and lactulose. -Slow to respond but otherwise appropriate. -Cognitive evaluation performed by Dr. Mac neuropsychiatry on 05/27, patient does have medical decision capacity. He will need assistance upon discharge based on having mild cognitive disorder. We will have Dr. Mac reconsulted for reevaluation this patient's mental status has been waxing and waning Generalized weakness Palliative care following/input appreciated. -Out of bed daily. Continue physical therapy Adjustment disorder with flat affect and possible depression-continue Lexapro DVT prophylaxis: avoid chemical anticoagulation given coagulopathy and thrombocytopenia Discharge Planning: CM assist with discharge planning, Progress Note: Quality VTE Deep Vein Thrombosis/Pulmonary Embolism Present on Admission: No _ (1) Liver cirrhosis Qualifiers: Ascites presence: Hepatic cirrhosis type: other cirrhosis Qualified Code(s) : K74.69 - Other cirrhosis of liver
--- NOTE | 2018-06-22 13:31 | P.PNPAL ---
Reason for Visit Reason for visit: a. To assist with evaluation and management of symptoms including: Encephalopathy, pain b. To assist medical decision maker(s) with: better understanding of current medical conditions; weighing benefits/burdens of medical treatment options; making medical treatment decisions. Subjective Subjective/Interval History: This 58-year-old patient who was transferred here to [facility] from [facility] in [place] on 04/29/18. There he had gone for evaluation of right-sided abdominal pain on 04/28. He also presented with constipation and dark urine. Abdominal CT indicative of portal hypertension changes, cirrhotic liver, and 3.5 cm staghorn calculus right kidney with possible mild duodenitis and cholelithiasis. + pancytopenia, + UTI - started on zosyn IV. He was transferred to [place] due to staghorn calculus w concomitant infection, and requiring a urologist evaluation. also noted to have chronic hep C, cirrhosis, stable. Palliative care reconsulted today, of note palliative already following this patient. Seen today to follow-up on encephalopathy, confusion and goals of medical treatment. Patient H&H stable, platelets downtrending 41. AST 44, ALT 35, alk phos 96. Total bilirubin up slightly 11.3, has been in the 9-10 range here. Ammonia level 26. Patient has been more confused for the past couple of days, yesterday tried to leave AMA and fell and struck his head. CT brain negative for acute process. Poor appetite in past few days. Palliative care reconsulted to assist with clarification of goals of treatment as patient has had some decline. Neuropsychiatry also reconsulted to assist with determining if patient has capacity to make medical decisions. He had previously been deemed capacitated to make medical decisions however also was recommended for support outside of the hospital upon discharge due to cognitive deficits. Palliative has previously spoken with 2 of patient's brothers whom he designated as healthcare surrogate's. They have expressed ability to support him via phone however they are unable to physically provide him resources or housing. During prior palliative interactions patient has expressed aggressive goals including full code. Patient seen today in room no visitors present. He is awake no clothing or blankets over him ; he is pulling them down. I assisted him to place gown back on him. He tells me he is trying to get out of here. He is unable to tell me where he is going. He is unable to tell me where he is. He is able to tell me his date of and his 2 brothers Clifton and Arley. He has no insight into his medical conditions. He denies pain. He denies dyspnea. When asked about appetite he says he is not hungry though he is unable to tell me why. He does follow simple commands if repeated. Lethargic. Family/Friend Interactions: Call to brothgeovanny Tubbs, voicemail left with my contact information. Advance Directives Advance Directives Date on File: 05/07/18 Health Care Surrogate Name and Number: Names brother Arley Valadez (brett) Objective Vital Signs: Vital Signs 06/21/18 13:58 06/21/18 14:58 06/21/18 15:56 Temperature 97.2 F L 97 F L 97.5 F L Pulse Rate 71 70 70 Respiratory Rate 18 16 18 Blood Pressure 98/64 L 104/62 104/64 Pulse Oximetry 97 100 99 06/21/18 16:00 06/21/18 19:54 06/22/18 00:00 Temperature 97.5 F L 97.7 F 97.5 F L Pulse Rate 70 69 83 Respiratory Rate 18 18 18 Blood Pressure 104/64 88/50 L 88/52 L Pulse Oximetry 99 97 99 06/22/18 04:00 06/22/18 07:58 06/22/18 09:30 Temperature 97.1 F L 97.5 F L 97.5 F L Pulse Rate 18 L 80 80 Respiratory Rate 18 16 16 Blood Pressure 91/52 L 88/50 L 88/50 L Pulse Oximetry 100 95 Intake & Output 06/21/18 06/22/18 06/22/18 18:59 06:59 18:59 Intake Total 1000 / 1000 Output Total 400 / 400 Balance -400 / -400 1000 / 1000 Weight 62.8 kg Intake: IV 1000 / 1000 NS Inj 1,000 ML @ 70 mls/hr IV. 1000 / 1000 SIG .[id number] NIRAJ Rx#:[id number] Output: Urine 400 / 400 Other: # Voids 1 Date of Last Bowel Movement 06/21/18 06/20/18 06/20/18 # Bowel Movements 1 # Incontinent Bowel Movements 2 Physical Exam: CONSTITUTIONAL/GENERAL: This is a chronically ill appearing male, lethargic, confused TUBES/LINES/DRAINS: PIV uE. SKIN: No rashes, or lesions. Ecchymoses /small abrasion left eyebrow region. Mild jaundice. Skin warm/dry. EYES: Pupils equal and round and reactive. Extraocular motions intact. + scleral icterus. No injection or drainage. Fundi not examined. ENT: Hearing grossly normal. Nose without bleeding or purulent drainage. Throat without visible erythema, exudates, masses, or lesions.MM dry CARDIOVASCULAR: Regular rate and rhythm , 3/6 systolic murmur . No JVD. Peripheral pulses symmetric. Trace pedal edema. Chronic vascular changes to skin bilateral lower legs RESPIRATORY/CHEST: Symmetric, unlabored respirations. on room air. Clear to auscultation, decreased air movement to bases. Breath sounds equal bilaterally. GASTROINTESTINAL: Abdomen soft, mildly tender, nondistended/slight splenomegaly . No guarding. Bowel sounds present. MUSCULOSKELETAL: Extremities without clubbing, cyanosis. No joint tenderness or effusion noted. No calf tenderness. chronic vascular discoloration visible to bilateral lower legs, trace edema Lower legs/feet NEUROLOGICAL: sleepy , arouses some. Oriented to self and family otherwise confused. Poor insight. Follows simple commands slowly, if repeated. Moves all 4 extremities, able to reposition self in bed. PSYCHIATRIC: flat/ lethargic . Diagnostic Tests Laboratory: Laboratory Results - last 72 hr 06/21/18 06/21/18 06/21/18 20:15 21:05 21:05 WBC 4.5 RBC 2.33 L Hgb 9.6 L Hct 27.5 L MCV 118.1 H MCH 41.3 H MCHC 34.9 RDW 23.4 H Plt Count 40 L D MPV 8.5 Prelim Diff (Auto) Slide review pending Neut % (Auto) 76.8 H Lymph % (Auto) 14.5 [place] % (Auto) 7.8 Eos % (Auto) 0.6 Baso % (Auto) 0.3 Neut # (Auto) 3.5 Lymph # (Auto) 0.7 L [place] # (Auto) 0.4 Eos # (Auto) 0.0 Baso # (Auto) 0.0 WBC Differential . Diff Scan Auto diff confirmed Differential Comment . Pappenheimer Bodies Present H Sodium 138 Potassium 3.8 Chloride 104 Carbon Dioxide 28.2 Anion Gap 6 BUN 23 H Creatinine 1.10 Estimated GFR 69 L POC Glucose 161 H Random Glucose 89 Calcium 8.5 Total Bilirubin 11.3 H AST 44 H ALT 35 Alkaline Phosphatase 96 Ammonia Total Protein 6.0 L Albumin 1.6 L 06/21/18 06/22/18 06/22/18 21:05 05:46 05:46 WBC 4.1 RBC 2.29 L Hgb 9.7 L Hct 27.4 L MCV 119.7 H MCH 42.3 H MCHC 35.3 RDW 23.9 H Plt Count 41 L MPV 9.2 Prelim Diff (Auto) Neut % (Auto) Lymph % (Auto) [place] % (Auto) Eos % (Auto) Baso % (Auto) Neut # (Auto) Lymph # (Auto) [place] # (Auto) Eos # (Auto) Baso # (Auto) WBC Differential Diff Scan Differential Comment Pappenheimer Bodies Sodium 140 Potassium 3.9 Chloride 105 Carbon Dioxide 28.3 Anion Gap 7 BUN 21 H Creatinine 0.92 Estimated GFR 85 L POC Glucose Random Glucose 65 L Calcium 8.1 L Total Bilirubin AST ALT Alkaline Phosphatase Ammonia 26 Total Protein Albumin Result Diagrams: 06/22/18 05:46 06/22/18 05:46 Imaging: Impressions Head CT 06/21/18 00:00 CONCLUSION: 1. No acute infarct, acute hemorrhage, midline shift or extra-axial fluid collections. 2. Mild to moderate periventricular white matter small vessel ischemic changes bilaterally. . Assessment and Plan - Disease Oriented Problem List (1) Hepatitis B infection (2) Staghorn renal calculus (3) Acute UTI (4) Liver cirrhosis (5) Hep C w/o coma, chronic Pertinent Non-Medical Issues: Psychosocial: Patient indicates originally from [place]. Did live in [place] for about a year but has since been in [place] for several years. 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 Has 7 siblings though does not remain in close communication with them. Spiritual: Worship, no particular affiliation. Requests horse racing manager visit, horse racing manager notified. Legal:Patient today mildly encephalopathic. Ammonia level elevated. Partially oriented. Appears capacitated enough to participate some in decision making but does not have full insight. He is able to designate healthcare surrogate names his brother Arley Valadez as someone he would trust to make decisions in an emergency. Would recommend shared decision making at this point given his fluctuating mental status. Ethical issues impacting care: No ethical issues identified Important Contacts: Brother Arley Valadez (Brett) in [place]- [facility] #[phone] XXX OLD # XXX [phone] Brother ARLEY in [facility] [phone] . Prognosis: Patient is a poor historian, full medical history not readily available. Appears he has had some component of chronic liver disease, now with superimposed acute liver dysfunction. Hepatitis B, hepatitis C positive. Initiated on treatment here. Encephalopathic. Bilirubin trending up. Possible current acute disease process may be stable with ongoing aggressive treatment w antiviral, though he remains high risk for ongoing if liver disease does not stabilize or respond to treatment. At that point may be appropriate for hospice. On the other hand if goals were comfort oriented and did not desire further aggressive interventions then would also be hospice appropriate now. Code Status: Full Code Plan: * Legal decision maker:Patient today mildly encephalopathic. Ammonia level elevated. Partially oriented. Appears capacitated enough to participate some in decision making but does not have full insight. He is able to designate healthcare surrogate names his brother Arley Valadez as someone he would trust to make decisions in an emergency. Would recommend shared decision making at this point given his fluctuating mental status. * Goals: Per initial interaction: patient goals stated to continue treatment he "wants to live ". He has limited insight and understanding at this time. Designated his brother Fortunato as healthcare surrogate. I have spoken at length with this brother today. He is in agreement to serve as HCS. Update and review of conditions provided today to brother. He wishes to talk to other family members, process information. No decisions made today. He plans to talk further with palliative tomorrow 05/12/18. He is unable to care for patient himself he lives out of state. He feels patient will likely need placement. Patient just moved here from [place] possibly in March at that time he had Medicaid coverage in [place]. * This patient is known to palliative services. His mental status has fluctuated during hospital course. He has been recommended for supportive decision-making giving this fluctuation. Previously neuropsych indicated he was able to make his own decisions. He has had more confusion and deterioration in the past few days. He may be hospice appropriate if goals were compatible. Patient previously expressed aggressive goals, brothers whom he designated as healthcare surrogate, supportive of patient's wishes. Brothers have previously indicated that they would be unable to help the patient 's physically or with housing however they would remain available over the phone to assist him as needed. * CODE STATUS: Full code * SYMPTOMS: --Pain-has had some ongoing pain to right flank/abdomen indicates this was new onset at time of presentation to [facility]. He has previously endorsed good relief with use of prn--indicates he had not previously been on any chronic opiates for chronic pain syndromes. Oxycodone 5 mg had been effective a few times per day. Patient now with increased confusion, cautious use of opiates or benzos given deteriorating mental status. --Encephalopathy-patient with fluctuating mental status, hepatitis, bilirubin trending up, ammonia level also up and down during hospitalization. Bilirubin at some point stopped trending up. GI following, now signed off. On lactulose, rifaximin . Has been receiving hepatitis treatments. Previously oriented though forgetful, Possible this may improve if liver functions improved. Bilirubin currently 11.3, has been 9-10 during hospital course. Transaminases down AST 144, ALT 35, alk phos 96. Ammonia level 26. -- n/v-intermittent, has prn zofran available. Previously endorse nausea. Does not endorse any today. Monitor requirements/effectiveness. * Palliative care will continue to follow during hospital course as condition evolves, to assist patient/decision-maker with understanding of medical conditions, weighing benefits/burdens of treatment options, for clarification of goals of treatment. Additionally will assist with any symptoms of palliative concern Attestation Attestation: To help prompt me to consider important information that might be impacting today's encounter and assessment, information from prior notes written by myself or my colleagues may have been "brought forward" into today's note. My signature on this note, however, is an attestation that I personally performed the exam, history, and/or decision-making noted today, and, unless otherwise indicated, the interactions with patient, family, and staff as well as the review of records all occurred today. I also attest that the listed assessment and stated plan reflect my best clinical judgment today based on the combination of historical information, prior notes, and today's exam/ interactions. When time spent is documented, it refers only to time spent today by the signer, or if indicated, combined time spent today by collaborating physician/nurse practitioner.
[2018-06-22] MEDS: Escitalopram 10 MG Tablet PO SCH (20:55)
[2018-06-23] MEDS: Sod Chloride 0.9% Inj 1,000 ML IV.SIG SCH ×3 (00:27→16:36)
[2018-06-23] MEDS: rifAXIMin 550 MG Tablet PO SCH ×2 (08:19→20:28)
[2018-06-23] MEDS: Tenofovir 300 MG Tablet PO SCH (08:19)
[2018-06-23] MEDS: Sodium Chloride 0.9% 2 ML Flush BID IV.FLUSH SCH ×2 (08:19→20:29)
--- NOTE | 2018-06-23 10:32 | P.DIET ---
Nutritional Evaluation Type of nutrition evaluation: follow-up Nutrition screening: [facility] [place]: 06/12/18 [facility] [place] Poor PO Intake 06/18/18 [facility] [place] Poor PO Intake 06/22/18 [facility] [place] malnutrition Subjective Subjective Comments: Eating 25% of meals at best. From 06/12 note: Pt does not care for the Ensure Enlive and he does not care for Mighty Shakes. Pt says he is willing to try Farwell Essentials and he is receptive to receiving yogurt and peanut butter as a snack daily. Pt nods his head "yes" when asked if he feels like he has lost his appetite. Pt is edentulous. Objective - Diagnosis Kidney Stone, UTI, Jaundice, Liver Failure, Hep C - Objective % IBW: 83 Body Weight Used for Calculations: Actual (64.9 kg) Energy Needs - Lower Range (kCal/kg): 33 Energy Needs - Upper Range (kCal/kg): 38 Lower Limit kCal/kg (kCals): 2,142 Upper Limit kCal/kg (kCals): 2,459 Lower Limit Protein Factor (Grams per Kg): 1.3 Upper Limit Protein Factor (Grams per Kg): 1.6 Lower Protein Needs (Protein): 84 Upper Protein Needs (Protein): 104 Dietitian Reviewed in Medical Record: Current diet, Curent medications, Intake & Output, Labs, Medical history Diet Order: Regular 1200ml fluid restriction Objective Comments: PMH includes: Hep C, Hep B, Kidney Stone, Liver disease; homelessness Meds Include: Megace started 06/13 Assessment Assessment: Pt remains at nutritional risk r/t very poor po intake and wt loss since admission. Declines Ensure Enlive. Will continue Farwell Essentials TID ( 230 kcal and 13g protein per serving), yogurt BID and a daily snack. Megace has been started and will hopefully improve appetite. If po intake does not improve and weight loss continues, recommend TFing be considered (if consistent with goals of care). RD following. Recommendations: 1. Enlive supplement d/c'ed 2. Plan to continue Farwell Essentials TID 3. Send Yogurt BID and A daily snack 4. Consider TFing to prevent further nutritional depletion 5. Continue megace Dietitian to Monitor: Lab values, Supplement acceptance, Intake & Output, Diet tolerance, Weight change, PO Intake, Medical course
[2018-06-23] MEDS: Ferrous Sulfate 325 MG Tablet PO SCH ×2 (11:59→17:20)
--- NOTE | 2018-06-23 14:06 | P.PNIM ---
Subjective Interval history: Still has poor appetite does not want to eat. Tells me he does not want hospice. Physical Exam Vital signs: Last Vital Signs Temp 97.9 F 06/23/18 12:00 Pulse 73 06/23/18 12:00 Resp 20 06/23/18 12:00 BP 100/60 06/23/18 12:00 Pulse Ox 98 06/23/18 12:00 Intake & Output 06/21/18 06/22/18 06/23/18 06/24/18 06:59 06:59 06:59 06:59 Intake Total 2000 / 2000 900 / 900 Output Total 400 / 400 500 / 500 Balance -400 / -400 1500 / 1500 900 / 900 Weight 62.8 kg 62.8 kg 63.6 kg Narrative: GENERAL: Well-developed male in no acute distress. SKIN: Warm and dry. Jaundiced. Cardiovascularregular rate and rhythm Lungsclear to auscultation bilaterally Abdomensoft nontender nondistended normoactive bowel sounds NEUROLOGICAL: Awake and alert to person place but not to time or situation tells me he does not have any appetite right now PSYCH: Flat affect. Does not want to engage with me. SKIN: Area of ecchymosis above the left eyebrow with abrasion from fall Urinary Catheter Management Condom: Cath placed during this visit: no Results Labs CBC & Chem 7: 06/22/18 05:46 06/22/18 05:46 Assessment and Plan (1) Liver cirrhosis: Code(s): K74.60 - Unspecified cirrhosis of liver Status: Acute (2) Hep C w/o coma, chronic: Code(s): B18.2 - Chronic viral hepatitis C Status: Chronic Plan This is a 58 y/o male with history of Hep B, Hep C, and liver cirrhosis admitted on 04/29 after being transferred from [facility] for staghorn renal calculus complicated by UTI. Urology deemed no surgical intervention needed but will need a PCNL in the future as an outpatient. Now pending placement as patient is currently homeless. Continue supportive care await placement. Encourage patient to participate in physical activity and be awake during the daytime. Encourage p.o. intake. Dietitian was consulted and recommended mighty shakes. Overall, patient is declining and palliative care is following. We will also reconsult Neuropsychiatry to evaluate for capacity as patient's mental status continues to wax and wane. Currently will have shared decision making with his family. Brother at this time does not want him to return to their home upon discharge. Status post fall yesterday with normal CT of the brain. Left forehead abrasionlocal wound care. Nephrolithiasis with UTI -Per urology will need PCNL as an outpatient Urine culture from 04/30 done at [place] growing Shante glabrata, recent UA 05/07 - no growth in 48 hrs. S/p PO Diflucan treatment for total of 2 weeks. Malnutritionpatient with poor p.o. appetite is on Megace, dietitian following. Pancytopenia HIV negative -s/p multiple cryoprecipitate transfusions -2/2 liver disease and splenomegaly evaluated by Heme/onc , stable for dc. -Outpatient follow-up with hematology ETOH Liver cirrhosis/HCV/HBV S/p treatment with Harvoni and recently tenofovir was prescribed by GI with diagnosis of hepatitis B. The patient was apparently not compliant. Will reconsult GI for them to make recommendations on duration of treatment needed for discharge planning Previously worked up in [facility] for liver transplant 2016 but unfortunately was not a candidate due to social issues and lack of support. Last EGD and colonoscopy in November 2016, portal hypertensive gastropathy noted on EGD otherwise both exams were normal. -GI recommends follow-up as outpatient in clinic when discharged. Continue lactulose which patient has refused to take at times, rifaximin.Nadolol on hold due to low-normal BP's. -tenofovir per GI for hepatitis B. -T bilirubin has been trending up as liver cirrhosis likely progressing. Patient with poor prognosis. We will consult palliative care to assist with short-term or long-term goals Hypotension- asymptomatic- on midodrine S/t liver disease. -hold nadolol for now. -continue to monitor. -BP needs to be checked " manually" for any significant hypertension readings Hyponatremia- stable. Likely hypervolemic in setting of liver failure. -continue with fluid restriction -monitor periodically. Acute renal failure/Hypokalemia- resolved -hold diuretics. Resume when needed. Appears euvolemic at this time. Hypoglycemia-resolved. poor PO intake. -ADAT. Added Ensure. -dietary consult appreciated. -started on megace Chronic hepatic encephalopathy -Continue Xifaxan and lactulose. -Slow to respond but otherwise appropriate. -Cognitive evaluation performed by Dr. Mac neuropsychiatry on 05/27, patient does have medical decision capacity. He will need assistance upon discharge based on having mild cognitive disorder. We will have Dr. Mac reconsulted for reevaluation this patient's mental status has been waxing and waning. Generalized weakness Palliative care following/input appreciated. -Out of bed daily. Continue physical therapy Adjustment disorder with flat affect and possible depression-continue Lexapro DVT prophylaxis: avoid chemical anticoagulation given coagulopathy and thrombocytopenia Discharge Planning: CM assist with discharge planning, Progress Note: Quality VTE Deep Vein Thrombosis/Pulmonary Embolism Present on Admission: No _ (1) Liver cirrhosis Qualifiers: Ascites presence: Hepatic cirrhosis type: other cirrhosis Qualified Code(s) : K74.69 - Other cirrhosis of liver
[2018-06-23] MEDS: Escitalopram 10 MG Tablet PO SCH (20:28)
[2018-06-24] MEDS: Sod Chloride 0.9% Inj 1,000 ML IV.SIG SCH ×3 (04:05→18:31)
[2018-06-24] MEDS: Tenofovir 300 MG Tablet PO SCH ×2 (08:40→10:29)
[2018-06-24] MEDS: Sodium Chloride 0.9% 2 ML Flush BID IV.FLUSH SCH ×2 (08:40→20:49)
[2018-06-24] MEDS: rifAXIMin 550 MG Tablet PO SCH ×2 (08:40→20:49)
--- NOTE | 2018-06-24 12:19 | P.PNIM ---
Subjective Interval history: Did not want to speak with me. Physical Exam Vital signs: Last Vital Signs Temp 97.2 F L 06/24/18 08:00 Pulse 13 L 06/24/18 08:00 Resp 18 06/24/18 08:00 BP 108/68 06/24/18 08:00 Pulse Ox 98 06/24/18 08:00 Intake & Output 06/22/18 06/23/18 06/24/18 06/25/18 06:59 06:59 06:59 06:59 Intake Total 1999 / 1999 1875 / 1875 Output Total 400 / 400 500 / 500 180 / 180 Balance -400 / -400 1500 / 1500 1695 / 1695 Weight 62.8 kg 63.6 kg 64.9 kg Narrative: GENERAL: Well-developed male in no acute distress. SKIN: Warm and dry. Jaundiced. Cardiovascularregular rate and rhythm Lungsclear to auscultation bilaterally Abdomensoft nontender nondistended normoactive bowel sounds NEUROLOGICAL: Awake, refuses to answer my questions PSYCH: Flat affect. Does not want to engage with me. SKIN: Area of ecchymosis above the left eyebrow with abrasion from fall Urinary Catheter Management Condom: Cath placed during this visit: no Results Labs CBC & Chem 7: 06/22/18 05:46 06/22/18 05:46 Assessment and Plan (1) Liver cirrhosis: Code(s): K74.60 - Unspecified cirrhosis of liver Status: Acute (2) Hep C w/o coma, chronic: Code(s): B18.2 - Chronic viral hepatitis C Status: Chronic Plan This is a 58 y/o male with history of Hep B, Hep C, and liver cirrhosis admitted on 04/29 after being transferred from [facility] for staghorn renal calculus complicated by UTI. Urology deemed no surgical intervention needed but will need a PCNL in the future as an outpatient. Now pending placement as patient is currently homeless. Continue supportive care await placement. Encourage patient to participate in physical activity and be awake during the daytime. Encourage p.o. intake. Dietitian was consulted and recommended mighty shakes. Overall, patient is declining and palliative care is following. We will also reconsult Neuropsychiatry, Dr. Mac to evaluate for capacity as patient's mental status continues to wax and wane. Currently will have shared decision making with his family. Brother at this time does not want him to return to their home upon discharge. Status post fall 06/[address] of the brain. Left forehead abrasion from [facility] Nephrolithiasis with UTI -Per urology will need PCNL as an outpatient Urine culture from 04/30 done at [place] growing Shante glabrata, recent UA 05/07 - no growth in 48 hrs. S/p PO Diflucan treatment for total of 2 weeks. Malnutritionpatient with poor p.o. appetite is on Megace, dietitian following. Pancytopenia HIV negative -s/p multiple cryoprecipitate transfusions -2/2 liver disease and splenomegaly evaluated by Heme/onc , stable for dc. -Outpatient follow-up with hematology ETOH Liver cirrhosis/HCV/HBV S/p treatment with Harvoni and recently tenofovir was prescribed by GI with diagnosis of hepatitis B. The patient was apparently not compliant. Will reconsult GI for them to make recommendations on duration of treatment needed for discharge planning Previously worked up in [facility] for liver transplant 2016 but unfortunately was not a candidate due to social issues and lack of support. Last EGD and colonoscopy in November 2016, portal hypertensive gastropathy noted on EGD otherwise both exams were normal. -GI recommends follow-up as outpatient in clinic when discharged. Continue lactulose which patient has refused to take at times, rifaximin.Nadolol on hold due to low-normal BP's. -tenofovir per GI for hepatitis B. -T bilirubin has been trending up as liver cirrhosis likely progressing. Patient with poor prognosis. We will consult palliative care to assist with short-term or long-term goals Hypotension- asymptomatic- on midodrine S/t liver disease. -hold nadolol for now. -continue to monitor. -BP needs to be checked " manually" for any significant hypertension readings Hyponatremia- stable. Likely hypervolemic in setting of liver failure. -continue with fluid restriction -monitor periodically. Acute renal failure/Hypokalemia- resolved -hold diuretics. Resume when needed. Appears euvolemic at this time. Hypoglycemia-resolved. poor PO intake. -ADAT. Added Ensure. -dietary consult appreciated. -started on megace Chronic hepatic encephalopathy -Continue Xifaxan and lactulose. -Slow to respond but otherwise appropriate. -Cognitive evaluation performed by Dr. Estefania neuropsychiatry on 05/27, patient does have medical decision capacity. He will need assistance upon discharge based on having mild cognitive disorder. We will have Dr. Mac reconsulted for reevaluation this patient's mental status has been waxing and waning. Generalized weakness Palliative care following/input appreciated. -Out of bed daily. Continue physical therapy Adjustment disorder with flat affect and possible depression-continue Lexapro DVT prophylaxis: avoid chemical anticoagulation given coagulopathy and thrombocytopenia Discharge Planning: CM assist with discharge planning, Progress Note: Quality VTE Deep Vein Thrombosis/Pulmonary Embolism Present on Admission: No _ (1) Liver cirrhosis Qualifiers: Ascites presence: Hepatic cirrhosis type: other cirrhosis Qualified Code(s) : K74.69 - Other cirrhosis of liver
[2018-06-24] MEDS: Ferrous Sulfate 325 MG Tablet PO SCH ×2 (12:22→17:21)
[2018-06-24] MEDS: Escitalopram 10 MG Tablet PO SCH (20:49)
[2018-06-25] MEDS: Sod Chloride 0.9% Inj 1,000 ML IV.SIG SCH (09:02)
[2018-06-25] MEDS: Tenofovir 300 MG Tablet PO SCH (09:04)
[2018-06-25] MEDS: rifAXIMin 550 MG Tablet PO SCH ×2 (09:05→21:58)
[2018-06-25] MEDS: Sodium Chloride 0.9% 2 ML Flush BID IV.FLUSH SCH ×2 (09:05→21:58)
[2018-06-25] MEDS: Ferrous Sulfate 325 MG Tablet PO SCH ×2 (12:39→17:36)
--- NOTE | 2018-06-25 14:01 | P.PNIM ---
Subjective Interval history: Discussed with nursing, no overnight events. Patient is a poor historian. Has been itching himself. No fever or chills. Also has this baseline tremors. Confused. Physical Exam Vital signs: Vital Signs 06/24/18 16:00 06/24/18 20:00 06/25/18 00:00 Temperature 97.7 F 98 F 98.1 F Pulse Rate 86 80 88 Respiratory Rate 18 18 18 Blood Pressure 110/66 105/62 101/58 L Pulse Oximetry 97 97 98 06/25/18 04:00 06/25/18 08:00 06/25/18 12:00 Temperature 97.2 F L 97.8 F 97.5 F L Pulse Rate 96 H 86 97 H Respiratory Rate 18 14 14 Blood Pressure 96/56 L 104/66 106/60 Pulse Oximetry 98 98 97 Intake & Output 06/24/18 06/25/18 06/25/18 18:59 06:59 18:59 Intake Total 1000 / 1000 1000 / 1000 Balance 1000 / 1000 1000 / 1000 Intake: IV 1000 / 1000 1000 / 1000 NS Inj 1,000 ML @ 70 mls/hr IV. 1000 / 1000 1000 / 1000 SIG .[id number] NIRAJ Rx#:[id number] Other: # Voids 1 # Incontinent Voids 6 Date of Last Bowel Movement 06/21/18 06/21/18 Narrative: GENERAL: Not in distress. SKIN: Warm and dry. Jaundiced. Icteric sclera. Cardiovascularregular rate and rhythm Lungsclear to auscultation bilaterally, poor effort. Abdomensoft nontender nondistended normoactive bowel sounds NEUROLOGICAL: Awake, oriented to self and place but not to time. Does not follow any commands SKIN: Area of ecchymosis above the left eyebrow with abrasion from fall, patient also has a new abrasion on the right forearm. - Urinary Catheter Management Condom Cath placed during this visit: no Results - Labs CBC & Chem 7: 06/22/18 05:46 06/22/18 05:46 Assessment and Plan - Assessment (1) Liver cirrhosis Code(s): K74.60 - Unspecified cirrhosis of liver Status: Acute (2) Hep C w/o coma, chronic Code(s): B18.2 - Chronic viral hepatitis C Status: Chronic - Plan This is a 58 y/o male with history of Hep B, Hep C, and liver cirrhosis admitted on 04/29 after being transferred from [facility] for staghorn renal calculus complicated by UTI. Urology deemed no surgical intervention needed but will need a PCNL in the future as an outpatient. Now pending placement as patient is currently homeless. Continue supportive care await placement. Encourage patient to participate in physical activity and be awake during the daytime. Encourage p.o. intake. Dietitian was consulted and recommended mighty shakes. Overall, patient is declining and palliative care is following. We will also reconsult Neuropsychiatry, Dr. Mac to evaluate for capacity as patient's mental status continues to wax and wane. Currently will have shared decision making with his family. Brother at this time does not want him to return to their home upon discharge. Status post fall 06/[address] of the brain. Left forehead abrasion from [facility]. Nephrolithiasis with UTI -Per urology will need PCNL as an outpatient. Urine culture from 04/30 done at [place] growing Shante glabrata, recent UA 05/07 - no growth in 48 hrs. S/p PO Diflucan treatment for total of 2 weeks. Malnutritionpatient with poor p.o. appetite is on Megace, dietitian following. Pancytopenia HIV negative -s/p multiple cryoprecipitate transfusions -2/2 liver disease and splenomegaly evaluated by Heme/onc , stable for dc. -Outpatient follow-up with hematology ETOH Liver cirrhosis/HCV/HBV S/p treatment with Harvoni and recently tenofovir was prescribed by GI with diagnosis of hepatitis B. The patient was apparently not compliant. Will reconsult GI for them to make recommendations on duration of treatment needed for discharge planning Previously worked up in [facility] for liver transplant 2016 but unfortunately was not a candidate due to social issues and lack of support. Last EGD and colonoscopy in November 2016, portal hypertensive gastropathy noted on EGD otherwise both exams were normal. Continue lactulose which patient has refused to take at times, rifaximin.Nadolol on hold due to low-normal BP's. -tenofovir per GI for hepatitis B. -T bilirubin has been trending up as liver cirrhosis likely progressing. Patient with poor prognosis. Palliative on board to assist with short-term or long-term goals Hypotension- asymptomatic- on midodrine S/t liver disease. -hold nadolol for now. -continue to monitor. -BP needs to be checked " manually" for any significant hypertension readings Hyponatremia- stable. Acute renal failure/Hypokalemia- resolved -hold diuretics. Resume when needed. Appears euvolemic at this time. Hypoglycemia-resolved. Poor PO intake. -ADAT. Ensure, Megace. Chronic hepatic encephalopathy -Continue Xifaxan and lactulose. -Slow to respond but otherwise appropriate. -Cognitive evaluation performed by Dr. Mac neuropsychiatry on 05/27, patient does have medical decision capacity. He will need assistance upon discharge based on having mild cognitive disorder. We will have Dr. Mac reconsulted for reevaluation this patient's mental status has been waxing and waning. Generalized weakness Palliative care following/input appreciated. -Out of bed daily. Continue physical therapy Adjustment disorder with flat affect and possible depression-continue Lexapro DVT prophylaxis: avoid chemical anticoagulation given coagulopathy and thrombocytopenia Discharge Planning: CM assist with discharge planning, (1) Liver cirrhosis Qualifiers: Hepatic cirrhosis type: other cirrhosis Qualified Code(s): K74.69 - Other cirrhosis of liver
[2018-06-25] MEDS: Escitalopram 10 MG Tablet PO SCH (21:58)
[2018-06-26 08:14] LABS: Baso % (Auto) 0.2 % (0.0-2.0); Eos % (Auto) 0.2 % (0.0-4.0); Hematocrit 32.2 % (39.0-51.0); Hemoglobin 10.9 gm/dL (13.0-17.0); Lymph # (Auto) 0.6 th/mm3 (1.0-4.8); Lymph % (Auto) 9.6 % (9.0-44.0); Mean Corpuscular HGB Conc 33.8 % (32.0-36.0); Mean Corpuscular Hemoglobin 42.7 pg (27.0-34.0); Mean Corpuscular Volume 126.1 fL (80.0-100.0); Mean Platelet Volume 9.4 fL (7.0-11.0); Mono # (Auto) 0.5 th/mm3 (0.0-0.9); Mono % (Auto) 7.8 % (0.0-8.0); Neut % (Auto) 82.2 % (16.0-70.0); Platelet Count 45 th/mm3 (150-450); Red Blood Count 2.55 mil/mm3 (4.50-5.90); Red Cell Distribution Width 24.9 % (11.6-17.2); White Blood Count 6.1 th/mm3 (4.0-11.0)
[2018-06-26 08:29] LABS: Calcium 8.5 mg/dL (8.5-10.1); Carbon Dioxide 26.2 meq/L (21.0-32.0); Potassium 4.5 meq/L (3.5-5.1)
[2018-06-26] MEDS: Tenofovir 300 MG Tablet PO SCH (09:01)
[2018-06-26 09:02] LABS: Dimorphic RBC Present; Lymphocytes 2 % (9-44); Monocytes 2 % (0-8); Myelocytes 1 % (0-0); Polychromasia 3.2 % (0.0-1.9)
[2018-06-26] MEDS: Sodium Chloride 0.9% 2 ML Flush BID IV.FLUSH SCH ×2 (09:02→21:40)
[2018-06-26 09:03] LABS: Ovalocytes 1+; Platelet Morphology Normal (Normal); Spherocytes Occ; Tear Drop Cells 1+
[2018-06-26] MEDS: rifAXIMin 550 MG Tablet PO SCH ×2 (09:13→21:39)
--- NOTE | 2018-06-26 11:28 | P.PNIM ---
Subjective Interval history: Follow-up for encephalopathy No change in mental status, sleeping but easily awakes. Still very tremulous. Disoriented. No overnight events. Physical Exam Vital signs: Vital Signs 06/25/18 12:00 06/25/18 16:00 06/25/18 21:55 Temperature 97.5 F L 97.7 F 97.9 F Pulse Rate 97 H 91 H 103 H Respiratory Rate 14 14 16 Blood Pressure 106/60 98/64 L 82/46 L Pulse Oximetry 97 99 96 06/26/18 00:00 06/26/18 04:00 06/26/18 08:00 Temperature 99.2 F 99.0 F 97.5 F L Pulse Rate 98 H 90 72 Respiratory Rate 18 18 18 Blood Pressure 106/64 115/70 122/58 L Pulse Oximetry 96 97 98 Intake & Output 06/25/18 06/26/18 06/26/18 18:59 06:59 18:59 Intake Total 1400 / 1400 Output Total 200 / 200 Balance 1200 / 1200 Weight 71.5 kg Intake: IV 1400 / 1400 NS Inj 1,000 ML @ 70 mls/hr IV. 1400 / 1400 SIG .[id number] Rx#:[id number] Output: Urine 200 / 200 Other: # Voids 1 # Incontinent Voids 4 Date of Last Bowel Movement 06/25/18 06/25/18 06/25/18 # Bowel Movements 1 # Incontinent Bowel Movements 1 Narrative: GENERAL: Not in distress. SKIN: Warm and dry. Jaundiced. Icteric sclera. Cardiovascularregular rate and rhythm Lungsclear to auscultation bilaterally, poor effort. Abdomensoft nontender nondistended normoactive bowel sounds NEUROLOGICAL: Awake, oriented to self ,? place but not to time. Does not follow any commands SKIN: Area of ecchymosis above the left eyebrow with abrasion from fall, patient also has a new abrasion on the right forearm. - Urinary Catheter Management Condom Cath placed during this visit: no Results - Labs CBC & Chem 7: 06/26/18 06:49 06/26/18 06:49 Laboratory Results - last 24 hr 06/25/18 06/26/18 06/26/18 22:12 06:49 06:49 WBC 6.1 RBC 2.55 L Hgb 10.9 L Hct 32.2 L MCV 126.1 H MCH 42.7 H MCHC 33.8 RDW 24.9 H Plt Count 45 L MPV 9.4 Prelim Diff (Auto) Slide review pending Neut % (Auto) 82.2 H Lymph % (Auto) 9.6 [place] % (Auto) 7.8 Eos % (Auto) 0.2 Baso % (Auto) 0.2 Neut # (Auto) 5.0 Lymph # (Auto) 0.6 L [place] # (Auto) 0.5 Eos # (Auto) 0.0 Baso # (Auto) 0.0 WBC Differential Manual diff final Seg Neuts % (Manual) 74 H Band Neuts % (Manual) 21 H Lymphocytes % (Manual) 2 L Monocytes % (Manual) 2 Myelocytes % (Man) 1 H Abs Neuts (Manual) 5.9 Differential Comment . Platelet Estimate Low L Platelet Morphology Normal Dimorphic RBCs Present H Polychromasia 3.2 H Spherocytes Occ H Tear Drop Cells 1+ H Ovalocytes 1+ H Sodium 144 Potassium 4.5 Chloride 112 H Carbon Dioxide 26.2 Anion Gap 6 BUN 34 H Creatinine 1.20 Estimated GFR 63 L POC Glucose 130 H Random Glucose 77 Calcium 8.5 Assessment and Plan - Assessment (1) Liver cirrhosis Code(s): K74.60 - Unspecified cirrhosis of liver Status: Acute (2) Hep C w/o coma, chronic Code(s): B18.2 - Chronic viral hepatitis C Status: Chronic - Plan This is a 58 y/o male with history of Hep B, Hep C, and liver cirrhosis admitted on 04/29 after being transferred from [facility] for staghorn renal calculus complicated by UTI. Urology deemed no surgical intervention needed but will need a PCNL in the future as an outpatient. Now pending placement as patient is currently homeless. Continue supportive care await placement. Encourage patient to participate in physical activity and be awake during the daytime. Encourage p.o. intake. Dietitian was consulted and recommended gerardo estrada. Overall, patient is declining and palliative care is following. We will also reconsult Neuropsychiatry, Dr. Mac to evaluate for capacity as patient's mental status continues to wax and wane. Currently will have shared decision making with his family. Brother at this time does not want him to return to their home upon discharge. Status post fall 06/[address] of the brain. Left forehead abrasion from [facility]. Nephrolithiasis with UTI -Per urology will need PCNL as an outpatient. Urine culture from 04/30 done at [place] growing Shante glabrata, recent UA 05/07 - no growth in 48 hrs. S/p PO Diflucan treatment for total of 2 weeks. Malnutritionpatient with poor p.o. appetite is on Megace, dietitian following. Pancytopenia, macrocytic anemia. HIV negative, s/p multiple cryoprecipitate transfusions, 2/2 liver disease and splenomegaly, evaluated by Heme/onc , stable for dc. Start on Folate -Outpatient follow-up with hematology ETOH Liver cirrhosis/HCV/HBV S/p treatment with Harvoni and recently tenofovir was prescribed by GI with diagnosis of hepatitis B. The patient was apparently not compliant. Previously worked up in [facility] for liver transplant 2016 but unfortunately was not a candidate due to social issues and lack of support. Last EGD and colonoscopy in November 2016, portal hypertensive gastropathy noted on EGD otherwise both exams were normal. Continue rifaximin, lactulose which patient has refused to take at times, rifaximin.Nadolol on hold due to low-normal BP's. Tenofovir per GI for hepatitis B. -T bilirubin has been trending up as liver cirrhosis likely progressing. Patient with poor prognosis. Palliative on board to assist with short-term or long-term goals Hypotension- off nadolol because of hypotention, continue to monitor, BP improving, stop midodrine today Acute renal failure/Hypokalemia- resolved, hold diuretics. Resume when needed. Appears euvolemic at this time. Poor PO intake- ADAT. Ensure, Megace. Chronic hepatic encephalopathy -Continue Xifaxan and lactulose. -Cognitive evaluation performed by Dr. Mac neuropsychiatry on 05/27, patient does have medical decision capacity. He will need assistance upon discharge based on having mild cognitive disorder. Generalized weakness Palliative care following/input appreciated. -Out of bed daily. Continue physical therapy Adjustment disorder with flat affect and possible depression-continue Lexapro DVT prophylaxis: avoid chemical anticoagulation given coagulopathy and thrombocytopenia Discharge Planning: CM assist with discharge planning, patient is homeless. Palliative care following, still "wants to live", full code. (1) Liver cirrhosis Qualifiers: Hepatic cirrhosis type: other cirrhosis Qualified Code(s): K74.69 - Other cirrhosis of liver
[2018-06-26] MEDS: Ferrous Sulfate 325 MG Tablet PO SCH ×2 (13:27→17:27)
[2018-06-26] MEDS: Escitalopram 10 MG Tablet PO SCH (21:39)
[2018-06-27] MEDS ORDERED: Albumin Human 25% Inj 100 ML IV.SIG ONE ×2 (05:22→20:24)
[2018-06-27] MEDS ORDERED: Sodium Chlor 0.9% Inj 250 ML IV.SIG ONE ×2 (05:23→13:49)
[2018-06-27] MEDS ORDERED: MethylPREDNISolone Sod Succinate Inj 125 MG/2 ML Vial IV.PUSH ONE (06:57)
--- NOTE | 2018-06-27 08:12 | P.PN ---
Subjective Interval history: Follow up on patient with encephalopathy. Patient appears stable. Mental status unchanged. He remains disoriented. Tremulous. BP low despite receiving albumin and NS bolus. DW nursing status, no adverse events noted overnight except low BP. Physical Exam Vital signs: Vital Signs 06/26/18 13:37 06/26/18 16:00 06/26/18 20:00 Temperature 98.1 F 99.5 F Pulse Rate 110 H 110 H Respiratory Rate 16 14 18 Blood Pressure 98/60 L 92/54 L 110/70 Pulse Oximetry 97 97 06/27/18 00:47 06/27/18 04:51 Temperature 97.9 F 98.2 F Pulse Rate 101 H 102 H Respiratory Rate 16 Blood Pressure 104/58 L 74/48 L Pulse Oximetry 98 96 Intake & Output 06/26/18 06/27/18 06/27/18 18:59 06:59 18:59 Intake Total Balance Weight 71.6 kg Intake: IV NS Inj 250 ML @ Wide Open IV. SIG BOLUS ONE Rx#:[id number] Other: # Incontinent Voids 2 Date of Last Bowel Movement 06/26/18 06/26/18 # Bowel Movements 2 Narrative: GENERAL: Thin chronically ill appearing male patient, INAD. Disoriented. Somnolent. Opens eyes to voice. Nonverbal. Does not follow commands. SKIN: Warm and dry. +Jaundiced. HEAD: Normocephalic. +small area of ecchymosis left side above left eyebrow. EYES: Pupils equal and round. +bilateral scleral icterus. No injection or drainage. ENT: No nasal bleeding or discharge. Dry mucus membranes. NECK: Trachea midline. CARDIOVASCULAR: Regular rate and rhythm. RESPIRATORY: No accessory muscle use. Poor effort. Clear to auscultation anteriorly. Breath sounds equal bilaterally. GASTROINTESTINAL: Abdomen soft, non-tender, nondistended. +Normoactive BS. MUSCULOSKELETAL: Extremities without clubbing, cyanosis, or edema. No obvious deformities. NEUROLOGICAL: Somnolent. Tremulous. Does not follow commands. No obvious cranial nerve deficits. Moves all extremities spontaneously. PSYCHIATRIC: unable to assess due to patients mental condition - Urinary Catheter Management Condom Cath placed during this visit: no Results - Labs CBC & Chem 7: 06/26/18 06:49 06/26/18 06:49 Laboratory Results - last 24 hr 06/26/18 06/26/18 06:49 06:49 WBC 6.1 RBC 2.55 L Hgb 10.9 L Hct 32.2 L MCV 126.1 H MCH 42.7 H MCHC 33.8 RDW 24.9 H Plt Count 45 L MPV 9.4 Prelim Diff (Auto) Slide review pending Neut % (Auto) 82.2 H Lymph % (Auto) 9.6 [place] % (Auto) 7.8 Eos % (Auto) 0.2 Baso % (Auto) 0.2 Neut # (Auto) 5.0 Lymph # (Auto) 0.6 L [place] # (Auto) 0.5 Eos # (Auto) 0.0 Baso # (Auto) 0.0 WBC Differential Manual diff final Seg Neuts % (Manual) 74 H Band Neuts % (Manual) 21 H Lymphocytes % (Manual) 2 L Monocytes % (Manual) 2 Myelocytes % (Man) 1 H Abs Neuts (Manual) 5.9 Differential Comment . Platelet Estimate Low L Platelet Morphology Normal Dimorphic RBCs Present H Polychromasia 3.2 H Spherocytes Occ H Tear Drop Cells 1+ H Ovalocytes 1+ H Sodium 144 Potassium 4.5 Chloride 112 H Carbon Dioxide 26.2 Anion Gap 6 BUN 34 H Creatinine 1.20 Estimated GFR 63 L Random Glucose 77 Calcium 8.5 Microbiology 06/26/18 21:50 Stool Stool Occult Blood (SHARI) - Final Hemoccult negative Assessment and Plan - Assessment (1) Liver cirrhosis Code(s): K74.60 - Unspecified cirrhosis of liver Status: Acute (2) Hep C w/o coma, chronic Code(s): B18.2 - Chronic viral hepatitis C Status: Chronic - Plan 58 y/o male with history of Hep B, Hep C, and liver cirrhosis admitted on 04/29 after being transferred from [facility] for staghorn renal calculus complicated by UTI. Urology deemed no surgical intervention needed but will need a PCNL in the future as an outpatient. Now pending placement as patient is currently homeless. Continue supportive care await placement. Encourage patient to participate in physical activity and be awake during the daytime. Encourage p.o. intake. Overall, patient is declining and palliative care is following. We will also reconsult Neuropsychiatry, Dr. Mac to evaluate for capacity as patient's mental status continues to wax and wane. Currently will have shared decision making with his family. Brother at this time does not want him to return to their home upon discharge. Status post fall 06/[address] of the brain. Left forehead abrasion from [facility] -fall precautions Nephrolithiasis with UTI -Per urology will need PCNL as an outpatient. Urine culture from 04/30 done at [place] growing Shante glabrata, recent UA 05/07 - no growth in 48 hrs. S/p PO Diflucan treatment for total of 2 weeks. Malnutrition patient with poor p.o. appetite -Continue on Megace -Dietitian following, recommends [place] essentials TID, yogurt BID and daily snack Pancytopenia, macrocytic anemia. HIV negative, s/p multiple cryoprecipitate transfusions, 2/2 liver disease and splenomegaly, evaluated by Heme/onc , stable for dc. -continue on Folate -Outpatient follow-up with hematology ETOH Liver cirrhosis/HCV/HBV S/p treatment with Harvoni and recently tenofovir was prescribed by GI with diagnosis of hepatitis B. The patient was apparently not compliant. Previously worked up in [facility] for liver transplant 2016 but unfortunately was not a candidate due to social issues and lack of support. Last EGD and colonoscopy in November 2016, portal hypertensive gastropathy noted on EGD otherwise both exams were normal. Continue rifaximin, lactulose which patient has refused to take at times. Nadolol on hold due to low-normal BP's. Tenofovir per GI for hepatitis B. -T bilirubin has been trending up as liver cirrhosis likely progressing. Patient with poor prognosis. Palliative on board to assist with short-term or long-term goals Hypotension- off nadolol because of hypotension -BP dropped off Midodrine. BP 74/48. MAP 56. Given IVF bolus and Albumin. BP still low at 86/47, second small IVF bolus ordered. Resume Midodrine. -appears dry on exam. BUN 34 - continue on IVF hydration x 1L following IVF bolus. Acute on chronic hepatic encephalopathy, suspect secondary to hyperammonemia and dehydration/poor po intake -Continue Xifaxan and lactulose. Patient not on lactulose since 06/21. Appears somnolent on exam. STAT ammonia level ordered. Resume lactulose now. Give IVF hydration. -Cognitive evaluation performed by Dr. Mac neuropsychiatry on 05/27, patient does have medical decision capacity. He will need assistance upon discharge based on having mild cognitive disorder. Reconsult requested to assess capacity as patients mentation waxes and wanes. Generalized weakness Palliative care following/input appreciated. -Out of bed daily. Continue physical therapy Acute renal failure/Hypokalemia- resolved, hold diuretics. Resume when needed. Adjustment disorder with flat affect and possible depression -continue Lexapro Dysphagia -speech therapy following. Continue on puree diet with nectar thick liquids per recommendations Hypoglycemia, suspect secondary to poor po intake -accucheks ordered -hypoglycemic protocol DVT prophylaxis: avoid chemical anticoagulation given coagulopathy and thrombocytopenia Code Status: Full Discussed Condition With: patient, nursing staff Discharge Planning: CM assisting with discharge planning. Patient is homeless. Unable to care for himself. Might be appropriate for Hospice. Palliative care following. (1) Liver cirrhosis Qualifiers: Hepatic cirrhosis type: other cirrhosis Qualified Code(s): K74.69 - Other cirrhosis of liver
[2018-06-27] MEDS: Folic Acid 1 MG Tablet PO SCH (09:13)
[2018-06-27] MEDS: Tenofovir 300 MG Tablet PO SCH (09:13)
[2018-06-27] MEDS: rifAXIMin 550 MG Tablet PO SCH ×2 (09:14→21:50)
[2018-06-27] MEDS: Sodium Chloride 0.9% 2 ML Flush BID IV.FLUSH SCH ×2 (09:14→21:51)
[2018-06-27] MEDS: Ferrous Sulfate 325 MG Tablet PO SCH ×2 (12:35→17:58)
[2018-06-27] MEDS ORDERED: Sod Chloride 0.9% Inj 1,000 ML IV.CONT SCH (16:45)
[2018-06-27] MEDS ORDERED: Dextrose 50% in Water 50 ML Vial IV.PUSH PRN (16:49)
[2018-06-27] MEDS: Escitalopram 10 MG Tablet PO SCH (21:50)
[2018-06-28 00:35] LABS: Bacteria,Urine Few /hpf; Bilirubin,Urine Moderate (Negative); Clarity,Urine Cloudy (Clear); Color,Urine Amber (Yellw/Straw); Glucose,Urine (UA) Negative (Negative); Hyaline Casts,Urine 102 /lpf (0-3); Leukocyte Esterase,Urine Moderate (Negative); Mucus,Urine Moderate /lpf (Occasional); Nitrite,Urine Negative (Negative); Specific Gravity,Urine 1.018 (1.002-1.035); Squamous Epithelial Cell,Urine 2 /hpf (0-5); Urobilinogen,Urine 4 or Greater mg/dL (Less than 2)
[2018-06-28 00:36] LABS: Ictotest,Urine Positive (Negative)
[2018-06-28 07:29] LABS: Baso % (Auto) 0.1 % (0.0-2.0); Carbon Dioxide 23.9 meq/L (21.0-32.0); Eos % (Auto) 0.2 % (0.0-4.0); Hematocrit 26.9 % (39.0-51.0); Hemoglobin 9.2 gm/dL (13.0-17.0); Lymph # (Auto) 0.3 th/mm3 (1.0-4.8); Lymph % (Auto) 7.4 % (9.0-44.0); Mean Corpuscular HGB Conc 34.3 % (32.0-36.0); Mean Corpuscular Hemoglobin 43.3 pg (27.0-34.0); Mean Corpuscular Volume 126.3 fL (80.0-100.0); Mean Platelet Volume 9.2 fL (7.0-11.0); Mono # (Auto) 0.3 th/mm3 (0.0-0.9); Mono % (Auto) 7.2 % (0.0-8.0); Neut # (Auto) 3.6 th/mm3 (1.8-7.7); Neut % (Auto) 85.1 % (16.0-70.0); Platelet Count 35 th/mm3 (150-450); Potassium 4.7 meq/L (3.5-5.1); Red Blood Count 2.13 mil/mm3 (4.50-5.90); Red Cell Distribution Width 23.9 % (11.6-17.2); White Blood Count 4.2 th/mm3 (4.0-11.0)
--- NOTE | 2018-06-28 07:48 | P.PN ---
Subjective Interval history: Follow-up on patient with encephalopathy. Patient remains unchanged. He opens his eyes to voice but does not verbally respond. He does not follow commands. He appears disoriented. Remains tremulous in the bed. Discussed with nursing staff, no adverse events noted overnight. Physical Exam Vital signs: Vital Signs 06/27/18 08:00 06/27/18 12:00 06/27/18 16:00 Temperature 97.4 F L 97.6 F 98 F Pulse Rate 70 101 H 110 H Respiratory Rate 18 20 20 Blood Pressure 90/60 L 87/67 L 91/51 L Pulse Oximetry 96 97 95 06/27/18 20:00 06/28/18 00:00 06/28/18 04:00 Temperature 99.2 F 99.3 F 99.2 F Pulse Rate 104 H 101 H 105 H Respiratory Rate 18 18 18 Blood Pressure 82/58 L 90/60 L 90/58 L Pulse Oximetry 97 97 97 Intake & Output 06/27/18 06/28/18 06/28/18 18:59 06:59 18:59 Intake Total 750 / 750 100 / 100 Balance 750 / 750 100 / 100 Weight 67.9 kg Intake: IV 350 / 350 100 / 100 Flexbumin 25% Inj 100 ML @ 60 100 / 100 100 / 100 mls/hr IV.SIG ONCE ONE Rx#: [id number] NS Inj 250 ML @ Wide Open IV. 250 / 250 SIG BOLUS ONE Rx#:[id number] Oral 400 / 400 Other: # Incontinent Voids 2 1 Date of Last Bowel Movement 06/27/18 06/27/18 Narrative: GENERAL: Thin chronically ill appearing male patient, INAD. Somnolent. Opens eyes to voice. Nonverbal. Does not follow commands. Tremulous. SKIN: Warm and dry. +Jaundiced. HEAD: Normocephalic. +small area of ecchymosis left side above left eyebrow. EYES: Pupils equal and round. +bilateral scleral icterus. No injection or drainage. ENT: No nasal bleeding or discharge. Dry mucus membranes. NECK: Trachea midline. CARDIOVASCULAR: Regular rate and rhythm. RESPIRATORY: No accessory muscle use. Poor effort. Clear to auscultation anteriorly. Breath sounds equal bilaterally. GASTROINTESTINAL: Abdomen soft, non-tender, nondistended. +Normoactive BS. MUSCULOSKELETAL: Extremities without clubbing, cyanosis, or edema. No obvious deformities. NEUROLOGICAL: Somnolent. Opens eyes to voice. Nonverbal. Tremulous. Does not follow commands. No obvious cranial nerve deficits. Moves all extremities spontaneously. PSYCHIATRIC: unable to assess due to patients mental condition - Urinary Catheter Management Condom Cath placed during this visit: no Results - Labs CBC & Chem 7: 06/28/18 04:05 06/28/18 04:05 Laboratory Results - last 24 hr 06/27/18 06/27/18 06/27/18 17:27 18:55 21:49 Sodium Potassium Chloride Carbon Dioxide Anion Gap BUN Creatinine Estimated GFR POC Glucose 88 114 H Random Glucose Calcium Ammonia 41 H Urine Color Urine Clarity Urine pH Ur Specific [place] Urine Protein Urine Glucose (UA) Urine Ketones Urine Occult Blood Urine Nitrate Urine Bilirubin Urine Ictotest Urine Urobilinogen Ur Leukocyte Esterase Urine RBC Urine WBC Ur Squamous Epith Cells Urine Bacteria Hyaline Casts Granular Casts Urine Mucus Urine Yeast Micro UA Comment Ur Microscopic Review Urine Culture Comments 06/28/18 06/28/18 06/28/18 00:00 03:21 04:05 Sodium 148 H Potassium 4.7 Chloride 115 H Carbon Dioxide 23.9 Anion Gap 9 BUN 53 H Creatinine 1.57 H Estimated GFR 46 L POC Glucose 146 H Random Glucose 97 Calcium 9.0 Ammonia Urine Color Ros[place]ba Urine Clarity Cloudy H Urine pH 6.0 Ur Specific [place] 1.018 Urine Protein 30 H Urine Glucose (UA) Negative Urine Ketones Negative Urine Occult Blood Large H Urine Nitrate Negative Urine Bilirubin Moderate H Urine Ictotest Positive H Urine Urobilinogen 4 or greater Ur Leukocyte Esterase Moderate H Urine RBC Urine WBC 155 H Ur Squamous Epith Cells 2 Urine Bacteria Few H Hyaline Casts 102 Granular Casts 61 Urine Mucus Moderate H Urine Yeast Many H Micro UA Comment Cath-culture ind Ur Microscopic Review Not Reportable Urine Culture Comments Cath-cult indicated 06/28/18 07:16 Sodium Potassium Chloride Carbon Dioxide Anion Gap BUN Creatinine Estimated GFR POC Glucose 103 Random Glucose Calcium Ammonia Urine Color Urine Clarity Urine pH Ur Specific [place] Urine Protein Urine Glucose (UA) Urine Ketones Urine Occult Blood Urine Nitrate Urine Bilirubin Urine Ictotest Urine Urobilinogen Ur Leukocyte Esterase Urine RBC Urine WBC Ur Squamous Epith Cells Urine Bacteria Hyaline Casts Granular Casts Urine Mucus Urine Yeast Micro UA Comment Ur Microscopic Review Urine Culture Comments Assessment and Plan - Assessment (1) Liver cirrhosis Code(s): K74.60 - Unspecified cirrhosis of liver Status: Acute (2) Hep C w/o coma, chronic Code(s): B18.2 - Chronic viral hepatitis C Status: Chronic - Plan 58 y/o male with history of Hep B, Hep C, and liver cirrhosis admitted on 04/29 after being transferred from [facility] for staghorn renal calculus complicated by UTI. Urology deemed no surgical intervention needed but will need a PCNL in the future as an outpatient. Now pending placement as patient is currently homeless. Continue supportive care await placement. Overall, patient is declining and palliative care is following. We will also reconsult Neuropsychiatry, Dr. Mac to evaluate for capacity as patient's mental status continues to wax and wanes. Currently will have shared decision making with his family per palliative care. Brother at this time does not want him to return to their home upon discharge. Appears more appropriate for hospice at this time. Acute on chronic hepatic encephalopathy, suspect secondary to hyperammonemia and dehydration/poor po intake -Continue Xifaxan and lactulose. Patient not on lactulose since 06/21. STAT ammonia level ordered - 41. Lactulose resumed, goal 2-3 soft BMs daily. +BM x 1 yesterday morning. -Cognitive evaluation performed by Dr. Mac neuropsychiatry on 05/27, patient does have medical decision capacity. He will need assistance upon discharge based on having mild cognitive disorder. Reconsult requested to assess capacity as patients mentation waxes and wanes. -obtain B12 level. Start on Thiamine replacement. UTI UA suggestive of UTI with moderate leukocytes, 155 white blood cells, few bacteria, culture indicated -Start on IV ceftriaxone -Follow-up on final urine culture results LUCAS suspect multifactorial in patient with poor p.o. intake and suspected UTI. May be contributing to patient's altered mental status. Creatinine up to 1.57, BUN 53 -Continue with IV fluid hydration -IV antibiotics for UTI as stated above -Avoid nephrotoxic agents -Continue to monitor kidney function closely, repeat lab in a.m. ETOH Liver cirrhosis/HCV/HBV S/p treatment with Harvoni and recently tenofovir was prescribed by GI with diagnosis of hepatitis B. The patient was apparently not compliant. Previously worked up in [facility] for liver transplant 2016 but unfortunately was not a candidate due to social issues and lack of support. Last EGD and colonoscopy in November 2016, portal hypertensive gastropathy noted on EGD otherwise both exams were normal. Continue rifaximin, lactulose which patient has refused to take at times. Nadolol on hold due to low-normal BP's. Tenofovir per GI for hepatitis B. -T bilirubin has been trending up as liver cirrhosis likely progressing. -Patient with poor prognosis. Palliative on board to assist with short-term or long-term goals. Status post fall 06/[address] of the brain. Left forehead abrasion from fall local wound care -fall precautions Nephrolithiasis with UTI -Per urology will need PCNL as an outpatient. Urine culture from 04/30 done at [place] growing Shante glabrata, recent UA 05/07 - no growth in 48 hrs. S/p PO Diflucan treatment for total of 2 weeks. Malnutrition patient with poor p.o. appetite -Continue on Megace -Dietitian following, recommends [place] essentials TID, yogurt BID and daily snack Pancytopenia, macrocytic anemia. HIV negative, s/p multiple cryoprecipitate transfusions, 2/2 liver disease and splenomegaly, evaluated by Heme/onc , stable for dc. -continue on Folate -Outpatient follow-up with hematology -monitor INR Hypotension- off nadolol because of hypotension -BP dropped off Midodrine. BP 74/48. MAP 56. Treated with IVF bolus and Albumin. Midodrine resumed. BP improved some, continue Midodrine. Hypernatremia Na 148 -start D5 1/2NS gentle IV hydration -repeat Na level in am Generalized weakness Palliative care following/input appreciated. May be appropriate for hospice. -Out of bed daily. Continue physical therapy Acute renal failure/Hypokalemia- resolved, hold diuretics. Resume when needed. Adjustment disorder with flat affect and possible depression -continue Lexapro Dysphagia -speech therapy following. Continue on puree diet with nectar thick liquids per recommendations Hypoglycemia, suspect secondary to poor po intake -accucheks ordered -hypoglycemic protocol DVT prophylaxis: avoid chemical anticoagulation given coagulopathy and thrombocytopenia Code Status: Full Discussed Condition With: patient, nursing staff Discharge Planning: CM assisting with discharge planning. Patient is homeless. Unable to care for himself. Might be appropriate for Hospice. Palliative care following. (1) Liver cirrhosis Qualifiers: Hepatic cirrhosis type: other cirrhosis Qualified Code(s): K74.69 - Other cirrhosis of liver
[2018-06-28 08:23] LABS: Lymphocytes 3 % (9-44); Monocytes 2 % (0-8); Toxic Vacuolation Present
[2018-06-28 08:24] LABS: Platelet Morphology Normal (Normal)
[2018-06-28] MEDS ORDERED: Sodium Chloride 0.45 % Inj 1,000 ML IV.CONT SCH (09:15)
[2018-06-28] MEDS: rifAXIMin 550 MG Tablet PO SCH ×2 (09:30→21:41)
[2018-06-28] MEDS: Folic Acid 1 MG Tablet PO SCH (09:30)
[2018-06-28] MEDS: Tenofovir 300 MG Tablet PO SCH (09:30)
[2018-06-28] MEDS: Sodium Chloride 0.9% 2 ML Flush BID IV.FLUSH SCH ×2 (09:31→21:42)
[2018-06-28] MEDS ORDERED: Sodium Chloride 23.4% Inj 38.5 MEQ in Water for Inj, Sterile 1,000 ML IV.CONT SCH (10:00)
[2018-06-28] MEDS: Ferrous Sulfate 325 MG Tablet PO SCH ×2 (12:01→17:28)
[2018-06-28] MEDS: Dextrose 5%/NaCl 0.45% Inj 1,000 ML IV.CONT SCH (12:52)
[2018-06-28 14:55] LABS: INR 3.7 Ratio; Prothrombin Time 36.9 sec (9.8-11.6)
--- NOTE | 2018-06-28 15:45 | XR ---
EXAM DATE: 06/28/2018 3:38 PM EST AGE/SEX: 58 years / Male INDICATIONS: Nausea and vomitting. CLINICAL DATA: This is the patient's initial encounter. Patient reports that signs and symptoms have been present for 1 day and indicates a pain score of Nonresponsive. MEDICAL/SURGICAL HISTORY: . Hepatitis C. Cholecystectomy. . COMPARISON: [facility] [place]OMEN 1V KUB, 05/06/2018. . FINDINGS: There is a double-J right ureteral stent in place. Redemonstration of staghorn calculus on the right . Stool seen throughout the colon. No dilated loops of small bowel. Stomach is moderately distended. Remainder of exam is unchanged. CONCLUSION: 1. Moderate gaseous distention of the stomach. 2. Otherwise, nonobstructive bowel gas pattern. 3. Mild to moderate stool throughout the colon consistent with some degree of constipation. 4. Double-J right ureteral stent with redemonstration of right-sided staghorn calculus. Electronically signed by: Horace Sy MD 06/28/2018 3:44 PM EST
--- NOTE | 2018-06-28 15:58 | CT ---
EXAM DATE: 06/28/2018 3:53 PM EST AGE/SEX: 58 years / Male INDICATIONS: Altered mental status. CLINICAL DATA: This is the patient's initial encounter. Patient reports that signs and symptoms have been present for 1 day and indicates a pain score of Nonresponsive. MEDICAL/SURGICAL HISTORY: Hepatitis C. Cholecystectomy. RADIATION DOSE: 35.80 CTDI (mGy) COMPARISON: [facility] – [place], CT HEAD W/O CONTRAST, 06/21/2018. . TECHNIQUE: CT of the head without contrast. Using automated exposure control and adjustment of the mA and/or kV according to patient size, radiation dose was kept as low as reasonably achievable to ob tain optimal diagnostic quality images. DICOM format image data is available electronically for revi ew and comparison. FINDINGS: Examination is limited by motion. Cerebrum: Mild diffuse cerebral atrophy. The ventricles are normal for degree of atrophy. Mild periv entricular white matter hypodensities. No evidence of midline shift, mass lesion, hemorrhage or acute infarction. No extraaxial fluid collections are seen. Posterior Fossa: The cerebellum and brainstem are intact. The 4th ventricle is midline. The cerebe llopontine angle is unremarkable. Extracranial: The visualized portion of the orbits is intact. Small mucous retention cyst in the ant erior left maxillary sinus. Skull: The calvaria is intact. No evidence of skull fracture. CONCLUSION: 1. Stable mild diffuse cerebral atrophy and periventricular ischemic white matter demyelination. 2. No acute intracranial abnormality. . Electronically signed by: Horace Sy MD 06/28/2018 3:57 PM EST
[2018-06-28] MEDS ORDERED: Bisacodyl 10 MG Supp RECTAL ONE (16:15)
[2018-06-28] MEDS: Escitalopram 10 MG Tablet PO SCH (21:41)
[2018-06-28] MEDS: Senna/Docusate Sodium 8.6/50 MG Tablet PO SCH (21:42)
--- NOTE | 2018-06-29 07:39 | P.PN ---
Subjective Interval history: Follow-up on patient with encephalopathy, end stage liver disease. Patient seen and examined. Patient remains unchanged. He is non communicative for the most part. Will open his eyes briefly to voice but is nonverbal. Does not follow commands. Remains tremulous. Physical Exam Vital signs: Vital Signs 06/28/18 08:00 06/28/18 12:00 06/28/18 16:00 Temperature 98.5 F 97.3 F L 98 F Pulse Rate 105 H 102 H 100 H Respiratory Rate 20 20 20 Blood Pressure 97/53 L 101/62 109/60 Pulse Oximetry 98 98 98 06/28/18 20:00 06/29/18 00:00 06/29/18 04:00 Temperature 98.5 F 98.6 F 98.1 F Pulse Rate 84 108 H 110 H Respiratory Rate 18 18 18 Blood Pressure 90/55 L 90/59 L 90/53 L Pulse Oximetry 97 95 97 Intake & Output 06/28/18 06/29/18 06/29/18 18:59 06:59 18:59 Intake Total 1204 / 1204 0 / 0 Output Total 3 / 3 200 / 200 Balance 1201 / 1201 -200 / -200 0 / 0 Weight 67.8 kg Intake: IV 1204 / 1204 0 / 0 NS Inj 1,000 ML @ 84 mls/hr IV. 1000 / 1000 CONT .[id number] NIRAJ Rx#:[id number] Rocephin Inj 1,000 MG In NS Inj 100 / 100 100 ML @ 200 mls/hr IV.SIG Q24H NIRAJ Rx#:[id number] Output: Urine 200 / 200 Stool 1 / Emesis 2 / 2 Other: Date of Last Bowel Movement 06/28/18 06/29/18 # Incontinent Bowel Movements 2 Narrative: GENERAL: Thin chronically ill appearing male patient. Somnolent. Opens eyes to voice. Does not follow commands. Nonverbal. Tremulous. Restless in bed. SKIN: Warm and dry. +Jaundiced. HEAD: Normocephalic. +small area of ecchymosis left side above left eyebrow. EYES: Pupils equal and round. +bilateral scleral icterus. No injection or drainage. ENT: No nasal bleeding or discharge. Dry mucus membranes. NECK: Trachea midline. CARDIOVASCULAR: Regular rate and rhythm. RESPIRATORY: No accessory muscle use. Poor effort. Fair air entry. GASTROINTESTINAL: Abdomen soft, non-tender, nondistended. MUSCULOSKELETAL: Extremities without clubbing, cyanosis, or edema. NEUROLOGICAL: Somnolent. Opens eyes to voice. Nonverbal. Tremulous. Does not follow commands. No obvious cranial nerve deficits. Moves all extremities spontaneously. PSYCHIATRIC: unable to assess due to patients mental condition - Urinary Catheter Management Condom Cath placed during this visit: no Results - Labs CBC & Chem 7: 06/29/18 10:16 06/29/18 14:38 Laboratory Results - last 24 hr 06/28/18 06/28/18 06/28/18 04:05 04:05 12:11 WBC 4.2 RBC 2.13 L Hgb 9.2 L Hct 26.9 L MCV 126.3 H MCH 43.3 H MCHC 34.3 RDW 23.9 H Plt Count 35 L MPV 9.2 Prelim Diff (Auto) Slide review pending Neut % (Auto) 85.1 H Lymph % (Auto) 7.4 L Dickson % (Auto) 7.2 Eos % (Auto) 0.2 Baso % (Auto) 0.1 Neut # (Auto) 3.6 Lymph # (Auto) 0.3 L Dickson # (Auto) 0.3 Eos # (Auto) 0.0 Baso # (Auto) 0.0 WBC Differential Manual diff final Seg Neuts % (Manual) 83 H Band Neuts % (Manual) 12 H Lymphocytes % (Manual) 3 L Monocytes % (Manual) 2 Abs Neuts (Manual) 4.0 Differential Comment . Toxic Vacuolation Present H Platelet Estimate Low L Platelet Morphology Normal PT INR POC Glucose 128 H Vitamin B12 1975 H 06/28/18 06/28/18 06/28/18 14:21 18:22 22:03 WBC RBC Hgb Hct MCV MCH MCHC RDW Plt Count MPV Prelim Diff (Auto) Neut % (Auto) Lymph % (Auto) Dickson % (Auto) Eos % (Auto) Baso % (Auto) Neut # (Auto) Lymph # (Auto) Dickson # (Auto) Eos # (Auto) Baso # (Auto) WBC Differential Seg Neuts % (Manual) Band Neuts % (Manual) Lymphocytes % (Manual) Monocytes % (Manual) Abs Neuts (Manual) Differential Comment Toxic Vacuolation Platelet Estimate Platelet Morphology PT 36.9 H INR 3.7 POC Glucose 153 H 147 H Vitamin B12 06/29/18 03:10 WBC RBC Hgb Hct MCV MCH MCHC RDW Plt Count MPV Prelim Diff (Auto) Neut % (Auto) Lymph % (Auto) Dickson % (Auto) Eos % (Auto) Baso % (Auto) Neut # (Auto) Lymph # (Auto) Dickson # (Auto) Eos # (Auto) Baso # (Auto) WBC Differential Seg Neuts % (Manual) Band Neuts % (Manual) Lymphocytes % (Manual) Monocytes % (Manual) Abs Neuts (Manual) Differential Comment Toxic Vacuolation Platelet Estimate Platelet Morphology PT INR POC Glucose 142 H Vitamin B12 - Imaging Impressions Abdomen X-Ray 06/28/18 00:00 CONCLUSION: 1. Moderate gaseous distention of the stomach. 2. Otherwise, nonobstructive bowel gas pattern. 3. Mild to moderate stool throughout the colon consistent with some degree of constipation. 4. Double-J right ureteral stent with redemonstration of right-sided staghorn calculus. Head CT 06/28/18 00:00 CONCLUSION: 1. Stable mild diffuse cerebral atrophy and periventricular ischemic white matter demyelination. 2. No acute intracranial abnormality. . Assessment and Plan - Assessment (1) Liver cirrhosis Code(s): K74.60 - Unspecified cirrhosis of liver Status: Acute (2) Hep C w/o coma, chronic Code(s): B18.2 - Chronic viral hepatitis C Status: Chronic - Plan 58 y/o male with history of Hep B, Hep C, and liver cirrhosis admitted on 04/29 after being transferred from [facility] for staghorn renal calculus complicated by UTI. Urology deemed no surgical intervention needed but will need a PCNL in the future as an outpatient. Now pending placement as patient is currently homeless. Continue supportive care await placement. Overall, patient is declining and palliative care is following. We will also reconsult Neuropsychiatry, Dr. Mac to evaluate for capacity as patient's mental status continues to wax and wanes. Currently will have shared decision making with his family per palliative care. Brother at this time does not want him to return to their home upon discharge. Appears more appropriate for hospice at this time. Discussed with palliative care who discussed with family and have decided to continue with aggressive treatment. Acute on chronic hepatic encephalopathy, suspect secondary to hyperammonemia and dehydration/poor po intake -Continue Xifaxan and lactulose. Patient not on lactulose since 06/21. STAT ammonia level ordered - 41. Lactulose resumed, goal 2-3 soft BMs daily. +4 large BMs yesterday. -Cognitive evaluation performed by Dr. Mac neuropsychiatry on 05/27, patient does have medical decision capacity. He will need assistance upon discharge based on having mild cognitive disorder. Reconsult requested to assess capacity as patients mentation waxes and wanes. -B12 level 1974. Started on Thiamine replacement, continue. Dysphagia, secondary to acute encephalopathy -re-evaluated by speech therapy - severe oropharyngeal phase dysphagia. NPO. UTI UA suggestive of UTI with moderate leukocytes, 155 white blood cells, few bacteria, culture indicated -Started on IV ceftriaxone -Follow-up on final urine culture results LUCAS suspect multifactorial in patient with poor p.o. intake and suspected UTI. Possible hepatorenal syndrome. May be contributing to patient's altered mental status. Creatinine up to 1.57, BUN 53, repeat today 1.54 -Continue with IV fluid hydration -IV antibiotics for UTI as stated above -Avoid nephrotoxic agents -Continue to monitor kidney function closely ETOH Liver cirrhosis/HCV/HBV S/p treatment with Harvoni and recently tenofovir was prescribed by GI with diagnosis of hepatitis B. The patient was apparently not compliant. Previously worked up in [facility] for liver transplant 2016 but unfortunately was not a candidate due to social issues and lack of support. Last EGD and colonoscopy in November 2016, portal hypertensive gastropathy noted on EGD otherwise both exams were normal. Continue rifaximin, lactulose which patient has refused to take at times. Nadolol on hold due to low-normal BP's. Tenofovir per GI for hepatitis B. -T bilirubin has been trending up as liver cirrhosis likely progressing. Now 15.3 -Patient with poor prognosis. Palliative on board to assist with short-term or long-term goals. Status post fall 06/[address] of the brain. Left forehead abrasion from fall local wound care -fall precautions Nephrolithiasis with UTI -Per urology will need PCNL as an outpatient. Urine culture from 04/30 done at [place] growing Shante glabrata, recent UA 05/07 - no growth in 48 hrs. S/p PO Diflucan treatment for total of 2 weeks. Malnutrition patient with poor p.o. appetite -Continue on Megace - now NPO due to severe dysphagia -Dietitian following, recommends [place] essentials TID, yogurt BID and daily snack Pancytopenia, macrocytic anemia. HIV negative, s/p multiple cryoprecipitate transfusions, 2/2 liver disease and splenomegaly, evaluated by Heme/onc , stable for dc. -continue on Folate -Outpatient follow-up with hematology Coagulopathy secondary to progressive liver failure -INR 3.7 -give IV vitamin K -continue to monitor INR Hypotension- off nadolol because of hypotension -BP dropped off Midodrine. BP 74/48. MAP 56. Treated with IVF bolus and Albumin. Midodrine resumed. BP improved some, continue Midodrine. -now NPO, BP 78/40, increased rate of fluids. Will give IV Albumin. Hypernatremia Na 148 -started D5 1/2NS gentle IV hydration. Repeat Na 147. -repeat Na level in am Hyperkalemia, likely hemolyzed sample -K 5.5, repeat 4.5 -monitor K level Generalized weakness Palliative care following/input appreciated. May be appropriate for hospice. -Out of bed daily. Continue physical therapy Adjustment disorder with flat affect and possible depression -continue Lexapro Hypoglycemia, suspect secondary to poor po intake -accucheks ordered -hypoglycemic protocol DVT prophylaxis: avoid chemical anticoagulation given coagulopathy and thrombocytopenia Code Status: Full Discussed Condition With: patient, nursing staff, Thomas Rodriguez palliative care Discharge Planning: CM assisting with discharge planning. Patient is homeless. Unable to care for himself. Might be appropriate for Hospice. Palliative care following. (1) Liver cirrhosis Qualifiers: Hepatic cirrhosis type: other cirrhosis Qualified Code(s): K74.69 - Other cirrhosis of liver
[2018-06-29 08:36] LABS: Alkaline Phosphatase 67 U/L (45-117); Total Protein 5.5 g/dL (6.4-8.2)
[2018-06-29 08:50] LABS: Alanine Aminotransferase 50 U/L (12-78); Albumin 1.5 g/dL (3.4-5.0); Anion Gap 5 meq/L (5-15); Aspartate Aminotransferase 81 U/L (15-37); Blood Urea Nitrogen 58 mg/dL (7-18); Calcium 9.3 mg/dL (8.5-10.1); Carbon Dioxide 22.4 meq/L (21.0-32.0); Chloride 120 meq/L (98-107); Glomerular Filtration Rate 47 mL/min (>89); Glucose,Random 125 mg/dL (74-106); Potassium 5.5 meq/L (3.5-5.1); Sodium 147 meq/L (136-145)
[2018-06-29] MEDS: Tenofovir 300 MG Tablet PO SCH (08:59)
[2018-06-29] MEDS: Sodium Chloride 0.9% 2 ML Flush BID IV.FLUSH SCH ×2 (08:59→22:59)
[2018-06-29] MEDS: Senna/Docusate Sodium 8.6/50 MG Tablet PO SCH ×2 (08:59→22:59)
[2018-06-29] MEDS: Folic Acid 1 MG Tablet PO SCH (08:59)
[2018-06-29] MEDS: rifAXIMin 550 MG Tablet PO SCH ×2 (08:59→22:59)
--- NOTE | 2018-06-29 09:00 | US ---
EXAM DATE: 06/29/2018 8:54 AM EST AGE/SEX: 58 years / Male INDICATIONS: Left arm edema. CLINICAL DATA: This is the patient's initial encounter. Patient reports that signs and symptoms have been present for 1 day and indicates a pain score of Nonresponsive. MEDICAL/SURGICAL HISTORY: Hepatitis C. Liver disease. MDRO. Cholecystectomy. COMPARISON: No prior exams available for comparison. FINDINGS: The vessels are compressible and augmentation response is documented. No filling defects a re seen. The flow is phasic with respiration. Other: None. CONCLUSION: 1. No sonographic evidence for left upper extremity DVT. Electronically signed by: Horace Sy MD 06/29/2018 8:59 AM EST
[2018-06-29 11:01] LABS: Eos % (Auto) 0.2 % (0.0-4.0); Hematocrit 28.7 % (39.0-51.0); Hemoglobin 9.6 gm/dL (13.0-17.0); Lymph # (Auto) 0.3 th/mm3 (1.0-4.8); Lymph % (Auto) 5.1 % (9.0-44.0); Mean Corpuscular HGB Conc 33.4 % (32.0-36.0); Mean Corpuscular Volume 128.8 fL (80.0-100.0); Mean Platelet Volume 9.6 fL (7.0-11.0); Mono # (Auto) 0.4 th/mm3 (0.0-0.9); Mono % (Auto) 7.3 % (0.0-8.0); Neut # (Auto) 4.8 th/mm3 (1.8-7.7); Neut % (Auto) 87.4 % (16.0-70.0); Platelet Count 36 th/mm3 (150-450); Red Blood Count 2.23 mil/mm3 (4.50-5.90); Red Cell Distribution Width 24.1 % (11.6-17.2); White Blood Count 5.5 th/mm3 (4.0-11.0)
--- NOTE | 2018-06-29 12:01 | P.PNPAL ---
Reason for Visit Reason for visit: a. To assist with evaluation and management of symptoms including: Encephalopathy, pain b. To assist medical decision maker(s) with: better understanding of current medical conditions; weighing benefits/burdens of medical treatment options; making medical treatment decisions. Subjective Subjective/Interval History: This 58-year-old patient who was transferred here to [facility] from [facility] in [place] on 04/29/18. There he had gone for evaluation of right-sided abdominal pain on 04/28. He also presented with constipation and dark urine. Abdominal CT indicative of portal hypertension changes, cirrhotic liver, and 3.5 cm staghorn calculus right kidney with possible mild duodenitis and cholelithiasis. + pancytopenia, + UTI - started on zosyn IV. He was transferred to [facility] due to staghorn calculus w concomitant infection, and requiring a urologist evaluation. also noted to have chronic hep C, cirrhosis, stable Neuropsychiatry prev consulted to assist with determining if patient has capacity to make medical decisions. He had previously been deemed capacitated to make medical decisions however also was recommended for support outside of the hospital upon discharge due to cognitive deficits. . . Palliative care by medical attending notified that patient with further clinical deterioration. Seen today to follow-up on comfort, goals with patient and/or decision makers. Patient H&H stable, though platelets downtrending 36. Bilirubin significantly up trending since last week, 15.3. MELD 36m estimated 52,6% 3 mo mortality. A week ago tried to leave AMA and fell and struck his head- palliative care was reconsulted at that time, palliative continued to follow. CT brain negative for acute process. Poor appetite for the past week. More lethargic in the past week, more so in the past few days, minimally verbal. This am unable to safely swallow made NPO per medical attending. s.p ultrasound yesterday for LUE edema, neg for DVT. Patient seen today in room as ST completing evaluation. Patient too lethargic to adequately participate concern for aspiration n.p.o. Dual visit with Kristina Woody APRN. Very ill-appearing. Patient lethargic, slightly opens eyes during exam with verbal and touch stimuli however does not keep eyes open. Twitching type movement right eye. He does not follow any commands for me. He does not answer any questions or attempts to verbalize for me. He does appear to localize with extremities to touch. He is significantly jaundiced. Petechiae/ecchymosis widespread on his body. Fading ecchymosis just above left eyebrow. Discussed at length with medical attending SOHAN, and primary nurse. Following exam call to brother Arley, voicemail left. Called to other designated brother Clifton, spoke with him approximately 10-15 minutes review patient decline, underlying condition prognosis and possible trajectories. Review with him decisions will need to be made today regarding escalation of treatment versus de-escalation and possible transition to comfort focus. Review with him CODE STATUS and possible escalation /ICU and limitations of those interventions given patient underlying ES disease process. He endorses he will need to discuss things further with his brother Arley, other family before making any decisions, he will call back later when any decisions are made. Advance Directives Advance Directives Date on File: 05/07/18 Health Care Surrogate Name and Number: Names brother Arley Valadez (brett) Objective Vital Signs: Vital Signs 06/28/18 12:00 06/28/18 16:00 06/28/18 20:00 Temperature 97.3 F L 98 F 98.5 F Pulse Rate 102 H 100 H 84 Respiratory Rate 20 20 18 Blood Pressure 101/62 109/60 90/55 L Pulse Oximetry 98 98 97 06/29/18 00:00 06/29/18 04:00 06/29/18 08:00 Temperature 98.6 F 98.1 F 96.4 F L Pulse Rate 108 H 110 H 59 L Respiratory Rate 18 18 16 Blood Pressure 90/59 L 90/53 L 78/40 L Pulse Oximetry 95 97 94 L Intake & Output 06/28/18 06/29/18 06/29/18 18:59 06:59 18:59 Intake Total 1204 / 1204 100 / 100 Output Total 3 / 3 200 / 200 Balance 1201 / 1201 -200 / -200 100 / 100 Weight 67.8 kg Intake: IV 1204 / 1204 100 / 100 NS Inj 1,000 ML @ 84 mls/hr IV. 1000 / 1000 CONT .[id number] [facility] Rx#:[id number] Rocephin Inj 1,000 MG In NS Inj 100 / 100 100 / 100 100 ML @ 200 mls/hr IV.SIG Q24H NIRAJ Rx#:[id number] Output: Urine 200 / 200 Stool 1 / Emesis 2 / 2 Other: Date of Last Bowel Movement 06/28/18 06/29/18 06/29/18 # Incontinent Bowel Movements 2 Physical Exam: CONSTITUTIONAL/GENERAL: This is a chronically ill appearing male, very lethargic , nonverbal TUBES/LINES/DRAINS: PIV UE. SKIN: No rashes, or lesions. +Ecchymoses & small petechiae scattered over body. Fading small ecchymosis above left eyebrow. Worsening jaundice. Skin warm/dry. EYES: Pupils equal and round and reactive. Extraocular motions intact. + scleral icterus. No injection or drainage. Fundi not examined. ENT: Nose without bleeding or purulent drainage. Does not open mouth for oropharynx exam. CARDIOVASCULAR: Regular rate and rhythm , 3/6 systolic murmur . No JVD. Peripheral pulses symmetric. Slight edema upper extremity. Chronic vascular changes to skin bilateral lower legs RESPIRATORY/CHEST: Symmetric, unlabored respirations. on room air. Clear to auscultation, decreased air movement to bases, faint rhonchi right. Breath sounds equal bilaterally. GASTROINTESTINAL: Abdomen soft, no apparent tenderness, nondistended/slight splenomegaly .no ascites. No guarding. Bowel sounds present. MUSCULOSKELETAL: Extremities without clubbing, cyanosis. No joint tenderness or effusion noted. chronic vascular discoloration visible to bilateral lower legs , trace edema UE NEUROLOGICAL: Very lethargic minimally stirs to exam. Slight brief eye opening. Does not follow any commands. Does not verbalize. Minimal weak movement localizing to touch on extremities. PSYCHIATRIC: Too lethargic to assess . Diagnostic Tests Laboratory: Laboratory Results - last 72 hr 06/27/18 06/27/18 06/27/18 17:27 18:55 21:49 WBC RBC Hgb Hct MCV MCH MCHC RDW Plt Count MPV Prelim Diff (Auto) Neut % (Auto) Lymph % (Auto) [place] % (Auto) Eos % (Auto) Baso % (Auto) Neut # (Auto) Lymph # (Auto) [place] # (Auto) Eos # (Auto) Baso # (Auto) WBC Differential Seg Neuts % (Manual) Band Neuts % (Manual) Lymphocytes % (Manual) Monocytes % (Manual) Abs Neuts (Manual) Differential Comment Toxic Vacuolation Platelet Estimate Platelet Morphology PT INR Sodium Potassium Chloride Carbon Dioxide Anion Gap BUN Creatinine Estimated GFR POC Glucose 88 114 H Random Glucose Calcium Total Bilirubin AST ALT Alkaline Phosphatase Ammonia 41 H Total Protein Albumin Vitamin B12 Urine Color Urine Clarity Urine pH Ur Specific [place] Urine Protein Urine Glucose (UA) Urine Ketones Urine Occult Blood Urine Nitrate Urine Bilirubin Urine Ictotest Urine Urobilinogen Ur Leukocyte Esterase Urine RBC Urine WBC Ur Squamous Epith Cells Urine Bacteria Hyaline Casts Granular Casts Urine Mucus Urine Yeast Micro UA Comment Ur Microscopic Review Urine Culture Comments 06/28/18 06/28/18 06/28/18 00:00 03:21 04:05 WBC 4.2 RBC 2.13 L Hgb 9.2 L Hct 26.9 L MCV 126.3 H MCH 43.3 H MCHC 34.3 RDW 23.9 H Plt Count 35 L MPV 9.2 Prelim Diff (Auto) Slide review pending Neut % (Auto) 85.1 H Lymph % (Auto) 7.4 L [place] % (Auto) 7.2 Eos % (Auto) 0.2 Baso % (Auto) 0.1 Neut # (Auto) 3.6 Lymph # (Auto) 0.3 L [place] # (Auto) 0.3 Eos # (Auto) 0.0 Baso # (Auto) 0.0 WBC Differential Manual diff final Seg Neuts % (Manual) 83 H Band Neuts % (Manual) 12 H Lymphocytes % (Manual) 3 L Monocytes % (Manual) 2 Abs Neuts (Manual) 4.0 Differential Comment . Toxic Vacuolation Present H Platelet Estimate Low L Platelet Morphology Normal PT INR Sodium Potassium Chloride Carbon Dioxide Anion Gap BUN Creatinine Estimated GFR POC Glucose 146 H Random Glucose Calcium Total Bilirubin AST ALT Alkaline Phosphatase Ammonia Total Protein Albumin Vitamin B12 Urine Color [place] Urine Clarity Cloudy H Urine pH 6.0 Ur Specific [place] 1.018 Urine Protein 30 H Urine Glucose (UA) Negative Urine Ketones Negative Urine Occult Blood Large H Urine Nitrate Negative Urine Bilirubin Moderate H Urine Ictotest Positive H Urine Urobilinogen 4 or greater Ur Leukocyte Esterase Moderate H Urine RBC Urine WBC 155 H Ur Squamous Epith Cells 2 Urine Bacteria Few H Hyaline Casts 102 Granular Casts 61 Urine Mucus Moderate H Urine Yeast Many H Micro UA Comment Cath-culture ind Ur Microscopic Review Not Reportable Urine Culture Comments Cath-cult indicated 06/28/18 06/28/18 06/28/18 04:05 04:05 07:16 WBC RBC Hgb Hct MCV MCH MCHC RDW Plt Count MPV Prelim Diff (Auto) Neut % (Auto) Lymph % (Auto) [place] % (Auto) Eos % (Auto) Baso % (Auto) Neut # (Auto) Lymph # (Auto) [place] # (Auto) Eos # (Auto) Baso # (Auto) WBC Differential Seg Neuts % (Manual) Band Neuts % (Manual) Lymphocytes % (Manual) Monocytes % (Manual) Abs Neuts (Manual) Differential Comment Toxic Vacuolation Platelet Estimate Platelet Morphology PT INR Sodium 148 H Potassium 4.7 Chloride 115 H Carbon Dioxide 23.9 Anion Gap 9 BUN 53 H Creatinine 1.57 H Estimated GFR 46 L POC Glucose 103 Random Glucose 97 Calcium 9.0 Total Bilirubin AST ALT Alkaline Phosphatase Ammonia Total Protein Albumin Vitamin B12 1975 H Urine Color Urine Clarity Urine pH Ur Specific [place] Urine Protein Urine Glucose (UA) Urine Ketones Urine Occult Blood Urine Nitrate Urine Bilirubin Urine Ictotest Urine Urobilinogen Ur Leukocyte Esterase Urine RBC Urine WBC Ur Squamous Epith Cells Urine Bacteria Hyaline Casts Granular Casts Urine Mucus Urine Yeast Micro UA Comment Ur Microscopic Review Urine Culture Comments 06/28/18 06/28/18 06/28/18 12:11 14:21 18:22 WBC RBC Hgb Hct MCV MCH MCHC RDW Plt Count MPV Prelim Diff (Auto) Neut % (Auto) Lymph % (Auto) [place] % (Auto) Eos % (Auto) Baso % (Auto) Neut # (Auto) Lymph # (Auto) [place] # (Auto) Eos # (Auto) Baso # (Auto) WBC Differential Seg Neuts % (Manual) Band Neuts % (Manual) Lymphocytes % (Manual) Monocytes % (Manual) Abs Neuts (Manual) Differential Comment Toxic Vacuolation Platelet Estimate Platelet Morphology PT 36.9 H INR 3.7 Sodium Potassium Chloride Carbon Dioxide Anion Gap BUN Creatinine Estimated GFR POC Glucose 128 H 153 H Random Glucose Calcium Total Bilirubin AST ALT Alkaline Phosphatase Ammonia Total Protein Albumin Vitamin B12 Urine Color Urine Clarity Urine pH Ur Specific [place] Urine Protein Urine Glucose (UA) Urine Ketones Urine Occult Blood Urine Nitrate Urine Bilirubin Urine Ictotest Urine Urobilinogen Ur Leukocyte Esterase Urine RBC Urine WBC Ur Squamous Epith Cells Urine Bacteria Hyaline Casts Granular Casts Urine Mucus Urine Yeast Micro UA Comment Ur Microscopic Review Urine Culture Comments 06/28/18 06/29/18 06/29/18 22:03 03:10 08:06 WBC RBC Hgb Hct MCV MCH MCHC RDW Plt Count MPV Prelim Diff (Auto) Neut % (Auto) Lymph % (Auto) [place] % (Auto) Eos % (Auto) Baso % (Auto) Neut # (Auto) Lymph # (Auto) [place] # (Auto) Eos # (Auto) Baso # (Auto) WBC Differential Seg Neuts % (Manual) Band Neuts % (Manual) Lymphocytes % (Manual) Monocytes % (Manual) Abs Neuts (Manual) Differential Comment Toxic Vacuolation Platelet Estimate Platelet Morphology PT INR Sodium 147 H Potassium 5.5 H D Chloride 120 H Carbon Dioxide 22.4 Anion Gap 5 BUN 58 H Creatinine 1.54 H Estimated GFR 47 L POC Glucose 147 H 142 H Random Glucose 125 H Calcium 9.3 Total Bilirubin 15.3 H AST 81 H ALT 50 Alkaline Phosphatase 67 Ammonia Total Protein 5.5 L Albumin 1.5 L Vitamin B12 Urine Color Urine Clarity Urine pH Ur Specific [place] Urine Protein Urine Glucose (UA) Urine Ketones Urine Occult Blood Urine Nitrate Urine Bilirubin Urine Ictotest Urine Urobilinogen Ur Leukocyte Esterase Urine RBC Urine WBC Ur Squamous Epith Cells Urine Bacteria Hyaline Casts Granular Casts Urine Mucus Urine Yeast Micro UA Comment Ur Microscopic Review Urine Culture Comments 06/29/18 10:16 WBC 5.5 RBC 2.23 L Hgb 9.6 L Hct 28.7 L MCV 128.8 H MCH 43.0 H MCHC 33.4 RDW 24.1 H Plt Count 36 L MPV 9.6 Prelim Diff (Auto) Slide review pending Neut % (Auto) 87.4 H Lymph % (Auto) 5.1 L [place] % (Auto) 7.3 Eos % (Auto) 0.2 Baso % (Auto) 0.0 Neut # (Auto) 4.8 Lymph # (Auto) 0.3 L [place] # (Auto) 0.4 Eos # (Auto) 0.0 Baso # (Auto) 0.0 WBC Differential Seg Neuts % (Manual) Band Neuts % (Manual) Lymphocytes % (Manual) Monocytes % (Manual) Abs Neuts (Manual) Differential Comment . Toxic Vacuolation Platelet Estimate Platelet Morphology PT INR Sodium Potassium Chloride Carbon Dioxide Anion Gap BUN Creatinine Estimated GFR POC Glucose Random Glucose Calcium Total Bilirubin AST ALT Alkaline Phosphatase Ammonia Total Protein Albumin Vitamin B12 Urine Color Urine Clarity Urine pH Ur Specific [place] Urine Protein Urine Glucose (UA) Urine Ketones Urine Occult Blood Urine Nitrate Urine Bilirubin Urine Ictotest Urine Urobilinogen Ur Leukocyte Esterase Urine RBC Urine WBC Ur Squamous Epith Cells Urine Bacteria Hyaline Casts Granular Casts Urine Mucus Urine Yeast Micro UA Comment Ur Microscopic Review Urine Culture Comments Result Diagrams: 06/29/18 10:16 06/29/18 08:06 Microbiology: Microbiology 06/28/18 00:00 Urine Culture - Preliminary Catheterized Urine Yeast - ID to follow 06/26/18 21:50 Stool Occult Blood (SHARI) - Final Stool Hemoccult negative Imaging: Impressions Abdomen X-Ray 06/28/18 00:00 CONCLUSION: 1. Moderate gaseous distention of the stomach. 2. Otherwise, nonobstructive bowel gas pattern. 3. Mild to moderate stool throughout the colon consistent with some degree of constipation. 4. Double-J right ureteral stent with redemonstration of right-sided staghorn calculus. Head CT 06/28/18 00:00 CONCLUSION: 1. Stable mild diffuse cerebral atrophy and periventricular ischemic white matter demyelination. 2. No acute intracranial abnormality. Venous Doppler Study 06/29/18 00:00 CONCLUSION: 1. No sonographic evidence for left upper extremity DVT. Assessment and Plan - Disease Oriented Problem List (1) Hepatitis B infection (2) Staghorn renal calculus (3) Acute UTI (4) Liver cirrhosis (5) Hep C w/o coma, chronic Pertinent Non-Medical Issues: Psychosocial: Patient indicates originally from [place]. Did live in [place] for about a year but has since been in [place] for several years. 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 Has 7 siblings though does not remain in close communication with them. Spiritual: Islam, no particular affiliation. Requests glass engraver visit, glass engraver notified. Legal:Patient today mildly encephalopathic. Ammonia level elevated. Partially oriented. Appears capacitated enough to participate some in decision making but does not have full insight. He is able to designate healthcare surrogate names his brother Arley Valadez as someone he would trust to make decisions in an emergency. Would recommend shared decision making at this point given his fluctuating mental status. Ethical issues impacting care: No ethical issues identified Important Contacts: Brother Arley Valadez (Brett) in [place]- [facility] #[phone] XXX OLD# XXX [phone] Brother ARLEY in [facility] [phone] . Prognosis: Patient is a poor historian, full medical history not readily available. Appears he has had some component of chronic liver disease, now with superimposed acute liver dysfunction. Hepatitis B, hepatitis C positive. Initiated on treatment here. Encephalopathic. Bilirubin trending up. Possible current acute disease process may be stable with ongoing aggressive treatment w antiviral, though he remains high risk for ongoing if liver disease does not stabilize or respond to treatment. He was stable for a few weeks of time here however he has had clinical deterioration in the past week, more pronounced in the past several days. Bilirubin uptrending, liver functions no longer elevating. Some hypotension today. High risk for continued deterioration and . appropriate for hospice. Code Status: Full Code Plan: * Legal decision maker:Patient today mildly encephalopathic. Ammonia level elevated. Partially oriented. Appears capacitated enough to participate some in decision making but does not have full insight. He is able to designate healthcare surrogate names his brother Arley Valadez as someone he would trust to make decisions in an emergency. Would recommend shared decision making at this point given his fluctuating mental status.Brothers have previously indicated that they would be unable to help the patient physically or with housing for DC however they would remain available over the phone to assist him as needed. * Goals: Per initial interaction: patient goals stated to continue treatment he "wants to live ". He has limited insight and understanding at this time. Designated his brother Fortunato as healthcare surrogate. I have spoken at length with this brother today. He is in agreement to serve as HCS. Update and review of conditions provided today to brother. He wishes to talk to other family members, process information. No decisions made today. He plans to talk further with palliative tomorrow 05/12/18. He is unable to care for patient himself he lives out of state. He feels patient will likely need placement. Patient just moved here from [place] possibly in March at that time he had Medicaid coverage in [place]. * 06/29/18: Spoke with brothgeovanny Lazo regarding patient clinical deterioration, poor prognosis and treatment options going forward-->>escalation and probable ICU course versus de-escalation and transition to comfort. No decisions made at this time; he needs to talk to other brother Arley and the rest of family before any decisions are made. They will call back later if/when decisions are made. Gently advised that decisions need to be made TODAY to further guide tx course. * CODE STATUS: Full code * SYMPTOMS: --Pain-has had some ongoing pain to right flank/abdomen indicates this was new onset at time of presentation to [facility]. He has previously endorsed good relief with use of prn--indicates he had not previously been on any chronic opiates for chronic pain syndromes. Oxycodone 5 mg had been effective a few times per day. Patient now with increased lethargy over the past few days, worsening encephalopathy. Cautious use of opiates or benzos given deteriorating mental status. --Encephalopathy-patient with fluctuating mental status, hepatitis, bilirubin trending up, ammonia level also up and down during hospitalization. Bilirubin at some point stopped trending up; however again today 06/29 back up to 15.3. GI following, now signed off. On lactulose, rifaximin . Has been receiving hepatitis treatments. Previously oriented though forgetful. MELD 36. -- dyspnea/dysphagia- more lethargic, high risk for aspiration/respiratory decline 2/2 to neurological status. Now NPO. -- n/v-intermittent, has prn zofran available. Previously endorsed nausea. now lethargic, no c/o * Palliative care will continue to follow during hospital course as condition evolves, to assist patient/decision-maker with understanding of medical conditions, weighing benefits/burdens of treatment options, for clarification of goals of treatment. Additionally will assist with any symptoms of palliative concern
[2018-06-29 12:17] LABS: Platelet Morphology Normal (Normal)
[2018-06-29] MEDS: Ferrous Sulfate 325 MG Tablet PO SCH ×2 (12:30→16:39)
[2018-06-29] MEDS: Dextrose 5%/NaCl 0.45% Inj 1,000 ML IV.CONT SCH ×2 (12:30→23:12)
[2018-06-29] MEDS ORDERED: Albumin Human 25% Inj 100 ML IV.SIG ONE (14:29)
[2018-06-29] MEDS ORDERED: Phytonadione Inj 10 MG/ML Vial SQ ONE (17:32)
[2018-06-29] MEDS: Escitalopram 10 MG Tablet PO SCH (22:59)
[2018-06-30 07:41] LABS: Albumin 1.7 g/dL (3.4-5.0); Anion Gap 3 meq/L (5-15); Aspartate Aminotransferase 43 U/L (15-37); Blood Urea Nitrogen 51 mg/dL (7-18); Calcium 9.3 mg/dL (8.5-10.1); Carbon Dioxide 27.2 meq/L (21.0-32.0); Chloride 125 meq/L (98-107); Glomerular Filtration Rate 57 mL/min (>89); Glucose,Random 104 mg/dL (74-106); Potassium 3.7 meq/L (3.5-5.1); Sodium 155 meq/L (136-145)
[2018-06-30 07:44] LABS: Alanine Aminotransferase 47 U/L (12-78); Alkaline Phosphatase 58 U/L (45-117); Total Protein 4.8 g/dL (6.4-8.2)
[2018-06-30] MEDS: Folic Acid 1 MG Tablet PO SCH (08:12)
[2018-06-30] MEDS: Sodium Chloride 0.9% 2 ML Flush BID IV.FLUSH SCH ×2 (08:12→23:34)
[2018-06-30] MEDS: Dextrose 5%/NaCl 0.45% Inj 1,000 ML IV.CONT SCH (08:12)
[2018-06-30] MEDS: rifAXIMin 550 MG Tablet PO SCH ×2 (08:13→23:34)
[2018-06-30] MEDS: Senna/Docusate Sodium 8.6/50 MG Tablet PO SCH ×2 (08:13→23:34)
[2018-06-30] MEDS: Tenofovir 300 MG Tablet PO SCH (08:13)
[2018-06-30] MEDS: Dextrose 5% in Water Inj 1,000 ML IV.CONT SCH ×2 (09:25→19:45)
[2018-06-30 11:19] LABS: Baso % (Auto) 0.1 % (0.0-2.0); Eos % (Auto) 0.2 % (0.0-4.0); Hematocrit 24.6 % (39.0-51.0); Hemoglobin 8.3 gm/dL (13.0-17.0); Lymph # (Auto) 0.4 th/mm3 (1.0-4.8); Lymph % (Auto) 10.7 % (9.0-44.0); Mean Corpuscular HGB Conc 33.9 % (32.0-36.0); Mean Corpuscular Hemoglobin 42.7 pg (27.0-34.0); Mono # (Auto) 0.2 th/mm3 (0.0-0.9); Mono % (Auto) 6.8 % (0.0-8.0); Neut # (Auto) 2.8 th/mm3 (1.8-7.7); Neut % (Auto) 82.2 % (16.0-70.0); Platelet Count 26 th/mm3 (150-450); Red Blood Count 1.95 mil/mm3 (4.50-5.90); Red Cell Distribution Width 22.9 % (11.6-17.2); White Blood Count 3.5 th/mm3 (4.0-11.0)
[2018-06-30 11:34] LABS: INR 4.3 Ratio
[2018-06-30 12:19] LABS: Dimorphic RBC Present; Lymphocytes 5 % (9-44); Metamyelocytes 2 % (0-1); Monocytes 6 % (0-8); Platelet Morphology Normal (Normal); Tallied Nucleated RBC 2 (0-0); Toxic Granulation 2+
[2018-06-30] MEDS ORDERED: Phytonadione Inj 10 MG/ML Vial SQ ONE (12:55)
[2018-06-30] MEDS: Ferrous Sulfate 325 MG Tablet PO SCH ×2 (13:33→16:34)
--- NOTE | 2018-06-30 14:59 | P.PNPAL ---
Reason for Visit Reason for visit: a. To assist with evaluation and management of symptoms including: Encephalopathy, pain b. To assist medical decision maker(s) with: better understanding of current medical conditions; weighing benefits/burdens of medical treatment options; making medical treatment decisions. Subjective Subjective/Interval History: This 58-year-old patient who was transferred here to [facility] from [facility] in [place] on 04/29/18. There he had gone for evaluation of right-sided abdominal pain on 04/28. He also presented with constipation and dark urine. Abdominal CT indicative of portal hypertension changes, cirrhotic liver, and 3.5 cm staghorn calculus right kidney with possible mild duodenitis and cholelithiasis. + pancytopenia, + UTI - started on zosyn IV. He was transferred to [facility] due to staghorn calculus w concomitant infection, and requiring a urologist evaluation. also noted to have chronic hep C, cirrhosis, stable Neuropsychiatry prev consulted to assist with determining if patient has capacity to make medical decisions. He had previously been deemed capacitated to make medical decisions however also was recommended for support outside of the hospital upon discharge due to cognitive deficits. . . Seen today to follow-up on comfort, goals with patient and/or decision makers. Notified pt 2 nieces are present whom brother Arley notified yesterday RE pt condition. H&H downtrending slowly 8.3/24.6, plt 26. Bili 15.8. INR 4.3, PT 43. Cont to be very lethargic/encephalopathic. NPO due to mentation. Seen in room 2 nieces at bedside. Dual visit yuliana Woody APRN. Patient minimally responsive opens eyes periodically but does not track examiner. Does not attempt to verbalize. Does not follow any commands. Met with 2 nieces at bedside, they have been in touch with Arley and Arley directed them to visits and is involving them in care. They plan to face time communicate with him so he is able to see the patient. Review with them briefly patient hospitalization, they appear did already be aware of his chronic underlying conditions of hepatitis. Review with them general nature of liver disease as progressive. They ask if transplantation is an option right now and review that it is not. For them limited treatment options going forward including escalation and further invasive measures which will not cure her underlying disease process versus de-escalation and transition to comfort focus. Explore brothers are designated decision makers. Annamaria indicates that in the past patient had indicated that he would not want to live forever in the hospital. She feels like even though he wanted to live and get better, that he would not to live under his current circumstances. Discussed at length with medical attending SOHAN. Call later from Arley Updated on todays labs, clinically worsening, tx in place, possible tx if goals aggressive including feeding tube, possible transfusions, poss transfer to ICU for more invasive cardiac or respiratory support. Again reviewed CODE STATUS. He reiterates as he did yesterday that the Arley during this hospitalization had expressed to do anything possible to help keep him alive. His brother feels he must elect to proceed with a feeding tube and ongoing aggressive tx, keep the patient full code. Review of benefits/burdens/risks/limitations of further aggressive interventions. Review alternative of de-escalation and comfort tx only. Additional family will be arriving in the coming days to see pt. Review with Arley that even with ongoing invasive and aggressive interventions patient is still high risk for further decline and despite interventions. Advance Directives Advance Directives Date on File: 05/07/18 Health Care Surrogate Name and Number: Names brother Arley Valadez (brett) Objective Vital Signs: Vital Signs 06/29/18 16:00 06/29/18 20:00 06/30/18 00:00 Temperature 98.3 F 97.7 F 97.7 F Pulse Rate 101 H 107 H 87 Respiratory Rate 18 18 18 Blood Pressure 140/70 102/65 106/60 Pulse Oximetry 96 96 97 06/30/18 08:00 06/30/18 12:00 Temperature 98.1 F 98.0 F Pulse Rate 106 H 98 H Respiratory Rate 14 14 Blood Pressure 104/64 104/64 Pulse Oximetry 95 95 Intake & Output 06/29/18 06/30/18 06/30/18 18:59 06:59 18:59 Intake Total 1200 / 1200 1000 / 1000 1100 / 1100 Output Total 850 / 850 Balance 1200 / 1200 150 / 150 1100 / 1100 Intake: IV 1200 / 1200 1000 / 1000 1100 / 1100 D5W/1/2 NS Inj 1,000 ML @ 100 1000 / 1000 1000 / 1000 1000 / 1000 mls/hr IV.CONT .Q10H [facility] Rx#: [id number] Flexbumin 25% Inj 100 ML @ 60 100 / 100 mls/hr IV.SIG ONCE ONE Rx#: [id number] Rocephin Inj 1,000 MG In NS Inj 100 / 100 100 / 100 100 ML @ 200 mls/hr IV.SIG Q24H [facility] Rx#:[id number] Output: Urine 850 / 850 Other: # Voids 3 Date of Last Bowel Movement 06/29/18 06/29/18 # Incontinent Bowel Movements 1 Physical Exam: CONSTITUTIONAL/GENERAL: This is a chronically ill appearing male, very lethargic , nonverbal TUBES/LINES/DRAINS: PIV UE. SKIN: No rashes, or lesions. +Ecchymoses & small petechiae scattered over body. Fading small ecchymosis above left eyebrow. jaundice. Skin warm/dry. EYES: Pupils equal and round and reactive. Extraocular motions intact. + scleral icterus. No injection or drainage. Fundi not examined. ENT: Nose without bleeding or purulent drainage. Does not open mouth for oropharynx exam. CARDIOVASCULAR: Regular rate and rhythm , 3/6 systolic murmur . No JVD. Peripheral pulses symmetric. Chronic vascular changes to skin bilateral lower legs RESPIRATORY/CHEST: Symmetric, unlabored respirations. on room air. Clear to auscultation, decreased air movement to bases, faint rhonchi right. Breath sounds equal bilaterally. GASTROINTESTINAL: Abdomen soft, no apparent tenderness, nondistended/slight splenomegaly .no ascites. No guarding. Bowel sounds present. MUSCULOSKELETAL: Extremities without clubbing, cyanosis. No joint tenderness or effusion noted. chronic vascular discoloration visible to bilateral lower legs NEUROLOGICAL: Very lethargic minimally stirs to exam. Slight brief eye opening. Does not follow any commands. Does not verbalize. Minimal weak movement localizing to touch on extremities. PSYCHIATRIC: Too lethargic to assess . Diagnostic Tests Laboratory: Laboratory Results - last 72 hr 06/27/18 06/27/18 06/27/18 17:27 18:55 21:49 WBC RBC Hgb Hct MCV MCH MCHC RDW Plt Count MPV Prelim Diff (Auto) Neut % (Auto) Lymph % (Auto) [place] % (Auto) Eos % (Auto) Baso % (Auto) Neut # (Auto) Lymph # (Auto) [place] # (Auto) Eos # (Auto) Baso # (Auto) WBC Differential Diff Scan Seg Neuts % (Manual) Band Neuts % (Manual) Lymphocytes % (Manual) Monocytes % (Manual) Metamyelocytes % (Man) Abs Neuts (Manual) Nucleated RBCs/100 WBC Differential Comment Toxic Granulation Toxic Vacuolation Platelet Estimate Platelet Morphology Dimorphic RBCs PT INR Sodium Potassium Chloride Carbon Dioxide Anion Gap BUN Creatinine Estimated GFR POC Glucose 88 114 H Random Glucose Calcium Total Bilirubin AST ALT Alkaline Phosphatase Ammonia 41 H Total Protein Albumin Vitamin B12 Urine Color Urine Clarity Urine pH Ur Specific [place] Urine Protein Urine Glucose (UA) Urine Ketones Urine Occult Blood Urine Nitrate Urine Bilirubin Urine Ictotest Urine Urobilinogen Ur Leukocyte Esterase Urine RBC Urine WBC Ur Squamous Epith Cells Urine Bacteria Hyaline Casts Granular Casts Urine Mucus Urine Yeast Micro UA Comment Ur Microscopic Review Urine Culture Comments 06/28/18 06/28/18 06/28/18 00:00 03:21 04:05 WBC 4.2 RBC 2.13 L Hgb 9.2 L Hct 26.9 L MCV 126.3 H MCH 43.3 H MCHC 34.3 RDW 23.9 H Plt Count 35 L MPV 9.2 Prelim Diff (Auto) Slide review pending Neut % (Auto) 85.1 H Lymph % (Auto) 7.4 L [place] % (Auto) 7.2 Eos % (Auto) 0.2 Baso % (Auto) 0.1 Neut # (Auto) 3.6 Lymph # (Auto) 0.3 L [place] # (Auto) 0.3 Eos # (Auto) 0.0 Baso # (Auto) 0.0 WBC Differential Manual diff final Diff Scan Seg Neuts % (Manual) 83 H Band Neuts % (Manual) 12 H Lymphocytes % (Manual) 3 L Monocytes % (Manual) 2 Metamyelocytes % (Man) Abs Neuts (Manual) 4.0 Nucleated RBCs/100 WBC Differential Comment . Toxic Granulation Toxic Vacuolation Present H Platelet Estimate Low L Platelet Morphology Normal Dimorphic RBCs PT INR Sodium Potassium Chloride Carbon Dioxide Anion Gap BUN Creatinine Estimated GFR POC Glucose 146 H Random Glucose Calcium Total Bilirubin AST ALT Alkaline Phosphatase Ammonia Total Protein Albumin Vitamin B12 Urine Color [place] Urine Clarity Cloudy H Urine pH 6.0 Ur Specific [place] 1.018 Urine Protein 30 H Urine Glucose (UA) Negative Urine Ketones Negative Urine Occult Blood Large H Urine Nitrate Negative Urine Bilirubin Moderate H Urine Ictotest Positive H Urine Urobilinogen 4 or greater Ur Leukocyte Esterase Moderate H Urine RBC Urine WBC 155 H Ur Squamous Epith Cells 2 Urine Bacteria Few H Hyaline Casts 102 Granular Casts 61 Urine Mucus Moderate H Urine Yeast Many H Micro UA Comment Cath-culture ind Ur Microscopic Review Not Reportable Urine Culture Comments Cath-cult indicated 06/28/18 06/28/18 06/28/18 04:05 04:05 07:16 WBC RBC Hgb Hct MCV MCH MCHC RDW Plt Count MPV Prelim Diff (Auto) Neut % (Auto) Lymph % (Auto) [place] % (Auto) Eos % (Auto) Baso % (Auto) Neut # (Auto) Lymph # (Auto) [place] # (Auto) Eos # (Auto) Baso # (Auto) WBC Differential Diff Scan Seg Neuts % (Manual) Band Neuts % (Manual) Lymphocytes % (Manual) Monocytes % (Manual) Metamyelocytes % (Man) Abs Neuts (Manual) Nucleated RBCs/100 WBC Differential Comment Toxic Granulation Toxic Vacuolation Platelet Estimate Platelet Morphology Dimorphic RBCs PT INR Sodium 148 H Potassium 4.7 Chloride 115 H Carbon Dioxide 23.9 Anion Gap 9 BUN 53 H Creatinine 1.57 H Estimated GFR 46 L POC Glucose 103 Random Glucose 97 Calcium 9.0 Total Bilirubin AST ALT Alkaline Phosphatase Ammonia Total Protein Albumin Vitamin B12 1975 H Urine Color Urine Clarity Urine pH Ur Specific [place] Urine Protein Urine Glucose (UA) Urine Ketones Urine Occult Blood Urine Nitrate Urine Bilirubin Urine Ictotest Urine Urobilinogen Ur Leukocyte Esterase Urine RBC Urine WBC Ur Squamous Epith Cells Urine Bacteria Hyaline Casts Granular Casts Urine Mucus Urine Yeast Micro UA Comment Ur Microscopic Review Urine Culture Comments 06/28/18 06/28/18 06/28/18 12:11 14:21 18:22 WBC RBC Hgb Hct MCV MCH MCHC RDW Plt Count MPV Prelim Diff (Auto) Neut % (Auto) Lymph % (Auto) [place] % (Auto) Eos % (Auto) Baso % (Auto) Neut # (Auto) Lymph # (Auto) [place] # (Auto) Eos # (Auto) Baso # (Auto) WBC Differential Diff Scan Seg Neuts % (Manual) Band Neuts % (Manual) Lymphocytes % (Manual) Monocytes % (Manual) Metamyelocytes % (Man) Abs Neuts (Manual) Nucleated RBCs/100 WBC Differential Comment Toxic Granulation Toxic Vacuolation Platelet Estimate Platelet Morphology Dimorphic RBCs PT 36.9 H INR 3.7 Sodium Potassium Chloride Carbon Dioxide Anion Gap BUN Creatinine Estimated GFR POC Glucose 128 H 153 H Random Glucose Calcium Total Bilirubin AST ALT Alkaline Phosphatase Ammonia Total Protein Albumin Vitamin B12 Urine Color Urine Clarity Urine pH Ur Specific [place] Urine Protein Urine Glucose (UA) Urine Ketones Urine Occult Blood Urine Nitrate Urine Bilirubin Urine Ictotest Urine Urobilinogen Ur Leukocyte Esterase Urine RBC Urine WBC Ur Squamous Epith Cells Urine Bacteria Hyaline Casts Granular Casts Urine Mucus Urine Yeast Micro UA Comment Ur Microscopic Review Urine Culture Comments 06/28/18 06/29/18 06/29/18 22:03 03:10 08:06 WBC RBC Hgb Hct MCV MCH MCHC RDW Plt Count MPV Prelim Diff (Auto) Neut % (Auto) Lymph % (Auto) [place] % (Auto) Eos % (Auto) Baso % (Auto) Neut # (Auto) Lymph # (Auto) [place] # (Auto) Eos # (Auto) Baso # (Auto) WBC Differential Diff Scan Seg Neuts % (Manual) Band Neuts % (Manual) Lymphocytes % (Manual) Monocytes % (Manual) Metamyelocytes % (Man) Abs Neuts (Manual) Nucleated RBCs/100 WBC Differential Comment Toxic Granulation Toxic Vacuolation Platelet Estimate Platelet Morphology Dimorphic RBCs PT INR Sodium 147 H Potassium 5.5 H D Chloride 120 H Carbon Dioxide 22.4 Anion Gap 5 BUN 58 H Creatinine 1.54 H Estimated GFR 47 L POC Glucose 147 H 142 H Random Glucose 125 H Calcium 9.3 Total Bilirubin 15.3 H AST 81 H ALT 50 Alkaline Phosphatase 67 Ammonia Total Protein 5.5 L Albumin 1.5 L Vitamin B12 Urine Color Urine Clarity Urine pH Ur Specific [place] Urine Protein Urine Glucose (UA) Urine Ketones Urine Occult Blood Urine Nitrate Urine Bilirubin Urine Ictotest Urine Urobilinogen Ur Leukocyte Esterase Urine RBC Urine WBC Ur Squamous Epith Cells Urine Bacteria Hyaline Casts Granular Casts Urine Mucus Urine Yeast Micro UA Comment Ur Microscopic Review Urine Culture Comments 06/29/18 06/29/18 06/29/18 10:16 14:38 14:38 WBC 5.5 RBC 2.23 L Hgb 9.6 L Hct 28.7 L MCV 128.8 H MCH 43.0 H MCHC 33.4 RDW 24.1 H Plt Count 36 L MPV 9.6 Prelim Diff (Auto) Slide review pending Neut % (Auto) 87.4 H Lymph % (Auto) 5.1 L [place] % (Auto) 7.3 Eos % (Auto) 0.2 Baso % (Auto) 0.0 Neut # (Auto) 4.8 Lymph # (Auto) 0.3 L [place] # (Auto) 0.4 Eos # (Auto) 0.0 Baso # (Auto) 0.0 WBC Differential . Diff Scan Auto diff confirmed Seg Neuts % (Manual) Band Neuts % (Manual) Lymphocytes % (Manual) Monocytes % (Manual) Metamyelocytes % (Man) Abs Neuts (Manual) Nucleated RBCs/100 WBC Differential Comment . Toxic Granulation Toxic Vacuolation Platelet Estimate Low L Platelet Morphology Normal Dimorphic RBCs PT INR Sodium Potassium 4.5 D Chloride Carbon Dioxide Anion Gap BUN Creatinine Estimated GFR POC Glucose Random Glucose 126 H Calcium Total Bilirubin AST ALT Alkaline Phosphatase Ammonia Total Protein Albumin Vitamin B12 Urine Color Urine Clarity Urine pH Ur Specific [place] Urine Protein Urine Glucose (UA) Urine Ketones Urine Occult Blood Urine Nitrate Urine Bilirubin Urine Ictotest Urine Urobilinogen Ur Leukocyte Esterase Urine RBC Urine WBC Ur Squamous Epith Cells Urine Bacteria Hyaline Casts Granular Casts Urine Mucus Urine Yeast Micro UA Comment Ur Microscopic Review Urine Culture Comments 06/29/18 06/30/18 06/30/18 23:01 05:47 06:31 WBC RBC Hgb Hct MCV MCH MCHC RDW Plt Count MPV Prelim Diff (Auto) Neut % (Auto) Lymph % (Auto) [place] % (Auto) Eos % (Auto) Baso % (Auto) Neut # (Auto) Lymph # (Auto) [place] # (Auto) Eos # (Auto) Baso # (Auto) WBC Differential Diff Scan Seg Neuts % (Manual) Band Neuts % (Manual) Lymphocytes % (Manual) Monocytes % (Manual) Metamyelocytes % (Man) Abs Neuts (Manual) Nucleated RBCs/100 WBC Differential Comment Toxic Granulation Toxic Vacuolation Platelet Estimate Platelet Morphology Dimorphic RBCs PT INR Sodium 155 H Potassium 3.7 D Chloride 125 H Carbon Dioxide 27.2 Anion Gap 3 L BUN 51 H Creatinine 1.30 Estimated GFR 57 L POC Glucose 139 H 108 Random Glucose 104 Calcium 9.3 Total Bilirubin 15.8 H AST 43 H ALT 47 Alkaline Phosphatase 58 Ammonia Total Protein 4.8 L D Albumin 1.7 L Vitamin B12 Urine Color Urine Clarity Urine pH Ur Specific [place] Urine Protein Urine Glucose (UA) Urine Ketones Urine Occult Blood Urine Nitrate Urine Bilirubin Urine Ictotest Urine Urobilinogen Ur Leukocyte Esterase Urine RBC Urine WBC Ur Squamous Epith Cells Urine Bacteria Hyaline Casts Granular Casts Urine Mucus Urine Yeast Micro UA Comment Ur Microscopic Review Urine Culture Comments 06/30/18 06/30/18 06/30/18 08:08 10:28 10:38 WBC 3.5 L RBC 1.95 L Hgb 8.3 L Hct 24.6 L MCV 126.0 H MCH 42.7 H MCHC 33.9 RDW 22.9 H Plt Count 26 L MPV 10.0 Prelim Diff (Auto) Slide review pending Neut % (Auto) 82.2 H Lymph % (Auto) 10.7 [place] % (Auto) 6.8 Eos % (Auto) 0.2 Baso % (Auto) 0.1 Neut # (Auto) 2.8 Lymph # (Auto) 0.4 L [place] # (Auto) 0.2 Eos # (Auto) 0.0 Baso # (Auto) 0.0 WBC Differential Manual diff final Diff Scan Seg Neuts % (Manual) 74 H Band Neuts % (Manual) 13 H Lymphocytes % (Manual) 5 L Monocytes % (Manual) 6 Metamyelocytes % (Man) 2 H Abs Neuts (Manual) 3.1 Nucleated RBCs/100 WBC 2 H Differential Comment . Toxic Granulation 2+ H Toxic Vacuolation Platelet Estimate Low L Platelet Morphology Normal Dimorphic RBCs Present H PT 43.0 H INR 4.3 Sodium Potassium Chloride Carbon Dioxide Anion Gap BUN Creatinine Estimated GFR POC Glucose 125 H Random Glucose Calcium Total Bilirubin AST ALT Alkaline Phosphatase Ammonia Total Protein Albumin Vitamin B12 Urine Color Urine Clarity Urine pH Ur Specific [place] Urine Protein Urine Glucose (UA) Urine Ketones Urine Occult Blood Urine Nitrate Urine Bilirubin Urine Ictotest Urine Urobilinogen Ur Leukocyte Esterase Urine RBC Urine WBC Ur Squamous Epith Cells Urine Bacteria Hyaline Casts Granular Casts Urine Mucus Urine Yeast Micro UA Comment Ur Microscopic Review Urine Culture Comments Result Diagrams: 06/30/18 10:28 06/30/18 06:31 Microbiology: Microbiology 06/28/18 00:00 Urine Culture - Preliminary Catheterized Urine Yeast - ID to follow Assessment and Plan - Disease Oriented Problem List (1) Hepatitis B infection (2) Staghorn renal calculus (3) Acute UTI (4) Liver cirrhosis (5) Hep C w/o coma, chronic Pertinent Non-Medical Issues: Psychosocial: Patient indicates originally from [place]. Did live in [place] for about a year but has since been in [place] for several years. 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 Has 7 siblings though does not remain in close communication with them. Spiritual: Jew, no particular affiliation. Requests brass roller visit, brass roller notified. Legal:Patient today mildly encephalopathic. Ammonia level elevated. Partially oriented. Appears capacitated enough to participate some in decision making but does not have full insight. He is able to designate healthcare surrogate names his brother Arley Valadez as someone he would trust to make decisions in an emergency. Would recommend shared decision making at this point given his fluctuating mental status. Ethical issues impacting care: No ethical issues identified Important Contacts: Brother rAley Valadez (Brett) in [facility] #[phone] XXX OLD# XXX [phone] Brother ARLEY in [facility] [phone] . Prognosis: Patient is a poor historian, full medical history not readily available. Appears he has had some component of chronic liver disease, now with superimposed acute liver dysfunction. Hepatitis B, hepatitis C positive. Initiated on treatment here. Encephalopathic. Bilirubin trending up. Possible current acute disease process may be stable with ongoing aggressive treatment w antiviral, though he remains high risk for ongoing if liver disease does not stabilize or respond to treatment. He was stable for a few weeks of time here however he has had clinical deterioration in the past week, more pronounced in the past several days. Bilirubin uptrending, liver functions no longer elevating. Some hypotension today. High risk for continued deterioration and . appropriate for hospice. Code Status: Full Code Plan: * Legal decision maker:Patient today mildly encephalopathic. Ammonia level elevated. Partially oriented. Appears capacitated enough to participate some in decision making but does not have full insight. He is able to designate healthcare surrogate names his brother Arley Valadez as someone he would trust to make decisions in an emergency. Would recommend shared decision making at this point given his fluctuating mental status.Brothers have previously indicated that they would be unable to help the patient physically or with housing for DC however they would remain available over the phone to assist him as needed. * Goals: Per initial interaction: patient goals stated to continue treatment he "wants to live ". He has limited insight and understanding at this time. Designated his brother Fortunato as healthcare surrogate. I have spoken at length with this brother today. He is in agreement to serve as HCS. Update and review of conditions provided today to brother. He wishes to talk to other family members, process information. No decisions made today. He plans to talk further with palliative tomorrow 05/12/18. He is unable to care for patient himself he lives out of state. He feels patient will likely need placement. Patient just moved here from [place] possibly in March at that time he had Medicaid coverage in [place]. * 06/30 Brother Arley elects to proceed with a feeding tube and ongoing aggressive tx, keep patient full code * CODE STATUS: Full code * SYMPTOMS: --Pain-has had some ongoing pain to right flank/abdomen indicates this was new onset at time of presentation to [facility]. He has previously endorsed good relief with use of prn--indicates he had not previously been on any chronic opiates for chronic pain syndromes. Oxycodone 5 mg had been effective a few times per day. Patient now with increased lethargy over the past few days, worsening encephalopathy. Cautious use of opiates or benzos given deteriorating mental status. --Encephalopathy-patient with fluctuating mental status, hepatitis, bilirubin trending up, ammonia level also up and down during hospitalization. Bilirubin at some point stopped trending up; however uptrending past few days, up to 15.8. GI following, now signed off. Was on PO On lactulose, rifaximin . Has been receiving hepatitis treatments. Previously oriented though forgetful. MELD 36. -- dyspnea/dysphagia- more lethargic, high risk for aspiration/respiratory decline 2/2 to neurological status. Now NPO. -- n/v-intermittent, has prn zofran available. Previously endorsed nausea. now lethargic, no c/o * Palliative care will continue to follow during hospital course as condition evolves, to assist patient/decision-maker with understanding of medical conditions, weighing benefits/burdens of treatment options, for clarification of goals of treatment. Additionally will assist with any symptoms of palliative concern Attestation Attestation: To help prompt me to consider important information that might be impacting today's encounter and assessment, information from prior notes written by myself or my colleagues may have been "brought forward" into today's note. My signature on this note, however, is an attestation that I personally performed the exam, history, and/or decision-making noted today, and, unless otherwise indicated, the interactions with patient, family, and staff as well as the review of records all occurred today. I also attest that the listed assessment and stated plan reflect my best clinical judgment today based on the combination of historical information, prior notes, and today's exam/ interactions. When time spent is documented, it refers only to time spent today by the signer, or if indicated, combined time spent today by collaborating physician/nurse practitioner.
--- NOTE | 2018-06-30 17:35 | P.PNGI ---
Subjective Interval history: eyes close, nonverbal, niece in rm Physical Exam Vital signs: Vital Signs 06/29/18 20:00 06/30/18 00:00 06/30/18 08:00 Temperature 97.7 F 97.7 F 98.1 F Pulse Rate 107 H 87 106 H Respiratory Rate 18 18 14 Blood Pressure 102/65 106/60 104/64 Pulse Oximetry 96 97 95 06/30/18 12:00 06/30/18 16:00 Temperature 98.0 F 98.4 F Pulse Rate 98 H 98 H Respiratory Rate 14 16 Blood Pressure 104/64 102/62 Pulse Oximetry 95 95 Intake & Output 06/29/18 06/30/18 06/30/18 18:59 06:59 18:59 Intake Total 1200 / 1200 1000 / 1000 1100 / 1100 Output Total 850 / 850 Balance 1200 / 1200 150 / 150 1100 / 1100 Intake: IV 1200 / 1200 1000 / 1000 1100 / 1100 D5W/1/2 NS Inj 1,000 ML @ 100 1000 / 1000 1000 / 1000 1000 / 1000 mls/hr IV.CONT .Q10H [facility] Rx#: [id number] Flexbumin 25% Inj 100 ML @ 60 100 / 100 mls/hr IV.SIG ONCE ONE Rx#: [id number] Rocephin Inj 1,000 MG In NS Inj 100 / 100 100 / 100 100 ML @ 200 mls/hr IV.SIG Q24H [facility] Rx#:[id number] Output: Urine 850 / 850 Other: # Voids 3 Date of Last Bowel Movement 06/29/18 06/29/18 # Incontinent Bowel Movements 1 - Constitutional cachectic, disheveled - Routine Respiratory Exam Present: accessory muscle use (low volumes) - Routine Abdominal Exam Present: distended (mild, taut, ) - Routine Skin Exam Present: pallor, mottling (LE) - Routine Neurological Exam Present: altered mental status - Urinary Catheter Management Condom Cath placed during this visit: no Results - Labs CBC & Chem 7: 06/30/18 10:28 06/30/18 06:31 Laboratory Results - last 24 hr 06/29/18 06/30/18 06/30/18 23:01 05:47 06:31 WBC RBC Hgb Hct MCV MCH MCHC RDW Plt Count MPV Prelim Diff (Auto) Neut % (Auto) Lymph % (Auto) [place] % (Auto) Eos % (Auto) Baso % (Auto) Neut # (Auto) Lymph # (Auto) [place] # (Auto) Eos # (Auto) Baso # (Auto) WBC Differential Seg Neuts % (Manual) Band Neuts % (Manual) Lymphocytes % (Manual) Monocytes % (Manual) Metamyelocytes % (Man) Abs Neuts (Manual) Nucleated RBCs/100 WBC Differential Comment Toxic Granulation Platelet Estimate Platelet Morphology Dimorphic RBCs PT INR Sodium 155 H Potassium 3.7 D Chloride 125 H Carbon Dioxide 27.2 Anion Gap 3 L BUN 51 H Creatinine 1.30 Estimated GFR 57 L POC Glucose 139 H 108 Random Glucose 104 Calcium 9.3 Total Bilirubin 15.8 H AST 43 H ALT 47 Alkaline Phosphatase 58 Total Protein 4.8 L D Albumin 1.7 L 06/30/18 06/30/18 06/30/18 08:08 10:28 10:38 WBC 3.5 L RBC 1.95 L Hgb 8.3 L Hct 24.6 L MCV 126.0 H MCH 42.7 H MCHC 33.9 RDW 22.9 H Plt Count 26 L MPV 10.0 Prelim Diff (Auto) Slide review pending Neut % (Auto) 82.2 H Lymph % (Auto) 10.7 [place] % (Auto) 6.8 Eos % (Auto) 0.2 Baso % (Auto) 0.1 Neut # (Auto) 2.8 Lymph # (Auto) 0.4 L [place] # (Auto) 0.2 Eos # (Auto) 0.0 Baso # (Auto) 0.0 WBC Differential Manual diff final Seg Neuts % (Manual) 74 H Band Neuts % (Manual) 13 H Lymphocytes % (Manual) 5 L Monocytes % (Manual) 6 Metamyelocytes % (Man) 2 H Abs Neuts (Manual) 3.1 Nucleated RBCs/100 WBC 2 H Differential Comment . Toxic Granulation 2+ H Platelet Estimate Low L Platelet Morphology Normal Dimorphic RBCs Present H PT 43.0 H INR 4.3 Sodium Potassium Chloride Carbon Dioxide Anion Gap BUN Creatinine Estimated GFR POC Glucose 125 H Random Glucose Calcium Total Bilirubin AST ALT Alkaline Phosphatase Total Protein Albumin Microbiology 06/28/18 00:00 Catheterized Urine Urine Culture - Final Shante glabrata Assessment and Plan (1) Liver cirrhosis Status: Acute Code(s): K74.60 - Unspecified cirrhosis of liver (2) Hep C w/o coma, chronic Status: Chronic Code(s): B18.2 - Chronic viral hepatitis C - Plan Initial consult 05/07/18-Liver cirrhosis-most recent labs 05/06/2018 revealed total bilirubin of 7.6 AST of 300 ALT 157 alkaline phosphatase 123 ammonia level 136 albumin 1.6. Discussed liver function with the patient who is aware of worsening values. We will continue to monitor. Chronic hepatitis C/acute hepatitis B-patient with history of chronic hepatitis C currently restarted on antiviral for same (Tenofovir). Patient denies any known reason for pablo acute hepatitis B. Discussed precautions with patient as well as risk factors and he verbalizes understanding. On 05/08/2018 patient appears to have slow gradual decline as far as his mental status and some mild to moderate anxiety today. Some nausea and vomiting at lunchtime acute onset. Discussed again with patient his liver disease and the need for medical management even when he is out of the hospital. Current ammonia level 95 today albumin 1.5, bilirubin 7.8, AST 260 ALT 145, alkaline phosphatase 119 PT/INR 1.8. Noted mild trend of bilirubin increasing but liver enzymes mild decrease. Discuss with patient his support system when getting out of the hospital and states that he is supposed to talk to case management sometime today. States he does have a brother who does not seem to understand how serious his condition is which worries him as far. Palliative care team on board which might could assist with contact to brother if patient agrees. According to the record patient will be going home with a female friend who will assist him. States last bowel movement this past p.m. so questionable effectiveness of lactulose. Overall poor prognosis and general decline noted. Due to patient's portal hypertensive gastropathy, added further medication management to his regimen Encephalopathy appears to be worsened today. Patient is now on VIREAD 06/30/18, Reconsulted for possible PEG. Labs reviewed. Low platelet count, 26. Spoke with niece in rm, explained patient is high risk for hemorrhage and unable to receive PEG placement. Supportive care given. Discussed with Hospitalist and Dr. Bonner. No plans for any procedures at this time. Poor prognosis Patient was seen per myself and Dr. Bonner, note written on his behalf. (1) Liver cirrhosis Qualifiers: Hepatic cirrhosis type: other cirrhosis Qualified Code(s): K74.69 - Other cirrhosis of liver
--- NOTE | 2018-06-30 18:07 | P.PN ---
Subjective Interval history: Patient seen and examined. No significant change. Patient will open his eyes to voice. Nonverbal. Appears restless in the bed. Physical Exam Vital signs: Vital Signs 06/29/18 20:00 06/30/18 00:00 06/30/18 08:00 Temperature 97.7 F 97.7 F 98.1 F Pulse Rate 107 H 87 106 H Respiratory Rate 18 18 14 Blood Pressure 102/65 106/60 104/64 Pulse Oximetry 96 97 95 06/30/18 12:00 06/30/18 16:00 Temperature 98.0 F 98.4 F Pulse Rate 98 H 98 H Respiratory Rate 14 16 Blood Pressure 104/64 102/62 Pulse Oximetry 95 95 Intake & Output 06/29/18 06/30/18 06/30/18 18:59 06:59 18:59 Intake Total 1200 / 1200 1000 / 1000 1100 / 1100 Output Total 850 / 850 Balance 1200 / 1200 150 / 150 1100 / 1100 Intake: IV 1200 / 1200 1000 / 1000 1100 / 1100 D5W/1/2 NS Inj 1,000 ML @ 100 1000 / 1000 1000 / 1000 1000 / 1000 mls/hr IV.CONT .Q10H [facility] Rx#: [id number] Flexbumin 25% Inj 100 ML @ 60 100 / 100 mls/hr IV.SIG ONCE ONE Rx#: [id number] Rocephin Inj 1,000 MG In NS Inj 100 / 100 100 / 100 100 ML @ 200 mls/hr IV.SIG Q24H [facility] Rx#:[id number] Output: Urine 850 / 850 Other: # Voids 3 Date of Last Bowel Movement 06/29/18 06/29/18 # Incontinent Bowel Movements 1 Narrative: GENERAL: Thin chronically ill appearing male patient. Very lethargic. Opens eyes to voice briefly. Does not follow commands. Nonverbal. Tremulous. Restless in bed. SKIN: Warm and dry. +Jaundiced. HEAD: Normocephalic. +small area of ecchymosis left side above left eyebrow. EYES: Pupils equal and round. +bilateral scleral icterus. No injection or drainage. ENT: No nasal bleeding or discharge. Dry mucus membranes. NECK: Trachea midline. CARDIOVASCULAR: Regular rate and rhythm. +3/6 systolic murmur auscultated. RESPIRATORY: No accessory muscle use. Poor effort. Fair air entry. GASTROINTESTINAL: Abdomen soft, non-tender, nondistended. MUSCULOSKELETAL: Extremities without clubbing, cyanosis, or edema. NEUROLOGICAL: Somnolent. Opens eyes to voice. Nonverbal. Tremulous. Does not follow commands. No obvious cranial nerve deficits. Moves all extremities weakly but spontaneously. PSYCHIATRIC: unable to assess due to patients mental condition - Urinary Catheter Management Condom Cath placed during this visit: no Results - Labs CBC & Chem 7: 06/30/18 10:28 06/30/18 06:31 Laboratory Results - last 24 hr 06/29/18 06/30/18 06/30/18 23:01 05:47 06:31 WBC RBC Hgb Hct MCV MCH MCHC RDW Plt Count MPV Prelim Diff (Auto) Neut % (Auto) Lymph % (Auto) [place] % (Auto) Eos % (Auto) Baso % (Auto) Neut # (Auto) Lymph # (Auto) [place] # (Auto) Eos # (Auto) Baso # (Auto) WBC Differential Seg Neuts % (Manual) Band Neuts % (Manual) Lymphocytes % (Manual) Monocytes % (Manual) Metamyelocytes % (Man) Abs Neuts (Manual) Nucleated RBCs/100 WBC Differential Comment Toxic Granulation Platelet Estimate Platelet Morphology Dimorphic RBCs PT INR Sodium 155 H Potassium 3.7 D Chloride 125 H Carbon Dioxide 27.2 Anion Gap 3 L BUN 51 H Creatinine 1.30 Estimated GFR 57 L POC Glucose 139 H 108 Random Glucose 104 Calcium 9.3 Total Bilirubin 15.8 H AST 43 H ALT 47 Alkaline Phosphatase 58 Total Protein 4.8 L D Albumin 1.7 L 06/30/18 06/30/18 06/30/18 08:08 10:28 10:38 WBC 3.5 L RBC 1.95 L Hgb 8.3 L Hct 24.6 L MCV 126.0 H MCH 42.7 H MCHC 33.9 RDW 22.9 H Plt Count 26 L MPV 10.0 Prelim Diff (Auto) Slide review pending Neut % (Auto) 82.2 H Lymph % (Auto) 10.7 [place] % (Auto) 6.8 Eos % (Auto) 0.2 Baso % (Auto) 0.1 Neut # (Auto) 2.8 Lymph # (Auto) 0.4 L [place] # (Auto) 0.2 Eos # (Auto) 0.0 Baso # (Auto) 0.0 WBC Differential Manual diff final Seg Neuts % (Manual) 74 H Band Neuts % (Manual) 13 H Lymphocytes % (Manual) 5 L Monocytes % (Manual) 6 Metamyelocytes % (Man) 2 H Abs Neuts (Manual) 3.1 Nucleated RBCs/100 WBC 2 H Differential Comment . Toxic Granulation 2+ H Platelet Estimate Low L Platelet Morphology Normal Dimorphic RBCs Present H PT 43.0 H INR 4.3 Sodium Potassium Chloride Carbon Dioxide Anion Gap BUN Creatinine Estimated GFR POC Glucose 125 H Random Glucose Calcium Total Bilirubin AST ALT Alkaline Phosphatase Total Protein Albumin Microbiology 06/28/18 00:00 Catheterized Urine Urine Culture - Final Shante glabrata Assessment and Plan - Assessment (1) Liver cirrhosis Code(s): K74.60 - Unspecified cirrhosis of liver Status: Acute (2) Hep C w/o coma, chronic Code(s): B18.2 - Chronic viral hepatitis C Status: Chronic - Plan 58 y/o male with history of Hep B, Hep C, and liver cirrhosis admitted on 04/29 after being transferred from [facility] for staghorn renal calculus complicated by UTI. Urology deemed no surgical intervention needed but will need a PCNL in the future as an outpatient. Now pending placement as patient is currently homeless. Patient continues to decline. Lengthy discussion with family members present at the bedside and palliative care regarding patients current condition and poor prognosis. They have elected to proceed with PEG tube placement. Will consult GI. Platelets continue to decline. INR worsening, up to 4.3 today despite Vitamin K. Worsening hypernatremia with Na level now 155. Acute on chronic hepatic encephalopathy, suspect secondary to hyperammonemia and dehydration/poor po intake -Continue Xifaxan and lactulose. Patient not on lactulose since 06/21. STAT ammonia level ordered - 41. Lactulose resumed, goal 2-3 soft BMs daily. +4 large BMs yesterday. -Cognitive evaluation performed by Dr. Mac neuropsychiatry on 05/27, patient does have medical decision capacity. He will need assistance upon discharge based on having mild cognitive disorder. Reconsult requested to assess capacity as patients mentation waxes and wanes. -B12 level 1974. Started on Thiamine replacement, continue. Dysphagia, secondary to acute encephalopathy -re-evaluated by speech therapy - severe oropharyngeal phase dysphagia. NPO. UTI UCX + Shante -discontinue IV ceftriaxone -give IV Fluconazole LUCAS suspect multifactorial in patient with poor p.o. intake and UTI. Possible hepatorenal syndrome. May be contributing to patient's altered mental status. Creatinine up to 1.57, BUN 53, repeat today improved to 1.30 -Continue with IV fluid hydration -Avoid nephrotoxic agents -Continue to monitor kidney function closely ETOH Liver cirrhosis/HCV/HBV S/p treatment with Harvoni and recently tenofovir was prescribed by GI with diagnosis of hepatitis B. The patient was apparently not compliant. Previously worked up in [facility] for liver transplant 2016 but unfortunately was not a candidate due to social issues and lack of support. Last EGD and colonoscopy in November 2016, portal hypertensive gastropathy noted on EGD otherwise both exams were normal. Continue rifaximin, lactulose which patient has refused to take at times. Nadolol on hold due to low-normal BP's. Tenofovir per GI for hepatitis B. -T bilirubin has been trending up as liver cirrhosis likely progressing. Now 15.8 -Patient with poor prognosis. Palliative on board to assist with short-term or long-term goals. Status post fall 06/[address] of the brain. Left forehead abrasion from fall local wound care -fall precautions Nephrolithiasis with UTI -Per urology will need PCNL as an outpatient. Urine culture from 04/30 done at [place] growing Shante glabrata, recent UA 05/07 - no growth in 48 hrs. S/p PO Diflucan treatment for total of 2 weeks. Malnutrition patient with poor p.o. appetite -Continue on Megace - now NPO due to severe dysphagia -Dietitian following, recommends [place] essentials TID, yogurt BID and daily snack Pancytopenia, macrocytic anemia. HIV negative, s/p multiple cryoprecipitate transfusions, 2/2 liver disease and splenomegaly, evaluated by Heme/onc , stable for dc. -continue on Folate -Outpatient follow-up with hematology Coagulopathy secondary to progressive liver failure -INR 4.3 -give daily IV vitamin K -continue to monitor INR, repeat lab in am Hypotension- off nadolol because of hypotension BP better today, 102/62 -continue on IVF -continue to monitor BP closely Hypernatremia, worsening Na 155 -change to D5W -repeat Na level in am Hyperkalemia, likely hemolyzed sample -K 5.5, repeat 4.5 -monitor K level - repeat K 3.7 today Generalized weakness Palliative care following/input appreciated. May be appropriate for hospice. -Out of bed daily. Continue physical therapy Adjustment disorder with flat affect and possible depression -continue Lexapro Hypoglycemia, suspect secondary to poor po intake -accucheks ordered -hypoglycemic protocol DVT prophylaxis: avoid chemical anticoagulation given coagulopathy and thrombocytopenia Discharge Planning: CM assisting with discharge planning. Patient is homeless. Unable to care for himself. Might be appropriate for Hospice. Palliative care following. (1) Liver cirrhosis Qualifiers: Hepatic cirrhosis type: other cirrhosis Qualified Code(s): K74.69 - Other cirrhosis of liver
[2018-06-30] MEDS: Escitalopram 10 MG Tablet PO SCH (23:34)
[2018-07-01] MEDS: Dextrose 5% in Water Inj 1,000 ML IV.CONT SCH ×2 (06:52→14:07)
[2018-07-01 08:18] LABS: Baso % (Auto) 0.2 % (0.0-2.0); Eos % (Auto) 0.1 % (0.0-4.0); Hematocrit 24.2 % (39.0-51.0); Lymph # (Auto) 0.5 th/mm3 (1.0-4.8); Mean Corpuscular HGB Conc 33.1 % (32.0-36.0); Mean Corpuscular Hemoglobin 42.9 pg (27.0-34.0); Mean Corpuscular Volume 129.6 fL (80.0-100.0); Mean Platelet Volume 9.6 fL (7.0-11.0); Mono # (Auto) 0.2 th/mm3 (0.0-0.9); Mono % (Auto) 3.5 % (0.0-8.0); Neut # (Auto) 5.3 th/mm3 (1.8-7.7); Neut % (Auto) 87.2 % (16.0-70.0); Platelet Count 29 th/mm3 (150-450); Red Blood Count 1.87 mil/mm3 (4.50-5.90); Red Cell Distribution Width 22.7 % (11.6-17.2); White Blood Count 6.1 th/mm3 (4.0-11.0)
[2018-07-01 08:24] LABS: Albumin 1.5 g/dL (3.4-5.0); Anion Gap 7 meq/L (5-15); Aspartate Aminotransferase 47 U/L (15-37); Blood Urea Nitrogen 53 mg/dL (7-18); Calcium 9.3 mg/dL (8.5-10.1); Carbon Dioxide 25.4 meq/L (21.0-32.0); Chloride 123 meq/L (98-107); Glomerular Filtration Rate 53 mL/min (>89); Glucose,Random 125 mg/dL (74-106); Potassium 4.3 meq/L (3.5-5.1); Sodium 155 meq/L (136-145)
[2018-07-01 08:27] LABS: Alanine Aminotransferase 50 U/L (12-78); Alkaline Phosphatase 57 U/L (45-117); Total Protein 4.7 g/dL (6.4-8.2)
[2018-07-01 08:53] LABS: Prothrombin Time 46.5 sec (9.8-11.6)
[2018-07-01 08:55] LABS: INR 4.6 Ratio
[2018-07-01 09:28] LABS: Lymphocytes 2 % (9-44); Monocytes 2 % (0-8); Platelet Morphology Normal (Normal); Tallied Nucleated RBC 3 (0-0)
[2018-07-01 09:29] LABS: Pappenheimer Bodies Present
[2018-07-01 09:30] LABS: Howell-Jolly Bodies Present
[2018-07-01] MEDS: Sodium Chloride 0.9% 2 ML Flush BID IV.FLUSH SCH ×2 (09:54→21:47)
[2018-07-01] MEDS: Senna/Docusate Sodium 8.6/50 MG Tablet PO SCH ×2 (09:54→21:47)
[2018-07-01] MEDS: Phytonadione Inj 10 MG/ML Vial SQ SCH (09:54)
[2018-07-01] MEDS: rifAXIMin 550 MG Tablet PO SCH ×2 (09:55→21:48)
[2018-07-01] MEDS: Folic Acid 1 MG Tablet PO SCH (09:55)
[2018-07-01] MEDS: Tenofovir 300 MG Tablet PO SCH (09:58)
[2018-07-01] MEDS ORDERED: Albumin Human 25% Inj 100 ML IV.SIG ONE (10:36)
[2018-07-01] MEDS: Ferrous Sulfate 325 MG Tablet PO SCH ×2 (11:18→16:28)
--- NOTE | 2018-07-01 11:24 | P.DIET ---
Nutritional Evaluation Type of nutrition evaluation: follow-up Nutrition screening: [facility] [place] Screening comments: 06/12/18 [facility] [place] Poor PO Intake 06/18/18 [facility] [place] Poor PO Intake 06/22/18 [facility] [place] malnutrition 06/30/2018 TPN/PPN Subjective Subjective Comments: Nonverbal. From 06/12 note: Pt does not care for the Ensure Enlive and he does not care for Mighty Shakes. Pt says he is willing to try [employer] Essentials and he is receptive to receiving yogurt and peanut butter as a snack daily. Pt nods his head "yes" when asked if he feels like he has lost his appetite. Pt is edentulous. Objective - Diagnosis Kidney Stone, UTI, Jaundice, Liver Failure, Hep C - Objective % IBW: 87 (IBW = 172#) Body Weight Used for Calculations: Actual (67.8 kg) Energy Needs - Lower Range (kCal/kg): 28 Energy Needs - Upper Range (kCal/kg): 32 Lower Limit kCal/kg (kCals): 1,898 Upper Limit kCal/kg (kCals): 2,170 Lower Limit Protein Factor (Grams per Kg): 1.0 Upper Limit Protein Factor (Grams per Kg): 1.5 Lower Protein Needs (Protein): 68 Upper Protein Needs (Protein): 102 Dietitian Reviewed in Medical Record: Curent medications, Intake & Output, Labs , Medical history Diet Order: NPO Speech Therapy Recommendations: Yes (NPO (06/29)) Objective Comments: PMH includes: Hep C, Hep B, Kidney Stone, Liver disease; homelessness Meds Include: Megace started 06/13 Assessment Assessment: Pt is now npo and needs nutrition support. GI unable to place PEG 2' to low platelet count. [facility] [place] for TPN/PPN recommendations acknowledged. For TPN, recommend Clinimix E 5/20 @ 70 mls/hr with 20% lipids @ 10 mls/hr to provide a total of 1958 kcals, and 84 gms protein. If only a peripheral line is available , recommend PPN of Clinimix E 4.25/5 @ 70 mls/hr with 20% lipids @ 10 mls/hr for a total of 1051 kcals and 71 gms protein. Pt will obviously be unable to meet needs with PPN. Please note that RD has been recommending TFing be considered since 06/19. For TF, recommend Jevity 1.5 @ 60 mls/hr to provide 2160 kcals, 92 gms protein and 1094 mls of free water. Recommendations: For TPN: Clinimix E 5/20 @ 70 mls/hr For PPN: Clinimix E 4.25/5 @ 70 mls/hr For lipids 20% lipids @ 10 mls/hr with either TPN or PPN For TF: Jevity 1.5 @ 60 mls/hr goal Dietitian to Monitor: Lab values, Intake & Output, Weight change, PO Intake, Swallow recommendations, Medical course (Initiation of nutrition support)
--- NOTE | 2018-07-01 11:27 | P.PN ---
Subjective Interval history: Patient seen and examined. No interval change. Patient remains encephalopathic. Restless in the bed. Nonverbal. Does not follow any commands. DW nursing staff, patient with low blood pressure. Physical Exam Vital signs: Vital Signs 06/30/18 12:00 06/30/18 16:00 06/30/18 20:00 Temperature 98.0 F 98.4 F 97.4 F L Pulse Rate 98 H 98 H 106 H Respiratory Rate 14 16 18 Blood Pressure 104/64 102/62 98/59 L Pulse Oximetry 95 95 97 07/01/18 00:00 07/01/18 04:00 07/01/18 08:00 Temperature 98.1 F 97.5 F L 98.2 F Pulse Rate 109 H 68 113 H Respiratory Rate 16 16 18 Blood Pressure 102/57 L 99/62 L Pulse Oximetry 96 98 97 07/01/18 10:19 Temperature Pulse Rate Respiratory Rate Blood Pressure 82/58 L Pulse Oximetry Intake & Output 06/30/18 07/01/18 07/01/18 18:59 06:59 18:59 Intake Total 1100 / 1100 2049 Balance 1100 / 1100 2049 Weight 67.8 kg Intake: IV 1100 / 1100 2049 D5W Inj 1,000 ML @ 100 mls/hr 1999 / 1999 IV.CONT .Q10H [facility] Rx#:[id number] D5W/1/2 NS Inj 1,000 ML @ 100 1000 / 1000 mls/hr IV.CONT .Q10H [facility] Rx#: [id number] Diflucan 100 mg Premix Bag 50 50 / 50 ML @ 50 mls/hr IV.SIG ONCE ONE Rx#:[id number] Rocephin Inj 1,000 MG In NS Inj 100 / 100 100 ML @ 200 mls/hr IV.SIG Q24H [facility] Rx#:[id number] Other: # Incontinent Voids 2 Date of Last Bowel Movement 06/29/18 Narrative: GENERAL: Thin chronically ill appearing male patient. Opens eyes briefly to voice. Very lethargic. Does not follow commands. Nonverbal. Tremulous. Restless in bed. SKIN: Warm and dry. +Jaundiced. Mildly edematous diffusely. HEAD: Normocephalic. +small area of ecchymosis left side above left eyebrow, resolving. EYES: Pupils equal and round. +bilateral scleral icterus. No injection or drainage. ENT: No nasal bleeding or discharge. NECK: Trachea midline. CARDIOVASCULAR: Regular rate and rhythm. +3/6 systolic murmur auscultated. RESPIRATORY: No accessory muscle use. Poor effort. Fair air entry. GASTROINTESTINAL: Abdomen soft, non-tender, nondistended. MUSCULOSKELETAL: Extremities without clubbing or cyanosis. NEUROLOGICAL: Lethargic. Opens eyes to voice briefly. Nonverbal. Tremulous. Does not follow commands. Moves all extremities weakly but spontaneously. PSYCHIATRIC: unable to assess due to patients mental condition - Urinary Catheter Management Condom Cath placed during this visit: no Results - Labs CBC & Chem 7: 07/01/18 07:30 07/01/18 07:30 Laboratory Results - last 24 hr 06/30/18 06/30/18 06/30/18 10:28 10:38 18:34 WBC 3.5 L RBC 1.95 L Hgb 8.3 L Hct 24.6 L MCV 126.0 H MCH 42.7 H MCHC 33.9 RDW 22.9 H Plt Count 26 L MPV 10.0 Prelim Diff (Auto) Slide review pending Neut % (Auto) 82.2 H Lymph % (Auto) 10.7 [place] % (Auto) 6.8 Eos % (Auto) 0.2 Baso % (Auto) 0.1 Neut # (Auto) 2.8 Lymph # (Auto) 0.4 L [place] # (Auto) 0.2 Eos # (Auto) 0.0 Baso # (Auto) 0.0 WBC Differential Manual diff final Seg Neuts % (Manual) 74 H Band Neuts % (Manual) 13 H Lymphocytes % (Manual) 5 L Monocytes % (Manual) 6 Metamyelocytes % (Man) 2 H Abs Neuts (Manual) 3.1 Nucleated RBCs/100 WBC 2 H Differential Comment . Toxic Granulation 2+ H Platelet Estimate Low L Platelet Morphology Normal Dimorphic RBCs Present H Pappenheimer Bodies Hernandez-[place] Bodies PT 43.0 H INR 4.3 Sodium Potassium Chloride Carbon Dioxide Anion Gap BUN Creatinine Estimated GFR POC Glucose 126 H Random Glucose Calcium Total Bilirubin AST ALT Alkaline Phosphatase Total Protein Albumin 06/30/18 07/01/18 07/01/18 23:25 07:30 07:30 WBC 6.1 D RBC 1.87 L Hgb 8.0 L Hct 24.2 L MCV 129.6 H D MCH 42.9 H MCHC 33.1 RDW 22.7 H Plt Count 29 L MPV 9.6 Prelim Diff (Auto) Slide review pending Neut % (Auto) 87.2 H Lymph % (Auto) 9.0 [place] % (Auto) 3.5 Eos % (Auto) 0.1 Baso % (Auto) 0.2 Neut # (Auto) 5.3 Lymph # (Auto) 0.5 L [place] # (Auto) 0.2 Eos # (Auto) 0.0 Baso # (Auto) 0.0 WBC Differential Manual diff final Seg Neuts % (Manual) 85 H Band Neuts % (Manual) 11 H Lymphocytes % (Manual) 2 L Monocytes % (Manual) 2 Metamyelocytes % (Man) Abs Neuts (Manual) 5.9 Nucleated RBCs/100 WBC 3 H Differential Comment . Toxic Granulation Platelet Estimate Low L Platelet Morphology Normal Dimorphic RBCs Pappenheimer Bodies Present H Hernandez-Al[place] Bodies Present H PT 46.5 H INR 4.6 Sodium Potassium Chloride Carbon Dioxide Anion Gap BUN Creatinine Estimated GFR POC Glucose 137 H Random Glucose Calcium Total Bilirubin AST ALT Alkaline Phosphatase Total Protein Albumin 07/01/18 07/01/18 07:30 10:02 WBC RBC Hgb Hct MCV MCH MCHC RDW Plt Count MPV Prelim Diff (Auto) Neut % (Auto) Lymph % (Auto) [place] % (Auto) Eos % (Auto) Baso % (Auto) Neut # (Auto) Lymph # (Auto) [place] # (Auto) Eos # (Auto) Baso # (Auto) WBC Differential Seg Neuts % (Manual) Band Neuts % (Manual) Lymphocytes % (Manual) Monocytes % (Manual) Metamyelocytes % (Man) Abs Neuts (Manual) Nucleated RBCs/100 WBC Differential Comment Toxic Granulation Platelet Estimate Platelet Morphology Dimorphic RBCs Pappenheimer Bodies Hernandez-Alton Bodies PT INR Sodium 155 H Potassium 4.3 Chloride 123 H Carbon Dioxide 25.4 Anion Gap 7 BUN 53 H Creatinine 1.39 H Estimated GFR 53 L POC Glucose 126 H Random Glucose 125 H Calcium 9.3 Total Bilirubin 17.1 H AST 47 H ALT 50 Alkaline Phosphatase 57 Total Protein 4.7 L Albumin 1.5 L Microbiology 06/28/18 00:00 Catheterized Urine Urine Culture - Final Shante glabrata Assessment and Plan - Assessment (1) Liver cirrhosis Code(s): K74.60 - Unspecified cirrhosis of liver Status: Acute (2) Hep C w/o coma, chronic Code(s): B18.2 - Chronic viral hepatitis C Status: Chronic - Plan 58 y/o male with history of Hep B, Hep C, and liver cirrhosis admitted on 04/29 after being transferred from [facility] for staghorn renal calculus complicated by UTI. Urology deemed no surgical intervention needed but will need a PCNL in the future as an outpatient. Now pending placement as patient is currently homeless. Patient continues to decline. on 06/30 and 07/01 Lengthy discussion with family members present at the bedside and palliative care regarding patients current condition and poor prognosis. Patient is NPO due to worsening mentation. Family continues to want aggressive care and elected to proceed with PEG tube placement. GI consulted but patient is high risk due to low platelet count. INR 4.6, on daily Vitamin K. Worsening hypernatremia with Na level 155, on D5W. Bili trending up. Acute on chronic hepatic encephalopathy, suspect secondary to hyperammonemia and dehydration/poor po intake -Continue Xifaxan and lactulose - patient now NPO. -Patient not on lactulose since 06/21. STAT ammonia level ordered - 41. Lactulose resumed, goal 2-3 soft BMs daily. -Cognitive evaluation performed by Dr. Mac neuropsychiatry on 05/27, patient does have medical decision capacity. He will need assistance upon discharge based on having mild cognitive disorder. Reconsult requested to assess capacity as patients mentation waxes and wanes. -B12 level 1974. Started on Thiamine replacement, continue. -recheck ammonia level ?lactulose enema if elevated Dysphagia, secondary to acute encephalopathy -re-evaluated by speech therapy - severe oropharyngeal phase dysphagia. Keep NPO. Concern for uncontrollable bleeding with insertion of Dobbhoff or NG tube given patient's low platelet count, not ideal but will begin PPN. Dietitian consulted for recommendations. Discussed concern for bacteremia and sepsis as a result, patient's family states understanding. UTI repeat UCX 06/28 + Shante -discontinue IV ceftriaxone -on IV Fluconazole LUCAS suspect multifactorial in patient with poor p.o. intake and UTI. Possible hepatorenal syndrome. May be contributing to patient's altered mental status. Creatinine up to 1.57, BUN 53, repeat today 1.39 -Continue with IV fluid hydration -Avoid nephrotoxic agents -Continue to monitor kidney function closely ETOH Liver cirrhosis/HCV/HBV S/p treatment with Harvoni and recently tenofovir was prescribed by GI with diagnosis of hepatitis B. The patient was apparently not compliant. Previously worked up in [facility] for liver transplant 2016 but unfortunately was not a candidate due to social issues and lack of support. Last EGD and colonoscopy in November 2016, portal hypertensive gastropathy noted on EGD otherwise both exams were normal. Continue rifaximin, lactulose which patient has refused to take at times. Nadolol on hold due to low-normal BP's. Tenofovir per GI for hepatitis B. -T bilirubin has been trending up as liver cirrhosis likely progressing. Now 17.1. -Patient with poor prognosis. Palliative on board to assist with short-term or long-term goals. Status post fall 06/[address] of the brain. Left forehead abrasion from fall local wound care -fall precautions Nephrolithiasis with UTI -Per urology will need PCNL as an outpatient. Urine culture from 04/30 done at [facility] growing Shante glabrata Pancytopenia, macrocytic anemia Thrombocytopenia Coagulopathy Secondary to progressive liver disease HIV negative, s/p multiple cryoprecipitate transfusions, 2/2 liver disease and splenomegaly, evaluated by Heme/onc , stable for dc. Outpatient follow up with hematology. -continue on Folate -platelet count 29 -INR 4.3 -continue daily IV vitamin K -continue to monitor CBC and INR Hypotension- off nadolol because of hypotension BP 82/58, MAP 66 -continue on IVF -Begin scheduled IV Albumin TID -continue to monitor BP closely Hypernatremia, persistent Na 155 -changed to D5W -repeat Na level in am Hyperkalemia, likely hemolyzed sample -K 5.5, repeat 4.5 -monitor K level - repeat K 4.3 today Generalized weakness Palliative care following/input appreciated. May be appropriate for hospice. -Out of bed daily. Continue physical therapy Adjustment disorder with flat affect and possible depression -continue Lexapro, now NPO Hypoglycemia, suspect secondary to poor po intake -accucheks ordered -hypoglycemic protocol DVT prophylaxis: avoid chemical anticoagulation given coagulopathy and thrombocytopenia Code Status: Full Discussed Condition With: patient, nursing staff, Dr. Sol Discharge Planning: CM assisting with discharge planning. Patient is homeless. Unable to care for himself. Might be appropriate for Hospice but family still wants aggressive treatment. Palliative care following. (1) Liver cirrhosis Qualifiers: Hepatic cirrhosis type: other cirrhosis Qualified Code(s): K74.69 - Other cirrhosis of liver
--- NOTE | 2018-07-01 13:00 | P.PNPAL ---
Reason for Visit Reason for visit: a. To assist with evaluation and management of symptoms including: Encephalopathy, pain b. To assist medical decision maker(s) with: better understanding of current medical conditions; weighing benefits/burdens of medical treatment options; making medical treatment decisions. Subjective Subjective/Interval History: This 58-year-old patient who was transferred here to [facility] from [facility] in [place] on 04/29/18. There he had gone for evaluation of right-sided abdominal pain on 04/28. He also presented with constipation and dark urine. Abdominal CT indicative of portal hypertension changes, cirrhotic liver, and 3.5 cm staghorn calculus right kidney with possible mild duodenitis and cholelithiasis. + pancytopenia, + UTI - started on zosyn IV. He was transferred to [place] due to staghorn calculus w concomitant infection, and requiring a urologist evaluation. also noted to have chronic hep C, cirrhosis, stable Neuropsychiatry prev consulted to assist with determining if patient has capacity to make medical decisions. He had previously been deemed capacitated to make medical decisions however also was recommended for support outside of the hospital upon discharge due to cognitive deficits. . . Seen today to follow-up on comfort, goals with patient and/or decision makers. Patient brother Arley, other family members are present today. He remains encephalopathic. Bilirubin continues to trend upwards 17.1. PT elevated 46.5, INR 4.6. Sodium remains elevated 1 24.2. Platelets up slightly 29. med attending plans to start PPN today, GI unable to place feeding tube 2/2 thrombocytopenia Seen in room family at bedside. Winking/tremor motion to rt eye. Does open eyes briefly to look at family seems to recognize their presence. Does not follow commands. Restless. moves 4 extremities weakly. Does not verbalize. +jaundiced. Generalized edema. At times with irregular/shallow resp pattern. Discussed at length with brother Arley, niece Annamraia and other family member briefly review hospital course. Review current assessment, conditions, diagnostics, liver disease process irreversible. Review of likely trajectory going forward that patient expected to continue to experience potential complications and setbacks due to liver dysfunction. High risk for multiorgan failure including respiratory decompensation, cardiac decompensation would anticipate transfer to ICU when that occurs.Review risks/benefits /burdens of ongoing interventions such as PPN, other artificial measures. Explore he is not likely to survive even with ongoing aggressive interventions. Family endorses to continue available treatments. family requests call to correctional facility where pt sister Sruthi is incarcerated to facilitate her possibly being granted furlough. Call to facility # provided, spoke with Lieutenant Adair, who is able to put me through to the patient sister Sruthi. She advises she was family last night on patient's critical condition. Briefly review with her patient underlying disease status, his current assessment and expected trajectory, prognosis. She indicates she is trying to work with correctional facility to be granted visitation to him. Provided her and with my direct contact number so they may reach me back to verify what ever additional things they need to verify for her visitation. She anticipates possibly visiting him on Friday. Discussed at length with medical attending SOHAN. Advance Directives Advance Directives Date on File: 05/07/18 Health Care Surrogate Name and Number: Names brother Arley Valadez (brett) Objective Vital Signs: Vital Signs 06/30/18 16:00 06/30/18 20:00 07/01/18 00:00 Temperature 98.4 F 97.4 F L 98.1 F Pulse Rate 98 H 106 H 109 H Respiratory Rate 16 18 16 Blood Pressure 102/62 98/59 L 102/57 L Pulse Oximetry 95 97 96 07/01/18 04:00 07/01/18 08:00 07/01/18 10:19 Temperature 97.5 F L 98.2 F Pulse Rate 68 113 H Respiratory Rate 16 18 Blood Pressure 99/62 L 82/58 L Pulse Oximetry 98 97 Intake & Output 06/30/18 07/01/18 07/01/18 18:59 06:59 18:59 Intake Total 1100 / 1100 2049 Balance 1100 / 1100 2049 Weight 67.8 kg Intake: IV 1100 / 1100 2049 D5W Inj 1,000 ML @ 100 mls/hr 1999 IV.CONT .Q10H [facility] Rx#:[id number] D5W/1/2 NS Inj 1,000 ML @ 100 1000 / 1000 mls/hr IV.CONT .Q10H [facility] Rx#: [id number] Diflucan 100 mg Premix Bag 50 50 / 50 ML @ 50 mls/hr IV.SIG ONCE ONE Rx#:[id number] Rocephin Inj 1,000 MG In NS Inj 100 / 100 100 ML @ 200 mls/hr IV.SIG Q24H [facility] Rx#:[id number] Other: # Incontinent Voids 2 Date of Last Bowel Movement 06/29/18 07/01/18 Physical Exam: CONSTITUTIONAL/GENERAL: This is a chronically ill appearing male, very lethargic ,weak, nonverbal, + temporal wasting TUBES/LINES/DRAINS: PIV UE. SKIN: No rashes, or lesions. +Ecchymoses & small petechiae scattered over body. Fading small ecchymosis above left eyebrow. jaundice. Skin warm/dry. EYES: Pupils equal and round and reactive. Extraocular motions intact. + scleral icterus. No injection or drainage. Fundi not examined. ENT: Nose without bleeding or purulent drainage. Does not open mouth for oropharynx exam. CARDIOVASCULAR: Regular rate and rhythm , 3/6 systolic murmur . No JVD. Peripheral pulses symmetric. Chronic vascular changes to skin bilateral lower legs RESPIRATORY/CHEST: Symmetric, unlabored respirations. irregular and shallow intermittently. on room air. Clear to auscultation, decreased air movement throughout. Breath sounds equal bilaterally. GASTROINTESTINAL: Abdomen soft, no apparent tenderness, nondistended/slight splenomegaly .no ascites. No guarding. Bowel sounds hypoactive. MUSCULOSKELETAL: Extremities without clubbing, cyanosis. No joint tenderness or effusion noted. chronic vascular discoloration visible to bilateral lower legs NEUROLOGICAL: Very lethargic . Slight brief eye opening. Does not follow any commands. Does not verbalize. Minimal weak movement localizing to touch on extremities. PSYCHIATRIC: Too lethargic to assess . Diagnostic Tests Laboratory: Laboratory Results - last 72 hr 06/28/18 06/28/18 06/28/18 04:05 14:21 18:22 WBC RBC Hgb Hct MCV MCH MCHC RDW Plt Count MPV Prelim Diff (Auto) Neut % (Auto) Lymph % (Auto) George % (Auto) Eos % (Auto) Baso % (Auto) Neut # (Auto) Lymph # (Auto) George # (Auto) Eos # (Auto) Baso # (Auto) WBC Differential Diff Scan Seg Neuts % (Manual) Band Neuts % (Manual) Lymphocytes % (Manual) Monocytes % (Manual) Metamyelocytes % (Man) Abs Neuts (Manual) Nucleated RBCs/100 WBC Differential Comment Toxic Granulation Platelet Estimate Platelet Morphology Dimorphic RBCs Pappenheimer Bodies Hernandez-Conception Bodies PT 36.9 H INR 3.7 Sodium Potassium Chloride Carbon Dioxide Anion Gap BUN Creatinine Estimated GFR POC Glucose 153 H Random Glucose Calcium Total Bilirubin AST ALT Alkaline Phosphatase Total Protein Albumin Vitamin B12 1975 H 06/28/18 06/29/18 06/29/18 22:03 03:10 08:06 WBC RBC Hgb Hct MCV MCH MCHC RDW Plt Count MPV Prelim Diff (Auto) Neut % (Auto) Lymph % (Auto) George % (Auto) Eos % (Auto) Baso % (Auto) Neut # (Auto) Lymph # (Auto) George # (Auto) Eos # (Auto) Baso # (Auto) WBC Differential Diff Scan Seg Neuts % (Manual) Band Neuts % (Manual) Lymphocytes % (Manual) Monocytes % (Manual) Metamyelocytes % (Man) Abs Neuts (Manual) Nucleated RBCs/100 WBC Differential Comment Toxic Granulation Platelet Estimate Platelet Morphology Dimorphic RBCs Pappenheimer Bodies Hernandez-Conception Bodies PT INR Sodium 147 H Potassium 5.5 H D Chloride 120 H Carbon Dioxide 22.4 Anion Gap 5 BUN 58 H Creatinine 1.54 H Estimated GFR 47 L POC Glucose 147 H 142 H Random Glucose 125 H Calcium 9.3 Total Bilirubin 15.3 H AST 81 H ALT 50 Alkaline Phosphatase 67 Total Protein 5.5 L Albumin 1.5 L Vitamin B12 06/29/18 06/29/18 06/29/18 10:16 14:38 14:38 WBC 5.5 RBC 2.23 L Hgb 9.6 L Hct 28.7 L MCV 128.8 H MCH 43.0 H MCHC 33.4 RDW 24.1 H Plt Count 36 L MPV 9.6 Prelim Diff (Auto) Slide review pending Neut % (Auto) 87.4 H Lymph % (Auto) 5.1 L George % (Auto) 7.3 Eos % (Auto) 0.2 Baso % (Auto) 0.0 Neut # (Auto) 4.8 Lymph # (Auto) 0.3 L George # (Auto) 0.4 Eos # (Auto) 0.0 Baso # (Auto) 0.0 WBC Differential . Diff Scan Auto diff confirmed Seg Neuts % (Manual) Band Neuts % (Manual) Lymphocytes % (Manual) Monocytes % (Manual) Metamyelocytes % (Man) Abs Neuts (Manual) Nucleated RBCs/100 WBC Differential Comment . Toxic Granulation Platelet Estimate Low L Platelet Morphology Normal Dimorphic RBCs Pappenheimer Bodies Hernandez-Conception Bodies PT INR Sodium Potassium 4.5 D Chloride Carbon Dioxide Anion Gap BUN Creatinine Estimated GFR POC Glucose Random Glucose 126 H Calcium Total Bilirubin AST ALT Alkaline Phosphatase Total Protein Albumin Vitamin B12 06/29/18 06/30/18 06/30/18 23:01 05:47 06:31 WBC RBC Hgb Hct MCV MCH MCHC RDW Plt Count MPV Prelim Diff (Auto) Neut % (Auto) Lymph % (Auto) George % (Auto) Eos % (Auto) Baso % (Auto) Neut # (Auto) Lymph # (Auto) George # (Auto) Eos # (Auto) Baso # (Auto) WBC Differential Diff Scan Seg Neuts % (Manual) Band Neuts % (Manual) Lymphocytes % (Manual) Monocytes % (Manual) Metamyelocytes % (Man) Abs Neuts (Manual) Nucleated RBCs/100 WBC Differential Comment Toxic Granulation Platelet Estimate Platelet Morphology Dimorphic RBCs Pappenheimer Bodies Hernandez-Conception Bodies PT INR Sodium 155 H Potassium 3.7 D Chloride 125 H Carbon Dioxide 27.2 Anion Gap 3 L BUN 51 H Creatinine 1.30 Estimated GFR 57 L POC Glucose 139 H 108 Random Glucose 104 Calcium 9.3 Total Bilirubin 15.8 H AST 43 H ALT 47 Alkaline Phosphatase 58 Total Protein 4.8 L D Albumin 1.7 L Vitamin B12 06/30/18 06/30/18 06/30/18 08:08 10:28 10:38 WBC 3.5 L RBC 1.95 L Hgb 8.3 L Hct 24.6 L MCV 126.0 H MCH 42.7 H MCHC 33.9 RDW 22.9 H Plt Count 26 L MPV 10.0 Prelim Diff (Auto) Slide review pending Neut % (Auto) 82.2 H Lymph % (Auto) 10.7 George % (Auto) 6.8 Eos % (Auto) 0.2 Baso % (Auto) 0.1 Neut # (Auto) 2.8 Lymph # (Auto) 0.4 L George # (Auto) 0.2 Eos # (Auto) 0.0 Baso # (Auto) 0.0 WBC Differential Manual diff final Diff Scan Seg Neuts % (Manual) 74 H Band Neuts % (Manual) 13 H Lymphocytes % (Manual) 5 L Monocytes % (Manual) 6 Metamyelocytes % (Man) 2 H Abs Neuts (Manual) 3.1 Nucleated RBCs/100 WBC 2 H Differential Comment . Toxic Granulation 2+ H Platelet Estimate Low L Platelet Morphology Normal Dimorphic RBCs Present H Pappenheimer Bodies Hernandez-Conception Bodies PT 43.0 H INR 4.3 Sodium Potassium Chloride Carbon Dioxide Anion Gap BUN Creatinine Estimated GFR POC Glucose 125 H Random Glucose Calcium Total Bilirubin AST ALT Alkaline Phosphatase Total Protein Albumin Vitamin B12 06/30/18 06/30/18 07/01/18 18:34 23:25 07:30 WBC 6.1 D RBC 1.87 L Hgb 8.0 L Hct 24.2 L MCV 129.6 H D MCH 42.9 H MCHC 33.1 RDW 22.7 H Plt Count 29 L MPV 9.6 Prelim Diff (Auto) Slide review pending Neut % (Auto) 87.2 H Lymph % (Auto) 9.0 George % (Auto) 3.5 Eos % (Auto) 0.1 Baso % (Auto) 0.2 Neut # (Auto) 5.3 Lymph # (Auto) 0.5 L George # (Auto) 0.2 Eos # (Auto) 0.0 Baso # (Auto) 0.0 WBC Differential Manual diff final Diff Scan Seg Neuts % (Manual) 85 H Band Neuts % (Manual) 11 H Lymphocytes % (Manual) 2 L Monocytes % (Manual) 2 Metamyelocytes % (Man) Abs Neuts (Manual) 5.9 Nucleated RBCs/100 WBC 3 H Differential Comment . Toxic Granulation Platelet Estimate Low L Platelet Morphology Normal Dimorphic RBCs Pappenheimer Bodies Present H Hernandez-Conception Bodies Present H PT INR Sodium Potassium Chloride Carbon Dioxide Anion Gap BUN Creatinine Estimated GFR POC Glucose 126 H 137 H Random Glucose Calcium Total Bilirubin AST ALT Alkaline Phosphatase Total Protein Albumin Vitamin B12 07/01/18 07/01/18 07/01/18 07:30 07:30 10:02 WBC RBC Hgb Hct MCV MCH MCHC RDW Plt Count MPV Prelim Diff (Auto) Neut % (Auto) Lymph % (Auto) George % (Auto) Eos % (Auto) Baso % (Auto) Neut # (Auto) Lymph # (Auto) George # (Auto) Eos # (Auto) Baso # (Auto) WBC Differential Diff Scan Seg Neuts % (Manual) Band Neuts % (Manual) Lymphocytes % (Manual) Monocytes % (Manual) Metamyelocytes % (Man) Abs Neuts (Manual) Nucleated RBCs/100 WBC Differential Comment Toxic Granulation Platelet Estimate Platelet Morphology Dimorphic RBCs Pappenheimer Bodies Hernandez-Conception Bodies PT 46.5 H INR 4.6 Sodium 155 H Potassium 4.3 Chloride 123 H Carbon Dioxide 25.4 Anion Gap 7 BUN 53 H Creatinine 1.39 H Estimated GFR 53 L POC Glucose 126 H Random Glucose 125 H Calcium 9.3 Total Bilirubin 17.1 H AST 47 H ALT 50 Alkaline Phosphatase 57 Total Protein 4.7 L Albumin 1.5 L Vitamin B12 Result Diagrams: 07/01/18 07:30 07/01/18 07:30 Microbiology: Microbiology 06/28/18 00:00 Urine Culture - Final Catheterized Urine Shante glabrata Assessment and Plan - Disease Oriented Problem List (1) Hepatitis B infection (2) Staghorn renal calculus (3) Acute UTI (4) Liver cirrhosis (5) Hep C w/o coma, chronic Pertinent Non-Medical Issues: Psychosocial: Patient indicates originally from [place]. Did live in [place] for about a year but has since been in [place] for several years. 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 Has 7 siblings though does not remain in close communication with them. Spiritual: Anglican, no particular affiliation. Requests communication professor visit, communication professor notified. Legal:Patient today mildly encephalopathic. Ammonia level elevated. Partially oriented. Appears capacitated enough to participate some in decision making but does not have full insight. He is able to designate healthcare surrogate names his brother Arley Valaedz as someone he would trust to make decisions in an emergency. Would recommend shared decision making at this point given his fluctuating mental status. Ethical issues impacting care: No ethical issues identified Important Contacts: Brother Arley Valadez (Brett) in [place]- new #[phone] XXX OLD# XXX [phone] Brother ARLEY in [place] [phone] [phone]/ Lieutenant Adair . Prognosis: Patient is a poor historian, full medical history not readily available. Appears he has had some component of chronic liver disease, now with superimposed acute liver dysfunction. Hepatitis B, hepatitis C positive. Initiated on treatment here. Encephalopathic. Bilirubin trending up. Possible current acute disease process may be stable with ongoing aggressive treatment w antiviral, though he remains high risk for ongoing if liver disease does not stabilize or respond to treatment. He was stable for a few weeks of time here however he has had clinical deterioration in the past week, more pronounced in the past several days. Bilirubin uptrending, liver functions no longer elevating. Some hypotension . High risk for continued deterioration and . appropriate for hospice. Code Status: Full Code Plan: * Legal decision maker:Patient today mildly encephalopathic. Ammonia level elevated. Partially oriented. Appears capacitated enough to participate some in decision making but does not have full insight. He is able to designate healthcare surrogate names his brother rAley Valadez as someone he would trust to make decisions in an emergency. Would recommend shared decision making at this point given his fluctuating mental status.Brothers have previously indicated that they would be unable to help the patient physically or with housing for DC however they would remain available over the phone to assist him as needed. * Goals: Per initial interaction: patient goals stated to continue treatment he "wants to live ". He has limited insight and understanding at this time. Designated his brother Arley/Clifton as healthcare surrogate. I have spoken at length with this brother today. He is in agreement to serve as HCS. Update and review of conditions provided today to brother. He wishes to talk to other family members, process information. No decisions made today. He plans to talk further with palliative tomorrow 05/12/18. He is unable to care for patient himself he lives out of state. He feels patient will likely need placement. Patient just moved here from [place] possibly in March at that time he had Medicaid coverage in [place]. * 07/01 Brother Arley (supported by additional family) elects to proceed with ongoing aggressive tx, keep patient full code. they are working with correctional facility in [place] in order for sister there to be able to visit him this week, possibly Friday. * CODE STATUS: Full code * SYMPTOMS: --Pain-has had some ongoing pain to right flank/abdomen indicates this was new onset at time of presentation to [facility]. He has previously endorsed good relief with use of prn--indicates he had not previously been on any chronic opiates for chronic pain syndromes. Oxycodone 5 mg had been effective a few times per day. Patient now with increased lethargy over the past few days, worsening encephalopathy. Cautious use of opiates or benzos given deteriorating mental status. --Encephalopathy-patient with fluctuating mental status, hepatitis, bilirubin trending up, ammonia level also up and down during hospitalization. Bilirubin at some point stopped trending up; however uptrending past few days, up to 15.8. GI following, now signed off. Was on PO On lactulose, rifaximin . Has been receiving hepatitis treatments. Previously oriented though forgetful. MELD 36. -- dyspnea/dysphagia- more lethargic, high risk for aspiration/respiratory decline 2/2 to neurological status. Now NPO. -- n/v-intermittent, has prn zofran available. Previously endorsed nausea. now lethargic, no c/o * Palliative care will continue to follow during hospital course as condition evolves, to assist patient/decision-maker with understanding of medical conditions, weighing benefits/burdens of treatment options, for clarification of goals of treatment. Additionally will assist with any symptoms of palliative concern Attestation Attestation: To help prompt me to consider important information that might be impacting today's encounter and assessment, information from prior notes written by myself or my colleagues may have been "brought forward" into today's note. My signature on this note, however, is an attestation that I personally performed the exam, history, and/or decision-making noted today, and, unless otherwise indicated, the interactions with patient, family, and staff as well as the review of records all occurred today. I also attest that the listed assessment and stated plan reflect my best clinical judgment today based on the combination of historical information, prior notes, and today's exam/ interactions. When time spent is documented, it refers only to time spent today by the signer, or if indicated, combined time spent today by collaborating physician/nurse practitioner.
[2018-07-01] MEDS: Albumin Human 25% Inj 50 ML IV.SIG SCH (17:57)
[2018-07-01 18:51] LABS: Hematocrit 20.9 % (39.0-51.0); Hemoglobin 6.6 gm/dL (13.0-17.0)
[2018-07-01 19:07] LABS: Albumin 1.7 g/dL (3.4-5.0); Anion Gap 5 meq/L (5-15); Aspartate Aminotransferase 41 U/L (15-37); Blood Urea Nitrogen 57 mg/dL (7-18); Calcium 9.6 mg/dL (8.5-10.1); Carbon Dioxide 24.6 meq/L (21.0-32.0); Chloride 124 meq/L (98-107); Glomerular Filtration Rate 43 mL/min (>89); Glucose,Random 109 mg/dL (74-106); Magnesium 2.1 mg/dL (1.5-2.5); Potassium 4.6 meq/L (3.5-5.1); Sodium 154 meq/L (136-145)
[2018-07-01 19:09] LABS: Alanine Aminotransferase 45 U/L (12-78); Phosphorus 1.5 mg/dL (2.5-4.9)
[2018-07-01 19:20] LABS: Alkaline Phosphatase 47 U/L (45-117); Total Protein 4.4 g/dL (6.4-8.2)
[2018-07-01 19:22] LABS: Triglycerides 34 mg/dL (42-150)
[2018-07-01] MEDS ORDERED: Sodium Chlor 0.9% Inj 500 ML IV.SIG SCH (19:30)
[2018-07-01] MEDS ORDERED: Multivitamin Inj 10 ML, Folic Acid Inj 1 MG in AA 4.25 %/D5W - Electrolytes 2,000 ML IV.SIG SCH (20:00)
[2018-07-01] MEDS ORDERED: Sodium Chlor 0.9% Inj 250 ML IV.SIG SCH ×2 (20:00→21:00)
[2018-07-01] MEDS ORDERED: Morphine Inj 4 MG/ML Vial IV.PUSH ONE (20:48)
[2018-07-01] MEDS ORDERED: Sod Chloride 0.9% Inj 1,000 ML IV.SIG ONE (20:52)
[2018-07-01] MEDS ORDERED: Morphine Inj 4 MG/ML Vial ONE (20:53)
--- NOTE | 2018-07-01 21:05 | P.CONCC ---
History of Present Illness Service: Critical care Consult date: 07/01/18 Requesting Physician: Leslie Summers Reason for Consult: GI bleed, hemorrhagic shock Primary Care Provider: No Primary Care Physician Chief Complaint: Melanotic stools hypotension History of Present Illness: Patient is a 58 y/o male with history of Hep B, Hep C, and liver cirrhosis admitted on 04/29 after being transferred from [facility] for staghorn renal calculus complicated by UTI. Urology was consulted at that time , deemed no surgical intervention needed at this time. Patient had been treated with IV antibiotics and antifungals for UTI. GI was consulted for management of end-stage liver disease and pancytopenia. Last EGD and colonoscopy in November 2016, portal hypertensive gastropathy noted on EGD. During the hospital course, he continued to decline with worsening liver function and coagulopathy. Today's a.m. labs showed a hemoglobin 8 platelet 29 INR 4.6 bilirubin of 20 BUN 57 with a creatinine of 1.66. Today evening patient developed large melanotic stools and became hypotensive a stat hemoglobin showed 6.6. 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 Patient continues to have worsening hypotension and was moved to the ICU critical care medicine was consulted I evaluated the patient in the ICU emergently. Currently systolic blood pressures in the 70s, Levophed had been started currently at 5 mcg/min. Patient is very encephalopathy unable to follow commands. Type and crossmatch, followed by blood transfusion is pending at this time. Palliative care is following, and at this time patient is a full code. Dr. Bonner from GI recommends PPI and supportive care. In addition to blood product resuscitation, I will started on octreotide infusion and Rocephin for SBP prophylaxis. Prognosis is guarded at this time. I suspect a variceal bleed. 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 EXAMINER) Hx of hepatitis C Kidney stone Liver disease MDRO (multiple drug resistant organisms) resistance Onset Date: ~06/13/18 - Surgical History Surgical History: Surgical History (Last Reviewed 06/26/18 @ 08:32 by Nelly Crockett) Hx of cholecystectomy - Family History Family History: Family History (Last Reviewed 06/22/18 @ 09:32 by Anna Saletr) Other Diabetes Hypertension - Tobacco History Second Hand Smoke Exposure: Yes Tobacco Use In Past 30 Days: Yes Smoking Status: Former smoker Tobacco Type: Cigarettes - Alcohol History How Often Do You Have a Drink Containing Alcohol: Monthly or less (prior heavy alcohol use.) - Substance Use History Substance History: No History of Abuse (Denies use) - Substance Use Type Marijuana Status: Active Route Used: By Mouth Reason for Use: Calm Down, Feels Good - Travel History Recent Travel in the [place] Within the Last 8 Weeks: No Recent Travel Out of the Country Within the Last 8 Weeks: No - Immunization History Tetanus Immunization: <5 Years Hx Influenza Vaccine This Season: No Medications and Allergies Active Medications: Active Medications Acetaminophen (Tylenol) 650 mg PO Q4H PRN PRN Reason: SEE LABEL COMMENTS Last Admin: 06/19/18 22:14 Dose: 650 mg Al Hydroxide/Mg Hydroxide (Milk Of Fay Sanders) 30 ml PO Q12H PRN PRN Reason: Mild Constipation Last Admin: 06/24/18 17:34 Dose: 30 ml Artificial Tears (Refresh Tears 0.5% Opth Drops) 1 drop EACH EYE TID PRN PRN Reason: DRY EYE(S) Last Admin: 05/27/18 10:40 Dose: 1 drop Bisacodyl (Dulcolax Supp) 10 mg RECTAL DAILY PRN PRN Reason: SEVERE CONSITIPATION Last Admin: 06/28/18 17:28 Dose: 10 mg Dextrose (D50w Vial) 50 ml IV.PUSH UNSCH PRN PRN Reason: PER HYPOGLYCEMIA PROTOCOL Escitalopram Oxalate (Lexapro) 10 mg PO HS NIRAJ Last Admin: 06/30/18 23:34 Dose: Not Given Ferrous Sulfate (Ferosul) 325 mg PO BID@1200,1700 NIRAJ Last Admin: 07/01/18 16:28 Dose: Not Given Folic Acid (Folic Acid) 1 mg PO DAILY NIRAJ Last Admin: 07/01/18 09:55 Dose: Not Given Glucagon (Glucagon Inj) 1 mg OTHER PRN PRN PRN Reason: for Hypoglycemia Protocol Sodium Chloride 38.5 meq/ (Sterile Water) 1,009.625 mls @ 42 mls/hr IV.CONT .Q24H NIRAJ Last Infusion: 06/29/18 07:27 Dose: Infused Dextrose (D5w Inj) 1,000 mls @ 100 mls/hr IV.CONT .Q10H NIRAJ Last Admin: 07/01/18 14:07 Dose: 100 mls/hr Fluconazole (Diflucan 100 Mg Premix Bag) 50 mls @ 50 mls/hr IV.SIG Q24H NIRAJ Last Infusion: 07/01/18 16:24 Dose: Infused Multivitamins 10 ml/ Folic Acid 1 mg/ Amino Acids/Electrolytes/Dextrose 2, 010.2 mls @ 70 mls/hr IV.SIG Q24H NIRAJ Fat Emulsion Intravenous (Intralipid 20% Inj) 250 mls @ 10 mls/hr IV.SIG Q24H NIRAJ Albumin Human (Flexbumin 25% Inj) 50 mls @ 60 mls/hr IV.SIG TID NIRAJ Last Infusion: 07/01/18 19:34 Dose: Infused Sodium Chloride (Ns Inj) 250 mls @ 15 mls/hr IV.SIG ONCE NIRAJ Stop: 07/02/18 12:39 Sodium Chloride (Ns Inj) 250 mls @ 15 mls/hr IV.SIG ONCE NIRAJ Stop: 07/02/18 13:39 Lactulose (Lactulose Liq) 30 ml PO QID [facility] Last Admin: 07/01/18 17:25 Dose: Not Given Megestrol Acetate (Megace) 40 mg PO BID [facility] Last Admin: 07/01/18 09:54 Dose: Not Given Melatonin (Melatonin) 5 mg PO HS PRN PRN Reason: INSOMNIA Last Admin: 06/19/18 22:13 Dose: 5 mg Metoclopramide HCl (Reglan Inj) 5 mg IV.PUSH Q8HR [facility]; Protocol Stop: 07/03/18 21:59 Last Admin: 06/29/18 13:03 Dose: Not Given Midodrine (Proamatine) 5 mg PO TID@0700,1200,1700 [facility] Last Admin: 07/01/18 16:28 Dose: Not Given Mupirocin (Bactroban 2% Cream) 1 applicatio TOPICAL BID [facility] Last Admin: 07/01/18 09:56 Dose: 1 applicatio Ondansetron HCl (Zofran Inj) 4 mg IV.PUSH Q6H PRN PRN Reason: NAUSEA OR VOMITING Last Admin: 06/28/18 14:22 Dose: 4 mg Pantoprazole Sodium (Protonix) 40 mg PO DAILY [facility] Last Admin: 07/01/18 09:54 Dose: Not Given Phytonadione (Vitamin K Inj) 10 mg SQ DAILY [facility] Last Admin: 07/01/18 09:54 Dose: 10 mg Rifaximin (Xifaxan) 550 mg PO Q12HR [facility] Last Admin: 07/01/18 09:55 Dose: Not Given Senna/Docusate Sodium (Naomy-Colace) 1 tab PO BID [facility] Last Admin: 07/01/18 09:54 Dose: Not Given Sennosides (Senokot) 17.2 mg PO Q12H PRN PRN Reason: Moderate Constipation Sodium Chloride (Ns Flush) 2 ml IV.FLUSH BID [facility] Last Admin: 07/01/18 09:54 Dose: Not Given Sodium Chloride (Ns Flush) 2 ml IV.FLUSH PRN PRN PRN Reason: FLUSH AFTER USING IV ACCESS Last Admin: 06/01/18 21:23 Dose: 2 ml Tenofovir Disoproxil Fumarate (Viread) 300 mg PO DAILY [facility] Last Admin: 07/01/18 09:58 Dose: Not Given Thiamine HCl (Thiamine Inj) 100 mg IM DAILY [facility] Stop: 07/03/18 12:59 Last Admin: 07/01/18 09:57 Dose: 100 mg Zinc Sulfate (Zinc-220) 220 mg PO DAILY [facility] Last Admin: 07/01/18 09:55 Dose: Not Given Allergies Allergy/AdvReac Type Severity Reaction Status Date / Time No Known Allergies Allergy Verified 04/29/18 06:05 Home Medications Medication Instructions Recorded Confirmed Type ciprofloxacin HCl [Cipro] 500 mg PO DAILY 05/01/18 05/01/18 History cyclobenzaprine 10 mg PO TID PRN 05/01/18 05/01/18 History duloxetine 30 mg PO DAILY 05/01/18 05/01/18 History fludrocortisone 0.1 mg PO BID 05/01/18 05/01/18 History furosemide 40 mg PO BID 05/01/18 05/01/18 History lactulose 10 g PO TID 05/01/18 05/01/18 History magnesium oxide 400 mg PO DAILY 05/01/18 05/01/18 History ondansetron HCl 4 mg PO Q6-8H PRN 05/01/18 05/01/18 History pantoprazole 40 mg PO BID 05/01/18 05/01/18 History potassium chloride 20 meq PO DAILY 05/01/18 05/01/18 History spironolactone 50 mg PO BID 05/01/18 05/01/18 History tamsulosin 0.4 mg PO DAILY 05/01/18 05/01/18 History Physical Exam Vital signs: Vital Signs 07/01/18 00:00 07/01/18 04:00 07/01/18 08:00 Temperature 98.1 F 97.5 F L 98.2 F Pulse Rate 109 H 68 113 H Respiratory Rate 16 16 16 Blood Pressure 102/57 L 99/62 L Pulse Oximetry 96 98 97 07/01/18 10:19 07/01/18 12:00 07/01/18 16:00 Temperature 98.2 F 97.6 F Pulse Rate 101 H 105 H Respiratory Rate 14 14 Blood Pressure 82/58 L 87/60 L 76/54 L Pulse Oximetry 97 96 07/01/18 17:13 07/01/18 19:15 07/01/18 20:00 Temperature 99.6 F 99.6 F Pulse Rate 108 H 108 H Respiratory Rate 18 18 Blood Pressure 82/52 L 75/53 L 75/53 L Pulse Oximetry 95 95 Intake & Output 07/01/18 07/01/18 07/02/18 06:59 18:59 06:59 Intake Total 2049 1150 / 1150 50 / 50 Balance 2049 1150 / 1150 50 / 50 Weight 67.8 kg Intake: IV 2049 1150 / 1150 50 / 50 D5W Inj 1,000 ML @ 100 mls/hr 1999 / 1999 1000 / 1000 IV.CONT .Q10H NIRAJ Rx#:[id number] Flexbumin 25% Inj 50 ML @ 60 50 / 50 mls/hr IV.SIG TID NIRAJ Rx#: [id number] Flexbumin 25% Inj 100 ML @ 60 100 / 100 mls/hr IV.SIG ONCE ONE Rx#: [id number] Diflucan 100 mg Premix Bag 50 50 / 50 50 / 50 ML @ 50 mls/hr IV.SIG Q24H [facility] Rx#:[id number] Other: # Incontinent Voids 2 Date of Last Bowel Movement 07/01/18 07/01/18 # Incontinent Bowel Movements 3 6 Narrative: GENERAL: Thin chronically ill appearing male patient. Encephalopathy lethargic. Opens eyes to voice SKIN: Warm and dry. +Jaundiced. HEAD: Normocephalic. EYES: Pupils equal and round. Bilateral icterus ENT: No nasal bleeding or discharge. Dry mucus membranes. NECK: Trachea midline. CARDIOVASCULAR: Regular rate and rhythm. Systolic murmur auscultated. RESPIRATORY: No accessory muscle use. Air entry equal GASTROINTESTINAL: Abdomen soft, non-tender, nondistended. MUSCULOSKELETAL: Extremities without clubbing, cyanosis, or edema. NEUROLOGICAL: Patient is encephalopathy lethargic. Opens eyes do not follow commands intermittently gets agitated. No focal deficits - Urinary Catheter Management Condom Cath placed during this visit: no Septic Shock Reassessment Septic shock perfusion: reassessment completed Assessment and Plan - Assessment and Plan Plan: ASSESSMENT: Hemorrhagic shock GI bleed most likely variceal Anemia requiring transfusion Severe coagulopathy with elevated INR Thrombocytopenia Hyperfibrinogenemia Hepatic encephalopathy UTI Acute kidney injury, Possible hepatorenal syndrome. Hepatitis B, hepatitis C Alcohol dependence PLAN: NEURO: -Receiving Xifaxan and lactulose -Hold while n.p.o. 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 -Most likely variceal bleed, endoscopy once more stable -Pancytopenia and coagulopathy secondary to liver disease S/p treatment with Harvoni and recently tenofovir by GI with diagnosis of hepatitis B. The patient not compliant. Worked up in [place] for liver transplant 2017 but was not a candidate due to social issues and lack of support. Last EGD and colonoscopy in November 2016, portal hypertensive gastropathy : -Monitor renal function closely. Strict intake output ID: -Rocephin for GI prophylaxis -Currently on Diflucan for Shante UTI, urine cx 04/30 and 06/28 C Glabrata- change to Micafungin ENDO: -Electrolyte replacement PROPH: -Bilateral lower extremity SCDs. IV Protonix. Chemical DVT prophylaxis is contraindicated LINES: -Right subclavian central line placed 07/01/2018 CC time 45 min Patient is very critical life-threatening GI bleed with end-stage liver disease. Most likely variceal bleeding. Patient is also encephalopathy. Overall prognosis very poor palliative care is following Code Status: Full
--- NOTE | 2018-07-01 21:07 | P.PCN ---
Date of procedure: 07/01/18 Pre-op diagnosis: Hemorrhagic shock Post-op diagnosis: same Procedure: Right subclavian central line Central line checklist completed, timeout completed. I wore a surgical cap, mask with protective eyewear, full gown and sterile gloves throughout the procedure. Right shoulder region was prepped using chlorhexidine scrub and draped in sterile fashion. Anesthesia was achieved over the vein using 1% lidocaine. The introducer needle was inserted into the right subclavian vein. Venous blood was withdrawn. The syringe was removed and a guidewire was advanced into the introducer needle. A small incision was made at the skin surface with a scalpel and the introducer needle was exchanged for a dilator over the guidewire. After appropriate dilation was obtained, the dilator was exchanged over the wire for a triple lumen, 7F, antibiotic coated central venous catheter. The wire was removed and the catheter was secured with StatLock at 19 cm. A sterile central line dressing was placed over the catheter at the insertion site. The patient tolerated the procedure without any hemodynamic compromise. At time of procedure completion, all ports aspirated and flushed properly. Post-procedure chest x-ray is pending at this time. Anesthesia: local Surgeon: Jonathan Tomlin Estimated blood loss (mL): 1 Condition: critical Disposition: ICU
[2018-07-01] MEDS ORDERED: Octreotide Inj 50 MCG/ML Vial IV.PUSH PRN (21:30)
[2018-07-01] MEDS ORDERED: Pantoprazole Inj 80 MG in Sodium Chlor 0.9% Inj 35 ML IV.SIG ONE (21:30)
--- NOTE | 2018-07-01 21:30 | XR ---
EXAM DATE: 07/01/2018 9:25 PM EST AGE/SEX: 58 years / Male INDICATIONS: Status post central line placement. CLINICAL DATA: This is the patient's initial encounter. Patient reports that signs and symptoms have been present for 1 day and indicates a pain score of Nonresponsive. MEDICAL/SURGICAL HISTORY: Non-responsive. Non-responsive. COMPARISON: None. FINDINGS: A single AP view of the chest demonstrates the lungs to be symmetrically aerated without evidence of mass, infiltrate or effusion. There is a right subclavian central venous line in place with the tip n ear the junction of the superior vena cava and right atrium. There is no pneumothorax. The cardiomedi astinal contours are unremarkable. Osseous structures are intact. There are multiple overlying elect rocardiogram leads. CONCLUSION: Right subclavian central venous line with no pneumothorax. Electronically signed by: Vick Chew MD 07/01/2018 9:28 PM EST
[2018-07-01 21:32] LABS: Phosphorus 1.7 mg/dL (2.5-4.9)
[2018-07-01] MEDS: Multivitamin Inj 10 ML, Folic Acid Inj 1 MG in AA 4.25 %/D5W - Electrolytes 2,000 ML IV.SIG SCH (21:42)
[2018-07-01] MEDS: Escitalopram 10 MG Tablet PO SCH (21:47)
[2018-07-01 21:51] LABS: Magnesium 2.1 mg/dL (1.5-2.5)
[2018-07-01 21:51] LABS: ABG Base Excess -1.7 mmol/L (-2-2); ABG PCO2 36 mmHg (38-42); ABG PO2 104 mmHg (61-120)
[2018-07-01] MEDS ORDERED: Calcium Gluconate Inj 2 GM in Dextrose 5% in Water Inj 100 ML IV.SIG ONE ×2 (22:00)
[2018-07-01] MEDS: Octreotide Inj 500 MCG in Sodium Chlor 0.9% Inj 500 ML IV.CONT SCH (22:13)
[2018-07-01] MEDS ORDERED: Phytonadione Inj 10 MG/ML Vial IV.SIG ONE (22:30)
[2018-07-01] MEDS: Pantoprazole Inj 80 MG in Sodium Chlor 0.9% Inj 100 ML IV.CONT SCH (22:36)
[2018-07-02] MEDS: Dextrose 5% in Water Inj 1,000 ML IV.CONT SCH (02:34)
[2018-07-02 02:40] LABS: Mean Corpuscular HGB Conc 34.8 % (32.0-36.0); Mean Corpuscular Hemoglobin 37.3 pg (27.0-34.0); Mean Corpuscular Volume 107.1 fL (80.0-100.0); Platelet Count 47 th/mm3 (150-450); Red Blood Count 1.82 mil/mm3 (4.50-5.90); Red Cell Distribution Width 29.5 % (11.6-17.2); White Blood Count 7.3 th/mm3 (4.0-11.0)
[2018-07-02 02:45] LABS: Hematocrit 19.5 % (39.0-51.0); Hemoglobin 6.8 gm/dL (13.0-17.0)
[2018-07-02 02:55] LABS: INR 1.8 Ratio; Prothrombin Time 17.8 sec (9.8-11.6)
[2018-07-02 03:17] LABS: Alanine Aminotransferase 38 U/L (12-78); Albumin 2.2 g/dL (3.4-5.0); Alkaline Phosphatase 61 U/L (45-117); Anion Gap 9 meq/L (5-15); Aspartate Aminotransferase 34 U/L (15-37); Blood Urea Nitrogen 58 mg/dL (7-18); Calcium 9.9 mg/dL (8.5-10.1); Carbon Dioxide 25.2 meq/L (21.0-32.0); Chloride 116 meq/L (98-107); Glomerular Filtration Rate 42 mL/min (>89); Glucose,Random 132 mg/dL (74-106); Potassium 4.1 meq/L (3.5-5.1); Sodium 150 meq/L (136-145); Total Protein 4.7 g/dL (6.4-8.2)
--- NOTE | 2018-07-02 05:11 | XR ---
EXAM DATE: 07/02/2018 4:51 AM EST AGE/SEX: 58 years / Male INDICATIONS: Shortness of breath. CLINICAL DATA: This is the patient's subsequent encounter. Patient reports that signs and symptoms h ave been present for 2 days and indicates a pain score of Nonresponsive. MEDICAL/SURGICAL HISTORY: Non-responsive. Non-responsive. COMPARISON: [facility] [place], CHEST 1V SINGLE AP, 07/01/2018. . FINDINGS: Right central line in superior vena cava. Bilateral patchy airspace disease. No significant effusion. No pneumothorax. Heart size enlarged. CONCLUSION: Right central line in superior vena cava. Patchy bilateral airspace disease. No effusion or pneumotho rax. Electronically signed by: Floyd Magaña MD 07/02/2018 5:10 AM EST
[2018-07-02] MEDS ORDERED: Potassium Chloride 25 MEQ Effervescent Tablet PO PRN (05:29)
[2018-07-02] MEDS ORDERED: Magnesium Sulfate Inj 2 GM in Sodium Chlor 0.9% Inj 96 ML IV.SIG PRN (05:29)
[2018-07-02] MEDS ORDERED: Potassium Phosphate 500 MG Soluble Tablet PO PRN ×2 (05:29)
[2018-07-02] MEDS ORDERED: Potassium Chlor 40 mEq Premix 40 MEQ/100 ML PIGGYBACK IV.SIG PRN ×2 (05:29)
[2018-07-02] MEDS ORDERED: Potassium Chlor 20 mEq Premix 20 MEQ/100 ML PIGGYBACK IV.SIG PRN (05:29)
[2018-07-02] MEDS ORDERED: Magnesium Sulfate Inj 4 GM in Sodium Chlor 0.9% Inj 92 ML IV.SIG PRN (05:29)
[2018-07-02] MEDS ORDERED: Potassium Phosphate Inj 30 MMOL in Sodium Chlor 0.9% Inj 250 ML IV.SIG PRN (05:29)
[2018-07-02] MEDS ORDERED: Magnesium Oxide 400 MG Tablet PO PRN (05:29)
[2018-07-02] MEDS ORDERED: Sodium Phosphate Inj 30 MMOL in Sodium Chlor 0.9% Inj 250 ML IV.SIG PRN (05:29)
[2018-07-02] MEDS: Pantoprazole Inj 80 MG in Sodium Chlor 0.9% Inj 100 ML IV.CONT SCH ×2 (07:14→16:30)
[2018-07-02 08:14] LABS: Baso % (Auto) 0.1 % (0.0-2.0); Eos % (Auto) 0.3 % (0.0-4.0); Hematocrit 25.8 % (39.0-51.0); Hemoglobin 9.1 gm/dL (13.0-17.0); Lymph # (Auto) 0.7 th/mm3 (1.0-4.8); Lymph % (Auto) 7.6 % (9.0-44.0); Mean Corpuscular HGB Conc 35.4 % (32.0-36.0); Mean Corpuscular Hemoglobin 35.3 pg (27.0-34.0); Mean Corpuscular Volume 99.7 fL (80.0-100.0); Mean Platelet Volume 8.3 fL (7.0-11.0); Mono # (Auto) 0.2 th/mm3 (0.0-0.9); Mono % (Auto) 2.5 % (0.0-8.0); Neut # (Auto) 7.6 th/mm3 (1.8-7.7); Neut % (Auto) 89.5 % (16.0-70.0); Platelet Count 31 th/mm3 (150-450); Red Blood Count 2.58 mil/mm3 (4.50-5.90); Red Cell Distribution Width 27.7 % (11.6-17.2); White Blood Count 8.5 th/mm3 (4.0-11.0)
[2018-07-02 09:00] LABS: Dimorphic RBC Present; Lymphocytes 5 % (9-44); Monocytes 4 % (0-8); Tallied Nucleated RBC 2 (0-0)
[2018-07-02 09:01] LABS: Howell-Jolly Bodies Present; Pappenheimer Bodies Present; Platelet Morphology Normal (Normal)
[2018-07-02] MEDS: Albumin Human 25% Inj 50 ML IV.SIG SCH ×3 (09:08→18:00)
[2018-07-02] MEDS: Phytonadione Inj 10 MG/ML Vial SQ SCH (09:09)
[2018-07-02] MEDS: Sodium Chloride 0.9% 2 ML Flush BID IV.FLUSH SCH ×2 (09:29→22:32)
[2018-07-02] MEDS: Senna/Docusate Sodium 8.6/50 MG Tablet PO SCH ×2 (09:29→21:05)
[2018-07-02] MEDS: Folic Acid 1 MG Tablet PO SCH (09:29)
[2018-07-02] MEDS: rifAXIMin 550 MG Tablet PO SCH ×2 (09:30→21:07)
[2018-07-02] MEDS: Tenofovir 300 MG Tablet PO SCH (09:30)
--- NOTE | 2018-07-02 11:42 | P.PNPAL ---
Reason for Visit Reason for visit: a. To assist with evaluation and management of symptoms including: Encephalopathy, pain b. To assist medical decision maker(s) with: better understanding of current medical conditions; weighing benefits/burdens of medical treatment options; making medical treatment decisions. Subjective Subjective/Interval History: This 58-year-old patient who was transferred here to [facility] from [facility] in [place] on 04/29/18. There he had gone for evaluation of right-sided abdominal pain on 04/28. He also presented with constipation and dark urine. Abdominal CT indicative of portal hypertension changes, cirrhotic liver, and 3.5 cm staghorn calculus right kidney with possible mild duodenitis and cholelithiasis. + pancytopenia, + UTI - started on zosyn IV. He was transferred to [facility] due to staghorn calculus w concomitant infection, and requiring a urologist evaluation. also noted to have chronic hep C, cirrhosis, stable Neuropsychiatry prev consulted to assist with determining if patient has capacity to make medical decisions. He had previously been deemed capacitated to make medical decisions however also was recommended for support outside of the hospital upon discharge due to cognitive deficits. . Seen today to follow-up on comfort, goals with patient and/or decision makers. Dual visit yuliana Woody APRN. Moved emergently to ICU yesterday evening for large maroon stools, hypotension. Central line place by critical care. H&H low 6.6/19.5, transfused 2 U RBC, 2 U FFP, 2 pk platelet, and 1 pk cryo. Started on norepinephrine. suspected variceal bleed, started on octreotide drip, GI reconsulted. Also started on rocephin for poss SBP. Planned for possible EGD today. Bilirubin 19.4. PT/INR now corrected-- yesterday evening PT >180, INR > 18, today PT17.8/INR 1.8. Seen in room niece, step mother , step sister at bedside. He is lethargic/ obtunded minimally stirs to exam. They indicate Arley had to return to his family in [facility], but remain in close communication, he is trying to get rest of family here to see pt. On NC o2, resp even unlabored. jaundiced. Gen edema. + serous weeping drainage from arms. +edema BLE. Call to brother Arley ([facility]) , review yesterday events, treatments given, transfusions etc,. Review current assessment and recent diagnostics. Review expected trajectory as we have discussed in prev days, that pt will remain at risk for ongoing sequelae and decline 2/2 to end stage liver disease process, poor prognosis for survival. Arley endorses goals remain aggressive, continue available treatment to keep pt alive-- additional family to be coming in town in the coming days to see pt, may consider de-escalation once all family has seen him ( most of the family has not been aware pt in hospital/pt has been estranged) Arley also informs me that [facility] facility will not be allowing pt sister Sruthi schroeder to see him. he has palliative contact information. Discussed with medical attending , nurse. Advance Directives Advance Directives Date on File: 05/07/18 Health Care Surrogate Name and Number: Names brother Arley BennettclydeZoe Valadez Objective Vital Signs: Vital Signs 07/01/18 12:00 07/01/18 16:00 07/01/18 17:13 Temperature 98.2 F 97.6 F Pulse Rate 101 H 105 H Respiratory Rate 14 14 Blood Pressure 87/60 L 76/54 L 82/52 L Pulse Oximetry 97 96 07/01/18 19:15 07/01/18 20:00 07/01/18 20:30 Temperature 99.6 F 99.6 F Pulse Rate 108 H 108 H 109 H Respiratory Rate 18 18 16 Blood Pressure 75/53 L 75/53 L Pulse Oximetry 95 95 07/01/18 20:45 07/01/18 21:01 07/01/18 21:03 Temperature Pulse Rate 102 H 103 H 103 H Respiratory Rate 19 16 15 Blood Pressure 79/51 L 92/56 L 92/50 L Pulse Oximetry 90 L 96 97 07/01/18 21:05 07/01/18 21:07 07/01/18 21:09 Temperature Pulse Rate 105 H 108 H 107 H Respiratory Rate 17 16 15 Blood Pressure 94/51 L 96/49 L 100/50 L Pulse Oximetry 96 96 95 07/01/18 21:11 07/01/18 21:15 07/01/18 21:30 Temperature Pulse Rate 106 H 106 H 105 H Respiratory Rate 28 H 18 15 Blood Pressure 99/52 L 102/55 L 103/56 L Pulse Oximetry 95 100 100 07/01/18 21:45 07/01/18 21:53 07/01/18 21:54 Temperature 97.4 F L Pulse Rate 103 H 104 H Respiratory Rate 13 12 Blood Pressure 101/57 L 101/57 L Pulse Oximetry 100 100 96 07/01/18 21:58 07/01/18 22:00 07/01/18 22:15 Temperature 97.4 F L 97.4 F L Pulse Rate 102 H 103 H 103 H Respiratory Rate 19 20 19 Blood Pressure 101/57 L 99/53 L 99/56 L Pulse Oximetry 100 100 99 07/01/18 22:18 07/01/18 22:21 07/01/18 22:30 Temperature 97.4 F L 97.4 F L Pulse Rate 117 H 105 H 108 H Respiratory Rate 15 15 15 Blood Pressure 99/56 L 99/56 L 107/71 Pulse Oximetry 100 99 98 07/01/18 22:40 07/01/18 22:45 07/01/18 23:00 Temperature 97.4 F L Pulse Rate 109 H 114 H 107 H Respiratory Rate 19 28 H 15 Blood Pressure 107/71 112/65 110/58 L Pulse Oximetry 98 97 100 07/01/18 23:03 07/01/18 23:15 07/01/18 23:30 Temperature 97.4 F L Pulse Rate 107 H 102 H 96 H Respiratory Rate 15 17 17 Blood Pressure 110/58 L 137/58 L 118/58 L Pulse Oximetry 99 100 100 07/01/18 23:35 07/01/18 23:45 07/01/18 23:59 Temperature 98.3 F 98.3 F Pulse Rate 96 H 93 H 87 Respiratory Rate 18 14 16 Blood Pressure 118/58 L 115/61 115/61 Pulse Oximetry 98 100 100 07/02/18 00:00 07/02/18 00:15 07/02/18 00:30 Temperature 98.4 F Pulse Rate 89 91 H 92 H Respiratory Rate 16 15 15 Blood Pressure 118/66 133/61 126/60 Pulse Oximetry 99 98 99 07/02/18 00:45 07/02/18 01:00 07/02/18 01:15 Temperature Pulse Rate 97 H 94 H 90 Respiratory Rate 14 14 13 Blood Pressure 140/61 138/64 119/64 Pulse Oximetry 97 97 98 07/02/18 01:30 07/02/18 01:45 07/02/18 02:00 Temperature Pulse Rate 89 87 90 Respiratory Rate 12 14 15 Blood Pressure 118/63 109/63 111/63 Pulse Oximetry 97 98 98 07/02/18 02:15 07/02/18 02:30 07/02/18 02:45 Temperature Pulse Rate 90 97 H 100 H Respiratory Rate 13 14 15 Blood Pressure 116/68 103/57 L 111/53 L Pulse Oximetry 98 98 96 07/02/18 03:00 07/02/18 03:15 07/02/18 03:30 Temperature Pulse Rate 99 H 99 H 105 H Respiratory Rate 14 16 15 Blood Pressure 88/54 L 107/55 L 104/59 L Pulse Oximetry 97 96 93 L 07/02/18 03:43 07/02/18 03:45 07/02/18 03:56 Temperature 99.3 F Pulse Rate 110 H 108 H 106 H Respiratory Rate 15 15 13 Blood Pressure 104/59 L 107/61 119/64 Pulse Oximetry 95 95 97 07/02/18 03:58 07/02/18 03:59 07/02/18 04:00 Temperature 99.2 F Pulse Rate 104 H 102 H 100 H Respiratory Rate 13 12 10 L Blood Pressure 117/67 107/60 116/66 Pulse Oximetry 97 97 97 07/02/18 04:15 07/02/18 04:30 07/02/18 04:45 Temperature Pulse Rate 97 H 95 H 93 H Respiratory Rate 11 L 11 L 10 L Blood Pressure 117/65 129/72 116/65 Pulse Oximetry 97 98 99 07/02/18 04:49 07/02/18 05:00 07/02/18 05:06 Temperature 99.2 F Pulse Rate 93 H 91 H 90 Respiratory Rate 12 9 L 11 L Blood Pressure 123/61 114/59 L 114/59 L Pulse Oximetry 98 99 99 07/02/18 05:15 07/02/18 05:30 07/02/18 05:45 Temperature Pulse Rate 89 90 89 Respiratory Rate 10 L 11 L 12 Blood Pressure 111/61 111/65 121/65 Pulse Oximetry 99 100 99 07/02/18 06:00 07/02/18 06:15 07/02/18 06:30 Temperature Pulse Rate 97 H 92 H 91 H Respiratory Rate 13 10 L 11 L Blood Pressure 115/60 111/53 L 110/53 L Pulse Oximetry 98 99 99 07/02/18 06:45 07/02/18 07:00 07/02/18 07:15 Temperature Pulse Rate 91 H 92 H 93 H Respiratory Rate 10 L 10 L 10 L Blood Pressure 101/62 113/58 L 103/58 L Pulse Oximetry 100 100 100 07/02/18 07:30 07/02/18 07:45 07/02/18 08:00 Temperature 98.5 F Pulse Rate 91 H 90 97 H Respiratory Rate 12 12 12 Blood Pressure 98/55 L 106/59 L 106/54 L Pulse Oximetry 100 100 100 07/02/18 08:15 07/02/18 08:30 07/02/18 08:45 Temperature Pulse Rate 93 H 90 91 H Respiratory Rate 11 L 11 L 10 L Blood Pressure 109/56 L 104/55 L 106/56 L Pulse Oximetry 99 99 99 07/02/18 09:00 07/02/18 09:15 07/02/18 09:30 Temperature Pulse Rate 92 H 91 H 92 H Respiratory Rate 11 L 10 L 11 L Blood Pressure 107/55 L 104/59 L 104/59 L Pulse Oximetry 99 99 98 07/02/18 09:45 07/02/18 10:00 07/02/18 10:15 Temperature Pulse Rate 88 88 87 Respiratory Rate 13 13 13 Blood Pressure 102/59 L 97/52 L 104/59 L Pulse Oximetry 99 99 99 07/02/18 10:30 Temperature Pulse Rate 87 Respiratory Rate 13 Blood Pressure 104/56 L Pulse Oximetry 99 Intake & Output 07/01/18 07/02/18 07/02/18 18:59 06:59 18:59 Intake Total 1150 / 1150 6161 / 6161 100 / 100 Output Total 325 / 325 Balance 1150 / 1150 5836 / 5836 100 / 100 Weight 76.2 kg Intake: IV 1150 / 1150 2706 / 2706 100 / 100 D5W Inj 1,000 ML @ 100 mls/hr 1000 / 1000 1000 / 1000 IV.CONT .Q10H [facility] Rx#:[id number] Protonix Inj 80 MG In NS Inj 100 / 100 100 ML @ 10 mls/hr IV.CONT Q10H [facility] Rx#:[id number] Flexbumin 25% Inj 50 ML @ 60 50 / 50 mls/hr IV.SIG TID [facility] Rx#: [id number] Flexbumin 25% Inj 100 ML @ 60 100 / 100 mls/hr IV.SIG ONCE ONE Rx#: [id number] Calcium Gluconate Inj 2 GM In 120 / 120 D5W Inj 100 ML @ 120 mls/hr IV. SIG ONCE ONE Rx#:[id number] Diflucan 100 mg Premix Bag 50 50 / 50 ML @ 50 mls/hr IV.SIG Q24H [facility] Rx#:[id number] Mycamine Inj 100 MG In NS Inj 100 / 100 100 ML @ 100 mls/hr IV.SIG Q24H [facility] Rx#:[id number] Protonix Inj 80 MG In NS Inj 35 35 / 35 ML @ 420 mls/hr IV.SIG BOLUS ONE Rx#:[id number] Vitamin K Inj 10 MG In D5W Inj 51 / 51 50 ML @ 102 mls/hr IV.SIG ONCE ONE Rx#:[id number] NS Inj 1,000 ML @ 999 mls/hr IV 1000 / 1000 .SIG BOLUS ONE Rx#:[id number] NS Inj 250 ML @ 15 mls/hr IV. 250 / 250 SIG ONCE [facility] Rx#:[id number] Rocephin Inj 1,000 MG In NS Inj 100 / 100 100 ML @ 200 mls/hr IV.SIG Q24H [facility] Rx#:[id number] Intake (Blood Product) Amt 3455 / 3455 Plasma Thawed 5 Day Acda Unit 224 / 224 [id number] Plasma Thawed 5 Day Cp2d Unit 373 / 373 [id number] Plasma Thawed 5 Day Cp2d Unit 294 / 294 [id number] Plasma Thawed 5 Day Cp2d Unit 266 / 266 [id number] Plt Pheresis B Leukored Pas 280 / 280 Unit [id number] Plt Pheresis B Leukored Pas 194 / 194 Unit [id number] Pre-Pooled Cryo Thawed 10units 224 / 224 Unit [id number] Rbc As-3 Leukoreduced Unit 400 / 400 [id number] Rbc As-3 Leukoreduced Unit 400 / 400 [id number] Rbc As-3 Leukoreduced Unit 400 / 400 [id number] Rbc As-3 Leukoreduced Unit 400 / 400 [id number] Output: Urine Amount (Catheter) 325 / 325 Indwelling Urethral Catheter 325 / 325 Other: Date of Last Bowel Movement 07/01/18 07/01/18 07/01/18 # Incontinent Bowel Movements 3 6 Physical Exam: CONSTITUTIONAL/GENERAL: This is a chronically ill appearing male, obtunded ,weak , nonverbal, + temporal wasting TUBES/LINES/DRAINS: PIV UE, central line, drake catheter SKIN: No rashes, or lesions. +Ecchymoses & small petechiae scattered over body. Fading small ecchymosis above left eyebrow. jaundice. Skin warm/dry. EYES: does not spont open eyes. + scleral icterus. No injection or drainage. Fundi not examined. ENT: Nose without bleeding or purulent drainage. Does not open mouth for oropharynx exam. CARDIOVASCULAR: Regular rate and rhythm , 3/6 systolic murmur . No JVD. Peripheral pulses symmetric. Chronic vascular changes to skin bilateral lower legs, edema BLE RESPIRATORY/CHEST: Symmetric, unlabored respirations. irregular and shallow intermittently. On NC . Clear to auscultation, decreased air movement throughout. GASTROINTESTINAL: Abdomen slightly firm, seems to tense w palpation. nondistended/slight splenomegaly .no ascites. Bowel sounds hypoactive. MUSCULOSKELETAL: Extremities without clubbing, cyanosis. No joint tenderness or effusion noted. chronic vascular discoloration visible to bilateral lower legs , edema BLE NEUROLOGICAL: Very lethargic/obtunded. Does not respond to my exam. No eye opening. Does not follow any commands. Does not verbalize. Minimal weak movement localizing to touch on extremities. PSYCHIATRIC: Too lethargic to assess . Diagnostic Tests Laboratory: Laboratory Results - last 72 hr 06/29/18 06/29/18 06/29/18 10:16 14:38 14:38 WBC RBC Hgb Hct MCV MCH MCHC RDW Plt Count MPV Prelim Diff (Auto) Neut % (Auto) Lymph % (Auto) [place] % (Auto) Eos % (Auto) Baso % (Auto) Neut # (Auto) Lymph # (Auto) [place] # (Auto) Eos # (Auto) Baso # (Auto) WBC Differential . Diff Scan Auto diff confirmed Seg Neuts % (Manual) Band Neuts % (Manual) Lymphocytes % (Manual) Monocytes % (Manual) Metamyelocytes % (Man) Abs Neuts (Manual) Nucleated RBCs/100 WBC Differential Comment Toxic Granulation Platelet Estimate Low L Platelet Morphology Normal Dimorphic RBCs Pappenheimer Bodies [employer] Bodies PT INR Fibrinogen Puncture Site Patient Temperature O2 Saturation ABG pH ABG pCO2 ABG pO2 ABG HCO3 ABG O2 Content ABG Base Excess ABG Methemoglobin Kody Test Hemoglobin Carboxyhemoglobin O2 Delivery Device Liter Flow Critical Value Sodium Potassium 4.5 D Chloride Carbon Dioxide Anion Gap BUN Creatinine Estimated GFR POC Glucose Random Glucose 126 H Lactic Acid Calcium Phosphorus Magnesium Total Bilirubin AST ALT Alkaline Phosphatase Ammonia Total Protein Albumin Triglycerides Nasal Screen MRSA (PCR) Blood Type Antibody Screen Intervention [employer] Blood Bank Comment Bld Prod Order Comment 06/29/18 06/30/18 06/30/18 23:01 05:47 06:31 WBC RBC Hgb Hct MCV MCH MCHC RDW Plt Count MPV Prelim Diff (Auto) Neut % (Auto) Lymph % (Auto) [place] % (Auto) Eos % (Auto) Baso % (Auto) Neut # (Auto) Lymph # (Auto) [place] # (Auto) Eos # (Auto) Baso # (Auto) WBC Differential Diff Scan Seg Neuts % (Manual) Band Neuts % (Manual) Lymphocytes % (Manual) Monocytes % (Manual) Metamyelocytes % (Man) Abs Neuts (Manual) Nucleated RBCs/100 WBC Differential Comment Toxic Granulation Platelet Estimate Platelet Morphology Dimorphic RBCs Pappenheimer Bodies [employer] Bodies PT INR Fibrinogen Puncture Site Patient Temperature O2 Saturation ABG pH ABG pCO2 ABG pO2 ABG HCO3 ABG O2 Content ABG Base Excess ABG Methemoglobin Kody Test Hemoglobin Carboxyhemoglobin O2 Delivery Device Liter Flow Critical Value Sodium 155 H Potassium 3.7 D Chloride 125 H Carbon Dioxide 27.2 Anion Gap 3 L BUN 51 H Creatinine 1.30 Estimated GFR 57 L POC Glucose 139 H 108 Random Glucose 104 Lactic Acid Calcium 9.3 Phosphorus Magnesium Total Bilirubin 15.8 H AST 43 H ALT 47 Alkaline Phosphatase 58 Ammonia Total Protein 4.8 L D Albumin 1.7 L Triglycerides Nasal Screen MRSA (PCR) Blood Type Antibody Screen [id number] Gel [employer]tch Blood Bank Comment Bld Prod Order Comment 06/30/18 06/30/1818 08:08 10:28 10:38 WBC 3.5 L RBC 1.95 L Hgb 8.3 L Hct 24.6 L MCV 126.0 H MCH 42.7 H MCHC 33.9 RDW 22.9 H Plt Count 26 L MPV 10.0 Prelim Diff (Auto) Slide review pending Neut % (Auto) 82.2 H Lymph % (Auto) 10.7 F[place]ardo % (Auto) 6.8 Eos % (Auto) 0.2 Baso % (Auto) 0.1 Neut # (Auto) 2.8 Lymph # (Auto) 0.4 L [place] # (Auto) 0.2 Eos # (Auto) 0.0 Baso # (Auto) 0.0 WBC Differential Manual diff final Diff Scan Seg Neuts % (Manual) 74 H Band Neuts % (Manual) 13 H Lymphocytes % (Manual) 5 L Monocytes % (Manual) 6 Metamyelocytes % (Man) 2 H Abs Neuts (Manual) 3.1 Nucleated RBCs/100 WBC 2 H Differential Comment . Toxic Granulation 2+ H Platelet Estimate Low L Platelet Morphology Normal Dimorphic RBCs Present H Pappenheimer Bodies [employer] Bodies PT 43.0 H INR 4.3 Fibrinogen Puncture Site Patient Temperature O2 Saturation ABG pH ABG pCO2 ABG pO2 ABG HCO3 ABG O2 Content ABG Base Excess ABG Methemoglobin Kody Test Hemoglobin Carboxyhemoglobin O2 Delivery Device Liter Flow Critical Value Sodium Potassium Chloride Carbon Dioxide Anion Gap BUN Creatinine Estimated GFR POC Glucose 125 H Random Glucose Lactic Acid Calcium Phosphorus Magnesium Total Bilirubin AST ALT Alkaline Phosphatase Ammonia Total Protein Albumin Triglycerides Nasal Screen MRSA (PCR) Blood Type Antibody Screen MTS Gel Crossmatch Blood Bank Comment Bld Prod Order Comment 06/30/18 06/30/18 07/01/18 18:34 23:25 07:30 WBC 6.1 D RBC 1.87 L Hgb 8.0 L Hct 24.2 L MCV 129.6 H D MCH 42.9 H MCHC 33.1 RDW 22.7 H Plt Count 29 L MPV 9.6 Prelim Diff (Auto) Slide review pending Neut % (Auto) 87.2 H Lymph % (Auto) 9.0 Fajardo % (Auto) 3.5 Eos % (Auto) 0.1 Baso % (Auto) 0.2 Neut # (Auto) 5.3 Lymph # (Auto) 0.5 L [place] # (Auto) 0.2 Eos # (Auto) 0.0 Baso # (Auto) 0.0 WBC Differential Manual diff final Diff Scan Seg Neuts % (Manual) 85 H Band Neuts % (Manual) 11 H Lymphocytes % (Manual) 2 L Monocytes % (Manual) 2 Metamyelocytes % (Man) Abs Neuts (Manual) 5.9 Nucleated RBCs/100 WBC 3 H Differential Comment . Toxic Granulation Platelet Estimate Low L Platelet Morphology Normal Dimorphic RBCs Pappenheimer Bodies Present H [employer] Bodies Present H PT INR Fibrinogen Puncture Site Patient Temperature O2 Saturation ABG pH ABG pCO2 ABG pO2 ABG HCO3 ABG O2 Content ABG Base Excess ABG Methemoglobin Kody Test Hemoglobin Carboxyhemoglobin O2 Delivery Device Liter Flow Critical Value Sodium Potassium Chloride Carbon Dioxide Anion Gap BUN Creatinine Estimated GFR POC Glucose 126 H 137 H Random Glucose Lactic Acid Calcium Phosphorus Magnesium Total Bilirubin AST ALT Alkaline Phosphatase Ammonia Total Protein Albumin Triglycerides Nasal Screen MRSA (PCR) Blood Type Antibody Screen MTS Gel Crossmatch Blood Bank Comment Bld Prod Order Comment 07/01/18 07/01/18 07/01/18 07:30 07:30 10:02 WBC RBC Hgb Hct MCV MCH MCHC RDW Plt Count MPV Prelim Diff (Auto) Neut % (Auto) Lymph % (Auto) [place] % (Auto) Eos % (Auto) Baso % (Auto) Neut # (Auto) Lymph # (Auto) [place] # (Auto) Eos # (Auto) Baso # (Auto) WBC Differential Diff Scan Seg Neuts % (Manual) Band Neuts % (Manual) Lymphocytes % (Manual) Monocytes % (Manual) Metamyelocytes % (Man) Abs Neuts (Manual) Nucleated RBCs/100 WBC Differential Comment Toxic Granulation Platelet Estimate Platelet Morphology Dimorphic RBCs Pappenheimer Bodies [employer] Bodies PT 46.5 H INR 4.6 Fibrinogen Puncture Site Patient Temperature O2 Saturation ABG pH ABG pCO2 ABG pO2 ABG HCO3 ABG O2 Content ABG Base Excess ABG Methemoglobin Kody Test Hemoglobin Carboxyhemoglobin O2 Delivery Device Liter Flow Critical Value Sodium 155 H Potassium 4.3 Chloride 123 H Carbon Dioxide 25.4 Anion Gap 7 BUN 53 H Creatinine 1.39 H Estimated GFR 53 L POC Glucose 126 H Random Glucose 125 H Lactic Acid Calcium 9.3 Phosphorus Magnesium Total Bilirubin 17.1 H AST 47 H ALT 50 Alkaline Phosphatase 57 Ammonia Total Protein 4.7 L Albumin 1.5 L Triglycerides Nasal Screen MRSA (PCR) Blood Type Antibody Screen MTS Gel Crossmatch Blood Bank Comment Bld Prod Order Comment 07/01/18 07/01/18 07/01/18 14:07 17:21 18:00 WBC RBC Hgb Hct MCV MCH MCHC RDW Plt Count MPV Prelim Diff (Auto) Neut % (Auto) Lymph % (Auto) [place] % (Auto) Eos % (Auto) Baso % (Auto) Neut # (Auto) Lymph # (Auto) [place] # (Auto) Eos # (Auto) Baso # (Auto) WBC Differential Diff Scan Seg Neuts % (Manual) Band Neuts % (Manual) Lymphocytes % (Manual) Monocytes % (Manual) Metamyelocytes % (Man) Abs Neuts (Manual) Nucleated RBCs/100 WBC Differential Comment Toxic Granulation Platelet Estimate Platelet Morphology Dimorphic RBCs Pappenheimer Bodies [employer] Bodies PT INR Fibrinogen Puncture Site Patient Temperature O2 Saturation ABG pH ABG pCO2 ABG pO2 ABG HCO3 ABG O2 Content ABG Base Excess ABG Methemoglobin Kody Test Hemoglobin Carboxyhemoglobin O2 Delivery Device Liter Flow Critical Value Sodium 154 H Potassium 4.6 Chloride 124 H Carbon Dioxide 24.6 Anion Gap 5 BUN 57 H Creatinine 1.66 H Estimated GFR 43 L POC Glucose 110 99 Random Glucose 109 H Lactic Acid Calcium 9.6 Phosphorus 1.5 L Magnesium 2.1 Total Bilirubin 20.0 H AST 41 H ALT 45 Alkaline Phosphatase 47 Ammonia Total Protein 4.4 L Albumin 1.7 L Triglycerides 34 L Nasal Screen MRSA (PCR) Blood Type Antibody Screen MTS Gel Crossmatch Blood Bank Comment Bld Prod Order Comment 07/01/18 07/01/18 07/01/18 18:00 20:30 20:45 WBC RBC Hgb 6.6 L* Hct 20.9 L* MCV MCH MCHC RDW Plt Count MPV Prelim Diff (Auto) Neut % (Auto) Lymph % (Auto) [place] % (Auto) Eos % (Auto) Baso % (Auto) Neut # (Auto) Lymph # (Auto) [place] # (Auto) Eos # (Auto) Baso # (Auto) WBC Differential Diff Scan Seg Neuts % (Manual) Band Neuts % (Manual) Lymphocytes % (Manual) Monocytes % (Manual) Metamyelocytes % (Man) Abs Neuts (Manual) Nucleated RBCs/100 WBC Differential Comment Toxic Granulation Platelet Estimate Platelet Morphology Dimorphic RBCs Pappenheimer Bodies [employer] Bodies PT Greater than 180.0 H D INR Greater than 18.2 H* Fibrinogen Puncture Site Patient Temperature O2 Saturation ABG pH ABG pCO2 ABG pO2 ABG HCO3 ABG O2 Content ABG Base Excess ABG Methemoglobin Kody Test Hemoglobin Carboxyhemoglobin O2 Delivery Device Liter Flow Critical Value Sodium Potassium Chloride Carbon Dioxide Anion Gap BUN Creatinine Estimated GFR POC Glucose Random Glucose Lactic Acid Calcium Phosphorus Magnesium Total Bilirubin AST ALT Alkaline Phosphatase Ammonia Total Protein Albumin Triglycerides Nasal Screen MRSA (PCR) Mrsa detected Blood Type Antibody Screen MTS Gel [employer] Blood Bank Comment Bld Prod Order Comment 07/01/18 07/01/18 07/01/18 20:45 20:45 20:45 WBC RBC Hgb Hct MCV MCH MCHC RDW Plt Count MPV Prelim Diff (Auto) Neut % (Auto) Lymph % (Auto) [place] % (Auto) Eos % (Auto) Baso % (Auto) Neut # (Auto) Lymph # (Auto) [place] # (Auto) Eos # (Auto) Baso # (Auto) WBC Differential Diff Scan Seg Neuts % (Manual) Band Neuts % (Manual) Lymphocytes % (Manual) Monocytes % (Manual) Metamyelocytes % (Man) Abs Neuts (Manual) Nucleated RBCs/100 WBC Differential Comment Toxic Granulation Platelet Estimate Platelet Morphology Dimorphic RBCs Pappenheimer Bodies [employer] Bodies PT INR Fibrinogen Puncture Site Patient Temperature O2 Saturation ABG pH ABG pCO2 ABG pO2 ABG HCO3 ABG O2 Content ABG Base Excess ABG Methemoglobin Kody Test Hemoglobin Carboxyhemoglobin O2 Delivery Device Liter Flow Critical Value Sodium Potassium Chloride Carbon Dioxide Anion Gap BUN Creatinine Estimated GFR POC Glucose Random Glucose Lactic Acid Calcium Phosphorus 1.7 L Magnesium 2.1 Total Bilirubin AST ALT Alkaline Phosphatase Ammonia 26 Total Protein Albumin Triglycerides Nasal Screen MRSA (PCR) Blood Type O Negative Antibody Screen Negative [id number] Gel [employer]tch Blood Bank Comment Bld Prod Order Comment 07/01/18 07/01/18 07/01/18 20:45 20:45 21:28 WBC RBC Hgb Hct MCV MCH MCHC RDW Plt Count MPV Prelim Diff (Auto) Neut % (Auto) Lymph % (Auto) [place] % (Auto) Eos % (Auto) Baso % (Auto) Neut # (Auto) Lymph # (Auto) [place] # (Auto) Eos # (Auto) Baso # (Auto) WBC Differential Diff Scan Seg Neuts % (Manual) Band Neuts % (Manual) Lymphocytes % (Manual) Monocytes % (Manual) Metamyelocytes % (Man) Abs Neuts (Manual) Nucleated RBCs/100 WBC Differential Comment Toxic Granulation Platelet Estimate Platelet Morphology Dimorphic RBCs Pappenheimer Bodies [employer] Bodies PT INR Fibrinogen Puncture Site Right radial Patient Temperature 98.6 O2 Saturation 96 ABG pH 7.41 ABG pCO2 36 L ABG pO2 104 ABG HCO3 22 ABG O2 Content 6.7 L ABG Base Excess -1.7 ABG Methemoglobin 0.0 Kody Test Present Hemoglobin 4.8 L* Carboxyhemoglobin 3.0 O2 Delivery Device Nasal cannula Liter Flow 1.50 Critical Value Yes Sodium Potassium Chloride Carbon Dioxide Anion Gap BUN Creatinine Estimated GFR POC Glucose Random Glucose Lactic Acid Calcium Phosphorus Magnesium Total Bilirubin AST ALT Alkaline Phosphatase Ammonia Total Protein Albumin Triglycerides Nasal Screen MRSA (PCR) Blood Type Antibody Screen MTS Gel Crossmatch See Detail Blood Bank Comment Bld Prod Order Comment 07/01/18 07/01/18 07/02/18 21:30 22:06 02:30 WBC 7.3 RBC 1.82 L Hgb 6.8 L* Hct 19.5 L* MCV 107.1 H D MCH 37.3 H MCHC 34.8 RDW 29.5 H D Plt Count 47 L D MPV 8.0 Prelim Diff (Auto) Neut % (Auto) Lymph % (Auto) [place] % (Auto) Eos % (Auto) Baso % (Auto) Neut # (Auto) Lymph # (Auto) [place] # (Auto) Eos # (Auto) Baso # (Auto) WBC Differential Diff Scan Seg Neuts % (Manual) Band Neuts % (Manual) Lymphocytes % (Manual) Monocytes % (Manual) Metamyelocytes % (Man) Abs Neuts (Manual) Nucleated RBCs/100 WBC Differential Comment Toxic Granulation Platelet Estimate Platelet Morphology Dimorphic RBCs Pappenheimer Bodies [employer] Bodies PT INR Fibrinogen Puncture Site Patient Temperature O2 Saturation ABG pH ABG pCO2 ABG pO2 ABG HCO3 ABG O2 Content ABG Base Excess ABG Methemoglobin Kody Test Hemoglobin Carboxyhemoglobin O2 Delivery Device Liter Flow Critical Value Sodium Potassium Chloride Carbon Dioxide Anion Gap BUN Creatinine Estimated GFR POC Glucose Random Glucose Lactic Acid 3.9 H Calcium Phosphorus Magnesium Total Bilirubin AST ALT Alkaline Phosphatase Ammonia Total Protein Albumin Triglycerides Nasal Screen MRSA (PCR) Blood Type Antibody Screen MTS Gel Crossmatch Blood Bank Comment Bld Prod Order Comment 07/02/18 07/02/18 07/02/18 02:30 02:30 02:58 WBC RBC Hgb Hct MCV MCH MCHC RDW Plt Count MPV Prelim Diff (Auto) Neut % (Auto) Lymph % (Auto) Fajardo % (Auto) Eos % (Auto) Baso % (Auto) Neut # (Auto) Lymph # (Auto) Fajardo # (Auto) Eos # (Auto) Baso # (Auto) WBC Differential Diff Scan Seg Neuts % (Manual) Band Neuts % (Manual) Lymphocytes % (Manual) Monocytes % (Manual) Metamyelocytes % (Man) Abs Neuts (Manual) Nucleated RBCs/100 WBC Differential Comment Toxic Granulation Platelet Estimate Platelet Morphology Dimorphic RBCs Pappenheimer Bodies [employer] Bodies PT 17.8 H D INR 1.8 Fibrinogen 125 L Puncture Site Patient Temperature O2 Saturation ABG pH ABG pCO2 ABG pO2 ABG HCO3 ABG O2 Content ABG Base Excess ABG Methemoglobin Kody Test Hemoglobin Carboxyhemoglobin O2 Delivery Device Liter Flow Critical Value Sodium 150 H Potassium 4.1 Chloride 116 H D Carbon Dioxide 25.2 Anion Gap 9 BUN 58 H Creatinine 1.68 H Estimated GFR 42 L POC Glucose Random Glucose 132 H Lactic Acid Calcium 9.9 Phosphorus Magnesium 2.0 Total Bilirubin 19.4 H AST 34 ALT 38 Alkaline Phosphatase 61 Ammonia Total Protein 4.7 L Albumin 2.2 L Triglycerides Nasal Screen MRSA (PCR) Blood Type Antibody Screen MTS Gel Crossmatch See Detail Blood Bank Comment Bld Prod Order Comment 07/02/18 07/02/18 07:56 10:33 WBC 8.5 RBC 2.58 L Hgb 9.1 L D Hct 25.8 L MCV 99.7 D MCH 35.3 H MCHC 35.4 RDW 27.7 H Plt Count 31 L D MPV 8.3 Prelim Diff (Auto) Slide review pending Neut % (Auto) 89.5 H Lymph % (Auto) 7.6 L Fajardo % (Auto) 2.5 Eos % (Auto) 0.3 Baso % (Auto) 0.1 Neut # (Auto) 7.6 Lymph # (Auto) 0.7 L Fajardo # (Auto) 0.2 Eos # (Auto) 0.0 Baso # (Auto) 0.0 WBC Differential Manual diff final Diff Scan Seg Neuts % (Manual) 89 H Band Neuts % (Manual) 2 Lymphocytes % (Manual) 5 L Monocytes % (Manual) 4 Metamyelocytes % (Man) Abs Neuts (Manual) 7.7 Nucleated RBCs/100 WBC 2 H Differential Comment . Toxic Granulation Platelet Estimate Low L Platelet Morphology Normal Dimorphic RBCs Present H Pappenheimer Bodies Present H [employer] Bodies Present H PT INR Fibrinogen Puncture Site Patient Temperature O2 Saturation ABG pH ABG pCO2 ABG pO2 ABG HCO3 ABG O2 Content ABG Base Excess ABG Methemoglobin Kody Test Hemoglobin Carboxyhemoglobin O2 Delivery Device Liter Flow Critical Value Sodium Potassium Chloride Carbon Dioxide Anion Gap BUN Creatinine Estimated GFR POC Glucose 110 Random Glucose Lactic Acid Calcium Phosphorus Magnesium Total Bilirubin AST ALT Alkaline Phosphatase Ammonia Total Protein Albumin Triglycerides Nasal Screen MRSA (PCR) Blood Type Antibody Screen MTS Gel Crossmatch Blood Bank Comment Bld Prod Order Comment Result Diagrams: 07/02/18 11:40 07/02/18 02:30 Microbiology: Microbiology 07/01/18 18:00 Aerobic Blood Culture - Preliminary Blood - Peripheral No growth in 1 day Anaerobic Blood Culture - Preliminary No growth in 1 day 07/01/18 17:50 Aerobic Blood Culture - Preliminary Blood - Peripheral No growth in 1 day Anaerobic Blood Culture - Preliminary No growth in 1 day 07/01/18 14:28 Stool Occult Blood (SHARI) - Final Stool Hemoccult positive 06/28/18 00:00 Urine Culture - Final Catheterized Urine Shante glabrata Imaging: Impressions Chest X-Ray 07/01/18 00:00 CONCLUSION: Right subclavian central venous line with no pneumothorax. Chest X-Ray 07/02/18 06:00 CONCLUSION: Right central line in superior vena cava. Patchy bilateral airspace disease. No effusion or pneumothorax. Assessment and Plan - Disease Oriented Problem List (1) Hepatitis B infection (2) Staghorn renal calculus (3) Acute UTI (4) Liver cirrhosis (5) Hep C w/o coma, chronic - Symptom Scale (1) Encephalopathy 0-10 Scale: Unable to quantify (2) Pain 0-10 Scale: Unable to quantify Pertinent Non-Medical Issues: Psychosocial: Patient indicates originally from [place]. Did live in [place] for about a year but has since been in [place] for several years. 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 Has 7 siblings though does not remain in close communication with them. Spiritual: Pentec[employer]ism, no particular affiliation. Requests machine i trimmer visit, machine i trimmer notified. Legal:Patient today mildly encephalopathic. Ammonia level elevated. Partially oriented. Appears capacitated enough to participate some in decision making but does not have full insight. He is able to designate healthcare surrogate names his brother Arley Valadez as someone he would trust to make decisions in an emergency. Would recommend shared decision making at this point given his fluctuating mental status. Ethical issues impacting care: No ethical issues identified Important Contacts: Brother Arley Valadez ([place]rett) in [place]- [facility] [place] #[phone] XXX OLD# XXX [phone] Brother ARLEY in [facility] [phone] [facility] where Sister Sruthi is incarcerated [phone]/ Lieutenant Adair . Prognosis: Patient is a poor historian, full medical history not readily available. Appears he has had some component of chronic liver disease, now with superimposed acute liver dysfunction. Hepatitis B, hepatitis C positive. Initiated on treatment here. Encephalopathic. Bilirubin trending up. Possible current acute disease process may be stable with ongoing aggressive treatment w antiviral, though he remains high risk for ongoing if liver disease does not stabilize or respond to treatment. He was stable for a few weeks of time here however he has had clinical deterioration in the past week, more pronounced in the past several days. Bilirubin uptrending, liver functions no longer elevating. Some hypotension . High risk for continued deterioration and . appropriate for hospice. Code Status: Full Code Plan: * Legal decision maker:Patient today mildly encephalopathic. Ammonia level elevated. Partially oriented. Appears capacitated enough to participate some in decision making but does not have full insight. He is able to designate healthcare surrogate names his brother Arley Valadez as someone he would trust to make decisions in an emergency. Would recommend shared decision making at this point given his fluctuating mental status.Brothers have previously indicated that they would be unable to help the patient physically or with housing for DC however they would remain available over the phone to assist him as needed. * Goals: Per initial interaction: patient goals stated to continue treatment he "wants to live ". He has limited insight and understanding at this time. Designated his brother Fortunato as healthcare surrogate. I have spoken at length with this brother today. He is in agreement to serve as HCS. Update and review of conditions provided today to brother. He wishes to talk to other family members, process information. No decisions made today. He plans to talk further with palliative tomorrow 05/12/18. He is unable to care for patient himself he [place] of [place]. He feels patient will likely need placement. Patient just moved here from [place] possibly in March at that time he had Medicaid coverage in [place]. * 07/02 goals remain aggressive, continue available treatment to keep pt alive- - additional family to be coming in town in the coming days to see pt, may consider de-escalation once all family has seen him ( most of the family has not been aware pt in hospital/pt has been estranged) Arley also informs me that correction facility will not be allowing pt sister Sruthi schroeder to see him. he has palliative contact information. * CODE STATUS: Full code * SYMPTOMS: --Pain-has had some ongoing pain to right flank/abdomen indicates this was new onset at time of presentation to [facility]. He has previously endorsed good relief with use of prn--indicates he had not previously been on any chronic opiates for chronic pain syndromes. Oxycodone 5 mg had been effective a few times per day. Patient now with increased lethargy /obtunded over the past week, worsening encephalopathy. Cautious use of opiates or benzos given deteriorating mental status. --Encephalopathy-patient with fluctuating mental status, hepatitis, bilirubin trending up, ammonia level also up and down during hospitalization. Bilirubin at some point stopped trending up; however uptrending past few days, now 19. GI following, reconsulted RE suspected variceal bleed. Poss EGD today . Was on PO On lactulose, rifaximin . Has been receiving hepatitis treatments. Previously oriented though forgetful. MELD 36. -- dyspnea/dysphagia- more lethargic, high risk for aspiration/respiratory decline 2/2 to neurological status. Now NPO. * Palliative care will continue to follow during hospital course as condition evolves, to assist patient/decision-maker with understanding of medical conditions, weighing benefits/burdens of treatment options, for clarification of goals of treatment. Additionally will assist with any symptoms of palliative concern Attestation Attestation: To help prompt me to consider important information that might be impacting today's encounter and assessment, information from prior notes written by myself or my colleagues may have been "brought forward" into today's note. My signature on this note, however, is an attestation that I personally performed the exam, history, and/or decision-making noted today, and, unless otherwise indicated, the interactions with patient, family, and staff as well as the review of records all occurred today. I also attest that the listed assessment and stated plan reflect my best clinical judgment today based on the combination of historical information, prior notes, and today's exam/ interactions. When time spent is documented, it refers only to time spent today by the signer, or if indicated, combined time spent today by collaborating physician/nurse practitioner.
[2018-07-02 12:01] LABS: Hematocrit 24.7 % (39.0-51.0)
--- NOTE | 2018-07-02 12:36 | P.PNGI ---
Subjective Interval history: Patient critically ill 07/01/2018 hemoglobin 6.6 hematocrit 20.9 Patient post transfusion of 2 units of packed RBCs 2 units of fresh frozen plasma 2 units of platelets. 07/01/2018 patient became hypotensive with melena stools <Kely Lloyd - Last Filed: 07/02/18 12:23> Physical Exam Vital signs: Vital Signs 07/01/18 16:00 07/01/18 17:13 07/01/18 19:15 Temperature 97.6 F 99.6 F Pulse Rate 105 H 108 H Respiratory Rate 14 18 Blood Pressure 76/54 L 82/52 L 75/53 L Pulse Oximetry 96 95 07/01/18 20:00 07/01/18 20:30 07/01/18 20:45 Temperature 99.6 F Pulse Rate 108 H 109 H 102 H Respiratory Rate 18 16 19 Blood Pressure 75/53 L 79/51 L Pulse Oximetry 95 90 L 07/01/18 21:01 07/01/18 21:03 07/01/18 21:05 Temperature Pulse Rate 103 H 103 H 105 H Respiratory Rate 16 15 17 Blood Pressure 92/56 L 92/50 L 94/51 L Pulse Oximetry 96 97 96 07/01/18 21:07 07/01/18 21:09 07/01/18 21:11 Temperature Pulse Rate 108 H 107 H 106 H Respiratory Rate 16 15 28 H Blood Pressure 96/49 L 100/50 L 99/52 L Pulse Oximetry 96 95 95 07/01/18 21:15 07/01/18 21:30 07/01/18 21:45 Temperature Pulse Rate 106 H 105 H 103 H Respiratory Rate 18 15 13 Blood Pressure 102/55 L 103/56 L 101/57 L Pulse Oximetry 100 100 100 07/01/18 21:53 07/01/18 21:54 07/01/18 21:58 Temperature 97.4 F L 97.4 F L Pulse Rate 104 H 102 H Respiratory Rate 12 19 Blood Pressure 101/57 L 101/57 L Pulse Oximetry 100 96 100 07/01/18 22:00 07/01/18 22:15 07/01/18 22:18 Temperature 97.4 F L 97.4 F L Pulse Rate 103 H 103 H 117 H Respiratory Rate 20 19 15 Blood Pressure 99/53 L 99/56 L 99/56 L Pulse Oximetry 100 99 100 07/01/18 22:21 07/01/18 22:30 07/01/18 22:40 Temperature 97.4 F L 97.4 F L Pulse Rate 105 H 108 H 109 H Respiratory Rate 15 15 19 Blood Pressure 99/56 L 107/71 107/71 Pulse Oximetry 99 98 98 07/01/18 22:45 07/01/18 23:00 07/01/18 23:03 Temperature 97.4 F L Pulse Rate 114 H 107 H 107 H Respiratory Rate 28 H 15 15 Blood Pressure 112/65 110/58 L 110/58 L Pulse Oximetry 97 100 99 07/01/18 23:15 07/01/18 23:30 07/01/18 23:35 Temperature 98.3 F Pulse Rate 102 H 96 H 96 H Respiratory Rate 17 17 18 Blood Pressure 137/58 L 118/58 L 118/58 L Pulse Oximetry 100 100 98 07/01/18 23:45 07/01/18 23:59 07/02/18 00:00 Temperature 98.3 F 98.4 F Pulse Rate 93 H 87 89 Respiratory Rate 14 16 16 Blood Pressure 115/61 115/61 118/66 Pulse Oximetry 100 100 99 07/02/18 00:15 07/02/18 00:30 07/02/18 00:45 Temperature Pulse Rate 91 H 92 H 97 H Respiratory Rate 15 15 14 Blood Pressure 133/61 126/60 140/61 Pulse Oximetry 98 99 97 07/02/18 01:00 07/02/18 01:15 07/02/18 01:30 Temperature Pulse Rate 94 H 90 89 Respiratory Rate 14 13 12 Blood Pressure 138/64 119/64 118/63 Pulse Oximetry 97 98 97 07/02/18 01:45 07/02/18 02:00 07/02/18 02:15 Temperature Pulse Rate 87 90 90 Respiratory Rate 14 15 13 Blood Pressure 109/63 111/63 116/68 Pulse Oximetry 98 98 98 07/02/18 02:30 07/02/18 02:45 07/02/18 03:00 Temperature Pulse Rate 97 H 100 H 99 H Respiratory Rate 14 15 14 Blood Pressure 103/57 L 111/53 L 88/54 L Pulse Oximetry 98 96 97 07/02/18 03:15 07/02/18 03:30 07/02/18 03:43 Temperature 99.3 F Pulse Rate 99 H 105 H 110 H Respiratory Rate 16 15 15 Blood Pressure 107/55 L 104/59 L 104/59 L Pulse Oximetry 96 93 L 95 07/02/18 03:45 07/02/18 03:56 07/02/18 03:58 Temperature Pulse Rate 108 H 106 H 104 H Respiratory Rate 15 13 13 Blood Pressure 107/61 119/64 117/67 Pulse Oximetry 95 97 97 07/02/18 03:59 07/02/18 04:00 07/02/18 04:15 Temperature 99.2 F Pulse Rate 102 H 100 H 97 H Respiratory Rate 12 10 L 11 L Blood Pressure 107/60 116/66 117/65 Pulse Oximetry 97 97 97 07/02/18 04:30 07/02/18 04:45 07/02/18 04:49 Temperature Pulse Rate 95 H 93 H 93 H Respiratory Rate 11 L 10 L 12 Blood Pressure 129/72 116/65 123/61 Pulse Oximetry 98 99 98 07/02/18 05:00 07/02/18 05:06 07/02/18 05:15 Temperature 99.2 F Pulse Rate 91 H 90 89 Respiratory Rate 9 L 11 L 10 L Blood Pressure 114/59 L 114/59 L 111/61 Pulse Oximetry 99 99 99 07/02/18 05:30 07/02/18 05:45 07/02/18 06:00 Temperature Pulse Rate 90 89 97 H Respiratory Rate 11 L 12 13 Blood Pressure 111/65 121/65 115/60 Pulse Oximetry 100 99 98 07/02/18 06:15 07/02/18 06:30 07/02/18 06:45 Temperature Pulse Rate 92 H 91 H 91 H Respiratory Rate 10 L 11 L 10 L Blood Pressure 111/53 L 110/53 L 101/62 Pulse Oximetry 99 99 100 07/02/18 07:00 07/02/18 07:15 07/02/18 07:30 Temperature Pulse Rate 92 H 93 H 91 H Respiratory Rate 10 L 10 L 12 Blood Pressure 113/58 L 103/58 L 98/55 L Pulse Oximetry 100 100 100 07/02/18 07:45 07/02/18 08:00 07/02/18 08:15 Temperature 98.5 F Pulse Rate 90 97 H 93 H Respiratory Rate 12 12 11 L Blood Pressure 106/59 L 106/54 L 109/56 L Pulse Oximetry 100 100 99 07/02/18 08:30 07/02/18 08:45 07/02/18 09:00 Temperature Pulse Rate 90 91 H 92 H Respiratory Rate 11 L 10 L 11 L Blood Pressure 104/55 L 106/56 L 107/55 L Pulse Oximetry 99 99 99 07/02/18 09:15 07/02/18 09:30 07/02/18 09:45 Temperature Pulse Rate 91 H 92 H 88 Respiratory Rate 10 L 11 L 13 Blood Pressure 104/59 L 104/59 L 102/59 L Pulse Oximetry 99 98 99 07/02/18 10:00 07/02/18 10:15 07/02/18 10:30 Temperature Pulse Rate 88 87 87 Respiratory Rate 13 13 13 Blood Pressure 97/52 L 104/59 L 104/56 L Pulse Oximetry 99 99 99 Intake & Output 07/01/18 07/02/18 07/02/18 18:59 06:59 18:59 Intake Total 1150 / 1150 6161 / 6161 150 / 150 Output Total 325 / 325 Balance 1150 / 1150 5836 / 5836 150 / 150 Weight 76.2 kg Intake: IV 1150 / 1150 2706 / 2706 150 / 150 D5W Inj 1,000 ML @ 100 mls/hr 1000 / 1000 1000 / 1000 IV.CONT .Q10H [facility] Rx#:[id number] Protonix Inj 80 MG In NS Inj 100 / 100 100 ML @ 10 mls/hr IV.CONT Q10H [facility] Rx#:[id number] Flexbumin 25% Inj 50 ML @ 60 50 / 50 50 / 50 mls/hr IV.SIG TID [facility] Rx#: [id number] Flexbumin 25% Inj 100 ML @ 60 100 / 100 mls/hr IV.SIG ONCE ONE Rx#: [id number] Calcium Gluconate Inj 2 GM In 120 / 120 D5W Inj 100 ML @ 120 mls/hr IV. SIG ONCE ONE Rx#:[id number] Diflucan 100 mg Premix Bag 50 50 / 50 ML @ 50 mls/hr IV.SIG Q24H [facility] Rx#:[id number] Mycamine Inj 100 MG In NS Inj 100 / 100 100 ML @ 100 mls/hr IV.SIG Q24H [facility] Rx#:[id number] Protonix Inj 80 MG In NS Inj 35 35 / 35 ML @ 420 mls/hr IV.SIG BOLUS ONE Rx#:[id number] Vitamin K Inj 10 MG In D5W Inj 51 / 51 50 ML @ 102 mls/hr IV.SIG ONCE ONE Rx#:[id number] NS Inj 1,000 ML @ 999 mls/hr IV 1000 / 1000 .SIG BOLUS ONE Rx#:[id number] NS Inj 250 ML @ 15 mls/hr IV. 250 / 250 SIG ONCE [facility] Rx#:[id number] Rocephin Inj 1,000 MG In NS Inj 100 / 100 100 ML @ 200 mls/hr IV.SIG Q24H [facility] Rx#:[id number] Intake (Blood Product) Amt 3455 / 3455 Plasma Thawed 5 Day Acda Unit 224 / 224 [id number] Plasma Thawed 5 Day Cp2d Unit 373 / 373 [id number] Plasma Thawed 5 Day Cp2d Unit 294 / 294 [id number] Plasma Thawed 5 Day Cp2d Unit 266 / 266 [id number] Plt Pheresis B Leukored Pas 280 / 280 Unit [id number] Plt Pheresis B Leukored Pas 194 / 194 Unit [id number] Pre-Pooled Cryo Thawed 10units 224 / 224 Unit [id number] Rbc As-3 Leukoreduced Unit 400 / 400 [id number] Rbc As-3 Leukoreduced Unit 400 / 400 [id number] Rbc As-3 Leukoreduced Unit 400 / 400 [id number] Rbc As-3 Leukoreduced Unit 400 / 400 [id number] Output: Urine Amount (Catheter) 325 / 325 Indwelling Urethral Catheter 325 / 325 Other: Date of Last Bowel Movement 07/01/18 07/01/18 07/01/18 # Incontinent Bowel Movements 3 6 - Constitutional thin, chronically ill appearing - Routine HEENT Exam Head: Present: normocephalic Eye: Present: conjunctival icterus - Routine Respiratory Exam Present: CTA bilaterally - Routine Cardiovascular Exam Present: RRR - Routine Abdominal Exam Present: soft, normoactive bowel sounds. Absent: tenderness - Routine Extremities Exam Present: edema - Routine Skin Exam Present: dry, warm, jaundice - Urinary Catheter Management Condom Cath placed during this visit: yes Reason for continuing: Hourly intake/output Insertion date: 07/02/18 Indwelling Urethral Catheter Cath placed during this visit: no <Kely Lloyd - Last Filed: 07/02/18 12:23> Vital signs: Vital Signs 07/01/18 17:13 07/01/18 19:15 07/01/18 20:00 Temperature 99.6 F 99.6 F Pulse Rate 108 H 108 H Respiratory Rate 18 18 Blood Pressure 82/52 L 75/53 L 75/53 L Pulse Oximetry 95 95 07/01/18 20:30 07/01/18 20:45 07/01/18 21:01 Temperature Pulse Rate 109 H 102 H 103 H Respiratory Rate 16 19 16 Blood Pressure 79/51 L 92/56 L Pulse Oximetry 90 L 96 07/01/18 21:03 07/01/18 21:05 07/01/18 21:07 Temperature Pulse Rate 103 H 105 H 108 H Respiratory Rate 15 17 16 Blood Pressure 92/50 L 94/51 L 96/49 L Pulse Oximetry 97 96 96 07/01/18 21:09 07/01/18 21:11 07/01/18 21:15 Temperature Pulse Rate 107 H 106 H 106 H Respiratory Rate 15 28 H 18 Blood Pressure 100/50 L 99/52 L 102/55 L Pulse Oximetry 95 95 100 07/01/18 21:30 07/01/18 21:45 07/01/18 21:53 Temperature 97.4 F L Pulse Rate 105 H 103 H 104 H Respiratory Rate 15 13 12 Blood Pressure 103/56 L 101/57 L 101/57 L Pulse Oximetry 100 100 100 07/01/18 21:54 07/01/18 21:58 07/01/18 22:00 Temperature 97.4 F L 97.4 F L Pulse Rate 102 H 103 H Respiratory Rate 19 20 Blood Pressure 101/57 L 99/53 L Pulse Oximetry 96 100 100 07/01/18 22:15 07/01/18 22:18 07/01/18 22:21 Temperature 97.4 F L 97.4 F L Pulse Rate 103 H 117 H 105 H Respiratory Rate 19 15 15 Blood Pressure 99/56 L 99/56 L 99/56 L Pulse Oximetry 99 100 99 07/01/18 22:30 07/01/18 22:40 07/01/18 22:45 Temperature 97.4 F L Pulse Rate 108 H 109 H 114 H Respiratory Rate 15 19 28 H Blood Pressure 107/71 107/71 112/65 Pulse Oximetry 98 98 97 07/01/18 23:00 07/01/18 23:03 07/01/18 23:15 Temperature 97.4 F L Pulse Rate 107 H 107 H 102 H Respiratory Rate 15 15 17 Blood Pressure 110/58 L 110/58 L 137/58 L Pulse Oximetry 100 99 100 07/01/18 23:30 07/01/18 23:35 07/01/18 23:45 Temperature 98.3 F Pulse Rate 96 H 96 H 93 H Respiratory Rate 17 18 14 Blood Pressure 118/58 L 118/58 L 115/61 Pulse Oximetry 100 98 100 07/01/18 23:59 07/02/18 00:00 07/02/18 00:15 Temperature 98.3 F 98.4 F Pulse Rate 87 89 91 H Respiratory Rate 16 16 15 Blood Pressure 115/61 118/66 133/61 Pulse Oximetry 100 99 98 07/02/18 00:30 07/02/18 00:45 07/02/18 01:00 Temperature Pulse Rate 92 H 97 H 94 H Respiratory Rate 15 14 14 Blood Pressure 126/60 140/61 138/64 Pulse Oximetry 99 97 97 07/02/18 01:15 07/02/18 01:30 07/02/18 01:45 Temperature Pulse Rate 90 89 87 Respiratory Rate 13 12 14 Blood Pressure 119/64 118/63 109/63 Pulse Oximetry 98 97 98 07/02/18 02:00 07/02/18 02:15 07/02/18 02:30 Temperature Pulse Rate 90 90 97 H Respiratory Rate 15 13 14 Blood Pressure 111/63 116/68 103/57 L Pulse Oximetry 98 98 98 07/02/18 02:45 07/02/18 03:00 07/02/18 03:15 Temperature Pulse Rate 100 H 99 H 99 H Respiratory Rate 15 14 16 Blood Pressure 111/53 L 88/54 L 107/55 L Pulse Oximetry 96 97 96 07/02/18 03:30 07/02/18 03:43 07/02/18 03:45 Temperature 99.3 F Pulse Rate 105 H 110 H 108 H Respiratory Rate 15 15 15 Blood Pressure 104/59 L 104/59 L 107/61 Pulse Oximetry 93 L 95 95 07/02/18 03:56 07/02/18 03:58 07/02/18 03:59 Temperature Pulse Rate 106 H 104 H 102 H Respiratory Rate 13 13 12 Blood Pressure 119/64 117/67 107/60 Pulse Oximetry 97 97 97 07/02/18 04:00 07/02/18 04:15 07/02/18 04:30 Temperature 99.2 F Pulse Rate 100 H 97 H 95 H Respiratory Rate 10 L 11 L 11 L Blood Pressure 116/66 117/65 129/72 Pulse Oximetry 97 97 98 07/02/18 04:45 07/02/18 04:49 07/02/18 05:00 Temperature Pulse Rate 93 H 93 H 91 H Respiratory Rate 10 L 12 9 L Blood Pressure 116/65 123/61 114/59 L Pulse Oximetry 99 98 99 07/02/18 05:06 07/02/18 05:15 07/02/18 05:30 Temperature 99.2 F Pulse Rate 90 89 90 Respiratory Rate 11 L 10 L 11 L Blood Pressure 114/59 L 111/61 111/65 Pulse Oximetry 99 99 100 07/02/18 05:45 07/02/18 06:00 07/02/18 06:15 Temperature Pulse Rate 89 97 H 92 H Respiratory Rate 12 13 10 L Blood Pressure 121/65 115/60 111/53 L Pulse Oximetry 99 98 99 07/02/18 06:30 07/02/18 06:45 07/02/18 07:00 Temperature Pulse Rate 91 H 91 H 92 H Respiratory Rate 11 L 10 L 10 L Blood Pressure 110/53 L 101/62 113/58 L Pulse Oximetry 99 100 100 07/02/18 07:15 07/02/18 07:30 07/02/18 07:45 Temperature Pulse Rate 93 H 91 H 90 Respiratory Rate 10 L 12 12 Blood Pressure 103/58 L 98/55 L 106/59 L Pulse Oximetry 100 100 100 07/02/18 08:00 07/02/18 08:15 07/02/18 08:30 Temperature 98.5 F Pulse Rate 97 H 93 H 90 Respiratory Rate 12 11 L 11 L Blood Pressure 106/54 L 109/56 L 104/55 L Pulse Oximetry 100 99 99 07/02/18 08:45 07/02/18 09:00 07/02/18 09:15 Temperature Pulse Rate 91 H 92 H 91 H Respiratory Rate 10 L 11 L 10 L Blood Pressure 106/56 L 107/55 L 104/59 L Pulse Oximetry 99 99 99 07/02/18 09:30 07/02/18 09:45 07/02/18 10:00 Temperature Pulse Rate 92 H 88 88 Respiratory Rate 11 L 13 13 Blood Pressure 104/59 L 102/59 L 97/52 L Pulse Oximetry 98 99 99 07/02/18 10:15 07/02/18 10:30 07/02/18 10:45 Temperature Pulse Rate 87 87 86 Respiratory Rate 13 13 13 Blood Pressure 104/59 L 104/56 L 104/57 L Pulse Oximetry 99 99 98 07/02/18 11:00 07/02/18 11:15 07/02/18 11:30 Temperature Pulse Rate 88 86 87 Respiratory Rate 14 12 12 Blood Pressure 103/55 L 102/60 111/60 Pulse Oximetry 98 99 98 07/02/18 11:45 07/02/18 12:00 07/02/18 12:15 Temperature 98.6 F Pulse Rate 89 89 88 Respiratory Rate 12 12 12 Blood Pressure 111/64 102/57 L 100/57 L Pulse Oximetry 98 98 99 07/02/18 12:30 07/02/18 12:45 07/02/18 13:00 Temperature Pulse Rate 87 86 86 Respiratory Rate 14 14 14 Blood Pressure 106/58 L 103/58 L 110/54 L Pulse Oximetry 98 98 98 07/02/18 13:15 07/02/18 13:30 07/02/18 13:45 Temperature Pulse Rate 87 87 86 Respiratory Rate 11 L 13 13 Blood Pressure 124/61 117/55 L 112/57 L Pulse Oximetry 98 99 98 07/02/18 14:00 07/02/18 14:15 07/02/18 14:30 Temperature Pulse Rate 88 89 89 Respiratory Rate 13 14 14 Blood Pressure 117/57 L 114/57 L 95/54 L Pulse Oximetry 98 98 98 07/02/18 14:45 07/02/18 15:00 07/02/18 15:15 Temperature Pulse Rate 86 86 86 Respiratory Rate 11 L 11 L 13 Blood Pressure 97/53 L 94/52 L 93/50 L Pulse Oximetry 98 99 98 07/02/18 15:30 07/02/18 15:45 07/02/18 16:00 Temperature 98.7 F Pulse Rate 85 88 90 Respiratory Rate 12 13 13 Blood Pressure 103/50 L 102/55 L 100/56 L Pulse Oximetry 99 98 98 Intake & Output 07/01/18 07/02/18 07/02/18 18:59 06:59 18:59 Intake Total 1150 / 1150 6161 / 6161 150 / 150 Output Total 325 / 325 Balance 1150 / 1150 5836 / 5836 150 / 150 Weight 76.2 kg Intake: IV 1150 / 1150 2706 / 2706 150 / 150 D5W Inj 1,000 ML @ 100 mls/hr 1000 / 1000 1000 / 1000 IV.CONT .Q10H [facility] Rx#:[id number] Protonix Inj 80 MG In NS Inj 100 / 100 100 ML @ 10 mls/hr IV.CONT Q10H [facility] Rx#:[id number] Flexbumin 25% Inj 50 ML @ 60 50 / 50 50 / 50 mls/hr IV.SIG TID NIRAJ Rx#: [id number] Flexbumin 25% Inj 100 ML @ 60 100 / 100 mls/hr IV.SIG ONCE ONE Rx#: [id number] Calcium Gluconate Inj 2 GM In 120 / 120 D5W Inj 100 ML @ 120 mls/hr IV. SIG ONCE ONE Rx#:[id number] Diflucan 100 mg Premix Bag 50 50 / 50 ML @ 50 mls/hr IV.SIG Q24H [facility] Rx#:[id number] Mycamine Inj 100 MG In NS Inj 100 / 100 100 ML @ 100 mls/hr IV.SIG Q24H [facility] Rx#:[id number] Protonix Inj 80 MG In NS Inj 35 35 / 35 ML @ 420 mls/hr IV.SIG BOLUS ONE Rx#:[id number] Vitamin K Inj 10 MG In D5W Inj 51 / 51 50 ML @ 102 mls/hr IV.SIG ONCE ONE Rx#:[id number] NS Inj 1,000 ML @ 999 mls/hr IV 1000 / 1000 .SIG BOLUS ONE Rx#:[id number] NS Inj 250 ML @ 15 mls/hr IV. 250 / 250 SIG ONCE [facility] Rx#:[id number] Rocephin Inj 1,000 MG In NS Inj 100 / 100 100 ML @ 200 mls/hr IV.SIG Q24H [facility] Rx#:[id number] Intake (Blood Product) Amt 3455 / 3455 Plasma Thawed 5 Day Acda Unit 224 / 224 [id number] Plasma Thawed 5 Day Cp2d Unit 373 / 373 [id number] Plasma Thawed 5 Day Cp2d Unit 294 / 294 [id number] Plasma Thawed 5 Day Cp2d Unit 266 / 266 [id number] Plt Pheresis B Leukored Pas 280 / 280 Unit [id number] Plt Pheresis B Leukored Pas 194 / 194 Unit [id number] Pre-Pooled Cryo Thawed 10units 224 / 224 Unit [id number] Rbc As-3 Leukoreduced Unit 400 / 400 [id number] Rbc As-3 Leukoreduced Unit 400 / 400 [id number] Rbc As-3 Leukoreduced Unit 400 / 400 [id number] Rbc As-3 Leukoreduced Unit 400 / 400 [id number] Output: Urine Amount (Catheter) 325 / 325 Indwelling Urethral Catheter 325 / 325 Other: Date of Last Bowel Movement 07/01/18 07/01/18 07/01/18 # Incontinent Bowel Movements 3 6 - Urinary Catheter Management Condom Cath placed during this visit: no Indwelling Urethral Catheter Cath placed during this visit: no <Becca Hernandez A - Last Filed: 07/02/18 16:52> Results - Labs CBC & Chem 7: 07/02/18 11:40 07/02/18 02:30 Laboratory Results - last 24 hr 07/01/18 07/01/18 07/01/18 14:07 17:21 18:00 WBC RBC Hgb Hct MCV MCH MCHC RDW Plt Count MPV Prelim Diff (Auto) Neut % (Auto) Lymph % (Auto) Wheeler % (Auto) Eos % (Auto) Baso % (Auto) Neut # (Auto) Lymph # (Auto) Wheeler # (Auto) Eos # (Auto) Baso # (Auto) WBC Differential Seg Neuts % (Manual) Band Neuts % (Manual) Lymphocytes % (Manual) Monocytes % (Manual) Abs Neuts (Manual) Nucleated RBCs/100 WBC Differential Comment Platelet Estimate Platelet Morphology Dimorphic RBCs [place] Bodies [place] Bodies PT INR Fibrinogen Puncture Site Patient Temperature O2 Saturation ABG pH ABG pCO2 ABG pO2 ABG HCO3 ABG O2 Content ABG Base Excess ABG Methemoglobin Kody Test Hemoglobin Carboxyhemoglobin O2 Delivery Device Liter Flow Critical Value Sodium 154 H Potassium 4.6 Chloride 124 H Carbon Dioxide 24.6 Anion Gap 5 BUN 57 H Creatinine 1.66 H Estimated GFR 43 L POC Glucose 110 99 Random Glucose 109 H Lactic Acid Calcium 9.6 Phosphorus 1.5 L Magnesium 2.1 Total Bilirubin 20.0 H AST 41 H ALT 45 Alkaline Phosphatase 47 Ammonia Total Protein 4.4 L Albumin 1.7 L Triglycerides 34 L Nasal Screen MRSA (PCR) Blood Type Antibody Screen [facility] Gel Crossmatch Blood Bank Comment Bld Prod Order Comment 07/01/18 07/01/18 07/01/18 18:00 20:30 20:45 WBC RBC Hgb 6.6 L* Hct 20.9 L* MCV MCH MCHC RDW Plt Count MPV Prelim Diff (Auto) Neut % (Auto) Lymph % (Auto) Wheeler % (Auto) Eos % (Auto) Baso % (Auto) Neut # (Auto) Lymph # (Auto) Wheeler # (Auto) Eos # (Auto) Baso # (Auto) WBC Differential Seg Neuts % (Manual) Band Neuts % (Manual) Lymphocytes % (Manual) Monocytes % (Manual) Abs Neuts (Manual) Nucleated RBCs/100 WBC Differential Comment Platelet Estimate Platelet Morphology Dimorphic RBCs [place] Bodies [place] Bodies PT Greater than 180.0 H D INR Greater than 18.2 H* Fibrinogen Puncture Site Patient Temperature O2 Saturation ABG pH ABG pCO2 ABG pO2 ABG HCO3 ABG O2 Content ABG Base Excess ABG Methemoglobin Kody Test Hemoglobin Carboxyhemoglobin O2 Delivery Device Liter Flow Critical Value Sodium Potassium Chloride Carbon Dioxide Anion Gap BUN Creatinine Estimated GFR POC Glucose Random Glucose Lactic Acid Calcium Phosphorus Magnesium Total Bilirubin AST ALT Alkaline Phosphatase Ammonia Total Protein Albumin Triglycerides Nasal Screen MRSA (PCR) Mrsa detected Blood Type Antibody Screen [facility] Gel Crossmatch Blood Bank Comment Bld Prod Order Comment 07/01/18 07/01/18 07/01/18 20:45 20:45 20:45 WBC RBC Hgb Hct MCV MCH MCHC RDW Plt Count MPV Prelim Diff (Auto) Neut % (Auto) Lymph % (Auto) Wheeler % (Auto) Eos % (Auto) Baso % (Auto) Neut # (Auto) Lymph # (Auto) Wheeler # (Auto) Eos # (Auto) Baso # (Auto) WBC Differential Seg Neuts % (Manual) Band Neuts % (Manual) Lymphocytes % (Manual) Monocytes % (Manual) Abs Neuts (Manual) Nucleated RBCs/100 WBC Differential Comment Platelet Estimate Platelet Morphology Dimorphic RBCs [place] Bodies [place] Bodies PT INR Fibrinogen Puncture Site Patient Temperature O2 Saturation ABG pH ABG pCO2 ABG pO2 ABG HCO3 ABG O2 Content ABG Base Excess ABG Methemoglobin Kody Test Hemoglobin Carboxyhemoglobin O2 Delivery Device Liter Flow Critical Value Sodium Potassium Chloride Carbon Dioxide Anion Gap BUN Creatinine Estimated GFR POC Glucose Random Glucose Lactic Acid Calcium Phosphorus 1.7 L Magnesium 2.1 Total Bilirubin AST ALT Alkaline Phosphatase Ammonia 26 Total Protein Albumin Triglycerides Nasal Screen MRSA (PCR) Blood Type O Negative Antibody Screen Negative [facility] Gel Crossmatch Blood Bank Comment Bld Prod Order Comment 07/01/18 07/01/18 07/01/18 20:45 20:45 21:28 WBC RBC Hgb Hct MCV MCH MCHC RDW Plt Count MPV Prelim Diff (Auto) Neut % (Auto) Lymph % (Auto) Wheeler % (Auto) Eos % (Auto) Baso % (Auto) Neut # (Auto) Lymph # (Auto) [place] # (Auto) Eos # (Auto) Baso # (Auto) WBC Differential Seg Neuts % (Manual) Band Neuts % (Manual) Lymphocytes % (Manual) Monocytes % (Manual) Abs Neuts (Manual) Nucleated RBCs/100 WBC Differential Comment Platelet Estimate Platelet Morphology Dimorphic RBCs [place] Bodies [place] Bodies PT INR Fibrinogen Puncture Site Right radial Patient Temperature 98.6 O2 Saturation 96 ABG pH 7.41 ABG pCO2 36 L ABG pO2 104 ABG HCO3 22 ABG O2 Content 6.7 L ABG Base Excess -1.7 ABG Methemoglobin 0.0 Kody Test Present Hemoglobin 4.8 L* Carboxyhemoglobin 3.0 O2 Delivery Device Nasal cannula Liter Flow 1.50 Critical Value Yes Sodium Potassium Chloride Carbon Dioxide Anion Gap BUN Creatinine Estimated GFR POC Glucose Random Glucose Lactic Acid Calcium Phosphorus Magnesium Total Bilirubin AST ALT Alkaline Phosphatase Ammonia Total Protein Albumin Triglycerides Nasal Screen MRSA (PCR) Blood Type Antibody Screen [facility] Gel Crossmatch See Detail Blood Bank Comment Bld Prod Order Comment 07/01/18 07/01/18 07/02/18 21:30 22:06 02:30 WBC 7.3 RBC 1.82 L Hgb 6.8 L* Hct 19.5 L* MCV 107.1 H D MCH 37.3 H MCHC 34.8 RDW 29.5 H D Plt Count 47 L D MPV 8.0 Prelim Diff (Auto) Neut % (Auto) Lymph % (Auto) Wheeler % (Auto) Eos % (Auto) Baso % (Auto) Neut # (Auto) Lymph # (Auto) Wheeler # (Auto) Eos # (Auto) Baso # (Auto) WBC Differential Seg Neuts % (Manual) Band Neuts % (Manual) Lymphocytes % (Manual) Monocytes % (Manual) Abs Neuts (Manual) Nucleated RBCs/100 WBC Differential Comment Platelet Estimate Platelet Morphology Dimorphic RBCs [place] Bodies [place] Bodies PT INR Fibrinogen Puncture Site Patient Temperature O2 Saturation ABG pH ABG pCO2 ABG pO2 ABG HCO3 ABG O2 Content ABG Base Excess ABG Methemoglobin Kody Test Hemoglobin Carboxyhemoglobin O2 Delivery Device Liter Flow Critical Value Sodium Potassium Chloride Carbon Dioxide Anion Gap BUN Creatinine Estimated GFR POC Glucose Random Glucose Lactic Acid 3.9 H Calcium Phosphorus Magnesium Total Bilirubin AST ALT Alkaline Phosphatase Ammonia Total Protein Albumin Triglycerides Nasal Screen MRSA (PCR) Blood Type Antibody Screen [facility] Gel Crossmatch Blood Bank Comment Bld Prod Order Comment 07/02/18 07/02/18 07/02/18 02:30 02:30 02:58 WBC RBC Hgb Hct MCV MCH MCHC RDW Plt Count MPV Prelim Diff (Auto) Neut % (Auto) Lymph % (Auto) Wheeler % (Auto) Eos % (Auto) Baso % (Auto) Neut # (Auto) Lymph # (Auto) Wheeler # (Auto) Eos # (Auto) Baso # (Auto) WBC Differential Seg Neuts % (Manual) Band Neuts % (Manual) Lymphocytes % (Manual) Monocytes % (Manual) Abs Neuts (Manual) Nucleated RBCs/100 WBC Differential Comment Platelet Estimate Platelet Morphology Dimorphic RBCs [place] Bodies [place] Bodies PT 17.8 H D INR 1.8 Fibrinogen 125 L Puncture Site Patient Temperature O2 Saturation ABG pH ABG pCO2 ABG pO2 ABG HCO3 ABG O2 Content ABG Base Excess ABG Methemoglobin Kody Test Hemoglobin Carboxyhemoglobin O2 Delivery Device Liter Flow Critical Value Sodium 150 H Potassium 4.1 Chloride 116 H D Carbon Dioxide 25.2 Anion Gap 9 BUN 58 H Creatinine 1.68 H Estimated GFR 42 L POC Glucose Random Glucose 132 H Lactic Acid Calcium 9.9 Phosphorus Magnesium 2.0 Total Bilirubin 19.4 H AST 34 ALT 38 Alkaline Phosphatase 61 Ammonia Total Protein 4.7 L Albumin 2.2 L Triglycerides Nasal Screen MRSA (PCR) Blood Type Antibody Screen [facility] Gel Crossmatch See Detail Blood Bank Comment Bld Prod Order Comment 07/02/18 07/02/18 07/02/18 07:56 10:33 11:40 WBC 8.5 RBC 2.58 L Hgb 9.1 L D 9.0 L Hct 25.8 L 24.7 L MCV 99.7 D MCH 35.3 H MCHC 35.4 RDW 27.7 H Plt Count 31 L D MPV 8.3 Prelim Diff (Auto) Slide review pending Neut % (Auto) 89.5 H Lymph % (Auto) 7.6 L Wheeler % (Auto) 2.5 Eos % (Auto) 0.3 Baso % (Auto) 0.1 Neut # (Auto) 7.6 Lymph # (Auto) 0.7 L Wheeler # (Auto) 0.2 Eos # (Auto) 0.0 Baso # (Auto) 0.0 WBC Differential Manual diff final Seg Neuts % (Manual) 89 H Band Neuts % (Manual) 2 Lymphocytes % (Manual) 5 L Monocytes % (Manual) 4 Abs Neuts (Manual) 7.7 Nucleated RBCs/100 WBC 2 H Differential Comment . Platelet Estimate Low L Platelet Morphology Normal Dimorphic RBCs Present H Pappenheimer Bodies Present H [place] Bodies Present H PT INR Fibrinogen Puncture Site Patient Temperature O2 Saturation ABG pH ABG pCO2 ABG pO2 ABG HCO3 ABG O2 Content ABG Base Excess ABG Methemoglobin Kody Test Hemoglobin Carboxyhemoglobin O2 Delivery Device Liter Flow Critical Value Sodium Potassium Chloride Carbon Dioxide Anion Gap BUN Creatinine Estimated GFR POC Glucose 110 Random Glucose Lactic Acid Calcium Phosphorus Magnesium Total Bilirubin AST ALT Alkaline Phosphatase Ammonia Total Protein Albumin Triglycerides Nasal Screen MRSA (PCR) Blood Type Antibody Screen MTS Gel Crossmatch Blood Bank Comment Bld Prod Order Comment Microbiology 07/01/18 18:00 Blood - Peripheral Aerobic Blood Culture - Preliminary No growth in 1 day 07/01/18 18:00 Blood - Peripheral Anaerobic Blood Culture - Preliminary No growth in 1 day 07/01/18 17:50 Blood - Peripheral Aerobic Blood Culture - Preliminary No growth in 1 day 07/01/18 17:50 Blood - Peripheral Anaerobic Blood Culture - Preliminary No growth in 1 day 07/01/18 14:28 Stool Stool Occult Blood (SHARI) - Final Hemoccult positive - Imaging Impressions Chest X-Ray 07/01/18 00:00 CONCLUSION: Right subclavian central venous line with no pneumothorax. Chest X-Ray 07/02/18 06:00 CONCLUSION: Right central line in superior vena cava. Patchy bilateral airspace disease. No effusion or pneumothorax. <Kely Lloyd - Last Filed: 07/02/18 12:23> - Labs CBC & Chem 7: 07/02/18 11:40 07/02/18 02:30 Laboratory Results - last 24 hr 07/01/18 07/01/18 07/01/18 17:21 18:00 18:00 WBC RBC Hgb 6.6 L* Hct 20.9 L* MCV MCH MCHC RDW Plt Count MPV Prelim Diff (Auto) Neut % (Auto) Lymph % (Auto) Wheeler % (Auto) Eos % (Auto) Baso % (Auto) Neut # (Auto) Lymph # (Auto) Wheeler # (Auto) Eos # (Auto) Baso # (Auto) WBC Differential Seg Neuts % (Manual) Band Neuts % (Manual) Lymphocytes % (Manual) Monocytes % (Manual) Abs Neuts (Manual) Nucleated RBCs/100 WBC Differential Comment Platelet Estimate Platelet Morphology Dimorphic RBCs Pappenheimer Bodies [place] Bodies PT INR Fibrinogen Puncture Site Patient Temperature O2 Saturation ABG pH ABG pCO2 ABG pO2 ABG HCO3 ABG O2 Content ABG Base Excess ABG Methemoglobin Kody Test Hemoglobin Carboxyhemoglobin O2 Delivery Device Liter Flow Critical Value Sodium 154 H Potassium 4.6 Chloride 124 H Carbon Dioxide 24.6 Anion Gap 5 BUN 57 H Creatinine 1.66 H Estimated GFR 43 L POC Glucose 99 Random Glucose 109 H Lactic Acid Calcium 9.6 Phosphorus 1.5 L Magnesium 2.1 Total Bilirubin 20.0 H AST 41 H ALT 45 Alkaline Phosphatase 47 Ammonia Total Protein 4.4 L Albumin 1.7 L Triglycerides 34 L Nasal Screen MRSA (PCR) Blood Type Antibody Screen MTS Gel Crossmatch Blood Bank Comment Bld Prod Order Comment 07/01/18 07/01/18 07/01/18 20:30 20:45 20:45 WBC RBC Hgb Hct MCV MCH MCHC RDW Plt Count MPV Prelim Diff (Auto) Neut % (Auto) Lymph % (Auto) Wheeler % (Auto) Eos % (Auto) Baso % (Auto) Neut # (Auto) Lymph # (Auto) Wheeler # (Auto) Eos # (Auto) Baso # (Auto) WBC Differential Seg Neuts % (Manual) Band Neuts % (Manual) Lymphocytes % (Manual) Monocytes % (Manual) Abs Neuts (Manual) Nucleated RBCs/100 WBC Differential Comment Platelet Estimate Platelet Morphology Dimorphic RBCs Pappenheimer Bodies [place] Bodies PT Greater than 180.0 H D INR Greater than 18.2 H* Fibrinogen Puncture Site Patient Temperature O2 Saturation ABG pH ABG pCO2 ABG pO2 ABG HCO3 ABG O2 Content ABG Base Excess ABG Methemoglobin Kody Test Hemoglobin Carboxyhemoglobin O2 Delivery Device Liter Flow Critical Value Sodium Potassium Chloride Carbon Dioxide Anion Gap BUN Creatinine Estimated GFR POC Glucose Random Glucose Lactic Acid Calcium Phosphorus 1.7 L Magnesium 2.1 Total Bilirubin AST ALT Alkaline Phosphatase Ammonia Total Protein Albumin Triglycerides Nasal Screen MRSA (PCR) Mrsa detected Blood Type Antibody Screen MTS Gel Crossmatch Blood Bank Comment Bld Prod Order Comment 07/01/18 07/01/18 07/01/18 20:45 20:45 20:45 WBC RBC Hgb Hct MCV MCH MCHC RDW Plt Count MPV Prelim Diff (Auto) Neut % (Auto) Lymph % (Auto) Wheeler % (Auto) Eos % (Auto) Baso % (Auto) Neut # (Auto) Lymph # (Auto) Wheeler # (Auto) Eos # (Auto) Baso # (Auto) WBC Differential Seg Neuts % (Manual) Band Neuts % (Manual) Lymphocytes % (Manual) Monocytes % (Manual) Abs Neuts (Manual) Nucleated RBCs/100 WBC Differential Comment Platelet Estimate Platelet Morphology Dimorphic RBCs Pappenheimer Bodies [place] Bodies PT INR Fibrinogen Puncture Site Patient Temperature O2 Saturation ABG pH ABG pCO2 ABG pO2 ABG HCO3 ABG O2 Content ABG Base Excess ABG Methemoglobin Kody Test Hemoglobin Carboxyhemoglobin O2 Delivery Device Liter Flow Critical Value Sodium Potassium Chloride Carbon Dioxide Anion Gap BUN Creatinine Estimated GFR POC Glucose Random Glucose Lactic Acid Calcium Phosphorus Magnesium Total Bilirubin AST ALT Alkaline Phosphatase Ammonia 26 Total Protein Albumin Triglycerides Nasal Screen MRSA (PCR) Blood Type O Negative Antibody Screen Negative MTS Gel Crossmatch See Detail Blood Bank Comment Bld Prod Order Comment 07/01/18 07/01/18 07/01/18 20:45 21:28 21:30 WBC RBC Hgb Hct MCV MCH MCHC RDW Plt Count MPV Prelim Diff (Auto) Neut % (Auto) Lymph % (Auto) Wheeler % (Auto) Eos % (Auto) Baso % (Auto) Neut # (Auto) Lymph # (Auto) Wheeler # (Auto) Eos # (Auto) Baso # (Auto) WBC Differential Seg Neuts % (Manual) Band Neuts % (Manual) Lymphocytes % (Manual) Monocytes % (Manual) Abs Neuts (Manual) Nucleated RBCs/100 WBC Differential Comment Platelet Estimate Platelet Morphology Dimorphic RBCs Pappenheimer Bodies [place] Bodies PT INR Fibrinogen Puncture Site Right radial Patient Temperature 98.6 O2 Saturation 96 ABG pH 7.41 ABG pCO2 36 L ABG pO2 104 ABG HCO3 22 ABG O2 Content 6.7 L ABG Base Excess -1.7 ABG Methemoglobin 0.0 Kody Test Present Hemoglobin 4.8 L* Carboxyhemoglobin 3.0 O2 Delivery Device Nasal cannula Liter Flow 1.50 Critical Value Yes Sodium Potassium Chloride Carbon Dioxide Anion Gap BUN Creatinine Estimated GFR POC Glucose Random Glucose Lactic Acid 3.9 H Calcium Phosphorus Magnesium Total Bilirubin AST ALT Alkaline Phosphatase Ammonia Total Protein Albumin Triglycerides Nasal Screen MRSA (PCR) Blood Type Antibody Screen MTS Gel Crossmatch Blood Bank Comment Bld Prod Order Comment 07/01/18 07/02/18 07/02/18 22:06 02:30 02:30 WBC 7.3 RBC 1.82 L Hgb 6.8 L* Hct 19.5 L* MCV 107.1 H D MCH 37.3 H MCHC 34.8 RDW 29.5 H D Plt Count 47 L D MPV 8.0 Prelim Diff (Auto) Neut % (Auto) Lymph % (Auto) Wheeler % (Auto) Eos % (Auto) Baso % (Auto) Neut # (Auto) Lymph # (Auto) Wheeler # (Auto) Eos # (Auto) Baso # (Auto) WBC Differential Seg Neuts % (Manual) Band Neuts % (Manual) Lymphocytes % (Manual) Monocytes % (Manual) Abs Neuts (Manual) Nucleated RBCs/100 WBC Differential Comment Platelet Estimate Platelet Morphology Dimorphic RBCs Pappenheimer Bodies [place] Bodies PT INR Fibrinogen Puncture Site Patient Temperature O2 Saturation ABG pH ABG pCO2 ABG pO2 ABG HCO3 ABG O2 Content ABG Base Excess ABG Methemoglobin Kdoy Test Hemoglobin Carboxyhemoglobin O2 Delivery Device Liter Flow Critical Value Sodium 150 H Potassium 4.1 Chloride 116 H D Carbon Dioxide 25.2 Anion Gap 9 BUN 58 H Creatinine 1.68 H Estimated GFR 42 L POC Glucose Random Glucose 132 H Lactic Acid Calcium 9.9 Phosphorus Magnesium 2.0 Total Bilirubin 19.4 H AST 34 ALT 38 Alkaline Phosphatase 61 Ammonia Total Protein 4.7 L Albumin 2.2 L Triglycerides Nasal Screen MRSA (PCR) Blood Type Antibody Screen MTS Gel Crossmatch Blood Bank Comment Bld Prod Order Comment 07/02/18 07/02/18 07/02/18 02:30 02:58 07:56 WBC 8.5 RBC 2.58 L Hgb 9.1 L D Hct 25.8 L MCV 99.7 D MCH 35.3 H MCHC 35.4 RDW 27.7 H Plt Count 31 L D MPV 8.3 Prelim Diff (Auto) Slide review pending Neut % (Auto) 89.5 H Lymph % (Auto) 7.6 L Wheeler % (Auto) 2.5 Eos % (Auto) 0.3 Baso % (Auto) 0.1 Neut # (Auto) 7.6 Lymph # (Auto) 0.7 L Wheeler # (Auto) 0.2 Eos # (Auto) 0.0 Baso # (Auto) 0.0 WBC Differential Manual diff final Seg Neuts % (Manual) 89 H Band Neuts % (Manual) 2 Lymphocytes % (Manual) 5 L Monocytes % (Manual) 4 Abs Neuts (Manual) 7.7 Nucleated RBCs/100 WBC 2 H Differential Comment . Platelet Estimate Low L Platelet Morphology Normal Dimorphic RBCs Present H Pappenheimer Bodies Present H [place] Bodies Present H PT 17.8 H D INR 1.8 Fibrinogen 125 L Puncture Site Patient Temperature O2 Saturation ABG pH ABG pCO2 ABG pO2 ABG HCO3 ABG O2 Content ABG Base Excess ABG Methemoglobin Kody Test Hemoglobin Carboxyhemoglobin O2 Delivery Device Liter Flow Critical Value Sodium Potassium Chloride Carbon Dioxide Anion Gap BUN Creatinine Estimated GFR POC Glucose Random Glucose Lactic Acid Calcium Phosphorus Magnesium Total Bilirubin AST ALT Alkaline Phosphatase Ammonia Total Protein Albumin Triglycerides Nasal Screen MRSA (PCR) Blood Type Antibody Screen MTS Gel Crossmatch See Detail Blood Bank Comment Bld Prod Order Comment 07/02/18 07/02/18 10:33 11:40 WBC RBC Hgb 9.0 L Hct 24.7 L MCV MCH MCHC RDW Plt Count MPV Prelim Diff (Auto) Neut % (Auto) Lymph % (Auto) Wheeler % (Auto) Eos % (Auto) Baso % (Auto) Neut # (Auto) Lymph # (Auto) Wheeler # (Auto) Eos # (Auto) Baso # (Auto) WBC Differential Seg Neuts % (Manual) Band Neuts % (Manual) Lymphocytes % (Manual) Monocytes % (Manual) Abs Neuts (Manual) Nucleated RBCs/100 WBC Differential Comment Platelet Estimate Platelet Morphology Dimorphic RBCs Pappenheimer Bodies [place] Bodies PT INR Fibrinogen Puncture Site Patient Temperature O2 Saturation ABG pH ABG pCO2 ABG pO2 ABG HCO3 ABG O2 Content ABG Base Excess ABG Methemoglobin Kody Test Hemoglobin Carboxyhemoglobin O2 Delivery Device Liter Flow Critical Value Sodium Potassium Chloride Carbon Dioxide Anion Gap BUN Creatinine Estimated GFR POC Glucose 110 Random Glucose Lactic Acid Calcium Phosphorus Magnesium Total Bilirubin AST ALT Alkaline Phosphatase Ammonia Total Protein Albumin Triglycerides Nasal Screen MRSA (PCR) Blood Type Antibody Screen MTS Gel Crossmatch Blood Bank Comment Bld Prod Order Comment Microbiology 07/01/18 18:00 Blood - Peripheral Aerobic Blood Culture - Preliminary No growth in 1 day 07/01/18 18:00 Blood - Peripheral Anaerobic Blood Culture - Preliminary No growth in 1 day 07/01/18 17:50 Blood - Peripheral Aerobic Blood Culture - Preliminary No growth in 1 day 07/01/18 17:50 Blood - Peripheral Anaerobic Blood Culture - Preliminary No growth in 1 day 07/01/18 14:28 Stool Stool Occult Blood (SHARI) - Final Hemoccult positive - Imaging Impressions Chest X-Ray 07/01/18 00:00 CONCLUSION: Right subclavian central venous line with no pneumothorax. Chest X-Ray 07/02/18 06:00 CONCLUSION: Right central line in superior vena cava. Patchy bilateral airspace disease. No effusion or pneumothorax. <Becca Hernandez - Last Filed: 07/02/18 16:52> Assessment and Plan (1) Liver cirrhosis Status: Acute Code(s): K74.60 - Unspecified cirrhosis of liver (2) Hep C w/o coma, chronic Status: Chronic Code(s): B18.2 - Chronic viral hepatitis C - Plan Initial consult 05/07/18-Liver cirrhosis-most recent labs 05/06/2018 revealed total bilirubin of 7.6 AST of 300 ALT 157 alkaline phosphatase 123 ammonia level 136 albumin 1.6. Discussed liver function with the patient who is aware of worsening values. We will continue to monitor. Chronic hepatitis C/acute hepatitis B-patient with history of chronic hepatitis C currently restarted on antiviral for same (Tenofovir). Patient denies any known reason for pablo acute hepatitis B. Discussed precautions with patient as well as risk factors and he verbalizes understanding. On 05/08/2018 patient appears to have slow gradual decline as far as his mental status and some mild to moderate anxiety today. Some nausea and vomiting at lunchtime acute onset. Discussed again with patient his liver disease and the need for medical management even when he is out of the hospital. Current ammonia level 95 today albumin 1.5, bilirubin 7.8, AST 260 ALT 145, alkaline phosphatase 119 PT/INR 1.8. Noted mild trend of bilirubin increasing but liver enzymes mild decrease. Discuss with patient his support system when getting out of the hospital and states that he is supposed to talk to case management sometime today. States he does have a brother who does not seem to understand how serious his condition is which worries him as far. Palliative care team on board which might could assist with contact to brother if patient agrees. According to the record patient will be going home with a female friend who will assist him. States last bowel movement this past p.m. so questionable effectiveness of lactulose. Overall poor prognosis and general decline noted. Due to patient's portal hypertensive gastropathy, added further medication management to his regimen Encephalopathy appears to be worsened today. Patient is now on VIREAD 06/30/18, Reconsulted for possible PEG. Labs reviewed. Low platelet count, 26. Spoke with niece in , explained patient is high risk for hemorrhage and unable to receive PEG placement. Supportive care given. Discussed with Hospitalist and Dr. Hernandez. No plans for any procedures at this time. Poor prognosis 07/02/2018 GI asked to see patient due to possible lower GI bleeding-hepatitis C with liver cirrhosis -07/01/2018 patient noted to be hypotensive with melena stools -07/01/2018 hemoglobin 6.8 hematocrit 19.5, posttransfusion hemoglobin 9.1 hematocrit 25.8 INR 1.8 -Total bilirubin 19.4 AST 34 ALT 38 alk phos 61 ammonia level 26 -Patient received 2 units packed RBCs, 2 units fresh frozen plasma, 2 units platelets. -Currently patient on octreotide drip, pantoprazole infusion, K-Phos at 42, lactated Ringer's at 75 mL's per hour and Levophed vasopressor at 6 mcg. -BP 104/57, sinus rhythm 85, 4 L nasal cannula with saturation of 99% Plan -N.p.o. -GI bleed likely variceal -Monitor for bleeding -Transfuse as needed -Fresh frozen plasma and platelets -Continue IV Protonix -Continue octreotide -Monitor hemoglobin and hematocrit closely -Monitor coagulation studies closely -Endoscopy when stable -Supportive care -Plan of care as per critical care medicine Patient was seen per myself and Dr. Hernandez, note written on his behalf. - Attending Attestation Dr. hernandez <Kely Lloyd - Last Filed: 07/02/18 12:23> (1) Liver cirrhosis Status: Acute Code(s): K74.60 - Unspecified cirrhosis of liver (2) Hep C w/o coma, chronic Status: Chronic Code(s): B18.2 - Chronic viral hepatitis C - Attending Attestation Seen and examined, plan as above. Unstable at this point with pressors, will need coagulopathy and thrombocytopenia. Will follow up with you. <Becca Hernandez - Last Filed: 07/02/18 16:52> <Kely Lloyd - Last Filed: 07/02/18 12:23> (1) Liver cirrhosis Qualifiers: Hepatic cirrhosis type: other cirrhosis Qualified Code(s): K74.69 - Other cirrhosis of liver <Becca Hernandez - Last Filed: 07/02/18 16:52> (1) Liver cirrhosis Qualifiers: Hepatic cirrhosis type: other cirrhosis Qualified Code(s): K74.69 - Other cirrhosis of liver
--- NOTE | 2018-07-02 13:29 | P.PNCC ---
Subjective Subjective Remarks/Hospital Course: 07/01: Patient is a 58 y/o male with history of Hep B, Hep C, and liver cirrhosis admitted on 04/29 after being transferred from [facility] for staghorn renal calculus complicated by UTI. Urology was consulted at that time, deemed no surgical intervention needed at this time. Patient had been treated with IV antibiotics and antifungals for UTI. GI was consulted for management of end-stage liver disease and pancytopenia. Last EGD and colonoscopy in November 2016, portal hypertensive gastropathy noted on EGD. During the hospital course, he continued to decline with worsening liver function and coagulopathy. Today's a.m. labs showed a hemoglobin 8 platelet 29 INR 4.6 bilirubin of 20 BUN 57 with a creatinine of 1.66. Today evening patient developed large melanotic stools and became hypotensive a stat hemoglobin showed 6.6. I discussed with the medicine REGISTERED NURSE FLOAT POOL stat transfusion ordered for 2 units of PRBC, 2 units of FFP, 2 pack units of platelets, 1 pack units of cryoprecipitate. Patient continues to have worsening hypotension and was moved to the ICU critical care medicine was consulted I evaluated the patient in the ICU emergently. Currently systolic blood pressures in the 70s, Levophed had been started currently at 5 mcg/min. Patient is very encephalopathy unable to follow commands. Type and crossmatch, followed by blood transfusion is pending at this time. Palliative care is following, and at this time patient is a full code. Dr. Bonner from GI recommends PPI and supportive care. In addition to blood product resuscitation, I will started on octreotide infusion and Rocephin for SBP prophylaxis. Prognosis is guarded at this time. I suspect a variceal bleed. From GI notes it appears like patient had been evaluated for liver transplant at [facility] and had been declined 07/02: Blood pressure borderline. Received 4 units PRBCs last night along with 2 units FFP, 1 unit cryoprecipitate, 2 units platelets. Hemoglobin greater than 9 currently. Awaiting EGD and colonoscopy per GI. Patient is cleared for endoscopy per critical care. Objective Vital Signs / I&O: Vital Signs 07/01/18 16:00 07/01/18 17:13 07/01/18 19:15 Temperature 97.6 F 99.6 F Pulse Rate 105 H 108 H Respiratory Rate 14 18 Blood Pressure 76/54 L 82/52 L 75/53 L Pulse Oximetry 96 95 07/01/18 20:00 07/01/18 20:30 07/01/18 20:45 Temperature 99.6 F Pulse Rate 108 H 109 H 102 H Respiratory Rate 18 16 19 Blood Pressure 75/53 L 79/51 L Pulse Oximetry 95 90 L 07/01/18 21:01 07/01/18 21:03 07/01/18 21:05 Temperature Pulse Rate 103 H 103 H 105 H Respiratory Rate 16 15 17 Blood Pressure 92/56 L 92/50 L 94/51 L Pulse Oximetry 96 97 96 07/01/18 21:07 07/01/18 21:09 07/01/18 21:11 Temperature Pulse Rate 108 H 107 H 106 H Respiratory Rate 16 15 28 H Blood Pressure 96/49 L 100/50 L 99/52 L Pulse Oximetry 96 95 95 07/01/18 21:15 07/01/18 21:30 07/01/18 21:45 Temperature Pulse Rate 106 H 105 H 103 H Respiratory Rate 18 15 13 Blood Pressure 102/55 L 103/56 L 101/57 L Pulse Oximetry 100 100 100 07/01/18 21:53 07/01/18 21:54 07/01/18 21:58 Temperature 97.4 F L 97.4 F L Pulse Rate 104 H 102 H Respiratory Rate 12 19 Blood Pressure 101/57 L 101/57 L Pulse Oximetry 100 96 100 07/01/18 22:00 07/01/18 22:15 07/01/18 22:18 Temperature 97.4 F L 97.4 F L Pulse Rate 103 H 103 H 117 H Respiratory Rate 20 19 15 Blood Pressure 99/53 L 99/56 L 99/56 L Pulse Oximetry 100 99 100 07/01/18 22:21 07/01/18 22:30 07/01/18 22:40 Temperature 97.4 F L 97.4 F L Pulse Rate 105 H 108 H 109 H Respiratory Rate 15 15 19 Blood Pressure 99/56 L 107/71 107/71 Pulse Oximetry 99 98 98 07/01/18 22:45 07/01/18 23:00 07/01/18 23:03 Temperature 97.4 F L Pulse Rate 114 H 107 H 107 H Respiratory Rate 28 H 15 15 Blood Pressure 112/65 110/58 L 110/58 L Pulse Oximetry 97 100 99 07/01/18 23:15 07/01/18 23:30 07/01/18 23:35 Temperature 98.3 F Pulse Rate 102 H 96 H 96 H Respiratory Rate 17 17 18 Blood Pressure 137/58 L 118/58 L 118/58 L Pulse Oximetry 100 100 98 07/01/18 23:45 07/01/18 23:59 07/02/18 00:00 Temperature 98.3 F 98.4 F Pulse Rate 93 H 87 89 Respiratory Rate 14 16 16 Blood Pressure 115/61 115/61 118/66 Pulse Oximetry 100 100 99 07/02/18 00:15 07/02/18 00:30 07/02/18 00:45 Temperature Pulse Rate 91 H 92 H 97 H Respiratory Rate 15 15 14 Blood Pressure 133/61 126/60 140/61 Pulse Oximetry 98 99 97 07/02/18 01:00 07/02/18 01:15 07/02/18 01:30 Temperature Pulse Rate 94 H 90 89 Respiratory Rate 14 13 12 Blood Pressure 138/64 119/64 118/63 Pulse Oximetry 97 98 97 07/02/18 01:45 07/02/18 02:00 07/02/18 02:15 Temperature Pulse Rate 87 90 90 Respiratory Rate 14 15 13 Blood Pressure 109/63 111/63 116/68 Pulse Oximetry 98 98 98 07/02/18 02:30 07/02/18 02:45 07/02/18 03:00 Temperature Pulse Rate 97 H 100 H 99 H Respiratory Rate 14 15 14 Blood Pressure 103/57 L 111/53 L 88/54 L Pulse Oximetry 98 96 97 07/02/18 03:15 07/02/18 03:30 07/02/18 03:43 Temperature 99.3 F Pulse Rate 99 H 105 H 110 H Respiratory Rate 16 15 15 Blood Pressure 107/55 L 104/59 L 104/59 L Pulse Oximetry 96 93 L 95 07/02/18 03:45 07/02/18 03:56 07/02/18 03:58 Temperature Pulse Rate 108 H 106 H 104 H Respiratory Rate 15 13 13 Blood Pressure 107/61 119/64 117/67 Pulse Oximetry 95 97 97 07/02/18 03:59 07/02/18 04:00 07/02/18 04:15 Temperature 99.2 F Pulse Rate 102 H 100 H 97 H Respiratory Rate 12 10 L 11 L Blood Pressure 107/60 116/66 117/65 Pulse Oximetry 97 97 97 07/02/18 04:30 07/02/18 04:45 07/02/18 04:49 Temperature Pulse Rate 95 H 93 H 93 H Respiratory Rate 11 L 10 L 12 Blood Pressure 129/72 116/65 123/61 Pulse Oximetry 98 99 98 07/02/18 05:00 07/02/18 05:06 07/02/18 05:15 Temperature 99.2 F Pulse Rate 91 H 90 89 Respiratory Rate 9 L 11 L 10 L Blood Pressure 114/59 L 114/59 L 111/61 Pulse Oximetry 99 99 99 07/02/18 05:30 07/02/18 05:45 07/02/18 06:00 Temperature Pulse Rate 90 89 97 H Respiratory Rate 11 L 12 13 Blood Pressure 111/65 121/65 115/60 Pulse Oximetry 100 99 98 07/02/18 06:15 07/02/18 06:30 07/02/18 06:45 Temperature Pulse Rate 92 H 91 H 91 H Respiratory Rate 10 L 11 L 10 L Blood Pressure 111/53 L 110/53 L 101/62 Pulse Oximetry 99 99 100 07/02/18 07:00 07/02/18 07:15 07/02/18 07:30 Temperature Pulse Rate 92 H 93 H 91 H Respiratory Rate 10 L 10 L 12 Blood Pressure 113/58 L 103/58 L 98/55 L Pulse Oximetry 100 100 100 07/02/18 07:45 07/02/18 08:00 07/02/18 08:15 Temperature 98.5 F Pulse Rate 90 97 H 93 H Respiratory Rate 12 12 11 L Blood Pressure 106/59 L 106/54 L 109/56 L Pulse Oximetry 100 100 99 07/02/18 08:30 07/02/18 08:45 07/02/18 09:00 Temperature Pulse Rate 90 91 H 92 H Respiratory Rate 11 L 10 L 11 L Blood Pressure 104/55 L 106/56 L 107/55 L Pulse Oximetry 99 99 99 07/02/18 09:15 07/02/18 09:30 07/02/18 09:45 Temperature Pulse Rate 91 H 92 H 88 Respiratory Rate 10 L 11 L 13 Blood Pressure 104/59 L 104/59 L 102/59 L Pulse Oximetry 99 98 99 07/02/18 10:00 07/02/18 10:15 07/02/18 10:30 Temperature Pulse Rate 88 87 87 Respiratory Rate 13 13 13 Blood Pressure 97/52 L 104/59 L 104/56 L Pulse Oximetry 99 99 99 Intake & Output 07/01/18 07/02/18 07/02/18 18:59 06:59 18:59 Intake Total 1150 / 1150 6161 / 6161 150 / 150 Output Total 325 / 325 Balance 1150 / 1150 5836 / 5836 150 / 150 Weight 76.2 kg Intake: IV 1150 / 1150 2706 / 2706 150 / 150 D5W Inj 1,000 ML @ 100 mls/hr 1000 / 1000 1000 / 1000 IV.CONT .Q10H NIRAJ Rx#:[id number] Protonix Inj 80 MG In NS Inj 100 / 100 100 ML @ 10 mls/hr IV.CONT Q10H NIRAJ Rx#:[id number] Flexbumin 25% Inj 50 ML @ 60 50 / 50 50 / 50 mls/hr IV.SIG TID NIRAJ Rx#: [id number] Flexbumin 25% Inj 100 ML @ 60 100 / 100 mls/hr IV.SIG ONCE ONE Rx#: [id number] Calcium Gluconate Inj 2 GM In 120 / 120 D5W Inj 100 ML @ 120 mls/hr IV. SIG ONCE ONE Rx#:[id number] Diflucan 100 mg Premix Bag 50 50 / 50 ML @ 50 mls/hr IV.SIG Q24H [facility] Rx#:[id number] Mycamine Inj 100 MG In NS Inj 100 / 100 100 ML @ 100 mls/hr IV.SIG Q24H NIRAJ Rx#:[id number] Protonix Inj 80 MG In NS Inj 35 35 / 35 ML @ 420 mls/hr IV.SIG BOLUS ONE Rx#:[id number] Vitamin K Inj 10 MG In D5W Inj 51 / 51 50 ML @ 102 mls/hr IV.SIG ONCE ONE Rx#:[id number] NS Inj 1,000 ML @ 999 mls/hr IV 1000 / 1000 .SIG BOLUS ONE Rx#:[id number] NS Inj 250 ML @ 15 mls/hr IV. 250 / 250 SIG ONCE NIRAJ Rx#:[id number] Rocephin Inj 1,000 MG In NS Inj 100 / 100 100 ML @ 200 mls/hr IV.SIG Q24H [facility] Rx#:[id number] Intake (Blood Product) Amt 3455 / 3455 Plasma Thawed 5 Day Acda Unit 224 / 224 [id number] Plasma Thawed 5 Day Cp2d Unit 373 / 373 [id number] Plasma Thawed 5 Day Cp2d Unit 294 / 294 [id number] Plasma Thawed 5 Day Cp2d Unit 266 / 266 [id number] Plt Pheresis B Leukored Pas 280 / 280 Unit [id number] Plt Pheresis B Leukored Pas 194 / 194 Unit [id number] Pre-Pooled Cryo Thawed 10units 224 / 224 Unit [id number] Rbc As-3 Leukoreduced Unit 400 / 400 [id number] Rbc As-3 Leukoreduced Unit 400 / 400 [id number] Rbc As-3 Leukoreduced Unit 400 / 400 [id number] Rbc As-3 Leukoreduced Unit 400 / 400 [id number] Output: Urine Amount (Catheter) 325 / 325 Indwelling Urethral Catheter 325 / 325 Other: Date of Last Bowel Movement 07/01/18 07/01/18 07/01/18 # Incontinent Bowel Movements 3 6 Result Diagrams: 07/02/18 11:40 07/02/18 02:30 Objective Remarks: Narrative: GENERAL: Thin chronically ill appearing male patient. Encephalopathy lethargic. Opens eyes to voice SKIN: Warm and dry. +Jaundiced. HEAD: Normocephalic. EYES: Pupils equal and round. Bilateral icterus ENT: No nasal bleeding or discharge. Dry mucus membranes. NECK: Trachea midline. CARDIOVASCULAR: Regular rate and rhythm. Systolic murmur auscultated. RESPIRATORY: No accessory muscle use. Air entry equal GASTROINTESTINAL: Abdomen soft, non-tender, nondistended. MUSCULOSKELETAL: Extremities without clubbing, cyanosis, or edema. NEUROLOGICAL: Patient is encephalopathy lethargic. Opens eyes do not follow commands intermittently gets agitated. No focal deficits Assessment and Plan - Assessment and Plan Plan: ASSESSMENT: Hemorrhagic shock GI bleed most likely variceal Anemia requiring transfusion Severe coagulopathy with elevated INR Thrombocytopenia Hyperfibrinogenemia Hepatic encephalopathy UTI Acute kidney injury, Possible hepatorenal syndrome. Hepatitis B, hepatitis C Alcohol dependence PLAN: NEURO: -Receiving Xifaxan and lactulose -Hold while n.p.o. -Minimize sedation -Continue to supplement multivitamin bag RESP: -DuoNeb as needed -Protecting airway at this time CV: -Levophed to keep map above 65 -Normal saline 1 L bolus maintenance fluid LR at 75 per hour -Blood product resuscitation as below -Continue IV albumin GI/HEME: -N.p.o., IV Protonix 80 mg bolus and infusion at 8 mg/h -Octreotide infusion per protocol -Rocephin for SBP prophylaxis -Stat reconsult to GI; medicine REGISTERED NURSE FLOAT POOL discussed with Dr. Bonner -Transfused 4 units of PRBC, 2 units of FFP, 2 pack units of platelets, cryoprecipitate and calcium 2 g -Serial hemoglobin check repeat coags in a.m. -Most likely variceal bleed, OK to proceed with endoscopy. -Pancytopenia and coagulopathy secondary to liver disease S/p treatment with Harvoni and recently tenofovir by GI with diagnosis of hepatitis B. The patient not compliant. Worked up in [facility] for liver transplant 2016 but was not a candidate due to social issues and lack of support. Last EGD and colonoscopy in November 2016, portal hypertensive gastropathy : -Monitor renal function closely. Strict intake output ID: -Rocephin for GI prophylaxis -Currently on Diflucan for Shante UTI, urine cx 04/30 and 06/28 C Glabrata- change to Micafungin ENDO: -Electrolyte replacement PROPH: -Bilateral lower extremity SCDs. IV Protonix. Chemical DVT prophylaxis is contraindicated LINES: -Right subclavian central line placed 07/01/2018 CC time 45 min Patient is very critical life-threatening GI bleed with end-stage liver disease. Most likely variceal bleeding. Patient is also encephalopathy. Overall prognosis very poor palliative care is following
[2018-07-02] MEDS: Ferrous Sulfate 325 MG Tablet PO SCH ×2 (14:21→18:00)
[2018-07-02 19:11] LABS: Hematocrit 23.5 % (39.0-51.0); Hemoglobin 8.2 gm/dL (13.0-17.0)
[2018-07-02] MEDS: Multivitamin Inj 10 ML, Folic Acid Inj 1 MG in AA 4.25 %/D5W - Electrolytes 2,000 ML IV.SIG SCH (21:03)
[2018-07-02] MEDS: Escitalopram 10 MG Tablet PO SCH (21:04)
[2018-07-03 00:41] LABS: Hematocrit 24.6 % (39.0-51.0); Hemoglobin 8.5 gm/dL (13.0-17.0)
[2018-07-03] MEDS: Pantoprazole Inj 80 MG in Sodium Chlor 0.9% Inj 100 ML IV.CONT SCH ×5 (02:11→23:51)
[2018-07-03 05:35] LABS: Hematocrit 25.4 % (39.0-51.0); Hemoglobin 9.1 gm/dL (13.0-17.0)
[2018-07-03] MEDS: Albumin Human 25% Inj 50 ML IV.SIG SCH ×4 (09:41→17:52)
[2018-07-03] MEDS: Folic Acid 1 MG Tablet PO SCH (09:42)
[2018-07-03] MEDS: Senna/Docusate Sodium 8.6/50 MG Tablet PO SCH ×2 (09:42→21:18)
[2018-07-03] MEDS: Sodium Chloride 0.9% 2 ML Flush BID IV.FLUSH SCH ×2 (09:42→21:18)
[2018-07-03] MEDS: Tenofovir 300 MG Tablet PO SCH (09:43)
[2018-07-03] MEDS: Phytonadione Inj 10 MG/ML Vial SQ SCH (10:27)
[2018-07-03] MEDS: rifAXIMin 550 MG Tablet PO SCH ×2 (10:28→21:18)
--- NOTE | 2018-07-03 11:28 | P.PNPAL ---
Reason for Visit Reason for visit: a. To assist with evaluation and management of symptoms including: Encephalopathy, pain b. To assist medical decision maker(s) with: better understanding of current medical conditions; weighing benefits/burdens of medical treatment options; making medical treatment decisions. Subjective Subjective/Interval History: This 58-year-old patient who was transferred here to [facility] from [facility] in [place] on 04/29/18. There he had gone for evaluation of right-sided abdominal pain on 04/28. He also presented with constipation and dark urine. Abdominal CT indicative of portal hypertension changes, cirrhotic liver, and 3.5 cm staghorn calculus right kidney with possible mild duodenitis and cholelithiasis. + pancytopenia, + UTI - started on zosyn IV. He was transferred to [place] due to staghorn calculus w concomitant infection, and requiring a urologist evaluation. also noted to have chronic hep C, cirrhosis, stable Neuropsychiatry prev consulted to assist with determining if patient has capacity to make medical decisions. He had previously been deemed capacitated to make medical decisions however also was recommended for support outside of the hospital upon discharge due to cognitive deficits. . Seen today to follow-up on comfort, goals with patient and/or decision makers. Dual visit w Kristina Woody APRN. remains in ICU . s/p multiple transfusions yesterday. on norepinephrine for hypotension. suspected variceal bleed, started on octreotide drip, GI reconsulted-- GI recommends supportive care/transfuse as needed, consider EGD when clinically stable, poor prognosis. H&H stable today .4, no new coags or chemistry. Seen in room . . . . - - - - Discussed with medical attending , nurse. Advance Directives Advance Directives Date on File: 05/07/18 Health Care Surrogate Name and Number: Names brother Arley Valadez (brett) Objective Vital Signs: Vital Signs 07/02/18 11:30 07/02/18 11:45 07/02/18 12:00 Temperature 98.6 F Pulse Rate 87 89 89 Respiratory Rate 12 12 12 Blood Pressure 111/60 111/64 102/57 L Pulse Oximetry 98 98 98 07/02/18 12:15 07/02/18 12:30 07/02/18 12:45 Temperature Pulse Rate 88 87 86 Respiratory Rate 12 14 14 Blood Pressure 100/57 L 106/58 L 103/58 L Pulse Oximetry 99 98 98 07/02/18 13:00 07/02/18 13:15 07/02/18 13:30 Temperature Pulse Rate 86 87 87 Respiratory Rate 14 11 L 13 Blood Pressure 110/54 L 124/61 117/55 L Pulse Oximetry 98 98 99 07/02/18 13:45 07/02/18 14:00 07/02/18 14:15 Temperature Pulse Rate 86 88 89 Respiratory Rate 13 13 14 Blood Pressure 112/57 L 117/57 L 114/57 L Pulse Oximetry 98 98 98 07/02/18 14:30 07/02/18 14:45 07/02/18 15:00 Temperature Pulse Rate 89 86 86 Respiratory Rate 14 11 L 11 L Blood Pressure 95/54 L 97/53 L 94/52 L Pulse Oximetry 98 98 99 07/02/18 15:15 07/02/18 15:30 07/02/18 15:45 Temperature Pulse Rate 86 85 88 Respiratory Rate 13 12 13 Blood Pressure 93/50 L 103/50 L 102/55 L Pulse Oximetry 98 99 98 07/02/18 16:00 07/02/18 16:15 07/02/18 16:30 Temperature 98.7 F Pulse Rate 90 93 H 93 H Respiratory Rate 13 18 16 Blood Pressure 100/56 L 100/56 L 104/54 L Pulse Oximetry 98 97 98 07/02/18 16:45 07/02/18 17:00 07/02/18 17:15 Temperature Pulse Rate 92 H 92 H 93 H Respiratory Rate 27 H 34 H 32 H Blood Pressure 95/50 L 96/52 L 97/53 L Pulse Oximetry 98 98 98 07/02/18 17:30 07/02/18 17:45 07/02/18 18:00 Temperature Pulse Rate 93 H 90 87 Respiratory Rate 34 H 26 H 28 H Blood Pressure 96/55 L 91/55 L 89/54 L Pulse Oximetry 99 99 99 07/02/18 20:00 07/02/18 20:30 07/02/18 20:45 Temperature 98.2 F Pulse Rate 88 85 Respiratory Rate 24 23 Blood Pressure 87/51 L 91/50 L Pulse Oximetry 97 07/02/18 21:00 07/02/18 22:00 07/02/18 23:00 Temperature Pulse Rate 86 84 85 Respiratory Rate 23 14 34 H Blood Pressure 82/46 L 92/52 L 94/57 L Pulse Oximetry 97 98 98 07/03/18 00:00 07/03/18 01:00 07/03/18 01:45 Temperature 98 F Pulse Rate 89 90 89 Respiratory Rate 32 H 40 H 33 H Blood Pressure 107/60 101/59 L 106/58 L Pulse Oximetry 96 96 96 07/03/18 02:00 07/03/18 03:00 07/03/18 03:30 Temperature Pulse Rate 90 90 92 H Respiratory Rate 40 H 22 33 H Blood Pressure 93/55 L 110/60 109/56 L Pulse Oximetry 96 96 95 07/03/18 04:00 07/03/18 04:15 07/03/18 04:30 Temperature 98 F Pulse Rate 93 H 104 H 95 H Respiratory Rate 24 24 26 H Blood Pressure 91/58 L 92/60 L 92/61 L Pulse Oximetry 96 94 L 96 07/03/18 05:00 07/03/18 05:15 07/03/18 05:30 Temperature Pulse Rate 93 H 95 H 95 H Respiratory Rate 25 H 20 19 Blood Pressure 109/65 121/56 L 125/55 L Pulse Oximetry 96 96 96 07/03/18 05:45 07/03/18 06:00 07/03/18 06:15 Temperature Pulse Rate 96 H 101 H 99 H Respiratory Rate 20 22 24 Blood Pressure 110/58 L 111/65 114/66 Pulse Oximetry 96 96 96 07/03/18 06:30 07/03/18 06:45 Temperature Pulse Rate 98 H 96 H Respiratory Rate 19 20 Blood Pressure 122/60 111/55 L Pulse Oximetry 95 96 Intake & Output 07/02/18 07/03/18 07/03/18 18:59 06:59 18:59 Intake Total 350 / 350 1100 / 1100 Output Total 500 / 500 900 / 900 Balance -150 / -150 200 / 200 Weight 78.1 kg Intake: IV 350 / 350 1100 / 1100 Protonix Inj 80 MG In NS Inj 200 / 200 100 / 100 100 ML @ 10 mls/hr IV.CONT Q10H NIRAJ Rx#:[id number] Flexbumin 25% Inj 50 ML @ 60 150 / 150 mls/hr IV.SIG TID NIRAJ Rx#: [id number] LR 1000 mL Inj 1,000 ML @ 75 1000 / 1000 mls/hr IV.SIG .[id number] NIRAJ Rx#: [id number] Output: Urine Amount (Catheter) 500 / 500 900 / 900 Indwelling Urethral Catheter 500 / 500 900 / 900 Other: Date of Last Bowel Movement 07/02/18 07/03/18 # Incontinent Bowel Movements 1 Physical Exam: CONSTITUTIONAL/GENERAL: This is a chronically ill appearing male, obtunded ,weak , nonverbal, + temporal wasting TUBES/LINES/DRAINS: PIV UE, central line, drake catheter SKIN: No rashes, or lesions. +Ecchymoses & small petechiae scattered over body. Fading small ecchymosis above left eyebrow. jaundice. Skin warm/dry. EYES: does not spont open eyes. + scleral icterus. No injection or drainage. Fundi not examined. ENT: Nose without bleeding or purulent drainage. Does not open mouth for oropharynx exam. CARDIOVASCULAR: Regular rate and rhythm , 3/6 systolic murmur . No JVD. Peripheral pulses symmetric. Chronic vascular changes to skin bilateral lower legs, edema BLE RESPIRATORY/CHEST: Symmetric, unlabored respirations. irregular and shallow intermittently. On NC . Clear to auscultation, decreased air movement throughout. GASTROINTESTINAL: Abdomen slightly firm, seems to tense w palpation. nondistended/slight splenomegaly .no ascites. Bowel sounds hypoactive. MUSCULOSKELETAL: Extremities without clubbing, cyanosis. No joint tenderness or effusion noted. chronic vascular discoloration visible to bilateral lower legs , edema BLE NEUROLOGICAL: Very lethargic/obtunded. Does not respond to my exam. No eye opening. Does not follow any commands. Does not verbalize. Minimal weak movement localizing to touch on extremities. PSYCHIATRIC: Too lethargic to assess . Diagnostic Tests Laboratory: Laboratory Results - last 72 hr 06/30/18 06/30/18 06/30/18 10:28 10:38 18:34 WBC 3.5 L RBC 1.95 L Hgb 8.3 L Hct 24.6 L MCV 126.0 H MCH 42.7 H MCHC 33.9 RDW 22.9 H Plt Count 26 L MPV 10.0 Prelim Diff (Auto) Slide review pending Neut % (Auto) 82.2 H Lymph % (Auto) 10.7 [place] % (Auto) 6.8 Eos % (Auto) 0.2 Baso % (Auto) 0.1 Neut # (Auto) 2.8 Lymph # (Auto) 0.4 L [place] # (Auto) 0.2 Eos # (Auto) 0.0 Baso # (Auto) 0.0 WBC Differential Manual diff final Seg Neuts % (Manual) 74 H Band Neuts % (Manual) 13 H Lymphocytes % (Manual) 5 L Monocytes % (Manual) 6 Metamyelocytes % (Man) 2 H Abs Neuts (Manual) 3.1 Nucleated RBCs/100 WBC 2 H Differential Comment . Toxic Granulation 2+ H Platelet Estimate Low L Platelet Morphology Normal Dimorphic RBCs Present H Pappenheimer Bodies Hernandez-Ridgemark Bodies PT 43.0 H INR 4.3 Fibrinogen Puncture Site Patient Temperature O2 Saturation ABG pH ABG pCO2 ABG pO2 ABG HCO3 ABG O2 Content ABG Base Excess ABG Methemoglobin Kody Test Hemoglobin Carboxyhemoglobin O2 Delivery Device Liter Flow Critical Value Sodium Potassium Chloride Carbon Dioxide Anion Gap BUN Creatinine Estimated GFR POC Glucose 126 H Random Glucose Lactic Acid Calcium Phosphorus Magnesium Total Bilirubin AST ALT Alkaline Phosphatase Ammonia Total Protein Albumin Triglycerides Nasal Screen MRSA (PCR) Blood Type Antibody Screen MTS Gel Crossmatch Blood Bank Comment Bld Prod Order Comment 06/30/18 07/01/18 07/01/18 23:25 07:30 07:30 WBC 6.1 D RBC 1.87 L Hgb 8.0 L Hct 24.2 L MCV 129.6 H D MCH 42.9 H MCHC 33.1 RDW 22.7 H Plt Count 29 L MPV 9.6 Prelim Diff (Auto) Slide review pending Neut % (Auto) 87.2 H Lymph % (Auto) 9.0 [place] % (Auto) 3.5 Eos % (Auto) 0.1 Baso % (Auto) 0.2 Neut # (Auto) 5.3 Lymph # (Auto) 0.5 L [place] # (Auto) 0.2 Eos # (Auto) 0.0 Baso # (Auto) 0.0 WBC Differential Manual diff final Seg Neuts % (Manual) 85 H Band Neuts % (Manual) 11 H Lymphocytes % (Manual) 2 L Monocytes % (Manual) 2 Metamyelocytes % (Man) Abs Neuts (Manual) 5.9 Nucleated RBCs/100 WBC 3 H Differential Comment . Toxic Granulation Platelet Estimate Low L Platelet Morphology Normal Dimorphic RBCs Pappenheimer Bodies Present H Hernandez-Ridgemark Bodies Present H PT 46.5 H INR 4.6 Fibrinogen Puncture Site Patient Temperature O2 Saturation ABG pH ABG pCO2 ABG pO2 ABG HCO3 ABG O2 Content ABG Base Excess ABG Methemoglobin Kody Test Hemoglobin Carboxyhemoglobin O2 Delivery Device Liter Flow Critical Value Sodium Potassium Chloride Carbon Dioxide Anion Gap BUN Creatinine Estimated GFR POC Glucose 137 H Random Glucose Lactic Acid Calcium Phosphorus Magnesium Total Bilirubin AST ALT Alkaline Phosphatase Ammonia Total Protein Albumin Triglycerides Nasal Screen MRSA (PCR) Blood Type Antibody Screen LiveData Blood Bank Comment Bld Prod Order Comment 07/01/18 07/01/18 07/01/18 07:30 10:02 14:07 WBC RBC Hgb Hct MCV MCH MCHC RDW Plt Count MPV Prelim Diff (Auto) Neut % (Auto) Lymph % (Auto) [place] % (Auto) Eos % (Auto) Baso % (Auto) Neut # (Auto) Lymph # (Auto) [place] # (Auto) Eos # (Auto) Baso # (Auto) WBC Differential Seg Neuts % (Manual) Band Neuts % (Manual) Lymphocytes % (Manual) Monocytes % (Manual) Metamyelocytes % (Man) Abs Neuts (Manual) Nucleated RBCs/100 WBC Differential Comment Toxic Granulation Platelet Estimate Platelet Morphology Dimorphic RBCs Pappenheimer Bodies Hernandez-Ridgemark Bodies PT INR Fibrinogen Puncture Site Patient Temperature O2 Saturation ABG pH ABG pCO2 ABG pO2 ABG HCO3 ABG O2 Content ABG Base Excess ABG Methemoglobin Kody Test Hemoglobin Carboxyhemoglobin O2 Delivery Device Liter Flow Critical Value Sodium 155 H Potassium 4.3 Chloride 123 H Carbon Dioxide 25.4 Anion Gap 7 BUN 53 H Creatinine 1.39 H Estimated GFR 53 L POC Glucose 126 H 110 Random Glucose 125 H Lactic Acid Calcium 9.3 Phosphorus Magnesium Total Bilirubin 17.1 H AST 47 H ALT 50 Alkaline Phosphatase 57 Ammonia Total Protein 4.7 L Albumin 1.5 L Triglycerides Nasal Screen MRSA (PCR) Blood Type Antibody Screen Perfect Earth Gel MEEPtch Blood Bank Comment Bld Prod Order Comment 07/01/18 07/01/18 07/01/18 17:21 18:00 18:00 WBC RBC Hgb 6.6 L* Hct 20.9 L* MCV MCH MCHC RDW Plt Count MPV Prelim Diff (Auto) Neut % (Auto) Lymph % (Auto) [place] % (Auto) Eos % (Auto) Baso % (Auto) Neut # (Auto) Lymph # (Auto) [place] # (Auto) Eos # (Auto) Baso # (Auto) WBC Differential Seg Neuts % (Manual) Band Neuts % (Manual) Lymphocytes % (Manual) Monocytes % (Manual) Metamyelocytes % (Man) Abs Neuts (Manual) Nucleated RBCs/100 WBC Differential Comment Toxic Granulation Platelet Estimate Platelet Morphology Dimorphic RBCs Pappenheimer Bodies Hernandez-Ridgemark Bodies PT INR Fibrinogen Puncture Site Patient Temperature O2 Saturation ABG pH ABG pCO2 ABG pO2 ABG HCO3 ABG O2 Content ABG Base Excess ABG Methemoglobin Kody Test Hemoglobin Carboxyhemoglobin O2 Delivery Device Liter Flow Critical Value Sodium 154 H Potassium 4.6 Chloride 124 H Carbon Dioxide 24.6 Anion Gap 5 BUN 57 H Creatinine 1.66 H Estimated GFR 43 L POC Glucose 99 Random Glucose 109 H Lactic Acid Calcium 9.6 Phosphorus 1.5 L Magnesium 2.1 Total Bilirubin 20.0 H AST 41 H ALT 45 Alkaline Phosphatase 47 Ammonia Total Protein 4.4 L Albumin 1.7 L Triglycerides 34 L Nasal Screen MRSA (PCR) Blood Type Antibody Screen MTS Gel Crossmatch Blood Bank Comment Bld Prod Order Comment 07/01/18 07/01/18 07/01/18 20:30 20:45 20:45 WBC RBC Hgb Hct MCV MCH MCHC RDW Plt Count MPV Prelim Diff (Auto) Neut % (Auto) Lymph % (Auto) [place] % (Auto) Eos % (Auto) Baso % (Auto) Neut # (Auto) Lymph # (Auto) [place] # (Auto) Eos # (Auto) Baso # (Auto) WBC Differential Seg Neuts % (Manual) Band Neuts % (Manual) Lymphocytes % (Manual) Monocytes % (Manual) Metamyelocytes % (Man) Abs Neuts (Manual) Nucleated RBCs/100 WBC Differential Comment Toxic Granulation Platelet Estimate Platelet Morphology Dimorphic RBCs Pappenheimer Bodies Hernandez-Ridgemark Bodies PT Greater than 180.0 H D INR Greater than 18.2 H* Fibrinogen Puncture Site Patient Temperature O2 Saturation ABG pH ABG pCO2 ABG pO2 ABG HCO3 ABG O2 Content ABG Base Excess ABG Methemoglobin Kody Test Hemoglobin Carboxyhemoglobin O2 Delivery Device Liter Flow Critical Value Sodium Potassium Chloride Carbon Dioxide Anion Gap BUN Creatinine Estimated GFR POC Glucose Random Glucose Lactic Acid Calcium Phosphorus 1.7 L Magnesium 2.1 Total Bilirubin AST ALT Alkaline Phosphatase Ammonia Total Protein Albumin Triglycerides Nasal Screen MRSA (PCR) Mrsa detected Blood Type Antibody Screen MTS Gel Crossmatch Blood Bank Comment Bld Prod Order Comment 07/01/18 07/01/18 07/01/18 20:45 20:45 20:45 WBC RBC Hgb Hct MCV MCH MCHC RDW Plt Count MPV Prelim Diff (Auto) Neut % (Auto) Lymph % (Auto) [place] % (Auto) Eos % (Auto) Baso % (Auto) Neut # (Auto) Lymph # (Auto) [place] # (Auto) Eos # (Auto) Baso # (Auto) WBC Differential Seg Neuts % (Manual) Band Neuts % (Manual) Lymphocytes % (Manual) Monocytes % (Manual) Metamyelocytes % (Man) Abs Neuts (Manual) Nucleated RBCs/100 WBC Differential Comment Toxic Granulation Platelet Estimate Platelet Morphology Dimorphic RBCs Pappenheimer Bodies Hernandez-Ridgemark Bodies PT INR Fibrinogen Puncture Site Patient Temperature O2 Saturation ABG pH ABG pCO2 ABG pO2 ABG HCO3 ABG O2 Content ABG Base Excess ABG Methemoglobin Kody Test Hemoglobin Carboxyhemoglobin O2 Delivery Device Liter Flow Critical Value Sodium Potassium Chloride Carbon Dioxide Anion Gap BUN Creatinine Estimated GFR POC Glucose Random Glucose Lactic Acid Calcium Phosphorus Magnesium Total Bilirubin AST ALT Alkaline Phosphatase Ammonia 26 Total Protein Albumin Triglycerides Nasal Screen MRSA (PCR) Blood Type O Negative Antibody Screen Negative MTS Gel Crossmatch See Detail Blood Bank Comment Bld Prod Order Comment 07/01/18 07/01/18 07/01/18 20:45 21:28 21:30 WBC RBC Hgb Hct MCV MCH MCHC RDW Plt Count MPV Prelim Diff (Auto) Neut % (Auto) Lymph % (Auto) [place] % (Auto) Eos % (Auto) Baso % (Auto) Neut # (Auto) Lymph # (Auto) [place] # (Auto) Eos # (Auto) Baso # (Auto) WBC Differential Seg Neuts % (Manual) Band Neuts % (Manual) Lymphocytes % (Manual) Monocytes % (Manual) Metamyelocytes % (Man) Abs Neuts (Manual) Nucleated RBCs/100 WBC Differential Comment Toxic Granulation Platelet Estimate Platelet Morphology Dimorphic RBCs Pappenheimer Bodies Hernandez-Ridgemark Bodies PT INR Fibrinogen Puncture Site Right radial Patient Temperature 98.6 O2 Saturation 96 ABG pH 7.41 ABG pCO2 36 L ABG pO2 104 ABG HCO3 22 ABG O2 Content 6.7 L ABG Base Excess -1.7 ABG Methemoglobin 0.0 Kody Test Present Hemoglobin 4.8 L* Carboxyhemoglobin 3.0 O2 Delivery Device Nasal cannula Liter Flow 1.50 Critical Value Yes Sodium Potassium Chloride Carbon Dioxide Anion Gap BUN Creatinine Estimated GFR POC Glucose Random Glucose Lactic Acid 3.9 H Calcium Phosphorus Magnesium Total Bilirubin AST ALT Alkaline Phosphatase Ammonia Total Protein Albumin Triglycerides Nasal Screen MRSA (PCR) Blood Type Antibody Screen MTS Gel Crossmatch Blood Bank Comment Bld Prod Order Comment 07/01/18 07/02/18 07/02/18 22:06 02:30 02:30 WBC 7.3 RBC 1.82 L Hgb 6.8 L* Hct 19.5 L* MCV 107.1 H D MCH 37.3 H MCHC 34.8 RDW 29.5 H D Plt Count 47 L D MPV 8.0 Prelim Diff (Auto) Neut % (Auto) Lymph % (Auto) [place] % (Auto) Eos % (Auto) Baso % (Auto) Neut # (Auto) Lymph # (Auto) [place] # (Auto) Eos # (Auto) Baso # (Auto) WBC Differential Seg Neuts % (Manual) Band Neuts % (Manual) Lymphocytes % (Manual) Monocytes % (Manual) Metamyelocytes % (Man) Abs Neuts (Manual) Nucleated RBCs/100 WBC Differential Comment Toxic Granulation Platelet Estimate Platelet Morphology Dimorphic RBCs Pappenheimer Bodies Hernandez-Ridgemark Bodies PT INR Fibrinogen Puncture Site Patient Temperature O2 Saturation ABG pH ABG pCO2 ABG pO2 ABG HCO3 ABG O2 Content ABG Base Excess ABG Methemoglobin Kody Test Hemoglobin Carboxyhemoglobin O2 Delivery Device Liter Flow Critical Value Sodium 150 H Potassium 4.1 Chloride 116 H D Carbon Dioxide 25.2 Anion Gap 9 BUN 58 H Creatinine 1.68 H Estimated GFR 42 L POC Glucose Random Glucose 132 H Lactic Acid Calcium 9.9 Phosphorus Magnesium 2.0 Total Bilirubin 19.4 H AST 34 ALT 38 Alkaline Phosphatase 61 Ammonia Total Protein 4.7 L Albumin 2.2 L Triglycerides Nasal Screen MRSA (PCR) Blood Type Antibody Screen MTS Gel Crossmatch Blood Bank Comment Bld Prod Order Comment 07/02/18 07/02/18 07/02/18 02:30 02:58 07:56 WBC 8.5 RBC 2.58 L Hgb 9.1 L D Hct 25.8 L MCV 99.7 D MCH 35.3 H MCHC 35.4 RDW 27.7 H Plt Count 31 L D MPV 8.3 Prelim Diff (Auto) Slide review pending Neut % (Auto) 89.5 H Lymph % (Auto) 7.6 L [place] % (Auto) 2.5 Eos % (Auto) 0.3 Baso % (Auto) 0.1 Neut # (Auto) 7.6 Lymph # (Auto) 0.7 L [place] # (Auto) 0.2 Eos # (Auto) 0.0 Baso # (Auto) 0.0 WBC Differential Manual diff final Seg Neuts % (Manual) 89 H Band Neuts % (Manual) 2 Lymphocytes % (Manual) 5 L Monocytes % (Manual) 4 Metamyelocytes % (Man) Abs Neuts (Manual) 7.7 Nucleated RBCs/100 WBC 2 H Differential Comment . Toxic Granulation Platelet Estimate Low L Platelet Morphology Normal Dimorphic RBCs Present H Pappenheimer Bodies Present H Hernandez-Ridgemark Bodies Present H PT 17.8 H D INR 1.8 Fibrinogen 125 L Puncture Site Patient Temperature O2 Saturation ABG pH ABG pCO2 ABG pO2 ABG HCO3 ABG O2 Content ABG Base Excess ABG Methemoglobin Kody Test Hemoglobin Carboxyhemoglobin O2 Delivery Device Liter Flow Critical Value Sodium Potassium Chloride Carbon Dioxide Anion Gap BUN Creatinine Estimated GFR POC Glucose Random Glucose Lactic Acid Calcium Phosphorus Magnesium Total Bilirubin AST ALT Alkaline Phosphatase Ammonia Total Protein Albumin Triglycerides Nasal Screen MRSA (PCR) Blood Type Antibody Screen MTS Gel Crossmatch See Detail Blood Bank Comment Bld Prod Order Comment 07/02/18 07/02/18 07/02/18 10:33 11:40 17:10 WBC RBC Hgb 9.0 L Hct 24.7 L MCV MCH MCHC RDW Plt Count MPV Prelim Diff (Auto) Neut % (Auto) Lymph % (Auto) [place] % (Auto) Eos % (Auto) Baso % (Auto) Neut # (Auto) Lymph # (Auto) [place] # (Auto) Eos # (Auto) Baso # (Auto) WBC Differential Seg Neuts % (Manual) Band Neuts % (Manual) Lymphocytes % (Manual) Monocytes % (Manual) Metamyelocytes % (Man) Abs Neuts (Manual) Nucleated RBCs/100 WBC Differential Comment Toxic Granulation Platelet Estimate Platelet Morphology Dimorphic RBCs Pappenheimer Bodies Hernandez-Ridgemark Bodies PT INR Fibrinogen Puncture Site Patient Temperature O2 Saturation ABG pH ABG pCO2 ABG pO2 ABG HCO3 ABG O2 Content ABG Base Excess ABG Methemoglobin Kody Test Hemoglobin Carboxyhemoglobin O2 Delivery Device Liter Flow Critical Value Sodium Potassium Chloride Carbon Dioxide Anion Gap BUN Creatinine Estimated GFR POC Glucose 110 90 Random Glucose Lactic Acid Calcium Phosphorus Magnesium Total Bilirubin AST ALT Alkaline Phosphatase Ammonia Total Protein Albumin Triglycerides Nasal Screen MRSA (PCR) Blood Type Antibody Screen LiveData Blood Bank Comment Bld Prod Order Comment 07/02/18 07/02/18 07/03/18 18:35 23:43 00:10 WBC RBC Hgb 8.2 L 8.5 L Hct 23.5 L 24.6 L MCV MCH MCHC RDW Plt Count MPV Prelim Diff (Auto) Neut % (Auto) Lymph % (Auto) [place] % (Auto) Eos % (Auto) Baso % (Auto) Neut # (Auto) Lymph # (Auto) [place] # (Auto) Eos # (Auto) Baso # (Auto) WBC Differential Seg Neuts % (Manual) Band Neuts % (Manual) Lymphocytes % (Manual) Monocytes % (Manual) Metamyelocytes % (Man) Abs Neuts (Manual) Nucleated RBCs/100 WBC Differential Comment Toxic Granulation Platelet Estimate Platelet Morphology Dimorphic RBCs Pappenheimer Bodies Hernandez-Ridgemark Bodies PT INR Fibrinogen Puncture Site Patient Temperature O2 Saturation ABG pH ABG pCO2 ABG pO2 ABG HCO3 ABG O2 Content ABG Base Excess ABG Methemoglobin Kody Test Hemoglobin Carboxyhemoglobin O2 Delivery Device Liter Flow Critical Value Sodium Potassium Chloride Carbon Dioxide Anion Gap BUN Creatinine Estimated GFR POC Glucose 74 Random Glucose Lactic Acid Calcium Phosphorus Magnesium Total Bilirubin AST ALT Alkaline Phosphatase Ammonia Total Protein Albumin Triglycerides Nasal Screen MRSA (PCR) Blood Type Antibody Screen LiveData Blood Bank Comment Bld Prod Order Comment 07/03/18 07/03/18 07/03/18 05:15 07:12 10:07 WBC RBC Hgb 9.1 L Hct 25.4 L MCV MCH MCHC RDW Plt Count MPV Prelim Diff (Auto) Neut % (Auto) Lymph % (Auto) [place] % (Auto) Eos % (Auto) Baso % (Auto) Neut # (Auto) Lymph # (Auto) [place] # (Auto) Eos # (Auto) Baso # (Auto) WBC Differential Seg Neuts % (Manual) Band Neuts % (Manual) Lymphocytes % (Manual) Monocytes % (Manual) Metamyelocytes % (Man) Abs Neuts (Manual) Nucleated RBCs/100 WBC Differential Comment Toxic Granulation Platelet Estimate Platelet Morphology Dimorphic RBCs Pappenheimer Bodies Hernandez-Ridgemark Bodies PT INR Fibrinogen Puncture Site Patient Temperature O2 Saturation ABG pH ABG pCO2 ABG pO2 ABG HCO3 ABG O2 Content ABG Base Excess ABG Methemoglobin Kody Test Hemoglobin Carboxyhemoglobin O2 Delivery Device Liter Flow Critical Value Sodium Potassium Chloride Carbon Dioxide Anion Gap BUN Creatinine Estimated GFR POC Glucose 84 Random Glucose Lactic Acid Calcium Phosphorus Magnesium Total Bilirubin AST ALT Alkaline Phosphatase Ammonia Total Protein Albumin Triglycerides Nasal Screen MRSA (PCR) Blood Type Antibody Screen MTS Gel Crossmatch Blood Bank Comment Bld Prod Order Comment Result Diagrams: 07/03/18 05:15 07/02/18 02:30 Microbiology: Microbiology 07/01/18 18:00 Aerobic Blood Culture - Preliminary Blood - Peripheral No growth in 2 days Anaerobic Blood Culture - Preliminary No growth in 2 days 07/01/18 17:50 Aerobic Blood Culture - Preliminary Blood - Peripheral No growth in 2 days Anaerobic Blood Culture - Preliminary No growth in 2 days 07/01/18 14:28 Stool Occult Blood (SHARI) - Final Stool Hemoccult positive 06/28/18 00:00 Urine Culture - Final Catheterized Urine Shante glabrata Assessment and Plan - Disease Oriented Problem List (1) Hepatitis B infection (2) Staghorn renal calculus (3) Acute UTI (4) Liver cirrhosis (5) Hep C w/o coma, chronic Pertinent Non-Medical Issues: Psychosocial: Patient indicates originally from [place]. Did live in [place] for about a year but has since been in [place] for several years. 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 Has 7 siblings though does not remain in close communication with them. Spiritual: [employer], no particular affiliation. Requests dietitian teaching visit, dietitian teaching notified. Legal:Patient today mildly encephalopathic. Ammonia level elevated. Partially oriented. Appears capacitated enough to participate some in decision making but does not have full insight. He is able to designate healthcare surrogate names his brother Arley Valadez as someone he would trust to make decisions in an emergency. Would recommend shared decision making at this point given his fluctuating mental status. Ethical issues impacting care: No ethical issues identified Important Contacts: Brother Arley Valadez (Brett) in [facility] #[phone] XXX OLD# XXX [phone] Brother ARLEY in [facility] [phone] [facility] where Sister Sruthi is incarcerated [phone]/ Lieutenant Adair . Prognosis: Patient is a poor historian, full medical history not readily available. Appears he has had some component of chronic liver disease, now with superimposed acute liver dysfunction. Hepatitis B, hepatitis C positive. Initiated on treatment here. Encephalopathic. Bilirubin trending up. Possible current acute disease process may be stable with ongoing aggressive treatment w antiviral, though he remains high risk for ongoing if liver disease does not stabilize or respond to treatment. He was stable for a few weeks of time here however he has had clinical deterioration in the past week, more pronounced in the past several days. Bilirubin uptrending, liver functions no longer elevating. Some hypotension . High risk for continued deterioration and . appropriate for hospice. Code Status: Full Code Plan: * Legal decision maker:Patient today mildly encephalopathic. Ammonia level elevated. Partially oriented. Appears capacitated enough to participate some in decision making but does not have full insight. He is able to designate healthcare surrogate names his brother Arley Valadez as someone he would trust to make decisions in an emergency. Would recommend shared decision making at this point given his fluctuating mental status.Brothers have previously indicated that they would be unable to help the patient physically or with housing for DC however they would remain available over the phone to assist him as needed. * Goals: Per initial interaction: patient goals stated to continue treatment he "wants to live ". He has limited insight and understanding at this time. Designated his brother Fortunato as healthcare surrogate. I have spoken at length with this brother today. He is in agreement to serve as HCS. Update and review of conditions provided today to brother. He wishes to talk to other family members, process information. No decisions made today. He plans to talk further with palliative tomorrow 05/12/18. He is unable to care for patient himself he [place] of state. He feels patient will likely need placement. Patient just moved here from [place] possibly in March at that time he had Medicaid coverage in [place]. * 07/02 goals remain aggressive, continue available treatment to keep pt alive- - additional family to be coming in town in the coming days to see pt, may consider de-escalation once all family has seen him ( most of the family has not been aware pt in hospital/pt has been estranged) Arley also informs me that correction facility will not be allowing pt sister Sruthi schroeder to see him. he has palliative contact information. * CODE STATUS: Full code * SYMPTOMS: --Pain-has had some ongoing pain to right flank/abdomen indicates this was new onset at time of presentation to [facility]. He has previously endorsed good relief with use of prn--indicates he had not previously been on any chronic opiates for chronic pain syndromes. Oxycodone 5 mg had been effective a few times per day. Patient now with increased lethargy /obtunded over the past week, worsening encephalopathy. Cautious use of opiates or benzos given deteriorating mental status. --Encephalopathy-patient with fluctuating mental status, hepatitis, bilirubin trending up, ammonia level also up and down during hospitalization. Bilirubin at some point stopped trending up; however uptrending past few days, now 19. GI following, reconsulted RE suspected variceal bleed. Poss EGD today . Was on PO On lactulose, rifaximin . Has been receiving hepatitis treatments. Previously oriented though forgetful. MELD 36. -- dyspnea/dysphagia- more lethargic, high risk for aspiration/respiratory decline 2/2 to neurological status. Now NPO. * Palliative care will continue to follow during hospital course as condition evolves, to assist patient/decision-maker with understanding of medical conditions, weighing benefits/burdens of treatment options, for clarification of goals of treatment. Additionally will assist with any symptoms of palliative concern Attestation Attestation: To help prompt me to consider important information that might be impacting today's encounter and assessment, information from prior notes written by myself or my colleagues may have been "brought forward" into today's note. My signature on this note, however, is an attestation that I personally performed the exam, history, and/or decision-making noted today, and, unless otherwise indicated, the interactions with patient, family, and staff as well as the review of records all occurred today. I also attest that the listed assessment and stated plan reflect my best clinical judgment today based on the combination of historical information, prior notes, and today's exam/ interactions. When time spent is documented, it refers only to time spent today by the signer, or if indicated, combined time spent today by collaborating physician/nurse practitioner.
--- NOTE | 2018-07-03 11:46 | P.PNGI ---
Subjective Interval history: Lethargic Opens eyes to voice <Lloyd,Kely - Last Filed: 07/03/18 11:40> Physical Exam Vital signs: Vital Signs 07/02/18 11:45 07/02/18 12:00 07/02/18 12:15 Temperature 98.6 F Pulse Rate 89 89 88 Respiratory Rate 12 12 12 Blood Pressure 111/64 102/57 L 100/57 L Pulse Oximetry 98 98 99 07/02/18 12:30 07/02/18 12:45 07/02/18 13:00 Temperature Pulse Rate 87 86 86 Respiratory Rate 14 14 14 Blood Pressure 106/58 L 103/58 L 110/54 L Pulse Oximetry 98 98 98 07/02/18 13:15 07/02/18 13:30 07/02/18 13:45 Temperature Pulse Rate 87 87 86 Respiratory Rate 11 L 13 13 Blood Pressure 124/61 117/55 L 112/57 L Pulse Oximetry 98 99 98 07/02/18 14:00 07/02/18 14:15 07/02/18 14:30 Temperature Pulse Rate 88 89 89 Respiratory Rate 13 14 14 Blood Pressure 117/57 L 114/57 L 95/54 L Pulse Oximetry 98 98 98 07/02/18 14:45 07/02/18 15:00 07/02/18 15:15 Temperature Pulse Rate 86 86 86 Respiratory Rate 11 L 11 L 13 Blood Pressure 97/53 L 94/52 L 93/50 L Pulse Oximetry 98 99 98 07/02/18 15:30 07/02/18 15:45 07/02/18 16:00 Temperature 98.7 F Pulse Rate 85 88 90 Respiratory Rate 12 13 13 Blood Pressure 103/50 L 102/55 L 100/56 L Pulse Oximetry 99 98 98 07/02/18 16:15 07/02/18 16:30 07/02/18 16:45 Temperature Pulse Rate 93 H 93 H 92 H Respiratory Rate 18 16 27 H Blood Pressure 100/56 L 104/54 L 95/50 L Pulse Oximetry 97 98 98 07/02/18 17:00 07/02/18 17:15 07/02/18 17:30 Temperature Pulse Rate 92 H 93 H 93 H Respiratory Rate 34 H 32 H 34 H Blood Pressure 96/52 L 97/53 L 96/55 L Pulse Oximetry 98 98 99 07/02/18 17:45 07/02/18 18:00 07/02/18 20:00 Temperature Pulse Rate 90 87 88 Respiratory Rate 26 H 28 H 24 Blood Pressure 91/55 L 89/54 L Pulse Oximetry 99 99 97 07/02/18 20:30 07/02/18 20:45 07/02/18 21:00 Temperature 98.2 F Pulse Rate 85 86 Respiratory Rate 23 23 Blood Pressure 87/51 L 91/50 L 82/46 L Pulse Oximetry 97 07/02/18 22:00 07/02/18 23:00 07/03/18 00:00 Temperature 98 F Pulse Rate 84 85 89 Respiratory Rate 14 34 H 32 H Blood Pressure 92/52 L 94/57 L 107/60 Pulse Oximetry 98 98 96 07/03/18 01:00 07/03/18 01:45 07/03/18 02:00 Temperature Pulse Rate 90 89 90 Respiratory Rate 40 H 33 H 40 H Blood Pressure 101/59 L 106/58 L 93/55 L Pulse Oximetry 96 96 96 07/03/18 03:00 07/03/18 03:30 07/03/18 04:00 Temperature 98 F Pulse Rate 90 92 H 93 H Respiratory Rate 22 33 H 24 Blood Pressure 110/60 109/56 L 91/58 L Pulse Oximetry 96 95 96 07/03/18 04:15 07/03/18 04:30 07/03/18 05:00 Temperature Pulse Rate 104 H 95 H 93 H Respiratory Rate 24 26 H 25 H Blood Pressure 92/60 L 92/61 L 109/65 Pulse Oximetry 94 L 96 96 07/03/18 05:15 07/03/18 05:30 07/03/18 05:45 Temperature Pulse Rate 95 H 95 H 96 H Respiratory Rate 20 19 20 Blood Pressure 121/56 L 125/55 L 110/58 L Pulse Oximetry 96 96 96 07/03/18 06:00 07/03/18 06:15 07/03/18 06:30 Temperature Pulse Rate 101 H 99 H 98 H Respiratory Rate 22 24 19 Blood Pressure 111/65 114/66 122/60 Pulse Oximetry 96 96 95 07/03/18 06:45 Temperature Pulse Rate 96 H Respiratory Rate 20 Blood Pressure 111/55 L Pulse Oximetry 96 Intake & Output 07/02/18 07/03/18 07/03/18 18:59 06:59 18:59 Intake Total 350 / 350 1100 / 1100 Output Total 500 / 500 900 / 900 Balance -150 / -150 200 / 200 Weight 78.1 kg Intake: IV 350 / 350 1100 / 1100 Protonix Inj 80 MG In NS Inj 200 / 200 100 / 100 100 ML @ 10 mls/hr IV.CONT Q10H NIR[facility] Rx#:[id number] Flexbumin 25% Inj 50 ML @ 60 150 / 150 mls/hr IV.SIG TID NIRAJ Rx#: [id number] LR 1000 mL Inj 1,000 ML @ 75 1000 / 1000 mls/hr IV.SIG .[id number] NIRAJ Rx#: [id number] Output: Urine Amount (Catheter) 500 / 500 900 / 900 Indwelling Urethral Catheter 500 / 500 900 / 900 Other: Date of Last Bowel Movement 07/02/18 07/03/18 # Incontinent Bowel Movements 1 - Constitutional no acute distress, chronically ill appearing - Routine HEENT Exam Head: Present: normocephalic Eye: Present: conjunctival icterus - Routine Respiratory Exam Absent: accessory muscle use - Routine Cardiovascular Exam Present: RRR - Routine Abdominal Exam Present: soft, normoactive bowel sounds. Absent: tenderness, guarding, firm - Routine Skin Exam Present: dry, warm, jaundice - Urinary Catheter Management Condom Cath placed during this visit: yes Reason for continuing: Hourly intake/output Insertion date: 07/02/18 Indwelling Urethral Catheter Cath placed during this visit: yes Reason for continuing: Hourly intake/output Insertion date: 07/02/18 <Kely Lloyd - Last Filed: 07/03/18 11:40> Vital signs: Vital Signs 07/02/18 12:30 07/02/18 12:45 07/02/18 13:00 Temperature Pulse Rate 87 86 86 Respiratory Rate 14 14 14 Blood Pressure 106/58 L 103/58 L 110/54 L Pulse Oximetry 98 98 98 07/02/18 13:15 07/02/18 13:30 07/02/18 13:45 Temperature Pulse Rate 87 87 86 Respiratory Rate 11 L 13 13 Blood Pressure 124/61 117/55 L 112/57 L Pulse Oximetry 98 99 98 07/02/18 14:00 07/02/18 14:15 07/02/18 14:30 Temperature Pulse Rate 88 89 89 Respiratory Rate 13 14 14 Blood Pressure 117/57 L 114/57 L 95/54 L Pulse Oximetry 98 98 98 07/02/18 14:45 07/02/18 15:00 07/02/18 15:15 Temperature Pulse Rate 86 86 86 Respiratory Rate 11 L 11 L 13 Blood Pressure 97/53 L 94/52 L 93/50 L Pulse Oximetry 98 99 98 07/02/18 15:30 07/02/18 15:45 07/02/18 16:00 Temperature 98.7 F Pulse Rate 85 88 90 Respiratory Rate 12 13 13 Blood Pressure 103/50 L 102/55 L 100/56 L Pulse Oximetry 99 98 98 07/02/18 16:15 07/02/18 16:30 07/02/18 16:45 Temperature Pulse Rate 93 H 93 H 92 H Respiratory Rate 18 16 27 H Blood Pressure 100/56 L 104/54 L 95/50 L Pulse Oximetry 97 98 98 07/02/18 17:00 07/02/18 17:15 07/02/18 17:30 Temperature Pulse Rate 92 H 93 H 93 H Respiratory Rate 34 H 32 H 34 H Blood Pressure 96/52 L 97/53 L 96/55 L Pulse Oximetry 98 98 99 07/02/18 17:45 07/02/18 18:00 07/02/18 20:00 Temperature Pulse Rate 90 87 88 Respiratory Rate 26 H 28 H 24 Blood Pressure 91/55 L 89/54 L Pulse Oximetry 99 99 97 07/02/18 20:30 07/02/18 20:45 07/02/18 21:00 Temperature 98.2 F Pulse Rate 85 86 Respiratory Rate 23 23 Blood Pressure 87/51 L 91/50 L 82/46 L Pulse Oximetry 97 07/02/18 22:00 07/02/18 23:00 07/03/18 00:00 Temperature 98 F Pulse Rate 84 85 89 Respiratory Rate 14 34 H 32 H Blood Pressure 92/52 L 94/57 L 107/60 Pulse Oximetry 98 98 96 07/03/18 01:00 07/03/18 01:45 07/03/18 02:00 Temperature Pulse Rate 90 89 90 Respiratory Rate 40 H 33 H 40 H Blood Pressure 101/59 L 106/58 L 93/55 L Pulse Oximetry 96 96 96 07/03/18 03:00 07/03/18 03:30 07/03/18 04:00 Temperature 98 F Pulse Rate 90 92 H 93 H Respiratory Rate 22 33 H 24 Blood Pressure 110/60 109/56 L 91/58 L Pulse Oximetry 96 95 96 07/03/18 04:15 07/03/18 04:30 07/03/18 05:00 Temperature Pulse Rate 104 H 95 H 93 H Respiratory Rate 24 26 H 25 H Blood Pressure 92/60 L 92/61 L 109/65 Pulse Oximetry 94 L 96 96 07/03/18 05:15 07/03/18 05:30 07/03/18 05:45 Temperature Pulse Rate 95 H 95 H 96 H Respiratory Rate 20 19 20 Blood Pressure 121/56 L 125/55 L 110/58 L Pulse Oximetry 96 96 96 07/03/18 06:00 07/03/18 06:15 07/03/18 06:30 Temperature Pulse Rate 101 H 99 H 98 H Respiratory Rate 22 24 19 Blood Pressure 111/65 114/66 122/60 Pulse Oximetry 96 96 95 07/03/18 06:45 07/03/18 07:00 07/03/18 07:15 Temperature Pulse Rate 96 H 95 H 96 H Respiratory Rate 20 19 25 H Blood Pressure 111/55 L 108/62 104/61 Pulse Oximetry 96 96 95 07/03/18 07:30 07/03/18 07:45 07/03/18 08:00 Temperature 98.0 F Pulse Rate 96 H 94 H 93 H Respiratory Rate 20 20 19 Blood Pressure 107/60 103/62 111/57 L Pulse Oximetry 96 95 95 07/03/18 08:15 07/03/18 08:30 07/03/18 08:45 Temperature Pulse Rate 91 H 91 H 93 H Respiratory Rate 20 21 21 Blood Pressure 117/55 L 103/55 L 101/65 Pulse Oximetry 96 95 96 07/03/18 09:00 07/03/18 09:15 07/03/18 09:30 Temperature Pulse Rate 95 H 93 H 91 H Respiratory Rate 22 21 19 Blood Pressure 111/66 108/59 L 108/68 Pulse Oximetry 96 96 96 07/03/18 09:45 07/03/18 10:00 07/03/18 10:15 Temperature Pulse Rate 91 H 94 H 92 H Respiratory Rate 23 20 28 H Blood Pressure 110/59 L 120/56 L 96/59 L Pulse Oximetry 96 96 96 07/03/18 10:30 07/03/18 10:38 07/03/18 10:45 Temperature Pulse Rate 96 H 104 H 99 H Respiratory Rate 31 H 20 15 Blood Pressure 130/58 L 111/59 L Pulse Oximetry 95 95 95 07/03/18 11:00 07/03/18 11:15 07/03/18 11:30 Temperature Pulse Rate 94 H 95 H 92 H Respiratory Rate 18 15 19 Blood Pressure 122/59 L 118/56 L 109/59 L Pulse Oximetry 97 97 98 07/03/18 11:45 07/03/18 12:00 Temperature 97.8 F Pulse Rate 93 H 92 H Respiratory Rate 14 15 Blood Pressure 118/58 L 118/59 L Pulse Oximetry 98 98 Intake & Output 07/02/18 07/03/18 07/03/18 18:59 06:59 18:59 Intake Total 350 / 350 1100 / 1100 200 / 200 Output Total 500 / 500 900 / 900 Balance -150 / -150 200 / 200 200 / 200 Weight 78.1 kg Intake: IV 350 / 350 1100 / 1100 200 / 200 Protonix Inj 80 MG In NS Inj 200 / 200 100 / 100 100 / 100 100 ML @ 10 mls/hr IV.CONT Q10H NIRAJ Rx#:[id number] Flexbumin 25% Inj 50 ML @ 60 150 / 150 50 / 50 mls/hr IV.SIG TID NIRAJ Rx#: [id number] Diflucan 100 mg Premix Bag 50 50 / 50 ML @ 50 mls/hr IV.SIG Q24H NIRAJ Rx#:[id number] LR 1000 mL Inj 1,000 ML @ 75 1000 / 1000 mls/hr IV.SIG .[id number] [facility] Rx#: [id number] Intake (Blood Product) Amt 0 / 0 Plt Pheresis A Leukoreduced 0 / 0 Unit [id number] Output: Urine Amount (Catheter) 500 / 500 900 / 900 Indwelling Urethral Catheter 500 / 500 900 / 900 Other: Date of Last Bowel Movement 07/02/18 07/03/18 07/03/18 # Incontinent Bowel Movements 1 - Urinary Catheter Management Condom Cath placed during this visit: no Indwelling Urethral Catheter Cath placed during this visit: no <Becca Hernandez - Last Filed: 07/03/18 12:18> Results - Labs CBC & Chem 7: 07/03/18 05:15 07/02/18 02:30 Laboratory Results - last 24 hr 07/02/18 07/02/18 07/02/18 11:40 17:10 18:35 Hgb 9.0 L 8.2 L Hct 24.7 L 23.5 L POC Glucose 90 Bld Prod Order Comment 07/02/18 07/03/18 07/03/18 23:43 00:10 05:15 Hgb 8.5 L 9.1 L Hct 24.6 L 25.4 L POC Glucose 74 Bld Prod Order Comment 07/03/18 07/03/18 07:12 10:07 Hgb Hct POC Glucose 84 Bld Prod Order Comment Microbiology 07/01/18 18:00 Blood - Peripheral Aerobic Blood Culture - Preliminary No growth in 2 days 07/01/18 18:00 Blood - Peripheral Anaerobic Blood Culture - Preliminary No growth in 2 days 07/01/18 17:50 Blood - Peripheral Aerobic Blood Culture - Preliminary No growth in 2 days 07/01/18 17:50 Blood - Peripheral Anaerobic Blood Culture - Preliminary No growth in 2 days <Kely Lloyd - Last Filed: 07/03/18 11:40> - Labs CBC & Chem 7: 07/03/18 05:15 07/02/18 02:30 Laboratory Results - last 24 hr 07/02/18 07/02/18 07/02/18 17:10 18:35 23:43 Hgb 8.2 L Hct 23.5 L POC Glucose 90 74 Bld Prod Order Comment 07/03/18 07/03/18 07/03/18 00:10 05:15 07:12 Hgb 8.5 L 9.1 L Hct 24.6 L 25.4 L POC Glucose 84 Bld Prod Order Comment 07/03/18 10:07 Hgb Hct POC Glucose Bld Prod Order Comment Microbiology 07/01/18 18:00 Blood - Peripheral Aerobic Blood Culture - Preliminary No growth in 2 days 07/01/18 18:00 Blood - Peripheral Anaerobic Blood Culture - Preliminary No growth in 2 days 07/01/18 17:50 Blood - Peripheral Aerobic Blood Culture - Preliminary No growth in 2 days 07/01/18 17:50 Blood - Peripheral Anaerobic Blood Culture - Preliminary No growth in 2 days <Becca Hernandez - Last Filed: 07/03/18 12:18> Assessment and Plan (1) Liver cirrhosis Status: Acute Code(s): K74.60 - Unspecified cirrhosis of liver (2) Hep C w/o coma, chronic Status: Chronic Code(s): B18.2 - Chronic viral hepatitis C - Plan Initial consult 05/07/18-Liver cirrhosis-most recent labs 05/06/2018 revealed total bilirubin of 7.6 AST of 300 ALT 157 alkaline phosphatase 123 ammonia level 136 albumin 1.6. Discussed liver function with the patient who is aware of worsening values. We will continue to monitor. Chronic hepatitis C/acute hepatitis B-patient with history of chronic hepatitis C currently restarted on antiviral for same (Tenofovir). Patient denies any known reason for pablo acute hepatitis B. Discussed precautions with patient as well as risk factors and he verbalizes understanding. On 05/08/2018 patient appears to have slow gradual decline as far as his mental status and some mild to moderate anxiety today. Some nausea and vomiting at lunchtime acute onset. Discussed again with patient his liver disease and the need for medical management even when he is out of the hospital. Current ammonia level 95 today albumin 1.5, bilirubin 7.8, AST 260 ALT 145, alkaline phosphatase 119 PT/INR 1.8. Noted mild trend of bilirubin increasing but liver enzymes mild decrease. Discuss with patient his support system when getting out of the hospital and states that he is supposed to talk to case management sometime today. States he does have a brother who does not seem to understand how serious his condition is which worries him as far. Palliative care team on board which might could assist with contact to brother if patient agrees. According to the record patient will be going home with a female friend who will assist him. States last bowel movement this past p.m. so questionable effectiveness of lactulose. Overall poor prognosis and general decline noted. Due to patient's portal hypertensive gastropathy, added further medication management to his regimen Encephalopathy appears to be worsened today. Patient is now on VIREAD 06/30/18, Reconsulted for possible PEG. Labs reviewed. Low platelet count, 26. Spoke with niece in , explained patient is high risk for hemorrhage and unable to receive PEG placement. Supportive care given. Discussed with Hospitalist and Dr. Hernandez. No plans for any procedures at this time. Poor prognosis 07/02/2018 GI asked to see patient due to possible lower GI bleeding-hepatitis C with liver cirrhosis -07/01/2018 patient noted to be hypotensive with melena stools -07/01/2018 hemoglobin 6.8 hematocrit 19.5, posttransfusion hemoglobin 9.1 hematocrit 25.8 INR 1.8 -Total bilirubin 19.4 AST 34 ALT 38 alk phos 61 ammonia level 26 -Patient received 2 units packed RBCs, 2 units fresh frozen plasma, 2 units platelets. -Currently patient on octreotide drip, pantoprazole infusion, K-Phos at 42, lactated Ringer's at 75 mL's per hour and Levophed vasopressor at 6 mcg. -BP 104/57, sinus rhythm 85, 4 L nasal cannula with saturation of 99% 07/03/2018 Hemoglobin 9.1 hematocrit 25.4 Patiently on Levophed at 4 mcg 98% O2 saturation on 4 L nasal cannula No obvious bleeding noted or reported, likely variceal Octeotride drip, pantoprazole infusion. Plan -N.p.o. -GI bleed likely variceal -EGD today -Obtain consent for EGD -2 units platelets ordered for infusion -Monitor for bleeding -Transfuse as needed -Continue IV Protonix -Continue octreotide -Monitor hemoglobin and hematocrit closely -Monitor coagulation studies closely -Supportive care -Plan of care as per critical care medicine Patient was seen per myself and Dr. Hernandez, note written on his behalf. - Attending Attestation Dr. hernandez <Kely Lloyd - Last Filed: 07/03/18 11:40> (1) Liver cirrhosis Status: Acute Code(s): K74.60 - Unspecified cirrhosis of liver (2) Hep C w/o coma, chronic Status: Chronic Code(s): B18.2 - Chronic viral hepatitis C - Attending Attestation Agree with the plan as above, discussed with primary team and agree with the fact that he is relatively stable. Will need Plat. transfusion to keep counts more the 50K. Further recommendations to follow. <Becca Hernandez - Last Filed: 07/03/18 12:18> <Kely Lloyd - Last Filed: 07/03/18 11:40> (1) Liver cirrhosis Qualifiers: Hepatic cirrhosis type: other cirrhosis Qualified Code(s): K74.69 - Other cirrhosis of liver <Becca Hernandez - Last Filed: 07/03/18 12:18> (1) Liver cirrhosis Qualifiers: Hepatic cirrhosis type: other cirrhosis Qualified Code(s): K74.69 - Other cirrhosis of liver
[2018-07-03] MEDS: Ferrous Sulfate 325 MG Tablet PO SCH ×2 (12:13→17:52)
[2018-07-03 13:36] LABS: Hematocrit 23.9 % (39.0-51.0); Hemoglobin 8.4 gm/dL (13.0-17.0); Mean Corpuscular HGB Conc 35.3 % (32.0-36.0); Mean Corpuscular Hemoglobin 36.1 pg (27.0-34.0); Mean Corpuscular Volume 102.5 fL (80.0-100.0); Mean Platelet Volume 7.6 fL (7.0-11.0); Platelet Count 72 th/mm3 (150-450); Red Blood Count 2.33 mil/mm3 (4.50-5.90)
[2018-07-03 13:49] LABS: INR 2.3 Ratio; Prothrombin Time 23.7 sec (9.8-11.6)
[2018-07-03 14:08] LABS: Calcium 9.3 mg/dL (8.5-10.1); Carbon Dioxide 25.8 meq/L (21.0-32.0); Potassium 3.9 meq/L (3.5-5.1)
--- NOTE | 2018-07-03 14:13 | GIPROC ---
[facility] [address] [facility]. [facility], [address] EGD PROCEDURE REPORT EXAM DATE: 07/03/2018 PATIENT NAME: Feliberto Valadez MR #: [id number] BIRTHDATE: 1960 ATTENDING: Becca Bonner MD ORDER #: [id number] CLINICAL MOLECULAR GENETICIST: Rosalinda Obrien and Emilie Mao STATUS: inpatient INDICATIONS: The patient is a 58 yr old male here for an EGD due to melena PROCEDURE PERFORMED: EGD w/ control of bleeding MEDICATIONS: Per Anesthesia and None. TOPICAL ANESTHETIC: none CONSENT: The patient understands the risks and benefits of the procedure and understands that these risks include, but are not limited to: sedation, allergic reaction, infection, perforation and/or bleeding. Alternative means of evaluation and treatment include, among others: physical exam, x-rays, and/or surgical intervention. The patient elects to proceed with this endoscopic procedure. medical equipment was checked for proper function. Hand hygiene and appropriate measures for infection prevention was taken. After the risks, benefits and alternatives of the procedure were thoroughly explained, Informed consent was verified, confirmed and timeout was successfully executed by the treatment team. The patient was anesthetized with topical anesthesia and the Pentax [id number] endoscope was introduced through the mouth and advanced to the second portion of the duodenum. Retroflexed views revealed Large amount of old blood. The gastroscope was then slowly withdrawn and removed. ESOPHAGUS: The esophagus was otherwise normal. STOMACH: Large amoung of old blood, total suctioned through the scope around 300 cc. There was acute severe, erosive and ulcerative gastritis in the entire examined stomach. DUODENUM: A large non-bleeding non-bleeding, round and deep ulcer with surrounding edema and a visible vessel was found in the 2nd part of the duodenum. Complete hemostasis was achieved by placing a single Cook instinct hemoclip on the bleeding site(s). ADVERSE EVENTS: There were no complications. IMPRESSIONS: 1. The esophagus was otherwise normal 2. Large amoung of old blood, total suctioned through the scope around 300 cc 3. There was acute gastritis in the entire examined stomach 4. Large non-bleeding ulcer was found in the 2nd part of the duodenum; Complete hemostasis was achieved by placing a single hemoclip on the bleeding site(s) 5. Retroflexed views revealed Large amount of old blood. 6. NG tube placed with endoscopic guidance . RECOMMENDATIONS: 1. Continue PPI 2. Avoid NSAIDS 3. Begin feeding tomorrow, clears for todat 4. Discontinue Octreotide PATIENT CONDITION: stable DISPOSITION: Observation REPEAT EXAM: Return 2 months EGD Becca Bonner MD eSigned: Becca Bonner MD 07/03/2018 2:12 PM cc: PATIENT NAME: Feliberto Valadez MR#: [id number]
--- NOTE | 2018-07-03 14:50 | P.PNPAL ---
Reason for Visit Reason for visit: a. To assist with evaluation and management of symptoms including: Encephalopathy, pain b. To assist medical decision maker(s) with: better understanding of current medical conditions; weighing benefits/burdens of medical treatment options; making medical treatment decisions. Subjective Subjective/Interval History: This 58-year-old patient who was transferred here to [facility] from [facility] in [place] on 04/29/18. There he had gone for evaluation of right-sided abdominal pain on 04/28. He also presented with constipation and dark urine. Abdominal CT indicative of portal hypertension changes, cirrhotic liver, and 3.5 cm staghorn calculus right kidney with possible mild duodenitis and cholelithiasis. + pancytopenia, + UTI - started on zosyn IV. He was transferred to [facility] due to staghorn calculus w concomitant infection, and requiring a urologist evaluation. also noted to have chronic hep C, cirrhosis, stable Neuropsychiatry prev consulted to assist with determining if patient has capacity to make medical decisions. He had previously been deemed capacitated to make medical decisions however also was recommended for support outside of the hospital upon discharge due to cognitive deficits. . Seen today to follow-up on comfort, goals with patient and/or decision makers. Dual visit w Kristina Woody APRN. remains in ICU . s/p multiple transfusions yesterday. on norepinephrine for hypotension. suspected variceal bleed, started on octreotide drip, GI reconsulted-- GI recommends supportive care/transfuse as needed, consider EGD when clinically stable, poor prognosis. H&H stable today 9.1/25.4, no new coags or chemistry. H&H later rechecked 8.4/23.9; transfused 2 units RBC, planned for EGD after. 1430 Seen in room just after EGD completed, nursing providing juana care etc. Small area open skin breakdown to coccyx, 2 cm. Nursing reports EGD w findings of duodenal bleeding which was clipped. NGT also placed by GI during procedure. reported tolerated all well. No pressors currently. Remains encephalopathic per nursing, minimally responsive, not purposeful or communicative. Jaundiced. Very faint weak groan at times. Does not open eyes. Does not follow commands or verbalize for me. Snoring respirations. NGT noted, small amt red drainage in tubing. Discussed with medical attending , nurse. Family/Friend Interactions: following exam, call to [facility] brother Arley. VM left. . Advance Directives Advance Directives Date on File: 05/07/18 Health Care Surrogate Name and Number: Names brother Arley Valadez (brett) Objective Vital Signs: Vital Signs 07/02/18 15:00 07/02/18 15:15 07/02/18 15:30 Temperature Pulse Rate 86 86 85 Respiratory Rate 11 L 13 12 Blood Pressure 94/52 L 93/50 L 103/50 L Pulse Oximetry 99 98 99 07/02/18 15:45 07/02/18 16:00 07/02/18 16:15 Temperature 98.7 F Pulse Rate 88 90 93 H Respiratory Rate 13 13 18 Blood Pressure 102/55 L 100/56 L 100/56 L Pulse Oximetry 98 98 97 07/02/18 16:30 07/02/18 16:45 07/02/18 17:00 Temperature Pulse Rate 93 H 92 H 92 H Respiratory Rate 16 27 H 34 H Blood Pressure 104/54 L 95/50 L 96/52 L Pulse Oximetry 98 98 98 07/02/18 17:15 07/02/18 17:30 07/02/18 17:45 Temperature Pulse Rate 93 H 93 H 90 Respiratory Rate 32 H 34 H 26 H Blood Pressure 97/53 L 96/55 L 91/55 L Pulse Oximetry 98 99 99 07/02/18 18:00 07/02/18 20:00 07/02/18 20:30 Temperature 98.2 F Pulse Rate 87 88 85 Respiratory Rate 28 H 24 23 Blood Pressure 89/54 L 87/51 L Pulse Oximetry 99 97 07/02/18 20:45 07/02/18 21:00 07/02/18 22:00 Temperature Pulse Rate 86 84 Respiratory Rate 23 14 Blood Pressure 91/50 L 82/46 L 92/52 L Pulse Oximetry 97 98 07/02/18 23:00 07/03/18 00:00 07/03/18 01:00 Temperature 98 F Pulse Rate 85 89 90 Respiratory Rate 34 H 32 H 40 H Blood Pressure 94/57 L 107/60 101/59 L Pulse Oximetry 98 96 96 07/03/18 01:45 07/03/18 02:00 07/03/18 03:00 Temperature Pulse Rate 89 90 90 Respiratory Rate 33 H 40 H 22 Blood Pressure 106/58 L 93/55 L 110/60 Pulse Oximetry 96 96 96 07/03/18 03:30 07/03/18 04:00 07/03/18 04:15 Temperature 98 F Pulse Rate 92 H 93 H 104 H Respiratory Rate 33 H 24 24 Blood Pressure 109/56 L 91/58 L 92/60 L Pulse Oximetry 95 96 94 L 07/03/18 04:30 07/03/18 05:00 07/03/18 05:15 Temperature Pulse Rate 95 H 93 H 95 H Respiratory Rate 26 H 25 H 20 Blood Pressure 92/61 L 109/65 121/56 L Pulse Oximetry 96 96 96 07/03/18 05:30 07/03/18 05:45 07/03/18 06:00 Temperature Pulse Rate 95 H 96 H 101 H Respiratory Rate 19 20 22 Blood Pressure 125/55 L 110/58 L 111/65 Pulse Oximetry 96 96 96 07/03/18 06:15 07/03/18 06:30 07/03/18 06:45 Temperature Pulse Rate 99 H 98 H 96 H Respiratory Rate 24 19 20 Blood Pressure 114/66 122/60 111/55 L Pulse Oximetry 96 95 96 07/03/18 07:00 07/03/18 07:15 07/03/18 07:30 Temperature Pulse Rate 95 H 96 H 96 H Respiratory Rate 19 25 H 20 Blood Pressure 108/62 104/61 107/60 Pulse Oximetry 96 95 96 07/03/18 07:45 07/03/18 08:00 07/03/18 08:15 Temperature 98.0 F Pulse Rate 94 H 93 H 91 H Respiratory Rate 20 19 20 Blood Pressure 103/62 111/57 L 117/55 L Pulse Oximetry 95 95 96 07/03/18 08:30 07/03/18 08:45 07/03/18 09:00 Temperature Pulse Rate 91 H 93 H 95 H Respiratory Rate 21 21 22 Blood Pressure 103/55 L 101/65 111/66 Pulse Oximetry 95 96 96 07/03/18 09:15 07/03/18 09:30 07/03/18 09:45 Temperature Pulse Rate 93 H 91 H 91 H Respiratory Rate 21 19 23 Blood Pressure 108/59 L 108/68 110/59 L Pulse Oximetry 96 96 96 07/03/18 10:00 07/03/18 10:15 07/03/18 10:30 Temperature Pulse Rate 94 H 92 H 96 H Respiratory Rate 20 28 H 31 H Blood Pressure 120/56 L 96/59 L Pulse Oximetry 96 96 95 07/03/18 10:38 07/03/18 10:45 07/03/18 11:00 Temperature Pulse Rate 104 H 99 H 94 H Respiratory Rate 20 15 18 Blood Pressure 130/58 L 111/59 L 122/59 L Pulse Oximetry 95 95 97 07/03/18 11:15 07/03/18 11:30 07/03/18 11:45 Temperature Pulse Rate 95 H 92 H 93 H Respiratory Rate 15 19 14 Blood Pressure 118/56 L 109/59 L 118/58 L Pulse Oximetry 97 98 98 07/03/18 12:00 07/03/18 12:23 07/03/18 12:43 Temperature 97.8 F 98 F 98 F Pulse Rate 92 H 94 H 95 H Respiratory Rate 15 15 15 Blood Pressure 118/59 L 97/61 L 101/63 Pulse Oximetry 98 96 97 Intake & Output 07/02/18 07/03/18 07/03/18 18:59 06:59 18:59 Intake Total 350 / 350 1100 / 1100 586 / 586 Output Total 500 / 500 900 / 900 Balance -150 / -150 200 / 200 586 / 586 Weight 78.1 kg Intake: IV 350 / 350 1100 / 1100 200 / 200 Protonix Inj 80 MG In NS Inj 200 / 200 100 / 100 100 / 100 100 ML @ 10 mls/hr IV.CONT Q10H NIRAJ Rx#:[id number] Flexbumin 25% Inj 50 ML @ 60 150 / 150 50 / 50 mls/hr IV.SIG TID NIRAJ Rx#: [id number] Diflucan 100 mg Premix Bag 50 50 / 50 ML @ 50 mls/hr IV.SIG Q24H NIRAJ Rx#:[id number] LR 1000 mL Inj 1,000 ML @ 75 1000 / 1000 mls/hr IV.SIG .[id number] NIRAJ Rx#: [id number] Anesthesia Amount 100 / 100 Intake (Blood Product) Amt 286 / 286 Plt Pheresis A Leukoreduced 0 / 0 Unit [id number] Plt Pheresis A Leukoreduced 286 / 286 Unit [id number] Output: Urine Amount (Catheter) 500 / 500 900 / 900 Indwelling Urethral Catheter 500 / 500 900 / 900 Other: Date of Last Bowel Movement 07/02/18 07/03/18 07/03/18 # Incontinent Bowel Movements 1 Physical Exam: CONSTITUTIONAL/GENERAL: This is a chronically ill appearing male, obtunded ,weak , nonverbal, + temporal wasting TUBES/LINES/DRAINS: PIV UE, central line, drake catheter SKIN: No rashes, or lesions. +Ecchymoses & small petechiae scattered over body. Fading small ecchymosis above left eyebrow. jaundice. Skin warm/dry. EYES: does not spont open eyes. + scleral icterus. No injection or drainage. Fundi not examined. ENT: Nose without bleeding or purulent drainage. Does not open mouth for oropharynx exam. CARDIOVASCULAR: Regular rate and rhythm , 3/6 systolic murmur . No JVD. Peripheral pulses symmetric. Chronic vascular changes to skin bilateral lower legs,generalized edema, + edema BLE RESPIRATORY/CHEST: Symmetric, unlabored respirations. snoring, shallow intermittently. On NC . Clear to auscultation, decreased air movement throughout. GASTROINTESTINAL: Abdomen slightly firm, seems to tense w palpation. nondistended/slight splenomegaly .no ascites. Bowel sounds hypoactive. MUSCULOSKELETAL: Extremities without clubbing, cyanosis. No joint tenderness or effusion noted. chronic vascular discoloration visible to bilateral lower legs , gen weeping edema, + edema BLE NEUROLOGICAL: Very lethargic/obtunded. Does not respond to my exam. No eye opening. Does not follow any commands. Does not verbalize. Minimal weak movement localizing to touch on extremities. PSYCHIATRIC: Too lethargic to assess, slight groaning at times. . Diagnostic Tests Laboratory: Laboratory Results - last 72 hr 06/30/18 06/30/18 07/01/18 18:34 23:25 07:30 WBC 6.1 D RBC 1.87 L Hgb 8.0 L Hct 24.2 L MCV 129.6 H D MCH 42.9 H MCHC 33.1 RDW 22.7 H Plt Count 29 L MPV 9.6 Prelim Diff (Auto) Slide review pending Neut % (Auto) 87.2 H Lymph % (Auto) 9.0 Atkinson % (Auto) 3.5 Eos % (Auto) 0.1 Baso % (Auto) 0.2 Neut # (Auto) 5.3 Lymph # (Auto) 0.5 L Atkinson # (Auto) 0.2 Eos # (Auto) 0.0 Baso # (Auto) 0.0 WBC Differential Manual diff final Seg Neuts % (Manual) 85 H Band Neuts % (Manual) 11 H Lymphocytes % (Manual) 2 L Monocytes % (Manual) 2 Abs Neuts (Manual) 5.9 Nucleated RBCs/100 WBC 3 H Differential Comment . Platelet Estimate Low L Platelet Morphology Normal Dimorphic RBCs Pappenheimer Bodies Present H Hernandez[place] Bodies Present H PT INR Fibrinogen Puncture Site Patient Temperature O2 Saturation ABG pH ABG pCO2 ABG pO2 ABG HCO3 ABG O2 Content ABG Base Excess ABG Methemoglobin Kody Test Hemoglobin Carboxyhemoglobin O2 Delivery Device Liter Flow Critical Value Sodium Potassium Chloride Carbon Dioxide Anion Gap BUN Creatinine Estimated GFR POC Glucose 126 H 137 H Random Glucose Lactic Acid Calcium Phosphorus Magnesium Total Bilirubin AST ALT Alkaline Phosphatase Ammonia Total Protein Albumin Triglycerides Nasal Screen MRSA (PCR) Blood Type Antibody Screen MTS Gel Crossmatch Blood Bank Comment Bld Prod Order Comment 07/01/18 07/01/18 07/01/18 07:30 07:30 10:02 WBC RBC Hgb Hct MCV MCH MCHC RDW Plt Count MPV Prelim Diff (Auto) Neut % (Auto) Lymph % (Auto) Atkinson % (Auto) Eos % (Auto) Baso % (Auto) Neut # (Auto) Lymph # (Auto) Atkinson # (Auto) Eos # (Auto) Baso # (Auto) WBC Differential Seg Neuts % (Manual) Band Neuts % (Manual) Lymphocytes % (Manual) Monocytes % (Manual) Abs Neuts (Manual) Nucleated RBCs/100 WBC Differential Comment Platelet Estimate Platelet Morphology Dimorphic RBCs Pappenheimer Bodies Hernandez[place] Bodies PT 46.5 H INR 4.6 Fibrinogen Puncture Site Patient Temperature O2 Saturation ABG pH ABG pCO2 ABG pO2 ABG HCO3 ABG O2 Content ABG Base Excess ABG Methemoglobin Kody Test Hemoglobin Carboxyhemoglobin O2 Delivery Device Liter Flow Critical Value Sodium 155 H Potassium 4.3 Chloride 123 H Carbon Dioxide 25.4 Anion Gap 7 BUN 53 H Creatinine 1.39 H Estimated GFR 53 L POC Glucose 126 H Random Glucose 125 H Lactic Acid Calcium 9.3 Phosphorus Magnesium Total Bilirubin 17.1 H AST 47 H ALT 50 Alkaline Phosphatase 57 Ammonia Total Protein 4.7 L Albumin 1.5 L Triglycerides Nasal Screen MRSA (PCR) Blood Type Antibody Screen MTS Gel Crossmatch Blood Bank Comment Bld Prod Order Comment 07/01/18 07/01/18 07/01/18 14:07 17:21 18:00 WBC RBC Hgb Hct MCV MCH MCHC RDW Plt Count MPV Prelim Diff (Auto) Neut % (Auto) Lymph % (Auto) Atkinson % (Auto) Eos % (Auto) Baso % (Auto) Neut # (Auto) Lymph # (Auto) Atkinson # (Auto) Eos # (Auto) Baso # (Auto) WBC Differential Seg Neuts % (Manual) Band Neuts % (Manual) Lymphocytes % (Manual) Monocytes % (Manual) Abs Neuts (Manual) Nucleated RBCs/100 WBC Differential Comment Platelet Estimate Platelet Morphology Dimorphic RBCs Pappenheimer Bodies Hernandez[place] Bodies PT INR Fibrinogen Puncture Site Patient Temperature O2 Saturation ABG pH ABG pCO2 ABG pO2 ABG HCO3 ABG O2 Content ABG Base Excess ABG Methemoglobin Kody Test Hemoglobin Carboxyhemoglobin O2 Delivery Device Liter Flow Critical Value Sodium 154 H Potassium 4.6 Chloride 124 H Carbon Dioxide 24.6 Anion Gap 5 BUN 57 H Creatinine 1.66 H Estimated GFR 43 L POC Glucose 110 99 Random Glucose 109 H Lactic Acid Calcium 9.6 Phosphorus 1.5 L Magnesium 2.1 Total Bilirubin 20.0 H AST 41 H ALT 45 Alkaline Phosphatase 47 Ammonia Total Protein 4.4 L Albumin 1.7 L Triglycerides 34 L Nasal Screen MRSA (PCR) Blood Type Antibody Screen MTS Gel Crossmatch Blood Bank Comment Bld Prod Order Comment 07/01/18 07/01/18 07/01/18 18:00 20:30 20:45 WBC RBC Hgb 6.6 L* Hct 20.9 L* MCV MCH MCHC RDW Plt Count MPV Prelim Diff (Auto) Neut % (Auto) Lymph % (Auto) Atkinson % (Auto) Eos % (Auto) Baso % (Auto) Neut # (Auto) Lymph # (Auto) Atkinson # (Auto) Eos # (Auto) Baso # (Auto) WBC Differential Seg Neuts % (Manual) Band Neuts % (Manual) Lymphocytes % (Manual) Monocytes % (Manual) Abs Neuts (Manual) Nucleated RBCs/100 WBC Differential Comment Platelet Estimate Platelet Morphology Dimorphic RBCs Pappenheimer Bodies Hernandez[place] Bodies PT Greater than 180.0 H D INR Greater than 18.2 H* Fibrinogen Puncture Site Patient Temperature O2 Saturation ABG pH ABG pCO2 ABG pO2 ABG HCO3 ABG O2 Content ABG Base Excess ABG Methemoglobin Kody Test Hemoglobin Carboxyhemoglobin O2 Delivery Device Liter Flow Critical Value Sodium Potassium Chloride Carbon Dioxide Anion Gap BUN Creatinine Estimated GFR POC Glucose Random Glucose Lactic Acid Calcium Phosphorus Magnesium Total Bilirubin AST ALT Alkaline Phosphatase Ammonia Total Protein Albumin Triglycerides Nasal Screen MRSA (PCR) Mrsa detected Blood Type Antibody Screen [employer] Blood Bank Comment Bld Prod Order Comment 07/01/18 07/01/18 07/01/18 20:45 20:45 20:45 WBC RBC Hgb Hct MCV MCH MCHC RDW Plt Count MPV Prelim Diff (Auto) Neut % (Auto) Lymph % (Auto) Atkinson % (Auto) Eos % (Auto) Baso % (Auto) Neut # (Auto) Lymph # (Auto) Atkinson # (Auto) Eos # (Auto) Baso # (Auto) WBC Differential Seg Neuts % (Manual) Band Neuts % (Manual) Lymphocytes % (Manual) Monocytes % (Manual) Abs Neuts (Manual) Nucleated RBCs/100 WBC Differential Comment Platelet Estimate Platelet Morphology Dimorphic RBCs Pappenheimer Bodies Hernandez[place] Bodies PT INR Fibrinogen Puncture Site Patient Temperature O2 Saturation ABG pH ABG pCO2 ABG pO2 ABG HCO3 ABG O2 Content ABG Base Excess ABG Methemoglobin Kody Test Hemoglobin Carboxyhemoglobin O2 Delivery Device Liter Flow Critical Value Sodium Potassium Chloride Carbon Dioxide Anion Gap BUN Creatinine Estimated GFR POC Glucose Random Glucose Lactic Acid Calcium Phosphorus 1.7 L Magnesium 2.1 Total Bilirubin AST ALT Alkaline Phosphatase Ammonia 26 Total Protein Albumin Triglycerides Nasal Screen MRSA (PCR) Blood Type O Negative Antibody Screen Negative [employer] Blood Bank Comment Bld Prod Order Comment 07/01/18 07/01/18 07/01/18 20:45 20:45 21:28 WBC RBC Hgb Hct MCV MCH MCHC RDW Plt Count MPV Prelim Diff (Auto) Neut % (Auto) Lymph % (Auto) Atkinson % (Auto) Eos % (Auto) Baso % (Auto) Neut # (Auto) Lymph # (Auto) Atkinson # (Auto) Eos # (Auto) Baso # (Auto) WBC Differential Seg Neuts % (Manual) Band Neuts % (Manual) Lymphocytes % (Manual) Monocytes % (Manual) Abs Neuts (Manual) Nucleated RBCs/100 WBC Differential Comment Platelet Estimate Platelet Morphology Dimorphic RBCs Pappenheimer Bodies Hernandez[place] Bodies PT INR Fibrinogen Puncture Site Right radial Patient Temperature 98.6 O2 Saturation 96 ABG pH 7.41 ABG pCO2 36 L ABG pO2 104 ABG HCO3 22 ABG O2 Content 6.7 L ABG Base Excess -1.7 ABG Methemoglobin 0.0 Kody Test Present Hemoglobin 4.8 L* Carboxyhemoglobin 3.0 O2 Delivery Device Nasal cannula Liter Flow 1.50 Critical Value Yes Sodium Potassium Chloride Carbon Dioxide Anion Gap BUN Creatinine Estimated GFR POC Glucose Random Glucose Lactic Acid Calcium Phosphorus Magnesium Total Bilirubin AST ALT Alkaline Phosphatase Ammonia Total Protein Albumin Triglycerides Nasal Screen MRSA (PCR) Blood Type Antibody Screen MTS Gel Crossmatch See Detail Blood Bank Comment Bld Prod Order Comment 07/01/18 07/01/18 07/02/18 21:30 22:06 02:30 WBC 7.3 RBC 1.82 L Hgb 6.8 L* Hct 19.5 L* MCV 107.1 H D MCH 37.3 H MCHC 34.8 RDW 29.5 H D Plt Count 47 L D MPV 8.0 Prelim Diff (Auto) Neut % (Auto) Lymph % (Auto) Atkinson % (Auto) Eos % (Auto) Baso % (Auto) Neut # (Auto) Lymph # (Auto) Atkinson # (Auto) Eos # (Auto) Baso # (Auto) WBC Differential Seg Neuts % (Manual) Band Neuts % (Manual) Lymphocytes % (Manual) Monocytes % (Manual) Abs Neuts (Manual) Nucleated RBCs/100 WBC Differential Comment Platelet Estimate Platelet Morphology Dimorphic RBCs Pappenheimer Bodies Hernandez[place] Bodies PT INR Fibrinogen Puncture Site Patient Temperature O2 Saturation ABG pH ABG pCO2 ABG pO2 ABG HCO3 ABG O2 Content ABG Base Excess ABG Methemoglobin Kody Test Hemoglobin Carboxyhemoglobin O2 Delivery Device Liter Flow Critical Value Sodium Potassium Chloride Carbon Dioxide Anion Gap BUN Creatinine Estimated GFR POC Glucose Random Glucose Lactic Acid 3.9 H Calcium Phosphorus Magnesium Total Bilirubin AST ALT Alkaline Phosphatase Ammonia Total Protein Albumin Triglycerides Nasal Screen MRSA (PCR) Blood Type Antibody Screen MTS Gel Crossmatch Blood Bank Comment Bld Prod Order Comment 07/02/18 07/02/18 07/02/18 02:30 02:30 02:58 WBC RBC Hgb Hct MCV MCH MCHC RDW Plt Count MPV Prelim Diff (Auto) Neut % (Auto) Lymph % (Auto) Atkinson % (Auto) Eos % (Auto) Baso % (Auto) Neut # (Auto) Lymph # (Auto) Atkinson # (Auto) Eos # (Auto) Baso # (Auto) WBC Differential Seg Neuts % (Manual) Band Neuts % (Manual) Lymphocytes % (Manual) Monocytes % (Manual) Abs Neuts (Manual) Nucleated RBCs/100 WBC Differential Comment Platelet Estimate Platelet Morphology Dimorphic RBCs Pappenheimer Bodies Hernandez[place] Bodies PT 17.8 H D INR 1.8 Fibrinogen 125 L Puncture Site Patient Temperature O2 Saturation ABG pH ABG pCO2 ABG pO2 ABG HCO3 ABG O2 Content ABG Base Excess ABG Methemoglobin Kody Test Hemoglobin Carboxyhemoglobin O2 Delivery Device Liter Flow Critical Value Sodium 150 H Potassium 4.1 Chloride 116 H D Carbon Dioxide 25.2 Anion Gap 9 BUN 58 H Creatinine 1.68 H Estimated GFR 42 L POC Glucose Random Glucose 132 H Lactic Acid Calcium 9.9 Phosphorus Magnesium 2.0 Total Bilirubin 19.4 H AST 34 ALT 38 Alkaline Phosphatase 61 Ammonia Total Protein 4.7 L Albumin 2.2 L Triglycerides Nasal Screen MRSA (PCR) Blood Type Antibody Screen MTS Gel Crossmatch See Detail Blood Bank Comment Bld Prod Order Comment 07/02/18 07/02/18 07/02/18 07:56 10:33 11:40 WBC 8.5 RBC 2.58 L Hgb 9.1 L D 9.0 L Hct 25.8 L 24.7 L MCV 99.7 D MCH 35.3 H MCHC 35.4 RDW 27.7 H Plt Count 31 L D MPV 8.3 Prelim Diff (Auto) Slide review pending Neut % (Auto) 89.5 H Lymph % (Auto) 7.6 L Atkinson % (Auto) 2.5 Eos % (Auto) 0.3 Baso % (Auto) 0.1 Neut # (Auto) 7.6 Lymph # (Auto) 0.7 L Atkinson # (Auto) 0.2 Eos # (Auto) 0.0 Baso # (Auto) 0.0 WBC Differential Manual diff final Seg Neuts % (Manual) 89 H Band Neuts % (Manual) 2 Lymphocytes % (Manual) 5 L Monocytes % (Manual) 4 Abs Neuts (Manual) 7.7 Nucleated RBCs/100 WBC 2 H Differential Comment . Platelet Estimate Low L Platelet Morphology Normal Dimorphic RBCs Present H Pappenheimer Bodies Present H Hernandez-[place] Bodies Present H PT INR Fibrinogen Puncture Site Patient Temperature O2 Saturation ABG pH ABG pCO2 ABG pO2 ABG HCO3 ABG O2 Content ABG Base Excess ABG Methemoglobin Kody Test Hemoglobin Carboxyhemoglobin O2 Delivery Device Liter Flow Critical Value Sodium Potassium Chloride Carbon Dioxide Anion Gap BUN Creatinine Estimated GFR POC Glucose 110 Random Glucose Lactic Acid Calcium Phosphorus Magnesium Total Bilirubin AST ALT Alkaline Phosphatase Ammonia Total Protein Albumin Triglycerides Nasal Screen MRSA (PCR) Blood Type Antibody Screen [employer] Blood Bank Comment Bld Prod Order Comment 07/02/18 07/02/18 07/02/18 17:10 18:35 23:43 WBC RBC Hgb 8.2 L Hct 23.5 L MCV MCH MCHC RDW Plt Count MPV Prelim Diff (Auto) Neut % (Auto) Lymph % (Auto) Atkinson % (Auto) Eos % (Auto) Baso % (Auto) Neut # (Auto) Lymph # (Auto) Atkinson # (Auto) Eos # (Auto) Baso # (Auto) WBC Differential Seg Neuts % (Manual) Band Neuts % (Manual) Lymphocytes % (Manual) Monocytes % (Manual) Abs Neuts (Manual) Nucleated RBCs/100 WBC Differential Comment Platelet Estimate Platelet Morphology Dimorphic RBCs Pappenheimer Bodies Hernandez[place] Bodies PT INR Fibrinogen Puncture Site Patient Temperature O2 Saturation ABG pH ABG pCO2 ABG pO2 ABG HCO3 ABG O2 Content ABG Base Excess ABG Methemoglobin Kody Test Hemoglobin Carboxyhemoglobin O2 Delivery Device Liter Flow Critical Value Sodium Potassium Chloride Carbon Dioxide Anion Gap BUN Creatinine Estimated GFR POC Glucose 90 74 Random Glucose Lactic Acid Calcium Phosphorus Magnesium Total Bilirubin AST ALT Alkaline Phosphatase Ammonia Total Protein Albumin Triglycerides Nasal Screen MRSA (PCR) Blood Type Antibody Screen [employer] Blood Bank Comment Bld Prod Order Comment 07/03/18 07/03/18 07/03/18 00:10 05:15 07:12 WBC RBC Hgb 8.5 L 9.1 L Hct 24.6 L 25.4 L MCV MCH MCHC RDW Plt Count MPV Prelim Diff (Auto) Neut % (Auto) Lymph % (Auto) Atkinson % (Auto) Eos % (Auto) Baso % (Auto) Neut # (Auto) Lymph # (Auto) Atkinson # (Auto) Eos # (Auto) Baso # (Auto) WBC Differential Seg Neuts % (Manual) Band Neuts % (Manual) Lymphocytes % (Manual) Monocytes % (Manual) Abs Neuts (Manual) Nucleated RBCs/100 WBC Differential Comment Platelet Estimate Platelet Morphology Dimorphic RBCs Pappenheimer Bodies Hernandez[place] Bodies PT INR Fibrinogen Puncture Site Patient Temperature O2 Saturation ABG pH ABG pCO2 ABG pO2 ABG HCO3 ABG O2 Content ABG Base Excess ABG Methemoglobin Kody Test Hemoglobin Carboxyhemoglobin O2 Delivery Device Liter Flow Critical Value Sodium Potassium Chloride Carbon Dioxide Anion Gap BUN Creatinine Estimated GFR POC Glucose 84 Random Glucose Lactic Acid Calcium Phosphorus Magnesium Total Bilirubin AST ALT Alkaline Phosphatase Ammonia Total Protein Albumin Triglycerides Nasal Screen MRSA (PCR) Blood Type Antibody Screen MTS Gel Crossmatch Blood Bank Comment Bld Prod Order Comment 07/03/18 07/03/18 07/03/18 10:07 13:00 13:00 WBC 8.0 RBC 2.33 L Hgb 8.4 L Hct 23.9 L MCV 102.5 H MCH 36.1 H MCHC 35.3 RDW 30.0 H Plt Count 72 L D MPV 7.6 Prelim Diff (Auto) Neut % (Auto) Lymph % (Auto) Atkinson % (Auto) Eos % (Auto) Baso % (Auto) Neut # (Auto) Lymph # (Auto) Atkinson # (Auto) Eos # (Auto) Baso # (Auto) WBC Differential Seg Neuts % (Manual) Band Neuts % (Manual) Lymphocytes % (Manual) Monocytes % (Manual) Abs Neuts (Manual) Nucleated RBCs/100 WBC Differential Comment Platelet Estimate Platelet Morphology Dimorphic RBCs Pappenheimer Bodies Hernandez[place] Bodies PT 23.7 H INR 2.3 Fibrinogen Puncture Site Patient Temperature O2 Saturation ABG pH ABG pCO2 ABG pO2 ABG HCO3 ABG O2 Content ABG Base Excess ABG Methemoglobin Kody Test Hemoglobin Carboxyhemoglobin O2 Delivery Device Liter Flow Critical Value Sodium Potassium Chloride Carbon Dioxide Anion Gap BUN Creatinine Estimated GFR POC Glucose Random Glucose Lactic Acid Calcium Phosphorus Magnesium Total Bilirubin AST ALT Alkaline Phosphatase Ammonia Total Protein Albumin Triglycerides Nasal Screen MRSA (PCR) Blood Type Antibody Screen MTS Gel Crossmatch Blood Bank Comment Bld Prod Order Comment 07/03/18 13:00 WBC RBC Hgb Hct MCV MCH MCHC RDW Plt Count MPV Prelim Diff (Auto) Neut % (Auto) Lymph % (Auto) Atkinson % (Auto) Eos % (Auto) Baso % (Auto) Neut # (Auto) Lymph # (Auto) Atkinson # (Auto) Eos # (Auto) Baso # (Auto) WBC Differential Seg Neuts % (Manual) Band Neuts % (Manual) Lymphocytes % (Manual) Monocytes % (Manual) Abs Neuts (Manual) Nucleated RBCs/100 WBC Differential Comment Platelet Estimate Platelet Morphology Dimorphic RBCs Pappenheimer Bodies Hernandez[place] Bodies PT INR Fibrinogen Puncture Site Patient Temperature O2 Saturation ABG pH ABG pCO2 ABG pO2 ABG HCO3 ABG O2 Content ABG Base Excess ABG Methemoglobin Kody Test Hemoglobin Carboxyhemoglobin O2 Delivery Device Liter Flow Critical Value Sodium 152 H Potassium 3.9 Chloride 120 H Carbon Dioxide 25.8 Anion Gap 6 BUN 59 H Creatinine 1.59 H Estimated GFR 45 L POC Glucose Random Glucose 81 Lactic Acid Calcium 9.3 Phosphorus Magnesium Total Bilirubin AST ALT Alkaline Phosphatase Ammonia Total Protein Albumin Triglycerides Nasal Screen MRSA (PCR) Blood Type Antibody Screen MTS Gel Crossmatch Blood Bank Comment Bld Prod Order Comment Result Diagrams: 07/03/18 13:00 07/03/18 13:00 Microbiology: Microbiology 07/01/18 18:00 Aerobic Blood Culture - Preliminary Blood - Peripheral No growth in 2 days Anaerobic Blood Culture - Preliminary No growth in 2 days 07/01/18 17:50 Aerobic Blood Culture - Preliminary Blood - Peripheral No growth in 2 days Anaerobic Blood Culture - Preliminary No growth in 2 days 07/01/18 14:28 Stool Occult Blood (SHARI) - Final Stool Hemoccult positive 06/28/18 00:00 Urine Culture - Final Catheterized Urine Shante glabrata Imaging: Impressions Chest X-Ray 07/01/18 00:00 CONCLUSION: Right subclavian central venous line with no pneumothorax. Chest X-Ray 07/02/18 06:00 CONCLUSION: Right central line in superior vena cava. Patchy bilateral airspace disease. No effusion or pneumothorax. Procedures: 07/03/18 EGD Assessment and Plan - Disease Oriented Problem List (1) Hepatitis B infection (2) Staghorn renal calculus (3) Acute UTI (4) Liver cirrhosis (5) Hep C w/o coma, chronic Pertinent Non-Medical Issues: Psychosocial: Patient indicates originally from [place]. Did live in [place] for about a year but has since been in [place] for several years. 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 Has 7 siblings though does not remain in close communication with them. Spiritual: Mandaen, no particular affiliation. Requests cdl service technician visit, cdl service technician notified. Legal:Patient today mildly encephalopathic. Ammonia level elevated. Partially oriented. Appears capacitated enough to participate some in decision making but does not have full insight. He is able to designate healthcare surrogate names his brother Arley Valadez as someone he would trust to make decisions in an emergency. Would recommend shared decision making at this point given his fluctuating mental status. Ethical issues impacting care: No ethical issues identified Important Contacts: Brother Arley Valadez (Brett) in [facility] #[phone] XXX OLD# XXX [phone] Brother ARLEY in [facility] [phone] [facility] where Sister Sruthi is incarcerated [phone]/ Lieutenant Adair . Prognosis: Patient is a poor historian, full medical history not readily available. Appears he has had some component of chronic liver disease, now with superimposed acute liver dysfunction. Hepatitis B, hepatitis C positive. Initiated on treatment here. Encephalopathic. Bilirubin trending up. Possible current acute disease process may be stable with ongoing aggressive treatment w antiviral, though he remains high risk for ongoing if liver disease does not stabilize or respond to treatment. He was stable for a few weeks of time here however he has had clinical deterioration in the past week, more pronounced in the past several days. Bilirubin uptrending, liver functions no longer elevating. Some hypotension . High risk for continued deterioration and . appropriate for hospice. Code Status: Full Code Plan: * Legal decision maker:Patient today mildly encephalopathic. Ammonia level elevated. Partially oriented. Appears capacitated enough to participate some in decision making but does not have full insight. He is able to designate healthcare surrogate names his brother Arley Valadez as someone he would trust to make decisions in an emergency. Would recommend shared decision making at this point given his fluctuating mental status.Brothers have previously indicated that they would be unable to help the patient physically or with housing for DC however they would remain available over the phone to assist him as needed. * Goals: Per initial interaction: patient goals stated to continue treatment he "wants to live ". He has limited insight and understanding at this time. Designated his brother Fortunato as healthcare surrogate. I have spoken at length with this brother today. He is in agreement to serve as HCS. Update and review of conditions provided today to brother. He wishes to talk to other family members, process information. No decisions made today. He plans to talk further with palliative tomorrow 05/12/18. He is unable to care for patient himself he lives out of state. He feels patient will likely need placement. Patient just moved here from [place] possibly in March at that time he had Medicaid coverage in [place]. * 07/02 goals remain aggressive, continue available treatment to keep pt alive- - additional family to be coming in town in the coming days to see pt, may consider de-escalation once all family has seen him ( most of the family has not been aware pt in hospital/pt has been estranged) Arley also informs me that correction facility will not be allowing pt sister Sruthi schroeder to see him. he has palliative contact information. * 07/03 VM left for brother, DILMA Tubbs * CODE STATUS: Full code * SYMPTOMS: --Pain-has had some ongoing pain to right flank/abdomen indicates this was new onset at time of presentation to [facility]. He has previously endorsed good relief with use of prn--indicates he had not previously been on any chronic opiates for chronic pain syndromes. Oxycodone 5 mg had been effective a few times per day. Patient now with increased lethargy /obtunded over the past week, worsening encephalopathy.slight groaning today. Cautious use of opiates or benzos given deteriorating mental status. --Encephalopathy-patient with fluctuating mental status, hepatitis, bilirubin trending up, ammonia level also up and down during hospitalization. Bilirubin at some point stopped trending up; however uptrending past few days, now 19. GI following, reconsulted RE suspected variceal bleed. s/p EGD today . Was on PO On lactulose, rifaximin . Has been receiving hepatitis treatments. Previously oriented though forgetful. MELD 36. -- dyspnea/dysphagia- more lethargic, high risk for aspiration/respiratory decline 2/2 to neurological status. Now NPO. NGT placed per GI during EGD. * Palliative care will continue to follow during hospital course as condition evolves, to assist patient/decision-maker with understanding of medical conditions, weighing benefits/burdens of treatment options, for clarification of goals of treatment. Additionally will assist with any symptoms of palliative concern Attestation Attestation: To help prompt me to consider important information that might be impacting today's encounter and assessment, information from prior notes written by myself or my colleagues may have been "brought forward" into today's note. My signature on this note, however, is an attestation that I personally performed the exam, history, and/or decision-making noted today, and, unless otherwise indicated, the interactions with patient, family, and staff as well as the review of records all occurred today. I also attest that the listed assessment and stated plan reflect my best clinical judgment today based on the combination of historical information, prior notes, and today's exam/ interactions. When time spent is documented, it refers only to time spent today by the signer, or if indicated, combined time spent today by collaborating physician/nurse practitioner.
--- NOTE | 2018-07-03 17:21 | P.PNCC ---
Subjective Subjective Remarks/Hospital Course: 07/01: Patient is a 58 y/o male with history of Hep B, Hep C, and liver cirrhosis admitted on 04/29 after being transferred from [facility] for staghorn renal calculus complicated by UTI. Urology was consulted at that time, deemed no surgical intervention needed at this time. Patient had been treated with IV antibiotics and antifungals for UTI. GI was consulted for management of end-stage liver disease and pancytopenia. Last EGD and colonoscopy in November 2016, portal hypertensive gastropathy noted on EGD. During the hospital course, he continued to decline with worsening liver function and coagulopathy. Today's a.m. labs showed a hemoglobin 8 platelet 29 INR 4.6 bilirubin of 20 BUN 57 with a creatinine of 1.66. Today evening patient developed large melanotic stools and became hypotensive a stat hemoglobin showed 6.6. I discussed with the medicine LICENSING MANAGER stat transfusion ordered for 2 units of PRBC, 2 units of FFP, 2 pack units of platelets, 1 pack units of cryoprecipitate. Patient continues to have worsening hypotension and was moved to the ICU critical care medicine was consulted I evaluated the patient in the ICU emergently. Currently systolic blood pressures in the 70s, Levophed had been started currently at 5 mcg/min. Patient is very encephalopathy unable to follow commands. Type and crossmatch, followed by blood transfusion is pending at this time. Palliative care is following, and at this time patient is a full code. Dr. Bonner from GI recommends PPI and supportive care. In addition to blood product resuscitation, I will started on octreotide infusion and Rocephin for SBP prophylaxis. Prognosis is guarded at this time. I suspect a variceal bleed. From GI notes it appears like patient had been evaluated for liver transplant at [facility] and had been declined 07/02: Blood pressure borderline. Received 4 units PRBCs last night along with 2 units FFP, 1 unit cryoprecipitate, 2 units platelets. Hemoglobin greater than 9 currently. Awaiting EGD and colonoscopy per GI. Patient is cleared for endoscopy per critical care. 07/03: Patient underwent EGD. Was found to have a duodenal ulcer with large visible vessel. No active bleeding noted. Clip was placed over vessel. Old blood was suctioned out from stomach during EGD. Patient remains on minimal Levophed for pressor support. Remains encephalopathic, on nasal cannula. Objective Vital Signs / I&O: Vital Signs 07/02/18 17:30 07/02/18 17:45 07/02/18 18:00 Temperature Pulse Rate 93 H 90 87 Respiratory Rate 34 H 26 H 28 H Blood Pressure 96/55 L 91/55 L 89/54 L Pulse Oximetry 99 99 99 07/02/18 20:00 07/02/18 20:30 07/02/18 20:45 Temperature 98.2 F Pulse Rate 88 85 Respiratory Rate 24 23 Blood Pressure 87/51 L 91/50 L Pulse Oximetry 97 07/02/18 21:00 07/02/18 22:00 07/02/18 23:00 Temperature Pulse Rate 86 84 85 Respiratory Rate 23 14 34 H Blood Pressure 82/46 L 92/52 L 94/57 L Pulse Oximetry 97 98 98 07/03/18 00:00 07/03/18 01:00 07/03/18 01:45 Temperature 98 F Pulse Rate 89 90 89 Respiratory Rate 32 H 40 H 33 H Blood Pressure 107/60 101/59 L 106/58 L Pulse Oximetry 96 96 96 07/03/18 02:00 07/03/18 03:00 07/03/18 03:30 Temperature Pulse Rate 90 90 92 H Respiratory Rate 40 H 22 33 H Blood Pressure 93/55 L 110/60 109/56 L Pulse Oximetry 96 96 95 07/03/18 04:00 07/03/18 04:15 07/03/18 04:30 Temperature 98 F Pulse Rate 93 H 104 H 95 H Respiratory Rate 24 24 26 H Blood Pressure 91/58 L 92/60 L 92/61 L Pulse Oximetry 96 94 L 96 07/03/18 05:00 07/03/18 05:15 07/03/18 05:30 Temperature Pulse Rate 93 H 95 H 95 H Respiratory Rate 25 H 20 19 Blood Pressure 109/65 121/56 L 125/55 L Pulse Oximetry 96 96 96 07/03/18 05:45 07/03/18 06:00 07/03/18 06:15 Temperature Pulse Rate 96 H 101 H 99 H Respiratory Rate 20 22 24 Blood Pressure 110/58 L 111/65 114/66 Pulse Oximetry 96 96 96 07/03/18 06:30 07/03/18 06:45 07/03/18 07:00 Temperature Pulse Rate 98 H 96 H 95 H Respiratory Rate 19 20 19 Blood Pressure 122/60 111/55 L 108/62 Pulse Oximetry 95 96 96 07/03/18 07:15 07/03/18 07:30 07/03/18 07:45 Temperature Pulse Rate 96 H 96 H 94 H Respiratory Rate 25 H 20 20 Blood Pressure 104/61 107/60 103/62 Pulse Oximetry 95 96 95 07/03/18 08:00 07/03/18 08:15 07/03/18 08:30 Temperature 98.0 F Pulse Rate 93 H 91 H 91 H Respiratory Rate 19 20 21 Blood Pressure 111/57 L 117/55 L 103/55 L Pulse Oximetry 95 96 95 07/03/18 08:45 07/03/18 09:00 07/03/18 09:15 Temperature Pulse Rate 93 H 95 H 93 H Respiratory Rate 21 22 21 Blood Pressure 101/65 111/66 108/59 L Pulse Oximetry 96 96 96 07/03/18 09:30 07/03/18 09:45 07/03/18 10:00 Temperature Pulse Rate 91 H 91 H 94 H Respiratory Rate 19 23 20 Blood Pressure 108/68 110/59 L 120/56 L Pulse Oximetry 96 96 96 07/03/18 10:15 07/03/18 10:30 07/03/18 10:38 Temperature Pulse Rate 92 H 96 H 104 H Respiratory Rate 28 H 31 H 20 Blood Pressure 96/59 L 130/58 L Pulse Oximetry 96 95 95 07/03/18 10:45 07/03/18 11:00 07/03/18 11:15 Temperature Pulse Rate 99 H 94 H 95 H Respiratory Rate 15 18 15 Blood Pressure 111/59 L 122/59 L 118/56 L Pulse Oximetry 95 97 97 07/03/18 11:30 07/03/18 11:45 07/03/18 12:00 Temperature 97.8 F Pulse Rate 92 H 93 H 92 H Respiratory Rate 19 14 15 Blood Pressure 109/59 L 118/58 L 118/59 L Pulse Oximetry 98 98 98 07/03/18 12:23 07/03/18 12:43 Temperature 98 F 98 F Pulse Rate 94 H 95 H Respiratory Rate 15 15 Blood Pressure 97/61 L 101/63 Pulse Oximetry 96 97 Intake & Output 07/02/18 07/03/18 07/03/18 18:59 06:59 18:59 Intake Total 350 / 350 1100 / 1100 2036.5 / 2036.5 Output Total 500 / 500 900 / 900 Balance -150 / -150 200 / 200 6.5 / 2035.5 Weight 78.1 kg Intake: IV 350 / 350 1100 / 1100 1650.5 / 1650.5 SandoSTATIN Inj 500 MCG In NS 500.5 / 500.5 Inj 500 ML @ 25 MCG/HR 25.02 mls/hr IV.CONT .Q20H1M NIRAJ Rx#: [id number] Protonix Inj 80 MG In NS Inj 200 / 200 100 / 100 100 / 100 100 ML @ 10 mls/hr IV.CONT Q10H NIRAJ Rx#:[id number] Flexbumin 25% Inj 50 ML @ 60 150 / 150 100 / 100 mls/hr IV.SIG TID NIRAJ Rx#: [id number] Diflucan 100 mg Premix Bag 50 50 / 50 ML @ 50 mls/hr IV.SIG Q24H NIRAJ Rx#:[id number] LR 1000 mL Inj 1,000 ML @ 75 1000 / 1000 900 / 900 mls/hr IV.SIG .[id number] [facility] Rx#: [id number] Anesthesia Amount 100 / 100 Intake (Blood Product) Amt 286 / 286 Plt Pheresis A Leukoreduced 0 / 0 Unit [id number] Plt Pheresis A Leukoreduced 286 / 286 Unit [id number] Output: Urine Amount (Catheter) 500 / 500 900 / 900 Indwelling Urethral Catheter 500 / 500 900 / 900 Other: Date of Last Bowel Movement 07/02/18 07/03/18 07/03/18 # Incontinent Bowel Movements 1 Result Diagrams: 07/03/18 13:00 07/03/18 13:00 Objective Remarks: Narrative: GENERAL: Thin chronically ill appearing male patient. Encephalopathy lethargic. Opens eyes to voice SKIN: Warm and dry. +Jaundiced. HEAD: Normocephalic. EYES: Pupils equal and round. Bilateral icterus ENT: No nasal bleeding or discharge. Dry mucus membranes. NECK: Trachea midline. CARDIOVASCULAR: Regular rate and rhythm. Systolic murmur auscultated. RESPIRATORY: No accessory muscle use. Air entry equal GASTROINTESTINAL: Abdomen soft, non-tender, nondistended. MUSCULOSKELETAL: Extremities without clubbing, cyanosis, or edema. NEUROLOGICAL: Patient is encephalopathy lethargic. Opens eyes do not follow commands intermittently gets agitated. No focal deficits Assessment and Plan - Assessment and Plan Plan: ASSESSMENT: Hemorrhagic shock GI bleed most likely variceal Anemia requiring transfusion Severe coagulopathy with elevated INR Thrombocytopenia Hyperfibrinogenemia Hepatic encephalopathy UTI Acute kidney injury, Possible hepatorenal syndrome. Hepatitis B, hepatitis C Alcohol dependence PLAN: NEURO: -Receiving Xifaxan and lactulose -Hold while n.p.o. -Minimize sedation -Continue to supplement multivitamin bag RESP: -DuoNeb as needed -Protecting airway at this time CV: -Levophed to keep map above 65 -Normal saline 1 L bolus maintenance fluid LR at 75 per hour -Blood product resuscitation as below -Continue IV albumin GI/HEME: -N.p.o., IV Protonix 80 mg bolus and infusion at 8 mg/h -Octreotide infusion stopped following EGD on 07/03 as patient did not have any varices. -Rocephin for SBP prophylaxis -Transfused 4 units of PRBC, 2 units of FFP, 2 pack units of platelets, cryoprecipitate and calcium 2 g -Serial hemoglobin check repeat coags in a.m. -Found to have duodenal ulcer with visible vessel which was clipped by GI during EGD on 07/03. -Pancytopenia and coagulopathy secondary to liver disease S/p treatment with Harvoni and recently tenofovir by GI with diagnosis of hepatitis B. The patient not compliant. Worked up in [facility] for liver transplant 2016 but was not a candidate due to social issues and lack of support. Last EGD and colonoscopy in November 2016, portal hypertensive gastropathy -Continue lactulose. : -Monitor renal function closely. Strict intake output ID: -Rocephin for GI prophylaxis -Currently on Diflucan for Shante UTI, urine cx 04/30 and 06/28 C Glabrata- change to Micafungin ENDO: -Electrolyte replacement PROPH: -Bilateral lower extremity SCDs. IV Protonix. Chemical DVT prophylaxis is contraindicated LINES: -Right subclavian central line placed 07/01/2018 Discussed with GI, discussed with patient's family at bedside. CC time 35 min
[2018-07-03 19:21] LABS: Baso % (Auto) 0.3 % (0.0-2.0); Eos % (Auto) 0.3 % (0.0-4.0); Hematocrit 24.9 % (39.0-51.0); Hemoglobin 8.6 gm/dL (13.0-17.0); Lymph # (Auto) 0.4 th/mm3 (1.0-4.8); Lymph % (Auto) 4.8 % (9.0-44.0); Mean Corpuscular HGB Conc 34.6 % (32.0-36.0); Mean Corpuscular Hemoglobin 35.2 pg (27.0-34.0); Mean Corpuscular Volume 101.7 fL (80.0-100.0); Mean Platelet Volume 8.3 fL (7.0-11.0); Mono # (Auto) 0.1 th/mm3 (0.0-0.9); Mono % (Auto) 1.9 % (0.0-8.0); Neut # (Auto) 6.9 th/mm3 (1.8-7.7); Neut % (Auto) 92.7 % (16.0-70.0); Platelet Count 55 th/mm3 (150-450); Red Blood Count 2.45 mil/mm3 (4.50-5.90); Red Cell Distribution Width 29.4 % (11.6-17.2); White Blood Count 7.4 th/mm3 (4.0-11.0)
[2018-07-03 19:55] LABS: Lymphocytes 2 % (9-44); Monocytes 1 % (0-8)
[2018-07-03 19:56] LABS: Dimorphic RBC Present; Pappenheimer Bodies Present
[2018-07-03 19:57] LABS: Burr Cells 1+; Ovalocytes 1+; Platelet Morphology Normal (Normal)
[2018-07-03] MEDS: Escitalopram 10 MG Tablet PO SCH (21:17)
[2018-07-04 01:29] LABS: Hematocrit 26.7 % (39.0-51.0); Hemoglobin 9.3 gm/dL (13.0-17.0)
[2018-07-04 05:44] LABS: Eos % (Auto) 0.1 % (0.0-4.0); Hematocrit 26.8 % (39.0-51.0); Hemoglobin 9.4 gm/dL (13.0-17.0); Lymph # (Auto) 0.3 th/mm3 (1.0-4.8); Lymph % (Auto) 3.1 % (9.0-44.0); Mean Corpuscular Hemoglobin 35.7 pg (27.0-34.0); Mean Platelet Volume 8.8 fL (7.0-11.0); Mono # (Auto) 0.2 th/mm3 (0.0-0.9); Mono % (Auto) 2.1 % (0.0-8.0); Neut # (Auto) 8.7 th/mm3 (1.8-7.7); Neut % (Auto) 94.7 % (16.0-70.0); Platelet Count 49 th/mm3 (150-450); Red Blood Count 2.63 mil/mm3 (4.50-5.90); Red Cell Distribution Width 29.6 % (11.6-17.2); White Blood Count 9.2 th/mm3 (4.0-11.0)
[2018-07-04 06:10] LABS: Alanine Aminotransferase 24 U/L (12-78); Albumin 2.5 g/dL (3.4-5.0); Alkaline Phosphatase 67 U/L (45-117); Anion Gap 10 meq/L (5-15); Aspartate Aminotransferase 23 U/L (15-37); Blood Urea Nitrogen 57 mg/dL (7-18); Calcium 10.2 mg/dL (8.5-10.1); Carbon Dioxide 24.4 meq/L (21.0-32.0); Chloride 120 meq/L (98-107); Glomerular Filtration Rate 50 mL/min (>89); Glucose,Random 78 mg/dL (74-106); Potassium 3.5 meq/L (3.5-5.1); Sodium 154 meq/L (136-145); Total Protein 4.7 g/dL (6.4-8.2)
[2018-07-04] MEDS: Pantoprazole Inj 80 MG in Sodium Chlor 0.9% Inj 100 ML IV.CONT SCH ×3 (06:40→21:13)
[2018-07-04 06:41] LABS: Dimorphic RBC Present; Ovalocytes 2+; Platelet Morphology Normal (Normal)
[2018-07-04] MEDS: Octreotide Inj 500 MCG in Sodium Chlor 0.9% Inj 500 ML IV.CONT SCH ×2 (07:00→08:31)
[2018-07-04] MEDS: Albumin Human 25% Inj 50 ML IV.SIG SCH ×3 (08:03→17:33)
[2018-07-04] MEDS: Phytonadione Inj 10 MG/ML Vial SQ SCH (08:03)
[2018-07-04] MEDS: Senna/Docusate Sodium 8.6/50 MG Tablet PO SCH ×2 (08:04→21:19)
[2018-07-04] MEDS: Folic Acid 1 MG Tablet PO SCH (08:04)
[2018-07-04] MEDS: Sodium Chloride 0.9% 2 ML Flush BID IV.FLUSH SCH ×2 (08:04→21:19)
[2018-07-04] MEDS: Tenofovir 300 MG Tablet PO SCH (08:04)
[2018-07-04] MEDS: rifAXIMin 550 MG Tablet PO SCH ×2 (08:04→21:19)
--- NOTE | 2018-07-04 12:03 | P.PNCC ---
Subjective Subjective Remarks/Hospital Course: 07/01: Patient is a 58 y/o male with history of Hep B, Hep C, and liver cirrhosis admitted on 04/29 after being transferred from [facility] for staghorn renal calculus complicated by UTI. Urology was consulted at that time, deemed no surgical intervention needed at this time. Patient had been treated with IV antibiotics and antifungals for UTI. GI was consulted for management of end-stage liver disease and pancytopenia. Last EGD and colonoscopy in November 2016, portal hypertensive gastropathy noted on EGD. During the hospital course, he continued to decline with worsening liver function and coagulopathy. Today's a.m. labs showed a hemoglobin 8 platelet 29 INR 4.6 bilirubin of 20 BUN 57 with a creatinine of 1.66. Today evening patient developed large melanotic stools and became hypotensive a stat hemoglobin showed 6.6. I discussed with the medicine [employer] stat transfusion ordered for 2 units of PRBC, 2 units of FFP, 2 pack units of platelets, 1 pack units of cryoprecipitate. Patient continues to have worsening hypotension and was moved to the ICU critical care medicine was consulted I evaluated the patient in the ICU emergently. Currently systolic blood pressures in the 70s, Levophed had been started currently at 5 mcg/min. Patient is very encephalopathy unable to follow commands. Type and crossmatch, followed by blood transfusion is pending at this time. Palliative care is following, and at this time patient is a full code. Dr. Bonner from GI recommends PPI and supportive care. In addition to blood product resuscitation, I will started on octreotide infusion and Rocephin for SBP prophylaxis. Prognosis is guarded at this time. I suspect a variceal bleed. From GI notes it appears like patient had been evaluated for liver transplant at [facility] and had been declined 07/02: Blood pressure borderline. Received 4 units PRBCs last night along with 2 units FFP, 1 unit cryoprecipitate, 2 units platelets. Hemoglobin greater than 9 currently. Awaiting EGD and colonoscopy per GI. Patient is cleared for endoscopy per critical care. 07/03: Patient underwent EGD. Was found to have a duodenal ulcer with large visible vessel. No active bleeding noted. Clip was placed over vessel. Old blood was suctioned out from stomach during EGD. Patient remains on minimal Levophed for pressor support. Remains encephalopathic, on nasal cannula. 07/04: Patient's care complicated by end-stage hepatic cirrhosis. Coagulation profile again deteriorating. Bilirubin remains elevated. This is a clear-cut hospice situation with little hope for any type of meaningful existence during the remainder of the terminal stages. Objective Vital Signs / I&O: Vital Signs 07/03/18 12:00 07/03/18 12:15 07/03/18 12:23 Temperature 97.8 F 98 F Pulse Rate 92 H 95 H 94 H Respiratory Rate 15 15 15 Blood Pressure 118/59 L 97/61 L 97/61 L Pulse Oximetry 98 96 96 07/03/18 12:30 07/03/18 12:43 07/03/18 12:45 Temperature 98 F Pulse Rate 94 H 95 H 96 H Respiratory Rate 16 15 16 Blood Pressure 101/63 101/63 145/62 H Pulse Oximetry 97 97 97 07/03/18 13:00 07/03/18 13:15 07/03/18 13:30 Temperature Pulse Rate 95 H 94 H 95 H Respiratory Rate 14 15 16 Blood Pressure 112/57 L 117/64 Pulse Oximetry 99 99 98 07/03/18 13:45 07/03/18 14:00 07/03/18 14:10 Temperature Pulse Rate 70 92 H 93 H Respiratory Rate 13 27 H 20 Blood Pressure 97/55 L Pulse Oximetry 99 97 95 07/03/18 14:13 07/03/18 14:15 07/03/18 14:20 Temperature Pulse Rate 94 H 93 H 93 H Respiratory Rate 25 H 34 H 29 H Blood Pressure 99/58 L 101/62 Pulse Oximetry 94 L 94 L 94 L 07/03/18 14:30 07/03/18 14:48 07/03/18 15:00 Temperature Pulse Rate 88 93 H Respiratory Rate 115 H 15 Blood Pressure Pulse Oximetry 96 94 L 96 07/03/18 15:15 07/03/18 15:30 07/03/18 15:45 Temperature Pulse Rate 91 H 91 H 92 H Respiratory Rate 15 15 20 Blood Pressure Pulse Oximetry 96 97 97 07/03/18 16:00 07/03/18 16:15 07/03/18 16:30 Temperature 98 F Pulse Rate 93 H 93 H 93 H Respiratory Rate 21 15 18 Blood Pressure Pulse Oximetry 97 98 97 07/03/18 16:45 07/03/18 16:54 07/03/18 17:00 Temperature Pulse Rate 94 H 94 H 94 H Respiratory Rate 20 16 16 Blood Pressure 118/64 123/59 L Pulse Oximetry 98 98 98 07/03/18 17:15 07/03/18 17:30 07/03/18 17:45 Temperature Pulse Rate 95 H 96 H 96 H Respiratory Rate 17 19 21 Blood Pressure 108/64 Pulse Oximetry 97 97 97 07/03/18 18:00 07/03/18 18:15 07/03/18 18:30 Temperature Pulse Rate 98 H 96 H 95 H Respiratory Rate 22 16 16 Blood Pressure 102/67 121/59 L Pulse Oximetry 97 98 98 07/03/18 19:00 07/03/18 19:15 07/03/18 19:30 Temperature Pulse Rate 95 H 95 H 96 H Respiratory Rate 16 17 19 Blood Pressure 118/61 119/60 Pulse Oximetry 97 97 97 07/03/18 19:45 07/03/18 20:00 07/03/18 20:15 Temperature 98.6 F Pulse Rate 95 H 97 H 99 H Respiratory Rate 17 21 17 Blood Pressure 121/83 Pulse Oximetry 97 97 96 07/03/18 20:30 07/03/18 20:45 07/03/18 21:00 Temperature Pulse Rate 98 H 98 H 96 H Respiratory Rate 16 21 16 Blood Pressure 104/57 L 112/58 L Pulse Oximetry 96 96 97 07/03/18 21:15 07/03/18 21:30 07/03/18 21:45 Temperature Pulse Rate 95 H 97 H 98 H Respiratory Rate 18 21 16 Blood Pressure 123/55 L 110/52 L 107/54 L Pulse Oximetry 97 98 99 07/03/18 22:00 07/03/18 22:15 07/03/18 22:30 Temperature Pulse Rate 99 H 99 H 100 H Respiratory Rate 17 17 18 Blood Pressure 112/53 L 106/57 L 109/62 Pulse Oximetry 99 98 98 07/03/18 22:45 07/03/18 23:00 07/03/18 23:15 Temperature Pulse Rate 97 H 97 H 97 H Respiratory Rate 16 16 18 Blood Pressure 99/55 L 118/59 L 114/54 L Pulse Oximetry 98 98 98 07/03/18 23:30 07/03/18 23:45 07/04/18 00:00 Temperature 98.6 F Pulse Rate 98 H 96 H 96 H Respiratory Rate 16 16 18 Blood Pressure 105/58 L 94/58 L 97/59 L Pulse Oximetry 98 98 98 07/04/18 00:15 07/04/18 00:30 07/04/18 00:45 Temperature Pulse Rate 97 H 96 H 95 H Respiratory Rate 16 15 15 Blood Pressure 120/59 L 105/61 108/60 Pulse Oximetry 98 98 98 07/04/18 01:00 07/04/18 01:15 07/04/18 01:30 Temperature Pulse Rate 97 H 96 H 97 H Respiratory Rate 16 15 15 Blood Pressure 90/61 L 93/59 L 100/59 L Pulse Oximetry 98 98 98 07/04/18 01:45 07/04/18 02:00 07/04/18 02:15 Temperature Pulse Rate 96 H 95 H 97 H Respiratory Rate 18 16 15 Blood Pressure 99/59 L 102/63 106/67 Pulse Oximetry 98 98 98 07/04/18 02:30 07/04/18 02:45 07/04/18 03:00 Temperature Pulse Rate 96 H 98 H 100 H Respiratory Rate 15 16 17 Blood Pressure 92/63 L 95/60 L 102/60 Pulse Oximetry 98 98 97 07/04/18 03:15 07/04/18 03:30 07/04/18 03:45 Temperature Pulse Rate 98 H 95 H 96 H Respiratory Rate 16 15 15 Blood Pressure 98/55 L 98/56 L 101/55 L Pulse Oximetry 98 98 98 07/04/18 04:00 07/04/18 04:15 07/04/18 04:30 Temperature 98.4 F Pulse Rate 96 H 97 H 96 H Respiratory Rate 15 15 15 Blood Pressure 99/64 L 106/64 103/55 L Pulse Oximetry 97 97 97 07/04/18 04:45 07/04/18 05:00 07/04/18 05:15 Temperature Pulse Rate 96 H 99 H 98 H Respiratory Rate 15 17 18 Blood Pressure 105/57 L 109/61 107/62 Pulse Oximetry 98 96 95 07/04/18 05:30 07/04/18 05:45 07/04/18 06:00 Temperature Pulse Rate 95 H 96 H 95 H Respiratory Rate 17 23 23 Blood Pressure 101/58 L 110/65 101/60 Pulse Oximetry 96 96 96 07/04/18 06:15 12/01/18 06:30 07/04/18 06:45 Temperature Pulse Rate 95 H 94 H 95 H Respiratory Rate 18 16 19 Blood Pressure 103/60 104/59 L 99/55 L Pulse Oximetry 96 96 96 07/04/18 07:00 07/04/18 07:15 07/04/18 07:30 Temperature Pulse Rate 95 H 95 H 95 H Respiratory Rate 19 17 17 Blood Pressure 102/63 101/60 114/65 Pulse Oximetry 96 96 96 07/04/18 07:45 07/04/18 08:00 07/04/18 08:15 Temperature 97.7 F Pulse Rate 96 H 96 H 98 H Respiratory Rate 18 22 19 Blood Pressure 104/56 L 114/58 L 109/64 Pulse Oximetry 96 96 95 07/04/18 08:30 07/04/18 08:45 07/04/18 09:00 Temperature Pulse Rate 96 H 96 H 96 H Respiratory Rate 20 19 18 Blood Pressure 94/67 L 107/69 107/66 Pulse Oximetry 96 96 96 07/04/18 09:15 07/04/18 09:30 07/04/18 09:45 Temperature Pulse Rate 95 H 96 H 97 H Respiratory Rate 18 19 21 Blood Pressure 106/58 L 112/61 103/60 Pulse Oximetry 96 96 96 07/04/18 10:00 07/04/18 10:15 Temperature Pulse Rate 96 H 97 H Respiratory Rate 18 17 Blood Pressure 105/62 107/71 Pulse Oximetry 96 96 Intake & Output 07/03/18 07/04/18 07/04/18 18:59 06:59 18:59 Intake Total 3281.5 / 3281.5 1800 / 1800 860 / 860 Output Total 775 / 775 650 / 650 Balance 2506.5 / 2506.5 1150 / 1150 860 / 860 Weight 74.5 kg Intake: IV 2895.5 / 2895.5 1800 / 1800 860 / 860 SandoSTATIN Inj 500 MCG In NS 500.5 / 500.5 450 / 450 Inj 500 ML @ 25 MCG/HR 25.02 mls/hr IV.CONT .Q20H1M NIRAJ Rx#: [id number] Protonix Inj 80 MG In NS Inj 145 / 145 200 / 200 100 ML @ 10 mls/hr IV.CONT Q10H [facility] Rx#:[id number] Flexbumin 25% Inj 50 ML @ 60 100 / 100 100 / 100 mls/hr IV.SIG TID NIRAJ Rx#: [id number] Diflucan 100 mg Premix Bag 50 50 / 50 50 / 50 ML @ 50 mls/hr IV.SIG Q24H [facility] Rx#:[id number] LR 1000 mL Inj 1,000 ML @ 75 900 / 900 900 / 900 mls/hr IV.SIG .[id number] NIRAJ Rx#: [id number] Mycamine Inj 100 MG In NS Inj 100 / 100 100 / 100 100 ML @ 100 mls/hr IV.SIG Q24H [facility] Rx#:[id number] Levophed-Dextrose 4 mg/250 ml 500 / 500 Drip 4 mg In 250 ml @ 5 MCG/MIN 18.75 mls/hr IV.SIG TITRATE PRN Rx#:[id number] Potassium Phosphate Inj 30 MMOL 260 / 260 In NS Inj 250 ML @ 42 mls/hr IV.SIG UNSCH PRN Rx#:[id number] Rocephin Inj 1,000 MG In NS Inj 100 / 100 100 / 100 100 ML @ 200 mls/hr IV.SIG Q24H [facility] Rx#:[id number] Anesthesia Amount 100 / 100 Intake (Blood Product) Amt 286 / 286 Plt Pheresis A Leukoreduced 0 / 0 Unit [id number] Plt Pheresis A Leukoreduced 286 / 286 Unit [id number] Output: Urine 650 / 650 Urine Amount (Catheter) 775 / 775 Indwelling Urethral Catheter 775 / 775 Other: Date of Last Bowel Movement 07/03/18 07/03/18 07/03/18 # Bowel Movements 2 Result Diagrams: 07/04/18 05:15 07/04/18 05:15 Objective Remarks: Narrative: GENERAL: Thin, chronically ill appearing male patient. Hepatic encephalopathy. Largely unresponsive. SKIN: Warm and dry. +Jaundiced. HEAD: Normocephalic. EYES: Pupils equal and round. Bilateral conjunctival icterus ENT: No nasal bleeding or discharge. Dry mucus membranes. Airway widely patent , no obstructive noises. CARDIOVASCULAR: Regular rate and rhythm. Systolic murmur auscultated. Normal S1 -S2, no JVD. RESPIRATORY: No accessory muscle use. Air entry equal GASTROINTESTINAL: Abdomen soft, non-tender, mildly distended. Quiet. MUSCULOSKELETAL: Extremities without clubbing, cyanosis, or edema. Tepid, adequately perfused. NEUROLOGICAL: Patient is encephalopathic and largely unresponsive. Opens eyes but does not follow commands. No focal deficits. Assessment and Plan - Assessment and Plan Plan: ASSESSMENT: Hemorrhagic shock GI bleed most likely variceal Anemia requiring transfusion Severe coagulopathy with elevated INR Thrombocytopenia Hyperfibrinogenemia Hepatic encephalopathy UTI Acute kidney injury, Possible hepatorenal syndrome. Hepatitis B, hepatitis C Alcohol dependence PLAN: NEURO: -Receiving Xifaxan and lactulose -Hold while n.p.o. -Minimize sedation -Continue to supplement multivitamin bag -Largely unresponsive today 07/04 RESP: -DuoNeb as needed -Protecting airway at this time -Acceptable respiratory pattern. CV: -Levophed to keep map above 60 -Normal saline 1 L bolus maintenance fluid LR at 35 per hour -Blood product resuscitation as below -Continue IV albumin GI/HEME: -N.p.o., IV Protonix 80 mg bolus and infusion at 8 mg/h -Octreotide infusion stopped following EGD on 07/03 as patient did not have any varices. -Rocephin for SBP prophylaxis -Transfused 4 units of PRBC, 2 units of FFP, 2 pack units of platelets, cryoprecipitate and calcium 2 g -Serial hemoglobin check repeat coags in a.m. -Found to have duodenal ulcer with visible vessel which was clipped by GI during EGD on 07/03. -Pancytopenia and coagulopathy secondary to liver disease S/p treatment with Harvoni and recently tenofovir by GI with diagnosis of hepatitis B. The patient not compliant. Worked up in [facility] for liver transplant 2016 but was not a candidate due to social issues and lack of support. Last EGD and colonoscopy in November 2016, portal hypertensive gastropathy -Continue lactulose. -Follow serial hemoglobin. : -Monitor renal function closely. Strict intake output ID: -Rocephin for GI prophylaxis -Currently on Diflucan for Shante UTI, urine cx 04/30 and 06/28 C Glabrata- change to Micafungin ENDO: -Electrolyte replacement PROPH: -Bilateral lower extremity SCDs. IV Protonix. Chemical DVT prophylaxis is contraindicated due to high risk of bleeding. INR already prolonged. LINES: -Right subclavian central line placed 07/01/2018 Overall impression: This gentleman is critically ill with end-stage hepatic failure complicated by coagulopathy and encephalopathy. He will likely succumb to catastrophic hemorrhage but is unlikely to be much more alert at any time. I anticipate impending renal failure before too long. Critical care time 45 minutes aside from procedures.
[2018-07-04] MEDS: Ferrous Sulfate 325 MG Tablet PO SCH ×2 (12:05→17:33)
--- NOTE | 2018-07-04 14:07 | P.PNGI ---
Subjective Interval history: No more melena, still lethargic but looks more comfortable. Physical Exam Vital signs: Vital Signs 07/03/18 14:10 07/03/18 14:13 07/03/18 14:15 Temperature Pulse Rate 93 H 94 H 93 H Respiratory Rate 20 25 H 34 H Blood Pressure 97/55 L 99/58 L Pulse Oximetry 95 94 L 94 L 07/03/18 14:20 07/03/18 14:30 07/03/18 14:48 Temperature Pulse Rate 93 H 88 Respiratory Rate 29 H 115 H Blood Pressure 101/62 Pulse Oximetry 94 L 96 94 L 07/03/18 15:00 07/03/18 15:15 07/03/18 15:30 Temperature Pulse Rate 93 H 91 H 91 H Respiratory Rate 15 15 15 Blood Pressure Pulse Oximetry 96 96 97 07/03/18 15:45 07/03/18 16:00 07/03/18 16:15 Temperature 98 F Pulse Rate 92 H 93 H 93 H Respiratory Rate 20 21 15 Blood Pressure Pulse Oximetry 97 97 98 07/03/18 16:30 07/03/18 16:45 07/03/18 16:54 Temperature Pulse Rate 93 H 94 H 94 H Respiratory Rate 18 20 16 Blood Pressure 118/64 Pulse Oximetry 97 98 98 07/03/18 17:00 07/03/18 17:15 07/03/18 17:30 Temperature Pulse Rate 94 H 95 H 96 H Respiratory Rate 16 17 19 Blood Pressure 123/59 L 108/64 Pulse Oximetry 98 97 97 07/03/18 17:45 07/03/18 18:00 07/03/18 18:15 Temperature Pulse Rate 96 H 98 H 96 H Respiratory Rate 21 22 16 Blood Pressure 102/67 Pulse Oximetry 97 97 98 07/03/18 18:30 07/03/18 19:00 07/03/18 19:15 Temperature Pulse Rate 95 H 95 H 95 H Respiratory Rate 16 16 17 Blood Pressure 121/59 L 118/61 Pulse Oximetry 98 97 97 07/03/18 19:30 07/03/18 19:45 07/03/18 20:00 Temperature 98.6 F Pulse Rate 96 H 95 H 97 H Respiratory Rate 19 17 21 Blood Pressure 119/60 121/83 Pulse Oximetry 97 97 97 07/03/18 20:15 07/03/18 20:30 07/03/18 20:45 Temperature Pulse Rate 99 H 98 H 98 H Respiratory Rate 17 16 21 Blood Pressure 104/57 L Pulse Oximetry 96 96 96 07/03/18 21:00 07/03/18 21:15 07/03/18 21:30 Temperature Pulse Rate 96 H 95 H 97 H Respiratory Rate 16 18 21 Blood Pressure 112/58 L 123/55 L 110/52 L Pulse Oximetry 97 97 98 07/03/18 21:45 07/03/18 22:00 07/03/18 22:15 Temperature Pulse Rate 98 H 99 H 99 H Respiratory Rate 16 17 17 Blood Pressure 107/54 L 112/53 L 106/57 L Pulse Oximetry 99 99 98 07/03/18 22:30 07/03/18 22:45 07/03/18 23:00 Temperature Pulse Rate 100 H 97 H 97 H Respiratory Rate 18 16 16 Blood Pressure 109/62 99/55 L 118/59 L Pulse Oximetry 98 98 98 07/03/18 23:15 07/03/18 23:30 07/03/18 23:45 Temperature Pulse Rate 97 H 98 H 96 H Respiratory Rate 18 16 16 Blood Pressure 114/54 L 105/58 L 94/58 L Pulse Oximetry 98 98 98 07/04/18 00:00 07/04/18 00:15 07/04/18 00:30 Temperature 98.6 F Pulse Rate 96 H 97 H 96 H Respiratory Rate 18 16 15 Blood Pressure 97/59 L 120/59 L 105/61 Pulse Oximetry 98 98 98 07/04/18 00:45 07/04/18 01:00 07/04/18 01:15 Temperature Pulse Rate 95 H 97 H 96 H Respiratory Rate 15 16 15 Blood Pressure 108/60 90/61 L 93/59 L Pulse Oximetry 98 98 98 07/04/18 01:30 07/04/18 01:45 07/04/18 02:00 Temperature Pulse Rate 97 H 96 H 95 H Respiratory Rate 15 18 16 Blood Pressure 100/59 L 99/59 L 102/63 Pulse Oximetry 98 98 98 07/04/18 02:15 07/04/18 02:30 07/04/18 02:45 Temperature Pulse Rate 97 H 96 H 98 H Respiratory Rate 15 15 16 Blood Pressure 106/67 92/63 L 95/60 L Pulse Oximetry 98 98 98 07/04/18 03:00 07/04/18 03:15 07/04/18 03:30 Temperature Pulse Rate 100 H 98 H 95 H Respiratory Rate 17 16 15 Blood Pressure 102/60 98/55 L 98/56 L Pulse Oximetry 97 98 98 07/04/18 03:45 07/04/18 04:00 07/04/18 04:15 Temperature 98.4 F Pulse Rate 96 H 96 H 97 H Respiratory Rate 15 15 15 Blood Pressure 101/55 L 99/64 L 106/64 Pulse Oximetry 98 97 97 07/04/18 04:30 07/04/18 04:45 07/04/18 05:00 Temperature Pulse Rate 96 H 96 H 99 H Respiratory Rate 15 15 17 Blood Pressure 103/55 L 105/57 L 109/61 Pulse Oximetry 97 98 96 07/04/18 05:15 07/04/18 05:30 07/04/18 05:45 Temperature Pulse Rate 98 H 95 H 96 H Respiratory Rate 18 17 23 Blood Pressure 107/62 101/58 L 110/65 Pulse Oximetry 95 96 96 07/04/18 06:00 07/04/18 06:15 07/04/18 06:30 Temperature Pulse Rate 95 H 95 H 94 H Respiratory Rate 23 18 16 Blood Pressure 101/60 103/60 104/59 L Pulse Oximetry 96 96 96 07/04/18 06:45 07/04/18 07:00 07/04/18 07:15 Temperature Pulse Rate 95 H 95 H 95 H Respiratory Rate 19 19 17 Blood Pressure 99/55 L 102/63 101/60 Pulse Oximetry 96 96 96 07/04/18 07:30 07/04/18 07:45 07/04/18 08:00 Temperature 97.7 F Pulse Rate 95 H 96 H 96 H Respiratory Rate 17 18 22 Blood Pressure 114/65 104/56 L 114/58 L Pulse Oximetry 96 96 96 07/04/18 08:15 07/04/18 08:30 07/04/18 08:45 Temperature Pulse Rate 98 H 96 H 96 H Respiratory Rate 19 20 19 Blood Pressure 109/64 94/67 L 107/69 Pulse Oximetry 95 96 96 07/04/18 09:00 07/04/18 09:15 07/04/18 09:30 Temperature Pulse Rate 96 H 95 H 96 H Respiratory Rate 18 18 19 Blood Pressure 107/66 106/58 L 112/61 Pulse Oximetry 96 96 96 07/04/18 09:45 07/04/18 10:00 07/04/18 10:15 Temperature Pulse Rate 97 H 96 H 97 H Respiratory Rate 21 18 17 Blood Pressure 103/60 105/62 107/71 Pulse Oximetry 96 96 96 07/04/18 10:30 07/04/18 10:45 07/04/18 11:00 Temperature Pulse Rate 95 H 98 H 99 H Respiratory Rate 17 17 21 Blood Pressure 110/61 104/59 L 105/52 L Pulse Oximetry 97 96 96 07/04/18 11:15 07/04/18 11:30 07/04/18 11:45 Temperature Pulse Rate 99 H 98 H 96 H Respiratory Rate 18 21 16 Blood Pressure 104/55 L 100/61 98/57 L Pulse Oximetry 96 96 96 07/04/18 12:00 07/04/18 12:15 Temperature 97.6 F Pulse Rate 97 H 99 H Respiratory Rate 18 18 Blood Pressure 100/61 101/63 Pulse Oximetry 95 93 L Intake & Output 07/03/18 07/04/18 07/04/18 18:59 06:59 18:59 Intake Total 3281.5 / 3281.5 1800 / 1800 990 / 990 Output Total 775 / 775 650 / 650 Balance 2506.5 / 2506.5 1150 / 1150 990 / 990 Weight 74.5 kg Intake: IV 2895.5 / 2895.5 1800 / 1800 990 / 990 SandoSTATIN Inj 500 MCG In NS 500.5 / 500.5 450 / 450 Inj 500 ML @ 25 MCG/HR 25.02 mls/hr IV.CONT .Q20H1M [facility] Rx#: [id number] Protonix Inj 80 MG In NS Inj 145 / 145 200 / 200 80 / 80 100 ML @ 10 mls/hr IV.CONT Q10H [facility] Rx#:[id number] Flexbumin 25% Inj 50 ML @ 60 100 / 100 150 / 150 mls/hr IV.SIG TID [facility] Rx#: [id number] Diflucan 100 mg Premix Bag 50 50 / 50 50 / 50 ML @ 50 mls/hr IV.SIG Q24H [facility] Rx#:[id number] LR 1000 mL Inj 1,000 ML @ 75 900 / 900 900 / 900 mls/hr IV.SIG .[id number] [facility] Rx#: [id number] Mycamine Inj 100 MG In NS Inj 100 / 100 100 / 100 100 ML @ 100 mls/hr IV.SIG Q24H [facility] Rx#:[id number] Levophed-Dextrose 4 mg/250 ml 500 / 500 Drip 4 mg In 250 ml @ 5 MCG/MIN 18.75 mls/hr IV.SIG TITRATE PRN Rx#:[id number] Potassium Phosphate Inj 30 MMOL 260 / 260 In NS Inj 250 ML @ 42 mls/hr IV.SIG UNSCH PRN Rx#:[id number] Rocephin Inj 1,000 MG In NS Inj 100 / 100 100 / 100 100 ML @ 200 mls/hr IV.SIG Q24H [facility] Rx#:[id number] Anesthesia Amount 100 / 100 Intake (Blood Product) Amt 286 / 286 Plt Pheresis A Leukoreduced 0 / 0 Unit [id number] Plt Pheresis A Leukoreduced 286 / 286 Unit [id number] Output: Urine 650 / 650 Urine Amount (Catheter) 775 / 775 Indwelling Urethral Catheter 775 / 775 Other: Date of Last Bowel Movement 07/03/18 07/03/18 07/03/18 # Bowel Movements 2 - Constitutional thin, cachectic, chronically ill appearing - Routine HEENT Exam Head: Present: normocephalic ENT: Present: mucous membranes moist - Routine Neck Exam Present: supple - Routine Respiratory Exam Present: CTA bilaterally - Routine Cardiovascular Exam Present: RRR - Routine Abdominal Exam Present: soft, normoactive bowel sounds - Routine Extremities Exam Present: pulses intact - Routine Skin Exam Present: intact - Routine Neurological Exam Present: altered mental status - Urinary Catheter Management Condom Cath placed during this visit: yes Reason for continuing: Hourly intake/output Insertion date: 07/02/18 Indwelling Urethral Catheter Cath placed during this visit: yes Reason for continuing: Hourly intake/output Insertion date: 07/02/18 Results - Labs CBC & Chem 7: 07/04/18 05:15 07/04/18 05:15 Laboratory Results - last 24 hr 07/03/18 07/03/18 07/03/18 13:00 18:58 22:13 WBC 7.4 RBC 2.45 L Hgb 8.6 L Hct 24.9 L MCV 101.7 H MCH 35.2 H MCHC 34.6 RDW 29.4 H Plt Count 55 L MPV 8.3 Prelim Diff (Auto) Slide review pending Neut % (Auto) 92.7 H Lymph % (Auto) 4.8 L [place] % (Auto) 1.9 Eos % (Auto) 0.3 Baso % (Auto) 0.3 Neut # (Auto) 6.9 Lymph # (Auto) 0.4 L [place] # (Auto) 0.1 Eos # (Auto) 0.0 Baso # (Auto) 0.0 WBC Differential Manual diff final Diff Scan Seg Neuts % (Manual) 92 H Band Neuts % (Manual) 5 Lymphocytes % (Manual) 2 L Monocytes % (Manual) 1 Abs Neuts (Manual) 7.2 Differential Comment . Platelet Estimate Low L Platelet Morphology Normal Dimorphic RBCs Present H Pappenheimer Bodies Present H Ovalocytes 1+ H [place] Cells 1+ H Sodium 152 H Potassium 3.9 Chloride 120 H Carbon Dioxide 25.8 Anion Gap 6 BUN 59 H Creatinine 1.59 H Estimated GFR 45 L POC Glucose 92 Random Glucose 81 Calcium 9.3 Total Bilirubin AST ALT Alkaline Phosphatase Ammonia Total Protein Albumin 07/04/18 07/04/18 07/04/18 00:21 05:15 05:15 WBC RBC Hgb 9.3 L Hct 26.7 L MCV MCH MCHC RDW Plt Count MPV Prelim Diff (Auto) Neut % (Auto) Lymph % (Auto) [place] % (Auto) Eos % (Auto) Baso % (Auto) Neut # (Auto) Lymph # (Auto) [place] # (Auto) Eos # (Auto) Baso # (Auto) WBC Differential Diff Scan Seg Neuts % (Manual) Band Neuts % (Manual) Lymphocytes % (Manual) Monocytes % (Manual) Abs Neuts (Manual) Differential Comment Platelet Estimate Platelet Morphology Dimorphic RBCs Pappenheimer Bodies Ovalocytes [place] Cells Sodium 154 H Potassium 3.5 Chloride 120 H Carbon Dioxide 24.4 Anion Gap 10 BUN 57 H Creatinine 1.47 H Estimated GFR 50 L POC Glucose Random Glucose 78 Calcium 10.2 H D Total Bilirubin 23.3 H AST 23 ALT 24 Alkaline Phosphatase 67 Ammonia 72 H Total Protein 4.7 L Albumin 2.5 L 07/04/18 05:15 WBC 9.2 RBC 2.63 L Hgb 9.4 L Hct 26.8 L MCV 102.0 H MCH 35.7 H MCHC 35.0 RDW 29.6 H Plt Count 49 L MPV 8.8 Prelim Diff (Auto) Slide review pending Neut % (Auto) 94.7 H Lymph % (Auto) 3.1 L [place] % (Auto) 2.1 Eos % (Auto) 0.1 Baso % (Auto) 0.0 Neut # (Auto) 8.7 H Lymph # (Auto) 0.3 L [place] # (Auto) 0.2 Eos # (Auto) 0.0 Baso # (Auto) 0.0 WBC Differential . Diff Scan Auto diff confirmed Seg Neuts % (Manual) Band Neuts % (Manual) Lymphocytes % (Manual) Monocytes % (Manual) Abs Neuts (Manual) Differential Comment . Platelet Estimate Low L Platelet Morphology Normal Dimorphic RBCs Present H Pappenheimer Bodies Ovalocytes 2+ H [place] Cells Sodium Potassium Chloride Carbon Dioxide Anion Gap BUN Creatinine Estimated GFR POC Glucose Random Glucose Calcium Total Bilirubin AST ALT Alkaline Phosphatase Ammonia Total Protein Albumin Microbiology 07/01/18 18:00 Blood - Peripheral Aerobic Blood Culture - Preliminary No growth in 3 days 07/01/18 18:00 Blood - Peripheral Anaerobic Blood Culture - Preliminary No growth in 3 days 07/01/18 17:50 Blood - Peripheral Aerobic Blood Culture - Preliminary No growth in 3 days 07/01/18 17:50 Blood - Peripheral Anaerobic Blood Culture - Preliminary No growth in 3 days Assessment and Plan (1) Liver cirrhosis Status: Acute Code(s): K74.60 - Unspecified cirrhosis of liver (2) Hep C w/o coma, chronic Status: Chronic Code(s): B18.2 - Chronic viral hepatitis C - Plan Liver cirrhosis Chronic hepatitis C/acute hepatitis B-patient restarted on antiviral for same ( Tenofovir). Encephalopathy UGI bleeding secondary to DU, Endoclip applied. Plan -Liquid diet and advance as tolerated -Keep platelets above 50k -Monitor for bleeding -Transfuse as needed -Continue IV Protonix -Monitor hemoglobin and hematocrit closely -Monitor coagulation studies closely -Supportive care -Plan of care as per critical care medicine (1) Liver cirrhosis Qualifiers: Hepatic cirrhosis type: other cirrhosis Qualified Code(s): K74.69 - Other cirrhosis of liver
[2018-07-04] MEDS: Escitalopram 10 MG Tablet PO SCH (21:19)
[2018-07-05] MEDS: Pantoprazole Inj 80 MG in Sodium Chlor 0.9% Inj 100 ML IV.CONT SCH ×2 (05:10→15:32)
[2018-07-05 05:44] LABS: Baso % (Auto) 0.1 % (0.0-2.0); Eos % (Auto) 0.1 % (0.0-4.0); Hematocrit 29.2 % (39.0-51.0); Hemoglobin 10.1 gm/dL (13.0-17.0); Lymph # (Auto) 0.3 th/mm3 (1.0-4.8); Lymph % (Auto) 2.6 % (9.0-44.0); Mean Corpuscular HGB Conc 34.7 % (32.0-36.0); Mean Corpuscular Hemoglobin 35.3 pg (27.0-34.0); Mean Corpuscular Volume 101.6 fL (80.0-100.0); Mean Platelet Volume 9.8 fL (7.0-11.0); Mono # (Auto) 0.4 th/mm3 (0.0-0.9); Mono % (Auto) 3.1 % (0.0-8.0); Neut # (Auto) 10.8 th/mm3 (1.8-7.7); Neut % (Auto) 94.1 % (16.0-70.0); Platelet Count 40 th/mm3 (150-450); Red Blood Count 2.87 mil/mm3 (4.50-5.90); Red Cell Distribution Width 29.5 % (11.6-17.2); White Blood Count 11.5 th/mm3 (4.0-11.0)
[2018-07-05 06:07] LABS: Alanine Aminotransferase 25 U/L (12-78)
[2018-07-05 06:13] LABS: Albumin 2.6 g/dL (3.4-5.0); Alkaline Phosphatase 82 U/L (45-117); Anion Gap 11 meq/L (5-15); Aspartate Aminotransferase 33 U/L (15-37); Blood Urea Nitrogen 56 mg/dL (7-18); Calcium 10.8 mg/dL (8.5-10.1); Chloride 121 meq/L (98-107); Glomerular Filtration Rate 45 mL/min (>89); Glucose,Random 80 mg/dL (74-106); Potassium 3.2 meq/L (3.5-5.1); Sodium 154 meq/L (136-145); Total Protein 4.9 g/dL (6.4-8.2)
[2018-07-05 06:21] LABS: Dimorphic RBC Present; Lymphocytes 3 % (9-44); Monocytes 4 % (0-8)
[2018-07-05 06:29] LABS: Acanthocytes 1+; Ovalocytes 1+; Platelet Morphology Normal (Normal)
[2018-07-05] MEDS: Folic Acid 1 MG Tablet PO SCH (08:38)
[2018-07-05] MEDS: rifAXIMin 550 MG Tablet PO SCH ×2 (08:38→23:53)
[2018-07-05] MEDS: Tenofovir 300 MG Tablet PO SCH (08:39)
[2018-07-05] MEDS: Albumin Human 25% Inj 50 ML IV.SIG SCH ×2 (08:39→12:02)
[2018-07-05] MEDS: Senna/Docusate Sodium 8.6/50 MG Tablet PO SCH ×2 (08:39→21:00)
[2018-07-05] MEDS: Phytonadione Inj 10 MG/ML Vial SQ SCH (08:39)
[2018-07-05] MEDS: Potassium Chlor 20 mEq Premix 20 MEQ/100 ML PIGGYBACK IV.SIG PRN ×2 (08:43→11:36)
[2018-07-05] MEDS: Sodium Chloride 0.9% 2 ML Flush BID IV.FLUSH SCH ×2 (11:33→23:37)
[2018-07-05] MEDS: Ferrous Sulfate 325 MG Tablet PO SCH ×2 (11:33→17:03)
--- NOTE | 2018-07-05 14:17 | P.PNCC ---
Subjective Subjective Remarks/Hospital Course: 07/01: Patient is a 58 y/o male with history of Hep B, Hep C, and liver cirrhosis admitted on 04/29 after being transferred from [facility] for staghorn renal calculus complicated by UTI. Urology was consulted at that time, deemed no surgical intervention needed at this time. Patient had been treated with IV antibiotics and antifungals for UTI. GI was consulted for management of end-stage liver disease and pancytopenia. Last EGD and colonoscopy in November 2016, portal hypertensive gastropathy noted on EGD. During the hospital course, he continued to decline with worsening liver function and coagulopathy. Today's a.m. labs showed a hemoglobin 8 platelet 29 INR 4.6 bilirubin of 20 BUN 57 with a creatinine of 1.66. Today evening patient developed large melanotic stools and became hypotensive a stat hemoglobin showed 6.6. I discussed with the medicine MICROBIOLOGY DIRECTOR stat transfusion ordered for 2 units of PRBC, 2 units of FFP, 2 pack units of platelets, 1 pack units of cryoprecipitate. Patient continues to have worsening hypotension and was moved to the ICU critical care medicine was consulted I evaluated the patient in the ICU emergently. Currently systolic blood pressures in the 70s, Levophed had been started currently at 5 mcg/min. Patient is very encephalopathy unable to follow commands. Type and crossmatch, followed by blood transfusion is pending at this time. Palliative care is following, and at this time patient is a full code. Dr. Bonner from GI recommends PPI and supportive care. In addition to blood product resuscitation, I will started on octreotide infusion and Rocephin for SBP prophylaxis. Prognosis is guarded at this time. I suspect a variceal bleed. From GI notes it appears like patient had been evaluated for liver transplant at [facility] and had been declined 07/02: Blood pressure borderline. Received 4 units PRBCs last night along with 2 units FFP, 1 unit cryoprecipitate, 2 units platelets. Hemoglobin greater than 9 currently. Awaiting EGD and colonoscopy per GI. Patient is cleared for endoscopy per critical care. 07/03: Patient underwent EGD. Was found to have a duodenal ulcer with large visible vessel. No active bleeding noted. Clip was placed over vessel. Old blood was suctioned out from stomach during EGD. Patient remains on minimal Levophed for pressor support. Remains encephalopathic, on nasal cannula. 07/04: Patient's care complicated by end-stage hepatic cirrhosis. Coagulation profile again deteriorating. Bilirubin remains elevated. This is a clear-cut hospice situation with little hope for any type of meaningful existence during the remainder of the terminal stages. 07/05: This gentleman is actively dying from end-stage liver disease. He has severe protein calorie malnutrition and a coagulopathy. He is severely encephalopathic and his bilirubin is elevated above 20. Objective Vital Signs / I&O: Vital Signs 07/04/18 14:15 07/04/18 14:30 07/04/18 14:45 Temperature Pulse Rate 101 H 96 H 95 H Respiratory Rate 18 18 16 Blood Pressure 103/65 97/66 L 102/68 Pulse Oximetry 92 L 94 L 94 L 07/04/18 15:00 07/04/18 15:15 07/04/18 15:30 Temperature Pulse Rate 95 H 94 H 94 H Respiratory Rate 20 20 19 Blood Pressure 103/62 97/63 L 100/57 L Pulse Oximetry 95 95 97 07/04/18 15:45 07/04/18 16:00 07/04/18 16:15 Temperature 97.7 F Pulse Rate 96 H 94 H 94 H Respiratory Rate 20 18 18 Blood Pressure 100/56 L 102/57 L 90/56 L Pulse Oximetry 98 98 97 07/04/18 16:30 07/04/18 16:45 07/04/18 17:00 Temperature Pulse Rate 97 H 97 H 95 H Respiratory Rate 19 18 22 Blood Pressure 95/60 L 81/56 L Pulse Oximetry 98 98 98 07/04/18 17:02 07/04/18 17:15 07/04/18 17:30 Temperature Pulse Rate 96 H 96 H 96 H Respiratory Rate 21 19 25 H Blood Pressure 102/70 110/58 L 98/53 L Pulse Oximetry 98 99 99 07/04/18 17:45 07/04/18 18:00 07/04/18 18:15 Temperature Pulse Rate 95 H 98 H 98 H Respiratory Rate 20 21 26 H Blood Pressure 99/61 L 105/60 106/63 Pulse Oximetry 99 99 100 07/04/18 18:30 07/04/18 18:45 07/04/18 19:00 Temperature Pulse Rate 97 H 96 H 98 H Respiratory Rate 20 21 20 Blood Pressure 91/63 L 102/66 102/62 Pulse Oximetry 100 100 100 07/04/18 19:15 07/04/18 19:30 07/04/18 19:45 Temperature Pulse Rate 97 H 98 H 96 H Respiratory Rate 20 20 19 Blood Pressure 107/61 105/60 103/60 Pulse Oximetry 100 100 100 07/04/18 20:00 07/04/18 20:15 07/04/18 20:30 Temperature 98.8 F Pulse Rate 95 H 96 H 96 H Respiratory Rate 19 19 19 Blood Pressure 94/55 L 110/58 L 110/59 L Pulse Oximetry 100 100 100 07/04/18 20:45 07/04/18 21:00 07/04/18 21:15 Temperature Pulse Rate 96 H 95 H 96 H Respiratory Rate 20 21 21 Blood Pressure 100/58 L 101/56 L 99/56 L Pulse Oximetry 100 100 100 07/04/18 21:30 07/04/18 21:45 07/04/18 22:00 Temperature Pulse Rate 96 H 100 H 99 H Respiratory Rate 20 21 20 Blood Pressure 105/61 101/62 92/62 L Pulse Oximetry 100 97 98 07/04/18 22:15 07/04/18 22:30 07/04/18 22:45 Temperature Pulse Rate 99 H 99 H 96 H Respiratory Rate 19 20 18 Blood Pressure 102/66 97/63 L 101/61 Pulse Oximetry 98 98 98 07/04/18 23:00 07/04/18 23:15 07/04/18 23:30 Temperature Pulse Rate 96 H 96 H 96 H Respiratory Rate 19 19 19 Blood Pressure 96/57 L 98/59 L 99/60 L Pulse Oximetry 98 97 97 07/04/18 23:45 07/05/18 00:00 07/05/18 00:15 Temperature 98.2 F Pulse Rate 96 H 96 H 96 H Respiratory Rate 20 20 20 Blood Pressure 98/59 L 96/58 L 97/60 L Pulse Oximetry 97 97 97 07/05/18 00:30 07/05/18 00:45 07/05/18 01:00 Temperature Pulse Rate 97 H 98 H 97 H Respiratory Rate 18 21 19 Blood Pressure 94/61 L 105/64 100/56 L Pulse Oximetry 96 97 97 07/05/18 01:15 07/05/18 01:30 07/05/18 01:45 Temperature Pulse Rate 97 H 97 H 101 H Respiratory Rate 19 21 22 Blood Pressure 96/57 L 96/56 L 99/60 L Pulse Oximetry 97 97 98 07/05/18 02:00 07/05/18 02:15 07/05/18 02:30 Temperature Pulse Rate 104 H 105 H 106 H Respiratory Rate 41 H 23 23 Blood Pressure 105/62 104/64 113/68 Pulse Oximetry 100 95 95 07/05/18 02:45 07/05/18 03:00 07/05/18 03:15 Temperature Pulse Rate 108 H 109 H 109 H Respiratory Rate 32 H 22 29 H Blood Pressure 102/63 106/64 107/66 Pulse Oximetry 95 96 95 07/05/18 03:30 07/05/18 03:45 07/05/18 04:00 Temperature 98.4 F Pulse Rate 109 H 110 H 110 H Respiratory Rate 23 22 22 Blood Pressure 110/68 114/69 106/59 L Pulse Oximetry 95 95 95 07/05/18 04:15 07/05/18 04:30 07/05/18 04:45 Temperature Pulse Rate 108 H 107 H 107 H Respiratory Rate 22 23 22 Blood Pressure 107/64 109/61 101/62 Pulse Oximetry 94 L 95 95 07/05/18 05:00 07/05/18 05:15 07/05/18 05:30 Temperature Pulse Rate 107 H 104 H 103 H Respiratory Rate 22 21 22 Blood Pressure 92/61 L 99/63 L 94/61 L Pulse Oximetry 95 95 95 07/05/18 05:45 07/05/18 06:00 07/05/18 06:15 Temperature Pulse Rate 100 H 103 H 100 H Respiratory Rate 21 22 22 Blood Pressure 99/66 L 99/59 L 98/64 L Pulse Oximetry 95 95 95 07/05/18 06:30 07/05/18 06:45 07/05/18 07:00 Temperature Pulse Rate 103 H 100 H 104 H Respiratory Rate 22 21 22 Blood Pressure 96/57 L 92/61 L 90/62 L Pulse Oximetry 95 95 95 07/05/18 07:15 07/05/18 07:30 07/05/18 07:45 Temperature Pulse Rate 104 H 103 H 104 H Respiratory Rate 22 21 22 Blood Pressure 97/72 L 100/68 99/61 L Pulse Oximetry 95 95 95 07/05/18 08:00 07/05/18 08:15 07/05/18 08:30 Temperature Pulse Rate 105 H 102 H 103 H Respiratory Rate 23 22 22 Blood Pressure 101/68 104/71 92/67 L Pulse Oximetry 94 L 95 95 07/05/18 08:45 07/05/18 09:00 07/05/18 09:15 Temperature Pulse Rate 106 H 104 H 108 H Respiratory Rate 22 22 23 Blood Pressure 98/72 L 104/66 111/66 Pulse Oximetry 94 L 94 L 81 L 07/05/18 09:30 07/05/18 09:45 07/05/18 10:00 Temperature Pulse Rate 98 H 94 H 94 H Respiratory Rate 20 20 19 Blood Pressure 98/58 L 87/53 L 85/54 L Pulse Oximetry 94 L 93 L 93 L 07/05/18 10:15 07/05/18 10:30 07/05/18 10:45 Temperature Pulse Rate 95 H 99 H 97 H Respiratory Rate 19 21 23 Blood Pressure 89/55 L 81/55 L 94/58 L Pulse Oximetry 93 L 91 L 96 07/05/18 11:00 07/05/18 11:15 07/05/18 11:30 Temperature Pulse Rate 97 H 97 H 97 H Respiratory Rate 20 21 23 Blood Pressure 90/56 L 88/55 L 80/53 L Pulse Oximetry 95 93 L 93 L 07/05/18 11:45 07/05/18 12:00 07/05/18 12:15 Temperature 94.8 F L 95.0 F L Pulse Rate 97 H 109 H 114 H Respiratory Rate 21 41 H 35 H Blood Pressure 85/55 L 104/59 L 109/55 L Pulse Oximetry 93 L 90 L 92 L 07/05/18 12:30 07/05/18 12:45 07/05/18 13:00 Temperature 95.4 F L 95.5 F L 95.9 F L Pulse Rate 115 H 110 H 110 H Respiratory Rate 25 H 26 H 27 H Blood Pressure 86/52 L 86/54 L 87/50 L Pulse Oximetry 91 L 89 L 90 L 07/05/18 13:15 07/05/18 13:30 07/05/18 13:45 Temperature 96.1 F L 96.3 F L 96.6 F L Pulse Rate 110 H 109 H 110 H Respiratory Rate 28 H 29 H 31 H Blood Pressure 79/53 L 80/53 L 93/50 L Pulse Oximetry 89 L 91 L 91 L 07/05/18 14:00 Temperature 97.0 F L Pulse Rate 111 H Respiratory Rate 59 H Blood Pressure 81/52 L Pulse Oximetry 89 L Intake & Output 07/04/18 07/05/18 07/05/18 18:59 06:59 18:59 Intake Total 2240 / 2240 1650 / 1650 200 / 200 Output Total 675 / 675 450 / 450 Balance 1565 / 1565 1200 / 1200 200 / 200 Weight 74.5 kg Intake: IV 1940 / 1940 1650 / 1650 200 / 200 SandoSTATIN Inj 500 MCG In NS 450 / 450 Inj 500 ML @ 25 MCG/HR 25.02 mls/hr IV.CONT .Q20H1M NIRAJ Rx#: [id number] Protonix Inj 80 MG In NS Inj 80 / 80 200 / 200 100 ML @ 10 mls/hr IV.CONT Q10H NIRAJ Rx#:[id number] Flexbumin 25% Inj 50 ML @ 60 200 / 200 100 / 100 mls/hr IV.SIG TID NIRAJ Rx#: [id number] Diflucan 100 mg Premix Bag 50 100 / 100 ML @ 50 mls/hr IV.SIG Q24H [facility]AJ Rx#:[id number] LR 1000 mL Inj 1,000 ML @ 75 850 / 850 1000 / 1000 mls/hr IV.SIG .[id number] NIRAJ Rx#: [id number] Mycamine Inj 100 MG In NS Inj 100 / 100 100 ML @ 100 mls/hr IV.SIG Q24H [facility] Rx#:[id number] Levophed-Dextrose 4 mg/250 ml 250 / 250 Drip 4 mg In 250 ml @ 5 MCG/MIN 18.75 mls/hr IV.SIG TITRATE PRN Rx#:[id number] KCl 20 mEq Premix Inj 20 meq In 100 / 100 100 ml @ 50 mls/hr IV.SIG Q2H PRN Rx#:[id number] Potassium Phosphate Inj 30 MMOL 260 / 260 In NS Inj 250 ML @ 42 mls/hr IV.SIG UNSCH PRN Rx#:[id number] Rocephin Inj 1,000 MG In NS Inj 100 / 100 100 ML @ 200 mls/hr IV.SIG Q24H NIRAJ Rx#:[id number] Tube Irrigant 300 / 300 Output: Urine Amount (Catheter) 675 / 675 450 / 450 Indwelling Urethral Catheter 675 / 675 450 / 450 Other: Date of Last Bowel Movement 07/03/18 07/04/18 07/04/18 # Bowel Movements 0 Result Diagrams: 07/05/18 05:19 07/05/18 17:27 Objective Remarks: Narrative: GENERAL: Cachectic, chronically ill appearing male patient. Hepatic encephalopathy. Unresponsive. SKIN: Warm and dry. +Jaundiced. HEAD: Normocephalic. EYES: Pupils equal and round. Bilateral conjunctival icterus ENT: No nasal bleeding or discharge. Dry mucus membranes. Airway open and unobstructed. CARDIOVASCULAR: Regular rate and rhythm. Systolic murmur auscultated. Normal S1 -S2, no JVD. RESPIRATORY: No accessory muscle use. Air entry equal. No adventitious sounds. GASTROINTESTINAL: Abdomen soft, non-tender, mildly distended. Quiet. MUSCULOSKELETAL: Extremities without clubbing, cyanosis, or edema. Tepid, adequately perfused. NEUROLOGICAL: Patient is encephalopathic and largely unresponsive. Opens eyes but does not follow commands. No focal deficits. Assessment and Plan - Assessment and Plan Plan: ASSESSMENT: Hemorrhagic shock GI bleed most likely variceal Anemia requiring transfusion Severe coagulopathy with elevated INR Thrombocytopenia Hyperfibrinogenemia Hepatic encephalopathy UTI Acute kidney injury, Possible hepatorenal syndrome. Hepatitis B, hepatitis C Alcohol dependence PLAN: NEURO: -Receiving Xifaxan and lactulose -Hold while n.p.o. -Minimize sedation -Continue to supplement multivitamin bag -Largely unresponsive today 07/05 RESP: -DuoNeb as needed -Protecting airway at this time -Acceptable respiratory pattern. CV: -Discontinue Levophed to keep map above 60 -Normal saline 1 L bolus maintenance fluid LR at 35 per hour -Blood product resuscitation as below -Continue IV albumin GI/HEME: -N.p.o., IV Protonix 80 mg bolus and infusion at 8 mg/h -Octreotide infusion stopped following EGD on 07/03 as patient did not have any varices. -Rocephin for SBP prophylaxis -Transfused 4 units of PRBC, 2 units of FFP, 2 pack units of platelets, cryoprecipitate and calcium 2 g -Serial hemoglobin check repeat coags in a.m. -Found to have duodenal ulcer with visible vessel which was clipped by GI during EGD on 07/03. -Pancytopenia and coagulopathy secondary to liver disease S/p treatment with Harvoni and recently tenofovir by GI with diagnosis of hepatitis B. The patient not compliant. Worked up in [facility] for liver transplant 2016 but was not a candidate due to social issues and lack of support. Last EGD and colonoscopy in November 2016, portal hypertensive gastropathy -Continue lactulose. -Follow serial hemoglobin. : -Monitor renal function closely. Strict intake output ID: -Rocephin for GI prophylaxis -Currently on Diflucan for Shante UTI, urine cx 04/30 and 06/28 C Glab[place]- change to Micafungin ENDO: -Electrolyte replacement PROPH: -Bilateral lower extremity SCDs. IV Protonix. Chemical DVT prophylaxis is contraindicated due to high risk of bleeding. INR already prolonged. LINES: -Right subclavian central line placed 07/01/2018 Overall impression: This gentleman is critically ill with end-stage hepatic failure complicated by coagulopathy and encephalopathy. He will likely succumb to catastrophic hemorrhage but is unlikely to be much more alert at any time. I anticipate multiorgan dysfunction syndrome soon. His perfusion is quite poor and we will need to throttle back on his vasopressors and attempt to sustain blood pressure with volume. MAP > 60 is acceptable. At present the vasopressors and incompatible with his survival. By any stretch he is critically ill and declining rapidly. Critical care time 50 minutes aside from procedures.
--- NOTE | 2018-07-05 18:48 | P.PNGI ---
Subjective Interval history: No evidence of further bleeding, more awake . Physical Exam Vital signs: Vital Signs 07/04/18 19:00 07/04/18 19:15 07/04/18 19:30 Temperature Pulse Rate 98 H 97 H 98 H Respiratory Rate 20 20 20 Blood Pressure 102/62 107/61 105/60 Pulse Oximetry 100 100 100 07/04/18 19:45 07/04/18 20:00 07/04/18 20:15 Temperature 98.8 F Pulse Rate 96 H 95 H 96 H Respiratory Rate 19 19 19 Blood Pressure 103/60 94/55 L 110/58 L Pulse Oximetry 100 100 100 07/04/18 20:30 07/04/18 20:45 07/04/18 21:00 Temperature Pulse Rate 96 H 96 H 95 H Respiratory Rate 19 20 21 Blood Pressure 110/59 L 100/58 L 101/56 L Pulse Oximetry 100 100 100 07/04/18 21:15 07/04/18 21:30 07/04/18 21:45 Temperature Pulse Rate 96 H 96 H 100 H Respiratory Rate 21 20 21 Blood Pressure 99/56 L 105/61 101/62 Pulse Oximetry 100 100 97 07/04/18 22:00 07/04/18 22:15 07/04/18 22:30 Temperature Pulse Rate 99 H 99 H 99 H Respiratory Rate 20 19 20 Blood Pressure 92/62 L 102/66 97/63 L Pulse Oximetry 98 98 98 07/04/18 22:45 07/04/18 23:00 07/04/18 23:15 Temperature Pulse Rate 96 H 96 H 96 H Respiratory Rate 18 19 19 Blood Pressure 101/61 96/57 L 98/59 L Pulse Oximetry 98 98 97 07/04/18 23:30 07/04/18 23:45 07/05/18 00:00 Temperature 98.2 F Pulse Rate 96 H 96 H 96 H Respiratory Rate 19 20 20 Blood Pressure 99/60 L 98/59 L 96/58 L Pulse Oximetry 97 97 97 07/05/18 00:15 07/05/18 00:30 07/05/18 00:45 Temperature Pulse Rate 96 H 97 H 98 H Respiratory Rate 20 18 21 Blood Pressure 97/60 L 94/61 L 105/64 Pulse Oximetry 97 96 97 07/05/18 01:00 07/05/18 01:15 07/05/18 01:30 Temperature Pulse Rate 97 H 97 H 97 H Respiratory Rate 19 19 21 Blood Pressure 100/56 L 96/57 L 96/56 L Pulse Oximetry 97 97 97 07/05/18 01:45 07/05/18 02:00 07/05/18 02:15 Temperature Pulse Rate 101 H 104 H 105 H Respiratory Rate 22 41 H 23 Blood Pressure 99/60 L 105/62 104/64 Pulse Oximetry 98 100 95 07/05/18 02:30 07/05/18 02:45 07/05/18 03:00 Temperature Pulse Rate 106 H 108 H 109 H Respiratory Rate 23 32 H 22 Blood Pressure 113/68 102/63 106/64 Pulse Oximetry 95 95 96 07/05/18 03:15 07/05/18 03:30 07/05/18 03:45 Temperature Pulse Rate 109 H 109 H 110 H Respiratory Rate 29 H 23 22 Blood Pressure 107/66 110/68 114/69 Pulse Oximetry 95 95 95 07/05/18 04:00 07/05/18 04:15 07/05/18 04:30 Temperature 98.4 F Pulse Rate 110 H 108 H 107 H Respiratory Rate 22 22 23 Blood Pressure 106/59 L 107/64 109/61 Pulse Oximetry 95 94 L 95 07/05/18 04:45 07/05/18 05:00 07/05/18 05:15 Temperature Pulse Rate 107 H 107 H 104 H Respiratory Rate 22 22 21 Blood Pressure 101/62 92/61 L 99/63 L Pulse Oximetry 95 95 95 07/05/18 05:30 07/05/18 05:45 07/05/18 06:00 Temperature Pulse Rate 103 H 100 H 103 H Respiratory Rate 22 21 22 Blood Pressure 94/61 L 99/66 L 99/59 L Pulse Oximetry 95 95 95 07/05/18 06:15 07/05/18 06:30 07/05/18 06:45 Temperature Pulse Rate 100 H 103 H 100 H Respiratory Rate 22 22 21 Blood Pressure 98/64 L 96/57 L 92/61 L Pulse Oximetry 95 95 95 07/05/18 07:00 07/05/18 07:15 07/05/18 07:30 Temperature Pulse Rate 104 H 104 H 103 H Respiratory Rate 22 22 21 Blood Pressure 90/62 L 97/72 L 100/68 Pulse Oximetry 95 95 95 07/05/18 07:45 12/02/18 08:00 07/05/18 08:15 Temperature Pulse Rate 104 H 105 H 102 H Respiratory Rate 22 23 22 Blood Pressure 99/61 L 101/68 104/71 Pulse Oximetry 95 94 L 95 07/05/18 08:30 07/05/18 08:45 07/05/18 09:00 Temperature Pulse Rate 103 H 106 H 104 H Respiratory Rate 22 22 22 Blood Pressure 92/67 L 98/72 L 104/66 Pulse Oximetry 95 94 L 94 L 07/05/18 09:15 07/05/18 09:30 07/05/18 09:45 Temperature Pulse Rate 108 H 98 H 94 H Respiratory Rate 23 20 20 Blood Pressure 111/66 98/58 L 87/53 L Pulse Oximetry 81 L 94 L 93 L 07/05/18 10:00 07/05/18 10:15 07/05/18 10:30 Temperature Pulse Rate 94 H 95 H 99 H Respiratory Rate 19 19 21 Blood Pressure 85/54 L 89/55 L 81/55 L Pulse Oximetry 93 L 93 L 91 L 07/05/18 10:45 07/05/18 11:00 07/05/18 11:15 Temperature Pulse Rate 97 H 97 H 97 H Respiratory Rate 23 20 21 Blood Pressure 94/58 L 90/56 L 88/55 L Pulse Oximetry 96 95 93 L 07/05/18 11:30 07/05/18 11:45 07/05/18 12:00 Temperature 94.8 F L Pulse Rate 97 H 97 H 109 H Respiratory Rate 23 21 41 H Blood Pressure 80/53 L 85/55 L 104/59 L Pulse Oximetry 93 L 93 L 90 L 07/05/18 12:15 07/05/18 12:30 07/05/18 12:45 Temperature 95.0 F L 95.4 F L 95.5 F L Pulse Rate 114 H 115 H 110 H Respiratory Rate 35 H 25 H 26 H Blood Pressure 109/55 L 86/52 L 86/54 L Pulse Oximetry 92 L 91 L 89 L 07/05/18 13:00 07/05/18 13:15 07/05/18 13:30 Temperature 95.9 F L 96.1 F L 96.3 F L Pulse Rate 110 H 110 H 109 H Respiratory Rate 27 H 28 H 29 H Blood Pressure 87/50 L 79/53 L 80/53 L Pulse Oximetry 90 L 89 L 91 L 07/05/18 13:45 07/05/18 14:00 07/05/18 14:15 Temperature 96.6 F L 97.0 F L 97.2 F L Pulse Rate 110 H 111 H 111 H Respiratory Rate 31 H 59 H 46 H Blood Pressure 93/50 L 81/52 L 79/49 L Pulse Oximetry 91 L 89 L 91 L 07/05/18 14:25 07/05/18 14:30 07/05/18 14:35 Temperature 97.3 F L 97.5 F L 97.5 F L Pulse Rate 112 H 115 H 114 H Respiratory Rate 34 H 32 H 32 H Blood Pressure 62/41 L 66/39 L 64/39 L Pulse Oximetry 90 L 89 L 90 L 07/05/18 14:40 07/05/18 14:45 07/05/18 14:50 Temperature 97.7 F 97.7 F 97.9 F Pulse Rate 117 H 116 H 116 H Respiratory Rate 31 H 31 H 32 H Blood Pressure 63/43 L 61/41 L 64/42 L Pulse Oximetry 90 L 90 L 90 L 07/05/18 15:00 07/05/18 15:01 07/05/18 15:16 Temperature 98.1 F 98.1 F 98.4 F Pulse Rate 120 H 119 H 120 H Respiratory Rate 32 H 33 H 30 H Blood Pressure 61/38 L 62/39 L Pulse Oximetry 90 L 91 L 91 L 07/05/18 15:21 07/05/18 15:31 07/05/18 15:46 Temperature 98.6 F 99.1 F Pulse Rate 125 H 123 H Respiratory Rate 33 H 31 H Blood Pressure 86/53 L 63/41 L Pulse Oximetry 92 L 92 L 91 L 07/05/18 16:00 07/05/18 16:01 07/05/18 16:16 Temperature 99.3 F 99.3 F 99.5 F Pulse Rate 127 H 127 H Respiratory Rate 33 H 33 H Blood Pressure 67/39 L 71/39 L Pulse Oximetry 89 L 90 L 89 L 07/05/18 16:31 07/05/18 16:46 07/05/18 17:00 Temperature 99.3 F 99.3 F 99.1 F Pulse Rate 128 H 132 H 131 H Respiratory Rate 30 H 35 H 33 H Blood Pressure 86/52 L 88/53 L 90/55 L Pulse Oximetry 91 L 92 L 92 L 07/05/18 17:01 07/05/18 17:16 07/05/18 17:31 Temperature 99.1 F 99.3 F 99.3 F Pulse Rate 128 H 125 H 122 H Respiratory Rate 35 H 28 H 28 H Blood Pressure 90/55 L 93/58 L 67/46 L Pulse Oximetry 91 L 93 L 93 L 07/05/18 17:46 07/05/18 18:00 07/05/18 18:05 Temperature 99.1 F 99.0 F Pulse Rate 122 H 122 H 126 H Respiratory Rate 27 H 31 H 31 H Blood Pressure 76/53 L 66/46 L Pulse Oximetry 93 L 91 L 90 L 07/05/18 18:16 Temperature Pulse Rate 119 H Respiratory Rate 28 H Blood Pressure 84/51 L Pulse Oximetry 91 L Intake & Output 07/04/18 07/05/18 07/05/18 18:59 06:59 18:59 Intake Total 2240 / 2240 1650 / 1650 630 / 630 Output Total 675 / 675 450 / 450 150 / 150 Balance 1565 / 1565 1200 / 1200 480 / 480 Weight 74.5 kg Intake: IV 1940 / 1940 1650 / 1650 500 / 500 SandoSTATIN Inj 500 MCG In NS 450 / 450 Inj 500 ML @ 25 MCG/HR 25.02 mls/hr IV.CONT .Q20H1M NIRAJ Rx#: [id number] Protonix Inj 80 MG In NS Inj 80 / 80 200 / 200 100 / 100 100 ML @ 10 mls/hr IV.CONT Q10H NIRAJ Rx#:[id number] Flexbumin 25% Inj 50 ML @ 60 200 / 200 100 / 100 mls/hr IV.SIG TID NIRAJ Rx#: [id number] Diflucan 100 mg Premix Bag 50 100 / 100 50 / 50 ML @ 50 mls/hr IV.SIG Q24H NIRAJ Rx#:[id number] LR 1000 mL Inj 1,000 ML @ 75 850 / 850 1000 / 1000 mls/hr IV.SIG .[id number] NIRAJ Rx#: [id number] Mycamine Inj 100 MG In NS Inj 100 / 100 100 ML @ 100 mls/hr IV.SIG Q24H NIRAJ Rx#:[id number] Levophed-Dextrose 4 mg/250 ml 250 / 250 50 / 50 Drip 4 mg In 250 ml @ 5 MCG/MIN 18.75 mls/hr IV.SIG TITRATE PRN Rx#:[id number] KCl 20 mEq Premix Inj 20 meq In 200 / 200 100 ml @ 50 mls/hr IV.SIG Q2H PRN Rx#:[id number] Potassium Phosphate Inj 30 MMOL 260 / 260 In NS Inj 250 ML @ 42 mls/hr IV.SIG UNSCH PRN Rx#:[id number] Rocephin Inj 1,000 MG In NS Inj 100 / 100 100 ML @ 200 mls/hr IV.SIG Q24H NIRAJ Rx#:[id number] Tube Feeding 100 / 100 Tube Irrigant 300 / 300 30 / 30 Output: Urine Amount (Catheter) 675 / 675 450 / 450 150 / 150 Indwelling Urethral Catheter 675 / 675 450 / 450 150 / 150 Other: Date of Last Bowel Movement 07/03/18 07/04/18 07/05/18 # Bowel Movements 0 - Constitutional no acute distress - Routine HEENT Exam Head: Present: normocephalic, atraumatic - Routine Neck Exam Present: supple - Routine Respiratory Exam Present: CTA bilaterally - Routine Cardiovascular Exam Present: RRR - Routine Abdominal Exam Present: soft - Routine Extremities Exam Present: pulses intact - Routine Skin Exam Present: intact - Urinary Catheter Management Condom Cath placed during this visit: yes Reason for continuing: Hourly intake/output Insertion date: 07/02/18 Indwelling Urethral Catheter Cath placed during this visit: yes Reason for continuing: Hourly intake/output Insertion date: 07/02/18 Results - Labs CBC & Chem 7: 07/05/18 05:19 07/05/18 17:27 Laboratory Results - last 24 hr 07/04/18 07/05/18 07/05/18 22:24 05:19 05:19 WBC 11.5 H RBC 2.87 L Hgb 10.1 L Hct 29.2 L MCV 101.6 H MCH 35.3 H MCHC 34.7 RDW 29.5 H Plt Count 40 L MPV 9.8 Prelim Diff (Auto) Slide review pending Neut % (Auto) 94.1 H Lymph % (Auto) 2.6 L [place] % (Auto) 3.1 Eos % (Auto) 0.1 Baso % (Auto) 0.1 Neut # (Auto) 10.8 H Lymph # (Auto) 0.3 L [place] # (Auto) 0.4 Eos # (Auto) 0.0 Baso # (Auto) 0.0 WBC Differential Manual diff final Seg Neuts % (Manual) 83 H Band Neuts % (Manual) 10 H Lymphocytes % (Manual) 3 L Monocytes % (Manual) 4 Abs Neuts (Manual) 10.7 H Differential Comment . Platelet Estimate Low L Platelet Morphology Normal Dimorphic RBCs Present H Ovalocytes 1+ H Acanthocytes (Spur) 1+ H Keratocytes Occ H Sodium 154 H Potassium 3.2 L Chloride 121 H Carbon Dioxide 22.0 Anion Gap 11 BUN 56 H Creatinine 1.59 H Estimated GFR 45 L POC Glucose 80 Random Glucose 80 Calcium 10.8 H Total Bilirubin 24.9 H AST 33 ALT 25 Alkaline Phosphatase 82 Total Protein 4.9 L Albumin 2.6 L 07/05/18 17:27 WBC RBC Hgb Hct MCV MCH MCHC RDW Plt Count MPV Prelim Diff (Auto) Neut % (Auto) Lymph % (Auto) [place] % (Auto) Eos % (Auto) Baso % (Auto) Neut # (Auto) Lymph # (Auto) [place] # (Auto) Eos # (Auto) Baso # (Auto) WBC Differential Seg Neuts % (Manual) Band Neuts % (Manual) Lymphocytes % (Manual) Monocytes % (Manual) Abs Neuts (Manual) Differential Comment Platelet Estimate Platelet Morphology Dimorphic RBCs Ovalocytes Acanthocytes (Spur) Keratocytes Sodium Potassium 3.6 Chloride Carbon Dioxide Anion Gap BUN Creatinine Estimated GFR POC Glucose Random Glucose Calcium Total Bilirubin AST ALT Alkaline Phosphatase Total Protein Albumin Microbiology 07/01/18 18:00 Blood - Peripheral Aerobic Blood Culture - Preliminary No growth in 4 days 07/01/18 18:00 Blood - Peripheral Anaerobic Blood Culture - Preliminary No growth in 4 days 07/01/18 17:50 Blood - Peripheral Aerobic Blood Culture - Preliminary No growth in 4 days 07/01/18 17:50 Blood - Peripheral Anaerobic Blood Culture - Preliminary No growth in 4 days Assessment and Plan (1) Liver cirrhosis Status: Acute Code(s): K74.60 - Unspecified cirrhosis of liver (2) Hep C w/o coma, chronic Status: Chronic Code(s): B18.2 - Chronic viral hepatitis C - Plan Liver cirrhosis Chronic hepatitis C/acute hepatitis B-patient restarted on antiviral for same ( Tenofovir). Encephalopathy UGI bleeding secondary to DU, Endoclip applied. Plan -Diet as tolerated -Keep platelets above 50k -Monitor for bleeding -Transfuse as needed -Continue IV Protonix -Monitor hemoglobin and hematocrit closely -Monitor coagulation studies closely -Supportive care -Plan of care as per critical care medicine (1) Liver cirrhosis Qualifiers: Hepatic cirrhosis type: other cirrhosis Qualified Code(s): K74.69 - Other cirrhosis of liver
--- NOTE | 2018-07-05 21:07 | P.PNCC ---
Critical Care Event Note Code activated: No Narrative: I spoke with Arley Valadez at [phone]. He states he wishes to change code status to DNR. He is aware patient may tonight. He agrees with administering comfort meds if there is evidence of suffering. Patient's condition is terminal and patient is not capacitated for medical decision- making. Critical care time: less than 30 mins
[2018-07-05] MEDS: Morphine Inj 4 MG/ML Vial IV.PUSH PRN ×2 (21:38→22:44)
[2018-07-05] MEDS: Melatonin 5 MG Tablet PO PRN (23:39)
[2018-07-06] MEDS: Pantoprazole Inj 80 MG in Sodium Chlor 0.9% Inj 100 ML IV.CONT SCH (02:18)
[2018-07-06] MEDS: Morphine Inj 4 MG/ML Vial IV.PUSH PRN ×3 (02:19→05:53)
[2018-07-06 07:19] LABS: Alanine Aminotransferase 83 U/L (12-78); Albumin 2.2 g/dL (3.4-5.0); Anion Gap 10 meq/L (5-15); Aspartate Aminotransferase 253 U/L (15-37); Blood Urea Nitrogen 65 mg/dL (7-18); Calcium 10.9 mg/dL (8.5-10.1); Carbon Dioxide 21.7 meq/L (21.0-32.0); Chloride 124 meq/L (98-107); Glomerular Filtration Rate 30 mL/min (>89)
[2018-07-06 07:21] LABS: Alkaline Phosphatase 84 U/L (45-117); Total Protein 4.2 g/dL (6.4-8.2)
[2018-07-06 07:28] LABS: Glucose,Random 6 mg/dL (74-106); Sodium 156 meq/L (136-145)
[2018-07-06] MEDS: Folic Acid 1 MG Tablet PO SCH (09:58)
[2018-07-06] MEDS: rifAXIMin 550 MG Tablet PO SCH (09:59)
[2018-07-06] MEDS: Sodium Chloride 0.9% 2 ML Flush BID IV.FLUSH SCH (09:59)
[2018-07-06] MEDS: Tenofovir 300 MG Tablet PO SCH (09:59)
[2018-07-06] MEDS: Phytonadione Inj 10 MG/ML Vial SQ SCH (09:59)
[2018-07-06] MEDS: Senna/Docusate Sodium 8.6/50 MG Tablet PO SCH (09:59)
--- NOTE | 2018-07-06 11:05 | P.PNCC ---
Subjective Subjective Remarks/Hospital Course: 07/01: Patient is a 58 y/o male with history of Hep B, Hep C, and liver cirrhosis admitted on 04/29 after being transferred from [facility] for staghorn renal calculus complicated by UTI. Urology was consulted at that time, deemed no surgical intervention needed at this time. Patient had been treated with IV antibiotics and antifungals for UTI. GI was consulted for management of end-stage liver disease and pancytopenia. Last EGD and colonoscopy in November 2016, portal hypertensive gastropathy noted on EGD. During the hospital course, he continued to decline with worsening liver function and coagulopathy. Today's a.m. labs showed a hemoglobin 8 platelet 29 INR 4.6 bilirubin of 20 BUN 57 with a creatinine of 1.66. Today evening patient developed large melanotic stools and became hypotensive a stat hemoglobin showed 6.6. I discussed with the medicine [employer] stat transfusion ordered for 2 units of PRBC, 2 units of FFP, 2 pack units of platelets, 1 pack units of cryoprecipitate. Patient continues to have worsening hypotension and was moved to the ICU critical care medicine was consulted I evaluated the patient in the ICU emergently. Currently systolic blood pressures in the 70s, Levophed had been started currently at 5 mcg/min. Patient is very encephalopathy unable to follow commands. Type and crossmatch, followed by blood transfusion is pending at this time. Palliative care is following, and at this time patient is a full code. Dr. Bonner from GI recommends PPI and supportive care. In addition to blood product resuscitation, I will started on octreotide infusion and Rocephin for SBP prophylaxis. Prognosis is guarded at this time. I suspect a variceal bleed. From GI notes it appears like patient had been evaluated for liver transplant at [facility] and had been declined 07/02: Blood pressure borderline. Received 4 units PRBCs last night along with 2 units FFP, 1 unit cryoprecipitate, 2 units platelets. Hemoglobin greater than 9 currently. Awaiting EGD and colonoscopy per GI. Patient is cleared for endoscopy per critical care. 07/03: Patient underwent EGD. Was found to have a duodenal ulcer with large visible vessel. No active bleeding noted. Clip was placed over vessel. Old blood was suctioned out from stomach during EGD. Patient remains on minimal Levophed for pressor support. Remains encephalopathic, on nasal cannula. 07/04: Patient's care complicated by end-stage hepatic cirrhosis. Coagulation profile again deteriorating. Bilirubin remains elevated. This is a clear-cut hospice situation with little hope for any type of meaningful existence during the remainder of the terminal stages. 07/05: This gentleman is actively dying from end-stage liver disease. He has severe protein calorie malnutrition and a coagulopathy. He is severely encephalopathic and his bilirubin is elevated above 20. 07/06: Patient remains critically ill. Patient is completely unresponsive no response to painful stimuli. Systolic blood pressure in mid 50s. Dr. Koehler spoke with patient's son Arley Valadez at [phone]. Per his wishes, changed code status to DNR. Currently seems imminent. I updated the niece at the bedside. Currently from palliative care also at the bedside will transition to comfort measures Objective Vital Signs / I&O: Vital Signs 07/05/18 11:15 07/05/18 11:30 07/05/18 11:45 Temperature Pulse Rate 97 H 97 H 97 H Respiratory Rate 21 23 21 Blood Pressure 88/55 L 80/53 L 85/55 L Pulse Oximetry 93 L 93 L 93 L 07/05/18 12:00 07/05/18 12:15 07/05/18 12:30 Temperature 94.8 F L 95.0 F L 95.4 F L Pulse Rate 109 H 114 H 115 H Respiratory Rate 41 H 35 H 25 H Blood Pressure 104/59 L 109/55 L 86/52 L Pulse Oximetry 90 L 92 L 91 L 07/05/18 12:45 07/05/18 13:00 07/05/18 13:15 Temperature 95.5 F L 95.9 F L 96.1 F L Pulse Rate 110 H 110 H 110 H Respiratory Rate 26 H 27 H 28 H Blood Pressure 86/54 L 87/50 L 79/53 L Pulse Oximetry 89 L 90 L 89 L 07/05/18 13:30 07/05/18 13:45 07/05/18 14:00 Temperature 96.3 F L 96.6 F L 97.0 F L Pulse Rate 109 H 110 H 111 H Respiratory Rate 29 H 31 H 59 H Blood Pressure 80/53 L 93/50 L 81/52 L Pulse Oximetry 91 L 91 L 89 L 07/05/18 14:15 12/02/18 14:25 07/05/18 14:30 Temperature 97.2 F L 97.3 F L 97.5 F L Pulse Rate 111 H 112 H 115 H Respiratory Rate 46 H 34 H 32 H Blood Pressure 79/49 L 62/41 L 66/39 L Pulse Oximetry 91 L 90 L 89 L 07/05/18 14:35 07/05/18 14:40 07/05/18 14:45 Temperature 97.5 F L 97.7 F 97.7 F Pulse Rate 114 H 117 H 116 H Respiratory Rate 32 H 31 H 31 H Blood Pressure 64/39 L 63/43 L 61/41 L Pulse Oximetry 90 L 90 L 90 L 07/05/18 14:50 07/05/18 15:00 07/05/18 15:01 Temperature 97.9 F 98.1 F 98.1 F Pulse Rate 116 H 120 H 119 H Respiratory Rate 32 H 32 H 33 H Blood Pressure 64/42 L 61/38 L Pulse Oximetry 90 L 90 L 91 L 07/05/18 15:16 07/05/18 15:21 07/05/18 15:31 Temperature 98.4 F 98.6 F Pulse Rate 120 H 125 H Respiratory Rate 30 H 33 H Blood Pressure 62/39 L 86/53 L Pulse Oximetry 91 L 92 L 92 L 07/05/18 15:46 07/05/18 16:00 07/05/18 16:01 Temperature 99.1 F 99.3 F 99.3 F Pulse Rate 123 H 127 H 127 H Respiratory Rate 31 H 33 H 33 H Blood Pressure 63/41 L 67/39 L Pulse Oximetry 91 L 89 L 90 L 07/05/18 16:16 07/05/18 16:31 07/05/18 16:46 Temperature 99.5 F 99.3 F 99.3 F Pulse Rate 128 H 132 H Respiratory Rate 30 H 35 H Blood Pressure 71/39 L 86/52 L 88/53 L Pulse Oximetry 89 L 91 L 92 L 07/05/18 17:00 07/05/18 17:01 07/05/18 17:16 Temperature 99.1 F 99.1 F 99.3 F Pulse Rate 131 H 128 H 125 H Respiratory Rate 33 H 35 H 28 H Blood Pressure 90/55 L 90/55 L 93/58 L Pulse Oximetry 92 L 91 L 93 L 07/05/18 17:31 07/05/18 17:46 07/05/18 18:00 Temperature 99.3 F 99.1 F 99.0 F Pulse Rate 122 H 122 H 122 H Respiratory Rate 28 H 27 H 31 H Blood Pressure 67/46 L 76/53 L Pulse Oximetry 93 L 93 L 91 L 07/05/18 18:05 07/05/18 18:16 07/05/18 19:31 Temperature Pulse Rate 126 H 119 H 125 H Respiratory Rate 31 H 28 H 50 H Blood Pressure 66/46 L 84/51 L 77/44 L Pulse Oximetry 90 L 91 L 92 L 07/05/18 19:46 07/05/18 19:50 07/05/18 20:00 Temperature Pulse Rate 126 H 123 H 122 H Respiratory Rate 32 H 50 H 31 H Blood Pressure 76/49 L 75/50 L Pulse Oximetry 92 L 92 L 93 L 07/05/18 20:02 07/05/18 20:06 07/05/18 20:16 Temperature 98.4 F Pulse Rate 122 H 123 H 126 H Respiratory Rate 31 H 28 H 31 H Blood Pressure 175/112 H 78/50 L 75/52 L Pulse Oximetry 93 L 92 L 07/05/18 20:31 07/05/18 20:50 07/05/18 21:00 Temperature Pulse Rate 122 H 124 H 124 H Respiratory Rate 26 H 27 H 28 H Blood Pressure 80/50 L 80/56 L Pulse Oximetry 92 L 91 L 91 L 07/05/18 21:01 07/05/18 21:16 07/05/18 22:00 Temperature Pulse Rate 123 H 124 H 122 H Respiratory Rate 26 H 27 H 30 H Blood Pressure 67/43 L 59/41 L Pulse Oximetry 91 L 91 L 90 L 07/05/18 22:03 07/05/18 22:42 07/05/18 23:00 Temperature Pulse Rate 120 H 119 H 117 H Respiratory Rate 26 H 28 H 47 H Blood Pressure 60/24 L 58/40 L Pulse Oximetry 90 L 92 L 93 L 07/05/18 23:38 07/06/18 00:00 07/06/18 00:08 Temperature Pulse Rate 117 H 115 H 115 H Respiratory Rate 52 H 22 47 H Blood Pressure 52/32 L 53/37 L Pulse Oximetry 92 L 92 L 92 L 07/06/18 00:38 07/06/18 01:00 07/06/18 01:08 Temperature 98.8 F Pulse Rate 111 H 110 H 109 H Respiratory Rate 44 H 41 H 41 H Blood Pressure 53/29 L 45/30 L Pulse Oximetry 92 L 92 L 92 L 07/06/18 01:38 07/06/18 02:00 07/06/18 02:08 Temperature Pulse Rate 108 H 107 H 106 H Respiratory Rate 40 H 38 H 38 H Blood Pressure 46/31 L 50/29 L Pulse Oximetry 92 L 92 L 92 L 07/06/18 02:38 07/06/18 03:00 07/06/18 03:08 Temperature Pulse Rate 104 H 102 H 103 H Respiratory Rate 31 H 30 H 30 H Blood Pressure 50/29 L 46/29 L Pulse Oximetry 90 L 90 L 90 L 07/06/18 03:38 07/06/18 04:00 07/06/18 04:08 Temperature Pulse Rate 101 H 100 H 100 H Respiratory Rate 29 H 25 H 25 H Blood Pressure 47/27 L 46/29 L Pulse Oximetry 91 L 90 L 91 L 07/06/18 04:38 07/06/18 05:00 07/06/18 05:08 Temperature Pulse Rate 98 H 97 H 96 H Respiratory Rate 21 12 22 Blood Pressure 47/29 L 46/27 L Pulse Oximetry 91 L 93 L 92 L 07/06/18 05:38 07/06/18 06:00 07/06/18 06:08 Temperature Pulse Rate 96 H 96 H 96 H Respiratory Rate 18 8 L 16 Blood Pressure 44/27 L 45/30 L Pulse Oximetry 91 L 91 L 90 L 07/06/18 06:38 07/06/18 07:00 07/06/18 07:08 Temperature 97.3 F L Pulse Rate 96 H 93 H 94 H Respiratory Rate 15 14 16 Blood Pressure 47/27 L 51/30 L Pulse Oximetry 88 L 90 L 90 L 07/06/18 07:38 07/06/18 08:00 07/06/18 08:08 Temperature Pulse Rate 96 H 97 H 96 H Respiratory Rate 17 16 16 Blood Pressure 56/32 L 57/36 L Pulse Oximetry 89 L 89 L 89 L 07/06/18 08:38 Temperature Pulse Rate 96 H Respiratory Rate 16 Blood Pressure 60/34 L Pulse Oximetry 91 L Intake & Output 07/05/18 07/06/18 07/06/18 18:59 06:59 18:59 Intake Total 630 / 630 300 / 300 Output Total 150 / 150 3 / 3 Balance 480 / 480 297 / 297 Weight 79.6 kg Intake: IV 500 / 500 300 / 300 Protonix Inj 80 MG In NS Inj 100 / 100 100 / 100 100 ML @ 10 mls/hr IV.CONT Q10H NIRAJ Rx#:[id number] Flexbumin 25% Inj 50 ML @ 60 100 / 100 mls/hr IV.SIG TID NIRAJ Rx#: [id number] Diflucan 100 mg Premix Bag 50 50 / 50 ML @ 50 mls/hr IV.SIG Q24H NIRAJ Rx#:[id number] Mycamine Inj 100 MG In NS Inj 100 / 100 100 ML @ 100 mls/hr IV.SIG Q24H NIRAJ Rx#:[id number] Levophed-Dextrose 4 mg/250 ml 50 / 50 Drip 4 mg In 250 ml @ 5 MCG/MIN 18.75 mls/hr IV.SIG TITRATE PRN Rx#:[id number] KCl 20 mEq Premix Inj 20 meq In 200 / 200 100 ml @ 50 mls/hr IV.SIG Q2H PRN Rx#:[id number] Rocephin Inj 1,000 MG In NS Inj 100 / 100 100 ML @ 200 mls/hr IV.SIG Q24H NIRAJ Rx#:[id number] Tube Feeding 100 / 100 Tube Irrigant 30 / 30 Output: Urine Amount (Catheter) 150 / 150 3 / 3 Indwelling Urethral Catheter 150 / 150 3 / 3 Other: Date of Last Bowel Movement 07/05/18 07/05/18 07/05/18 Result Diagrams: 07/05/18 05:19 07/06/18 06:35 Objective Remarks: GENERAL: Cachectic, chronically ill appearing male patient. Unresponsive and severely encephalopathy SKIN: Warm and dry. +Jaundiced. HEAD: Normocephalic. EYES: Pupils equal and round. Bilateral conjunctival icterus ENT: No nasal bleeding or discharge. Dry mucus membranes. Airway open and unobstructed. CARDIOVASCULAR: Regular rate and rhythm. Systolic murmur auscultated. Systolic blood pressure 54 RESPIRATORY: No accessory muscle use. Air entry equal. No adventitious sounds. GASTROINTESTINAL: Abdomen soft, non-tender, mildly distended. Quiet. MUSCULOSKELETAL: Extremities without clubbing, cyanosis, or edema. Tepid, adequately perfused. NEUROLOGICAL: Patient is encephalopathic and unresponsive. No eye opening no withdrawal to deep pain Assessment and Plan - Assessment and Plan Plan: ASSESSMENT: Hemorrhagic shock Severe encephalopathy Acute hypoxemic respiratory failure GI bleed Anemia requiring transfusion Severe coagulopathy with elevated INR Thrombocytopenia Hyperfibrinogenemia Hepatic encephalopathy UTI Acute kidney injury, Possible hepatorenal syndrome. Hepatitis B, hepatitis C Alcohol dependence PLAN: NEURO: -Receiving Xifaxan and lactulose -Hold while n.p.o. -Use Ativan and morphine for patient comfort as he is obviously terminal -Remains severely encephalopathic RESP: -DuoNeb as needed -Protecting airway at this time -Severely hypoxemic on 100% NRB CV: -Discontinue Levophed to keep map above 60 -Status post fluid and blood product -Continue IV albumin GI/HEME: -N.p.o., IV Protonix -Octreotide infusion stopped following EGD on 07/03 as patient did not have any varices. -Rocephin for SBP prophylaxis -s/p Transfused 4 units of PRBC, 2 units of FFP, 2 pack units of platelets, cryoprecipitate and calcium 2 g -Found to have duodenal ulcer with visible vessel which was clipped by GI during EGD on 07/03. -Pancytopenia and coagulopathy secondary to liver disease S/p treatment with Harvoni and recently tenofovir by GI with diagnosis of hepatitis B. The patient not compliant. Worked up in [facility] for liver transplant 2016 but was not a candidate due to social issues and lack of support. Last EGD and colonoscopy in November 2016, portal hypertensive gastropathy -Continue lactulose. Follow serial hemoglobin. : -Monitor renal function ID: -Rocephin for GI prophylaxis -Currently on Diflucan for Shante UTI, urine cx 04/30 and 06/28 C Glabrata- change to Micafungin ENDO: -Electrolyte replacement PROPH: -Bilateral lower extremity SCDs. IV Protonix. Chemical DVT prophylaxis is contraindicated due to high risk of bleeding. INR already prolonged. LINES: -Right subclavian central line placed 07/01/2018 Overall impression: This gentleman is critically ill with end-stage hepatic failure complicated by coagulopathy and encephalopathy. Patient is currently severely hypotensive systolic blood pressure in mid 50s while on Levophed. He is also severely encephalopathic and unresponsive hypoxemic on 100% nonrebreather. I have discussed with palliative care. Recommend transition to comfort measures as seems imminent. Critical care time 35 minutes aside from procedures. Code Status: DNR Discussed Condition With: D/W Randall Reyes at bedside and UNA
[2018-07-06] MEDS ORDERED: HYDROmorphone PF Inj 1 MG/ML Ampul IV.PUSH PRN (11:18)
--- NOTE | 2018-07-06 11:44 | P.PNPAL ---
Reason for Visit Reason for visit: a. To assist with evaluation and management of symptoms including: Encephalopathy, pain b. To assist medical decision maker(s) with: better understanding of current medical conditions; weighing benefits/burdens of medical treatment options; making medical treatment decisions. Subjective Subjective/Interval History: This 58-year-old patient who was transferred here to [facility] from [facility] in [place] on 04/29/18. There he had gone for evaluation of right-sided abdominal pain on 04/28. He also presented with constipation and dark urine. Abdominal CT indicative of portal hypertension changes, cirrhotic liver, and 3.5 cm staghorn calculus right kidney with possible mild duodenitis and cholelithiasis. + pancytopenia, + UTI - started on zosyn IV. He was transferred to [place] due to staghorn calculus w concomitant infection, and requiring a urologist evaluation. also noted to have chronic hep C, cirrhosis, stable Neuropsychiatry prev consulted to assist with determining if patient has capacity to make medical decisions. He had previously been deemed capacitated to make medical decisions however also was recommended for support outside of the hospital upon discharge due to cognitive deficits. . Seen today to follow-up on comfort, goals with patient and/or decision makers, called by nursing this am before my arrival on unit reporting family at bedside requesting follow up. Pt continued to deteriorate over the weekend. Requiring pressors. Remains encephalopathic, not responsive. Transfused platelets /. H&H 10.1/29.2, plt 40. No active bleeding reported. Bilirubin yesterday up to 24.9, today 20.7. Renal function worsening BUN 65/creatinine 2.29, GFR 30. Na 156. Episode respiratory distress overnight, critical care d/w brother/[facility] Arley, DNR was requested. d/w Dr. Tomlin, primary Nurse. patient seen in room 2 nieces at bedside. They are tearful. The endorse patient has continued to have significant decline, and brother Arley yesterday elected DNR. They request that he be allowed to be comfortable and had no further artificial measures. They feel they are prolonging suffering. They endorse he has remained nonresponsive. They do not wish to see him suffer. Advised I would review with brother Arley as he is a healthcare surrogate but we can transition to comfort focus treatments only today and allow patient to full end-of-life. Prognosis hours. Anticipatory guidance provided. Current blood pressure 50 systolic on Levophed 3 mics. Family/Friend Interactions: Call to Arley brother and HCS. Review w him current clinical assessment, recent diagnostics. He shares his discussion w providers and family over weekend regarding pt condition and deterioration. He asks if there was anything else that could be done at this point-- again review that pt disease process is end stage, terminal. Arley requests comfort measures only and for pt not to have any further artificial measures, if there are no further options for him. Review comfort measures, prognosis, and anticipatory guidance. Arley expresses gratitude for the care his brother received and from medical staff. Following this discussion comfort orders entered updated nursing. . Advance Directives Advance Directives Date on File: 05/07/18 Health Care Surrogate Name and Number: Names brothgeovanny Valadez (brett) Significant change in goals:: Brother and healthcare surrogate Arley elected transition to comfort focus only today. Objective Vital Signs: Vital Signs 07/05/18 11:15 07/05/18 11:30 07/05/18 11:45 Temperature Pulse Rate 97 H 97 H 97 H Respiratory Rate 21 23 21 Blood Pressure 88/55 L 80/53 L 85/55 L Pulse Oximetry 93 L 93 L 93 L 07/05/18 12:00 07/05/18 12:15 07/05/18 12:30 Temperature 94.8 F L 95.0 F L 95.4 F L Pulse Rate 109 H 114 H 115 H Respiratory Rate 41 H 35 H 25 H Blood Pressure 104/59 L 109/55 L 86/52 L Pulse Oximetry 90 L 92 L 91 L 07/05/18 12:45 07/05/18 13:00 07/05/18 13:15 Temperature 95.5 F L 95.9 F L 96.1 F L Pulse Rate 110 H 110 H 110 H Respiratory Rate 26 H 27 H 28 H Blood Pressure 86/54 L 87/50 L 79/53 L Pulse Oximetry 89 L 90 L 89 L 07/05/18 13:30 07/05/18 13:45 07/05/18 14:00 Temperature 96.3 F L 96.6 F L 97.0 F L Pulse Rate 109 H 110 H 111 H Respiratory Rate 29 H 31 H 59 H Blood Pressure 80/53 L 93/50 L 81/52 L Pulse Oximetry 91 L 91 L 89 L 07/05/18 14:15 07/05/18 14:25 07/05/18 14:30 Temperature 97.2 F L 97.3 F L 97.5 F L Pulse Rate 111 H 112 H 115 H Respiratory Rate 46 H 34 H 32 H Blood Pressure 79/49 L 62/41 L 66/39 L Pulse Oximetry 91 L 90 L 89 L 07/05/18 14:35 07/05/18 14:40 07/05/18 14:45 Temperature 97.5 F L 97.7 F 97.7 F Pulse Rate 114 H 117 H 116 H Respiratory Rate 32 H 31 H 31 H Blood Pressure 64/39 L 63/43 L 61/41 L Pulse Oximetry 90 L 90 L 90 L 07/05/18 14:50 07/05/18 15:00 07/05/18 15:01 Temperature 97.9 F 98.1 F 98.1 F Pulse Rate 116 H 120 H 119 H Respiratory Rate 32 H 32 H 33 H Blood Pressure 64/42 L 61/38 L Pulse Oximetry 90 L 90 L 91 L 07/05/18 15:16 07/05/18 15:21 07/05/18 15:31 Temperature 98.4 F 98.6 F Pulse Rate 120 H 125 H Respiratory Rate 30 H 33 H Blood Pressure 62/39 L 86/53 L Pulse Oximetry 91 L 92 L 92 L 07/05/18 15:46 07/05/18 16:00 07/05/18 16:01 Temperature 99.1 F 99.3 F 99.3 F Pulse Rate 123 H 127 H 127 H Respiratory Rate 31 H 33 H 33 H Blood Pressure 63/41 L 67/39 L Pulse Oximetry 91 L 89 L 90 L 07/05/18 16:16 07/05/18 16:31 07/05/18 16:46 Temperature 99.5 F 99.3 F 99.3 F Pulse Rate 128 H 132 H Respiratory Rate 30 H 35 H Blood Pressure 71/39 L 86/52 L 88/53 L Pulse Oximetry 89 L 91 L 92 L 07/05/18 17:00 07/05/18 17:01 07/05/18 17:16 Temperature 99.1 F 99.1 F 99.3 F Pulse Rate 131 H 128 H 125 H Respiratory Rate 33 H 35 H 28 H Blood Pressure 90/55 L 90/55 L 93/58 L Pulse Oximetry 92 L 91 L 93 L 07/05/18 17:31 07/05/18 17:46 07/05/18 18:00 Temperature 99.3 F 99.1 F 99.0 F Pulse Rate 122 H 122 H 122 H Respiratory Rate 28 H 27 H 31 H Blood Pressure 67/46 L 76/53 L Pulse Oximetry 93 L 93 L 91 L 07/05/18 18:05 07/05/18 18:16 07/05/18 19:31 Temperature Pulse Rate 126 H 119 H 125 H Respiratory Rate 31 H 28 H 50 H Blood Pressure 66/46 L 84/51 L 77/44 L Pulse Oximetry 90 L 91 L 92 L 07/05/18 19:46 07/05/18 19:50 07/05/18 20:00 Temperature Pulse Rate 126 H 123 H 122 H Respiratory Rate 32 H 50 H 31 H Blood Pressure 76/49 L 75/50 L Pulse Oximetry 92 L 92 L 93 L 07/05/18 20:02 07/05/18 20:06 07/05/18 20:16 Temperature 98.4 F Pulse Rate 122 H 123 H 126 H Respiratory Rate 31 H 28 H 31 H Blood Pressure 175/112 H 78/50 L 75/52 L Pulse Oximetry 93 L 92 L 07/05/18 20:31 07/05/18 20:50 07/05/18 21:00 Temperature Pulse Rate 122 H 124 H 124 H Respiratory Rate 26 H 27 H 28 H Blood Pressure 80/50 L 80/56 L Pulse Oximetry 92 L 91 L 91 L 07/05/18 21:01 07/05/18 21:16 07/05/18 22:00 Temperature Pulse Rate 123 H 124 H 122 H Respiratory Rate 26 H 27 H 30 H Blood Pressure 67/43 L 59/41 L Pulse Oximetry 91 L 91 L 90 L 07/05/18 22:03 07/05/18 22:42 07/05/18 23:00 Temperature Pulse Rate 120 H 119 H 117 H Respiratory Rate 26 H 28 H 47 H Blood Pressure 60/24 L 58/40 L Pulse Oximetry 90 L 92 L 93 L 07/05/18 23:38 07/06/18 00:00 07/06/18 00:08 Temperature Pulse Rate 117 H 115 H 115 H Respiratory Rate 52 H 22 47 H Blood Pressure 52/32 L 53/37 L Pulse Oximetry 92 L 92 L 92 L 07/06/18 00:38 07/06/18 01:00 07/06/18 01:08 Temperature 98.8 F Pulse Rate 111 H 110 H 109 H Respiratory Rate 44 H 41 H 41 H Blood Pressure 53/29 L 45/30 L Pulse Oximetry 92 L 92 L 92 L 07/06/18 01:38 07/06/18 02:00 07/06/18 02:08 Temperature Pulse Rate 108 H 107 H 106 H Respiratory Rate 40 H 38 H 38 H Blood Pressure 46/31 L 50/29 L Pulse Oximetry 92 L 92 L 92 L 07/06/18 02:38 07/06/18 03:00 07/06/18 03:08 Temperature Pulse Rate 104 H 102 H 103 H Respiratory Rate 31 H 30 H 30 H Blood Pressure 50/29 L 46/29 L Pulse Oximetry 90 L 90 L 90 L 07/06/18 03:38 07/06/18 04:00 07/06/18 04:08 Temperature Pulse Rate 101 H 100 H 100 H Respiratory Rate 29 H 25 H 25 H Blood Pressure 47/27 L 46/29 L Pulse Oximetry 91 L 90 L 91 L 07/06/18 04:38 07/06/18 05:00 07/06/18 05:08 Temperature Pulse Rate 98 H 97 H 96 H Respiratory Rate 21 12 22 Blood Pressure 47/29 L 46/27 L Pulse Oximetry 91 L 93 L 92 L 07/06/18 05:38 07/06/18 06:00 07/06/18 06:08 Temperature Pulse Rate 96 H 96 H 96 H Respiratory Rate 18 8 L 16 Blood Pressure 44/27 L 45/30 L Pulse Oximetry 91 L 91 L 90 L 07/06/18 06:38 07/06/18 07:00 07/06/18 07:08 Temperature 97.3 F L Pulse Rate 96 H 93 H 94 H Respiratory Rate 15 14 16 Blood Pressure 47/27 L 51/30 L Pulse Oximetry 88 L 90 L 90 L 07/06/18 07:38 07/06/18 08:00 07/06/18 08:08 Temperature Pulse Rate 96 H 97 H 96 H Respiratory Rate 17 16 16 Blood Pressure 56/32 L 57/36 L Pulse Oximetry 89 L 89 L 89 L 07/06/18 08:38 Temperature Pulse Rate 96 H Respiratory Rate 16 Blood Pressure 60/34 L Pulse Oximetry 91 L Intake & Output 07/05/18 07/06/18 07/06/18 18:59 06:59 18:59 Intake Total 630 / 630 300 / 300 Output Total 150 / 150 3 / 3 Balance 480 / 480 297 / 297 Weight 79.6 kg Intake: IV 500 / 500 300 / 300 Protonix Inj 80 MG In NS Inj 100 / 100 100 / 100 100 ML @ 10 mls/hr IV.CONT Q10H [facility] Rx#:[id number] Flexbumin 25% Inj 50 ML @ 60 100 / 100 mls/hr IV.SIG TID NIRAJ Rx#: [id number] Diflucan 100 mg Premix Bag 50 50 / 50 ML @ 50 mls/hr IV.SIG Q24H [facility] Rx#:[id number] Mycamine Inj 100 MG In NS Inj 100 / 100 100 ML @ 100 mls/hr IV.SIG Q24H [facility] Rx#:[id number] Levophed-Dextrose 4 mg/250 ml 50 / 50 Drip 4 mg In 250 ml @ 5 MCG/MIN 18.75 mls/hr IV.SIG TITRATE PRN Rx#:[id number] KCl 20 mEq Premix Inj 20 meq In 200 / 200 100 ml @ 50 mls/hr IV.SIG Q2H PRN Rx#:[id number] Rocephin Inj 1,000 MG In NS Inj 100 / 100 100 ML @ 200 mls/hr IV.SIG Q24H [facility] Rx#:[id number] Tube Feeding 100 / 100 Tube Irrigant 30 / 30 Output: Urine Amount (Catheter) 150 / 150 3 / 3 Indwelling Urethral Catheter 150 / 150 3 / 3 Other: Date of Last Bowel Movement 07/05/18 07/05/18 07/05/18 Physical Exam: CONSTITUTIONAL/GENERAL: This is a chronically ill appearing male, nonresponsive TUBES/LINES/DRAINS: PIV UE, central line, drake catheter SKIN: No rashes, or lesions. +multiple areas Ecchymoses & small petechiae scattered over body. Fading small ecchymosis above left eyebrow. severe jaundice. Skin warm/dry. + Generalized edema. open area skin tear rt hand. EYES: does not spont open eyes. Pupils sluggish reaction. + scleral icterus. No injection or drainage. Fundi not examined. ENT: Nose without bleeding or purulent drainage. Does not open mouth for oropharynx exam. CARDIOVASCULAR: Regular rate and rhythm , 3/6 systolic murmur . No JVD. Peripheral pulses are thready. Chronic vascular changes to skin bilateral lower legs. generalized edema, third spacing. RESPIRATORY/CHEST: Symmetric, unlabored respirations. shallow , pauses noted. On nonrebreather. Coarse rhonchi throughout. Diminished, minimal air movement to bases. GASTROINTESTINAL: Abdomen slightly firm, unable to determine tenderness, nondistended/slight splenomegaly .no ascites. Bowel sounds absent. MUSCULOSKELETAL: Extremities without clubbing, cyanosis. No joint tenderness or effusion noted. chronic vascular discoloration visible to bilateral lower legs , generalized weeping edema, NEUROLOGICAL: nonresponsive. Does not respond to my exam. No eye opening. Does not follow any commands. Does not verbalize. no movement to stimuli. PSYCHIATRIC: nonresponsive. Diagnostic Tests Laboratory: Laboratory Results - last 72 hr 07/03/18 07/03/18 07/03/18 10:07 13:00 13:00 WBC 8.0 RBC 2.33 L Hgb 8.4 L Hct 23.9 L MCV 102.5 H MCH 36.1 H MCHC 35.3 RDW 30.0 H Plt Count 72 L D MPV 7.6 Prelim Diff (Auto) Neut % (Auto) Lymph % (Auto) [place] % (Auto) Eos % (Auto) Baso % (Auto) Neut # (Auto) Lymph # (Auto) [place] # (Auto) Eos # (Auto) Baso # (Auto) WBC Differential Diff Scan Seg Neuts % (Manual) Band Neuts % (Manual) Lymphocytes % (Manual) Monocytes % (Manual) Abs Neuts (Manual) Differential Comment Platelet Estimate Platelet Morphology Dimorphic RBCs Pappenheimer Bodies Ovalocytes Beardsley Cells Acanthocytes (Spur) Keratocytes PT 23.7 H INR 2.3 Sodium Potassium Chloride Carbon Dioxide Anion Gap BUN Creatinine Estimated GFR POC Glucose Random Glucose Calcium Total Bilirubin AST ALT Alkaline Phosphatase Ammonia Total Protein Albumin Bld Prod Order Comment 07/03/18 07/03/18 07/03/18 13:00 18:58 22:13 WBC 7.4 RBC 2.45 L Hgb 8.6 L Hct 24.9 L MCV 101.7 H MCH 35.2 H MCHC 34.6 RDW 29.4 H Plt Count 55 L MPV 8.3 Prelim Diff (Auto) Slide review pending Neut % (Auto) 92.7 H Lymph % (Auto) 4.8 L [place] % (Auto) 1.9 Eos % (Auto) 0.3 Baso % (Auto) 0.3 Neut # (Auto) 6.9 Lymph # (Auto) 0.4 L [place] # (Auto) 0.1 Eos # (Auto) 0.0 Baso # (Auto) 0.0 WBC Differential Manual diff final Diff Scan Seg Neuts % (Manual) 92 H Band Neuts % (Manual) 5 Lymphocytes % (Manual) 2 L Monocytes % (Manual) 1 Abs Neuts (Manual) 7.2 Differential Comment . Platelet Estimate Low L Platelet Morphology Normal Dimorphic RBCs Present H Pappenheimer Bodies Present H Ovalocytes 1+ H Beardsley Cells 1+ H Acanthocytes (Spur) Keratocytes PT INR Sodium 152 H Potassium 3.9 Chloride 120 H Carbon Dioxide 25.8 Anion Gap 6 BUN 59 H Creatinine 1.59 H Estimated GFR 45 L POC Glucose 92 Random Glucose 81 Calcium 9.3 Total Bilirubin AST ALT Alkaline Phosphatase Ammonia Total Protein Albumin Bld Prod Order Comment 07/04/18 07/04/18 07/04/18 00:21 05:15 05:15 WBC RBC Hgb 9.3 L Hct 26.7 L MCV MCH MCHC RDW Plt Count MPV Prelim Diff (Auto) Neut % (Auto) Lymph % (Auto) [place] % (Auto) Eos % (Auto) Baso % (Auto) Neut # (Auto) Lymph # (Auto) [place] # (Auto) Eos # (Auto) Baso # (Auto) WBC Differential Diff Scan Seg Neuts % (Manual) Band Neuts % (Manual) Lymphocytes % (Manual) Monocytes % (Manual) Abs Neuts (Manual) Differential Comment Platelet Estimate Platelet Morphology Dimorphic RBCs Pappenheimer Bodies Ovalocytes Alicia Cells Acanthocytes (Spur) Keratocytes PT INR Sodium 154 H Potassium 3.5 Chloride 120 H Carbon Dioxide 24.4 Anion Gap 10 BUN 57 H Creatinine 1.47 H Estimated GFR 50 L POC Glucose Random Glucose 78 Calcium 10.2 H D Total Bilirubin 23.3 H AST 23 ALT 24 Alkaline Phosphatase 67 Ammonia 72 H Total Protein 4.7 L Albumin 2.5 L Bld Prod Order Comment 07/04/18 07/04/18 07/04/18 05:15 17:57 22:24 WBC 9.2 RBC 2.63 L Hgb 9.4 L Hct 26.8 L MCV 102.0 H MCH 35.7 H MCHC 35.0 RDW 29.6 H Plt Count 49 L MPV 8.8 Prelim Diff (Auto) Slide review pending Neut % (Auto) 94.7 H Lymph % (Auto) 3.1 L [place] % (Auto) 2.1 Eos % (Auto) 0.1 Baso % (Auto) 0.0 Neut # (Auto) 8.7 H Lymph # (Auto) 0.3 L [place] # (Auto) 0.2 Eos # (Auto) 0.0 Baso # (Auto) 0.0 WBC Differential . Diff Scan Auto diff confirmed Seg Neuts % (Manual) Band Neuts % (Manual) Lymphocytes % (Manual) Monocytes % (Manual) Abs Neuts (Manual) Differential Comment . Platelet Estimate Low L Platelet Morphology Normal Dimorphic RBCs Present H Pappenheimer Bodies Ovalocytes 2+ H Beardsley Cells Acanthocytes (Spur) Keratocytes PT INR Sodium Potassium Chloride Carbon Dioxide Anion Gap BUN Creatinine Estimated GFR POC Glucose 77 80 Random Glucose Calcium Total Bilirubin AST ALT Alkaline Phosphatase Ammonia Total Protein Albumin Bld Prod Order Comment 07/05/18 07/05/18 07/05/18 05:19 05:19 12:19 WBC 11.5 H RBC 2.87 L Hgb 10.1 L Hct 29.2 L MCV 101.6 H MCH 35.3 H MCHC 34.7 RDW 29.5 H Plt Count 40 L MPV 9.8 Prelim Diff (Auto) Slide review pending Neut % (Auto) 94.1 H Lymph % (Auto) 2.6 L [place] % (Auto) 3.1 Eos % (Auto) 0.1 Baso % (Auto) 0.1 Neut # (Auto) 10.8 H Lymph # (Auto) 0.3 L [place] # (Auto) 0.4 Eos # (Auto) 0.0 Baso # (Auto) 0.0 WBC Differential Manual diff final Diff Scan Seg Neuts % (Manual) 83 H Band Neuts % (Manual) 10 H Lymphocytes % (Manual) 3 L Monocytes % (Manual) 4 Abs Neuts (Manual) 10.7 H Differential Comment . Platelet Estimate Low L Platelet Morphology Normal Dimorphic RBCs Present H Pappenheimer Bodies Ovalocytes 1+ H Alicia Cells Acanthocytes (Spur) 1+ H Keratocytes Occ H PT INR Sodium 154 H Potassium 3.2 L Chloride 121 H Carbon Dioxide 22.0 Anion Gap 11 BUN 56 H Creatinine 1.59 H Estimated GFR 45 L POC Glucose 86 Random Glucose 80 Calcium 10.8 H Total Bilirubin 24.9 H AST 33 ALT 25 Alkaline Phosphatase 82 Ammonia Total Protein 4.9 L Albumin 2.6 L Bld Prod Order Comment 07/05/18 07/06/18 07/06/18 17:27 06:35 07:17 WBC RBC Hgb Hct MCV MCH MCHC RDW Plt Count MPV Prelim Diff (Auto) Neut % (Auto) Lymph % (Auto) [place] % (Auto) Eos % (Auto) Baso % (Auto) Neut # (Auto) Lymph # (Auto) [place] # (Auto) Eos # (Auto) Baso # (Auto) WBC Differential Diff Scan Seg Neuts % (Manual) Band Neuts % (Manual) Lymphocytes % (Manual) Monocytes % (Manual) Abs Neuts (Manual) Differential Comment Platelet Estimate Platelet Morphology Dimorphic RBCs Pappenheimer Bodies Ovalocytes Alicia Cells Acanthocytes (Spur) Keratocytes PT INR Sodium 156 H* Potassium 3.6 4.0 Chloride 124 H Carbon Dioxide 21.7 Anion Gap 10 BUN 65 H Creatinine 2.29 H Estimated GFR 30 L POC Glucose 79 Random Glucose 6 L* Calcium 10.9 H Total Bilirubin 20.7 H AST 253 H ALT 83 H Alkaline Phosphatase 84 Ammonia Total Protein 4.2 L D Albumin 2.2 L Bld Prod Order Comment Result Diagrams: 07/05/18 05:19 07/06/18 06:35 Microbiology: Microbiology 07/01/18 18:00 Aerobic Blood Culture - Final Blood - Peripheral No growth in 5 days Anaerobic Blood Culture - Final No growth in 5 days 07/01/18 17:50 Aerobic Blood Culture - Final Blood - Peripheral No growth in 5 days Anaerobic Blood Culture - Final No growth in 5 days Procedures: 07/03/18 EGD Assessment and Plan - Disease Oriented Problem List (1) Hepatitis B infection (2) Staghorn renal calculus (3) Acute UTI (4) Liver cirrhosis (5) Hep C w/o coma, chronic Pertinent Non-Medical Issues: Psychosocial: Patient indicates originally from [place]. Did live in [place] for about a year but has since been in [place] for several years. 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 Has 7 siblings though does not remain in close communication with them. Spiritual: Sikh, no particular affiliation. Requests water resource manager visit, water resource manager notified. Legal:Patient today mildly encephalopathic. Ammonia level elevated. Partially oriented. Appears capacitated enough to participate some in decision making but does not have full insight. He is able to designate healthcare surrogate names his brother Arley Valadez as someone he would trust to make decisions in an emergency. Would recommend shared decision making at this point given his fluctuating mental status. Ethical issues impacting care: No ethical issues identified Important Contacts: Brother Arley Valadez (Brett) in [place]- [facility] #[phone] XXX OLD# XXX [phone] Brother ARLEY in [facility] [phone] [facility] where Sister Sruthi is incarcerated [phone]/ Lieutenant [place]air . Prognosis: Patient is a poor historian, full medical history not readily available. Appears he has had some component of chronic liver disease, now with superimposed acute liver dysfunction. Hepatitis B, hepatitis C positive. Initiated on treatment here. Encephalopathic. Bilirubin trending up. Possible current acute disease process may be stable with ongoing aggressive treatment w antiviral, though he remains high risk for ongoing if liver disease does not stabilize or respond to treatment. He was stable for a few weeks of time here however he has had clinical deterioration in the past week, more pronounced in the past several days. Bilirubin uptrending, liver functions no longer elevating. Some hypotension . High risk for continued deterioration and . appropriate for hospice. Code Status: No Code DNR Plan: * Legal decision maker:Patient today mildly encephalopathic. Ammonia level elevated. Partially oriented. Appears capacitated enough to participate some in decision making but does not have full insight. He is able to designate healthcare surrogate names his brother Arley Valadez as someone he would trust to make decisions in an emergency. Would recommend shared decision making at this point given his fluctuating mental status.Brothers have previously indicated that they would be unable to help the patient physically or with housing for DC however they would remain available over the phone to assist him as needed. * Goals: Per initial interaction: patient goals stated to continue treatment he "wants to live ". He has limited insight and understanding at this time. Designated his brother Fortunato as healthcare surrogate. I have spoken at length with this brother today. He is in agreement to serve as HCS. Update and review of conditions provided today to brother. He wishes to talk to other family members, process information. No decisions made today. He plans to talk further with palliative tomorrow 05/12/18. He is unable to care for patient himself he lives out of state. He feels patient will likely need placement. Patient just moved here from [place] possibly in March at that time he had Medicaid coverage in [place]. * 07/06/18-transition to comfort focus only per healthcare surrogate Arley. Patient life expectancy hours. Comfort orders entered for dyspnea, tachypnea, anxiety, pain. Anticipatory guidance has been provided to family. * CODE STATUS: Full code * SYMPTOMS: --Pain-has had some ongoing pain to right flank/abdomen indicates this was new onset at time of presentation to [facility]. He has previously endorsed good relief with use of prn--indicates he had not previously been on any chronic opiates for chronic pain syndromes. Severe encephalopathy end- stage liver disease, terminal. Comfort orders entered today. --Encephalopathy-patient with fluctuating mental status, hepatitis, bilirubin trending up, ammonia level also up and down during hospitalization. Bilirubin at some point stopped trending up; however uptrending past few days, now 19. GI following, reconsulted RE suspected variceal bleed. s/p EGD . Was on PO On lactulose, rifaximin . Has been receiving hepatitis treatments. Previously oriented though forgetful. MELD 36.Severe encephalopathy end-stage liver disease, terminal. Comfort orders entered today. -- dyspnea/dysphagia- more lethargic, high risk for aspiration/respiratory decline 2/2 to neurological status. Now NPO. Severe encephalopathy end-stage liver disease, terminal. Comfort orders entered today. * Palliative care will continue to follow during hospital course as condition evolves, to assist patient/decision-maker with understanding of medical conditions, weighing benefits/burdens of treatment options, for clarification of goals of treatment. Additionally will assist with any symptoms of palliative concern Attestation Attestation: To help prompt me to consider important information that might be impacting today's encounter and assessment, information from prior notes written by myself or my colleagues may have been "brought forward" into today's note. My signature on this note, however, is an attestation that I personally performed the exam, history, and/or decision-making noted today, and, unless otherwise indicated, the interactions with patient, family, and staff as well as the review of records all occurred today. I also attest that the listed assessment and stated plan reflect my best clinical judgment today based on the combination of historical information, prior notes, and today's exam/ interactions. When time spent is documented, it refers only to time spent today by the signer, or if indicated, combined time spent today by collaborating physician/nurse practitioner.
--- NOTE | 2018-07-06 13:45 | P.DN ---
- Provider Primary care physician: No Primary Care Physician Consults: 04/29/18 06:26 Consult to Urology Routine Consulting Provider: Lam Linder Geophysical Data Technician:: Lam Linder Reason for Consultation: staghorn calculi Notified:: Service Spoke with:: Cynthia Date Notified:: 04/29/18 Time Notified:: 06:40 Ordering Provider: DANE 04/30/18 08:00 Consult to Hematology Routine Consulting Provider: Myke Carpio Reason for Consultation: pancytopenia Notified:: Service Spoke with:: Annie Date Notified:: 04/30/18 Time Notified:: 08:06 Ordering Provider: ANTIONE 04/30/18 18:43 Consult to Gastroenterology Routine Consulting Provider: Pema Lyn Reason for Consultation: Hep C, cirrhosis, portal hypertension, splenomegaly , pancytopenia- consult per [facility] reccomendations Notified:: Service Spoke with:: Wen Date Notified:: 04/30/18 Time Notified:: 18:47 Ordering Provider: ANTIONE 05/07/18 11:17 Consult to Palliative Care Routine Consulting Provider: Lisa Gomez Reason for Consultation: 58-year-old male with Hx ETOH liver cirrhosis, HCV, HBV with pancytopenia and coagulopathy. Please assist with establishing goals. Thank you. Notified:: Service Spoke with:: Gini Date Notified:: 05/07/18 Time Notified:: 11:38 Ordering Provider: VALERIE 05/20/18 12:49 HUB Only Consult Order Routine Consulting Provider: [facility],[place] 05/20/18 12:50 HUB Only Consult Order Routine Consulting Provider: [facility],[place] 05/27/18 14:43 Consult to Neuropsychology Routine Consulting Provider: Sukhdeep Mac Reason for Consultation: cognitive evaluation, for discharge planning Notified:: Physician Spoke with:: Dr Mac Date Notified:: 05/27/18 Time Notified:: 14:47 Ordering Provider: COLLEEN 06/16/18 14:37 Consult to Gastroenterology Routine Consulting Provider: Chula Mahoney Reason for Consultation: HX of HEp B on prescribed Tenofovir. Please evaluation on duration of treatment needed and f/u for discharge planning. Form will need to be filled out from patient assistance for meds Notified:: Office Spoke with:: KASSIDY Date Notified:: 06/16/18 Time Notified:: 14:44 Ordering Provider: COLLEEN 06/22/18 11:51 Consult to Palliative Care Routine Consulting Provider: Lisa Gomez Reason for Consultation: Liver failure and homeless Notified:: Service Spoke with:: sukumar Date Notified:: 06/22/18 Time Notified:: 11:57 Ordering Provider: COLLEEN 06/22/18 11:52 Consult to Neuropsychology Routine Consulting Provider: Sukhdeep Mac Reason for Consultation: reevaluate for capacity, patient declining with liver failure Notified:: Physician Spoke with:: lft msg Date Notified:: 06/22/18 Time Notified:: 11:55 Ordering Provider: COLLEEN 06/30/18 14:39 Consult to Gastroenterology Routine Consulting Provider: Becca Sanches Reason for Consultation: PEG tube placement Notified:: Office Spoke with:: KASSIDY Date Notified:: 06/30/18 Time Notified:: 14:44 Ordering Provider: GARRETT 07/01/18 21:10 Consult to Machine Stamper Stat Consulting Provider: Jonathan Tomlin For STAT consult, spoke directly to:: Dr. Tomlin Reason for Consultation: Hypotension/GI bleeding Notified:: Service Spoke with:: Shivam Date Notified:: 07/01/18 Time Notified:: 21:15 Ordering Provider: RACHEL 07/01/18 21:31 Consult to Gastroenterology Stat Consulting Provider: Becca Sanches For STAT consult, spoke directly to:: Dr. SANCHES Preferred Geophysical Data Technician:: Becca Sanches Reason for Consultation: GIB, hemorrhagic shock Notified:: Service Spoke with:: Shivam Date Notified:: 07/01/18 Time Notified:: 22:42 Ordering Provider: FABIAN - Admitting Diagnosis (1) Acute hypoxemic respiratory failure (2) Shock (3) Acute metabolic encephalopathy (4) GIB (gastrointestinal bleeding) (5) Sepsis (6) UTI (urinary tract infection) (7) Staghorn renal calculus (8) Liver cirrhosis (9) Hep C w/o coma, chronic (10) Hepatitis B infection - Date and Time Date of admission: 04/29/18 06:34 Date of : 07/06/18 Time of : 12:46 - Summary Details: See hospital course Procedures: Right subclavian central line 07/01/18 Brief History: 58-year-old male with past medical history of hep C liver cirrhosis, is ambulating in the wheelchair, the patient was transferred from [facility] and [place] where he went for evaluation due to right sided abdominal pain since the day before. He had constipation and dark urine. He denied any nausea vomiting dark stools or hematemesis. The patient had an abdominal CT that revealed portal hypertension changes cirrhotic liver and a 3.5 cm staghorn calculus on the right kidney with possible mild duodenitis and cholelithiasis. After reviewing his labs he appear to have pancytopenia and a urinary tract infection for which he was given Zosyn IV. 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 Result Diagrams: 07/05/18 05:19 07/06/18 06:35 Significant Findings: Abnormal Lab Results 07/05/18 07/05/18 07/06/18 12:19 17:27 06:35 Sodium 156 H* Potassium 3.6 4.0 Chloride 124 H Carbon Dioxide 21.7 Anion Gap 10 BUN 65 H Creatinine 2.29 H Estimated GFR 30 L POC Glucose 86 Random Glucose 6 L* Calcium 10.9 H Total Bilirubin 20.7 H AST 253 H ALT 83 H Alkaline Phosphatase 84 Total Protein 4.2 L D Albumin 2.2 L 07/06/18 07:17 Sodium Potassium Chloride Carbon Dioxide Anion Gap BUN Creatinine Estimated GFR POC Glucose 79 Random Glucose Calcium Total Bilirubin AST ALT Alkaline Phosphatase Total Protein Albumin Hospital Course: 07/01: Patient is a 58 y/o male with history of Hep B, Hep C, and liver cirrhosis admitted on 04/29 after being transferred from [facility] for staghorn renal calculus complicated by UTI. Urology was consulted at that time, deemed no surgical intervention needed at this time. Patient had been treated with IV antibiotics and antifungals for UTI. GI was consulted for management of end-stage liver disease and pancytopenia. Last EGD and colonoscopy in November 2016, portal hypertensive gastropathy noted on EGD. During the hospital course, he continued to decline with worsening liver function and coagulopathy. Today's a.m. labs showed a hemoglobin 8 platelet 29 INR 4.6 bilirubin of 20 BUN 57 with a creatinine of 1.66. Today evening patient developed large melanotic stools and became hypotensive a stat hemoglobin showed 6.6. 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 Patient continues to have worsening hypotension and was moved to the ICU critical care medicine was consulted I evaluated the patient in the ICU emergently. Currently systolic blood pressures in the 70s, Levophed had been started currently at 5 mcg/min. Patient is very encephalopathy unable to follow commands. Type and crossmatch, followed by blood transfusion is pending at this time. Palliative care is following, and at this time patient is a full code. Dr. Sanches from GI recommends PPI and supportive care. In addition to blood product resuscitation, I will started on octreotide infusion and Rocephin for SBP prophylaxis. Prognosis is guarded at this time. I suspect a variceal bleed. From GI notes it appears like patient had been evaluated for liver transplant at [facility] and had been declined 07/02: Blood pressure borderline. Received 4 units PRBCs last night along with 2 units FFP, 1 unit cryoprecipitate, 2 units platelets. Hemoglobin greater than 9 currently. Awaiting EGD and colonoscopy per GI. Patient is cleared for endoscopy per critical care. 07/03: Patient underwent EGD. Was found to have a duodenal ulcer with large visible vessel. No active bleeding noted. Clip was placed over vessel. Old blood was suctioned out from stomach during EGD. Patient remains on minimal Levophed for pressor support. Remains encephalopathic, on nasal cannula. 07/04: Patient's care complicated by end-stage hepatic cirrhosis. Coagulation profile again deteriorating. Bilirubin remains elevated. This is a clear-cut hospice situation with little hope for any type of meaningful existence during the remainder of the terminal stages. 07/05: This gentleman is actively dying from end-stage liver disease. He has severe protein calorie malnutrition and a coagulopathy. He is severely encephalopathic and his bilirubin is elevated above 20. 07/06: Patient remains critically ill. Patient is completely unresponsive no response to painful stimuli. Systolic blood pressure in mid 50s. Dr. Koehler spoke with patient's son Arley Valadez at [phone]. Per his wishes, changed code status to DNR. Currently seems imminent. I updated the niece at the bedside. Currently Kristine from palliative care also at the bedside will transition to comfort measures. Family decided to transition to comfort measures. Patient at 1246 on 07/06/2018
== END 2018-07-06 15:25 | disposition expired ==
LOC: NEPC 05:54 → NEDA 06:34 → NEPGCP 08:49 → N07 05-01 02:28 → HIMC 06-13 23:45 → N05 06-14 10:42 → N03 07-01 20:23
PROVIDERS: ADMIT Internal Medicine; ATTEND Internal Medicine
PROC: PANENDO (2018-07-03 13:30)
DX: R41.83 Borderline intellectual functioning; D53.9 Nutritional anemia, unspecified; A41.9 Sepsis, unspecified organism; M94.0 Chondrocostal junction syndrome [Tietze]; D68.8 Other specified coagulation defects; B16.9 Acute hepatitis B without delta-agent and without hepatic coma; K70.10 Alcoholic hepatitis without ascites; Z82.49 Family history of ischemic heart disease and other diseases of the circulatory system; H04.123 Dry eye syndrome of bilateral lacrimal glands; J96.01 Acute respiratory failure with hypoxia; E43 Unspecified severe protein-calorie malnutrition; F10.20 Alcohol dependence, uncomplicated; S00.81XA Abrasion of other part of head, initial encounter; Z51.5 Encounter for palliative care; Z59.0 Homelessness; Z90.49 Acquired absence of other specified parts of digestive tract; R57.8 Other shock; E87.0 Hyperosmolality and hypernatremia; E11.649 Type 2 diabetes mellitus with hypoglycemia without coma; D68.4 Acquired coagulation factor deficiency; E87.5 Hyperkalemia; B18.2 Chronic viral hepatitis C; D65 Disseminated intravascular coagulation [defibrination syndrome]; F12.90 Cannabis use, unspecified, uncomplicated; Z53.20 Procedure and treatment not carried out because of patient's decision for unspecified reasons; Z87.442 Personal history of urinary calculi; E87.70 Fluid overload, unspecified; F41.9 Anxiety disorder, unspecified; G93.41 Metabolic encephalopathy; B37.49 Other urogenital candidiasis; Z79.899 Other long term (current) drug therapy; K76.6 Portal hypertension; N20.0 Calculus of kidney; Z87.891 Personal history of nicotine dependence; K26.0 Acute duodenal ulcer with hemorrhage; D61.818 Other pancytopenia; E87.6 Hypokalemia; E87.1 Hypo-osmolality and hyponatremia; N17.9 Acute kidney failure, unspecified; S40.022A Contusion of left upper arm, initial encounter; Z66 Do not resuscitate; K31.89 Other diseases of stomach and duodenum; Z83.3 Family history of diabetes mellitus; G31.84 Mild cognitive impairment of uncertain or unknown etiology; K70.30 Alcoholic cirrhosis of liver without ascites; K70.40 Alcoholic hepatic failure without coma; W19.XXXA Unspecified fall, initial encounter; K25.3 Acute gastric ulcer without hemorrhage or perforation; R13.12 Dysphagia, oropharyngeal phase; K59.00 Constipation, unspecified